=== PATIENT | female | born 1965 | race Two or more races ===

== ENCOUNTER 2020-02-03 08:16 | Outpatient (REF) | payer MEDICAID, SELFPAY ==
[2020-02-03 09:18] LABS: MANUAL DIFF FLAG NO
[2020-02-03 09:26] LABS: Basophils Percent Auto 0.6 % (0-2); Eosinophils Absolute Auto 0.1 X10*3/uL (0.0-0.4); Eosinophils Percent Auto 1.6 % (0-4); Hematocrit 37.8 % (37-47); Hemoglobin 12.2 g/dl (12.0-16.0); Imm Gran Abs Auto 0.01 X10*3/uL (0.00-0.03); Imm Gran Pct Auto 0.2 % (0.0-0.4); Lymphocytes Absolute Auto 1.8 X10*3/uL (1.2-4.9); Lymphocytes Percent Auto 35.2 % (20-40); Mean Corpuscular HGB Conc 32.3 g/dl (31.0-35.0); Mean Corpuscular Hemoglobin 28.3 pg (27.0-33.0); Mean Corpuscular Volume 87.7 fL (80-98); Mean Platelet Volume 10.8 fL (9.4-12.3); Monocytes Absolute Auto 0.5 X10*3/uL (0.1-1.2); Monocytes Percent Auto 8.9 % (2-11); Neutrophils Absolute Auto 2.8 X10*3/uL (2.0-8.3); Neutrophils Percent Auto 53.5 % (45-73); Platelet Count 273 X10*3/uL (160-400); Red Blood Count 4.31 X10*6/uL (4.20-5.50); Red Cell Distribution Width 13.2 % (11.0-16.0); White Blood Count 5.1 X10*3/uL (4.8-10.8)
[2020-02-03 09:49] LABS: Estimated Average Glucose 108 mg/dL; Hemoglobin A1c % 5.4 %
[2020-02-03 09:52] LABS: Alanine Aminotransferase 38 U/L (0-31); Alkaline Phosphatase 98 U/L (39-117); Anion Gap 9 (12-20); Aspartate Amino Transferase 28 U/L (5-31); Bilirubin Total 0.6 mg/dL (0.0-1.0); Blood Urea Nitrogen 14 mg/dL (9-16); C Reactive Protein 0.15 mg/dL (< or = 0.50); Calcium 9.4 mg/dL (8.4-10.2); Carbon Dioxide 32 mmol/L (22-29); Chloride 106 mmol/L (96-108); Cholesterol 180 mg/dL; Estimated Glomerular Filt Rate > 60; Glucose Random 101 mg/dL (60-115); HDL Cholesterol 45 mg/dL; Iron 94 mcg/dL (30-160); LDL Cholesterol Calculated 97 mg/dl; Percent Iron Saturation 26 % (15-50); Potassium 4.1 mmol/l (3.3-5.1); Sodium 143 mmol/L (135-145); Total Iron Binding Capacity 360 mcg/dL (228-428); Total Protein 7.1 g/dL (6.5-8.0); Triglycerides 192 mg/dL; Unsaturated Iron Binding 266 ug/dL
[2020-02-03 10:15] LABS: Ferritin 13 ng/mL (10-250); TSH reflex Free T4 1.08 mIU/mL (0.32-4.0); Vitamin D 25-OH Total 29.5 ng/mL (>30)
[2020-02-03 10:44] LABS: Folate > 20.0 ng/mL (> or = 4.0); Vitamin B12 405 pg/mL (200-900)
[2020-02-04 11:36] LABS: Insulin Level Total 8.2 uIU/mL
[2020-02-06 13:26] LABS: Calcium (PTHI) 9.7 mg/dL (8.6-10.4); PTHI 58 pg/mL (14-64)
[2020-02-06 22:36] LABS: Zinc 70 mcg/dL (60-130)
[2020-02-07 13:36] LABS: Vitamin A 66 mcg/dL (38-98)
[2020-02-08 05:41] LABS: Vitamin B1 19 nmol/L (8-30)
== END 2020-02-03 08:17 | disposition home or self-care (01) ==
LOC: HO.LAB 08:16
PROVIDERS: PCP Nurse Practitioner Family; Visit Provider Physician Assistant
DX: Z98.84 Bariatric surgery status (principal); E78.2 Mixed hyperlipidemia; I10 Essential (primary) hypertension; J30.9 Allergic rhinitis, unspecified; J45.40 Moderate persistent asthma, uncomplicated; Z79.899 Other long term (current) drug therapy
CPT/HCPCS: 36415; 80053; 80061; 82306; 82607; 82728; 82746; 83036; 83525; 83540; 83970; 84425; 84443; 84590; 84630; 85025; 86140

== ENCOUNTER → 2020-02-14 12:48 | Outpatient (BNVA) | payer MEDICAID, SELFPAY | PROVIDERS: Visit Provider Physician Assistant | DX: E66.9 Obesity, unspecified (principal); Z68.36 Body mass index [BMI] 36.0-36.9, adult; E55.9 Vitamin D deficiency, unspecified; Z98.84 Bariatric surgery status | CPT/HCPCS: 99214 ==

== ENCOUNTER 2020-02-19 15:03 | Outpatient (REF) | payer MEDICAID, SELFPAY ==
--- NOTE | 2020-02-19 15:13 | XR_ITS ---
EXAMINATION: XR CERVICAL SPINE CLINICAL INFORMATION: Cervicalgia COMPARISON: Cervical spine x-rays of 12/21/2016 TECHNIQUE: Cervical spine 5 views: AP, lateral, bilateral oblique and open-mouth views. FINDINGS: The vertebral body heights and alignment are maintained. Intervertebral disc spaces are preserved. Atlantoaxial distance is normal. No evidence of prevertebral soft tissue swelling. The airway is patent. Multilevel small anterior endplate osteophytes are noted. Open-mouth views are unremarkable. No evidence of cervical ribs. Visualized lung apices are clear. Mild narrowing of the right C3-C4 and C4-C5 neural foramina and left C5-C6 and C6-C7 neural foramina. Mild facet arthropathy at multiple levels. No evidence of cervical ribs. Visualized lung apices are clear. Open-mouth view is unremarkable. XR/XR cervical spine 4V IMPRESSION: Mild cervical spondylosis, likely mildly increased since the previous study.
== END 2020-02-19 15:04 | disposition home or self-care (01) ==
LOC: HO.XRAY 15:03
PROVIDERS: PCP Nurse Practitioner Family; Visit Provider Emergency Medicine
DX: M54.2 Cervicalgia (principal)
CPT/HCPCS: 72050

== ENCOUNTER → 2020-02-27 10:36 | Outpatient (BNVA) | payer MEDICAID, SELFPAY | PROVIDERS: PCP Nurse Practitioner Family; Referring Provider Nurse Practitioner Family; Visit Provider Internal Medicine | DX: E66.9 Obesity, unspecified (principal); G47.33 Obstructive sleep apnea (adult) (pediatric); J44.9 Chronic obstructive pulmonary disease, unspecified; I10 Essential (primary) hypertension; E78.5 Hyperlipidemia, unspecified; Z88.2 Allergy status to sulfonamides; Z99.89 Dependence on other enabling machines and devices; Z79.899 Other long term (current) drug therapy | CPT/HCPCS: 99212 ==

== ENCOUNTER 2020-03-31 13:00 | Outpatient (RCR) | payer MEDICAID, SELFPAY | END 2020-05-12 10:55 | disposition other institution (70) | LOC: HO.PT 13:00 | PROVIDERS: PCP Emergency Medicine; Visit Provider Emergency Medicine | DX: M54.2 Cervicalgia (principal) | CPT/HCPCS: 97110; 97112; 97140; 97162; 97535 ==

== ENCOUNTER 2020-04-14 11:08 | Outpatient (REF) | payer MEDICAID, SELFPAY ==
--- NOTE | 2020-04-14 | MM_ITS ---
EXAMINATION: MM SCREENING DIGITAL BREAST TOMOSYNTHESIS, BILATERAL CLINICAL INFORMATION: Screening. Asymptomatic. The lifetime risk of breast cancer based on the Tyrer-Cuzick Model is 9%. COMPARISON: Mammography: 04/11/2019, 04/05/2018, 03/13/2017 TECHNIQUE: Digital breast tomosynthesis is performed in both the craniocaudal and mediolateral oblique views along with computer-aided detection (CAD). Synthesized 2D images are generated from the tomosynthesis. FINDINGS: There are scattered areas of fibroglandular density (ACR BI-RADS breast composition Category b). Breast tissue composition borders on predominantly fatty. Background stromal and fibroglandular densities are stable. There is no interval mass or architectural abnormality or abnormal calcifications. No significant changes. MM/MM tomosynthesis screening BI IMPRESSION: No mammographic evidence of malignancy. ASSESSMENT: BI-RADS 1: Negative RECOMMENDATION: Routine annual mammography screening. This patient's information was entered into a reminder system with a target due date for their next mammogram.
== END 2020-04-14 11:09 | disposition home or self-care (01) ==
LOC: HO.MAMMO 11:08
PROVIDERS: PCP Nurse Practitioner Family; Visit Provider Nurse Practitioner Family
DX: Z12.31 Encounter for screening mammogram for malignant neoplasm of breast (principal)
CPT/HCPCS: 77063; 77067

== ENCOUNTER 2020-07-23 11:09 | Outpatient (REF) | payer MEDICAID, SELFPAY ==
--- NOTE | ~2020-07-23 | XR_ITS ---
EXAMINATION: XR HIP, LEFT CLINICAL INFORMATION: Left hip pain COMPARISON: None TECHNIQUE: Two views of the left hip. FINDINGS: There is no fracture, dislocation, destructive process. No definite focal hip joint narrowing, subchondral sclerosis, erosive change, or chondrocalcinosis. The left SI joint and pubis are unremarkable. There are incidental calcified phleboliths in the pelvis. XR/XR hip LT min 2V IMPRESSION: Unremarkable left hip.
--- NOTE | ~2020-07-23 | XR_ITS ---
EXAMINATION: XR KNEE, LEFT CLINICAL INFORMATION: Unilateral primary osteoarthritis left knee. COMPARISON: Standing AP knees and left knee 01/03/2020. TECHNIQUE: Four views of the left knee. FINDINGS: There is no fracture, dislocation, or effusion. Hoffa's fat pad appears normal. There is normal bony mineralization. There is mild tricompartment osteoarthritis, greatest medial knee joint compartment with joint narrowing and marginal osteophytes. There may be some trace faint meniscal chondrocalcinosis on both the medial lateral sides. There is no erosive change. There is spurring at the quadriceps insertion patella and origin patella tendon. XR/XR knee LT 4V IMPRESSION: 1. Mild lateral patellar spurring. 2. Mild tricompartment osteoarthritis, greatest medial compartment. 3. No erosive change or suprapatellar effusion. 4. Spurring extensor mechanism.
--- NOTE | ~2020-07-23 | XR_ITS ---
EXAMINATION: XR LUMBOSACRAL SPINE WITH OBLIQUES CLINICAL INFORMATION: Low back pain. COMPARISON: Radiographs lumbosacral spine 08/26/2019 TECHNIQUE: Lumbar spine is imaged in 5 views: AP, lateral, bilateral oblique, and lateral view coned to lumbosacral junction. FINDINGS: There is normal lumbar segmentation with 5 [id number] lumbar vertebrae. There is normal vertebral height with no compression and no spondylolisthesis or spondylolysis. There are mild degenerative disc changes again present with borderline disc narrowing and vertebral spurring at T12-L1 and L3-L4. There is also anterior vertebral spurring L2-L3. Facet degeneration is present L4-S1. The SI joints and visualized sacrum are unremarkable. XR/XR lumbar spine 4V min IMPRESSION: Degenerative disc and degenerative facet changes similar to prior study 08/26/2019. No interval vertebral compression, spondylolisthesis, or spondylolysis.
== END 2020-07-23 11:10 | disposition home or self-care (01) ==
LOC: HO.XRAY 11:09
PROVIDERS: PCP Internal Medicine; Visit Provider Internal Medicine
DX: M17.12 Unilateral primary osteoarthritis, left knee (principal); M25.552 Pain in left hip; M54.5 Low back pain
CPT/HCPCS: 72110; 73502; 73564

== ENCOUNTER → 2020-09-15 10:50 | Outpatient (BNVA) | payer MEDICAID, SELFPAY | PROVIDERS: PCP Internal Medicine; Visit Provider Internal Medicine | DX: J44.9 Chronic obstructive pulmonary disease, unspecified (principal); G47.33 Obstructive sleep apnea (adult) (pediatric); E66.9 Obesity, unspecified; J30.9 Allergic rhinitis, unspecified; Z99.89 Dependence on other enabling machines and devices | CPT/HCPCS: 99212 ==

== ENCOUNTER 2020-09-16 10:48 | Outpatient (REF) | payer MEDICAID, SELFPAY ==
--- NOTE | ~2020-09-16 | XR_ITS ---
EXAMINATION: XR HAND, RIGHT CLINICAL INFORMATION: Pain right hand. COMPARISON: Radiographs right hand 05/23/2019 TECHNIQUE: PA, lateral, and oblique views of the right hand. FINDINGS: Bony mineralization is normal. There is no fracture, dislocation or destructive process. Ulnar variance is within neutral. The carpus shows no erosive change or chondrocalcinosis. There is borderline narrowing triscaphe joint. The MCP joints are unremarkable. The PIP joints are unremarkable. There are borderline degenerative changes 5th finger DIP joint without erosive change. XR/XR hand RT min 3V IMPRESSION: 1. Borderline narrowing triscaphe joint lateral carpus. 2. Borderline degenerative change 5th finger DIP joint. 3. No erosive change or chondrocalcinosis.
== END 2020-09-16 10:49 | disposition home or self-care (01) ==
LOC: HO.XRAY 10:48
PROVIDERS: PCP Internal Medicine; Visit Provider Internal Medicine
DX: M79.644 Pain in right finger(s) (principal)
CPT/HCPCS: 73130

== ENCOUNTER → 2020-10-23 09:29 | Outpatient (BNVA) | payer MEDICAID, SELFPAY | PROVIDERS: Visit Provider Orthopaedic Surgery | DX: G56.03 Carpal tunnel syndrome, bilateral upper limbs (principal); M65.331 Trigger finger, right middle finger; M65.341 Trigger finger, right ring finger; M20.011 Mallet finger of right finger(s) | CPT/HCPCS: 99202 ==

== ENCOUNTER 2020-10-30 08:41 | Emergency (ER) | payer MEDICAID, SELFPAY ==
[2020-10-30] VITALS (7 sets, daily range): BP systolic 122–137; BP diastolic 65–83; PULSE 69–109; RESP 16–22; TEMP 36.3–37.4; O2SAT 95–98; BMI 41.5
--- NOTE | ~2020-10-30 | XR_ITS ---
EXAMINATION: XR CHEST CLINICAL INFORMATION: Asthma COMPARISON: Previous chest x-ray most recent January 2017 TECHNIQUE: Frontal view of the chest was obtained. FINDINGS: The cardiac and mediastinal contours are normal. The lungs are clear. There is no pleural effusion or pneumothorax. There are surgical clips under the left hemidiaphragm in the region of the stomach. There are mild degenerative changes of the thoracic spine. XR/XR chest 1V IMPRESSION: No evidence for acute disease in chest.
--- NOTE | 2020-10-30 10:00 | ED.ASTHMA ---
HPI - Asthma General Chief Complaint: Asthma Stated Complaint: asthma - difficulty breathing Time Seen by Provider: 10/30/20 09:46 Source: patient and freelance interpreter/translator Mode of arrival: ambulatory Limitations: language barrier History of Present Illness HPI Narrative: 55-year-old female coming in to the emergency department with complaints of sore throat and some shortness of breath with wheezing and cough for 5 days. Subjective fevers and chills and body aches at home. Using home nebulizer with continued symptoms. She was vaccinated for COVID and Brina. no chest pain, leg swelling or pain Related Data Home Medications Medication Instructions Recorded Confirmed albuterol sulfate 90 mcg/actuation 2 puff INHALATION Q6H PRN 02/27/20 aerosol inhaler atorvastatin 40 mg tablet 40 mg PO BEDTIME 02/27/20 citalopram 20 mg tablet 20 mg PO DAILY 02/27/20 cyanocobalamin (vitamin B-12) 500 500 mcg PO DAILY 02/27/20 mcg tablet docusate sodium 100 mg capsule 100 mg PO BID 02/27/20 epinephrine 0.3 mg/0.3 mL 0.3 mg IM Q10M PRN 02/27/20 injection, auto-injector fluticasone 250 mcg-salmeterol 50 1 inh INHALATION BID 02/27/20 mcg/dose blistr powdr for inhalation fluticasone propionate 50 1 spray INTRANASAL DAILY 02/27/20 mcg/actuation nasal spray,suspension furosemide 40 mg tablet 40 mg PO DAILY 02/27/20 ipratropium 0.5 mg-albuterol 3 mg 3 ml INHALATION Q6-8H PRN 02/27/20 (2.5 mg base)/3 mL nebulization soln iron,carbonyl 30 mg-folic acid 800 1 tab PO DAILY 02/27/20 zek-zhynmumb-syip chewable tablet loperamide-simethicone 2 mg-125 mg 1 tab PO Q3H PRN 02/27/20 tablet loratadine 10 mg capsule 10 mg PO DAILY 02/27/20 lorazepam 0.5 mg tablet 0.5 mg PO BID PRN 02/27/20 metformin 500 mg tablet 500 mg PO DAILY 02/27/20 montelukast 10 mg tablet 10 mg PO BEDTIME 02/27/20 olopatadine 0.1 % eye drops 1 drp OPHTHALMIC (EYE) BID 02/27/20 olopatadine 0.2 % eye drops 1 drp OPHTHALMIC (EYE) DAILY 02/27/20 pantoprazole 40 mg tablet,delayed 40 mg PO DAILY 02/27/20 release phentermine 30 mg capsule 30 mg PO DAILY 02/27/20 tramadol 50 mg tablet 50 mg PO DAILY 02/27/20 zolpidem 10 mg tablet 10 mg PO BEDTIME PRN 02/27/20 Previous Rx's Medication Instructions Recorded cholecalciferol (vitamin D3) 25 25 mcg PO DAILY #30 cap 02/14/20 mcg (1,000 unit) capsule diclofenac sodium 75 mg 75 mg PO BID #60 tab 05/08/20 tablet,delayed release albuterol sulfate 2.5 mg INHALATION Q4H PRN #75 ml 10/30/20 prednisone 40 mg PO DAILY #8 tab 10/30/20 Allergies Allergy/AdvReac Type Severity Reaction Status Date / Time sulfamethoxazole Allergy Intermediate RASH Verified 10/23/20 10:31 [From Bactrim] Review of Systems Review of Systems: Yes all other systems are reviewed and are negative Constitutional: Constitutional: Reports no additional constitutional complaints, Reports body ache(s), Reports chills, Reports fever(s), Denies headache(s) and Denies weakness Eyes: Eyes: Reports no additional eye complaints and Denies change in vision ENT: Reports system reviewed and no additional complaints, except as documented, Denies dizziness, Denies headache(s), Denies nasal congestion, Denies nasal discharge, Denies neck pain and Reports sore throat Cardiovascular: Cardiovascular: Reports no additional cardiovascular complaints, Denies chest pain, Denies leg edema and Reports dyspnea Respiratory: Respiratory: Reports no additional respiratory complaints, Reports cough and Reports dyspnea Gastrointestinal: Gastrointestinal: Reports no additional gastrointestinal complaints, Denies abdominal pain, Denies diarrhea, Denies nausea and Denies vomiting Genitourinary: Genitourinary: Reports no additional female genitourinary complaints and Denies urinary incontinence Musculoskeletal: Musculoskeletal: Reports no additional musculoskeletal complaints, Denies back pain, Denies arthralgias, Denies joint swelling, Denies neck pain, Denies numbness and Denies tingling Integumentary/Breasts: Skin/Breast: Reports system reviewed and no additional complaints, except as docu and Denies rash Neurologic: Reports system reviewed and no additional complaints, except as documented, Denies Abnormal speech present, Denies dizziness, Denies headache(s), Denies numbness, Denies tingling and Denies weakness PMFSH Past Medical History Attestation statement: The following information was validated with the patient. Source: old records reviewed and nursing notes reviewed Medical History Allergic rhinitis Arthritis Asthma Axillary hidradenitis suppurativa COPD (chronic obstructive pulmonary disease) GERD (gastroesophageal reflux disease) Hyperlipidemia Hypertension Obesity (BMI 30-39.9) Obstructive sleep apnea KAYLEE on CPAP Renal stones Surgical History H/O hemicolectomy H/O lithotripsy H/O tubal ligation Hx of cholecystectomy S/P laparoscopic sleeve gastrectomy Family History Family History Mother No problems noted. Father No problems noted. Son No problems noted. Daughter No problems noted. Son No problems noted. Sister No problems noted. Sister No problems noted. Brother No problems noted. Brother No problems noted. Brother No problems noted. Brother No problems noted. 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 Physical Exam Vital Signs: Vital Signs: Last Vital Signs Temp 98.8 F 10/30/20 16:37 Pulse 100 10/30/20 16:37 Resp 20 10/30/20 16:37 BP 132/73 10/30/20 16:37 Pulse Ox 98 10/30/20 16:37 Body Mass Index 41.5 Const: General: cooperative, healthy appearing, comfortable and no acute distress Orientation/consciousness: patient oriented x3 Limitations: no limitations HENMT: Head: Yes normal to inspection Ears: hearing grossly normal bilaterally General nose exam: Normal external nose present Face and sinus: Yes normal facial exam Mouth: Normal oral and palatal mucosa present Throat: Yes posterior oropharynx normal Eyes: General: appearance normal, both eyes and all related structures Pupils: Equal, round and reactive pupils present Neck: Neck: Yes normal visual inspection Chest: Chest palpation & inspection: normal inspection of the chest Resp: Other: expiratory wheezing throughout Effort & Inspection: normal respiratory effort Cardio: Rate: regular rate Rhythm: regular rhythm Peripheral pulses: Peripheral pulses 2+ throughout GI: Inspection: Yes normal to inspection Palpation (GI): Soft to palpation and nontender Auscultation: normal bowel sounds Back/Spine/Pelvis: Thoracic/Lumbar Spine: thoracic and lumbar spine normal to inspection Skin: General skin exam: no rashes or lesions noted Neuro: General: patient oriented x3, no focal motor deficits and normal sensation to monofilament Cranial nerves: Yes Equal, round and reactive pupils present Cognition (Neuro): normal cognition Speech: No Abnormal speech present Gait exam (Neuro): Normal gait present Motor exam (neuro): 5/5 motor strength present throughout Extrem: General: Yes normal to inspection, Yes no pedal edema and Yes no calf tenderness Course Course Course Narrative: 55-year-old female here with flu-like symptoms x5 days. H/o asthma triggered by infections. will check labs, chest x-ray, EKG, COVID screen. Will give DuoNeb, Solu-Medrol and magnesium - Labs unremarkable with the exception of hypo magnesemia. This was replaced the IV. Chest x-ray shows no acute finding. EKG shows no ischemic changes. COVID screen negative. Likely viral syndrome which is triggering her asthma. Patient is feeling improved. Will need ambulation trial with pulse oximeter prior dispo home. 1530-Ambulated with oxugen saturation >97%. Mild tachycardia but likely secondary to repeated albuterol treatments. Feeling much better. Likely asthma exacerbation triggered by viral syndrome. Reviewed worrisome signs and symptoms and when to return to the emergency department. Comfortable discharge home. MDM - Asthma MDM Narrative Medical decision making narrative: viral syndrome Differential Diagnosis Differential diagnosis: Likely Acute exacerbation and Pneumonia Medical Records Attestation: I reviewed the patient's medical records. Lab Data Attestation: I reviewed the patient's lab results. Result diagrams: 10/30/20 10:42 10/30/20 10:42 Labs: Lab Results 10/30/20 10/30/20 10/30/20 Range/Units 10:42 10:42 10:42 WBC 8.0 (4.8-10.8) X10*3/uL RBC 4.12 L (4.20-5.50) X10*6/uL Hgb 11.4 L (12.0-16.0) g/dl Hct 34.7 L (37-47) % MCV 84.2 (80-98) fL MCH 27.7 (27.0-33.0) pg MCHC 32.9 (31.0-35.0) g/dl RDW 13.7 (11.0-16.0) % Plt Count 249 (160-400) X10*3/uL MPV 10.8 (9.4-12.3) fL Immature Gran % (Auto) 0.5 H (0.0-0.4) % Neut % (Auto) 69.3 (45-73) % Lymph % (Auto) 21.3 (20-40) % [place] % (Auto) 8.0 (2-11) % Eos % (Auto) 0.6 (0-4) % Baso % (Auto) 0.3 (0-2) % Lymph # (Auto) 1.7 (1.2-4.9) X10*3/uL [place] # (Auto) 0.6 (0.1-1.2) X10*3/uL Eos # (Auto) 0.1 (0.0-0.4) X10*3/uL Baso # (Auto) 0.0 (0.0-0.2) X10*3/uL Abs Immat Gran (auto) 0.04 H (0.00-0.03) X10*3/uL Absolute Neuts (auto) 5.6 (2.0-8.3) X10*3/uL Absolute Nucleated RBC 0.000 (0.0-0.012) X10*3/uL Nucleated RBC % (auto) 0.0 (0.0-0.2) /100WBC Sodium 143 (135-145) mmol/L Potassium 3.4 (3.3-5.1) mmol/L Chloride 106 (96-108) mmol/L Carbon Dioxide 28 (22-29) mmol/L Anion Gap 12 (12-20) BUN 10 (9-16) mg/dL Creatinine 0.83 (0.5-1.4) mg/dL Estim Creat Clear Calc 80.9 Estimated GFR > 60 Random Glucose 98 (60-115) mg/dL Calcium 9.1 (8.4-10.2) mg/dL Magnesium 1.2 L* (1.6-2.6) mg/dL Troponin I High Sens < 3.5 (<3.5-17.0) ng/L Coronavirus (PCR) (Negative) Influenza Type A (PCR) (Negative) Influenza Type B (PCR) (Negative) RSV RNA Qual (PCR) (Negative) 10/30/20 Range/Units 10:42 WBC (4.8-10.8) X10*3/uL RBC (4.20-5.50) X10*6/uL Hgb (12.0-16.0) g/dl Hct (37-47) % MCV (80-98) fL MCH (27.0-33.0) pg MCHC (31.0-35.0) g/dl RDW (11.0-16.0) % Plt Count (160-400) X10*3/uL MPV (9.4-12.3) fL Immature Gran % (Auto) (0.0-0.4) % Neut % (Auto) (45-73) % Lymph % (Auto) (20-40) % [place] % (Auto) (2-11) % Eos % (Auto) (0-4) % Baso % (Auto) (0-2) % Lymph # (Auto) (1.2-4.9) X10*3/uL [place] # (Auto) (0.1-1.2) X10*3/uL Eos # (Auto) (0.0-0.4) X10*3/uL Baso # (Auto) (0.0-0.2) X10*3/uL Abs Immat Gran (auto) (0.00-0.03) X10*3/uL Absolute Neuts (auto) (2.0-8.3) X10*3/uL Absolute Nucleated RBC (0.0-0.012) X10*3/uL Nucleated RBC % (auto) (0.0-0.2) /100WBC Sodium (135-145) mmol/L Potassium (3.3-5.1) mmol/L Chloride (96-108) mmol/L Carbon Dioxide (22-29) mmol/L Anion Gap (12-20) BUN (9-16) mg/dL Creatinine (0.5-1.4) mg/dL Estim Creat Clear Calc Estimated GFR Random Glucose (60-115) mg/dL Calcium (8.4-10.2) mg/dL Magnesium (1.6-2.6) mg/dL Troponin I High Sens (<3.5-17.0) ng/L Coronavirus (PCR) NEGATIVE (Negative) Influenza Type A (PCR) NEGATIVE (Negative) Influenza Type B (PCR) NEGATIVE (Negative) RSV RNA Qual (PCR) NEGATIVE (Negative) Imaging Data Chest x-ray: Attestation: I personally reviewed and interpreted this imaging study as follows: Radiologist's impression: EXAMINATION: XR CHEST CLINICAL INFORMATION: Asthma COMPARISON: Previous chest x-ray most recent January 2017 TECHNIQUE: Frontal view of the chest was obtained. FINDINGS: The cardiac and mediastinal contours are normal. The lungs are clear. There is no pleural effusion or pneumothorax. There are surgical clips under the left hemidiaphragm in the region of the stomach. There are mild degenerative changes of the thoracic spine. XR/XR chest 1V IMPRESSION: No evidence for acute disease in chest. ECG Data Attestation: I personally reviewed and interpreted this ECG as follows: ECG interpretation date: 10/30/20 ECG interpretation time: 10:24 Interpretation: Normal sinus rhythm with a rate of 73, normal [place], normal QRS, normal QT Discharge Plan Discharge Clinical Impression: Acute viral syndrome Asthma Qualifiers: Asthma severity: moderate Asthma persistence: persistent Asthma complication type: with acute exacerbation Qualified Code(s): J45.41 - Moderate persistent asthma with (acute) exacerbation Patient Disposition: Home, Self-Care Instructions: Asthma (ED), Viral Syndrome (ED) Additional Instructions: Start prednisone tomorrow Continue nebulizers at home Increase fluids, rest Prescriptions: New prednisone 20 mg tablet 40 mg PO DAILY Qty: 8 RF: 0 albuterol sulfate 2.5 mg /3 mL (0.083 %) solution for nebulization 2.5 mg inhalation Q4H PRN (Reason: shortness of breath or wheezing) Qty: 75 RF: 0 No Action diclofenac sodium 75 mg tablet,delayed release (DR/EC) 75 mg PO BID Qty: 60 RF: 3 cholecalciferol (vitamin D3) 25 mcg (1,000 unit) capsule 25 mcg PO DAILY Qty: 30 RF: 11 citalopram 20 mg tablet 20 mg PO DAILY RF: 0 zolpidem 10 mg tablet 10 mg PO BEDTIME PRNRF: 0 lorazepam 0.5 mg tablet 0.5 mg PO BID PRNRF: 0 olopatadine 0.1 % drops 1 drp ophthalmic (eye) BID RF: 0 furosemide 40 mg tablet 40 mg PO DAILY RF: 0 epinephrine 0.3 mg/0.3 mL auto-injector 0.3 mg IM Q10M PRNRF: 0 ipratropium-albuterol 0.5 mg-3 mg(2.5 mg base)/3 mL solution for nebulization 3 ml inhalation Q6-8H PRNRF: 0 olopatadine [Pataday] 0.2 % drops 1 drp ophthalmic (eye) DAILY RF: 0 tramadol 50 mg tablet 50 mg PO DAILY RF: 0 cyanocobalamin (vitamin B-12) 500 mcg tablet 500 mcg PO DAILY RF: 0 loperamide-simethicone 2-125 mg tablet 1 tab PO Q3H PRNRF: 0 Opurity Multivitamin 30 mg iron- 800 mcg tablet,chewable 1 tab PO DAILY RF: 0 pantoprazole 40 mg tablet,delayed release (DR/EC) 40 mg PO DAILY RF: 0 docusate sodium [Colace] 100 mg capsule 100 mg PO BID RF: 0 phentermine 30 mg capsule 30 mg PO DAILY RF: 0 metformin 500 mg tablet 500 mg PO DAILY RF: 0 albuterol sulfate [ProAir HFA] 90 mcg/actuation HFA aerosol inhaler 2 puff inhalation Q6H PRNRF: 0 montelukast 10 mg tablet 10 mg PO BEDTIME RF: 0 loratadine 10 mg capsule 10 mg PO DAILY RF: 0 fluticasone propionate [Flonase Allergy Relief] 50 mcg/actuation spray,suspension 1 spray intranasal DAILY RF: 0 atorvastatin 40 mg tablet 40 mg PO BEDTIME RF: 0 fluticasone propion-salmeterol [Advair Diskus] 250-50 mcg/dose blister with device 1 inh inhalation BID RF: 0 Referrals: Leelee Yanes MD [Primary Care Provider] - 2 days Interventions: ED Discharge Assessment Last Done: 10/30/20 16:37 Discharge Date/Time: 10/30/20 16:38 Print Language: Indian
--- NOTE | 2020-10-30 10:19 | ECG_ITS ---
Test Reason : SOB Blood Pressure : / mmHG Vent. Rate : 073 BPM Atrial Rate : 073 BPM P-R Int : 162 ms QRS Dur : 096 ms QT Int : 394 ms P-R-T Axes : 061 065 032 degrees QTc Int : 434 ms Normal sinus rhythm Normal ECG When compared with ECG of 31-JUL-2016 22:46, No significant change was found Referred By: Marlene Meza Electronically Signed By:ANGELA ZIMMERMAN MD
[2020-10-30] MEDS: Magnesium Sulfate/H2O 2 GM/50 ML PIGGYBACK IV ×2 (10:50→11:44)
[2020-10-30] MEDS: methylPREDNISolone Sod Succ 125 MG/2 ML VIAL IVPUSH (10:50)
[2020-10-30 10:51] LABS: MANUAL DIFF FLAG NO
--- NOTE | 2020-10-30 10:56 | PC.NURSE ---
pt comes to the ER for shortness of breath with dry cough. She has scattered wheezing throughout and states this asthma attack started when it got very hot out this week.
[2020-10-30 11:00] LABS: Basophils Percent Auto 0.3 % (0-2); Eosinophils Absolute Auto 0.1 X10*3/uL (0.0-0.4); Eosinophils Percent Auto 0.6 % (0-4); Hematocrit 34.7 % (37-47); Hemoglobin 11.4 g/dl (12.0-16.0); Imm Gran Abs Auto 0.04 X10*3/uL (0.00-0.03); Imm Gran Pct Auto 0.5 % (0.0-0.4); Lymphocytes Absolute Auto 1.7 X10*3/uL (1.2-4.9); Lymphocytes Percent Auto 21.3 % (20-40); Mean Corpuscular HGB Conc 32.9 g/dl (31.0-35.0); Mean Corpuscular Hemoglobin 27.7 pg (27.0-33.0); Mean Corpuscular Volume 84.2 fL (80-98); Mean Platelet Volume 10.8 fL (9.4-12.3); Monocytes Absolute Auto 0.6 X10*3/uL (0.1-1.2); Neutrophils Absolute Auto 5.6 X10*3/uL (2.0-8.3); Neutrophils Percent Auto 69.3 % (45-73); Platelet Count 249 X10*3/uL (160-400); Red Blood Count 4.12 X10*6/uL (4.20-5.50); Red Cell Distribution Width 13.7 % (11.0-16.0)
[2020-10-30 11:24] LABS: Anion Gap 12 (12-20); Blood Urea Nitrogen 10 mg/dL (9-16); Calcium 9.1 mg/dL (8.4-10.2); Carbon Dioxide 28 mmol/L (22-29); Chloride 106 mmol/L (96-108); Creatinine Clr Calc Pharmacy 80.9; Estimated Glomerular Filt Rate > 60; Glucose Random 98 mg/dL (60-115); Magnesium 1.2 mg/dL (1.6-2.6); Potassium 3.4 mmol/L (3.3-5.1); Sodium 143 mmol/L (135-145)
[2020-10-30 11:25] LABS: Troponin-I High Sensitivity < 3.5 ng/L (<3.5-17.0)
[2020-10-30] MEDS: Albuterol/Iprat 2.5/0.5MG 3 ML AMPUL.NEB INHALE (11:35)
[2020-10-30 11:52] LABS: Influenza A PCR NEGATIVE (Negative); Influenza B PCR NEGATIVE (Negative); Resp Syncy Virus RNA Qual PCR NEGATIVE (Negative); SARS COV2 PCR INHOUSE NEGATIVE (Negative)
[2020-10-30] MEDS: Albuterol Sulfate (0.083%) 2.5 MG/3 ML VIAL.NEB 5 MG INHALE (14:32)
== END 2020-10-30 16:38 | disposition home or self-care (01) ==
PROVIDERS: Nurse Practitioner Family; Emergency Provider Emergency Medicine Emergency Medical Services; PCP Internal Medicine
DX: J45.41 Moderate persistent asthma with (acute) exacerbation (principal); B34.9 Viral infection, unspecified; E83.42 Hypomagnesemia; Z79.899 Other long term (current) drug therapy; Z20.822 Contact with and (suspected) exposure to COVID-19
CPT/HCPCS: 0241U; 36415; 71045; 80048; 83735; 84484; 85025; 93005; 94640; 96365; 96366; 96375; 99284; J2930; J3475

== ENCOUNTER 2020-11-05 12:18 | Emergency (ER) | payer MEDICAID, SELFPAY ==
--- NOTE | ~2020-11-05 | XR_ITS ---
EXAMINATION: XR CHEST CLINICAL INFORMATION: Asthma exacerbation COMPARISON: Previous chest x-ray 10/30/2020 TECHNIQUE: 2 views of the chest were obtained. FINDINGS: The cardiac and mediastinal contours are normal. The lungs are clear. There is no pleural effusion or pneumothorax. There are degenerative changes of the spine. There are surgical clips in the left hemidiaphragm in the region of the stomach. XR/XR chest 2V IMPRESSION: No evidence for acute disease in the chest..
[2020-11-05 12:25] VITALS: BP 136/79; PULSE 83; RESP 18; TEMP 36.8; O2SAT 97; BMI 41.3
--- NOTE | 2020-11-05 13:03 | ECG_ITS ---
Test Reason : DYSPNEA Blood Pressure : / mmHG Vent. Rate : 072 BPM Atrial Rate : 072 BPM P-R Int : 152 ms QRS Dur : 098 ms QT Int : 414 ms P-R-T Axes : 059 052 022 degrees QTc Int : 453 ms Normal sinus rhythm Normal ECG When compared with ECG of 30-OCT-2020 10:24, No significant change was found Referred By: Melani Moreno Electronically Signed By:KETAN RUBALCAVA
[2020-11-05 13:56] LABS: MANUAL DIFF FLAG NO
[2020-11-05 14:01] LABS: Basophils Percent Auto 0.3 % (0-2); Eosinophils Absolute Auto 0.1 X10*3/uL (0.0-0.4); Eosinophils Percent Auto 0.9 % (0-4); Hemoglobin 12.2 g/dl (12.0-16.0); Imm Gran Abs Auto 0.05 X10*3/uL (0.00-0.03); Imm Gran Pct Auto 0.4 % (0.0-0.4); Lymphocytes Percent Auto 26.5 % (20-40); Mean Corpuscular HGB Conc 32.1 g/dl (31.0-35.0); Mean Corpuscular Hemoglobin 27.4 pg (27.0-33.0); Mean Corpuscular Volume 85.2 fL (80-98); Mean Platelet Volume 10.8 fL (9.4-12.3); Monocytes Absolute Auto 0.8 X10*3/uL (0.1-1.2); Monocytes Percent Auto 6.8 % (2-11); Neutrophils Absolute Auto 7.3 X10*3/uL (2.0-8.3); Neutrophils Percent Auto 65.1 % (45-73); Platelet Count 315 X10*3/uL (160-400); Red Blood Count 4.46 X10*6/uL (4.20-5.50); White Blood Count 11.2 X10*3/uL (4.8-10.8)
[2020-11-05] MEDS: Magnesium Sulfate/H2O 2 GM/50 ML PIGGYBACK IV (14:03)
[2020-11-05] MEDS: methylPREDNISolone Sod Succ 125 MG/2 ML VIAL IVPUSH (14:03)
[2020-11-05] MEDS: Albuterol Sulfate (0.083%) 2.5 MG/3 ML VIAL.NEB 10 MG INHALE (14:06)
[2020-11-05 14:13] LABS: Prothrombin Time 10.9 SEC (9.9-13.0)
--- NOTE | 2020-11-05 14:13 | ED.SOB ---
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 Reports that she was seen here on 10/30/2020 and had treatment was sent home reports she felt a little bit better although her symptoms continue to worsen therefore she followed up with her primary care provider and they instructed her to come here and per patient for admission. Patient denies any fevers, dizziness, headaches, neck pain /stiffness, chest pain, dyspnea on exertion, orthopnea, palpitations, lower extremity edema, nausea /vomiting / diarrhea / constipation, abdominal pain, back pain, recent travel or sick contacts or any other symptoms complaints or concerns at this time. MD elicited complaint: shortness of breath, cough, asthma attack and anxiety Pertinent past history: COPD and asthma Onset (ago): day(s) ( Eight days worse today) Timing: constant and progressively worsening Severity: severe Exacerbating factors: coughing Relieving factors: nothing Known history of: COPD, asthma and diabetes Associated symptoms: wheezing and sputum production Treatment prior to arrival: other ( patient reports she has been using her albuterol inhaler, nebulizers and no symptomatic relief) Related Data Home Medications Medication Instructions Recorded Confirmed albuterol sulfate 90 mcg/actuation 2 puff INHALATION Q6H PRN 02/27/20 11/05/20 aerosol inhaler atorvastatin 40 mg tablet 40 mg PO BEDTIME 02/27/20 11/05/20 docusate sodium 100 mg capsule 100 mg PO BID 02/27/20 11/05/20 epinephrine 0.3 mg/0.3 mL 0.3 mg IM Q10M PRN 02/27/20 11/05/20 injection, auto-injector fluticasone 250 mcg-salmeterol 50 1 inh INHALATION BID 02/27/20 11/05/20 mcg/dose blistr powdr for inhalation fluticasone propionate 50 1 spray INTRANASAL DAILY 10/29/20 07/08/21 mcg/actuation nasal spray,suspension furosemide 40 mg tablet 40 mg PO DAILY 02/27/20 11/05/20 ipratropium 0.5 mg-albuterol 3 mg 3 ml INHALATION Q6-8H PRN 02/27/20 11/05/20 (2.5 mg base)/3 mL nebulization soln loperamide-simethicone 2 mg-125 mg 1 tab PO Q3H PRN 02/27/20 11/05/20 tablet loratadine 10 mg capsule 10 mg PO DAILY 02/27/20 11/05/20 lorazepam 0.5 mg tablet 0.5 mg PO BID PRN 02/27/20 11/05/20 montelukast 10 mg tablet 10 mg PO BEDTIME 02/27/20 11/05/20 olopatadine 0.1 % eye drops 1 drp OPHTHALMIC (EYE) BID 02/27/20 11/05/20 pantoprazole 40 mg tablet,delayed 40 mg PO DAILY 02/27/20 11/05/20 release tramadol 50 mg tablet 50 mg PO DAILY 02/27/20 11/05/20 zolpidem 10 mg tablet 10 mg PO BEDTIME PRN 02/27/20 11/05/20 acetaminophen 1 tab PO Q8H PRN 11/05/20 11/05/20 citalopram 1 tab PO QAM 11/05/20 11/05/20 cyclobenzaprine 1 tab PO BID PRN 11/05/20 11/05/20 diclofenac sodium 75 mg PO BID PRN 11/05/20 11/05/20 hydroxyzine HCl 1 tab PO BEDTIME PRN 11/05/20 11/05/20 ketotifen fumarate 1 drp OPHTHALMIC (EYE) BID 11/05/20 11/05/20 metformin 1 tab PO QPM 11/05/20 11/05/20 Previous Rx's Medication Instructions Recorded cholecalciferol (vitamin D3) 25 25 mcg PO DAILY #30 cap 02/14/20 mcg (1,000 unit) capsule albuterol sulfate 2.5 mg INHALATION Q4H PRN #75 ml 10/30/20 prednisone 40 mg PO DAILY #8 tab 10/30/20 albuterol sulfate 0.63 mg INHALATION QID PRN #75 ml 11/05/20 albuterol sulfate 1 inh INHALATION QID PRN #8.5 g 11/05/20 azithromycin See Rx Instructions .ROUTE 11/05/20 .COMPLEX #6 tab codeine-guaifenesin [Guaifenesin 5 ml PO Q6H PRN #120 ml 11/05/20 AC] prednisone 60 mg PO DAILY 5 Days #15 tab 11/05/20 Allergies Allergy/AdvReac Type Severity Reaction Status Date / Time sulfamethoxazole Allergy Intermediate RASH Verified 11/05/20 12:25 [From Bactrim] Review of Systems Review of Systems: Constitutional : denies med noncompliance, no history of PE or DVT, denies recent travel, No Fever, No Chills ENT/Mouth : No Hoarseness, No sore throat, No Rhinorrhea Eyes: No Redness, No Discharge, No Vision Changes Cardiovascular : No Chest Pain, No SOB, No Dyspnea on Exertion, No Edema, no pleurisy, Respiratory : Positive Cough, Positive Sputum, Positive wheezing, no stridor, no hemoptysis, Gastrointestinal : No Nausea, No Vomiting, No Diarrhea, No abdominal Pain Genitourinary : No Dysuria, No Hematuria Musculoskeletal : No joint pain, No Myalgias Extremities: no extremity swelling /pain Skin : No rash, no itching, no swelling Neuro : No Weakness, No Numbness, No Headache Psych : No anxiety, depression Heme/Lymph: No Bruising, No Bleeding Endocrine : No Polyuria, No Polydipsia Yes all other systems are reviewed and are negative [facility] Past Medical History Attestation statement: The following information was validated with the patient. Medical History Allergic rhinitis Arthritis Asthma Axillary hidradenitis suppurativa COPD (chronic obstructive pulmonary disease) COVID-19 vaccine administered Diabetes GERD (gastroesophageal reflux disease) Hyperlipidemia Hypertension Obesity (BMI 30-39.9) KAYLEE on CPAP Renal stones Surgical History H/O colonoscopy H/O hemicolectomy H/O lithotripsy H/O tubal ligation History of esophagogastroduodenoscopy (EGD) History of salpingoophorectomy Hx of cholecystectomy Hx of cystoscopy Hx of knee surgery Hx of total knee replacement S/P laparoscopic sleeve gastrectomy Family History Family History Mother No problems noted. Father No problems noted. Son No problems noted. Daughter No problems noted. Son No problems noted. Sister No problems noted. Sister No problems noted. Brother No problems noted. Brother No problems noted. Brother No problems noted. Brother No problems noted. 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 Blood pressure normal. Heart rate normal. Respiration rate normal. Temperature normal. Oxygen saturation normal. Appearance: Alert. Oriented X3. No acute distress. Head: Normal external exam. Normocephalic. Atraumatic. Eyes: PERRLA. EOMI. Conjunctiva and sclera normal. Eyelids normal. ENT: EAC normal. TM's Normal. Pharynx normal. Uvula midline. Moist mucous membranes. No trismus noted. No drooling noted. No muffled voice noted. Neck: Normal inspection. Neck supple. FROM. No adenopathy. Thyroid Normal. No meningeal signs. No neck mass noted. CVS: Normal heart rate and rhythm. Heart sound normal. Pulses normal throughout. No murmurs/rales/gallops. Respiratory: No respiratory distress. Painless inspiration. Breath sounds normal. No wheezes/rales/rhonchi noted. Chest nontender. No accessory muscle usage noted or decreased air movement noted. Abdomen: Soft and nontender. Bowel sounds normal in all 4 quadrants. No distention noted. No organomegaly noted. No visible injury noted. Back: Full range of motion noted. No rashes/lesion/induration/fluctuance or signs of infection noted. Skin: Skin warm and dry. Normal skin color. Normal skin turgor. No rashes/lesions/lacerations noted. Extremities: No lower extremity edema. no calf tenderness is noted. Extremities exhibit normal range of motion. Extremities nontender. Neuro: Oriented X 3. No motor deficit. No sensory deficit. Reflexes normal. Normal steady gait. No focal neuro deficits noted. Vascular: + radial pulses/+ 2 distal pedal pulses/+2 dorsalis pedis b/l. Normal cap refill. No cyanosis noted to upper extremity nails and lower extremity toes nails. 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 Plan: Labs, Chest x-ray, respiratory panel, EKG. Provide an hour long breathing treatment, 125 mg of IV Solu-Medrol and 2 g of magnesium then re-evaluate. Reevaluation(s) Reevaluation #1: - Labs returned patient an elevated white blood cell count [id number]. Carbon dioxide 31. BUN 19. magnesium 1.3 which is low. ALT/ alkaline phosphate 34/130 mildly elevated when compared to prior not significantly. Otherwise all other labs within normal limits. Patient positive for Entero/Rhino negative for all other viruses. Chest x-ray negative for pneumonia or any other acute processes. EKG normal sinus rhythm no acute ischemic changes were noted. - Patient's magnesium was replaced with 2 g of magnesium. She reports she is feeling completely better explain to her that she does not need admission at this time. Will DC home with symptomatic treatment instructions return if any new or worsening symptoms to follow up with primary care provider. Patient understands agrees with this plan. Time: 16:01 MDM - SOB/Dyspnea Medical Records Attestation: I reviewed the patient's medical records. Lab Data Attestation: I reviewed the patient's lab results. Result diagrams: 11/05/20 13:49 11/05/20 13:49 Labs: Lab Results 11/05/20 11/05/20 11/05/20 Range/Units 13:49 13:49 13:49 WBC 11.2 H (4.8-10.8) X10*3/uL RBC 4.46 (4.20-5.50) X10*6/uL Hgb 12.2 (12.0-16.0) g/dl Hct 38.0 (37-47) % MCV 85.2 (80-98) fL MCH 27.4 (27.0-33.0) pg MCHC 32.1 (31.0-35.0) g/dl RDW 14.0 (11.0-16.0) % Plt Count 315 D (160-400) X10*3/uL MPV 10.8 (9.4-12.3) fL Immature Gran % (Auto) 0.4 (0.0-0.4) % Neut % (Auto) 65.1 (45-73) % Lymph % (Auto) 26.5 (20-40) % [place] % (Auto) 6.8 (2-11) % Eos % (Auto) 0.9 (0-4) % Baso % (Auto) 0.3 (0-2) % Lymph # (Auto) 3.0 (1.2-4.9) X10*3/uL [place] # (Auto) 0.8 (0.1-1.2) X10*3/uL Eos # (Auto) 0.1 (0.0-0.4) X10*3/uL Baso # (Auto) 0.0 (0.0-0.2) X10*3/uL Abs Immat Gran (auto) 0.05 H (0.00-0.03) X10*3/uL Absolute Neuts (auto) 7.3 (2.0-8.3) X10*3/uL Absolute Nucleated RBC 0.000 (0.0-0.012) X10*3/uL Nucleated RBC % (auto) 0.0 (0.0-0.2) /100WBC PT 10.9 (9.9-13.0) SEC INR 1.0 (0.9-1.1) Sodium 143 (135-145) mmol/L Potassium 3.3 (3.3-5.1) mmol/L Chloride 102 (96-108) mmol/L Carbon Dioxide 31 H (22-29) mmol/L Anion Gap 13 (12-20) BUN 19 H D (9-16) mg/dL Creatinine 1.17 (0.5-1.4) mg/dL Estim Creat Clear Calc 57.3 Estimated GFR 48 Random Glucose 103 (60-115) mg/dL Lactic Acid (0.5-2.0) mmol/L Calcium 9.7 D (8.4-10.2) mg/dL Magnesium 1.3 L* (1.6-2.6) mg/dL Total Bilirubin 0.5 (0.0-1.0) mg/dL AST 18 (5-31) U/L ALT 34 H (0-31) U/L Alkaline Phosphatase 130 H D (39-117) U/L Troponin I High Sens (<3.5-17.0) ng/L B-Natriuretic Peptide (<100) pg/mL Total Protein 7.4 (6.5-8.0) g/dL Albumin 4.1 (3.5-5.0) g/dL Respiratory Panel [place] Adenovirus (Rapid PCR) (Not Detect.) B.pert (TEM-PCR) (Not Detect.) B.parapertussis DNA PCR (Not Detect.) C. pneumoniae DNA (PCR) (Not Detect.) Coronavirus OC43 (PCR) (Not Detect.) Coronavirus HKU1 (PCR) (Not Detect.) Coronavirus 229E (PCR) (Not Detect.) Coronavirus NL63 (PCR) (Not Detect.) Human Metapneumovir PCR (Not Detect.) Influenza A (RT-PCR) (Not Detect.) Influenza B (RT-PCR) (Not Detect.) M. pneumoniae (PCR) (Not Detect.) Parainfluenza 1 (PCR) (Not Detect.) Parainfluenza 2 (PCR) (Not Detect.) Parainfluenza 3 (PCR) (Not Detect.) Parainfluenza 4 (PCR) (Not Detect.) RSV (PCR) (Not Detect.) Entero/Rhino (PCR) (Not Detect.) SARS-CoV-2 RNA (RT-PCR) (Not Detect.) 11/05/20 11/05/20 11/05/20 Range/Units 13:49 13:49 14:10 WBC (4.8-10.8) X10*3/uL RBC (4.20-5.50) X10*6/uL Hgb (12.0-16.0) g/dl Hct (37-47) % MCV (80-98) fL MCH (27.0-33.0) pg MCHC (31.0-35.0) g/dl RDW (11.0-16.0) % Plt Count (160-400) X10*3/uL MPV (9.4-12.3) fL Immature Gran % (Auto) (0.0-0.4) % Neut % (Auto) (45-73) % Lymph % (Auto) (20-40) % [place] % (Auto) (2-11) % Eos % (Auto) (0-4) % Baso % (Auto) (0-2) % Lymph # (Auto) (1.2-4.9) X10*3/uL [place] # (Auto) (0.1-1.2) X10*3/uL Eos # (Auto) (0.0-0.4) X10*3/uL Baso # (Auto) (0.0-0.2) X10*3/uL Abs Immat Gran (auto) (0.00-0.03) X10*3/uL Absolute Neuts (auto) (2.0-8.3) X10*3/uL Absolute Nucleated RBC (0.0-0.012) X10*3/uL Nucleated RBC % (auto) (0.0-0.2) /100WBC PT (9.9-13.0) SEC INR (0.9-1.1) Sodium (135-145) mmol/L Potassium (3.3-5.1) mmol/L Chloride (96-108) mmol/L Carbon Dioxide (22-29) mmol/L Anion Gap (12-20) BUN (9-16) mg/dL Creatinine (0.5-1.4) mg/dL Estim Creat Clear Calc Estimated GFR Random Glucose (60-115) mg/dL Lactic Acid 1.0 (0.5-2.0) mmol/L Calcium (8.4-10.2) mg/dL Magnesium (1.6-2.6) mg/dL Total Bilirubin (0.0-1.0) mg/dL AST (5-31) U/L ALT (0-31) U/L Alkaline Phosphatase (39-117) U/L Troponin I High Sens < 3.5 (<3.5-17.0) ng/L B-Natriuretic Peptide 16 (<100) pg/mL Total Protein (6.5-8.0) g/dL Albumin (3.5-5.0) g/dL Respiratory Panel [place] See Note Adenovirus (Rapid PCR) Not Detected (Not Detect.) B.pert (TEM-PCR) Not Detected (Not Detect.) B.parapertussis DNA PCR Not Detected (Not Detect.) C. pneumoniae DNA (PCR) Not Detected (Not Detect.) Coronavirus OC43 (PCR) Not Detected (Not Detect.) Coronavirus HKU1 (PCR) Not Detected (Not Detect.) Coronavirus 229E (PCR) Not Detected (Not Detect.) Coronavirus NL63 (PCR) Not Detected (Not Detect.) Human Metapneumovir PCR Not Detected (Not Detect.) Influenza A (RT-PCR) Not Detected (Not Detect.) Influenza B (RT-PCR) Not Detected (Not Detect.) M. pneumoniae (PCR) Not Detected (Not Detect.) Parainfluenza 1 (PCR) Not Detected (Not Detect.) Parainfluenza 2 (PCR) Not Detected (Not Detect.) Parainfluenza 3 (PCR) Not Detected (Not Detect.) Parainfluenza 4 (PCR) Not Detected (Not Detect.) RSV (PCR) Not Detected (Not Detect.) Entero/Rhino (PCR) Detected A (Not Detect.) SARS-CoV-2 RNA (RT-PCR) Not Detected (Not Detect.) Imaging Data Chest x-ray: Attestation: I personally reviewed and interpreted this imaging study as follows: Radiologist's impression: FINDINGS: The cardiac and mediastinal contours are normal. The lungs are clear. There is no pleural effusion or pneumothorax. There are degenerative changes of the spine. There are surgical clips in the left hemidiaphragm in the region of the stomach. XR/XR chest 2V IMPRESSION: No evidence for acute disease in the chest.. ECG Data Attestation: I personally reviewed and interpreted this ECG as follows: ECG interpretation date: 11/05/20 ECG interpretation time: 13:42 Interpretation: Normal sinus rhythm With a ventricular rate of 78 with a normal [place] interval normal QRS duration with QT/QTC interval. No acute ischemic changes are noted. Critical Care Time Critical Care Time Critical Care Time: Yes Total Critical Care Time: 60 Attestation: I personally attest to this time spent taking care of the patient Discharge Plan Discharge Clinical Impression: Asthma exacerbation with COPD (chronic obstructive pulmonary disease), Acute viral syndrome, Low blood magnesium Patient Disposition: Home, Self-Care Instructions: COPD (Chronic Obstructive Pulmonary Disease) (ED), How to Use a Nebulizer (ED), Hypomagnesemia (ED), Bronchospasm (ED) Additional Instructions: I am placing you on steroids this can bring up your blood glucose levels since you have diabetes please adjust her insulin levels as needed. Prescriptions: New albuterol sulfate 0.63 mg/3 mL solution for nebulization 0.63 mg inhalation QID PRN (Reason: shortness of breath or wheezing) Qty: 75 RF: 0 azithromycin 250 mg tablet See Rx Instructions .ROUTE .COMPLEX Qty: 6 RF: 0 prednisone 20 mg tablet 60 mg PO DAILY 5 Days Qty: 15 RF: 0 codeine-guaifenesin [Guaifenesin AC] 10-100 mg/5 mL liquid 5 ml PO Q6H PRN (Reason: cold symptoms) Qty: 120 RF: 0 albuterol sulfate 90 mcg/actuation HFA aerosol inhaler 1 inh inhalation QID PRN (Reason: shortness of breath or wheezing) Qty: 8.5 RF: 0 No Action prednisone 20 mg tablet 40 mg PO DAILY Qty: 8 RF: 0 albuterol sulfate 2.5 mg /3 mL (0.083 %) solution for nebulization 2.5 mg inhalation Q4H PRN (Reason: shortness of breath or wheezing) Qty: 75 RF: 0 citalopram 40 mg tablet 1 tab PO QAM RF: 0 ketotifen fumarate 0.025 % (0.035 %) drops 1 drp ophthalmic (eye) BID RF: 0 acetaminophen 500 mg tablet 1 tab PO Q8H PRN (Reason: Headache) RF: 0 hydroxyzine HCl 25 mg tablet 1 tab PO BEDTIME PRN (Reason: itch) RF: 0 metformin 500 mg tablet extended release 24 hr 1 tab PO QPM RF: 0 cyclobenzaprine 5 mg tablet 1 tab PO BID PRN (Reason: Muscle Spasm) RF: 0 diclofenac sodium 75 mg tablet,delayed release (DR/EC) 75 mg PO BID PRN (Reason: Pain) RF: 0 cholecalciferol (vitamin D3) 25 mcg (1,000 unit) capsule 25 mcg PO DAILY Qty: 30 RF: 11 zolpidem 10 mg tablet 10 mg PO BEDTIME PRN (Reason: Insomnia) RF: 0 lorazepam 0.5 mg tablet 0.5 mg PO BID PRN (Reason: Anxiety) RF: 0 olopatadine 0.1 % drops 1 drp ophthalmic (eye) BID RF: 0 furosemide 40 mg tablet 40 mg PO DAILY RF: 0 epinephrine 0.3 mg/0.3 mL auto-injector 0.3 mg IM Q10M PRN (Reason: Anaphylaxis) RF: 0 ipratropium-albuterol 0.5 mg-3 mg(2.5 mg base)/3 mL solution for nebulization 3 ml inhalation Q6-8H PRN (Reason: Wheezing) RF: 0 tramadol 50 mg tablet 50 mg PO DAILY RF: 0 loperamide-simethicone 2-125 mg tablet 1 tab PO Q3H PRN (Reason: Diarrhea) RF: 0 pantoprazole 40 mg tablet,delayed release (DR/EC) 40 mg PO DAILY RF: 0 docusate sodium [Colace] 100 mg capsule 100 mg PO BID RF: 0 albuterol sulfate [ProAir HFA] 90 mcg/actuation HFA aerosol inhaler 2 puff inhalation Q6H PRN (Reason: Wheezing) RF: 0 montelukast 10 mg tablet 10 mg PO BEDTIME RF: 0 loratadine 10 mg capsule 10 mg PO DAILY RF: 0 fluticasone propionate [Flonase Allergy Relief] 50 mcg/actuation spray,suspension 1 spray intranasal DAILY RF: 0 atorvastatin 40 mg tablet 40 mg PO BEDTIME RF: 0 fluticasone propion-salmeterol [Advair Diskus] 250-50 mcg/dose blister with device 1 inh inhalation BID RF: 0 Referrals: Leelee Yanes MD [Primary Care Provider] - 2 days Print Language: Vietnamese
[2020-11-05 14:25] LABS: B Type Natriuretic Peptide 16 pg/mL (<100); Troponin-I High Sensitivity < 3.5 ng/L (<3.5-17.0)
[2020-11-05 14:27] LABS: Adenovirus PCR Not Detected (Not Detect.); Bordetella parapertussis PCR Not Detected (Not Detect.); Bordetella pertussis PCR Not Detected (Not Detect.); Chlamydia pneumoniae PCR Not Detected (Not Detect.); Coronavirus 229E PCR Not Detected (Not Detect.); Coronavirus HKU1 PCR Not Detected (Not Detect.); Coronavirus NL63 PCR Not Detected (Not Detect.); Coronavirus OC43 PCR Not Detected (Not Detect.); Human metapneumovirus PCR Not Detected (Not Detect.); Influenza A PCR Not Detected (Not Detect.); Influenza B PCR Not Detected (Not Detect.); Mycoplasma pneumoniae PCR Not Detected (Not Detect.); Parainfluenza 1 PCR Not Detected (Not Detect.); Parainfluenza 2 PCR Not Detected (Not Detect.); Parainfluenza 3 PCR Not Detected (Not Detect.); Parainfluenza 4 PCR Not Detected (Not Detect.); RSV PCR Not Detected (Not Detect.); SARS-CoV-2 PCR Not Detected (Not Detect.)
[2020-11-05 14:30] LABS: Alanine Aminotransferase 34 U/L (0-31); Albumin Level 4.1 g/dL (3.5-5.0); Alkaline Phosphatase 130 U/L (39-117); Anion Gap 13 (12-20); Aspartate Amino Transferase 18 U/L (5-31); Bilirubin Total 0.5 mg/dL (0.0-1.0); Blood Urea Nitrogen 19 mg/dL (9-16); Calcium 9.7 mg/dL (8.4-10.2); Carbon Dioxide 31 mmol/L (22-29); Chloride 102 mmol/L (96-108); Creatinine Clr Calc Pharmacy 57.3; Estimated Glomerular Filt Rate 48; Glucose Random 103 mg/dL (60-115); Magnesium 1.3 mg/dL (1.6-2.6); Potassium 3.3 mmol/L (3.3-5.1); Sodium 143 mmol/L (135-145); Total Protein 7.4 g/dL (6.5-8.0)
[2020-11-05 14:57] VITALS: PULSE 95; RESP 16
--- NOTE | 2020-11-05 15:00 | PHA.MEDREC ---
Pharmacy Consult ? Medication Reconciliation Pharmacy has completed the medication reconciliation.
[2020-11-05 15:21] LABS: Rhino/Enterovirus PCR Detected (Not Detect.)
[2020-11-05 15:28] VITALS: PULSE 67; O2SAT 95
== END 2020-11-05 16:21 | disposition home or self-care (01) ==
PROVIDERS: Physician Assistant Medical; Emergency Provider Emergency Medicine; PCP Internal Medicine
DX: J45.901 Unspecified asthma with (acute) exacerbation (principal); J44.9 Chronic obstructive pulmonary disease, unspecified; B34.9 Viral infection, unspecified; E83.42 Hypomagnesemia; E11.9 Type 2 diabetes mellitus without complications; I10 Essential (primary) hypertension; Z79.84 Long term (current) use of oral hypoglycemic drugs; Z79.899 Other long term (current) drug therapy; Z20.822 Contact with and (suspected) exposure to COVID-19
CPT/HCPCS: 36415; 71046; 80053; 83605; 83735; 83880; 84484; 85025; 85610; 87040; 87205; 87633; 93005; 94640; 96365; 96366; 96375; 99284; J2930; J3475

== ENCOUNTER 2020-11-10 06:10 | Day surgery (SDC) | payer MEDICAID, SELFPAY ==
[2020-11-04 14:35] VITALS: BMI 40.6
--- NOTE | 2020-11-09 10:32 | P.CONAN_ITS ---
Documented by User: Claudiaher Lucioney 11/09/20 10:38 HPI - Anesthesia Eval Consult details Narrative: 55yo F for Right Carpal Tunnel Release, middle and ring finger A1 pully release 11/05/20: Pt seen in ED with asthma exac. D/C home with Zpak and 5 days of prednisone Low Mg, will repeat DOS PMFSH Active Problems Active Problems: All Active Problems (Updated 11/06/20 @ 00:02 by Background Dagloon) GERD (gastroesophageal reflux disease) (Acute) Diabetes (Acute) Obesity (Acute) Vitamin D deficiency (Acute) Carpal tunnel syndrome of right wrist (Acute) Carpal tunnel syndrome of left wrist (Acute) Trigger finger, right middle finger (Acute) Trigger finger, right ring finger (Acute) Mallet deformity of right little finger (Acute) COPD (chronic obstructive pulmonary disease) (Acute) Allergic rhinitis (Acute) KAYLEE on CPAP (Acute) Obesity (BMI 30-39.9) (Acute) Hypertension (Acute) Hyperlipidemia (Acute) Arthritis (Acute) Asthma (Acute) Past Medical History Medical History Allergic rhinitis Arthritis Asthma Axillary hidradenitis suppurativa COPD (chronic obstructive pulmonary disease) COVID-19 vaccine administered Diabetes GERD (gastroesophageal reflux disease) Hyperlipidemia Hypertension Obesity (BMI 30-39.9) KAYLEE on CPAP Renal stones Family History Family History Mother No problems noted. Father No problems noted. Son No problems noted. Daughter No problems noted. Son No problems noted. Sister No problems noted. Sister No problems noted. Brother No problems noted. Brother No problems noted. Brother No problems noted. Brother No problems noted. Surgical History Surgical History H/O colonoscopy H/O hemicolectomy H/O lithotripsy H/O tubal ligation History of esophagogastroduodenoscopy (EGD) History of salpingoophorectomy Hx of cholecystectomy Hx of cystoscopy Hx of knee surgery Hx of total knee replacement S/P laparoscopic sleeve gastrectomy Social History Social History Alcohol intake: never Patient Tobacco Use Status: Never used Tobacco Use of substances other than those prescribed or required for medical reasons: No Have you been hit, kicked, punched, or otherwise hurt by someone within the past year? 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 Meds Allergies Allergy/AdvReac Type Severity Reaction Status Date / Time sulfamethoxazole Allergy Intermediate RASH Verified 11/10/20 06:57 [From Bactrim] Home Medications Medication Instructions Recorded Confirmed Last Taken Type albuterol sulfate 90 mcg/actuation 2 puff INHALATION Q6H PRN 02/27/20 11/05/20 Unknown History aerosol inhaler atorvastatin 40 mg tablet 40 mg PO BEDTIME 02/27/20 11/05/20 11/04/20 History docusate sodium 100 mg capsule 100 mg PO BID 02/27/20 11/05/20 11/05/20 History epinephrine 0.3 mg/0.3 mL 0.3 mg IM Q10M PRN 02/27/20 11/05/20 Unknown History injection, auto-injector fluticasone 250 mcg-salmeterol 50 1 inh INHALATION BID 02/27/20 11/05/20 11/05/20 History mcg/dose blistr powdr for inhalation fluticasone propionate 50 1 spray INTRANASAL DAILY 02/27/20 11/05/20 11/05/20 History mcg/actuation nasal spray,suspension furosemide 40 mg tablet 40 mg PO DAILY 02/27/20 11/05/20 11/05/20 History ipratropium 0.5 mg-albuterol 3 mg 3 ml INHALATION Q6-8H PRN 02/27/20 11/05/20 Unknown History (2.5 mg base)/3 mL nebulization soln loperamide-simethicone 2 mg-125 mg 1 tab PO Q3H PRN 02/27/20 11/05/20 Unknown History tablet loratadine 10 mg capsule 10 mg PO DAILY 02/27/20 11/05/20 11/05/20 History lorazepam 0.5 mg tablet 0.5 mg PO BID PRN 02/27/20 11/05/20 Unknown History montelukast 10 mg tablet 10 mg PO BEDTIME 02/27/20 11/05/20 11/04/20 History olopatadine 0.1 % eye drops 1 drp OPHTHALMIC (EYE) BID 02/27/20 11/05/20 11/05/20 History pantoprazole 40 mg tablet,delayed 40 mg PO DAILY 02/27/20 11/05/20 11/10/20 05:30 History release tramadol 50 mg tablet 50 mg PO DAILY 02/27/20 11/05/20 11/05/20 History zolpidem 10 mg tablet 10 mg PO BEDTIME PRN 02/27/20 11/05/20 11/04/20 History acetaminophen 1 tab PO Q8H PRN 11/05/20 11/05/20 Unknown History citalopram 1 tab PO QAM 11/05/20 11/05/20 11/05/20 History cyclobenzaprine 1 tab PO BID PRN 11/05/20 11/05/20 Unknown History diclofenac sodium 75 mg PO BID PRN 11/05/20 11/05/20 Unknown History hydroxyzine HCl 1 tab PO BEDTIME PRN 11/05/20 11/05/20 Unknown History ketotifen fumarate 1 drp OPHTHALMIC (EYE) BID 11/05/20 11/05/20 11/05/20 History metformin 1 tab PO QPM 11/05/20 11/05/20 11/04/20 History Exam Exam Date and Time: November 09, 2020 1032 Height,Weight and Vital Signs: Height 5 ft 2 in Weight 100.698 kg Pertinent Lab Results Pertinent Lab Results: Laboratory Tests 11/05/20 11/05/20 13:49 13:49 WBC 11.2 H Hgb 12.2 Hct 38.0 Plt Count 315 D Sodium 143 Potassium 3.3 Chloride 102 Carbon Dioxide 31 H BUN 19 H D Creatinine 1.17 Narrative Narrative: EKG 10/2020 Vent. Rate : 072 BPM Atrial Rate : 072 BPM P-R Int : 152 ms QRS Dur : 098 ms QT Int : 414 ms P-R-T Axes : 059 052 022 degrees QTc Int : 453 ms Normal sinus rhythm Normal ECG When compared with ECG of 30-OCT-2020 10:24, No significant change was found Assessment and Plan Assessment Anesthesia Assessment: Chart Reviewed Documented by User: Evaristo Diaz MD 11/10/20 08:07 [facility] Past Medical History Medical History Allergic rhinitis Arthritis Asthma Axillary hidradenitis suppurativa COPD (chronic obstructive pulmonary disease) COVID-19 vaccine administered Diabetes GERD (gastroesophageal reflux disease) Hyperlipidemia Hypertension Obesity (BMI 30-39.9) KAYLEE on CPAP Renal stones Family History Family History Mother No problems noted. Father No problems noted. Son No problems noted. Daughter No problems noted. Son No problems noted. Sister No problems noted. Sister No problems noted. Brother No problems noted. Brother No problems noted. Brother No problems noted. Brother No problems noted. Surgical History Surgical History H/O colonoscopy H/O hemicolectomy H/O lithotripsy H/O tubal ligation History of esophagogastroduodenoscopy (EGD) History of salpingoophorectomy Hx of cholecystectomy Hx of cystoscopy Hx of knee surgery Hx of total knee replacement S/P laparoscopic sleeve gastrectomy Social History Social History Alcohol intake: never Patient Tobacco Use Status: Never used Tobacco Use of substances other than those prescribed or required for medical reasons: No Have you been hit, kicked, punched, or otherwise hurt by someone within the past year? 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 Meds Allergies Allergy/AdvReac Type Severity Reaction Status Date / Time sulfamethoxazole Allergy Intermediate RASH Verified 11/10/20 06:57 [From Bactrim] Home Medications Medication Instructions Recorded Confirmed Last Taken Type albuterol sulfate 90 mcg/actuation 2 puff INHALATION Q6H PRN 02/27/20 11/05/20 Unknown History aerosol inhaler atorvastatin 40 mg tablet 40 mg PO BEDTIME 02/27/20 11/05/20 11/04/20 History docusate sodium 100 mg capsule 100 mg PO BID 02/27/20 11/05/20 11/05/20 History epinephrine 0.3 mg/0.3 mL 0.3 mg IM Q10M PRN 02/27/20 11/05/20 Unknown History injection, auto-injector fluticasone 250 mcg-salmeterol 50 1 inh INHALATION BID 02/27/20 11/05/20 11/05/20 History mcg/dose blistr powdr for inhalation fluticasone propionate 50 1 spray INTRANASAL DAILY 02/27/20 11/05/20 11/05/20 History mcg/actuation nasal spray,suspension furosemide 40 mg tablet 40 mg PO DAILY 02/27/20 11/05/20 11/05/20 History ipratropium 0.5 mg-albuterol 3 mg 3 ml INHALATION Q6-8H PRN 02/27/20 11/05/20 Unknown History (2.5 mg base)/3 mL nebulization soln loperamide-simethicone 2 mg-125 mg 1 tab PO Q3H PRN 02/27/20 11/05/20 Unknown History tablet loratadine 10 mg capsule 10 mg PO DAILY 02/27/20 11/05/20 11/05/20 History lorazepam 0.5 mg tablet 0.5 mg PO BID PRN 02/27/20 11/05/20 Unknown History montelukast 10 mg tablet 10 mg PO BEDTIME 02/27/20 11/05/20 11/04/20 History olopatadine 0.1 % eye drops 1 drp OPHTHALMIC (EYE) BID 02/27/20 11/05/20 11/05/20 History pantoprazole 40 mg tablet,delayed 40 mg PO DAILY 02/27/20 11/05/20 11/10/20 05:30 History release tramadol 50 mg tablet 50 mg PO DAILY 02/27/20 11/05/20 11/05/20 History zolpidem 10 mg tablet 10 mg PO BEDTIME PRN 02/27/20 11/05/20 11/04/20 History acetaminophen 1 tab PO Q8H PRN 11/05/20 11/05/20 Unknown History citalopram 1 tab PO QAM 11/05/20 11/05/20 11/05/20 History cyclobenzaprine 1 tab PO BID PRN 11/05/20 11/05/20 Unknown History diclofenac sodium 75 mg PO BID PRN 11/05/20 11/05/20 Unknown History hydroxyzine HCl 1 tab PO BEDTIME PRN 11/05/20 11/05/20 Unknown History ketotifen fumarate 1 drp OPHTHALMIC (EYE) BID 11/05/20 11/05/20 11/05/20 History metformin 1 tab PO QPM 11/05/20 11/05/20 11/04/20 History Exam Airway Mallampati Class: III TM Dist: >3cm Neck ROM: Full Lungs: wheeze Assessment and Plan Assessment Anesthesia Assessment: Anesthesia Plan Discussed and Chart Reviewed Final Anesthetic Review NPO: Yes ASA Class: III Final Preanesthetic Review: No Changes in Pt Med Stat, Meds/Allgs Chart Reviewed, Consent Obtained/Reviewed and Anes Risks/Benef Reviewed Patient Risk: High Procedure Risk: Low Anesthetic Plan Anesthetic Plan: GA Disposition: Standard PACU
[2020-11-10] VITALS (9 sets, daily range): BP systolic 111–144; BP diastolic 52–92; PULSE 61–78; RESP 16–20; TEMP 36.5–36.8; O2SAT 93–97
[2020-11-10 06:35] LABS: Glucose, Whole Blood 90 mg/dL (60-115)
[2020-11-10] MEDS: Lactated Ringers 1,000 ML 100 ML IVCONT (07:01)
[2020-11-10 07:21] LABS: Magnesium 1.4 mg/dL (1.6-2.6)
--- NOTE | 2020-11-10 07:51 | P.OP_ITS ---
Operative Note Operative Note Date of Service: 11/10/20 Narrative: Preop diagnosis: 1. Right Carpal tunnel syndrome 2. Right middle finger trigger finger 3. Right ring finger trigger finger Postop diagnosis: same Procedure: 1. right Carpal tunnel release 2. Right middle finger A1 soraya release 3. Right ring finger A1 soraya release Surgeon: Clari Galaviz MD Anesthesia: local block using 1% lidocaine with epinephrine Findings: Thickened transverse carpal ligament. EBL: Less than 5 mL Specimens: None Complications: None Disposition: Brought to recovery room in stable condition Plan: Follow-up for 7-10 days for wound check and suture removal Indications: The patient is 55 years old, with right carpal tunnel syndrome that has been unresponsive to nonoperative management. The risks and benefits of operative treatment including but not limited to risk of damage to blood vessels, nerves, tendons, infection, persistent pain, persistent symptoms, or possible need for additional surgery were discussed with the patient and the patient wishes to proceed with surgery. Procedure: Once consent was obtained the patient was brought back to the operating suite and placed on the operative table in supine position. perioperative antibiotics were administered and anesthesia performed by the anesthesia team. A tourniquet was applied to the proximal aspect of the right upper extremity and the limb was prepped and draped in a standard surgical fashion. Once assured that we had a good block, a 1.5 cm oblique incision was made centered over the A1 soraya of the Right middle finger . The incision was made through the skin to the subcutaneous tissues using a #15 blade. Careful dissection was made down to the level of the A1 soraya using tenotomy scissors, with care being taken to protect the nearby neurovascular structures. A longitudinal incision was made in the A1 soraya 1st using a #15 blade, then using tenotomy scissors under direct visualization. The A1 soraya was noted to be thickened. Following our A1 soraya release, we no longer saw any locking or catching of the digit with flexion and extension. Once assured that we had a good block, a 1.5 cm oblique incision was made centered over the A1 soraya of the right ring finger . The incision was made through the skin to the subcutaneous tissues using a #15 blade. Careful dissection was made down to the level of the A1 soraya using tenotomy scissors, with care being taken to protect the nearby neurovascular structures. A longitudinal incision was made in the A1 soraya 1st using a #15 blade, then using tenotomy scissors under direct visualization. The A1 soraya was noted to be thickened. Following our A1 soraya release, we no longer saw any locking or catching of the digit with flexion and extension. Once assured that we had a good block, a 1.5 cm longitudinal incision was made centered over the right carpal tunnel. The incision was made through the skin to the subcutaneous tissues using a #15 blade. Dissection was made down to the level of the transverse carpal ligament with care being taken to protect the palmar cutaneous nerve. Once the transverse carpal ligament was clearly visualized, a longitudinal incision was made in the transverse carpal ligament 1st using a #15 blade, then using tenotomy scissors under direct visualization. Care was taken to look for and protect the motor branch of the median nerve when seen in this area. Once satisfied with our carpal tunnel release and trigger finger releases the wounds were copiously irrigated with normal saline and hemostasis was obtained with a brief period of local pressure. The skin edges were reapproximated with some 5.0 nylon suture material and a sterile dressing was applied. The patient appears to have tolerated the procedure well and with no complicatio ns. All digits were well vascularized at the conclusion of the case.
--- NOTE | 2020-11-10 07:51 | MHC.SHP ---
Pre-Procedural Eval Section A Date of Service: 11/10/20 Section B Chief Complaint: carpal tunnel,trigger fingers Allergies: Allergies Allergy/AdvReac Type Severity Reaction Status Date / Time sulfamethoxazole Allergy Intermediate RASH Verified 11/10/20 06:57 [From Bactrim] Plan I have reviewed the history and physical and performed a pertinent physical examination on my patient. No changes have occurred unless specified.
[2020-11-10] MEDS: oxyCODONE HCl Immed Release 5 MG TABLET PO (09:29)
[2020-11-10] MEDS: Acetaminophen 325 MG TABLET 650 MG PO (09:29)
== END 2020-11-10 11:30 | disposition home or self-care (01) ==
PROVIDERS: Nurse Practitioner; PCP Internal Medicine; Visit Provider Orthopaedic Surgery
PROC: (CPT 64721; principal; 2020-11-10 07:30)
DX: G56.01 Carpal tunnel syndrome, right upper limb (principal); M65.331 Trigger finger, right middle finger; M65.341 Trigger finger, right ring finger; E11.9 Type 2 diabetes mellitus without complications; I10 Essential (primary) hypertension; E55.9 Vitamin D deficiency, unspecified; J44.9 Chronic obstructive pulmonary disease, unspecified; G47.33 Obstructive sleep apnea (adult) (pediatric); Z99.89 Dependence on other enabling machines and devices; Z79.84 Long term (current) use of oral hypoglycemic drugs; Z79.899 Other long term (current) drug therapy; Z79.51 Long term (current) use of inhaled steroids; Z88.2 Allergy status to sulfonamides
CPT/HCPCS: 64721; 26055 ×2; 36415; 82947; 83735; J0690; J1100; J1170; J2250; J2405; J2765; J3010

== ENCOUNTER 2020-11-18 12:35 | Outpatient (REF) | payer MEDICAID, SELFPAY ==
--- NOTE | ~2020-11-18 | US_ITS ---
EXAMINATION: US RETROPERITONEAL LIMITED (RENAL ONLY) CLINICAL INFORMATION: Calculus of kidney. COMPARISON: Renals only ultrasound dated 11/12/2019 and 11/05/2018. CT abdomen and pelvis with intravenous contrast dated 11/01/2019. KUB dated 01/03/2018 and 05/17/2017. TECHNIQUE: Real-time imaging of the kidneys. FINDINGS: RIGHT KIDNEY: 11.4 x 5.5 x 5.1 cm (SAG x AP x TRV). The kidney is normal in size, contour, and echogenicity. Renal cortical thickness is normal. No calculi or focal parenchymal lesions. No hydronephrosis. LEFT KIDNEY: 10.0 x 5.7 x 4.8 cm (SAG x AP x TRV). The kidney is normal in size, contour, and echogenicity. Renal cortical thickness is normal. No calculi or focal parenchymal lesions. No hydronephrosis. US/US renal BI IMPRESSION: Normal renal ultrasound. No stone seen.
== END 2020-11-18 12:36 | disposition home or self-care (01) ==
LOC: HO.HMGCX 12:35
PROVIDERS: Visit Provider Urology
DX: N20.0 Calculus of kidney (principal)
CPT/HCPCS: 76775

== ENCOUNTER → 2020-11-23 13:36 | Outpatient (BNVA) | payer MEDICAID, SELFPAY | PROVIDERS: Visit Provider Orthopaedic Surgery | DX: Z48.89 Encounter for other specified surgical aftercare (principal); Z87.39 Personal history of other diseases of the musculoskeletal system and connective tissue | CPT/HCPCS: 99212 ==

== ENCOUNTER → 2020-11-27 08:47 | Outpatient (BNVA) | payer MEDICAID, SELFPAY | PROVIDERS: Visit Provider Urology | DX: Z87.442 Personal history of urinary calculi (principal) | CPT/HCPCS: 99212 ==

== ENCOUNTER → 2020-12-31 08:48 | Outpatient (BNVA) | payer MEDICAID, SELFPAY | PROVIDERS: Visit Provider Orthopaedic Surgery | DX: M65.331 Trigger finger, right middle finger (principal); M65.341 Trigger finger, right ring finger; G56.03 Carpal tunnel syndrome, bilateral upper limbs | CPT/HCPCS: 99212 ==

== ENCOUNTER → 2021-01-22 13:03 | Outpatient (BNVA) | payer MEDICAID, SELFPAY | PROVIDERS: Visit Provider Physician Assistant Surgical ==

== ENCOUNTER 2021-01-23 08:12 | Outpatient (REF) | payer MEDICAID, SELFPAY ==
[2021-01-23 09:00] LABS: MANUAL DIFF FLAG NO
[2021-01-23 09:04] LABS: Basophils Percent Auto 0.3 % (0-2); Eosinophils Absolute Auto 0.1 X10*3/uL (0.0-0.4); Eosinophils Percent Auto 1.2 % (0-4); Hematocrit 37.2 % (37-47); Hemoglobin 11.9 g/dl (12.0-16.0); Imm Gran Abs Auto 0.01 X10*3/uL (0.00-0.03); Imm Gran Pct Auto 0.2 % (0.0-0.4); Lymphocytes Absolute Auto 2.1 X10*3/uL (1.2-4.9); Lymphocytes Percent Auto 36.2 % (20-40); Mean Corpuscular Hemoglobin 26.9 pg (27.0-33.0); Mean Corpuscular Volume 84.2 fL (80-98); Mean Platelet Volume 11.2 fL (9.4-12.3); Monocytes Absolute Auto 0.5 X10*3/uL (0.1-1.2); Monocytes Percent Auto 8.3 % (2-11); Neutrophils Absolute Auto 3.1 X10*3/uL (2.0-8.3); Neutrophils Percent Auto 53.8 % (45-73); Platelet Count 318 X10*3/uL (160-400); Red Blood Count 4.42 X10*6/uL (4.20-5.50); White Blood Count 5.8 X10*3/uL (4.8-10.8)
[2021-01-23 09:16] LABS: Estimated Average Glucose 120 mg/dL; Hemoglobin A1c % 5.8 %
[2021-01-23 09:22] LABS: Alanine Aminotransferase 22 U/L (0-31); Albumin Level 3.9 g/dL (3.5-5.0); Alkaline Phosphatase 113 U/L (39-117); Anion Gap 14 (12-20); Aspartate Amino Transferase 20 U/L (5-31); Bilirubin Total 0.4 mg/dL (0.0-1.0); Blood Urea Nitrogen 12 mg/dL (9-16); C Reactive Protein 0.46 mg/dL (< or = 0.50); Calcium 9.3 mg/dL (8.4-10.2); Carbon Dioxide 27 mmol/L (22-29); Chloride 105 mmol/L (96-108); Cholesterol 165 mg/dL; Estimated Glomerular Filt Rate > 60; Glucose Random 101 mg/dL (60-115); HDL Cholesterol 36 mg/dL; Iron 51 mcg/dL (30-160); LDL Cholesterol Calculated 86 mg/dl; Percent Iron Saturation 15 % (15-50); Potassium 3.8 mmol/L (3.3-5.1); Sodium 142 mmol/L (135-145); Total Iron Binding Capacity 330 mcg/dL (228-428); Triglycerides 216 mg/dL; Unsaturated Iron Binding 279 ug/dL
[2021-01-23 09:43] LABS: Ferritin 27 ng/mL (10-250); TSH reflex Free T4 2.36 uIU/mL (0.32-4.0); Vitamin D 25-OH Total 31.7 ng/mL (>30)
[2021-01-25 09:48] LABS: Folate 13.6 ng/mL (> or = 4.0); Vitamin B12 243 pg/mL (200-900)
[2021-01-26 01:12] LABS: Insulin Level Total 7.1 uIU/mL
[2021-01-26 08:47] LABS: Calcium (PTHI) 9.3 mg/dL (8.6-10.4); PTHI 82 pg/mL (14-64)
[2021-01-26 23:06] LABS: Zinc 78 mcg/dL (60-130)
[2021-01-29 00:01] LABS: Vitamin A 60 mcg/dL (38-98)
[2021-01-29 09:15] LABS: Vitamin B1 10 nmol/L (8-30)
== END 2021-01-23 08:13 | disposition home or self-care (01) ==
LOC: HO.LAB 08:12
PROVIDERS: PCP Internal Medicine; Visit Provider Physician Assistant Surgical
DX: E66.9 Obesity, unspecified (principal); K21.9 Gastro-esophageal reflux disease without esophagitis
CPT/HCPCS: 36415; 80053; 80061; 82306; 82607; 82728; 82746; 83036; 83525; 83540; 83970; 84425; 84443; 84590; 84630; 85025; 86140

== ENCOUNTER → 2021-02-19 08:09 | Outpatient (BNVA) | payer MEDICAID, SELFPAY | PROVIDERS: Visit Provider Physician Assistant Surgical | DX: K21.9 Gastro-esophageal reflux disease without esophagitis (principal); E66.9 Obesity, unspecified ==

== ENCOUNTER → 2021-03-10 12:49 | Outpatient (BNVA) | payer MEDICAID, SELFPAY | PROVIDERS: PCP Internal Medicine | DX: N20.0 Calculus of kidney (principal); E11.9 Type 2 diabetes mellitus without complications; E78.5 Hyperlipidemia, unspecified; I10 Essential (primary) hypertension; K21.9 Gastro-esophageal reflux disease without esophagitis; Z88.2 Allergy status to sulfonamides; Z79.84 Long term (current) use of oral hypoglycemic drugs | CPT/HCPCS: 99212 ==

== ENCOUNTER → 2021-03-17 10:47 | Outpatient (BNVA) | payer MEDICAID, SELFPAY | PROVIDERS: PCP Internal Medicine; Visit Provider Internal Medicine | DX: J30.9 Allergic rhinitis, unspecified (principal); J44.9 Chronic obstructive pulmonary disease, unspecified; G47.33 Obstructive sleep apnea (adult) (pediatric); E66.9 Obesity, unspecified; Z99.89 Dependence on other enabling machines and devices | CPT/HCPCS: 99212 ==

== ENCOUNTER 2021-04-15 11:13 | Outpatient (REF) | payer MEDICAID, SELFPAY ==
--- NOTE | ~2021-04-15 | MM_ITS ---
EXAMINATION: MM SCREENING DIGITAL BREAST TOMOSYNTHESIS, BILATERAL CLINICAL INFORMATION: Screening. Asymptomatic. The lifetime risk of breast cancer based on the Tyrer-Cuzick Model is 5.6%. COMPARISON: Mammography: April 14, 2020 and studies dating back to January 16, 2014 TECHNIQUE: Digital breast tomosynthesis is performed in both the craniocaudal and mediolateral oblique views along with computer-aided detection (CAD). Synthesized 2D images are generated from the tomosynthesis. FINDINGS: The breasts are almost entirely fatty (ACR BI-RADS breast composition Category a). There are no significant masses, abnormal calcifications, or other abnormalities. MM/MM tomosynthesis screening BI IMPRESSION: There are no significant changes from prior study. ASSESSMENT: BI-RADS 1: Negative RECOMMENDATION: Routine annual mammography screening. This patient's information was entered into a reminder system with a target due date for their next mammogram.
== END 2021-04-15 11:14 | disposition home or self-care (01) ==
LOC: HO.MAMMO 11:13
PROVIDERS: Visit Provider Internal Medicine
DX: Z12.31 Encounter for screening mammogram for malignant neoplasm of breast (principal)
CPT/HCPCS: 77063; 77067

== ENCOUNTER 2021-04-20 11:30 | Outpatient (RCR) | payer MEDICAID, SELFPAY ==
--- NOTE | 2021-04-20 12:19 | MHC.OT.DC ---
[address] [phone] F: [phone] Occupational Therapy Discharge Note Provider: Clari Galaviz Diagnosis: Right CTR , Right trigger finger release D3 and D4 Left CTS, LEFT trigger finger D3 and D4 Date of Surgery: 11/10/20 Date of Evaluation: 03/09/21 Date of Discharge: 04/20/21 Treatments to Date: 8 Cancellations to Date: 2 No Shows to Date: 1 Discharge Status: Achieved Goals Independent with HEP Discharge Summary: Co right hand and wrist painfree during the day, except for right small finger old Mallet injury with worsening OA jt pain. Report of right hand pain varies from none to frequent Reports occassional right hand spasm with hand use , none noted with ex or functional activities here in OT Con't c/o left hand CTS sx and right shoulder pain Functional limitations are primarily due to right shoulder pain. Pt is aware of jt protection techniques and AD for opening jars..etc. Goals considered met. May benefit from PT eval for shoulder pain Electronically Signed By: Larissa Jones OT, CHT , CLT Reviewed/agree with student documentation: N/A Therapist: Please Sign and return to therapist, thank you for your referral.
== END 2021-04-20 12:19 | disposition home or self-care (01) ==
LOC: HO.OT 11:30
PROVIDERS: PCP Internal Medicine; Visit Provider Orthopaedic Surgery
DX: G56.03 Carpal tunnel syndrome, bilateral upper limbs (principal); M65.331 Trigger finger, right middle finger; M65.341 Trigger finger, right ring finger
CPT/HCPCS: 29130; 97035; 97110; 97167; 97530; 97760

== ENCOUNTER 2021-06-28 14:40 | Outpatient (REF) | payer MEDICAID, SELFPAY ==
--- NOTE | ~2021-06-28 | US_ITS ---
EXAMINATION: US RETROPERITONEAL LIMITED (RENAL ONLY) CLINICAL INFORMATION: Calculus of kidney. COMPARISON: Renal ultrasound 11/18/2020 and 11/12/2019. CT abdomen and pelvis with contrast 11/01/2019. XR abdomen KUB 01/03/2018 and 05/17/2017. TECHNIQUE: Real-time imaging of the kidneys. FINDINGS: RIGHT KIDNEY: 11.4 x 4.9 x 4.0 cm (SAG x AP x TRV). The kidney is normal in size, contour, and echogenicity. Renal cortical thickness is normal. No calculi or focal parenchymal lesions. No hydronephrosis. LEFT KIDNEY: 10.0 x 5.7 x 5.3 cm (SAG x AP x TRV). The kidney is normal in size, contour, and echogenicity. Renal cortical thickness is normal. No calculi or focal parenchymal lesions. No hydronephrosis. US/US renal BI IMPRESSION: Normal renal ultrasound.
== END 2021-06-28 14:41 | disposition home or self-care (01) ==
LOC: HO.US 14:40
PROVIDERS: PCP Internal Medicine
DX: N20.0 Calculus of kidney (principal)
CPT/HCPCS: 76775

== ENCOUNTER 2021-07-05 11:26 | Outpatient (REF) | payer MEDICAID, SELFPAY ==
--- NOTE | ~2021-07-05 | XR_ITS ---
EXAMINATION: XR chest 2V CLINICAL INFORMATION: Reason for Exam COUGH COMPARISON: Chest radiograph 11/05/2020 TECHNIQUE: 2 views of the chest XR/XR chest 2V FINDINGS/IMPRESSION: Clear lungs. No pneumothorax. No pleural effusion. Normal cardiomediastinal silhouette. Upper abdominal surgical clips.
== END 2021-07-05 11:27 | disposition home or self-care (01) ==
LOC: HO.XRAY 11:26
PROVIDERS: Absent Provider Internal Medicine; PCP Internal Medicine; Visit Provider Emergency Medicine
DX: R05.9 Cough, unspecified (principal)
CPT/HCPCS: 71046

== ENCOUNTER 2021-08-04 11:23 | Outpatient (REF) | payer MEDICAID, SELFPAY ==
--- NOTE | ~2021-08-04 | XR_ITS ---
EXAMINATION: XR ANKLE, LEFT CLINICAL INFORMATION: Lateral left ankle pain status post fall. COMPARISON: None TECHNIQUE: AP, lateral, and mortise views of the left ankle. FINDINGS: The ankle joint and mortise are intact. The tibiotalar joint space is unremarkable. The tarsal bones are normally aligned. Very small plantar and retrocalcaneal spurs are seen. Mild linear calcifications are seen in the distal Achilles tendon. There is mild soft tissue swelling. XR/XR ankle LT min 3V IMPRESSION: 1. Mild soft tissue swelling without overt acute fracture. 2. Very small degenerative calcaneal spurs and mild Achilles enthesopathy.
--- NOTE | ~2021-08-04 | US_ITS ---
EXAMINATION: US VENOUS ULTRASOUND WITH DOPPLER LOWER EXTREMITY, LEFT CLINICAL INFORMATION: Left lower extremity swelling for 9 days, no injury. COMPARISON: None TECHNIQUE: Ultrasound of the deep veins is performed from the hip to the calf with compression sonography and color and pulse Doppler assessment. Spectral analysis with color-flow imaging is performed. FINDINGS: There is normal venous compression and respiratory variation and augmented flow. The visualized common femoral vein, superficial femoral vein, profunda femoral vein, popliteal vein, and the trifurcation region shows no evidence of deep venous thrombosis. There is no significant popliteal fossa cyst. If the patient's symptoms persist, followup ultrasound in 5 days 7 days might be of value to exclude proximal propagation from a non-visualized calf vein. US/US venous duplex LE LT IMPRESSION: No DVT demonstrated in the left lower extremity.
== END 2021-08-04 11:24 | disposition home or self-care (01) ==
LOC: HO.XRAY 11:23
PROVIDERS: Absent Provider Internal Medicine; PCP Internal Medicine; Visit Provider Emergency Medicine
DX: M25.472 Effusion, left ankle (principal); M25.572 Pain in left ankle and joints of left foot
CPT/HCPCS: 73610; 93971

== ENCOUNTER → 2021-09-14 12:44 | Outpatient (BNVA) | payer MEDICAID, SELFPAY | PROVIDERS: PCP Internal Medicine; Visit Provider Internal Medicine | DX: G47.33 Obstructive sleep apnea (adult) (pediatric) (principal); G47.10 Hypersomnia, unspecified; J44.9 Chronic obstructive pulmonary disease, unspecified; E66.01 Morbid (severe) obesity due to excess calories; Z68.41 Body mass index [BMI] 40.0-44.9, adult | CPT/HCPCS: 99212 ==

== ENCOUNTER 2021-10-25 07:14 | Outpatient (REF) | payer MEDICAID, SELFPAY ==
--- NOTE | ~2021-10-25 | XR_ITS ---
EXAMINATION: BILATERAL KNEE X-RAY CLINICAL INFORMATION: Pain COMPARISON: Previous x-rays from 2019 and 2020 TECHNIQUE: AP lateral and sunrise view of both knees FINDINGS: Right: There is a 3 component right knee replacement in satisfactory position. No fracture or dislocation. There is lucency adjacent to the patellar component questionable for evidence of loosening. There is no joint effusion. Left: Bone alignment is normal. No fracture or dislocation is seen. There is tricompartment arthritis. There is no significant joint effusion. XR/XR knee RT 2V IMPRESSION: Right knee replacement. Lucency adjacent to the patellar component questionable for evidence of loosening. Left knee: Tricompartment arthritis.
--- NOTE | ~2021-10-25 | XR_ITS ---
EXAMINATION: BILATERAL KNEE X-RAY CLINICAL INFORMATION: Pain COMPARISON: Previous x-rays from 2019 and 2020 TECHNIQUE: AP lateral and sunrise view of both knees FINDINGS: Right: There is a 3 component right knee replacement in satisfactory position. No fracture or dislocation. There is lucency adjacent to the patellar component questionable for evidence of loosening. There is no joint effusion. Left: Bone alignment is normal. No fracture or dislocation is seen. There is tricompartment arthritis. There is no significant joint effusion. XR/XR knee LT 2V IMPRESSION: Right knee replacement. Lucency adjacent to the patellar component questionable for evidence of loosening. Left knee: Tricompartment arthritis.
--- NOTE | ~2021-10-25 | XR_ITS ---
EXAMINATION: BILATERAL KNEE X-RAY CLINICAL INFORMATION: Pain COMPARISON: Previous x-rays from 2019 and 2020 TECHNIQUE: AP lateral and sunrise view of both knees FINDINGS: Right: There is a 3 component right knee replacement in satisfactory position. No fracture or dislocation. There is lucency adjacent to the patellar component questionable for evidence of loosening. There is no joint effusion. Left: Bone alignment is normal. No fracture or dislocation is seen. There is tricompartment arthritis. There is no significant joint effusion. XR/XR knee standing BI IMPRESSION: Right knee replacement. Lucency adjacent to the patellar component questionable for evidence of loosening. Left knee: Tricompartment arthritis.
== END 2021-10-25 07:15 | disposition home or self-care (01) ==
LOC: HO.HOSX 07:14
PROVIDERS: Visit Provider Physician Assistant
DX: M17.12 Unilateral primary osteoarthritis, left knee (principal)
CPT/HCPCS: 20610; 73560; 73565; 99202; J1040

== ENCOUNTER → 2021-10-28 09:42 | Outpatient (REF) | payer MEDICAID, SELFPAY | LOC: HO.SL 09:42 | PROVIDERS: PCP Internal Medicine; Visit Provider Internal Medicine | DX: Z13.89 Encounter for screening for other disorder (principal) ==

== ENCOUNTER → 2021-11-18 09:51 | Outpatient (REF) | payer MEDICAID, SELFPAY | LOC: HO.SL 09:51 | PROVIDERS: PCP Internal Medicine; Visit Provider Internal Medicine | DX: G47.33 Obstructive sleep apnea (adult) (pediatric) (principal); G47.10 Hypersomnia, unspecified; E66.01 Morbid (severe) obesity due to excess calories; Z68.41 Body mass index [BMI] 40.0-44.9, adult | CPT/HCPCS: 95806 ==

== ENCOUNTER → 2021-12-20 14:38 | Outpatient (BNVA) | payer MEDICAID, SELFPAY | PROVIDERS: PCP Internal Medicine; Visit Provider Internal Medicine | DX: J44.9 Chronic obstructive pulmonary disease, unspecified (principal); J30.9 Allergic rhinitis, unspecified; G47.33 Obstructive sleep apnea (adult) (pediatric); E66.01 Morbid (severe) obesity due to excess calories; Z68.41 Body mass index [BMI] 40.0-44.9, adult; Z99.89 Dependence on other enabling machines and devices; Z79.899 Other long term (current) drug therapy | CPT/HCPCS: 99212 ==

== ENCOUNTER 2022-02-15 12:13 | Outpatient (REF) | payer MEDICAID, SELFPAY ==
--- NOTE | ~2022-02-15 | US_ITS ---
EXAMINATION: US RETROPERITONEAL LIMITED (RENAL ONLY) CLINICAL INFORMATION: Calculus of kidney. COMPARISON: Renal ultrasound 06/28/2021 and 11/18/2020. CT abdomen and pelvis 11/01/2019. X-ray abdomen KUB 01/03/2018. TECHNIQUE: Real-time imaging of the kidneys FINDINGS: RIGHT KIDNEY: 10.3 x 4.6 x 4.0 cm (SAG x AP x TRV). The kidney is normal in size, contour, and echogenicity. Renal cortical thickness is normal. No calculi or focal parenchymal lesions. No hydronephrosis. LEFT KIDNEY: 10.0 x 6.4 x 4.8 cm (SAG x AP x TRV). The kidney is normal in size, contour, and echogenicity. Renal cortical thickness is normal. No calculi or focal parenchymal lesions. No hydronephrosis. US/US renal BI IMPRESSION: Unremarkable renal ultrasound.
== END 2022-02-15 12:14 | disposition home or self-care (01) ==
LOC: HO.US 12:13
DX: N20.0 Calculus of kidney (principal)
CPT/HCPCS: 76775

== ENCOUNTER → 2022-03-08 13:21 | Outpatient (BNVA) | payer MEDICAID, SELFPAY | PROVIDERS: PCP Internal Medicine; Referring Provider Internal Medicine; Visit Provider Physician Assistant Surgical | DX: E66.01 Morbid (severe) obesity due to excess calories (principal); Z90.3 Acquired absence of stomach [part of]; Z68.42 Body mass index [BMI] 45.0-49.9, adult | CPT/HCPCS: 99212 ==

== ENCOUNTER 2022-03-09 08:29 | Outpatient (REF) | payer MEDICAID, SELFPAY ==
[2022-03-09 08:46] LABS: MANUAL DIFF FLAG NO
[2022-03-09 09:12] LABS: Basophils Percent Auto 0.3 % (0-2); Eosinophils Absolute Auto 0.1 X10*3/uL (0.0-0.4); Eosinophils Percent Auto 1.4 % (0-4); Hematocrit 37.5 % (37.0-47.0); Hemoglobin 11.6 g/dl (12.0-16.0); Imm Gran Abs Auto 0.02 X10*3/uL (0.00-0.03); Imm Gran Pct Auto 0.3 % (0.0-0.4); Lymphocytes Absolute Auto 2.1 X10*3/uL (1.2-4.9); Lymphocytes Percent Auto 31.8 % (20-40); Mean Corpuscular HGB Conc 30.9 g/dl (31.0-35.0); Mean Corpuscular Hemoglobin 26.3 pg (27.0-33.0); Monocytes Absolute Auto 0.7 X10*3/uL (0.1-1.2); Monocytes Percent Auto 10.3 % (2-11); Neutrophils Absolute Auto 3.6 x10*3/uL (2.0-8.3); Neutrophils Percent Auto 55.9 % (45-73); Platelet Count 326 X10*3/uL (160-400); Red Blood Count 4.41 X10*6/uL (4.20-5.50); Red Cell Distribution Width 14.3 % (11.0-16.0); White Blood Count 6.5 X10*3/uL (4.8-10.8)
[2022-03-09 09:14] LABS: Estimated Average Glucose 120 mg/dL; Hemoglobin A1c % 5.8 %
[2022-03-09 09:41] LABS: Alanine Aminotransferase 24 U/L (0-31); Albumin Level 3.9 g/dL (3.5-5.0); Alkaline Phosphatase 111 U/L (39-117); Anion Gap 16 (12-20); Aspartate Amino Transferase 22 U/L (5-31); Bilirubin Total 0.5 mg/dL (0.0-1.0); Blood Urea Nitrogen 10 mg/dL (9-16); C Reactive Protein 0.95 mg/dL (< or = 0.50); Calcium 9.5 mg/dL (8.4-10.2); Carbon Dioxide 28 mmol/L (22-29); Chloride 105 mmol/L (96-108); Cholesterol 167 mg/dL; Estimated Glomerular Filt Rate > 60; Glucose Random 102 mg/dL (60-115); HDL Cholesterol 38 mg/dL; Iron 63 mcg/dL (30-160); LDL Cholesterol Calculated 93 mg/dl; Percent Iron Saturation 18 % (15-50); Potassium 4.1 mmol/L (3.3-5.1); Sodium 145 mmol/L (135-145); Total Iron Binding Capacity 353 mcg/dL (228-428); Total Protein 6.9 g/dL (6.5-8.0); Triglycerides 183 mg/dL; Unsaturated Iron Binding 290 ug/dL
[2022-03-09 09:52] LABS: Ferritin 16 ng/mL (10-250); Insulin 18 uU/mL (2-29); TSH reflex Free T4 1.38 uIU/mL (0.32-4.0); Vitamin D 25-OH Total 28.2 ng/mL (>30)
[2022-03-09 10:10] LABS: Vitamin B12 177 pg/mL (200-900)
[2022-03-10 11:12] LABS: Calcium (PTHI) 9.5 mg/dL (8.6-10.4); PTHI 92 pg/mL (16-77)
[2022-03-12 20:12] LABS: Zinc 57 mcg/dL (60-130)
[2022-03-14 06:16] LABS: Vitamin B1 7 nmol/L (8-30)
[2022-03-15 13:50] LABS: Vitamin A 74 mcg/dL (38-98)
== END 2022-03-09 08:30 | disposition home or self-care (01) ==
LOC: HO.LAB 08:29
PROVIDERS: PCP Internal Medicine; Visit Provider Physician Assistant Surgical
DX: Z90.3 Acquired absence of stomach [part of] (principal)
CPT/HCPCS: 36415; 80053; 80061; 82306; 82607; 82728; 82746; 83036; 83525; 83540; 83970; 84425; 84443; 84590; 84630; 85025; 86140

== ENCOUNTER 2022-04-08 10:01 | Emergency (ER) | payer MEDICAID, SELFPAY ==
--- NOTE | ~2022-04-08 | XR_ITS ---
EXAMINATION: XR LUMBOSACRAL SPINE CLINICAL INFORMATION: Atraumatic low back pain. COMPARISON: Lumbar spine radiographs dated 08/26/2019. TECHNIQUE: Three views of the lumbosacral spine. FINDINGS: There is generalized osteopenia. Normal lumbar lordosis and spinal alignment is seen. Mild multilevel degenerative changes. No acute abnormality. Multiple surgical clips overlie the upper abdomen. XR/XR lumbar spine 2-3V IMPRESSION: Generalized osteopenia and mild multilevel degenerative changes without acute abnormality.
--- NOTE | ~2022-04-08 | US_ITS ---
EXAMINATION: US VENOUS ULTRASOUND WITH DOPPLER LOWER EXTREMITY, BILATERAL CLINICAL INFORMATION: Bilateral lower extremity edema. COMPARISON: None TECHNIQUE: Ultrasound of the deep veins is performed from the hip to the calf with compression sonography and color and pulse Doppler assessment. Spectral analysis with color-flow imaging is performed. FINDINGS: RIGHT: There is normal venous compression and respiratory variation and augmented flow. The visualized common femoral vein, superficial femoral vein, profunda femoral vein, popliteal vein, and the trifurcation region shows no evidence of deep venous thrombosis. There is no significant popliteal fossa cyst. LEFT: There is normal venous compression and respiratory variation and augmented flow. The visualized common femoral vein, superficial femoral vein, profunda femoral vein, popliteal vein, and the trifurcation region shows no evidence of deep venous thrombosis. There is no significant popliteal fossa cyst. If the patient's symptoms persist, followup ultrasound in 5 days 7 days might be of value to exclude proximal propagation from a non-visualized calf vein. US/US venous duplex LE BI IMPRESSION: No DVT demonstrated in the bilateral lower extremities.
[2022-04-08 10:06] VITALS: BP 156/95; PULSE 92; RESP 20; TEMP 36.1; O2SAT 99; BMI 41.8
[2022-04-08 10:25] VITALS: BP 135/79; PULSE 88; RESP 18; TEMP 36; O2SAT 96
[2022-04-08] MEDS: NaPROXEN 500 MG TABLET PO (11:29)
[2022-04-08] MEDS: Cyclobenzaprine HCl 10 MG TABLET PO (11:29)
[2022-04-08 11:36] LABS: Glucose, Whole Blood 114 mg/dL (60-115)
--- NOTE | 2022-04-08 12:50 | ED_ITS ---
HPI - Back Pain/Injury General Chief Complaint: Extremity Problem Stated Complaint: Low Back Pain No Injury Time Seen by Provider: 04/08/22 10:23 Source: patient and family Mode of arrival: ambulatory Limitations: language barrier ( Armenian-speaking) History of Present Illness HPI Narrative: 56-year-old female with a past medical history of GERD, renal stones, diabetes, obesity, vitamin-D deficiency, COPD, obstructive sleep apnea on CPAP, hypertension, hyperlipidemia, asthma, arthritis with a past surgical procedure of sleeve gastrectomy who is presenting to the ER with complaints of lower back pain radiating down to her right leg that has been present for the past few weeks worse this week. She reports that she feels like both her legs are swollen and she is having calf pain to both legs. She is concern for possible blood clot due to she recently traveled to [place] March and the trip was 8 hours long due to they did not stay over there they came back same day. She denies any dizziness, headaches, neck pain /stiffness, trouble swallowing or breathing, chest pain or shortness of breath, dyspnea on exertion, orthopnea, palpitations, paresthesias, abdominal pain, flank pain, dysuria, hematuria, abnormal vaginal discharge, black or bloody stools, rashes, recent falls or trauma, IV drug use, urinary or bowel incontinence or retention, saddle anesthesias, history of DVT or PE, hypercoagulation disorder, recent surgery or any other symptoms complaints or concerns at this time. MD elicited complaint: back pain Pertinent past history: prior back pain Onset (ago): week(s) ( Past few weeks worse this week and worse today) Timing: constant and progressively worsening Severity: moderate Similar Symptoms Previously: Yes Quality: aching, spasming and throbbing Location: lumbar spine Radiation: right leg below the knee Exacerbating factors: movement, supine positioning, sitting upright, walking and lifting Relieving factors: none Context: other ( started shortly after she traveled from [place] in March) Associated symptoms: denies other symptoms Treatments prior to arrival: NSAIDS and acetaminophen Work related injury: No Related Data Home Medications Medication Instructions Recorded Confirmed atorvastatin 40 mg tablet 40 mg PO BEDTIME 02/27/20 03/08/22 docusate sodium 100 mg capsule 100 mg PO BID 02/27/20 03/08/22 (Colace) epinephrine 0.3 mg/0.3 mL 0.3 mg IM Q10M PRN Anaphylaxis 02/27/20 02/19/21 injection, auto-injector fluticasone propionate 50 1 spray intranasal DAILY 02/27/20 03/08/22 mcg/actuation nasal spray,suspension (Flonase Allergy Relief) furosemide 40 mg tablet 40 mg PO DAILY 02/27/20 03/08/22 ipratropium 0.5 mg-albuterol 3 mg 3 ml inhalation Q6-8H PRN Wheezing 02/27/20 03/08/22 (2.5 mg base)/3 mL nebulization soln loperamide-simethicone 2 mg-125 mg 1 tab PO Q3H PRN Diarrhea 02/27/20 03/08/22 tablet loratadine 10 mg capsule 10 mg PO DAILY 02/27/20 03/08/22 lorazepam 0.5 mg tablet 0.5 mg PO BID PRN Anxiety 02/27/20 03/08/22 montelukast 10 mg tablet 10 mg PO BEDTIME 02/27/20 03/08/22 olopatadine 0.1 % eye drops 1 drp ophthalmic (eye) BID 02/27/20 03/08/22 pantoprazole 40 mg tablet,delayed 40 mg PO DAILY 02/27/20 03/08/22 release tramadol 50 mg tablet 50 mg PO DAILY 02/27/20 03/08/22 zolpidem 10 mg tablet 10 mg PO BEDTIME PRN Insomnia 02/27/20 03/08/22 acetaminophen 500 mg tablet 1 tab PO Q8H PRN Headache 11/05/20 03/08/22 citalopram 40 mg tablet 1 tab PO QAM 11/05/20 03/08/22 cyclobenzaprine 5 mg tablet 1 tab PO BID PRN Muscle Spasm 11/05/20 03/08/22 hydroxyzine HCl 25 mg tablet 1 tab PO BEDTIME PRN itch 11/05/20 03/08/22 ketotifen fumarate 0.025 % (0.035 1 drp ophthalmic (eye) BID 11/05/20 03/08/22 %) eye drops metformin 500 mg tablet,extended 1 tab PO QPM 11/05/20 03/08/22 release 24 hr Previous Rx's Medication Instructions Recorded albuterol sulfate 2.5 mg/3 mL 2.5 mg (3 mL) inhalation Q4H PRN 10/30/20 (0.083 %) solution for nebulization shortness of breath or wheezing #75 mL albuterol sulfate 90 mcg/actuation 1 inh inhalation QID PRN shortness 11/05/20 aerosol inhaler of breath or wheezing #8.5 grams fluticasone 250 mcg-salmeterol 50 1 ea inhalation BID #60 ea 01/03/22 mcg/dose blistr powdr for inhalation (Advair Diskus) diclofenac sodium 75 mg 75 mg PO BID #60 tabs 02/23/22 tablet,delayed release cholecalciferol (vitamin D3) 50 50 mcg PO DAILY #90 caps 03/17/22 mcg (2,000 unit) capsule thiamine HCl (vitamin B1) 100 mg 100 mg PO DAILY #90 tabs 03/17/22 tablet zinc gluconate 10 mg lozenges 10 mg PO DAILY #100 ea 03/17/22 cyclobenzaprine 10 mg tablet 10 mg PO Q8H #14 tabs 04/08/22 naproxen 500 mg tablet 500 mg PO BID PRN pain #14 tabs 04/08/22 Allergies Allergy/AdvReac Type Severity Reaction Status Date / Time sulfamethoxazole Allergy Intermediate RASH Verified 04/08/22 10:10 [From Bactrim] Review of Systems Review of Systems: Constitutional : No trauma, No Weight loss, No Fever, No Chills, ENT/Mouth : No Hearing loss, No Ear Pain, No Nasal Congestion, No Sinus Pain, No Hoarseness, No sore throat, No Rhinorrhea, No Swallowing Difficulty Cardiovascular : No Chest Pain, No SOB Respiratory : No Cough, No Dyspnea Gastrointestinal : No Nausea, No Vomiting, No Diarrhea, No abdominal Pain, No Hematochezia, No Melena Genitourinary : No Dysuria, No Urinary Frequency, No Hematuria, No Urinary or Bowel Incontinence/retention Musculoskeletal : + Back pain, + bilateral leg pain/ swelling/calf tenderness, No neck pain, No joint stiffness, No joint swelling Skin : No Skin Lesions, No rash or signs of infection Neuro : No Weakness, + radiation, No Numbness, No Paresthesias, No headache, no loss of bowel or bladder incontinence, no saddle anesthesia, Focal weakness Denies history of IV drug usage. Yes all other systems are reviewed and are negative PMFSH Past Medical History Attestation statement: The following information was validated with the patient. Source: old records reviewed, obtained from family and nursing notes reviewed Medical History Allergic rhinitis Arthritis Asthma Axillary hidradenitis suppurativa COPD (chronic obstructive pulmonary disease) COVID-19 vaccine administered Diabetes GERD (gastroesophageal reflux disease) Hyperlipidemia Hypersomnolence Hypertension Obesity (BMI 30-39.9) KAYLEE (obstructive sleep apnea) KAYLEE on CPAP Renal calculi Renal stones Surgical History H/O colonoscopy H/O hemicolectomy H/O lithotripsy H/O tubal ligation History of carpal tunnel release History of esophagogastroduodenoscopy (EGD) History of salpingoophorectomy Hx of cholecystectomy Hx of cystoscopy Hx of knee surgery Hx of total knee replacement S/P laparoscopic sleeve gastrectomy Family History Family History Mother No problems noted. Father No problems noted. Son No problems noted. Daughter No problems noted. Son No problems noted. Sister No problems noted. Sister No problems noted. Brother No problems noted. Brother No problems noted. Brother No problems noted. Brother No problems noted. 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 Blood pressure 156/95 Heart rate normal. Respiration rate normal. Temperature normal. Oxygen saturation normal. Appearance: Alert. Oriented X3. No acute distress. Head: Normal external exam. Normocephalic. Atraumatic. No Pederson signs noted. No raccoon eyes noted Eyes: PERRLA. EOMI. Conjunctiva and sclera normal. Eyelids normal. ENT: EAC normal. TM's Normal. No septal hematoma noted. No hemotympanum noted. Pharynx normal. Uvula midline. Moist mucous membranes. No lesions/ulcerations or masses noted on the tongue. Normal voice. No trismus noted. No drooling noted. No muffled voice noted. Neck: Normal inspection. Neck supple. FROM. No adenopathy. Thyroid Normal. No tracheal deviation noted. No crepitus is noted. No meningeal signs. No neck mass noted. No signs of trauma noted. CVS: Normal heart rate and rhythm. Heart sound normal. Pulses normal throughout. No murmurs/rales/gallops. Respiratory: No respiratory distress. Painless inspiration. Breath sounds normal. No wheezes/rales/rhonchi noted. Chest nontender. No crepitus is noted. No accessory muscle usage noted or decreased air movement noted. No signs of trauma. Abdomen: Soft and nontender. Nondistended. No guarding. No rigidity. Bowel sounds normal in all 4 quadrants. No distention noted. No organomegaly noted. No visible injury noted. No rebound tenderness. Negative Rovsing sign. Negative obturator's sign. Negative psoas sign. Negative Fisher sign. Back: No CVA tenderness. Full range of motion noted. Nontender. No signs of trauma. Patient neuro intact bilaterally and distally on all 4 extremities. Patient's reflexes intact bilaterally and distally on all 4 extremities. No rashes/lesion/induration/fluctuance or signs of infection noted. Skin: Skin warm and dry. Normal skin color. Normal skin turgor. No rashes/lesions/lacerations noted. Extremities: No lower extremity edema. + bilateral calf tenderness is noted. Extremities exhibit normal range of motion and nontender. Neuro: Oriented X 3. No motor deficit. No sensory deficit. Reflexes normal. Normal steady gait. No focal neuro deficits noted. CN's II-XII intact bilaterally? Vascular: + radial pulses/+ 2 distal pedal pulses/+2 dorsalis pedis b/l. Normal cap refill. No cyanosis noted to upper extremity nails and lower extremity toes nails. Course Course Course Narrative: Pt c likely muscular pain, but could be herniated disc. Neuro exam shows no deficits. Not c/w AAA/epidural abscess/dissection.No high risk Hx (Incont, fever, immunosupp, recent surgery/LP, coag, signif trauma, wt loss, puls mass, hx/o Ca, TB, or IVDU) to warrant MRI/CT today. Not c/w Pyelo/UTI/kidney stone/spinal fx. Not cauda equina syndrome. I did obtain an x-ray of lumbar spine which revealed osteopenia and chronic changes no acute processes noted. Venous duplex ultrasound of bilateral lower extremity negative for DVT or any other acute processes. Patient most likely muscular skeletal pain lumbar strain or radiculopathy. Will DC home with symptomatic treatment instructions return if any new or worsening symptoms to follow up with primary care provider. Patient understands agrees with this plan. Medications Administered Discontinued Medications Generic Name Dose Route Start Last Admin Trade Name Freq PRN Reason Stop Dose Admin Cyclobenzaprine HCl 10 mg 04/08/22 11:22 04/08/22 11:29 Cyclobenzaprine Hcl 10 Mg Tablet PO 04/08/22 11:23 10 mg ONCE ONE Administration Naproxen 500 mg 04/08/22 11:22 04/08/22 11:29 Naproxen 500 Mg Tablet PO 04/08/22 11:23 500 mg ONCE ONE Administration Medical Decision Making Medical Decision Making Discussion of test interpretation with radiology: Discussion of test interpretation with radiology lumbar spine x-ray FINDINGS: There is generalized osteopenia. Normal lumbar lordosis and spinal alignment is seen. Mild multilevel degenerative changes. No acute abnormality. Multiple surgical clips overlie the upper abdomen. XR/XR lumbar spine 2-3V IMPRESSION: Generalized osteopenia and mild multilevel degenerative changes without acute abnormality. venous duplex ultrasound of bilateral lower extremity FINDINGS: RIGHT: There is normal venous compression and respiratory variation and augmented flow. The visualized common femoral vein, superficial femoral vein, profunda femoral vein, popliteal vein, and the trifurcation region shows no evidence of deep venous thrombosis. ? There is no significant popliteal fossa cyst. LEFT: There is normal venous compression and respiratory variation and augmented flow. The visualized common femoral vein, superficial femoral vein, profunda femoral vein, popliteal vein, and the trifurcation region shows no evidence of deep venous thrombosis. ? There is no significant popliteal fossa cyst. If the patient's symptoms persist, followup ultrasound in 5 days 7 days might be of value to exclude proximal propagation from a non-visualized calf vein. US/US venous duplex LE BI IMPRESSION: No DVT demonstrated in the bilateral lower extremities. Independent historian (e.g., spouse, EMS, friend): Independent historian (e.g., spouse, EMS, friend) Clinical information obtained from an independent historian. History obtained from or confirmed by: Other ( family) Discharge Plan Discharge Clinical Impression: Osteopenia, Lumbar back sprain, Muscle spasm of both lower legs Patient Disposition: Home, Self-Care Instructions: Leg Cramps (ED), Bone Density Test (DC) Prescriptions: New naproxen 500 mg tablet 500 mg PO BID PRN (Reason: pain) Qty: 14 0RF cyclobenzaprine 10 mg tablet 10 mg PO Q8H Qty: 14 0RF No Action fluticasone propion-salmeterol [Advair Diskus] 250-50 mcg/dose blister with device 1 ea inhalation BID Qty: 60 5RF diclofenac sodium 75 mg tablet,delayed release (DR/EC) 75 mg PO BID Qty: 60 3RF cholecalciferol (vitamin D3) 50 mcg (2,000 unit) capsule 50 mcg PO DAILY Qty: 90 3RF zinc gluconate 10 mg lozenge 10 mg PO DAILY Qty: 100 3RF thiamine HCl (vitamin B1) 100 mg tablet 100 mg PO DAILY Qty: 90 3RF albuterol sulfate 2.5 mg /3 mL (0.083 %) solution for nebulization 2.5 mg inhalation Q4H PRN (Reason: shortness of breath or wheezing) Qty: 75 0RF citalopram 40 mg tablet 1 tab PO QAM ketotifen fumarate 0.025 % (0.035 %) drops 1 drp ophthalmic (eye) BID acetaminophen 500 mg tablet 1 tab PO Q8H PRN (Reason: Headache) hydroxyzine HCl 25 mg tablet 1 tab PO BEDTIME PRN (Reason: itch) metformin 500 mg tablet extended release 24 hr 1 tab PO QPM cyclobenzaprine 5 mg tablet 1 tab PO BID PRN (Reason: Muscle Spasm) albuterol sulfate 90 mcg/actuation HFA aerosol inhaler 1 inh inhalation QID PRN (Reason: shortness of breath or wheezing) Qty: 8.5 0RF zolpidem 10 mg tablet 10 mg PO BEDTIME PRN (Reason: Insomnia) lorazepam 0.5 mg tablet 0.5 mg PO BID PRN (Reason: Anxiety) olopatadine 0.1 % drops 1 drp ophthalmic (eye) BID Rx Instructions: separate doses by at least 6-8 hours furosemide 40 mg tablet 40 mg PO DAILY epinephrine 0.3 mg/0.3 mL auto-injector 0.3 mg IM Q10M PRN (Reason: Anaphylaxis) Rx Instructions: for 2 doses ipratropium-albuterol 0.5 mg-3 mg(2.5 mg base)/3 mL solution for nebulization 3 ml inhalation Q6-8H PRN (Reason: Wheezing) tramadol 50 mg tablet 50 mg PO DAILY loperamide-simethicone 2-125 mg tablet 1 tab PO Q3H PRN (Reason: Diarrhea) Rx Instructions: do not exceed 4 tabs in 24 hrs pantoprazole 40 mg tablet,delayed release (DR/EC) 40 mg PO DAILY docusate sodium [Colace] 100 mg capsule 100 mg PO BID montelukast 10 mg tablet 10 mg PO BEDTIME loratadine 10 mg capsule 10 mg PO DAILY fluticasone propionate [Flonase Allergy Relief] 50 mcg/actuation spray,suspension 1 spray intranasal DAILY Rx Instructions: administer into each nostril atorvastatin 40 mg tablet 40 mg PO BEDTIME Referrals: Leelee Yanes MD [Primary Care Provider] - 3 days Print Language: Armenian
== END 2022-04-08 13:10 | disposition home or self-care (01) ==
PROVIDERS: Emergency Provider Emergency Medicine Emergency Medical Services; PCP Internal Medicine
DX: M54.50 Low back pain, unspecified (principal); R60.0 Localized edema; M85.80 Other specified disorders of bone density and structure, unspecified site; M62.838 Other muscle spasm; J44.9 Chronic obstructive pulmonary disease, unspecified; E11.9 Type 2 diabetes mellitus without complications; Z79.899 Other long term (current) drug therapy; Z79.84 Long term (current) use of oral hypoglycemic drugs
CPT/HCPCS: 72100; 82947; 93970; 99283

== ENCOUNTER 2022-04-21 11:19 | Outpatient (REF) | payer MEDICAID, SELFPAY | END 2022-04-21 11:20 | disposition home or self-care (01) | LOC: HO.MAMMO 11:19 | PROVIDERS: PCP Internal Medicine; Visit Provider Internal Medicine | DX: Z12.31 Encounter for screening mammogram for malignant neoplasm of breast (principal) | CPT/HCPCS: 77063; 77067 ==

== ENCOUNTER → 2022-06-07 13:56 | Outpatient (BNVA) | payer MEDICAID, SELFPAY | PROVIDERS: PCP Internal Medicine; Visit Provider Physician Assistant Surgical | DX: E66.01 Morbid (severe) obesity due to excess calories (principal); Z68.41 Body mass index [BMI] 40.0-44.9, adult; Z98.84 Bariatric surgery status; Z90.3 Acquired absence of stomach [part of] | CPT/HCPCS: 99212 ==

== ENCOUNTER → 2022-06-15 13:21 | Outpatient (BNVA) | payer MEDICAID, SELFPAY | PROVIDERS: PCP Internal Medicine; Visit Provider Internal Medicine | DX: G47.33 Obstructive sleep apnea (adult) (pediatric) (principal); E66.9 Obesity, unspecified; Z68.37 Body mass index [BMI] 37.0-37.9, adult; J44.9 Chronic obstructive pulmonary disease, unspecified; Z99.89 Dependence on other enabling machines and devices | CPT/HCPCS: 99212 ==

== ENCOUNTER → 2022-06-24 13:04 | Outpatient (BNVA) | payer MEDICAID, SELFPAY | PROVIDERS: PCP Internal Medicine; Visit Provider Physician Assistant | DX: M17.12 Unilateral primary osteoarthritis, left knee (principal) | CPT/HCPCS: 99212 ==

== ENCOUNTER → 2022-07-14 13:01 | Outpatient (BNVA) | payer MEDICAID, SELFPAY | PROVIDERS: PCP Internal Medicine; Visit Provider Orthopaedic Surgery | DX: M17.12 Unilateral primary osteoarthritis, left knee (principal) | CPT/HCPCS: 99212 ==

== ENCOUNTER → 2022-08-17 13:39 | Outpatient (BNVA) | payer MEDICAID, SELFPAY | PROVIDERS: PCP Internal Medicine; Visit Provider Internal Medicine | DX: E66.9 Obesity, unspecified (principal); J44.9 Chronic obstructive pulmonary disease, unspecified; G47.33 Obstructive sleep apnea (adult) (pediatric); Z99.89 Dependence on other enabling machines and devices; Z68.41 Body mass index [BMI] 40.0-44.9, adult | CPT/HCPCS: 99212 ==

== ENCOUNTER 2022-08-25 10:48 | Outpatient (REF) | payer MEDICAID, SELFPAY ==
--- NOTE | ~2022-08-25 | XR_ITS ---
EXAMINATION: XR KNEE, LEFT CLINICAL INFORMATION: Status post fall bilateral knee pain COMPARISON: 10/25/2021 TECHNIQUE: Three views of the left knee. FINDINGS: Moderate narrowing of the bilateral tibiofemoral compartments with chondrocalcinosis. Tricompartmental osteophytosis. No large effusion. XR/XR knee LT 3V IMPRESSION: Moderate osteoarthritis of the left knee joint with chondrocalcinosis.
--- NOTE | ~2022-08-25 | XR_ITS ---
EXAMINATION: XR KNEE, RIGHT CLINICAL INFORMATION: Pain COMPARISON: 10/25/2021 TECHNIQUE: Three views of the right knee. FINDINGS: No acute fracture or dislocation. Status post right total knee arthroplasty with persistent lucency adjacent to the patellar component, not significant changed from prior study. No large effusion. XR/XR knee RT 3V IMPRESSION: Status post right total knee arthroplasty with persistent lucency adjacent to the patellar component, not significant changed from prior study. No acute fracture or dislocation.
== END 2022-08-25 10:49 | disposition home or self-care (01) ==
LOC: HO.XRAY 10:48
PROVIDERS: PCP Internal Medicine; Visit Provider Internal Medicine
DX: M25.561 Pain in right knee (principal); M25.562 Pain in left knee; Z96.651 Presence of right artificial knee joint; Z91.81 History of falling
CPT/HCPCS: 73562

== ENCOUNTER → 2022-09-15 12:59 | Outpatient (BNVA) | payer MEDICAID, SELFPAY | PROVIDERS: PCP Internal Medicine; Visit Provider Physician Assistant | DX: M17.12 Unilateral primary osteoarthritis, left knee (principal); Z96.651 Presence of right artificial knee joint | CPT/HCPCS: 99212 ==

== ENCOUNTER 2022-09-20 06:07 | Inpatient (IN) | payer MEDICAID, SELFPAY ==
[2022-09-12 12:16] VITALS: BP 122/68; PULSE 83; RESP 20; O2SAT 96; BMI 42.3
--- NOTE | 2022-09-12 12:29 | P.CONAN_ITS ---
Documented by User: Claudia Mancuso NP 09/14/22 15:24 HPI - Anesthesia Eval Consult details Narrative: 56yo F for Left Knee Replacement Total, 09/20/22 Medically optimized per PCP [facility] Active Problems Active Problems: All Active Problems (Updated 09/12/22 @ 12:09 by Sakshi Ocampo RN) Renal stones (Acute) Obesity (Acute) Vitamin D deficiency (Acute) Carpal tunnel syndrome of right wrist (Acute) Carpal tunnel syndrome of left wrist (Acute) Trigger finger, right middle finger (Acute) Trigger finger, right ring finger (Acute) Mallet deformity of right little finger (Acute) Morbid obesity with BMI of 40.0-44.9, adult (Acute) KAYLEE (obstructive sleep apnea) (Acute) Osteoarthritis of left knee (Acute) Status post sleeve gastrectomy (Acute) Morbid obesity (Acute) Hypersomnolence (Acute) Renal calculi (Acute) GERD (gastroesophageal reflux disease) (Acute) Diabetes (Acute) COPD (chronic obstructive pulmonary disease) (Acute) Allergic rhinitis (Acute) KAYLEE on CPAP (Acute) Obesity (BMI 30-39.9) (Acute) Hypertension (Acute) Hyperlipidemia (Acute) Arthritis (Acute) Asthma (Acute) Past Medical History Medical History Allergic rhinitis Arthritis Asthma Axillary hidradenitis suppurativa COPD (chronic obstructive pulmonary disease) COVID-19 vaccine administered Diabetes GERD (gastroesophageal reflux disease) Hyperlipidemia Hypersomnolence Hypertension Obesity (BMI 30-39.9) KAYLEE on CPAP Renal calculi Family History Family History Mother No problems noted. Father No problems noted. Son No problems noted. Daughter No problems noted. Son No problems noted. Sister No problems noted. Sister No problems noted. Brother No problems noted. Brother No problems noted. Brother No problems noted. Brother No problems noted. Family history of problems with anesthesia: No Surgical History Surgical History H/O colonoscopy H/O hemicolectomy H/O lithotripsy H/O tubal ligation History of carpal tunnel release History of esophagogastroduodenoscopy (EGD) History of salpingoophorectomy Hx of cholecystectomy Hx of cystoscopy Hx of knee surgery Hx of total knee replacement S/P laparoscopic sleeve gastrectomy History of Problems with Anesthesia: No Social History Social History Are you a primary health care sanitary technician to a significant other at home: No Do you presently have visiting nurse or other home services: Yes (daughter Mercy is HEALTH AND PHYSICAL EDUCATION TEACHER) Alcohol intake: never Patient Tobacco Use Status: Never used Tobacco Use of substances other than those prescribed or required for medical reasons: No Have you been hit, kicked, punched, or otherwise hurt by someone within the past year? 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 3 x RUE skin excision by dermatology 09/09/22. Open, scant weeping, no s/s of infection No recent CP/SOB. COPD/asthma at baseline. Activity limited to knee pain/deconditioning. Meds Allergies Allergy/AdvReac Type Severity Reaction Status Date / Time sulfamethoxazole Allergy Intermediate RASH Verified 09/20/22 06:13 [From Bactrim] Home Medications Medication Instructions Recorded Confirmed Last Taken Type atorvastatin 40 mg tablet 40 mg PO BEDTIME 02/27/20 09/09/22 09/19/22 History docusate sodium 100 mg capsule 100 mg PO BID 02/27/20 09/12/22 11/05/20 History (Colace) epinephrine 0.3 mg/0.3 mL 0.3 mg IM Q10M PRN Anaphylaxis 02/27/20 09/09/22 Unk nown History injection, auto-injector fluticasone propionate 50 1 spray intranasal DAILY 02/27/20 09/09/22 09/19/22 History mcg/actuation nasal spray,suspension (Flonase Allergy Relief) furosemide 40 mg tablet 40 mg PO DAILY 02/27/20 09/09/22 09/19/22 History loratadine 10 mg capsule 10 mg PO DAILY 02/27/20 09/09/22 09/19/22 History lorazepam 0.5 mg tablet 0.5 mg PO BID PRN Anxiety 02/27/20 09/09/22 Unknown History montelukast 10 mg tablet 10 mg PO BEDTIME 02/27/20 09/09/22 09/19/22 History olopatadine 0.1 % eye drops 1 drp ophthalmic (eye) BID 02/27/20 09/12/22 09/19/22 History pantoprazole 40 mg tablet,delayed 40 mg PO DAILY 02/27/20 09/20/22 09/20/22 04:30 History release tramadol 50 mg tablet 50 mg PO DAILY 02/27/20 09/09/22 09/19/22 History zolpidem 10 mg tablet 10 mg PO BEDTIME PRN Insomnia 02/27/20 09/09/22 11/04/20 History acetaminophen 500 mg tablet 1 tab PO Q8H PRN Headache 11/05/20 09/12/22 Unknown History citalopram 40 mg tablet 1 tab PO QAM 11/05/20 09/09/22 09/19/22 History hydroxyzine HCl 25 mg tablet 1 tab PO BEDTIME PRN itch 11/05/20 09/12/22 Unknown History ketotifen fumarate 0.025 % (0.035 1 drp ophthalmic (eye) BID 11/05/20 09/12/22 09/19/22 History %) eye drops metformin 500 mg tablet,extended 1 tab PO QPM 11/05/20 09/09/22 09/19/22 History release 24 hr cholecalciferol (vitamin D3) 50 50 mcg PO DAILY 08/17/22 09/09/22 09/19/22 History mcg (2,000 unit) capsule cyanocobalamin (vitamin B-12) 1,000 mcg PO DAILY 08/17/22 09/12/22 09/19/22 History 1,000 mcg tablet (Vitamin B-12) magnesium oxide 250 mg PO DAILY 08/17/22 09/09/22 09/19/22 History multivitamin with folic acid 400 1 tab PO DAILY 08/17/22 09/12/22 09/19/22 History mcg tablet (Daily-Royal (with folic acid)) bupropion HCl 150 mg 24 hr tablet, 150 mg PO QAM 09/09/22 09/09/22 09/19/22 History extended release diclofenac sodium 75 mg 75 mg PO BID PRN Pain 09/12/22 09/12/22 Unknown History tablet,delayed release Exam Exam Date and Time: September 12, 2022 1229 Height,Weight and Vital Signs: Height 5 ft 1 in Weight 101.605 kg Last Vital Signs Pulse 83 09/12/22 12:16 Resp 20 09/12/22 12:16 BP 122/68 09/12/22 12:16 Pulse Ox 96 09/12/22 12:16 O2 Del Method Room Air 09/12/22 12:16 Pertinent Lab Results Pertinent Lab Results: BMP, CBC, A1C from outside facility WNL (Creat 1.1) Narrative Narrative: EKG 08/2022 NSR @ 83 Airway Mallampati Class: I TM Dist: >3cm Denture: Upper Loose/Missing/Broken Teeth: Yes (Many lower missing, no loose/broken) Heart: RRR Lungs: CTAB Assessment and Plan Assessment Anesthesia Assessment: Anesthesia Plan Discussed and PAT Visit Final Anesthetic Review Family History of Problems with Anesthesia: No History of Problems with Anesthesia: No Documented by User: Chuckie Richter MD 09/20/22 07:35 [facility] Past Medical History Medical History Allergic rhinitis Arthritis Asthma Axillary hidradenitis suppurativa COPD (chronic obstructive pulmonary disease) COVID-19 vaccine administered Diabetes GERD (gastroesophageal reflux disease) Hyperlipidemia Hypersomnolence Hypertension Obesity (BMI 30-39.9) KAYLEE on CPAP Renal calculi Family History Family History Mother No problems noted. Father No problems noted. Son No problems noted. Daughter No problems noted. Son No problems noted. Sister No problems noted. Sister No problems noted. Brother No problems noted. Brother No problems noted. Brother No problems noted. Brother No problems noted. Surgical History Surgical History H/O colonoscopy H/O hemicolectomy H/O lithotripsy H/O tubal ligation History of carpal tunnel release History of esophagogastroduodenoscopy (EGD) History of salpingoophorectomy Hx of cholecystectomy Hx of cystoscopy Hx of knee surgery Hx of total knee replacement S/P laparoscopic sleeve gastrectomy Social History Social History Are you a primary health care sanitary technician to a significant other at home: No Do you presently have visiting nurse or other home services: Yes (daughter Mercy is HEALTH AND PHYSICAL EDUCATION TEACHER) Alcohol intake: never Patient Tobacco Use Status: Never used Tobacco Use of substances other than those prescribed or required for medical reasons: No Have you been hit, kicked, punched, or otherwise hurt by someone within the past year? 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 Meds Allergies Allergy/AdvReac Type Severity Reaction Status Date / Time sulfamethoxazole Allergy Intermediate RASH Verified 09/20/22 06:13 [From Bactrim] Home Medications Medication Instructions Recorded Confirmed Last Taken Type atorvastatin 40 mg tablet 40 mg PO BEDTIME 02/27/20 09/09/22 09/19/22 History docusate sodium 100 mg capsule 100 mg PO BID 02/27/20 09/12/22 11/05/20 History (Colace) epinephrine 0.3 mg/0.3 mL 0.3 mg IM Q10M PRN Anaphylaxis 02/27/20 09/09/22 Unknown History injection, auto-injector fluticasone propionate 50 1 spray intranasal DAILY 02/27/20 09/09/22 09/19/22 History mcg/actuation nasal spray,suspension (Flonase Allergy Relief) furosemide 40 mg tablet 40 mg PO DAILY 02/27/20 09/09/22 09/19/22 History loratadine 10 mg capsule 10 mg PO DAILY 02/27/20 09/09/22 09/19/22 History lorazepam 0.5 mg tablet 0.5 mg PO BID PRN Anxiety 02/27/20 09/09/22 Unknown History montelukast 10 mg tablet 10 mg PO BEDTIME 02/27/20 09/09/22 09/19/22 History olopatadine 0.1 % eye drops 1 drp ophthalmic (eye) BID 02/27/20 09/12/22 09/19/22 History pantoprazole 40 mg tablet,delayed 40 mg PO DAILY 02/27/20 09/20/22 09/20/22 04:30 History release tramadol 50 mg tablet 50 mg PO DAILY 02/27/20 09/09/22 09/19/22 History zolpidem 10 mg tablet 10 mg PO BEDTIME PRN Insomnia 02/27/20 09/09/22 11/04/20 History acetaminophen 500 mg tablet 1 tab PO Q8H PRN Headache 11/05/20 09/12/22 Unknown History citalopram 40 mg tablet 1 tab PO QAM 11/05/20 09/09/22 09/19/22 History hydroxyzine HCl 25 mg tablet 1 tab PO BEDTIME PRN itch 11/05/20 09/12/22 Unknown History ketotifen fumarate 0.025 % (0.035 1 drp ophthalmic (eye) BID 11/05/20 09/12/22 09/19/22 History %) eye drops metformin 500 mg tablet,extended 1 tab PO QPM 11/05/20 09/09/22 09/19/22 History release 24 hr cholecalciferol (vitamin D3) 50 50 mcg PO DAILY 08/17/22 09/09/22 09/19/22 History mcg (2,000 unit) capsule cyanocobalamin (vitamin B-12) 1,000 mcg PO DAILY 08/17/22 09/12/22 09/19/22 History 1,000 mcg tablet (Vitamin B-12) magnesium oxide 250 mg PO DAILY 08/17/22 09/09/22 09/19/22 History multivitamin with folic acid 400 1 tab PO DAILY 08/17/22 09/12/22 09/19/22 History mcg tablet (Daily-Royal (with folic acid)) bupropion HCl 150 mg 24 hr tablet, 150 mg PO QAM 09/09/22 09/09/22 09/19/22 History extended release diclofenac sodium 75 mg 75 mg PO BID PRN Pain 09/12/22 09/12/22 Unknown History tablet,delayed release Exam Airway Mallampati Class: III Neck ROM: Full Assessment and Plan Final Anesthetic Review NPO: Yes ASA Class: III Final Preanesthetic Review: No Changes in Pt Med Stat, Meds/Allgs Chart Reviewed, Consent Obtained/Reviewed and Anes Risks/Benef Reviewed Patient Risk: Intermediate Procedure Risk: Intermediate Assessment/Block/Sedation in SS: Assess/Block/Sedation-SS Anesthetic Plan Anesthetic Plan: Spinal, Regional Block and Agree w/ Assess. and Plan Disposition: Standard PACU
[2022-09-12 14:30] LABS: MRSA Nasal PCR NEGATIVE (Negative); SA Nasal PCR NEGATIVE (Negative)
[2022-09-20] VITALS (21 sets, daily range): BP systolic 111–143; BP diastolic 67–94; PULSE 75–98; RESP 12–24; TEMP 36–36.8; O2SAT 93–98
--- NOTE | ~2022-09-20 | XR_ITS ---
EXAMINATION: XR KNEE, LEFT CLINICAL INFORMATION: Left EK COMPARISON: None available. TECHNIQUE: Four views of the left knee. FINDINGS: There is a total left knee arthroplasty with prosthetic components in satisfactory alignment. Immediate postoperative changes are noted. The soft tissues are normal. XR/XR knee LT 2V IMPRESSION: Total left knee arthroplasty with prosthetic components in satisfactory alignment. Immediate postoperative changes are noted.
--- OUTSIDE RECORDS SUMMARY | 2022-09-20 06:14 | XMS_ITS | Continuity of Care Document ---
Author Name Unknown Organization [facility] Address [address] [place] [phone]- Care Team Providers Care Reel Fed Printer Name Role Phone Eduardo FLORENTINO, Ivana Olivares Primary Care Physician [place] [facility] [place] - 04/01/21 [facility] [address] [place] [id number]- Allergies, Adverse Reactions, Alerts Substance Reaction Severity Status pravastatin Active simvastatin Active Keflex Active Rocephin Active Bactrim rash Active Cartia XT Active Medications acetaminophen 500 mg oral capsule 2 capsule = 1,000 mg, By Mouth, Every 6 hours, capsule, 0 Refills, Maintenance Start Date: 06/30/10 Status: Ordered Advair Diskus 500 mcg-50 mcg inhalation powder 1 puffs, Inhalation, 2 times a day, each, 0 Refills, Maintenance Start Date: 06/15/10 Status: Ordered Ambien 10 mg oral tablet 1 tablet = 10 mg, By Mouth, Daily at bedtime, tablet, 0 Refills, Maintenance Start Date: 07/27/10 Status: Ordered amlodipine 10 mg oral tablet 1 tablet = 10 mg, By Mouth, Daily, 0 Refills, Maintenance Start Date: 06/30/10 Status: Ordered cholecalciferol 50,000 intl units oral capsule 1 capsule = 50,000 International_Units, By Mouth, Every week, # 12 capsule, 0 Refills, Maintenance Start Date: 06/13/12 Stop Date: 09/05/12 Status: Ordered citalopram 40 mg oral tablet 1 tablet, By Mouth, Daily, # 30 tablet, 0 Refills, Maintenance, Tablet Start Date: 07/27/10 Status: Ordered DuoNeb 3 mg-0.5 mg/3 ml inhalation solution 3 mL, Inhalation, 4 times a day, # 30 each, 0 Refills, Maintenance, Solution Start Date: 06/29/11 Status: Ordered Epipen Auto Injector = 0.3 mg, Intramuscular, Once, 0 Refills, Maintenance Start Date: 04/06/12 Status: Ordered Flexeril 10 mg oral tablet 1 tablet, By Mouth, 3 times a day, PRN for spasm, # 30 tablet, 0 Refills, Maintenance, Tablet Start Date: 07/27/10 Status: Ordered Flonase 0.05 mg/inh nasal spray 1 sprays, Daily, 0 Refills, Maintenance Start Date: 06/15/10 Status: Ordered Furosemide Daily, 0 Refills, Maintenance Start Date: 04/06/12 Status: Ordered Lipitor 40 mg oral tablet 1 tablet = 40 mg, By Mouth, Daily at bedtime, 0 Refills, Maintenance Start Date: 04/06/12 Status: Ordered Loratadine 10 mg, By Mouth, Daily, Maintenance, 06/15/10 13:23:48 Start Date: 06/15/10 Status: Ordered lorazepam 0.5 mg oral tablet 1 tablet, By Mouth, 3 times a day, PRN for anxiety, tablet, 0 Refills, Maintenance, Tablet Start Date: 07/27/10 Status: Ordered meclizine 12.5 mg oral tablet 1 tablet = 12.5 mg, By Mouth, 3 times a day, PRN for dizziness, # 60 tablet, 0 Refills, Maintenance, 12/31/20 10:36:00 EDT, Tablet, Partial fill upon patient request if the prescription is for a schedule II opioid drug. Start Date: 12/31/20 Status: Ordered Metformin = 500 mg, By Mouth, Daily at supper, 0 Refills, Maintenance, 12/31/20 10:27:00 EDT, Partial fill upon patient request if the prescription is for a schedule II opioid drug. Start Date: 12/31/20 Status: Ordered Montelukast See Instructions, 10 mg By Mouth Daily daily in the evening, 0 Refills, Maintenance, 12/31/20 10:32:00 EDT, Partial fill upon patient request if the prescription is for a schedule II opioid drug. Start Date: 12/31/20 Status: Ordered Patanol 0.1% ophthalmic solution 1 drops, Eyes, Both, 2 times a day, # 5 mL, 0 Refills, Maintenance, Ophth Solution Start Date: 08/13/10 Stop Date: 08/23/10 Status: Ordered ProAir HFA 90 mcg/inh inhalation aerosol with adapter 2 puffs, Inhalation, 4 times a day, 0 Refills, Maintenance Start Date: 06/15/10 Status: Ordered Saline Mist 0.65% nasal solution 0 Refills, Maintenance Start Date: 08/13/10 Status: Ordered Slow-Mag = 64 mg, By Mouth, Daily, tablet, 0 Refills, Maintenance Start Date: 08/13/10 Status: Ordered tramadol 50 mg oral tablet 1 tablet = 50 mg, By Mouth, Every 4 hours, tablet, 0 Refills, Maintenance Start Date: 06/30/10 Status: Ordered Wellbutrin By Mouth, 0 Refills, Maintenance Start Date: 04/06/12 Status: Ordered Problem List Condition Effective Dates Status Health Status Inform ant Anxiety and depression(Confirmed) Active Arthritis, says on her back(Confirmed) Active Asthma(Confirmed) Active Esophageal Reflux(Confirmed) Active Hypertension(Confirmed) Active Morbid Obesity(Confirmed) Active KAYLEE (obstructive sleep apnea)(Confirmed) Active Pain in Limb(Confirmed) Active Peripheral edema(Confirmed) Active
--- OUTSIDE RECORDS SUMMARY | 2022-09-20 06:14 | XMS_ITS | Continuity of Care Document ---
Author Name Unknown Organization [facility] Address [address] [place] [id number]- Care Team Providers Care Marine Firefighter Name Role Phone Leelee Yanes MD Primary Care Physician [facility] [id number] Date(s): 01/17/22 - 02/16/[facility] [address] [place] [address]- Attending Physician: Orlando Mccain Admitting Physician: AdmOrlando landeros Referring Physician: Admtr, Ar8 Allergies, Adverse Reactions, Alerts Substance Reaction Severity [...] Date: 04/06/12 Status: Ordered Problem List Condition Confirmation Course Effective Dates Status Health St atus Informant Anxiety and depression Confirmed Active Arthritis, says on her back Confirmed Active Asthma Confirmed Active Esophageal Reflux Confirmed Active Hypertension Confirmed Active Morbid Obesity Confirmed Active KAYLEE (obstructive sleep apnea) Confirmed Active Pain in Limb Confirmed Active Peripheral edema Confirmed Active Patient Care team information Personnel Name: Farzana KELLY, Leelee Granados Address: Address: [address] [place] [id number]
--- OUTSIDE RECORDS SUMMARY | 2022-09-20 06:14 | XMS_ITS | Continuity of Care Document ---
Author Name Unknown Organization [facility] Address [address] [place] [address]- Care Team Providers Care Maori Liaison Adviser Name Role Phone Farzana KELLY, Leelee Granados Primary Care Physician [place] [facility] [place] - 05/08/22 [facility] [address] [place] [address]- Allergies, Adverse Reactions, Alerts Substance Reaction Severity [...] edema Confirmed Active Patient Care team information Care Team Personnel Name: Farzana KELLY, Leelee Granados Position: [facility] Outreach Member Role: PCP Address: Address: [address] [place] [phone]- Care Team Related Persons Name: LIBIA LUGO Address: home [address] [place] [address]
--- OUTSIDE RECORDS SUMMARY | 2022-09-20 06:14 | XMS_ITS | Continuity of Care Document ---
Author Name Unknown Organization [facility] Address [address] [place] [phone]- Care Team Providers Care Social Services Assistant Name Role Phone Ivana Clark NP, V Primary Care Physician [place] [facility] [place] Date(s): 10/30/20 - 11/29/20 [facility] [address] [place] [id number] Attending Physician: Orlando Mccain Admitting Physician: Orlando Mccain Referring Physician: [id number] Allergies, Adverse Reactions, Alerts Substance Reaction Severity Status pravastatin Active simvastatin Active Keflex Active Rocephin Active Bactrim rash Active Cartia XT Active Medications Accolate 20 mg oral tablet 1 tablet = 20 mg, By Mouth, 2 times a day, 0 Refills, Maintenance Start Date: 06/15/10 Status: Ordered acetaminophen 500 mg oral capsule 2 capsule [...] Refills, Maintenance Start Date: 04/06/12 Status: Ordered gabapentin 100 mg oral capsule 1 capsule = 100 mg, By Mouth, 4 times a day, Refer to Titration sheet provided, # 120 capsule, 0 Refills, Maintenance Start Date: 01/04/11 Status: Ordered Lipitor 40 mg oral tablet [...] Maintenance, Tablet Start Date: 07/27/10 Status: Ordered Micardis 80 mg oral tablet 1 tablet = 80 mg, By Mouth, Daily, 0 Refills, Maintenance Start Date: 06/15/10 Status: Ordered Patanol 0.1% ophthalmic solution 1 drops, Eyes, Both, 2 times a day, # 5 mL, 0 Refills, Maintenance, Ophth Solution Start Date: 08/13/10 Stop Date: 08/23/10 Status: Ordered Potassium Chloride 0 Refills, Maintenance Start Date: 06/29/11 Status: Ordered Prilosec 20 mg oral enteric coated capsule 1 capsule = 20 mg, By Mouth, 2 times a day, 0 Refills, Maintenance Start Date: 06/15/10 Status: Ordered ProAir HFA 90 mcg/inh inhalation [...]
--- OUTSIDE RECORDS SUMMARY | 2022-09-20 06:14 | XMS_ITS | Continuity of Care Document ---
Author Name Unknown Organization [facility] Address [address] [place] [phone]- Care Team Providers Care Packaging Specialist Name Role Phone Leelee Yanes MD Primary Care Physician [facility] [id number] Date(s): 11/24/21 - 02/16/22 [facility] [address] [place] [address]- Attending Physician: Jairo Carbajal MD Admitting Physician: Jairo Carbajal MD Allergies, Adverse Reactions, Alerts Substance Reaction Severity [...] Name: Farzana KELLY, Leelee Granados Address: Address: [address] [place] [id number]
--- OUTSIDE RECORDS SUMMARY | 2022-09-20 06:14 | XMS_ITS | Continuity of Care Document ---
Author Name Unknown Organization [facility] Address [address] [place] [address]- Care Team Providers Care Header Boss Name Role Phone Eduardo FLORENTINO, Ivana Olivares Primary Care Physician [place] [facility] [place] [facility] [id number] Date(s): 09/19/19 - 10/19/[address] [address]- [facility] Attending Physician: AdmOrlando landeros Admitting Physician: Admtr, Ar8 Referring Physician: Admtr, Ar8 Allergies, Adverse Reactions, [...]
--- OUTSIDE RECORDS SUMMARY | 2022-09-20 06:14 | XMS_ITS | Continuity of Care Document ---
Author Name Unknown Organization [facility] Address [address] [place] [phone]- Care Team Providers Care Dairy Tester Name Role Phone Eduardo FLORENTINO, Ivana Olivares [id number] 12[facility]/20 - 04/01/[facility] [address] [place] [address]- Attending Physician: Jairo Carbajal MD Admitting Physician: [...]
--- OUTSIDE RECORDS SUMMARY | 2022-09-20 06:14 | XMS_ITS | Continuity of Care Document ---
Author Name Unknown Organization [facility] Address [address] [place] [phone]- Care Team Providers Care American Indian Studies Professor Name Role Phone Farzana KELLY, Leelee Granados Primary Care Physician [place] [facility] [place] 01/17/22 - 03/31/22 [facility] [address] [place] [phone]- Attending Physician: Jairo Carbajal MD Admitting Physician: [...] Personnel Name: Farzana KELLY, Leelee Granados Position: [facility] Outreach Member Role: PCP Address: Address: [address] [place] [phone]- Care Team Related Persons Name: LIBIA LUGO Address: home [address] [place] [address]
--- OUTSIDE RECORDS SUMMARY | 2022-09-20 06:14 | XMS_ITS | Continuity of Care Document ---
Author Name Unknown Organization [facility] Address [address] [place] [address]- Care Team Providers Care Gut Cleaner Name Role Phone Eduardo FLORENTINO, Ivana Olivares Primary Care Physician En[place] [facility] [place]s): 10/29/20 - 11/29/20 [facility] [address] [place] [id number] Attending Physician: Jairo Carbajal MD Admitting Physician: Jairo Carbajal MD Referring Physician: Ivana Clark NP, V Allergies, Adverse Reactions, Alerts Substance Reaction Severity [...]
--- OUTSIDE RECORDS SUMMARY | 2022-09-20 06:14 | XMS_ITS | Continuity of Care Document ---
Author Name Unknown Organization [facility] Address [address] [place] [address]- Care Team Providers Care Process Designer Name Role Phone Ivana Clark NP, V Primary Care Physician [place] [facility] [place] [id number] Date(s): 09/03/19 - 10/15/[address] [phone]- [facility] Discharge Disposition: A-D/C Home Attending Physician: Ivana Clark NP, V Admitting Physician: Ivana Clark NP, V Referring Physician: Ivana Clark NP, V Allergies, [...]
[2022-09-20 06:30] LABS: Hematocrit 38.1 % (37.0-47.0)
[2022-09-20 06:33] LABS: Glucose, Whole Blood 106 mg/dL (60-115)
[2022-09-20] MEDS: Lactated Ringers 1,000 ML 100 ML IVCONT ×2 (06:54→13:39)
--- NOTE | 2022-09-20 07:07 | MHC.SHP ---
Pre-Procedural Eval Section A Date of Service: 09/20/22 The patient is an INPATIENT: No Changes since office visit: No Cold of Flu in the past 2 weeks, No New Medical Problems, No Changes in Medication and No Patient answered all questions The History & Physical has been completed within 30 days and I have reviewed it.: Yes Section B Chief Complaint: Unilateral primary osteoarthritis, left knee Allergies: Allergies Allergy/AdvReac Type Severity Reaction Status Date / Time sulfamethoxazole Allergy Intermediate RASH Verified 09/20/22 06:13 [From Bactrim] Plan I have reviewed the history and physical and performed a pertinent physical examination on my patient. No changes have occurred unless specified. Time Spent With Patient Time: Total time managing care of this patient today ____ minutes.
--- NOTE | 2022-09-20 08:34 | PHA.MEDREC ---
Pharmacy Consult ? Medication Reconciliation Pharmacy has reviewed the medication reconciliation completed by nursing.
--- NOTE | 2022-09-20 09:37 | PM.OP ---
Brief Operative Note Date of Service: 09/20/22 Pre-op diagnosis: Left knee OA Post-op diagnosis: same Procedure: Left TKA Implants: [place] Triathlon press fit posterior stabilized 06/03/11 Surgeon: Malik Benson MD Anesthesia: regional and spinal Was an Management Internship used for this Procedure?: Yes Management Internship: Jayla Eller Estimated blood loss (mL): 150 IV fluids (mL): 1,000 Pathology: other Condition: stable Disposition: PACU
--- NOTE | 2022-09-20 09:54 | W.PM.OPN ---
Operative Note Operative Note Date of Service: 09/20/22 Narrative: Date of Service: 09/20/22 Pre-op diagnosis: Left knee OA Post-op diagnosis: same Procedure: Left TKA Implants: [place] Triathlon press fit posterior stabilized 2/3/12ps/29a Surgeon: Malik Benson MD Anesthesia: regional and spinal Was an District Administrative Assistant used for this Procedure?: Yes District Administrative Assistant: Jayla Eller Estimated blood loss (mL): 150 IV fluids (mL): 1,000 Pathology: other Condition: stable Disposition: PACU Procedure in detail: The patient was brought to the operating room and prepped and draped in standard sterile fashion. A time-out was called to identify proper site proper procedure proper surgeon and IV antibiotics were administered. 1 g of IV tranexamic acid was administered. I began by making a midline incision to the retinaculum and performed a medial parapatellar arthrotomy. The patella was translated laterally and the knee was flexed up. The medial compartment and patella were partially eburnated. I performed a small medial peel and resected the infrapatellar fat pad. Ilsa's line was then used to drill my intramedullary femoral guide and my distal femur cut of 10 mm was made in 5 degrees of valgus while protecting the soft tissues. I then measured a # 2 femur and placed my cutting guide in 3deg or ER and made my anterior posterior and chamfer cuts protecting the soft tissues at all times. I then made my box but removing the PCL. Once I was satisfied with my cuts I turned my attention to the tibia. I removed the meniscus medially and laterally and , using an external cutting guide, in line with the tibial crest and the third ray, I made my distal tibial cut in 0 deg slope of while protecting the posterior soft tissues at all times. An extension block was used to confirm appropriate amount of bony resection. I then sized a #3 tibia and once I was satisfied that there was complete tibial coverage I placed my trial and with the trial femur in place took the knee through range of motion. I was satisfied with the extension and flexion as well as the stability at 0, 30 and 90 degrees. I then turned my attention to the patella where I removed 1 cm from the undersurface of the patella and then trialed a 29a patellar button. Again the knee was taken through range of motion I was satisfied with the tracking. I then returned to the femur and drilled my femoral lug holes and prepared the tibia. A femoral bone plug was placed and the knee was irrigated copiously. I then press fit the patella, tibia and femur in standard fashion. I trialed different inserts until I selected a #12 insert. The final insert was placed and a 3 minutes iodine soak with local TXA was performed. The knee was then closed with a running Quill suture, a 3 0 Vicryl and karen on the skin. Patient was then placed in sterile dressing and brought to recovery room in stable condition there were no known complications.
[2022-09-20] MEDS: oxyCODONE HCl Immed Release 5 MG TABLET PO (10:38)
[2022-09-20] MEDS: Acetaminophen 1,000 MG/100 ML PIGGYBACK 400 MG IV ×3 (10:53→19:40)
[2022-09-20] MEDS: HYDROmorphone HCl 0.5 MG/0.5 ML SYRINGE IVPUSH ×2 (10:58→11:23)
[2022-09-20] MEDS: fentaNYL citrate/PF 100 MCG/2 ML VIAL 50 MCG IVPUSH ×2 (11:48→11:53)
--- NOTE | 2022-09-20 13:13 | PC.NURSE ---
Pt states she is in pain, PACU, per pt RN, resident received multiple doses of narcotics. Asking for more on the unit. PA homeowner association manager paged for safe dose of pain medication to give, awaiting.
[2022-09-20 13:21] LABS: Creatinine Clr Calc Pharmacy 66.4; Estimated Glomerular Filt Rate 56
--- NOTE | 2022-09-20 13:31 | P.CONHOSP_ITS ---
History of Present Illness Data of Consult Service Date: 09/20/22 Primary Care Provider: Leelee Yanes MD HPI 56-year-old woman with history of COPD, diabetes mellitus, hypertension is status post left total knee arthroplasty. Surgery was unremarkable. Patient denied any nausea, vomiting. She has been able to drink without any difficulty she did report some feelings of dizziness. otherwise, her vital signs are stable and she is resting in bed. Review of Systems Review of Systems: Denies any recent fever chills or decrease in appetite respiratory denies any shortness of breath coverage production cardiovascular denies chest pain gastrointestinal denies any dysphagia abdominal pain nausea vomiting or diarrhea genitourinary denies any dysuria frequency or hematuria musculoskeletal left knee pain neuropsych dizziness all other systems reviewed are negative FOR[facility]LY [facility] Medical History (Updated 09/20/22 @ 16:04 by Alyx Ceron NP) Allergic rhinitis Arthritis Asthma Axillary hidradenitis suppurativa COPD (chronic obstructive pulmonary disease) COVID-19 vaccine administered Diabetes GERD (gastroesophageal reflux disease) Hyperlipidemia Hypersomnolence Hypertension Obesity (BMI 30-39.9) KAYLEE on CPAP Renal calculi Family History Mother No problems noted. Father No problems noted. Son No problems noted. Daughter No problems noted. Son No problems noted. Sister No problems noted. Sister No problems noted. Brother No problems noted. Brother No problems noted. Brother No problems noted. Brother No problems noted. Surgical History H/O colonoscopy H/O hemicolectomy H/O lithotripsy H/O tubal ligation History of carpal tunnel release History of esophagogastroduodenoscopy (EGD) History of salpingoophorectomy Hx of cholecystectomy Hx of cystoscopy Hx of knee surgery Hx of total knee replacement S/P laparoscopic sleeve gastrectomy Social History Household Members: Children Housing: Condominium Are you a primary nonfarm animal caretaker to a significant other at home: No Do you presently have visiting nurse or other home services: Yes ([employer]) Alcohol intake: never Patient Tobacco Use Status: Never used Tobacco Use of substances other than those prescribed or required for medical reasons: No Have you been hit, kicked, punched, or otherwise hurt by someone within the past year? If so, by whom?: No Do you feel safe in your current relationship?: Yes Is there a partner from a previous relationship who is making you feel unsafe now?: No Are you made to feel afraid or neglected: No Are you DNR?: No Advance Directives: Yes Advance Directives Information Provided: Yes Advance Directives on File: Yes Advance Directives Date on File: 03/08/15 Do you have thoughts of harming others: None Do you have a plan to hurt others: No Plan Recently lost weight without trying: No How much weight loss: Not applicable Eating poorly because of decreased appetite: No Nutrition screen score: 0 Nutrition Risks: No Nutritional Risk Patient : No : No Poor oral hygiene: No Current occupational status: disabled 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 Meds Allergies Allergy/AdvReac Type Severity Reaction Status Date / Time sulfamethoxazole Allergy Intermediate RASH Verified 09/20/22 06:13 [From Bactrim] Active Medications: Current Medications Albuterol Sulfate (Albuterol Sulfate (0.083%) 2.5 Mg/3 Ml Vial.Neb) 2.5 mg INHA LE Q4H PRN PRN Reason: shortness of breath or wheezin Celecoxib (Celecoxib 200 Mg Capsule) 200 mg PO BID SAUMYA Cyclobenzaprine HCl (Cyclobenzaprine Hcl 10 Mg Tablet) 10 mg PO Q8H PRN PRN Reason: Muscle Spasm Docusate Sodium (Docusate Sodium 100 Mg Capsule) 100 mg PO BID [facility] Enoxaparin Sodium (Enoxaparin Sodium 40 Mg/0.4 Ml Syringe) 40 mg SUBCUT Q24H [facility] Escitalopram Oxalate (Escitalopram Oxalate 20 Mg Tablet) 20 mg PO DAILY [facility] Fluticasone Propionate (Fluticasone Propionate Nasal 16 Gm Mckenzie) 1 spray NOSTRIL-B DAILY [facility] Fluticasone/Vilanterol (Fluticasone/Vilanterol 100/25 Blst.W.Dev) 1 puff INHALE DAILY [facility] Hydromorphone HCl (Hydromorphone Hcl 0.5 Mg/0.5 Ml Syringe) 0.25 mg IVPUSH Q4H PRN; Protocol PRN Reason: Pain, Severe (Pain Scale 7-10) Hydroxyzine HCl (Hydroxyzine Hcl 25 Mg Tablet) 25 mg PO BEDTIME PRN PRN Reason: itch Lactated Ringer's (Lr) 1,000 mls @ 100 mls/hr IVCONT .Q10H [facility] Stop: 09/21/22 10:00 Cefazolin Sodium/Dextrose (Ancef) 2 gm in 50 mls @ 100 mls/hr IV POSTOP@1400 [facility] Stop: 09/20/22 14:29 Acetaminophen (Ofirmev) 1,000 mg in 100 mls @ 400 mls/hr IV Q6H [facility] Stop: 09/21/22 07:44 Loratadine (Loratadine 10 Mg Tablet) 10 mg PO DAILY [facility] Lorazepam (Lorazepam 0.5 Mg Tablet) 0.5 mg PO BID PRN PRN Reason: Anxiety Montelukast Sodium (Montelukast Sodium 10 Mg Tablet) 10 mg PO BEDTIME [facility] Omeprazole (Omeprazole 20 Mg Capsule.Dr) 20 mg PO DAILY [facility] Ondansetron HCl (Ondansetron Hcl 4 Mg/2 Ml Vial) 4 mg IVPUSH Q8H PRN PRN Reason: Nausea and Vomiting Oxycodone HCl (Oxycodone Hcl Immed Release 5 Mg Tablet) 5 mg PO Q4H PRN PRN Reason: Pain, Moderate(Pain Scale 4-6) Oxycodone HCl (Oxycodone Hcl Er 10 Mg Tab.Er.12h) 10 mg PO BID [facility] Sodium Chloride (0.9 % Sodium Chloride Flush 3 Ml Syringe) 3 ml IVFLUSH QSHIFT [facility] Zolpidem Tartrate (Zolpidem Tartrate 5 Mg Tablet) 10 mg PO BEDTIME PRN PRN Reason: Insomnia Home Medications Medication Instructions Recorded Confirmed Last Taken Type atorvastatin 40 mg tablet 40 mg PO BEDTIME 02/27/20 09/09/22 09/19/22 History docusate sodium 100 mg capsule 100 mg PO BID 02/27/20 09/12/22 11/05/20 History (Colace) epinephrine 0.3 mg/0.3 mL 0.3 mg IM Q10M PRN Anaphylaxis 02/27/20 09/09/22 Unknown History injection, auto-injector fluticasone propionate 50 1 spray intranasal DAILY 02/27/20 09/09/22 09/19/22 History mcg/actuation nasal spray,suspension (Flonase Allergy Relief) furosemide 40 mg tablet 40 mg PO DAILY 02/27/20 09/09/22 09/19/22 History loratadine 10 mg capsule 10 mg PO DAILY 02/27/20 09/09/22 09/19/22 History lorazepam 0.5 mg tablet 0.5 mg PO BID PRN Anxiety 02/27/20 09/09/22 Unknown History montelukast 10 mg tablet 10 mg PO BEDTIME 02/27/20 09/09/22 09/19/22 History pantoprazole 40 mg tablet,delayed 40 mg PO DAILY 02/27/20 09/20/22 09/20/22 04:30 History release tramadol 50 mg tablet 50 mg PO DAILY 02/27/20 09/09/22 09/19/22 History zolpidem 10 mg tablet 10 mg PO BEDTIME PRN Insomnia 02/27/20 09/09/22 11/04/20 History acetaminophen 500 mg tablet 1 tab PO Q8H PRN Headache 11/05/20 09/12/22 Unknown History citalopram 40 mg tablet 1 tab PO QAM 11/05/20 09/09/22 09/19/22 History hydroxyzine HCl 25 mg tablet 1 tab PO BEDTIME PRN itch 11/05/20 09/12/22 Unknown History metformin 500 mg tablet,extended 1 tab PO QPM 11/05/20 09/09/22 09/19/22 History release 24 hr cholecalciferol (vitamin D3) 50 50 mcg PO DAILY 08/17/22 09/09/22 09/19/22 History mcg (2,000 unit) capsule cyanocobalamin (vitamin B-12) 1,000 mcg PO DAILY 08/17/22 09/12/22 09/19/22 History 1,000 mcg tablet (Vitamin B-12) magnesium oxide 250 mg PO DAILY 08/17/22 09/09/22 09/19/22 History multivitamin with folic acid 400 1 tab PO DAILY 08/17/22 09/12/22 09/19/22 History mcg tablet (Daily-Royal (with folic acid)) diclofenac sodium 75 mg 75 mg PO BID PRN Pain 09/12/22 09/12/22 Unknown History tablet,delayed release cyclobenzaprine 10 mg tablet 10 mg PO Q8H PRN Muscle Spasm 09/20/22 09/12/2223 History Physical Exam Vital Signs and Narrative: Vital Signs: Last Vital Signs Temp 96.8 F 09/20/22 13:00 Pulse 90 09/20/22 11:58 Resp 20 09/20/22 13:00 BP 140/83 H 09/20/22 13:00 Pulse Ox 97 09/20/22 13:00 O2 Del Method Nasal Cannula 09/20/22 13:00 O2 Flow Rate 2 09/20/22 13:00 BMI result Body Mass Index 42.3 Appearing in no acute distress head is normocephalic atraumatic eyes pupils are PERRLA sclera is anicteric mouth throat mucous membranes are intact and moist neck is supple no lymphadenopathy, no JVD noted lung sounds are clear to auscultation heart regular rate rhythm, clear S1, S2 positive bowel sounds, abdomen is soft, nontender neuro patient is alert x3, no focal deficits Left knee with surgical dressing intact, no staining, surgical incision not visualized Results Labs 09/20/22 06:16 09/20/22 13:01 Labs: Laboratory Results - last 24 hr 09/20/22 09/20/22 06:23 13:01 Estim Creat Clear Calc 66.4 Estimated GFR 56 POC Glucose 106 Imaging Radiologist's Impressions: Impressions Knee X-Ray 09/20/22 10:37 IMPRESSION: Total left knee arthroplasty with prosthetic components in satisfactory alignment. Immediate postoperative changes are noted. Assessment and Plan (1) Osteoarthritis of left knee: Status: Acute (2) Obesity: Status: Acute Plan 56-year-old woman status post left total knee arthroplasty Left total knee arthroplasty Management as per surgical team Pain management Dizziness Likely secondary to anesthesia, postop medications Meclizine as needed monitor blood pressure Asthma No exacerbation Continue home inhalers Mental health Continue home medications Diabetes mellitus Sliding scale, ADA diet GERD Continue PPI DVT prophylaxis Lovenox Attending Dr. Whitaker Medical consultation complete. Will sign off Time Spent With Patient Time: Total time managing care of this patient today ____ minutes.
[2022-09-20] MEDS: HYDROmorphone HCl 0.5 MG/0.5 ML SYRINGE 0.25 MG IVPUSH ×2 (13:33→21:02)
[2022-09-20] MEDS: ceFAZolin Sodium/Dextrose,Iso 2 GM/50 ML PIGGYBACK IV (13:39)
[2022-09-20] MEDS: Meclizine HCl 12.5 MG TABLET PO (16:00)
[2022-09-20 16:33] LABS: Glucose, Whole Blood 143 mg/dL (60-115)
[2022-09-20] MEDS: oxyCODONE HCl Immed Release 5 MG TABLET 10 MG PO (17:56)
[2022-09-20 20:13] LABS: Glucose, Whole Blood 138 mg/dL (60-115)
[2022-09-20] MEDS: Celecoxib 200 MG CAPSULE PO (21:19)
[2022-09-20] MEDS: Atorvastatin Calcium 40 MG TABLET PO (21:19)
[2022-09-20] MEDS: Docusate Sodium 100 MG CAPSULE PO (21:19)
[2022-09-20] MEDS: Montelukast Sodium 10 MG TABLET PO (21:19)
[2022-09-20] MEDS: oxyCODONE HCl ER 10 MG TAB.ER.12H PO (22:24)
[2022-09-20] MEDS: LORazepam 0.5 MG TABLET PO (23:24)
[2022-09-21] MEDS: Lactated Ringers 1,000 ML 100 ML IVCONT (01:06)
[2022-09-21] MEDS: Acetaminophen 1,000 MG/100 ML PIGGYBACK 400 MG IV ×2 (01:39→09:06)
[2022-09-21] MEDS: HYDROmorphone HCl 0.5 MG/0.5 ML SYRINGE 0.25 MG IVPUSH ×4 (02:07→19:51)
[2022-09-21 03:00] VITALS: BP 135/74; PULSE 110; RESP 18; TEMP 36.4; O2SAT 96
[2022-09-21] MEDS: oxyCODONE HCl Immed Release 5 MG TABLET 10 MG PO ×4 (04:51→21:17)
[2022-09-21 06:23] LABS: MANUAL DIFF FLAG NO
[2022-09-21 06:31] LABS: Basophils Percent Auto 0.1 % (0-2); Hematocrit 32.2 % (37.0-47.0); Hemoglobin 10.3 g/dl (12.0-16.0); Imm Gran Abs Auto 0.03 X10*3/uL (0.00-0.03); Imm Gran Pct Auto 0.3 % (0.0-0.4); Lymphocytes Absolute Auto 1.7 X10*3/uL (1.2-4.9); Lymphocytes Percent Auto 16.1 % (20-40); Mean Corpuscular Hemoglobin 26.9 pg (27.0-33.0); Mean Corpuscular Volume 84.1 fL (80.0-98.0); Mean Platelet Volume 11.1 fL (9.4-12.3); Monocytes Percent Auto 9.5 % (2-11); Platelet Count 276 X10*3/uL (160-400); Red Blood Count 3.83 X10*6/uL (4.20-5.50); Red Cell Distribution Width 14.5 % (11.0-16.0); White Blood Count 10.8 X10*3/uL (4.8-10.8)
[2022-09-21 06:56] LABS: Anion Gap 14 (12-20); Blood Urea Nitrogen 13 mg/dL (9-16); Calcium 9.3 mg/dL (8.4-10.2); Carbon Dioxide 26 mmol/L (22-29); Chloride 106 mmol/L (96-108); Creatinine Clr Calc Pharmacy 62.1; Estimated Glomerular Filt Rate 52; Glucose Fasting 118 mg/dL (60-99); Potassium 4.5 mmol/L (3.3-5.1); Sodium 141 mmol/L (135-145)
[2022-09-21 07:00] VITALS: BP 122/87; PULSE 110; RESP 20; TEMP 37.1; O2SAT 97
--- NOTE | 2022-09-21 07:43 | PM.PNORT ---
Subjective Subjective Date of Service: 09/21/22 Interval history: POD1 s/p LTKA. Patient is resting in bed comfortably. No overnight events. Pain is managed. Physical Exam Vital Signs: Vital Signs: Last Vital Signs Temp 97.6 F 09/21/22 03:00 Pulse 110 H 09/21/22 03:00 Resp 18 09/21/22 03:00 BP 135/74 09/21/22 03:00 Pulse Ox 96 09/21/22 03:00 O2 Del Method CPAP 09/21/22 03:00 O2 Flow Rate 2 09/20/22 13:00 BMI result Body Mass Index 42.3 Const: General: cooperative, healthy appearing and no acute distress Resp: Effort & Inspection: normal respiratory effort and able to speak in complete sentences Cardio: Rate: regular rate Peripheral pulses: Peripheral pulses 2+ throughout GI: Palpation (GI): Soft to palpation Skin: Lesions: no lesions Rashes: no rashes Extrem: Other: Left knee Aquacel is c/d/i. Able to dorsi/plantarflex. NVI. Procedures Date of Service Date of Service: 09/21/22 Progress Note: A&P Assessment and plan (1) Status post total knee replacement, left: Status: Acute Plan Continue pain mgmnt Begin Lovenox for dvt ppx begin PT for LTKA- WBAT Dispo planning-Pending PT eval, pain mgmnt Time Spent With Patient Time: Total time managing care of this patient today ____ minutes. Quality Stroke Does the patient have a stroke diagnosis?: No VTE Prior VTE?: No VTE Risk Level:: Medical - moderate - high VTE Device Contraindication: N/A - Device Ordered VTE Drug Contraindication: N/A - Med Ordered
[2022-09-21] MEDS: Fluticasone/Vilanterol 100/25 BLST.W.DEV 1 PUFF INHALE (07:49)
[2022-09-21 07:51] VITALS: PULSE 122; RESP 16; O2SAT 97
[2022-09-21 08:00] LABS: Glucose, Whole Blood 108 mg/dL (60-115)
[2022-09-21] MEDS: Omeprazole 20 MG CAPSULE.DR PO (08:16)
[2022-09-21] MEDS: Celecoxib 200 MG CAPSULE PO ×2 (08:16→20:07)
[2022-09-21] MEDS: Magnesium Oxide 400 MG TABLET 200 MG PO (08:16)
[2022-09-21] MEDS: Enoxaparin Sodium 40 MG/0.4 ML SYRINGE SUBCUT (08:16)
[2022-09-21] MEDS: Thiamine HCL 100 MG TABLET PO (08:16)
[2022-09-21] MEDS: Cyanocobalamin (Vitamin B-12) 1,000 MCG TABLET 1000 MCG PO (08:16)
[2022-09-21] MEDS: Furosemide 40 MG TABLET PO (08:17)
[2022-09-21] MEDS: 0.9 % Sodium Chloride Flush 3 ML SYRINGE IVFLUSH ×2 (08:17→17:15)
[2022-09-21] MEDS: Loratadine 10 MG TABLET PO (08:17)
[2022-09-21] MEDS: Multivitamin TABLET 1 TAB PO (08:17)
[2022-09-21] MEDS: Escitalopram Oxalate 20 MG TABLET PO (08:17)
--- NOTE | 2022-09-21 09:06 | MHC.CLN ---
NUTRITION CHANGED DIETARY KCALS TO DIABETIC 1800 KCALS TO BETTER MEET ESTIMATED ENERGY NEEDS.
[2022-09-21] MEDS: Docusate Sodium 100 MG CAPSULE PO ×2 (09:08→20:05)
[2022-09-21] MEDS: oxyCODONE HCl ER 10 MG TAB.ER.12H PO ×2 (09:08→20:06)
[2022-09-21] MEDS: Cholecalciferol (Vitamin D3) 25 MCG TABLET 50 MCG PO (09:08)
[2022-09-21] MEDS: Meclizine HCl 12.5 MG TABLET PO (10:13)
[2022-09-21] MEDS: Fluticasone Propionate Nasal 16 GM SPRAY 1 SPRAY NOSTRIL-B (10:13)
[2022-09-21 11:11] LABS: Glucose, Whole Blood 126 mg/dL (60-115)
--- NOTE | 2022-09-21 11:32 | MHC.CM.PN ---
Female 57 S/P LT TKA Lives with children. She receives assist from [facility]/HCP. HCP on file. A referral was sent to [facility]. DP Home w [facility]. Resume [employer] services. [employer] will provide transport home.
--- NOTE | 2022-09-21 11:56 | HO.POSTANES ---
Post Anesthesia Evaluation Post Anesthesia Evaluation Date of Service: 09/21/22 Vital Signs: Vital Signs Temp Pulse Resp BP Pulse Ox O2 Del Method 09/21/22 07:00 98.7 F 110 H 20 122/87 97 Room Air 09/21/22 07:51 122 H 16 09/21/22 03:00 97.6 F 110 H 18 135/74 96 CPAP Anesthesia: Nerve Block and General Mental Status: Awake Pain Control: Satisfactory Nausea/Vomiting: None Hydration: Adequate Anesthesia-Related Issues: No Anes. Related Issues
[2022-09-21 13:31] VITALS: BP 146/77; PULSE 113; RESP 18; O2SAT 95
[2022-09-21 15:42] VITALS: BP 118/65; PULSE 106; RESP 18; TEMP 36.7; O2SAT 95
[2022-09-21 16:24] LABS: Glucose, Whole Blood 121 mg/dL (60-115)
[2022-09-21 19:13] VITALS: BP 114/63; PULSE 100; RESP 16; TEMP 36.4; O2SAT 95
[2022-09-21 19:20] LABS: Glucose, Whole Blood 118 mg/dL (60-115)
[2022-09-21] MEDS: Atorvastatin Calcium 40 MG TABLET PO (20:07)
[2022-09-21] MEDS: Montelukast Sodium 10 MG TABLET PO (20:07)
[2022-09-22] VITALS (7 sets, daily range): BP systolic 109–130; BP diastolic 55–70; PULSE 103–114; RESP 16–18; TEMP 36.1–36.7; O2SAT 92–98
[2022-09-22] MEDS: HYDROmorphone HCl 0.5 MG/0.5 ML SYRINGE 0.25 MG IVPUSH ×4 (05:03→17:40)
[2022-09-22] MEDS: Omeprazole 20 MG CAPSULE.DR PO (06:52)
[2022-09-22 07:01] LABS: MANUAL DIFF FLAG NO
[2022-09-22 07:07] LABS: Basophils Percent Auto 0.2 % (0-2); Eosinophils Percent Auto 0.1 % (0-4); Hematocrit 30.1 % (37.0-47.0); Hemoglobin 9.6 g/dl (12.0-16.0); Imm Gran Abs Auto 0.03 X10*3/uL (0.00-0.03); Imm Gran Pct Auto 0.3 % (0.0-0.4); Lymphocytes Absolute Auto 1.9 X10*3/uL (1.2-4.9); Lymphocytes Percent Auto 21.6 % (20-40); Mean Corpuscular HGB Conc 31.9 g/dl (31.0-35.0); Mean Corpuscular Hemoglobin 27.3 pg (27.0-33.0); Mean Corpuscular Volume 85.5 fL (80.0-98.0); Mean Platelet Volume 11.1 fL (9.4-12.3); Monocytes Percent Auto 11.1 % (2-11); Neutrophils Absolute Auto 5.8 x10*3/uL (2.0-8.3); Neutrophils Percent Auto 66.7 % (45-73); Platelet Count 248 X10*3/uL (160-400); Red Blood Count 3.52 X10*6/uL (4.20-5.50); White Blood Count 8.7 X10*3/uL (4.8-10.8)
[2022-09-22 07:32] LABS: Anion Gap 11 (12-20); Blood Urea Nitrogen 10 mg/dL (9-16); Calcium 8.7 mg/dL (8.4-10.2); Carbon Dioxide 29 mmol/L (22-29); Chloride 107 mmol/L (96-108); Creatinine Clr Calc Pharmacy 77.1; Estimated Glomerular Filt Rate > 60; Glucose Fasting 104 mg/dL (60-99); Potassium 4.2 mmol/L (3.3-5.1); Sodium 143 mmol/L (135-145)
[2022-09-22 07:44] LABS: Glucose, Whole Blood 118 mg/dL (60-115)
[2022-09-22] MEDS: Fluticasone/Vilanterol 100/25 BLST.W.DEV 1 PUFF INHALE (08:09)
--- NOTE | 2022-09-22 08:51 | PM.PNORT ---
Subjective Subjective Date of Service: 09/22/22 Interval history: POD2 s/p LTKA. Patient is resting in bed comfortably. No overnight events. Pain is managed. Physical Exam Vital Signs: Vital Signs: Last Vital Signs Temp 97.2 F 09/22/22 07:14 Pulse 109 H 09/22/22 08:10 Resp 16 09/22/22 08:10 BP 112/59 L 09/22/22 07:14 Pulse Ox 95 09/22/22 07:14 O2 Del Method Room Air 09/22/22 07:14 O2 Flow Rate 2 09/20/22 13:00 BMI result Body Mass Index 42.3 Const: General: cooperative, healthy appearing and no acute distress Resp: Effort & Inspection: normal respiratory effort and able to speak in complete sentences Cardio: Rate: regular rate Peripheral pulses: Peripheral pulses 2+ throughout GI: Palpation (GI): Soft to palpation Skin: Lesions: no lesions Rashes: no rashes Extrem: Other: Left knee Aquacel is c/d/i. Able to dorsi/plantarflex. NVI. Procedures Date of Service Date of Service: 09/22/22 Progress Note: A&P Assessment and plan (1) Status post total knee replacement, left: Status: Acute Plan Continue pain mgmnt Continue Lovenox for dvt ppx Continue PT for LTKA- WBAT Dispo planning-PT, pain mgmnt, anticipate D/C home tomorrow Time Spent With Patient Time: Total time managing care of this patient today ____ minutes. Quality Stroke Does the patient have a stroke diagnosis?: No VTE Prior VTE?: No VTE Risk Level:: Medical - moderate - high VTE Device Contraindication: N/A - Device Ordered VTE Drug Contraindication: N/A - Med Ordered
[2022-09-22] MEDS: Magnesium Oxide 400 MG TABLET 200 MG PO (09:38)
[2022-09-22] MEDS: 0.9 % Sodium Chloride Flush 3 ML SYRINGE IVFLUSH ×3 (09:39→21:22)
[2022-09-22] MEDS: Cholecalciferol (Vitamin D3) 25 MCG TABLET 50 MCG PO (09:39)
[2022-09-22] MEDS: Loratadine 10 MG TABLET PO (09:39)
[2022-09-22] MEDS: Furosemide 40 MG TABLET PO (09:39)
[2022-09-22] MEDS: Thiamine HCL 100 MG TABLET PO (09:39)
[2022-09-22] MEDS: Cyanocobalamin (Vitamin B-12) 1,000 MCG TABLET 1000 MCG PO (09:39)
[2022-09-22] MEDS: Multivitamin TABLET 1 TAB PO (09:39)
[2022-09-22] MEDS: Celecoxib 200 MG CAPSULE PO ×2 (09:39→21:21)
[2022-09-22] MEDS: Escitalopram Oxalate 20 MG TABLET PO (09:39)
[2022-09-22] MEDS: oxyCODONE HCl ER 10 MG TAB.ER.12H PO ×2 (09:39→21:21)
[2022-09-22] MEDS: Docusate Sodium 100 MG CAPSULE PO ×2 (09:39→21:21)
[2022-09-22] MEDS: Fluticasone Propionate Nasal 16 GM SPRAY 1 SPRAY NOSTRIL-B (09:40)
[2022-09-22] MEDS: Enoxaparin Sodium 40 MG/0.4 ML SYRINGE SUBCUT (09:40)
[2022-09-22 11:23] LABS: Glucose, Whole Blood 130 mg/dL (60-115)
[2022-09-22] MEDS: oxyCODONE HCl Immed Release 5 MG TABLET 10 MG PO (16:05)
[2022-09-22 16:21] LABS: Glucose, Whole Blood 104 mg/dL (60-115)
[2022-09-22 19:50] LABS: Glucose, Whole Blood 104 mg/dL (60-115)
[2022-09-22] MEDS: Meclizine HCl 12.5 MG TABLET PO (21:21)
[2022-09-22] MEDS: Zolpidem Tartrate 5 MG TABLET 10 MG PO (21:21)
[2022-09-22] MEDS: Montelukast Sodium 10 MG TABLET PO (21:22)
[2022-09-22] MEDS: Atorvastatin Calcium 40 MG TABLET PO (21:22)
[2022-09-23 03:35] VITALS: BP 115/63; PULSE 107; RESP 14; TEMP 36.9; O2SAT 93
[2022-09-23] MEDS: Omeprazole 20 MG CAPSULE.DR PO (05:27)
[2022-09-23 06:40] LABS: MANUAL DIFF FLAG NO
[2022-09-23 06:44] LABS: Basophils Percent Auto 0.4 % (0-2); Eosinophils Absolute Auto 0.1 X10*3/uL (0.0-0.4); Eosinophils Percent Auto 0.8 % (0-4); Hematocrit 29.8 % (37.0-47.0); Hemoglobin 9.4 g/dl (12.0-16.0); Imm Gran Abs Auto 0.05 X10*3/uL (0.00-0.03); Imm Gran Pct Auto 0.6 % (0.0-0.4); Lymphocytes Absolute Auto 2.1 X10*3/uL (1.2-4.9); Lymphocytes Percent Auto 23.5 % (20-40); Mean Corpuscular HGB Conc 31.5 g/dl (31.0-35.0); Mean Corpuscular Hemoglobin 27.2 pg (27.0-33.0); Mean Corpuscular Volume 86.1 fL (80.0-98.0); Monocytes Absolute Auto 0.9 X10*3/uL (0.1-1.2); Monocytes Percent Auto 10.4 % (2-11); Neutrophils Absolute Auto 5.8 x10*3/uL (2.0-8.3); Neutrophils Percent Auto 64.3 % (45-73); Platelet Count 263 X10*3/uL (160-400); Red Blood Count 3.46 X10*6/uL (4.20-5.50); Red Cell Distribution Width 14.9 % (11.0-16.0)
[2022-09-23] MEDS: oxyCODONE HCl ER 10 MG TAB.ER.12H PO (07:02)
[2022-09-23] MEDS: oxyCODONE HCl Immed Release 5 MG TABLET 10 MG PO ×2 (07:02→12:23)
[2022-09-23] MEDS: Docusate Sodium 100 MG CAPSULE PO (07:03)
[2022-09-23] MEDS: Loratadine 10 MG TABLET PO (07:03)
[2022-09-23] MEDS: Cyanocobalamin (Vitamin B-12) 1,000 MCG TABLET 1000 MCG PO (07:03)
[2022-09-23] MEDS: LORazepam 0.5 MG TABLET PO (07:03)
[2022-09-23] MEDS: Multivitamin TABLET 1 TAB PO (07:03)
[2022-09-23] MEDS: Enoxaparin Sodium 40 MG/0.4 ML SYRINGE SUBCUT (07:03)
[2022-09-23] MEDS: Celecoxib 200 MG CAPSULE PO (07:03)
[2022-09-23] MEDS: Furosemide 40 MG TABLET PO (07:03)
[2022-09-23] MEDS: Thiamine HCL 100 MG TABLET PO (07:04)
[2022-09-23] MEDS: 0.9 % Sodium Chloride Flush 3 ML SYRINGE IVFLUSH (07:04)
[2022-09-23] MEDS: Cholecalciferol (Vitamin D3) 25 MCG TABLET 50 MCG PO (07:04)
[2022-09-23] MEDS: Magnesium Oxide 400 MG TABLET 200 MG PO (07:04)
[2022-09-23] MEDS: Escitalopram Oxalate 20 MG TABLET PO (07:04)
[2022-09-23 07:13] VITALS: BP 127/61; PULSE 100; RESP 18; TEMP 36.3; O2SAT 95
[2022-09-23 07:22] LABS: Anion Gap 13 (12-20); Blood Urea Nitrogen 9 mg/dL (9-16); Calcium 8.8 mg/dL (8.4-10.2); Carbon Dioxide 28 mmol/L (22-29); Chloride 106 mmol/L (96-108); Creatinine Clr Calc Pharmacy 82.8; Estimated Glomerular Filt Rate > 60; Glucose Fasting 99 mg/dL (60-99); Sodium 143 mmol/L (135-145)
[2022-09-23 07:25] LABS: Glucose, Whole Blood 100 mg/dL (60-115)
--- NOTE | 2022-09-23 07:55 | P.DS_ITS ---
DS: Providers Provider Date of Service: 09/23/22 Date of admission: 09/20/22 06:07 Primary care physician: Leelee Yanes MD Consults: 09/20/22 12:11 Consult to Hospitalist Routine Comment: Consulting Provider: Hospitalist Reason For Exam: diabetes DS: Diagnosis Discharge Diagnosis (1) Status post total knee replacement, left: Status: Acute DS: Summary Hospital Course Hospital Course: The patient underwent a successful Left total knee arthroplasty on 09/20/22, was transferred to PACU and then to the floor to recover. During their stay, their vitals were stable, afebrile at . Labs were unremarkable, H/H . POD 1 she was started on Lovenox for DVT ppx, they also received Physical Therapy services twice a day. Physical therapy should include gait training, ROM to tolerance and quad strength. He is WBAT. Prior to discharge, his dressing was changed, incision clean dry and intact, new Aquacel dressing applied. The Aquacel dressing shoulder remain intact and dry at all times. Any concerns with the dressing, please contact orthopedic office. No showering. The plan is to be discharged home with VNA Time Spent with Patient Time attestation: Total time managing care of this patient today ____ minutes. Discharge coordination time: Less than 30 minutes Quality: Safe Use of Opioids Does Pt have an Active Cancer Diagnosis on the Problem List?: No Quality: Stroke Does the patient have a stroke diagnosis?: No Physical Exam Vital Signs: Vital Signs: Last Vital Signs Temp 97.4 F 09/23/22 07:13 Pulse 100 09/23/22 07:13 Resp 18 09/23/22 07:13 BP 127/61 09/23/22 07:13 Pulse Ox 95 09/23/22 07:13 O2 Del Method Room Air 09/23/22 07:13 O2 Flow Rate 2 09/20/22 13:00 BMI result Body Mass Index 42.3 Const: General: cooperative, healthy appearing and no acute distress Resp: Effort & Inspection: normal respiratory effort and able to speak in complete sentences Cardio: Rate: regular rate Peripheral pulses: Peripheral pulses 2+ throughout GI: Palpation (GI): Soft to palpation Skin: Lesions: no lesions Rashes: no rashes Extrem: Other: Left knee incision is c/d/i. Able to dorsi/plantarflex. NVI. DS: Data Data Completed and Pending Pending studies at discharge: Pending at discharge 09/20/22 09:28 Surgical [PTH] Routine Labs on day of discharge: Laboratory Results - last 24 hr 09/22/22 09/22/22 09/22/22 11:18 16:16 19:41 WBC RBC Hgb Hct MCV MCH MCHC RDW Plt Count MPV Immature Gran % (Auto) Neut % (Auto) Lymph % (Auto) [place] % (Auto) Eos % (Auto) Baso % (Auto) Lymph # (Auto) [place] # (Auto) Eos # (Auto) Baso # (Auto) Abs Immat Gran (auto) Absolute Neuts (auto) Absolute Nucleated RBC Nucleated RBC % (auto) Sodium Potassium Chloride Carbon Dioxide Anion Gap BUN Creatinine Estim Creat Clear Calc Estimated GFR POC Glucose 130 H 104 104 Fasting Glucose Calcium 09/23/22 09/23/22 09/23/22 05:51 05:51 07:10 WBC 9.0 RBC 3.46 L Hgb 9.4 L Hct 29.8 L MCV 86.1 MCH 27.2 MCHC 31.5 RDW 14.9 Plt Count 263 MPV 11.0 Immature Gran % (Auto) 0.6 H Neut % (Auto) 64.3 Lymph % (Auto) 23.5 [place] % (Auto) 10.4 Eos % (Auto) 0.8 Baso % (Auto) 0.4 Lymph # (Auto) 2.1 [place] # (Auto) 0.9 Eos # (Auto) 0.1 Baso # (Auto) 0.0 Abs Immat Gran (auto) 0.05 H Absolute Neuts (auto) 5.8 Absolute Nucleated RBC 0.000 Nucleated RBC % (auto) 0.0 Sodium 143 Potassium 4.0 Chloride 106 Carbon Dioxide 28 Anion Gap 13 BUN 9 Creatinine 0.81 Estim Creat Clear Calc 82.8 Estimated GFR > 60 POC Glucose 100 Fasting Glucose 99 Calcium 8.8 Discharge Plan Discharge Anticipated Discharge Date/Time: 09/23/22 07:55 Patient Disposition: Home Health Service Discharge Diagnosis: LT TKA Referrals: Jayla Eller PA-C [Physician Automatic Pattern Edger] - 2 Weeks (10/06/22 12:30 [facility] Jayla Eller PA-C) Discharge Medications: New celecoxib 200 mg Capsule 200 mg PO BID 30 Days Qty: 60 0RF docusate sodium 100 mg Capsule 100 mg PO BID 14 Days Qty: 28 0RF oxycodone 5 mg Tablet 5 mg PO Q4H PRN (Reason: Pain, Moderate(Pain Scale 4-6)) 7 Days Qty: 42 0RF Rx Instructions: Partial Fill upon patient request. enoxaparin 40 mg/0.4 mL Syringe 40 mg subcut Q24H 42 Days Qty: 16.8 0RF Continued fluticasone propion-salmeterol [Advair Diskus] 250-50 mcg/dose blister with device 1 ea PO BID Qty: 60 5RF albuterol sulfate 90 mcg/actuation HFA aerosol inhaler 1 inh inhalation Q4-6H PRN (Reason: shortness of breath or wheezing) Qty: 1 0RF albuterol sulfate 2.5 mg /3 mL (0.083 %) solution for nebulization 2.5 mg inhalation Q4H PRN (Reason: shortness of breath or wheezing) Qty: 75 0RF citalopram 40 mg tablet 1 tab PO QAM hydroxyzine HCl 25 mg tablet 1 tab PO BEDTIME PRN (Reason: itch) metformin 500 mg tablet extended release 24 hr 1 tab PO QPM cyclobenzaprine 10 mg tablet 10 mg PO Q8H PRN (Reason: Muscle Spasm) zolpidem 10 mg tablet 10 mg PO BEDTIME PRN (Reason: Insomnia) lorazepam 0.5 mg tablet 0.5 mg PO BID PRN (Reason: Anxiety) furosemide 40 mg tablet 40 mg PO DAILY epinephrine 0.3 mg/0.3 mL auto-injector 0.3 mg IM Q10M PRN (Reason: Anaphylaxis) Rx Instructions: for 2 doses pantoprazole 40 mg tablet,delayed release (DR/EC) 40 mg PO DAILY docusate sodium [Colace] 100 mg capsule 100 mg PO BID montelukast 10 mg tablet 10 mg PO BEDTIME loratadine 10 mg capsule 10 mg PO DAILY fluticasone propionate [Flonase Allergy Relief] 50 mcg/actuation spray,suspension 1 spray intranasal DAILY Rx Instructions: administer into each nostril atorvastatin 40 mg tablet 40 mg PO BEDTIME thiamine HCl (vitamin B1) 100 mg tablet 100 mg PO DAILY Qty: 90 3RF multivitamin with folic acid [Daily-Royal (with folic acid)] 400 mcg tablet 1 tab PO DAILY magnesium oxide 250 mg magnesium tablet 250 mg PO DAILY cholecalciferol (vitamin D3) 50 mcg (2,000 unit) capsule 50 mcg PO DAILY cyanocobalamin (vitamin B-12) [Vitamin B-12] 1,000 mcg tablet 1,000 mcg PO DAILY Discontinued acetaminophen 500 mg tablet 1 tab PO Q8H PRN (Reason: Headache) diclofenac sodium 75 mg tablet,delayed release (DR/EC) 75 mg PO BID PRN (Reason: Pain) naproxen 500 mg tablet 500 mg PO BID PRN (Reason: pain) Qty: 14 0RF tramadol 50 mg tablet 50 mg PO DAILY Discharge Orders: Discharge Order (Routine); Ordered 09/23/22 Ordered By: Jayla Eller Diet: Regular diet Activity on Discharge: Use cane or walker Stand Alone Forms: Patient Portal Discharge page Care Plan Goals: Restore function of joint Health Concerns: none Plan of Treatment: Physical Therapy for Total knee arthroplasty: WBAT, gait training, ROM 0-12, quad strength * Limit stair climbing * No showering, no tub bath-keep dressing clean, dry and intact * No driving x6 weeks * ContinueLovenox once a day x 6 weeks * Follow up with [facility] in 2 weeks: * --you will also have your first out patient PT eval on the day of your post op appt-so please plan on being in the office that day for an extended period of time. Assessment: Physical Therapy Pain management DVT prophylaxis
--- NOTE | 2022-09-23 08:10 | W.MHC.F2F ---
Service Date Service Date: 09/23/22 Encounter Date of encounter: 09/23/22 Reasons for Services Signs and symptoms assessed: Left knee pain with ambulation, difficulty with weight bearing, poor balance. Reason for correction: other (lovenox monitoring) Reason for physical therapy: home safety and mobility, therapeutic exercises, restore joint function, gait/transfer training, ADL training and energy conservation Reason for occupational therapy: home safety and mobility, therapeutic exercises, restore joint function, gait/transfer training, ADL training and energy conservation Homebound: Leaving the home is medically contraindicated at this time without the asist of a device and/or another person due th the listed conditions above and below. Reason homebound: unsteady gait / fall risk, poor balance / fall risk, shortness of breath at rest and unable to drive Homebound supporting statement: Pt. is considered home bound due to recent surgery. Unable to drive, poor balance, poor gait mechanics. Certification: Based on the above findings, I certify that this patient is confined to the home and needs intermittent correction care, physical therapy and/or speech therapy, or continues to need occupational therapy. The patient is under my care, and I have initiated the establishment of the plan of care. The patient will be followed by a physician who will periodically review the plan of care. Time Spent With Patient Time: Total time managing care of this patient today ____ minutes.
[2022-09-23] MEDS: Fluticasone/Vilanterol 100/25 BLST.W.DEV 1 PUFF INHALE (08:23)
[2022-09-23 08:25] VITALS: PULSE 100; RESP 16
--- NOTE | 2022-09-23 08:29 | MHC.CM.PN ---
Addendum entered by Savita Wade 09/23/22 10:40: CM RECEIVED A MESSAGE FROM PTS PHYSICAL THERAPIST INDICATING PT STATED SHE DOES NOT HAVE A WALKER AT HOME CM CONTACTED ORTHO PA WHO WILL HAVE A RX SENT TO [facility] INFORMATION ADDED TO PTS DC PAPERWORK Original Note: PT WILL DC HOME TODAY WITH RESUMPTION OF HER CONFIGURATION MANAGER SERVICES AND NEW [facility]. FAMILY TO TRANSPORT
[2022-09-23] MEDS: Fluticasone Propionate Nasal 16 GM SPRAY 1 SPRAY NOSTRIL-B (08:41)
[2022-09-23] MEDS: HYDROmorphone HCl 0.5 MG/0.5 ML SYRINGE 0.25 MG IVPUSH (08:41)
[2022-09-23 09:36] VITALS: PULSE 100
[2022-09-23 11:33] LABS: Glucose, Whole Blood 143 mg/dL (60-115)
== END 2022-09-23 13:40 | disposition home health service (06) | DRG 326 ==
LOC: HO.SSSA 06:11 → HO.S3 11:34
PROVIDERS: Hospitalist; Physician Assistant; Admitting Provider Orthopaedic Surgery; PCP Internal Medicine; Visit Provider Orthopaedic Surgery
PROC: 0SRD0JA Replacement of Left Knee Joint with Synthetic Substitute, Uncemented, Open Approach (ICD-10-PCS; CPT 27447; principal; 2022-09-20 07:30)
DX: M17.12 Unilateral primary osteoarthritis, left knee (principal); E11.9 Type 2 diabetes mellitus without complications; J45.909 Unspecified asthma, uncomplicated; G89.18 Other acute postprocedural pain; E66.01 Morbid (severe) obesity due to excess calories; Z68.41 Body mass index [BMI] 40.0-44.9, adult; Z88.2 Allergy status to sulfonamides; Z79.51 Long term (current) use of inhaled steroids; Z79.84 Long term (current) use of oral hypoglycemic drugs; Z79.899 Other long term (current) drug therapy
CPT/HCPCS: 36415; 73560; 80048; 82565; 82947; 85014; 85018; 85025; 86850; 86900; 86901; 87640; 87641; 88305; 88311; 94640; 97110; 97116; 97161; 97530; C1776; J0131; J0690; J1100; J1170; J1650; J2250; J2405; J2795; J3010

== ENCOUNTER → 2022-10-06 12:08 | Outpatient (BNVA) | payer MEDICAID, SELFPAY | PROVIDERS: PCP Internal Medicine; Visit Provider Physician Assistant | DX: M17.12 Unilateral primary osteoarthritis, left knee (principal); M25.562 Pain in left knee; Z96.652 Presence of left artificial knee joint | CPT/HCPCS: 99212 ==

== ENCOUNTER → 2022-11-04 12:58 | Outpatient (BNVA) | payer MEDICAID, SELFPAY | PROVIDERS: PCP Internal Medicine; Visit Provider Physician Assistant ==

== ENCOUNTER 2022-11-14 14:00 | Outpatient (RCR) | payer MEDICAID, SELFPAY ==
--- NOTE | 2022-10-06 15:30 | MHC.PT.EP ---
[facility] Office [place] Office [place] Office [address] Jose Hyatt 140 [facility] [phone] F: [phone] F: [phone] F: [phone] F: [phone] Physical Therapy Plan of Care Date of Evaluation: Date of Surgery: 09/20/22 Diagnosis: L TKA Assessment: Ann-Marie is a 57 yo woman s/p L TKA on 09/20/22. Pt presents with impairments including decreased L knee gross ROM 0-5-96 with severe pain, impaired gross L knee strength due to pain, L knee swelling/warmth, impaired LLE balance, and impaired gait pattern. Functional limitations include impaired gait with FWW, impaired dynamic balance, difficulty with sit to stands, pain with L LE movement, and decreased activity tolerance, and decreased endurance for gait. Pt to benefit from skilled PT to address aforementioned impairments and functional limitations. Skilled PT to provide gait training, LE strengthening, LLE stretching to increase ROM, scar mobility/STM, hot/cold pack, static/dynamic standing balance, pt education, and HEP. Pt is motivated to participate in PT due to experience with prior R TKA with manipulation, pts desire to get better order to go on vacation, motivation to regain strength and ROM, and having a good support system at home. Frequency and Duration: The patient will be seen 3x week for 2 weeks, then 2x a week for 3 weeks Short Term Goals: In 2 weeks... 1. Pt will 100% return demonstrate HEP in order to improve RLE strength and ROM 2. Pt will increase L knee flexion ROM to 115 (IR 96) in order to improve functional transfers (sit to stand) [facility]ci Goals: In 5 weeks... 1. Pt will improve gross LLE strength by 1 MMT point with pain < 3/10 in order to improve activity tolerance/endurance 2. Pt will have adequate TKA scar mobility in order to allow for improved knee flexion ROM without increased pain 3. Pt will be able to ambulate with LRAD for 15 minutes with pain < 3/10 Treatment Plan: Modalities to reduce pain, spasms and effusion. Manual therapy to restore motion and function. Therapeutic exercise to improve strength and flexibility. Neuromuscular re-education for posture and balance. Therapeutic activities to return to functional activities of daily living. Electronically signed by: Sharona Carson PT Please sign and return to therapist. Thank you for your referral.
--- NOTE | 2022-11-14 15:33 | MHC.PT.DC ---
[facility] [place] Office [place] Office [place] Office [address] Jose Hyatt [address] [phone] F: [phone] F: [phone] F: [phone] F: [phone] Physical Therapy Discharge Report Diagnosis: L TKA Date of Surgery: 09/20/22 Date of Evaluation: 10/06/22 Date of Discharge: 11/14/22 Treatments to Date: 14 Cancellations to Date: 0 No Shows to Date: 0 Discharge Status: Achieved Goals Improved Function Independent with HEP Discharge Summary: Ann-Marie completed 14 PT visit. She has improved significantly and is independent with all HEP. She has achieved all goals set for her. She arrived stating her L ankle was aggravated today and requested a short and less intense therapy session. Pt tolerated bike well, and moved onto some gentle stretching and supine LE exercises to avoid continuing to irritate pts L LE. Ann-Marie is being d/c from PT today. She was in agreement with the plan. Electronically signed by: Sheila Johnson, PT DPT Please sign and return to therapist. Thank you for your referral.
== END 2022-11-14 15:34 | disposition home or self-care (01) ==
LOC: HO.PT 14:00
PROVIDERS: PCP Internal Medicine; Visit Provider Physician Assistant
DX: Z96.652 Presence of left artificial knee joint (principal)
CPT/HCPCS: 97110; 97116; 97140; 97162; 97530

== ENCOUNTER 2022-12-01 19:05 | Outpatient (REF) | payer MEDICAID, SELFPAY | END 2022-12-01 19:06 | disposition home or self-care (01) | LOC: HO.HHCLNP 19:05 | PROVIDERS: Visit Provider Student in an Organized Health Care Education/Training Program | DX: J02.9 Acute pharyngitis, unspecified (principal) | CPT/HCPCS: 87070 ==

== ENCOUNTER 2022-12-14 10:56 | Outpatient (AMB) | payer MEDICAID, SELFPAY ==
[2022-12-14 11:25] VITALS: BP 130/80; PULSE 94; O2SAT 97; BMI 38.7
--- NOTE | 2022-12-14 11:25 | MHC.OFFVIS ---
Intake Vital Signs 12/14/22 11:25 Height 5 ft 1 in Weight 205 lb BMI 38.7 BP 130/80 Blood Pressure Location Lt brachial Position Sitting Pulse 94 Pulse Source Pulse Oximeter Pulse Oximetry (%) 97 Oxygen Delivery Method Room Air Intake Visit Reasons: kaylee Intake Note: pt is here for follow up of kaylee and is using the c-pap well, only a few nights due to extreme pain in the knee post replacement just 2 months ago. Interior Design Professional Required: No Allergies sulfamethoxazole [From Bactrim] Allergy (Intermediate, Verified 12/14/22 11:51) RASH Medication List - Last Reconciled 12/14/22 by Shaylee Carrillo MD albuterol sulfate 2.5 mg (3 mL) inhalation Q4H PRN albuterol sulfate 90 mcg/actuation (Ventolin HFA) 1 puff PO Q4-6H PRN atorvastatin 40 mg PO BEDTIME celecoxib 200 mg PO BID cholecalciferol (vitamin D3) 50 mcg PO DAILY citalopram 1 tab PO QAM cyanocobalamin (vitamin B-12) (Vitamin B-12) 1,000 mcg PO DAILY cyclobenzaprine 10 mg PO Q8H PRN docusate sodium 100 mg PO BID 14 days docusate sodium (Colace) 100 mg PO BID dulaglutide (Trulicity) mg subcut QWEEK enoxaparin 40 mg (0.4 mL) subcut Q24H 42 days epinephrine 0.3 mg IM Q10M PRN fluticasone propion-salmeterol 250-50 mcg/dose (Advair Diskus) 1 ea PO BID fluticasone propionate 50 mcg/actuation (Flonase Allergy Relief) 1 spray intranasal DAILY furosemide 40 mg PO DAILY hydroxyzine HCl 1 tab PO BEDTIME PRN loratadine 10 mg PO DAILY lorazepam 0.5 mg PO BID PRN magnesium oxide 250 mg PO DAILY metformin ER 1 tab PO QPM montelukast 10 mg PO BEDTIME multivitamin with folic acid 400 mcg (Daily-Royal (with folic acid)) 1 tab PO DAILY pantoprazole 40 mg PO DAILY thiamine HCl (vitamin B1) 100 mg PO DAILY tramadol 50 mg PO walker Folding Front wheeled walker zolpidem 10 mg PO BEDTIME PRN Do you need a note to return to daycare/school/sports/work: No HPI kaylee HPI Details This 57 years old very pleasant female is here for follow-up of her sleep apnea. She has been using her CPAP very regularly ruben,ry mir t except for about 3-4 nights when it was very hot and humid. She has no issues with the CPAP mask or machine at this time and sleeps good for about 6 hours every night. She wakes up refreshed and denies any daytime sleepiness. She is still struggling to lose weight and has now been started on weekly injection of Trulicity, has already lost about 10 lb of weight. Her breathing remains well controlled except for when she has mild sore throat or common cold. She uses albuterol inhaler only p.r.n. [facility] Medical History Allergic rhinitis Arthritis Asthma Axillary hidradenitis suppurativa COPD (chronic obstructive pulmonary disease) COVID-19 vaccine administered Diabetes GERD (gastroesophageal reflux disease) Hyperlipidemia Hypersomnolence Hypertension Obesity Obesity (BMI 30-39.9) KAYLEE on CPAP Osteoarthritis of left knee Renal calculi Surgical History H/O colonoscopy H/O hemicolectomy H/O lithotripsy H/O tubal ligation History of carpal tunnel release History of esophagogastroduodenoscopy (EGD) History of salpingoophorectomy Hx of cholecystectomy Hx of cystoscopy Hx of knee surgery Hx of total knee replacement S/P laparoscopic sleeve gastrectomy Family History Mother No problems noted. Father No problems noted. Son No problems noted. Daughter No problems noted. Son No problems noted. Sister No problems noted. Sister No problems noted. Brother No problems noted. Brother No problems noted. Brother No problems noted. Brother No problems noted. 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 Review of Systems Const All systems reviewed & are unremarkable except as noted in HPI and below Eyes Reports no additional complaints ENT Reports change in voice (MILD TO MODERATE DEGREE OF HOARSENESS, HAS ENT CONSULT) Card Denies chest pain, Denies irregular heart rhythm and Denies leg edema Resp Reports as per HPI GI Reports heartburn (Controlled with med) Reports no additional complaints Musc Reports back pain and Reports myalgias Skin/Breast Reports system reviewed and no additional complaints, except as documented Neuro Reports no additional complaints Psych Reports anxiety and Reports depression Valentin/Lymph Reports no additional complaints Physical Exam Vital Signs: Last Vital Signs Pulse 94 12/14/22 11:25 BP 130/80 12/14/22 11:25 Pulse Ox 97 12/14/22 11:25 Oxygen Delivery Method Room Air 12/14/22 11:25 BMI result Body Mass Index 38.7 Const General: comfortable, no acute distress, alert and awake Orientation/consciousness: patient oriented x3 HEENT Head: Yes normal to inspection General nose exam: No nasal polyps present and No nasal discharge present Face and sinus: Yes sinuses nontender Mouth: oropharynx normal Throat: Yes posterior oropharynx normal Eyes General: appearance normal, both eyes and all related structures Neck Neck: Yes normal visual inspection, Yes no lymphadenopathy, Yes trachea midline, Yes no JVD and Yes other (Neck is short and obese, circumference 16 in.) Thyroid: Thyroid normal Chest Chest palpation & inspection: normal inspection of the chest, normal palpation of entire chest wall and no tenderness Resp Other: Breath sounds are slightly distant. Both lungs are clear with prolonged expiratory phase. No wheezes or rhonchi are heard. Cardio Palpation: normal PMI Rate: regular rate Rhythm: regular rhythm Heart sounds: no gallops and no murmurs GI Palpation (GI): Soft to palpation, nontender, No hepatosplenomegaly present, no masses and Other GI palpation findings present (Abdomen is obese and slightly protuberant) Auscultation: normal bowel sounds Back/Spine/Pelvis Thoracic/Lumbar Spine: thoracic and lumbar spine normal to inspection and thoraco-lumbar ROM limited Skin General skin exam: no rashes or lesions noted Neuro General: patient oriented x3 and no focal motor deficits Cranial nerves: Yes CN's II-XII intact bilaterally Extrem General: Yes normal to inspection, Yes no clubbing, cyanosis or edema and Yes no calf tenderness Psych Appearance: grossly normal Speech and movement: Normal speech and movement present Results Reviewed Results Reviewed: compliance report for the last 90 days is reviewed. she has used it 94% of the time. average use it per night 5 hours 17 minutes. with good results residual AHI 0.7. Assessment & Plan Assessment & Plan (1) COPD (chronic obstructive pulmonary disease): Comment: SHE HAS COMBINATION OF MILD ASTHMA, COPD AND RESTRIC.TIVE LUNG DISORDER TX: USE ALBUTEROL 2 PUFFS Q 4-6 HOURS ONLY P.R.N. Code(s): J44.9 - Chronic obstructive pulmonary disease, unspecified (2) Allergic rhinitis: Comment: CURRENTLY SHE HAS, MILD RH INITIS PROBABLY DUE T,O CHANGE IN THE WEATHER, ARE MAY BE MILD VIRAL ILLNESS. ADVISED TO CONTINUE SYMPTOMATIC TREATMENT. MAY USE ROBITUSSIN DM 2 TSP T.I.D. P.R.N. FOR COUGH, AND MAY USE OTC ANTIHISTAMINIC AGENT SUCH CLARITIN 10 MG ONCE A DAY P.R.N. Code(s): J30.9 - Allergic rhinitis, unspecified (3) KAYLEE on CPAP: Comment: SHE HAS BEEN VERY COMPLIANT WITH HER CPAP AND REPORTS NOTABLE IMPROVEMENTS IN SLEEP. ALSO ENCOURAGED TO USE HUMIDIFICATION REGULARLY. COMMENDED FOR HER GOOD COMPLIANCE AND IS ENCOURAGED TO KEEP ON USING CPAP .REGULARLY EVERY NIGHT Code(s): G47.33 - Obstructive sleep apnea (adult) (pediatric); Z99.89 - Dependence on other enabling machines and devices (4) Obesity (BMI 30-39.9): Comment: SHE REMAINS GROSSLY OBESE BUT HAS LOST ABOUT 10 .LB OF LORIE GHT SHE IS QUITE THE ENCOURAGED THAT SHE HAS BEEN STARTED ON TRULICITY INJECTIONS WHICH WOULD HELP TO LOSE MORE WEIGHT. Code(s): E66.9 - Obesity, unspecified Medications: Discontinued cyclobenzaprine 10 mg PO Q8H 14 tabs 0RF diclofenac sodium 75 mg PO BID 60 tabs 3RF Coding Level of Care Code Est Pt Level 4 (55615) Diagnoses COPD (chronic obstructive pulmonary disease) J44.9 Allergic rhinitis J30.9 KAYLEE on CPAP G47.33; Z99.89 Obesity (BMI 30-39.9) E66.9
== END 2022-12-14 11:51 | disposition home or self-care (01) ==
PROVIDERS: PCP Internal Medicine; Visit Provider Internal Medicine
DX: J44.9 Chronic obstructive pulmonary disease, unspecified (principal); J30.9 Allergic rhinitis, unspecified; G47.33 Obstructive sleep apnea (adult) (pediatric); Z99.89 Dependence on other enabling machines and devices; E66.9 Obesity, unspecified
CPT/HCPCS: 99214

== ENCOUNTER → 2022-12-14 10:56 | Outpatient (BNVA) | payer MEDICAID, SELFPAY | PROVIDERS: PCP Internal Medicine; Visit Provider Internal Medicine | DX: G47.33 Obstructive sleep apnea (adult) (pediatric) (principal); J44.9 Chronic obstructive pulmonary disease, unspecified; J30.9 Allergic rhinitis, unspecified; E66.9 Obesity, unspecified; Z99.89 Dependence on other enabling machines and devices; Z68.38 Body mass index [BMI] 38.0-38.9, adult | CPT/HCPCS: 99212 ==

== ENCOUNTER 2022-12-15 09:43 | Outpatient (REF) | payer MEDICAID, SELFPAY ==
--- NOTE | ~2022-12-15 | XR_ITS ---
EXAMINATION: XR knee standing BI, XR knee LT 2V CLINICAL INFORMATION: Reason for Exam M25.569 - Pain in unspecified knee COMPARISON: Knee radiographs 09/20/2022, 08/25/2022 TECHNIQUE: One views of the bilateral knees and 2 views of the left knee FINDINGS: RIGHT KNEE: No acute fracture or dislocation. Status post total knee arthroplasty in anatomic alignment. Previously described lucency along the patellar component suboptimally evaluated on this limited single view. Soft tissues are unremarkable. LEFT KNEE: No acute fracture or dislocation. Status post total knee arthroplasty. No evidence of hardware fracture or complication. Small suprapatellar joint effusion. Some ossification is noted lateral to the patellar component of the arthroplasty which may reflect a focus of heterotopic ossification which may be intra-articular. XR/XR knee standing BI IMPRESSION: RIGHT KNEE: Status post total knee arthroplasty in anatomic alignment. Previously described lucency along the patellar component suboptimally evaluated on this limited single view. LEFT KNEE: Status post total knee arthroplasty. No evidence of hardware fracture or complication. Small suprapatellar joint effusion. Some ossification is noted lateral to the patellar component of the arthroplasty which may reflect a focus of heterotopic ossification which may be intra-articular.
--- NOTE | ~2022-12-15 | XR_ITS ---
EXAMINATION: XR knee standing BI, XR knee LT 2V CLINICAL INFORMATION: Reason for Exam M25.569 - Pain in unspecified knee COMPARISON: Knee radiographs 09/20/2022, 08/25/2022 TECHNIQUE: One views of the bilateral knees and 2 views of the left knee FINDINGS: RIGHT KNEE: No acute fracture or dislocation. Status post total knee arthroplasty in anatomic alignment. Previously described lucency along the patellar component suboptimally evaluated on this limited single view. Soft tissues are unremarkable. LEFT KNEE: No acute fracture or dislocation. Status post total knee arthroplasty. No evidence of hardware fracture or complication. Small suprapatellar joint effusion. Some ossification is noted lateral to the patellar component of the arthroplasty which may reflect a focus of heterotopic ossification which may be intra-articular. XR/XR knee LT 2V IMPRESSION: RIGHT KNEE: Status post total knee arthroplasty in anatomic alignment. Previously described lucency along the patellar component suboptimally evaluated on this limited single view. LEFT KNEE: Status post total knee arthroplasty. No evidence of hardware fracture or complication. Small suprapatellar joint effusion. Some ossification is noted lateral to the patellar component of the arthroplasty which may reflect a focus of heterotopic ossification which may be intra-articular.
== END 2022-12-15 09:44 | disposition home or self-care (01) ==
LOC: HO.HOSX 09:43
PROVIDERS: Visit Provider Orthopaedic Surgery
DX: Z47.1 Aftercare following joint replacement surgery (principal); Z96.652 Presence of left artificial knee joint
CPT/HCPCS: 73560; 73565

== ENCOUNTER 2022-12-15 09:58 | Outpatient (AMB) | payer MEDICAID, SELFPAY ==
--- NOTE | 2022-12-15 10:28 | A.OFFVIS_ITS ---
Intake Intake Visit Reasons: PO - LT TKA 09/20/22 NE w/ XR Intake Note: Ann-Marie is a 57 year old female who presents today for a post operative left TKA, 09/20/22 NE Accompanied by: Self / Same As Patient Allergies sulfamethoxazole [From Bactrim] Allergy (Intermediate, Verified 12/15/22 10:28) RASH HPI PO - LT TKA 09/20/22 NE w/ XR HPI Details Ann-Marie Flores is a 57-year-old female who presents today to the office for a post-operative visit status post-left TKA on 09/20/22. She is doing well. She only has pain at night. She is walking comfortably. She denies fevers and chills. PFS Medical History Allergic rhinitis Arthritis Asthma Axillary hidradenitis suppurativa COPD (chronic obstructive pulmonary disease) COVID-19 vaccine administered Diabetes GERD (gastroesophageal reflux disease) Hyperlipidemia Hypersomnolence Hypertension Obesity Obesity (BMI 30-39.9) KAYLEE on CPAP Osteoarthritis of left knee Renal calculi Surgical History H/O colonoscopy H/O hemicolectomy H/O lithotripsy H/O tubal ligation History of carpal tunnel release History of esophagogastroduodenoscopy (EGD) History of salpingoophorectomy Hx of cholecystectomy Hx of cystoscopy Hx of knee surgery Hx of total knee replacement S/P laparoscopic sleeve gastrectomy S/P total knee arthroplasty (09/20/22) Family History Mother No problems noted. Father No problems noted. Son No problems noted. Daughter No problems noted. Son No problems noted. Sister No problems noted. Sister No problems noted. Brother No problems noted. Brother No problems noted. Brother No problems noted. Brother No problems noted. 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 Physical Exam Const General: no acute distress, alert and awake Orientation/consciousness: patient oriented x3 HEENT Head: Yes normocephalic and Yes atraumatic Eyes EOM: EOMs intact bilaterally Resp Effort & Inspection: normal respiratory effort and able to speak in complete sentences Cardio Jugular venous distension: no JVD Skin General skin exam: turgor normal Rashes: no rashes Neuro General: patient oriented x3 Extrem Other: Incision clean dry and intact 0-130 degrees of motion Stable to varus and valgus stress Mild gait antalgia Psych Appearance: grossly normal Affect: normal affect Attitude: cooperative Results Reviewed Results Reviewed: I personally reviewed relevant radiographs. IMPRESSION: Left total knee arthroplasty in expected post operative position with no hardware complications or evidence of loosening Assessment & Plan Assessment & Plan (1) Status post total knee replacement, left: Code(s): Z96.652 - Presence of left artificial knee joint Plan: Status post left TKA doing well. She can follow up in 3-6 months. Continue strengthening. Plan Scribed for Dr. Malik Benson by Maynor Varner, medical oncologist, on 12/15/2022. I, Dr. Malik Benson, have personally reviewed and agree with the information entered by the scribe. Orders: Orders XR knee LT 2V Today M25.569 - Pain in unspecified knee XR knee standing BI Today M25.569 - Pain in unspecified knee Medications: Discontinued cyclobenzaprine 10 mg PO Q8H 14 tabs 0RF diclofenac sodium 75 mg PO BID 60 tabs 3RF Coding Level of Care Code Global (19451) Diagnoses Status post total knee replacement, left Z96.652
== END 2022-12-15 10:58 | disposition home or self-care (01) ==
PROVIDERS: PCP Internal Medicine; Visit Provider Orthopaedic Surgery
DX: Z96.652 Presence of left artificial knee joint (principal)
CPT/HCPCS: 99024

== ENCOUNTER 2023-01-30 19:31 | Emergency (ER) | payer MEDICAID, SELFPAY ==
--- NOTE | ~2023-01-30 | CT_ITS ---
EXAMINATION: CT ABDOMEN AND PELVIS WITHOUT CONTRAST CLINICAL INFORMATION: Right flank pain. COMPARISON: Renal ultrasound dated 02/15/2022; CT abdomen and pelvis dated 11/01/2019. TECHNIQUE: Multidetector volumetric imaging was performed from the superior aspect of the liver through the pubic symphysis. Sagittal and coronal reformatted images were obtained on the technologist's workstation. This CT examination was performed using dose optimization techniques as appropriate, variously including the following: *Automated exposure control *Adjustment of mA and/or kV according to patient size (this includes techniques or standardized protocols for targeted exams where dose is matched to indication/reason for exam; i.e. extremities or head) *Use of iterative reconstruction technique DLP: 775 mGy-cm FINDINGS: LUNG BASES: The visualized lung bases are unremarkable. LIVER, GALLBLADDER, AND BILIARY TREE: The liver is normal in size, shape, and attenuation. No focal hepatic lesion or biliary ductal dilatation is present. The gallbladder is surgically absent. PANCREAS: There is mild fat stranding adjacent to the uncinate process (3:34). No focal pancreatic mass or ductal dilatation is noted. There is no acute peripancreatic fluid collection. SPLEEN: Unremarkable. ADRENAL GLANDS: Unremarkable. KIDNEYS AND URETERS: The kidneys are normal in size, shape, and attenuation. At the lower pole of the right kidney (3:35), a 5 mm nonobstructing calculus is seen. No further urinary calculus is seen, and there is no obstructive uropathy. Again, the right ureter crosses the midline, presumably inserted into the leftward urinary bladder. No perinephric stranding. BLADDER: Unremarkable. GASTROINTESTINAL TRACT: There are postoperative changes of the stomach, consistent with a prior sleeve gastrectomy. There is mild diverticulosis, without acute diverticulitis. No bowel obstruction, free intraperitoneal air or abscess is seen. There is no focal bowel wall thickening. There is a patent ileocolic anastomotic staple line. ABDOMINAL WALL: No significant hernia is appreciated. LYMPH NODES: Normal. VASCULAR: There is mild aortoiliac atherosclerotic calcification. No abdominal aortic aneurysm is seen. PELVIC VISCERA: Surgically absent. No pelvic mass, free fluid or lymphadenopathy is seen. OSSEOUS STRUCTURES: There is multi-level marked thoracic and mild lumbar spondylosis. There is no acute or aggressive osseous finding. CT/CT abdomen pelvis wo IV con IMPRESSION: 1. A 5 mm nonobstructing right renal calculus is seen. No further urinary calculus is seen, and is no obstructive uropathy noted bilaterally. 2. There is mild fat stranding adjacent to the uncinate process of the pancreas, raising the question of early pancreatitis. Recommend clinical correlation, possibly to include a serum lipase level. 3. The gallbladder and uterus are surgically absent. 4. No bowel obstruction, free intraperitoneal air or abscess is seen. There is mild diverticulosis, without acute diverticulitis. Postoperative changes are noted, as detailed. 5. There is multi-level marked thoracolumbar spondylosis. No acute or aggressive osseous finding is noted. Fleischner guidelines were followed.
--- NOTE | 2023-01-30 19:49 | ED.GENADULT ---
HPI - General Adult General Chief complaint: Abdominal Pain Stated complaint: abdominal pain Time Seen by Provider: 01/30/23 21:36 Source: patient Mode of arrival: ambulatory Limitations: no limitations History of Present Illness HPI narrative: 57-year-old female presents with right-sided abdominal pain radiating to the back. Symptoms started today. They are severe. It is not associated with nausea, vomiting, diarrhea. She denies any urinary frequency, urgency or dysuria. Symptoms are worse with movement and palpation. Patient describes her pain as sharp. She has never had this pain before. She has had multiple surgeries in the past including bowel resection, cholecystectomy, kidney surgery. Patient also describes some symptoms of dizziness earlier today. The dizziness was vertiginous. Worse with head movement. The symptoms have since abated. There has been no prior treatment earlier today. Related Data Home Medications Medication Instructions Recorded Confirmed atorvastatin 40 mg tablet 40 mg PO BEDTIME 02/27/20 12/14/22 docusate sodium 100 mg capsule 100 mg PO BID 02/27/20 12/14/22 (Colace) epinephrine 0.3 mg/0.3 mL 0.3 mg IM Q10M PRN Anaphylaxis 02/27/20 12/14/22 injection, auto-injector fluticasone propionate 50 1 spray intranasal DAILY 02/27/20 12/14/22 mcg/actuation nasal spray,suspension (Flonase Allergy Relief) furosemide 40 mg tablet 40 mg PO DAILY 02/27/20 12/14/22 loratadine 10 mg capsule 10 mg PO DAILY 02/27/20 12/14/22 lorazepam 0.5 mg tablet 0.5 mg PO BID PRN Anxiety 02/27/20 12/14/22 montelukast 10 mg tablet 10 mg PO BEDTIME 02/27/20 12/14/22 pantoprazole 40 mg tablet,delayed 40 mg PO DAILY 02/27/20 12/14/22 release zolpidem 10 mg tablet 10 mg PO BEDTIME PRN Insomnia 02/27/20 12/14/22 citalopram 40 mg tablet 1 tab PO QAM 11/05/20 12/14/22 hydroxyzine HCl 25 mg tablet 1 tab PO BEDTIME PRN itch 11/05/20 12/14/22 metformin 500 mg tablet,extended 1 tab PO QPM 07/08/21 08/16/23 release 24 hr cholecalciferol (vitamin D3) 50 50 mcg PO DAILY 08/17/22 12/14/22 mcg (2,000 unit) capsule cyanocobalamin (vitamin B-12) 1,000 mcg PO DAILY 08/17/22 12/14/22 1,000 mcg tablet (Vitamin B-12) magnesium oxide 250 mg PO DAILY 08/17/22 12/14/22 multivitamin with folic acid 400 1 tab PO DAILY 08/17/22 12/14/22 mcg tablet (Daily-Royal (with folic acid)) cyclobenzaprine 10 mg tablet 10 mg PO Q8H PRN Muscle Spasm 09/20/22 12/14/22 dulaglutide 0.75 mg/0.5 mL mg subcut QWEEK 12/14/22 12/14/22 subcutaneous pen injector ([facility]) tramadol 50 mg tablet 50 mg PO severe pain 12/14/22 12/14/22 Previous Rx's Medication Instructions Recorded albuterol sulfate 2.5 mg/3 mL 2.5 mg (3 mL) inhalation Q4H PRN 10/30/20 (0.083 %) solution for nebulization shortness of breath or wheezing #75 mL thiamine HCl (vitamin B1) 100 mg 100 mg PO DAILY #90 tabs 06/07/22 tablet fluticasone 250 mcg-salmeterol 50 1 ea PO BID #60 ea 06/21/22 mcg/dose blistr powdr for inhalation (Advair Diskus) docusate sodium 100 mg capsule 100 mg PO BID 14 days #28 caps 09/22/22 enoxaparin 40 mg/0.4 mL 40 mg (0.4 mL) subcut Q24H 42 days 09/22/22 subcutaneous syringe #16.8 mL walker #1 ea 09/23/22 albuterol sulfate 90 mcg/actuation 1 puff PO Q4-6H PRN for wheezing 11/07/22 aerosol inhaler (Ventolin HFA) #18 ea celecoxib 200 mg capsule 200 mg PO BID #60 caps 11/17/22 cyclobenzaprine 10 mg tablet 10 mg PO TID PRN muscle spasm #10 01/30/23 tabs oxycodone 5 mg tablet 5 mg PO Q8H PRN pain #10 tabs 01/30/23 Allergies Allergy/AdvReac Type Severity Reaction Status Date / Time sulfamethoxazole Allergy Intermediate RASH Verified 12/15/22 10:28 [From Bactrim] Review of Systems Review of Systems: CONSTITUTIONAL: Denies weight loss, fever and chills. HEENT: Denies changes in vision and hearing. RESPIRATORY: Denies SOB and cough. CV: Denies palpitations no CP. GI: + abdominal pain,- nausea, vomiting and diarrhea. : Denies dysuria and urinary frequency. MSK: Denies myalgia and joint pain. SKIN: Denies rash and pruritus. NEUROLOGICAL: Denies headache and syncope. PSYCHIATRIC: Denies recent changes in mood. Denies anxiety and depression. All other ROS are negative unless in HPI PMFSH Past Medical History Medical History Allergic rhinitis Arthritis Asthma Axillary hidradenitis suppurativa COPD (chronic obstructive pulmonary disease) COVID-19 vaccine administered Diabetes GERD (gastroesophageal reflux disease) Hyperlipidemia Hypersomnolence Hypertension Obesity Obesity (BMI 30-39.9) KAYLEE on CPAP Osteoarthritis of left knee Renal calculi Surgical History H/O colonoscopy H/O hemicolectomy H/O lithotripsy H/O tubal ligation History of carpal tunnel release History of esophagogastroduodenoscopy (EGD) History of salpingoophorectomy Hx of cholecystectomy Hx of cystoscopy Hx of knee surgery Hx of total knee replacement S/P laparoscopic sleeve gastrectomy S/P total knee arthroplasty (09/20/22) Family History Family History Mother No problems noted. Father No problems noted. Son No problems noted. Daughter No problems noted. Son No problems noted. Sister No problems noted. Sister No problems noted. Brother No problems noted. Brother No problems noted. Brother No problems noted. Brother No problems noted. 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 Physical Exam ED Vital Signs: Vital Signs - 24 hr 01/30/23 19:53 01/30/23 21:44 Temperature 98.0 F 98.5 F Pulse Rate 90 89 Respiratory Rate 16 18 Blood Pressure 137/72 118/78 Pulse Oximetry 98 98 Oxygen Delivery Method Room Air Room Air BMI result Body Mass Index 40.1 GEN: Well developed, + acute distress, alert, oriented HEENT: Normocephalic, atraumatic, normal external ears, nose appears normal, no oropharyngeal edema or exudates Eyes: Normal to appearance Neck: Supple, no lymphadenopathy Respiratory: Talks in complete sentences, no respiratory distress, clear to auscultation bilaterally Cardiovascular: Regular rate and rhythm, no murmurs rubs or gallops Abdomen: Soft, right-sided abdominal tenderness, nondistended, no guarding, no rebound Back: No CVA tenderness Extremities: No clubbing cyanosis or edema Neurologic: No focal neurologic deficits, cranial nerves 2-12 intact, strength is 5/5 bilaterally Skin: No rash no radicular rash. Course Course Course Narrative: This is an RME: Additional HPI, ROS, PE not included below will be deferred to primary provider. This is a [id number], with a hx of kidney stones, asthma, COPD, diabetes, GERD, HLD, HTN, presenting to the emergency department with a complaints of right flank pain x 4 days. Reports pain has been progressively worsening since its onset. Reports that she has had subjective fevers. Hx of kidney stones, sxs feel similar. No nausea, vomiting, diarrhea. No urinary symptoms. +CVA tenderness, + right flank TTP on examination Plan: CT abd, labs, UA ordered Reevaluation(s) Reevaluation #1: Patient received Toradol and oxycodone for pain at this time. Time: 21:45 Reevaluation #2: Patient's pain is mild to moderately improved. She is still uncomfortable. Her exam at this point almost seems more radicular versus musculoskeletal in nature. Abdomen is benign. Will provide patient with a muscle relaxer and have her follow-up with her primary care provider. Time: 23:37 Medications Administered Discontinued Medications Generic Name Dose Route Start Last Admin Trade Name Marcial PRN Reason Stop Dose Admin Ketorolac Tromethamine 30 mg 01/30/23 21:42 01/30/23 21:51 Ketorolac Tromethamine 30 Mg/Ml Vial IM 01/30/23 21:43 30 mg ONCE ONE Administration Oxycodone HCl 5 mg 01/30/23 21:42 01/30/23 21:51 Oxycodone Hcl Immed Release 5 Mg Tablet PO 01/30/23 21:43 5 mg ONCE ONE Administration Medical Decision Making Medical Decision Making [facility] Narrative: Patient presents with right-sided abdominal pain, right flank pain. Differential diagnosis includes kidney stone, UTI, pyelonephritis, musculoskeletal, radiculopathy, shingles, diverticulitis, colitis, mesenteric adenitis, appendicitis. Patient will have a CT scan the abdomen pelvis. Will order routine laboratory analysis including urinalysis. Will provide patient with analgesia. Disposition pending further workup. Patient may warrant further evaluation and hospitalization. Differential Diagnosis Differential Diagnoses: The differential diagnosis associated with the presentation includes (See above) Admission/Observation Consideration of admission/observation: Escalation of care including admission/observation considered Lab Data [facility] Lab Attestation statement: I reviewed the patient's lab results. 01/30/23 20:07 01/30/23 20:07 Labs: Lab Results 01/30/23 01/30/23 Range/Units 20:07 20:13 WBC 9.8 (4.8-10.8) X10*3/uL RBC 4.69 D (4.20-5.50) X10*6/uL Hgb 12.0 D (12.0-16.0) g/dl Hct 37.5 D (37.0-47.0) % MCV 80.0 (80.0-98.0) fL MCH 25.6 L (27.0-33.0) pg MCHC 32.0 (31.0-35.0) g/dl RDW 15.9 (11.0-16.0) % Plt Count 340 D (160-400) X10*3/uL MPV 10.5 (9.4-12.3) fL Immature Gran % (Auto) 0.2 (0.0-0.4) % Neut % (Auto) 65.8 (45-73) % Lymph % (Auto) 23.9 (20-40) % [place] % (Auto) 8.9 (2-11) % Eos % (Auto) 0.9 (0-4) % Baso % (Auto) 0.3 (0-2) % Lymph # (Auto) 2.3 (1.2-4.9) X10*3/uL [place] # (Auto) 0.9 (0.1-1.2) X10*3/uL Eos # (Auto) 0.1 (0.0-0.4) X10*3/uL Baso # (Auto) 0.0 (0.0-0.2) X10*3/uL Abs Immat Gran (auto) 0.02 (0.00-0.03) X10*3/uL Absolute Neuts (auto) 6.4 (2.0-8.3) x10*3/uL Absolute Nucleated RBC 0.000 (0.0-0.012) X10*3/uL Nucleated RBC % (auto) 0.0 (0.0-0.2) /100WBC Sodium 141 (135-145) mmol/L Potassium 3.1 L D (3.3-5.1) mmol/L Chloride 105 (96-108) mmol/L Carbon Dioxide 24 (22-29) mmol/L Anion Gap 15 (12-20) BUN 15 (9-16) mg/dL Creatinine 1.08 (0.5-1.4) mg/dL Estim Creat Clear Calc 59.5 Estimated GFR 52 POC Glucose 118 H (60-115) mg/dL Random Glucose 112 (60-115) mg/dL Calcium 9.0 (8.4-10.2) mg/dL Total Bilirubin 0.3 (0.0-1.0) mg/dL Direct Bilirubin 0.1 (0.0-0.5) mg/dL AST 24 (5-31) U/L ALT 21 (0-31) U/L Alkaline Phosphatase 125 H (39-117) U/L Total Protein 7.7 (6.5-8.0) g/dL Albumin 3.9 (3.5-5.0) g/dL Lipase 42 (8-78) U/L Urine Color Yellow Urine Appearance Hazy Urine pH 6.0 (5.0-9.0) Ur Specific [place] 1.015 (1.005-1.025) Urine Protein Negative (Neg-Trace) mg/dL Urine Glucose (UA) Negative (Negative) mg/dL Urine Ketones Trace (Negative) mg/dL Urine Blood Negative (Negative) Urine Nitrite Negative (Negative) Ur Leukocyte Esterase Small (1+) H (Negative) Urine RBC 0-2 (0-2) /HPF Urine WBC 0-5 (0-5) /HPF Ur Squamous Epith Cells 0-2 (0-2) /HPF Urine Bacteria None Seen (None Seen) Hyaline Casts 0-2 (0-2) /LPF Independent Interpretation I performed an independent interpretation of an: CT Scan (Abd/Pelvis: NAD) Radiology Impression Discussion of test interpretation with radiology: I have reviewed the radiologist's reading. Radiologist Impression: CT/CT abdomen pelvis wo IV con IMPRESSION: 1. A 5 mm nonobstructing right renal calculus is seen. No further urinary calculus is seen, and is no obstructive uropathy noted bilaterally. 2. There is mild fat stranding adjacent to the uncinate process of the pancreas, raising the question of early pancreatitis. Recommend clinical correlation, possibly to include a serum lipase level. 3. The gallbladder and uterus are surgically absent. 4. No bowel obstruction, free intraperitoneal air or abscess is seen. There is mild diverticulosis, without acute diverticulitis. Postoperative changes are noted, as detailed. 5. There is multi-level marked thoracolumbar spondylosis. No acute or aggressive osseous finding is noted. Fleischner guidelines were followed. Dictated By: Jean Carlos Pete MD Signed By: <Electronically signed by Jean Carlos Pete MD in OV> 01/30/23 9609 Prescription Management I considered prescription management with: Pain Medication and Antibiotic Chronic Conditions Patient?s care impacted by: Diabetes and Hypertension Discharge Plan Discharge Clinical Impression: Abdominal pain, Back pain Patient Disposition: Home, Self-Care Instructions: Abdominal Pain (ED), Back Pain (ED) Prescriptions: New oxycodone 5 mg tablet 5 mg PO Q8H PRN (Reason: pain) Qty: 10 0RF Rx Instructions: Partial Fill upon patient request. cyclobenzaprine 10 mg tablet 10 mg PO TID PRN (Reason: muscle spasm) Qty: 10 0RF No Action fluticasone propion-salmeterol [Advair Diskus] 250-50 mcg/dose blister with device 1 ea PO BID Qty: 60 5RF (DME) walker Misc See Rx Instructions .MEDSUPPLY Qty: 1 0RF Rx Instructions: Folding Front wheeled walker albuterol sulfate [Ventolin HFA] 90 mcg/actuation HFA aerosol inhaler 1 puff PO Q4-6H PRN (Reason: for wheezing) Qty: 18 0RF celecoxib 200 mg capsule 200 mg PO BID Qty: 60 3RF albuterol sulfate 2.5 mg /3 mL (0.083 %) solution for nebulization 2.5 mg inhalation Q4H PRN (Reason: shortness of breath or wheezing) Qty: 75 0RF citalopram 40 mg tablet 1 tab PO QAM hydroxyzine HCl 25 mg tablet 1 tab PO BEDTIME PRN (Reason: itch) metformin 500 mg tablet extended release 24 hr 1 tab PO QPM cyclobenzaprine 10 mg tablet 10 mg PO Q8H PRN (Reason: Muscle Spasm) docusate sodium 100 mg Capsule 100 mg PO BID 14 Days Qty: 28 0RF enoxaparin 40 mg/0.4 mL Syringe 40 mg subcut Q24H 42 Days Qty: 16.8 0RF zolpidem 10 mg tablet 10 mg PO BEDTIME PRN (Reason: Insomnia) lorazepam 0.5 mg tablet 0.5 mg PO BID PRN (Reason: Anxiety) furosemide 40 mg tablet 40 mg PO DAILY epinephrine 0.3 mg/0.3 mL auto-injector 0.3 mg IM Q10M PRN (Reason: Anaphylaxis) Rx Instructions: for 2 doses pantoprazole 40 mg tablet,delayed release (DR/EC) 40 mg PO DAILY docusate sodium [Colace] 100 mg capsule 100 mg PO BID montelukast 10 mg tablet 10 mg PO BEDTIME loratadine 10 mg capsule 10 mg PO DAILY fluticasone propionate [Flonase Allergy Relief] 50 mcg/actuation spray,suspension 1 spray intranasal DAILY Rx Instructions: administer into each nostril atorvastatin 40 mg tablet 40 mg PO BEDTIME thiamine HCl (vitamin B1) 100 mg tablet 100 mg PO DAILY Qty: 90 3RF multivitamin with folic acid [Daily-Royal (with folic acid)] 400 mcg tablet 1 tab PO DAILY magnesium oxide 250 mg magnesium tablet 250 mg PO DAILY cholecalciferol (vitamin D3) 50 mcg (2,000 unit) capsule 50 mcg PO DAILY cyanocobalamin (vitamin B-12) [Vitamin B-12] 1,000 mcg tablet 1,000 mcg PO DAILY tramadol 50 mg tablet 50 mg PO Trulicity 0.75 mg/0.5 mL pen injector subcut QWEEK Referrals: Leelee Yanes MD [Primary Care Provider] - 3 days
[2023-01-30 19:53] VITALS: BP 137/72; PULSE 90; RESP 16; TEMP 36.7; O2SAT 98; BMI 40.1
[2023-01-30 20:12] LABS: MANUAL DIFF FLAG NO
[2023-01-30 20:14] LABS: Basophils Percent Auto 0.3 % (0-2); Eosinophils Absolute Auto 0.1 X10*3/uL (0.0-0.4); Eosinophils Percent Auto 0.9 % (0-4); Hematocrit 37.5 % (37.0-47.0); Imm Gran Abs Auto 0.02 X10*3/uL (0.00-0.03); Imm Gran Pct Auto 0.2 % (0.0-0.4); Lymphocytes Absolute Auto 2.3 X10*3/uL (1.2-4.9); Lymphocytes Percent Auto 23.9 % (20-40); Mean Corpuscular Hemoglobin 25.6 pg (27.0-33.0); Mean Platelet Volume 10.5 fL (9.4-12.3); Monocytes Absolute Auto 0.9 X10*3/uL (0.1-1.2); Monocytes Percent Auto 8.9 % (2-11); Neutrophils Absolute Auto 6.4 x10*3/uL (2.0-8.3); Neutrophils Percent Auto 65.8 % (45-73); Platelet Count 340 X10*3/uL (160-400); Red Blood Count 4.69 X10*6/uL (4.20-5.50); Red Cell Distribution Width 15.9 % (11.0-16.0); White Blood Count 9.8 X10*3/uL (4.8-10.8)
[2023-01-30 20:16] LABS: Glucose, Whole Blood 118 mg/dL (60-115)
[2023-01-30 20:28] LABS: Appearance Urine Hazy; Color Urine Yellow; Glucose Urine UA Negative (Negative); Leukocyte Esterase Urine Small (1+) (Negative); Nitrite Urine Negative (Negative); Specific Gravity - Urine 1.015 (1.005-1.025); UMIC TRIGGER UACC YES; Urine Blood Negative (Negative); Urine Ketones Trace mg/dL (Negative); Urine Protein Negative (Neg-Trace)
[2023-01-30 20:32] LABS: Alanine Aminotransferase 21 U/L (0-31); Albumin Level 3.9 g/dL (3.5-5.0); Alkaline Phosphatase 125 U/L (39-117); Anion Gap 15 (12-20); Aspartate Amino Transferase 24 U/L (5-31); Bilirubin Direct 0.1 mg/dL (0.0-0.5); Bilirubin Total 0.3 mg/dL (0.0-1.0); Blood Urea Nitrogen 15 mg/dL (9-16); Carbon Dioxide 24 mmol/L (22-29); Chloride 105 mmol/L (96-108); Creatinine Clr Calc Pharmacy 59.5; Estimated Glomerular Filt Rate 52; Glucose Random 112 mg/dL (60-115); Lipase 42 U/L (8-78); Potassium 3.1 mmol/L (3.3-5.1); Sodium 141 mmol/L (135-145); Total Protein 7.7 g/dL (6.5-8.0)
[2023-01-30 20:34] LABS: Bacteria Urine None Seen (None Seen); Hyaline Casts Urine 0-2 /LPF (0-2); RBC Urine 0-2 /HPF (0-2); Squamous Epithelial Cell Urine 0-2 /HPF (0-2); UACC Culture Trigger YES; WBC Urine 0-5 /HPF (0-5)
[2023-01-30 21:44] VITALS: BP 118/78; PULSE 89; RESP 18; TEMP 36.9; O2SAT 98
--- NOTE | 2023-01-30 21:48 | MHC.EDTECH ---
Hourly rounds and vitals completed,and call garcía within reach
[2023-01-30] MEDS: Ketorolac Tromethamine 30 MG/ML VIAL IM (21:51)
[2023-01-30] MEDS: oxyCODONE HCl Immed Release 5 MG TABLET PO (21:51)
[2023-01-30 23:52] VITALS: BP 116/76; PULSE 84; RESP 18; TEMP 36.6; O2SAT 99
--- NOTE | 2023-01-30 23:52 | MHC.EDTECH ---
Hourly rounds and vitals completed, Patient is being discharged and is awaiting papers at this time.
[2023-01-31] MEDS: Cyclobenzaprine HCl 10 MG TABLET PO
== END 2023-01-31 00:05 | disposition home or self-care (01) ==
PROVIDERS: Physician Assistant Medical; Emergency Provider Emergency Medicine; PCP Internal Medicine
DX: R10.31 Right lower quadrant pain (principal); M54.50 Low back pain, unspecified; Z79.899 Other long term (current) drug therapy
CPT/HCPCS: 36415; 74176; 80048; 80076; 81001; 82947; 83690; 85025; 87086; 96372; 99284; J1885

== ENCOUNTER 2023-01-31 22:37 | Emergency (ER) | payer MEDICAID, SELFPAY ==
[2023-01-31 22:59] VITALS: BP 144/90; PULSE 113; RESP 16; TEMP 37.1; O2SAT 99; BMI 39.7
== END 2023-02-01 00:50 | disposition left against medical advice (07) ==
PROVIDERS: Emergency Provider Emergency Medicine; PCP Internal Medicine
DX: R33.9 Retention of urine, unspecified (principal); R11.2 Nausea with vomiting, unspecified
CPT/HCPCS: 99281

== ENCOUNTER 2023-02-07 09:38 | Outpatient (REF) | payer MEDICAID, SELFPAY | END 2023-02-07 09:39 | disposition home or self-care (01) | LOC: HO.HHCL 09:38 | PROVIDERS: Visit Provider Internal Medicine | DX: R10.13 Epigastric pain (principal) | CPT/HCPCS: 36415; 82150; 83690 ==

== ENCOUNTER 2023-02-09 09:54 | Outpatient (REF) | payer MEDICAID, SELFPAY | END 2023-02-09 09:55 | disposition home or self-care (01) | LOC: HO.HHCLNP 09:54 | PROVIDERS: Visit Provider Internal Medicine | DX: R10.13 Epigastric pain (principal) | CPT/HCPCS: 87338 ==

== ENCOUNTER 2023-03-07 10:02 | Outpatient (REF) | payer MEDICAID, SELFPAY ==
--- NOTE | ~2023-03-07 | US_ITS ---
EXAMINATION: US RETROPERITONEAL LIMITED (RENAL ONLY) CLINICAL INFORMATION: Calculus of kidney. COMPARISON: CT abdomen and pelvis 01/30/2023. Renal ultrasound 02/15/2022 and 06/28/2021. X-ray abdomen KUB 01/03/2018. TECHNIQUE: Real-time imaging of the kidneys. FINDINGS: RIGHT KIDNEY: 10.7 x 5.5 x 5.3 cm (SAG x AP x TRV). The kidney is normal in size, contour, and echogenicity. Renal cortical thickness is normal. No calculi or focal parenchymal lesions. No hydronephrosis. LEFT KIDNEY: 10.1 x 5.1 x 5.1 cm (SAG x AP x TRV). The kidney is normal in size, contour, and echogenicity. Renal cortical thickness is normal. No calculi or focal parenchymal lesions. No hydronephrosis. US/US renal BI IMPRESSION: Unremarkable kidneys
== END 2023-03-07 10:03 | disposition home or self-care (01) ==
LOC: HO.US 10:02
PROVIDERS: PCP Internal Medicine; Visit Provider Urology
DX: N20.0 Calculus of kidney (principal)
CPT/HCPCS: 76775

== ENCOUNTER 2023-03-17 08:24 | Outpatient (REF) | payer MEDICAID, SELFPAY ==
--- NOTE | ~2023-03-17 | XR_ITS ---
EXAMINATION: XR KNEE, LEFT XR KNEE AP STANDING CLINICAL INFORMATION: Pain. COMPARISON: Radiographs dated 12/15/2022. TECHNIQUE: Four views of the left knee. AP bilateral standing view of the knees was obtained. FINDINGS: Prosthetic components of the bilateral total knee arthroplasties are appropriately aligned without periprosthetic fracture or abnormal lucency. No component migration. No joint effusion. XR/XR knee standing BI IMPRESSION: Appropriate alignment of the bilateral total knee arthroplasties, without evidence of complications.
--- NOTE | ~2023-03-17 | XR_ITS ---
EXAMINATION: XR KNEE, LEFT XR KNEE AP STANDING CLINICAL INFORMATION: Pain. COMPARISON: Radiographs dated 12/15/2022. TECHNIQUE: Four views of the left knee. AP bilateral standing view of the knees was obtained. FINDINGS: Prosthetic components of the bilateral total knee arthroplasties are appropriately aligned without periprosthetic fracture or abnormal lucency. No component migration. No joint effusion. XR/XR knee LT 2V IMPRESSION: Appropriate alignment of the bilateral total knee arthroplasties, without evidence of complications.
== END 2023-03-17 08:25 | disposition home or self-care (01) ==
LOC: HO.HOSX 08:24
PROVIDERS: Visit Provider Orthopaedic Surgery
DX: T84.84XD Pain due to internal orthopedic prosthetic devices, implants and grafts, subsequent encounter (principal); Z96.652 Presence of left artificial knee joint; M25.561 Pain in right knee
CPT/HCPCS: 73560; 73565; 99212

== ENCOUNTER 2023-03-17 10:02 | Outpatient (AMB) | payer MEDICAID, SELFPAY ==
--- NOTE | 2023-03-17 10:38 | A.OFFVIS_ITS ---
Intake Intake Visit Reasons: PO - LT TKA 09/20/22 NE w/ XR Intake Note: Ann-Marie is a 57 year old female who presents today for a follow up of her left knee s/p LT TKA 09/20/22 . Pateint reports that she is doing a little beetter but she is still having pain.she has some remaining swelling. Allergies sulfamethoxazole [From Bactrim] Allergy (Intermediate, Verified 03/20/23 11:19) RASH HPI PO - LT TKA 09/20/22 NE w/ XR HPI Details Ann-Marie is a 57 year old woman ~6 months S/P left TKA. She says she continues to have pain with activity, that has only improved slightly since her last appointment. At her last appointment she reported only having pain at night. [facility] Medical History Osteoarthritis of left knee Hypersomnolence Renal calculi Diabetes COVID-19 vaccine administered COPD (chronic obstructive pulmonary disease) Allergic rhinitis KAYLEE on CPAP Obesity (BMI 30-39.9) Obesity Axillary hidradenitis suppurativa GERD (gastroesophageal reflux disease) Asthma Arthritis Hypertension Hyperlipidemia Surgical History S/P total knee arthroplasty (09/20/22) History of carpal tunnel release Hx of knee surgery Hx of cystoscopy History of esophagogastroduodenoscopy (EGD) H/O colonoscopy Hx of total knee replacement History of salpingoophorectomy H/O lithotripsy H/O hemicolectomy H/O tubal ligation Hx of cholecystectomy S/P laparoscopic sleeve gastrectomy Family History Mother No problems noted. Father No problems noted. Son No problems noted. Daughter No problems noted. Son No problems noted. Sister No problems noted. Sister No problems noted. Brother No problems noted. Brother No problems noted. Brother No problems noted. Brother No problems noted. 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 Review of Systems Const All systems reviewed & are unremarkable except as noted in HPI and below Physical Exam Const General: no acute distress, alert and awake Orientation/consciousness: patient oriented x3 HEENT Head: Yes normocephalic and Yes atraumatic Eyes EOM: EOMs intact bilaterally Resp Effort & Inspection: normal respiratory effort and able to speak in complete sentences Cardio Jugular venous distension: no JVD Skin General skin exam: turgor normal Rashes: no rashes Neuro General: patient oriented x3 Extrem Other: Incision clean dry and intact 0-130 degrees of motion Stable to varus and valgus stress Mild gait antalgia Psych Appearance: grossly normal Affect: normal affect Attitude: cooperative Results Reviewed Results Reviewed: I personally reviewed relevant radiographs. IMPRESSION: Left total knee arthroplasty in expected post operative position with no hardware complications or evidence of loosening Assessment & Plan Assessment & Plan (1) Status post total knee replacement, left: Code(s): Z96.652 - Presence of left artificial knee joint Plan: This is a 57 year old woman S/P left TKA, DOS: 09/20/22. She reports having pain with stairs and at night with continued improvement since her last appointment. I recommend she continue to work on strengthening and remaining active as tolerated. She requested a note to bring to the airport before she travels, which was provided. She will follow up in 6 months, prn. Discussed dental prophylaxis. Orders: Orders XR knee standing BI 03/17/23 M25.569 - Pain in unspecified knee XR knee LT 2V 03/17/23 M25.569 - Pain in unspecified knee Coding Level of Care Code Est Pt Level 3 (57922) Diagnoses Status post total knee replacement, left Z96.652
== END 2023-03-17 11:03 | disposition home or self-care (01) ==
PROVIDERS: PCP Internal Medicine; Visit Provider Orthopaedic Surgery
DX: M25.562 Pain in left knee (principal); Z96.652 Presence of left artificial knee joint
CPT/HCPCS: 99213

== ENCOUNTER 2023-03-20 11:00 | Outpatient (AMB) | payer MEDICAID, SELFPAY ==
--- NOTE | 2023-03-20 11:13 | A.OFFVIS_ITS ---
Intake Intake Visit Reasons: follow up hx stones with US (SET) Intake Note: Patient is Present for Follow Up Urology Medication: None Antibiotic Allergies: Sulfa Blood Thinners: None Allergies sulfamethoxazole [From Bactrim] Allergy (Intermediate, Verified 04/10/23 10:07) RASH HPI HPI Comments History of Present Illness Details 57 year old female with history of kidne y stones here for follow up. I have reviewed CT Abd/pelvis and renal US. On CT A 5 mm nonobstructing right renal calculus is seen. No further urinary calculus is seen. However renal US does not document renal calcifications. I have discussed at length diet modification to decrease risk of forming more kidney stones. I have discussed low oxalate diet and specific foods to avoid including certain green leafy vegetables, chocalate, nuts, tea, beets, rubarb; low sodium, decreased use of animal protein and the importance of hydration drinking up to 2-2.5 liters of fluids and use of adding lemon to water to increase citrate in the diet. A pamphlet is also provided today. Plan: Cont to monitor kidneys. Cont Diet management, Adequate water intake. [facility] Medical History Osteoarthritis of left knee Hypersomnolence Renal calculi Diabetes COVID-19 vaccine administered COPD (chronic obstructive pulmonary disease) Allergic rhinitis KAYLEE on CPAP Obesity (BMI 30-39.9) Obesity Axillary hidradenitis suppurativa GERD (gastroesophageal reflux disease) Asthma Arthritis Hypertension Hyperlipidemia Surgical History S/P total knee arthroplasty (09/20/22) History of carpal tunnel release Hx of knee surgery Hx of cystoscopy History of esophagogastroduodenoscopy (EGD) H/O colonoscopy Hx of total knee replacement History of salpingoophorectomy H/O lithotripsy H/O hemicolectomy H/O tubal ligation Hx of cholecystectomy S/P laparoscopic sleeve gastrectomy Family History Mother No problems noted. Father No problems noted. Son No problems noted. Daughter No problems noted. Son No problems noted. Sister No problems noted. Sister No problems noted. Brother No problems noted. Brother No problems noted. Brother No problems noted. Brother No problems noted. 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 Review of Systems Const All systems reviewed & are unremarkable except as noted in HPI and below Reports no additional complaints Eyes Reports no additional complaints ENT Reports no additional complaints Card Denies dyspnea Resp Denies cough and Denies dyspnea GI Reports no additional complaints Reports no additional complaints Musc Reports no additional complaints Skin/Breast Denies rash and Denies unusual bruising Neuro Reports no additional complaints Psych Reports no additional complaints Endo Reports no additional complaints Valentin/Lymph Reports no additional complaints Aller/Immun Reports no additional complaints Results AMB Urinalysis, Automated UA Leukoctes 15 Cliff/uL Last Edit by Marbella Petersen [facility] on 03/20/23 11:29 UA Nitrite Negative Last Edit by Marbella Petersen [facility] on 03/20/23 11:29 UA Urobilinogen 0.2 mg/dL Last Edit by Marbella Petersen [facility] on 03/20/23 11:2 9 UA Protein 30 mg/dL Last Edit by Marbella Petersen [facility] on 03/20/23 11:29 UA pH 6.0 Last Edit by Marbella Petersen [facility] on 03/20/23 11:29 UA Blood 0 Booker/uL Last Edit by Marbella Petersen [facility] on 03/20/23 11:29 UA Specific Lytle 1.015 Last Edit by Marbella Petersen [facility] on 03/20/23 11: 29 UA Ketone Positive Last Edit by Marbella Petersen [facility] on 03/20/23 11:29 UA Bilirubin 1 mg/dL Last Edit by Marbella Petersen [facility] on 03/20/23 11:29 UA Glucose 0 mg/dL Last Edit by Marbella Petersen [facility] on 03/20/23 11:29 Results Reviewed Results Reviewed: Laboratory Last Values Urine pH (Auto) 6.0 03/20/23 11:20 Specific Lytle (Auto) 1.015 03/20/23 11:20 Urine Protein (Auto) 30 mg/dL 03/20/23 11:20 Glucose (UA)(Auto) 0 mg/dL 03/20/23 11:20 Urine Ketones (Auto) Positive 03/20/23 11:20 Urine Blood (Auto) 0 Booker/uL 03/20/23 11:20 Urine Nitrite (Auto) Negative 03/20/23 11:20 Urine Bilirubin (Auto) 1 mg/dL 03/20/23 11:20 Urine Urobilinogen (Auto) 0.2 mg/dL 03/20/23 11:20 Leukocyte Esterase (Auto) 15 Cliff/uL 03/20/23 11:20 Date of Service: 03/07/23 EXAMINATION: US RETROPERITONEAL LIMITED (RENAL ONLY) CLINICAL INFORMATION: Calculus of kidney. COMPARISON: CT abdomen and pelvis 01/30/2023. Renal ultrasound 02/15/2022 and 06/28/2021. X-ray abdomen KUB 01/03/2018. TECHNIQUE: Real-time imaging of the kidneys. FINDINGS: RIGHT KIDNEY: 10.7 x 5.5 x 5.3 cm (SAG x AP x TRV). The kidney is normal in size, contour, and echogenicity. Renal cortical thickness is normal. No calculi or focal parenchymal lesions. No hydronephrosis. LEFT KIDNEY: 10.1 x 5.1 x 5.1 cm (SAG x AP x TRV). The kidney is normal in size, contour, and echogenicity. Renal cortical thickness is normal. No calculi or focal parenchymal lesions. No hydronephrosis. IMPRESSION: Unremarkable kidneys Date of Service: 01/30/23 Procedure(s): CT abdomen pelvis wo IV con Accession Number(s): [id number] cc: Leelee Yanes MD; Parris Dietrich~ EXAMINATION: CT ABDOMEN AND PELVIS WITHOUT CONTRAST CLINICAL INFORMATION: Right flank pain. COMPARISON: Renal ultrasound dated 02/15/2022; CT abdomen and pelvis dated 11/01/2019. TECHNIQUE: Multidetector volumetric imaging was performed from the superior aspect of the liver through the pubic symphysis. Sagittal and coronal reformatted images were obtained on the technologist's workstation. This CT examination was performed using dose optimization techniques as appropriate, variously including the following: *Automated exposure control *Adjustment of mA and/or kV according to patient size (this includes techniques or standardized protocols for targeted exams where dose is matched to indication/reason for exam; i.e. extremities or head) *Use of iterative reconstruction technique DLP: 775 mGy-cm FINDINGS: LUNG BASES: The visualized lung bases are unremarkable. LIVER, GALLBLADDER, AND BILIARY TREE: The liver is normal in size, shape, and attenuation. No focal hepatic lesion or biliary ductal dilatation is present. The gallbladder is surgically absent. PANCREAS: There is mild fat stranding adjacent to the uncinate process (3:34). No focal pancreatic mass or ductal dilatation is noted. There is no acute peripancreatic fluid collection. SPLEEN: Unremarkable. ADRENAL GLANDS: Unremarkable. KIDNEYS AND URETERS: The kidneys are normal in size, shape, and attenuation. At the lower pole of the right kidney (3:35), a 5 mm nonobstructing calculus is seen. No further urinary calculus is seen, and there is no obstructive uropathy. Again, the right ureter crosses the midline, presumably inserted into the leftward urinary bladder. No perinephric stranding. BLADDER: Unremarkable. GASTROINTESTINAL TRACT: There are postoperative changes of the stomach, consistent with a prior sleeve gastrectomy. There is mild diverticulosis, without acute diverticulitis. No bowel obstruction, free intraperitoneal air or abscess is seen. There is no focal bowel wall thickening. There is a patent ileocolic anastomotic staple line. ABDOMINAL WALL: No significant hernia is appreciated. LYMPH NODES: Normal. VASCULAR: There is mild aortoiliac atherosclerotic calcification. No abdominal aortic aneurysm is seen. PELVIC VISCERA: Surgically absent. No pelvic mass, free fluid or lymphadenopathy is seen. OSSEOUS STRUCTURES: There is multi-level marked thoracic and mild lumbar spondylosis. There is no acute or aggressive osseous finding. CT/CT abdomen pelvis wo IV con IMPRESSION: 1. A 5 mm nonobstructing right renal calculus is seen. No further urinary calculus is seen, and is no obstructive uropathy noted bilaterally. 2. There is mild fat stranding adjacent to the uncinate process of the pancreas, raising the question of early pancreatitis. Recommend clinical correlation, possibly to include a serum lipase level. 3. The gallbladder and uterus are surgically absent. 4. No bowel obstruction, free intraperitoneal air or abscess is seen. There is mild diverticulosis, without acute diverticulitis. Postoperative changes are noted, as detailed. 5. There is multi-level marked thoracolumbar spondylosis. No acute or aggressive osseous finding is noted. Assessment & Plan Assessment & Plan (1) Renal stones: Code(s): N20.0 - Calculus of kidney Plan Cont to monitor kidneys. Cont Diet management, Adequate water intake. Orders: Orders AMB Urinalysis Automated 03/20/23 Z13.9 - Encounter for screening, unspecified Patient Instructions: The patient had an opportunity to ask questions regarding treatment plan. All questions were answered. Imaging, Laboratory studies and physical exam results were discussed and reviewed in detail. No major barriers to understanding were identified. The patient expressed understanding and agreement with the above treatment plan. The patient is aware they should contact our office by phone for worsening of their current condition or the appearance of new symptoms. Compliance is encouraged with any medications and followup testing that is ordered. It is a privilege to be allowed the opportunity to participate in the urologic care of your patient. If you have any questions or concerns regarding treatment for the above conditions please do not hesitate to contact me. The office telephone contact is [phone]. This note is constructed in part using voice recognition software. While every effort has been made to ensure accuracy chemistry quality control technician errors may have been included. Yours sincerely, Adal Christiansen MD Coding Level of Care Code Est Pt Level 3 (36492) Diagnoses Renal stones N20.0
== END 2023-03-20 11:43 | disposition home or self-care (01) ==
PROVIDERS: PCP Internal Medicine; Referring Provider Internal Medicine; Visit Provider Urology
DX: N20.0 Calculus of kidney (principal)
CPT/HCPCS: 99213

== ENCOUNTER → 2023-03-20 11:00 | Outpatient (BNVA) | payer MEDICAID, SELFPAY | PROVIDERS: Visit Provider Urology | DX: N20.0 Calculus of kidney (principal) | CPT/HCPCS: 81003; 99212 ==

== ENCOUNTER 2023-04-10 06:29 | Outpatient (REF) | payer MEDICAID, SELFPAY ==
--- NOTE | ~2023-04-10 | XR_ITS ---
EXAMINATION: XR HAND, LEFT CLINICAL INFORMATION: Pain COMPARISON: None TECHNIQUE: 3 views of the hand FINDINGS: No fracture or dislocation. Mild osteoarthritis of the DIP joints with small osteophytes. No cortical erosion. Soft tissues are unremarkable. XR/XR hand LT min 3V IMPRESSION: Mild osteoarthritis of the DIP joints with small osteophytes.
== END 2023-04-10 06:30 | disposition home or self-care (01) ==
LOC: HO.HOSX 06:29
PROVIDERS: Visit Provider Physician Assistant
DX: G56.02 Carpal tunnel syndrome, left upper limb (principal)
CPT/HCPCS: 73130; 99212

== ENCOUNTER 2023-04-10 09:42 | Outpatient (AMB) | payer MEDICAID, SELFPAY ==
[2023-04-10 09:59] VITALS: BMI 39.5
--- NOTE | 2023-04-10 09:59 | A.OFFVIS_ITS ---
Intake Vital Signs 04/10/23 09:59 Height 5 ft 1 in Weight 209 lb BMI 39.5 Intake Visit Reasons: New Prob- Lt hand pain Intake Note: Ann-Marie 57 yr old female presents today for a new problem visit for her left hand pain. Patient reports she is having increase numbness, tingling and pain. States her CTS are worse at night time and would like to have CTR. Hx of Rt hand CTR 10/[address] Galaviz. 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 She has a history of bilateral CTS and states she has worsening pain, numbness and tingling in her left hand. Her pain is aggravated at night. She also experiences difficulty making a fist. She had a right CTR on 10/[address] Galaviz. She would like to discuss about having a left CTR. She has a history of diabetes. [facility] Medical History Osteoarthritis of left knee Hypersomnolence Renal calculi Diabetes COVID-19 vaccine administered COPD (chronic obstructive pulmonary disease) Allergic rhinitis KAYLEE on CPAP Obesity (BMI 30-39.9) Obesity Axillary hidradenitis suppurativa GERD (gastroesophageal reflux disease) Asthma Arthritis Hypertension Hyperlipidemia Surgical History S/P total knee arthroplasty (09/20/22) History of carpal tunnel release Hx of knee surgery Hx of cystoscopy History of esophagogastroduodenoscopy (EGD) H/O colonoscopy Hx of total knee replacement History of salpingoophorectomy H/O lithotripsy H/O hemicolectomy H/O tubal ligation Hx of cholecystectomy S/P laparoscopic sleeve gastrectomy Family History Mother No problems noted. Father No problems noted. Son No problems noted. Daughter No problems noted. Son No problems noted. Sister No problems noted. Sister No problems noted. Brother No problems noted. Brother No problems noted. Brother No problems noted. Brother No problems noted. 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 Tenderness over the carpal canal. Numbness and tingling over the median nerve distribution of the right hand. Able to make a full fist and fully extend all fingers. Positive Tinel's. Results Reviewed Results Reviewed: EMG nerve conduction study: The study was performed by Dr. Martell on 07/2019. He found evidence of moderate carpal tunnel syndrome bilaterally with no evidence of ulnar neuropathy. Please see his report for additional information is necessary. Assessment & Plan Assessment & Plan (1) Carpal tunnel syndrome of left wrist: Code(s): G56.02 - Carpal tunnel syndrome, left upper limb Plan We discussed options which include conservative vs operative treatment. Since the patient has been symptomatic for several months and it is impacting their daily life, the decision was made to undergo right carpal tunnel release. We discussed risk, benefits and alternatives. Risk including but not limited to infection, weakness, stiffness, ongoing numbness or tingling. The patient does understand all this and would like to proceed with left carpal tunnel release with Dr. Galaviz. They will be booked accordingly. Orders: Orders XR hand LT min 3V Today M79.642 - Pain in left hand Patient Instructions: Scribed for Jayla Eller PA-C, by Nixon Swanson front office medical assistant, on 04/10/2023 at 10:30 AM Jayla BARON PA-C, have personally reviewed and agree with the information entered by the scribe. Coding Level of Care Code Est Pt Level 3 (02703) Diagnoses Carpal tunnel syndrome of left wrist G56.02
== END 2023-04-10 11:01 | disposition home or self-care (01) ==
PROVIDERS: PCP Internal Medicine; Visit Provider Physician Assistant
DX: G56.02 Carpal tunnel syndrome, left upper limb (principal)
CPT/HCPCS: 99213

== ENCOUNTER 2023-05-02 08:47 | Outpatient (REF) | payer MEDICAID, SELFPAY ==
--- NOTE | ~2023-05-02 | MM_ITS ---
EXAMINATION: MM SCREENING DIGITAL BREAST TOMOSYNTHESIS, BILATERAL CLINICAL INFORMATION: Screening. Asymptomatic. COMPARISON: Mammography: 04/21/2022, 04/15/2021, 04/14/2020, 04/11/2019, 04/05/2018, 03/13/2017 . TECHNIQUE: Digital breast tomosynthesis is performed in both the craniocaudal and mediolateral oblique views along with computer-aided detection (CAD). Synthesized 2D images are generated from the tomosynthesis. FINDINGS: The breasts are almost entirely fatty (ACR BI-RADS breast composition Category a). There are calcifications in the left breast upper outer quadrant middle one depth which require further evaluation with magnification views. Otherwise, no additional suspicious calcifications identified. No suspicious masses or areas of architectural distortion in either breast. No skin or axillary abnormalities. MM/MM tomosynthesis screening BI IMPRESSION: Indeterminate calcifications upper outer left breast middle one third, for which diagnostic views recommended. No suspicious findings in the right breast. ASSESSMENT: BI-RADS BI-RADS 0 - Incomplete: Needs additional Imaging. RECOMMENDATION: 1. Additional views of the left breast 2. Radiology department staff will contact the patient for additional imaging. Additional Imaging required This examination should not preclude the clinical evaluation of a suspicious palpable abnormality.
== END 2023-05-02 08:48 | disposition home or self-care (01) ==
LOC: HO.MAMMO 08:47
PROVIDERS: PCP Internal Medicine; Visit Provider Internal Medicine
DX: Z12.31 Encounter for screening mammogram for malignant neoplasm of breast (principal)
CPT/HCPCS: 77063; 77067

== ENCOUNTER → 2023-05-02 09:00 | Outpatient (BNV) | payer MEDICAID, SELFPAY | PROVIDERS: PCP Internal Medicine; Visit Provider Radiology Diagnostic Radiology | DX: Z12.31 Encounter for screening mammogram for malignant neoplasm of breast (principal) | CPT/HCPCS: 77063; 77067 ==

== ENCOUNTER 2023-05-18 08:43 | Outpatient (REF) | payer MEDICAID, SELFPAY ==
[2023-05-18 13:00] LABS: Microalbum/Creatinine Ratio Ur 2.9 ug/mg cr (<30)
[2023-05-18 13:22] LABS: Alanine Aminotransferase 20 U/L (0-31); Alkaline Phosphatase 125 U/L (39-117); Anion Gap 16 (12-20); Aspartate Amino Transferase 20 U/L (5-31); Bilirubin Total 0.3 mg/dL (0.0-1.0); Blood Urea Nitrogen 15 mg/dL (9-16); Calcium 9.7 mg/dL (8.4-10.2); Carbon Dioxide 33 mmol/L (22-29); Chloride 100 mmol/L (96-108); Cholesterol 168 mg/dL (<200); Estimated Glomerular Filt Rate 52; Glucose Random 107 mg/dL (60-115); HDL Cholesterol 36 mg/dL (>40); LDL Cholesterol Calculated 77 mg/dL (<100); Potassium 3.5 mmol/L (3.3-5.1); Sodium 145 mmol/L (135-145); Total Protein 7.9 g/dL (6.5-8.0); Triglycerides 278 mg/dL (<150)
[2023-05-18 13:41] LABS: Vitamin D 25-OH Total 39.6 ng/mL (>30)
[2023-05-18 14:18] LABS: Reflex LDLD? No
[2023-05-21 07:34] LABS: TS Negative Control Passed; TS Panel A 1; TS Panel B 0; TS Positive Control Passed; TSpotTB Negative (Negative)
== END 2023-05-18 08:44 | disposition home or self-care (01) ==
LOC: HO.HHCL 08:43
PROVIDERS: Visit Provider Internal Medicine
DX: E11.9 Type 2 diabetes mellitus without complications (principal); I10 Essential (primary) hypertension
CPT/HCPCS: 36415; 80053; 80061; 82043; 82306; 82570; 84443; 86481

== ENCOUNTER 2023-05-29 14:18 | Outpatient (REF) | payer MEDICAID, SELFPAY ==
--- NOTE | ~2023-05-29 | MM_ITS ---
EXAMINATION: MM DIAGNOSTIC DIGITAL MAMMOGRAPHY, LEFT CLINICAL INFORMATION: Evaluate microcalcifications seen on screening mammogram upper outer left breast, new from prior mammogram. COMPARISON: Mammography: 04/21/2022, 04/15/2021, 04/14/2020, and dating back to 2018. TECHNIQUE: Digital mammography is performed in the following views: Full-field left 3-D 90 degree mediolateral view, and 2-D spot magnification views left CC x2, and ML x1. FINDINGS: The breasts are almost entirely fatty (ACR BI-RADS breast composition Category a). There is a 3 mm focus of somewhat pleomorphic calcifications which has developed in the upper outer left breast without underlying density. There are some branching and casting forms evident on the CC magnification view. These calcifications are indeterminant, and stereotactic biopsy is recommended to further characterize. No additional abnormalities noted left breast. MM/MM added views LT IMPRESSION: Indeterminate 3 mm focus of calcifications upper outer left breast, for which stereotactic biopsy recommended. Findings and recommendations were discussed with the patient in detail with the use of a interpreter for the deaf. ASSESSMENT: BI-RADS BI-RADS 4 - Suspicious finding RECOMMENDATION: Biopsy recommended
== END 2023-05-29 14:19 | disposition home or self-care (01) ==
LOC: HO.MAMMO 14:18
PROVIDERS: PCP Internal Medicine; Visit Provider Internal Medicine
DX: R92.1 Mammographic calcification found on diagnostic imaging of breast (principal)
CPT/HCPCS: 77065

== ENCOUNTER → 2023-05-29 14:30 | Outpatient (BNV) | payer MEDICAID, SELFPAY | PROVIDERS: PCP Internal Medicine; Visit Provider Radiology Diagnostic Radiology | DX: R92.1 Mammographic calcification found on diagnostic imaging of breast (principal) | CPT/HCPCS: 77065 ==

== ENCOUNTER 2023-06-02 08:24 | Outpatient (AMB) | payer MEDICAID, SELFPAY ==
--- NOTE | 2023-06-02 08:26 | MHC.OFFVIS ---
Intake Vital Signs 06/02/23 08:31 Height 5 ft 1 in Weight 207 lb BMI 39.1 BP 131/73 Blood Pressure Location Rt brachial Position Sitting Pulse 86 Intake Visit Reasons: Stereo Bx Lt breast UOQ calcs Intake Note: Patient is seen in office for stereo biopsy consult, left breast upper outer quadrant calcifications. Pt c/o:reports no breast pain, reports no discomfort, reports no change in shape or size. Machine Operator Slitter Technician Required: Yes Machine Operator Slitter Technician Language: It Sales Representative Name: Roula Information Interpreted: non-clinical & clinical Accompanied by: Self / Same As Patient Allergies sulfamethoxazole [From Bactrim] Allergy (Intermediate, Verified 06/02/23 08:33) RASH Medication List - Last Reconciled 06/02/23 by Jean Carlos Jones MD albuterol sulfate 2.5 mg (3 mL) inhalation Q4H PRN albuterol sulfate 90 mcg/actuation (Ventolin HFA) 1 puff PO Q4-6H PRN atorvastatin 40 mg PO BEDTIME blood sugar diagnostic (FreeStyle Lite Strips) As directed celecoxib 200 mg PO BID cholecalciferol (vitamin D3) 25 mcg PO DAILY citalopram 1 tab PO QAM cyanocobalamin (vitamin B-12) (Vitamin B-12) 1,000 mcg PO DAILY cyclobenzaprine 10 mg PO TID PRN docusate sodium 100 mg PO BID 14 days docusate sodium (Colace) 100 mg PO BID dulaglutide (Trulicity) mg subcut QWEEK epinephrine 0.3 mg IM Q10M PRN fluticasone propion-salmeterol 250-50 mcg/dose (Advair Diskus) 1 ea PO BID fluticasone propionate 50 mcg/actuation (Flonase Allergy Relief) 1 spray intranasal DAILY furosemide 40 mg PO DAILY hydroxyzine HCl 1 tab PO BEDTIME PRN ipratropium bromide 1 - 2 sprays intranasal PRN lancets (Easy Touch Twist Lancets) As directed loratadine 10 mg PO DAILY lorazepam 0.5 mg PO BID PRN magnesium oxide 250 mg PO DAILY montelukast 10 mg PO BEDTIME multivitamin with folic acid 400 mcg (Daily-Royal (with folic acid)) 1 tab PO DAILY pantoprazole 40 mg PO DAILY thiamine HCl (vitamin B1) 100 mg PO DAILY tramadol 50 mg PO walker Folding Front wheeled walker zolpidem 10 mg PO BEDTIME PRN HPI HPI Comments History of Present Illness Details 57-year-old female patient presenting for evaluation of an abnormal mammogram of the left breast. She was found on screening mammogram of 05/02/2023 with additional images obtained 05/29/2023 to have a small cluster of calcifications in the left breast in the upper outer quadrant new from her previous mammogram, felt to be suspicious for malignancy (BI-RADS 4). A stereotactic guided core biopsy is scheduled for later today at the [facility]. She denies a previous history of breast problems or breast surgery. She did have a lipoma removed from the sternal area several years ago which was benign. Her family history is negative for breast cancer. She is 3 para 3 and denies breast-feeding her children. She denies any palpable breast mass, skin change, nipple discharge or enlarged lymph nodes. [facility] Medical History Osteoarthritis of left knee Hypersomnolence Renal calculi Diabetes COVID-19 vaccine administered COPD (chronic obstructive pulmonary disease) Allergic rhinitis KAYLEE on CPAP Obesity (BMI 30-39.9) Obesity Axillary hidradenitis suppurativa GERD (gastroesophageal reflux disease) Asthma Arthritis Hypertension Hyperlipidemia Surgical History S/P total knee arthroplasty (09/20/22) History of carpal tunnel release Hx of knee surgery Hx of cystoscopy History of esophagogastroduodenoscopy (EGD) H/O colonoscopy Hx of total knee replacement History of salpingoophorectomy H/O lithotripsy H/O hemicolectomy H/O tubal ligation Hx of cholecystectomy S/P laparoscopic sleeve gastrectomy Family History Mother No problems noted. Father No problems noted. Son No problems noted. Daughter No problems noted. Son No problems noted. Sister No problems noted. Sister No problems noted. Brother No problems noted. Brother No problems noted. Brother No problems noted. Brother No problems noted. 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 Female Reproductive History Menstrual Age of Menarche: 7 Total pregnancies: 3 Review of Systems Const All systems reviewed & are unremarkable except as noted in HPI and below Denies chills, Denies fever(s), Denies headache(s), Denies poor appetite and Denies weakness ENT Denies headache(s) Card Denies chest pain, Denies irregular heart rhythm, Denies palpitations and Denies dyspnea Resp Denies cough, Denies excessive phlegm production and Denies dyspnea GI Denies abdominal pain, Denies bloating, Denies change in bowel habits, Denies constipation, Denies heartburn, Denies diarrhea, Denies nausea and Denies vomiting Denies urinary frequency Musc Denies back pain, Denies muscle weakness and Denies numbness Skin/Breast Denies changing lesions and Denies unusual bruising Neuro Denies headache(s), Denies numbness, Denies paresthesias and Denies weakness Psych Denies anxiety and Denies depression Endo Denies palpitations Valentin/Lymph Denies lymphadenopathy Physical Exam Vital Signs: Last Vital Signs Pulse 86 06/02/23 08:31 BP 131/73 06/02/23 08:31 BMI result Body Mass Index 39.1 Const General: cooperative and no acute distress Nutritional Appearance: well nourished Orientation/consciousness: patient oriented x3 Limitations: no limitations HEENT Head: Yes normocephalic and Yes atraumatic Ears: hearing grossly normal bilaterally Chest Other: Left breast: No skin change, no nipple retraction, no nipple discharge, no palpable mass, no enlarged lymph nodes. Right breast: No skin change, no nipple retraction, no nipple discharge, no palpable mass, no enlarged lymph nodes Resp Effort & Inspection: normal respiratory effort, no audible wheezes, no cough and no respiratory distress Cardio Jugular venous distension: no JVD GI Inspection: Yes normal to inspection Skin Other: Warm, dry, no rash Neuro General: patient oriented x3 Extrem General: Yes no clubbing, cyanosis or edema Results Reviewed Results Reviewed: Left breast: Assessment & Plan Assessment & Plan (1) Abnormal mammogram of left breast: Code(s): R92.8 - Other abnormal and inconclusive findings on diagnostic imaging of breast Plan 57-year-old female patient presenting with an abnormal mammogram of the left breast which revealed a cluster of microcalcifications in the upper outer quadrant felt to be suspicious for malignancy (BI-RADS 4). She is scheduled for a stereotactic guided core biopsy later today at the [facility]. Her past history is negative for any previous breast problems or breast surgery and her family history is negative for breast cancer. Examination today revealed no suspicious findings in either breast. I recommended the patient return approximately 5-7 days to review the pathology results and discuss treatment options if necessary. She is welcome to call sooner for any concerns after the biopsy. She expressed understanding and agrees with the plan. Orders: Orders MM stereotactic biopsy LT Today R92.8 - Other abnormal and inconclusive findings on diagnostic imaging of breast Coding Level of Care Code New Pt Level 4 (67161) Diagnoses Abnormal mammogram of left breast R92.8
[2023-06-02 08:31] VITALS: BP 131/73; PULSE 86; BMI 39.1
== END 2023-06-02 08:58 | disposition home or self-care (01) ==
PROVIDERS: PCP Internal Medicine; Visit Provider Surgery
DX: R92.8 Other abnormal and inconclusive findings on diagnostic imaging of breast (principal)
CPT/HCPCS: 99204

== ENCOUNTER 2023-06-02 09:23 | Outpatient (REF) | payer MEDICAID, SELFPAY | END 2023-06-02 09:24 | disposition home or self-care (01) | LOC: HO.MAMMO 09:23 | PROVIDERS: PCP Internal Medicine; Visit Provider Surgery | DX: R92.8 Other abnormal and inconclusive findings on diagnostic imaging of breast (principal) | CPT/HCPCS: 99202 ==

== ENCOUNTER 2023-06-14 10:21 | Outpatient (AMB) | payer MEDICAID, SELFPAY ==
[2023-06-14 10:27] VITALS: BP 110/80; PULSE 87; O2SAT 98; BMI 38.4
--- NOTE | 2023-06-14 10:27 | A.OFFVIS_ITS ---
Intake Vital Signs 06/14/23 10:27 Height 5 ft 1 in Weight 203 lb BMI 38.4 BP 110/80 Blood Pressure Location Lt brachial Position Sitting Pulse 87 Pulse Source Pulse Oximeter Pulse Oximetry (%) 98 Oxygen Delivery Method Room Air Intake Visit Reasons: kaylee Intake Note: pt is here for follow upf of KAYLEE and is loosing weight, cpap usage is good, and is waiting for supplies. She did have an abnormal mammo and will be having a biospy. Equipment Maintenance Superintendent Required: Yes Equipment Maintenance Superintendent Name: ubaldo Allergies sulfamethoxazole [From Bactrim] Allergy (Intermediate, Verified 06/14/23 10:53) RASH Medication List - Last Reconciled 06/14/23 by Shaylee Carrillo MD albuterol sulfate 2.5 mg (3 mL) inhalation Q4H PRN albuterol sulfate 90 mcg/actuation (Ventolin HFA) 1 puff PO Q4-6H PRN atorvastatin 40 mg PO BEDTIME blood sugar diagnostic (FreeStyle Lite Strips) As directed celecoxib 200 mg PO BID cholecalciferol (vitamin D3) 25 mcg PO DAILY citalopram 1 tab PO QAM cyanocobalamin (vitamin B-12) (Vitamin B-12) 1,000 mcg PO DAILY cyclobenzaprine 10 mg PO TID PRN docusate sodium 100 mg PO BID 14 days docusate sodium (Colace) 100 mg PO BID dulaglutide (Trulicity) mg subcut QWEEK epinephrine 0.3 mg IM Q10M PRN fluticasone propion-salmeterol 250-50 mcg/dose (Advair Diskus) 1 ea PO BID fluticasone propionate 50 mcg/actuation (Flonase Allergy Relief) 1 spray intranasal DAILY furosemide 40 mg PO DAILY hydroxyzine HCl 1 tab PO BEDTIME PRN ipratropium bromide 1 - 2 sprays intranasal PRN lancets (Easy Touch Twist Lancets) As directed loratadine 10 mg PO DAILY lorazepam 0.5 mg PO BID PRN magnesium oxide 250 mg PO DAILY montelukast 10 mg PO BEDTIME multivitamin with folic acid 400 mcg (Daily-Royal (with folic acid)) 1 tab PO DAILY pantoprazole 40 mg PO DAILY thiamine HCl (vitamin B1) 100 mg PO DAILY tramadol 50 mg PO walker Folding Front wheeled walker zolpidem 10 mg PO BEDTIME PRN Do you need a note to return to daycare/school/sports/work: No HPI kaylee HPI Details 57 YEARS OLD VERY PLEASANT [place]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 FOLLOW- UP AFTER 6 MONTHS SHE IS GROSSLY OBESE BUT LOSING WEIGHT SLOWLY. SHE IS BEING TREATED FOR OBSTRUCTIVE SLEEP APNEA AND SHE IS VERY REGULAR CPAP USER, WITH GOOD SLEEP . NO ISSUES WITH THE CPAP MASK OR DEVICE. HER COPD IS WELL CONTROLLED AND STABLE, WITH THE CURRENT REGIMEN SHE DENIES MUCH COUGH OR WHEEZING. SHE DOES GET SLIGHT SHORTNESS OF BREATH ON WALKING AROUND. NASAL SYMPTOMS ARE UNDER CONTROL. [facility] Medical History Osteoarthritis of left knee Hypersomnolence Renal calculi Diabetes COVID-19 vaccine administered COPD (chronic obstructive pulmonary disease) Allergic rhinitis KAYLEE on CPAP Obesity (BMI 30-39.9) Obesity Axillary hidradenitis suppurativa GERD (gastroesophageal reflux disease) Asthma Arthritis Hypertension Hyperlipidemia Surgical History S/P total knee arthroplasty (09/20/22) History of carpal tunnel release Hx of knee surgery Hx of cystoscopy History of esophagogastroduodenoscopy (EGD) H/O colonoscopy Hx of total knee replacement History of salpingoophorectomy H/O lithotripsy H/O hemicolectomy H/O tubal ligation Hx of cholecystectomy S/P laparoscopic sleeve gastrectomy Family History Mother No problems noted. Father No problems noted. Son No problems noted. Daughter No problems noted. Son No problems noted. Sister No problems noted. Sister No problems noted. Brother No problems noted. Brother No problems noted. Brother No problems noted. Brother No problems noted. 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 Female Reproductive History Menstrual Age of Menarche: 7 Review of Systems Const All systems reviewed & are unremarkable except as noted in HPI and below Eyes Reports no additional complaints ENT Reports change in voice (MILD TO MODERATE DEGREE OF HOARSENESS, HAS ENT CONSULT) Card Denies chest pain, Denies irregular heart rhythm and Denies leg edema Resp Reports as per HPI GI Reports heartburn (Controlled with med) Reports no additional complaints Musc Reports back pain and Reports myalgias Skin/Breast Reports system reviewed and no additional complaints, except as documented Neuro Reports no additional complaints Psych Reports anxiety and Reports depression Valentin/Lymph Reports no additional complaints Physical Exam Vital Signs: Last Vital Signs Pulse 87 06/14/23 10:27 BP 110/80 06/14/23 10:27 Pulse Ox 98 06/14/23 10:27 Oxygen Delivery Method Room Air 06/14/23 10:27 BMI result Body Mass Index 38.4 Const General: comfortable, no acute distress, alert and awake Orientation/consciousness: patient oriented x3 HEENT Head: Yes normal to inspection General nose exam: No nasal polyps present and No nasal discharge present Face and sinus: Yes sinuses nontender Mouth: oropharynx normal Throat: Yes posterior oropharynx normal Eyes General: appearance normal, both eyes and all related structures Neck Neck: Yes normal visual inspection, Yes no lymphadenopathy, Yes trachea midline, Yes no JVD and Yes other (Neck is short and obese, circumference 16 in.) Thyroid: Thyroid normal Chest Chest palpation & inspection: normal inspection of the chest, normal palpation of entire chest wall and no tenderness Resp Other: Breath sounds are slightly distant. Both lungs are clear with prolonged expiratory phase. No wheezes or rhonchi are heard. Cardio Palpation: normal PMI Rate: regular rate Rhythm: regular rhythm Heart sounds: no gallops and no murmurs GI Palpation (GI): Soft to palpation, nontender, No hepatosplenomegaly present, no masses and Other GI palpation findings present (Abdomen is obese and slightly protuberant) Auscultation: normal bowel sounds Back/Spine/Pelvis Thoracic/Lumbar Spine: thoracic and lumbar spine normal to inspection and thoraco-lumbar ROM limited Skin General skin exam: no rashes or lesions noted Neuro General: patient oriented x3 and no focal motor deficits Cranial nerves: Yes CN's II-XII intact bilaterally Extrem General: Yes normal to inspection, Yes no clubbing, cyanosis or edema and Yes no calf tenderness Psych Appearance: grossly normal Speech and movement: Normal speech and movement present Results Reviewed Results Reviewed: COMPLIANCE REPORT FOR THE LAST 30 NIGHTS IS REVIEWED. SHE HAS USED 30/30 NIGHTS, 100%. AND AVERAGE USE PER NIGHT 7 HOURS 7 MINUTE. AVERAGE PRESSURE USED IS 6.7 CM. NO RESIDUAL AHI Assessment & Plan Assessment & Plan (1) Obesity (BMI 30-39.9): Comment: SHE REMAINS GROSSLY OBESE BUT HAS LOST ABOUT 10 .LB OF WEIGHT Code(s): E66.9 - Obesity, unspecified Plan: SHE IS ENCOURAGED TO KEEP ON LOSING MORE WEIGHT. SHE IS ON TRULICITY INJECTIONS WHICH ARE HELPING HER TO LOSE MORE WEIGHT. (2) KAYLEE on CPAP: Comment: KAYLEE IS WELL TREATED SHE HAS BEEN VERY COMPLIANT AND BENEFITING. Code(s): G47.33 - Obstructive sleep apnea (adult) (pediatric); Z99.89 - Dependence on other enabling machines and devices Plan: COMMENDED FOR HER GOOD COMPLIANCE AND IS ENCOURAGED TO KEEP ON USING CPAP .REGULARLY EVERY NIGHT (3) Allergic rhinitis: Comment: CURRENTLY SHE HAS, MILD RHINITIS Code(s): J30.9 - Allergic rhinitis, unspecified Plan: ADVISED TO CONTINUE SYMPTOMATIC TREATMENT. MAY USE IPRATROPIUM BROMIDE NASAL SPRAY 1 SPRAY IN EACH NOSTRIL P.R.N. MAY USE ROBITUSSIN DM 2 TSP T.I.D. P.R.N. FOR COUGH, AND MAY USE OTC ANTIHISTAMINIC AGENT SUCH CLARITIN 10 MG ONCE A DAY P.R.N. (4) COPD (chronic obstructive pulmonary disease): Comment: SHE HAS COMBINATION OF MILD ASTHMA, COPD AND RESTRICTIVE LUNG DISORDER Code(s): J44.9 - Chronic obstructive pulmonary disease, unspecified Plan: TX: ADVAIR 250-50 ONE INH BID USE ALBUTEROL 2 PUFFS Q 4-6 HOURS ONLY P.R.N. Coding Level of Care Code Est Pt Level 4 (27877) Diagnoses Obesity (BMI 30-39.9) E66.9 KAYLEE on CPAP G47.33; Z99.89 Allergic rhinitis J30.9 COPD (chronic obstructive pulmonary disease) J44.9
== END 2023-06-14 10:54 | disposition home or self-care (01) ==
PROVIDERS: PCP Internal Medicine; Visit Provider Internal Medicine
DX: E66.9 Obesity, unspecified (principal); G47.33 Obstructive sleep apnea (adult) (pediatric); Z99.89 Dependence on other enabling machines and devices; J30.9 Allergic rhinitis, unspecified; J44.9 Chronic obstructive pulmonary disease, unspecified
CPT/HCPCS: 99214

== ENCOUNTER → 2023-06-14 10:21 | Outpatient (BNVA) | payer MEDICAID, SELFPAY | PROVIDERS: PCP Internal Medicine; Visit Provider Internal Medicine | DX: G47.33 Obstructive sleep apnea (adult) (pediatric) (principal); J30.9 Allergic rhinitis, unspecified; J44.9 Chronic obstructive pulmonary disease, unspecified; E66.9 Obesity, unspecified; Z99.89 Dependence on other enabling machines and devices; Z68.38 Body mass index [BMI] 38.0-38.9, adult | CPT/HCPCS: 99212 ==

== ENCOUNTER 2023-06-19 07:30 | Emergency (ER) | payer MEDICAID, SELFPAY ==
--- NOTE | ~2023-06-19 | XR_ITS ---
EXAMINATION: XR CHEST CLINICAL INFORMATION: SOB (shortness of breath COMPARISON: Chest 07/05/2021 TECHNIQUE: AP upright portable view of the chest was obtained. 8:34 AM FINDINGS: No significant abnormality is noted involving the heart, lungs, mediastinum, bony thorax or soft tissues. Left upper quadrant surgical clips are present. XR/XR chest 1V IMPRESSION: No acute cardiopulmonary disease.
[2023-06-19 07:37] VITALS: BP 175/85; PULSE 109; RESP 16; TEMP 37.8; O2SAT 97; BMI 36.8
--- NOTE | 2023-06-19 07:43 | ECG_ITS ---
Test Reason : CHEST PAIN Blood Pressure : / mmHG Vent. Rate : 105 BPM Atrial Rate : 105 BPM P-R Int : 154 ms QRS Dur : 090 ms QT Int : 334 ms P-R-T Axes : 064 057 036 degrees QTc Int : 441 ms Sinus tachycardia Otherwise normal ECG When compared with ECG of 05-NOV-2020 14:04, No significant change was found Referred By: Emanuel Pizano Electronically Signed By:ANGELA ZIMMERMAN MD
--- NOTE | 2023-06-19 07:45 | ED.GENADULT ---
HPI - General Adult General Chief complaint: General Medical Stated complaint: Cold symptoms/Extremity numbness Time Seen by Provider: 06/19/23 07:40 Source: patient Mode of arrival: ambulatory Limitations: no limitations History of Present Illness HPI narrative: This is 57 years old female with history of diabetes obesity presented to emergency department complaining of congestion cough generalized weakness tingling in the all extremities since Monday. Denies any chest pain. Onset (ago): day(s) (2) Radiation: non-radiation Severity: mild Quality: burning Relieving factors: none Exacerbating factors: none Related Data Home Medications Medication Instructions Recorded Confirmed atorvastatin 40 mg tablet 40 mg PO BEDTIME 02/27/20 06/14/23 docusate sodium 100 mg capsule 100 mg PO BID 02/27/20 06/14/23 (Colace) epinephrine 0.3 mg/0.3 mL 0.3 mg IM Q10M PRN Anaphylaxis 02/27/20 06/14/23 injection, auto-injector fluticasone propionate 50 1 spray intranasal DAILY 02/27/20 06/14/23 mcg/actuation nasal spray,suspension (Flonase Allergy Relief) furosemide 40 mg tablet 40 mg PO DAILY 02/27/20 06/14/23 loratadine 10 mg capsule 10 mg PO DAILY 02/27/20 06/14/23 lorazepam 0.5 mg tablet 0.5 mg PO BID PRN Anxiety 02/27/20 06/14/23 montelukast 10 mg tablet 10 mg PO BEDTIME 02/27/20 06/14/23 pantoprazole 40 mg tablet,delayed 40 mg PO DAILY 02/27/20 06/14/23 release zolpidem 10 mg tablet 10 mg PO BEDTIME PRN Insomnia 02/27/20 06/14/23 citalopram 40 mg tablet 1 tab PO QAM 11/05/20 06/14/23 hydroxyzine HCl 25 mg tablet 1 tab PO BEDTIME PRN itch 11/05/20 06/14/23 cyanocobalamin (vitamin B-12) 1,000 mcg PO DAILY 08/17/22 06/14/23 1,000 mcg tablet (Vitamin B-12) magnesium oxide 250 mg PO DAILY 08/17/22 06/14/23 multivitamin with folic acid 400 1 tab PO DAILY 04/19/23 02/14/24 mcg tablet (Daily-Royal (with folic acid)) dulaglutide 0.75 mg/0.5 mL mg subcut QWEEK 12/14/22 06/14/23 subcutaneous pen injector (Trulicity) tramadol 50 mg tablet 50 mg PO severe pain 12/14/22 06/14/23 blood sugar diagnostic (FreeStyle #10 ea 03/20/23 06/14/23 Lite Strips) lancets 33 gauge (Easy Touch Twist #100 ea 03/20/23 06/14/23 Lancets) ipratropium bromide 21 mcg (0.03 1 - 2 spray intranasal PRN 06/02/23 06/14/23 %) nasal spray Previous Rx's Medication Instructions Recorded albuterol sulfate 2.5 mg/3 mL 2.5 mg (3 mL) inhalation Q4H PRN 10/30/20 (0.083 %) solution for nebulization shortness of breath or wheezing #75 mL thiamine HCl (vitamin B1) 100 mg 100 mg PO DAILY #90 tabs 06/07/22 tablet fluticasone 250 mcg-salmeterol 50 1 ea PO BID #60 ea 06/21/22 mcg/dose blistr powdr for inhalation (Advair Diskus) docusate sodium 100 mg capsule 100 mg PO BID 14 days #28 caps 09/22/22 walker #1 ea 09/23/22 celecoxib 200 mg capsule 200 mg PO BID #60 caps 11/17/22 cyclobenzaprine 10 mg tablet 10 mg PO TID PRN muscle spasm #10 01/30/23 tabs cholecalciferol (vitamin D3) 25 25 mcg PO DAILY #90 tabs 05/17/23 mcg (1,000 unit) tablet albuterol sulfate 90 mcg/actuation 1 puff PO Q4-6H PRN for wheezing 06/07/23 aerosol inhaler (Ventolin HFA) #18 ea amoxicillin 500 mg capsule 500 mg PO TID #21 caps 06/19/23 magnesium oxide 400 mg PO DAILY low magnesium #30 06/19/23 caps Allergies Allergy/AdvReac Type Severity Reaction Status Date / Time sulfamethoxazole Allergy Intermediate RASH Verified 06/14/23 10:53 [From Bactrim] Review of Systems ENT: Reports system reviewed and no additional complaints, except as documented Respiratory: Respiratory: Reports cough Musculoskeletal: Musculoskeletal: Reports no additional musculoskeletal complaints PMFSH Past Medical History Medical History Osteoarthritis of left knee Hypersomnolence Renal calculi Diabetes COVID-19 vaccine administered COPD (chronic obstructive pulmonary disease) Allergic rhinitis KAYLEE on CPAP Obesity (BMI 30-39.9) Obesity Axillary hidradenitis suppurativa GERD (gastroesophageal reflux disease) Asthma Arthritis Hypertension Hyperlipidemia Surgical History S/P total knee arthroplasty (09/20/22) History of carpal tunnel release Hx of knee surgery Hx of cystoscopy History of esophagogastroduodenoscopy (EGD) H/O colonoscopy Hx of total knee replacement History of salpingoophorectomy H/O lithotripsy H/O hemicolectomy H/O tubal ligation Hx of cholecystectomy S/P laparoscopic sleeve gastrectomy Family History Family History Mother No problems noted. Father No problems noted. Son No problems noted. Daughter No problems noted. Son No problems noted. Sister No problems noted. Sister No problems noted. Brother No problems noted. Brother No problems noted. Brother No problems noted. Brother No problems noted. 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 Physical Exam ED Vital Signs: Vital Signs - 24 hr 06/19/23 07:37 06/19/23 09:19 06/19/23 15:04 Temperature 100.1 F 99.0 F 98.4 F Pulse Rate 109 H 98 98 Respiratory Rate 16 14 14 Blood Pressure 175/85 H 117/68 105/78 Pulse Oximetry 97 96 97 Oxygen Delivery Method Room Air Room Air Room Air BMI result Body Mass Index 36.8 She looks well she has not toxic-appearing sitting in the stretcher in not acute distress Const General: cooperative Nutritional Appearance: well nourished Orientation/consciousness: patient oriented x3 Limitations: no limitations HENMT Head: Yes normal to inspection General nose exam: Normal external nose present Mouth: Normal oral and palatal mucosa present Neck Neck: Yes normal visual inspection Resp Effort & Inspection: normal respiratory effort Auscultation: rhonchi Cardio Jugular venous distension: no JVD Rate: regular rate Rhythm: regular rhythm GI Inspection: Yes normal to inspection Palpation (GI): Soft to palpation Skin General skin exam: no rashes or lesions noted and elasticity normal Neuro General: patient oriented x3 Extrem General: Yes normal to inspection and Yes full ROM Course Reevaluation(s) Reevaluation #1: FEELS BETTER RECEIVED 2 GR mAGNESIUM WILL RECHECK LEVEL Time: 11:20 Reevaluation #2: REPEAT MAGNESIUM 1.4 REPEAT K 3.0 WILL GIVE THE PATIENT ANOTHER 2 G OF MAGNESIUM AND ANOTHER DOSE OF POTASSIUM THIS TIME 40 MEQ CLINICALLY SHE IS FEELING BETTER Reevaluation #3: Completed the 2nd dose of IV magnesium on re-examination patient is feeling much better. Plan discharge. I will send her home on p.o. magnesium I will also give empirically on antibiotic she is coffee productive she has a elevated white count. Time: 14:36 Medications Administered Discontinued Medications Generic Name Dose Route Start Last Admin Trade Name Marcial PRN Reason Stop Dose Admin Acetaminophen 975 mg 06/19/23 07:44 06/19/23 07:56 Acetaminophen 325 Mg Tablet PO 06/19/23 07:45 975 mg ONCE ONE Administration Magnesium Sulfate 2 gm in 50 mls @ 25 mls/hr 06/19/23 08:58 06/19/23 11:30 Magnesium Sulfate/H2o IV 06/19/23 10:57 Infused ONCE ONE Infusion Magnesium Sulfate/Dextrose 1 gm in 100 mls @ 300 mls/hr 06/19/23 12:23 06/19/23 13:20 Magnesium Sulfate/D5w IV 06/19/23 12:42 Infused ONCE ONE Infusion Potassium Chloride 20 meq 06/19/23 09:45 06/19/23 10:35 Potassium Chloride Er 20 Meq Tab.Er.Prt PO 06/19/23 09:46 20 meq ONCE ONE Administration Potassium Chloride 40 meq 06/19/23 12:24 06/19/23 12:57 Potassium Chloride Er 20 Meq Tab.Er.Prt PO 06/19/23 12:25 40 meq ONCE ONE Administration Medical Decision Making Medical Decision Making [facility] Narrative: 57 years old female presented with multiple complaints including called the symptoms extremity numbness will obtain labs chest x-ray and reassess Differential Diagnosis Differential Diagnoses: The differential diagnosis associated with the presentation includes Broad differential diagnosis which included a pneumonia/viral syndrome/influenza/COVID Admission/Observation Consideration of admission/observation: Escalation of care including admission/observation considered Lab Data [facility] Lab Attestation statement: I reviewed the patient's lab results. 06/19/23 08:05 06/19/23 11:39 Labs: Lab Results 06/19/23 06/19/23 06/19/23 Range/Units 08:00 08:05 11:39 WBC 15.2 H (4.8-10.8) X10*3/uL RBC 4.63 (4.20-5.50) X10*6/uL Hgb 12.2 (12.0-16.0) g/dl Hct 37.1 (37.0-47.0) % MCV 80.1 (80.0-98.0) fL MCH 26.3 L (27.0-33.0) pg MCHC 32.9 (31.0-35.0) g/dl RDW 14.6 (11.0-16.0) % Plt Count 304 (160-400) X10*3/uL MPV 10.5 (9.4-12.3) fL Immature Gran % (Auto) 0.4 (0.0-0.4) % Neut % (Auto) 81.9 H (45-73) % Lymph % (Auto) 11.1 L (20-40) % Nelson % (Auto) 6.3 (2-11) % Eos % (Auto) 0.1 (0-4) % Baso % (Auto) 0.2 (0-2) % Lymph # (Auto) 1.7 (1.2-4.9) X10*3/uL Nelson # (Auto) 1.0 (0.1-1.2) X10*3/uL Eos # (Auto) 0.0 (0.0-0.4) X10*3/uL Baso # (Auto) 0.0 (0.0-0.2) X10*3/uL Abs Immat Gran (auto) 0.06 H (0.00-0.03) X10*3/uL Absolute Neuts (auto) 12.4 H (2.0-8.3) x10*3/uL Absolute Nucleated RBC 0.000 (0.0-0.012) X10*3/uL Nucleated RBC % (auto) 0.0 (0.0-0.2) /100WBC Sodium 141 (135-145) mmol/L Potassium 3.2 L 3.0 L (3.3-5.1) mmol/L Chloride 101 (96-108) mmol/L Carbon Dioxide 29 (22-29) mmol/L Anion Gap 14 (12-20) BUN 9 (9-16) mg/dL Creatinine 1.02 (0.5-1.4) mg/dL Estim Creat Clear Calc 60.0 Estimated GFR 55 Random Glucose 115 (60-115) mg/dL Calcium 8.1 L D (8.4-10.2) mg/dL Magnesium < 0.6 L* 1.4 L* (1.6-2.6) mg/dL Total Bilirubin 0.7 (0.0-1.0) mg/dL AST 19 (5-31) U/L ALT 17 (0-31) U/L Alkaline Phosphatase 123 H (39-117) U/L Troponin I High Sens < 2.7 (<3.5-17.0) ng/L Total Protein 7.5 (6.5-8.0) g/dL Albumin 3.8 (3.5-5.0) g/dL Influenza Type A (PCR) NEGATIVE (Negative) Influenza Type B (PCR) NEGATIVE (Negative) RSV RNA Qual (PCR) NEGATIVE (Negative) SARS-CoV-2 RNA (RT-PCR) NEGATIVE (Negative) Independent Interpretation I performed an independent interpretation of an: Plain X-Ray Radiology Impression Discussion of test interpretation with radiology: I have reviewed the radiologist's reading. Independent Historian Clinical information obtained from an independent historian. History obtained from or confirmed by: Spouse and Other Chronic Conditions Patient?s care impacted by: Other (copd) Discharge Plan Discharge Clinical Impression: Hypomagnesemia, Bronchitis Patient Disposition: Home, Self-Care Instructions: Acute Bronchitis (ED), Hypomagnesemia (ED) Additional Instructions: Follow-up with your primary care physician return to the emergency room if you worse any concern Prescriptions: New magnesium oxide 400 mg magnesium capsule 400 mg PO DAILY Qty: 30 0RF amoxicillin 500 mg capsule 500 mg PO TID Qty: 21 0RF No Action fluticasone propion-salmeterol [Advair Diskus] 250-50 mcg/dose blister with device 1 ea PO BID Qty: 60 5RF (DME) walker Misc See Rx Instructions .MEDSUPPLY Qty: 1 0RF Rx Instructions: Folding Front wheeled walker celecoxib 200 mg capsule 200 mg PO BID Qty: 60 3RF cholecalciferol (vitamin D3) 25 mcg (1,000 unit) tablet 25 mcg PO DAILY Qty: 90 3RF albuterol sulfate [Ventolin HFA] 90 mcg/actuation HFA aerosol inhaler 1 puff PO Q4-6H PRN (Reason: for wheezing) Qty: 18 0RF albuterol sulfate 2.5 mg /3 mL (0.083 %) solution for nebulization 2.5 mg inhalation Q4H PRN (Reason: shortness of breath or wheezing) Qty: 75 0RF citalopram 40 mg tablet 1 tab PO QAM hydroxyzine HCl 25 mg tablet 1 tab PO BEDTIME PRN (Reason: itch) docusate sodium 100 mg Capsule 100 mg PO BID 14 Days Qty: 28 0RF cyclobenzaprine 10 mg tablet 10 mg PO TID PRN (Reason: muscle spasm) Qty: 10 0RF zolpidem 10 mg tablet 10 mg PO BEDTIME PRN (Reason: Insomnia) lorazepam 0.5 mg tablet 0.5 mg PO BID PRN (Reason: Anxiety) furosemide 40 mg tablet 40 mg PO DAILY epinephrine 0.3 mg/0.3 mL auto-injector 0.3 mg IM Q10M PRN (Reason: Anaphylaxis) Rx Instructions: for 2 doses pantoprazole 40 mg tablet,delayed release (DR/EC) 40 mg PO DAILY docusate sodium [Colace] 100 mg capsule 100 mg PO BID montelukast 10 mg tablet 10 mg PO BEDTIME loratadine 10 mg capsule 10 mg PO DAILY fluticasone propionate [Flonase Allergy Relief] 50 mcg/actuation spray,suspension 1 spray intranasal DAILY Rx Instructions: administer into each nostril atorvastatin 40 mg tablet 40 mg PO BEDTIME (DME) lancets [Easy Touch Twist Lancets] 33 gauge misc See Rx Instructions .ROUTE BID Qty: 100 Rx Instructions: As directed (DME) FreeStyle Lite Strips Strip See Rx Instructions .ROUTE BID Qty: 10 Rx Instructions: As directed thiamine HCl (vitamin B1) 100 mg tablet 100 mg PO DAILY Qty: 90 3RF multivitamin with folic acid [Daily-Royal (with folic acid)] 400 mcg tablet 1 tab PO DAILY magnesium oxide 250 mg magnesium tablet 250 mg PO DAILY cyanocobalamin (vitamin B-12) [Vitamin B-12] 1,000 mcg tablet 1,000 mcg PO DAILY tramadol 50 mg tablet 50 mg PO Trulicity 0.75 mg/0.5 mL pen injector subcut QWEEK ipratropium bromide 21 mcg (0.03 %) spray,non-aerosol 1 - 2 spray intranasal PRN Discharge Date/Time: 06/19/23 15:07
[2023-06-19] MEDS: Acetaminophen 325 MG TABLET 975 MG PO (07:56)
[2023-06-19 08:09] LABS: MANUAL DIFF FLAG NO
[2023-06-19 08:11] LABS: Basophils Percent Auto 0.2 % (0-2); Eosinophils Percent Auto 0.1 % (0-4); Hematocrit 37.1 % (37.0-47.0); Hemoglobin 12.2 g/dl (12.0-16.0); Imm Gran Abs Auto 0.06 X10*3/uL (0.00-0.03); Imm Gran Pct Auto 0.4 % (0.0-0.4); Lymphocytes Absolute Auto 1.7 X10*3/uL (1.2-4.9); Lymphocytes Percent Auto 11.1 % (20-40); Mean Corpuscular HGB Conc 32.9 g/dl (31.0-35.0); Mean Corpuscular Hemoglobin 26.3 pg (27.0-33.0); Mean Corpuscular Volume 80.1 fL (80.0-98.0); Mean Platelet Volume 10.5 fL (9.4-12.3); Monocytes Percent Auto 6.3 % (2-11); Neutrophils Absolute Auto 12.4 x10*3/uL (2.0-8.3); Neutrophils Percent Auto 81.9 % (45-73); Platelet Count 304 X10*3/uL (160-400); Red Blood Count 4.63 X10*6/uL (4.20-5.50); Red Cell Distribution Width 14.6 % (11.0-16.0); White Blood Count 15.2 X10*3/uL (4.8-10.8)
[2023-06-19 08:44] LABS: Alanine Aminotransferase 17 U/L (0-31); Albumin Level 3.8 g/dL (3.5-5.0); Alkaline Phosphatase 123 U/L (39-117); Anion Gap 14 (12-20); Aspartate Amino Transferase 19 U/L (5-31); Bilirubin Total 0.7 mg/dL (0.0-1.0); Blood Urea Nitrogen 9 mg/dL (9-16); Calcium 8.1 mg/dL (8.4-10.2); Carbon Dioxide 29 mmol/L (22-29); Chloride 101 mmol/L (96-108); Estimated Glomerular Filt Rate 55; Glucose Random 115 mg/dL (60-115); Potassium 3.2 mmol/L (3.3-5.1); Sodium 141 mmol/L (135-145); Total Protein 7.5 g/dL (6.5-8.0); Troponin-I High Sensitivity < 2.7 ng/L (<3.5-17.0)
[2023-06-19 08:57] LABS: Magnesium < 0.6 mg/dL (1.6-2.6)
[2023-06-19 09:02] LABS: Influenza A PCR NEGATIVE (Negative); Influenza B PCR NEGATIVE (Negative); Resp Syncy Virus RNA Qual PCR NEGATIVE (Negative); SARS COV2 PCR INHOUSE NEGATIVE (Negative)
[2023-06-19] MEDS: Magnesium Sulfate/H2O 2 GM/50 ML PIGGYBACK IV (09:18)
[2023-06-19 09:19] VITALS: BP 117/68; PULSE 98; RESP 14; TEMP 37.2; O2SAT 96
[2023-06-19] MEDS: Potassium Chloride ER 20 MEQ TAB.ER.PRT PO (10:35)
[2023-06-19 12:22] LABS: Magnesium 1.4 mg/dL (1.6-2.6)
[2023-06-19] MEDS: Potassium Chloride ER 20 MEQ TAB.ER.PRT 40 MEQ PO (12:57)
[2023-06-19] MEDS: Magnesium Sulfate/D5W 1 GM/100 ML PIGGYBACK IV (12:57)
[2023-06-19 15:04] VITALS: BP 105/78; PULSE 98; RESP 14; TEMP 36.9; O2SAT 97
== END 2023-06-19 15:07 | disposition home or self-care (01) ==
PROVIDERS: Emergency Provider Emergency Medicine; PCP Internal Medicine
DX: J40 Bronchitis, not specified as acute or chronic (principal); E83.42 Hypomagnesemia; R07.89 Other chest pain; R00.0 Tachycardia, unspecified; Z20.822 Contact with and (suspected) exposure to COVID-19; Z20.828 Contact with and (suspected) exposure to other viral communicable diseases; Z79.899 Other long term (current) drug therapy
CPT/HCPCS: 0241U; 36415; 71045; 80053; 83735; 84132; 84484; 85025; 93005; 96365; 96366; 99284; J3475

== ENCOUNTER → 2023-06-19 07:43 | Outpatient (BNV) | payer MEDICAID, SELFPAY | PROVIDERS: Emergency Provider Emergency Medicine; PCP Internal Medicine; Visit Provider Internal Medicine Cardiovascular Disease | DX: R07.9 Chest pain, unspecified (principal) | CPT/HCPCS: 93010 ==

== ENCOUNTER 2023-06-22 14:28 | Outpatient (REF) | payer MEDICAID, SELFPAY ==
[2023-06-22 16:13] LABS: Anion Gap 15 (12-20); Blood Urea Nitrogen 8 mg/dL (9-16); Calcium 9.9 mg/dL (8.4-10.2); Carbon Dioxide 29 mmol/L (22-29); Chloride 101 mmol/L (96-108); Estimated Glomerular Filt Rate > 60; Glucose Random 101 mg/dL (60-115); Magnesium 1.5 mg/dL (1.6-2.6); Potassium 3.1 mmol/L (3.3-5.1); Sodium 142 mmol/L (135-145)
== END 2023-06-22 14:29 | disposition home or self-care (01) ==
LOC: HO.HHCL 14:28
PROVIDERS: Visit Provider Emergency Medicine
DX: E87.6 Hypokalemia (principal); E83.42 Hypomagnesemia
CPT/HCPCS: 36415; 80048; 83735

== ENCOUNTER 2023-07-10 10:57 | Outpatient (REF) | payer MEDICAID, SELFPAY ==
[2023-07-10 13:27] LABS: Anion Gap 13 (12-20); Blood Urea Nitrogen 13 mg/dL (9-16); Calcium 10.1 mg/dL (8.4-10.2); Carbon Dioxide 30 mmol/L (22-29); Chloride 102 mmol/L (96-108); Estimated Glomerular Filt Rate 52; Glucose Random 102 mg/dL (60-115); Magnesium 1.8 mg/dL (1.6-2.6); Potassium 4.2 mmol/L (3.3-5.1); Sodium 141 mmol/L (135-145)
== END 2023-07-10 10:58 | disposition home or self-care (01) ==
LOC: HO.HHCL 10:57
PROVIDERS: Visit Provider Emergency Medicine
DX: E87.6 Hypokalemia (principal); E83.42 Hypomagnesemia
CPT/HCPCS: 36415; 80048; 83735

== ENCOUNTER 2023-07-17 10:56 | Emergency (ER) | payer MEDICAID, SELFPAY ==
--- NOTE | ~2023-07-17 | XR_ITS ---
EXAMINATION: XR FOOT, RIGHT CLINICAL INFORMATION: Pain, injury COMPARISON: None available. TECHNIQUE: AP, lateral, and oblique views of the right foot. FINDINGS: The bones and soft tissues are normal. No fracture. Alignment is anatomic. Joint spaces are maintained. XR/XR foot RT min 3V IMPRESSION: Normal right foot.
--- NOTE | ~2023-07-17 | US_ITS ---
EXAMINATION: US VENOUS ULTRASOUND WITH DOPPLER LOWER EXTREMITY, RIGHT CLINICAL INFORMATION: Right lower extremity pain. COMPARISON: Bilateral lower extremity ultrasound 04/08/2022. TECHNIQUE: Ultrasound of the deep veins is performed from the hip to the calf with compression sonography and color and pulse Doppler assessment. Spectral analysis with color-flow imaging is performed. FINDINGS: There is normal venous compression and respiratory variation and augmented flow. The visualized common femoral vein, superficial femoral vein, profunda femoral vein, popliteal vein, and the trifurcation region shows no evidence of deep venous thrombosis. There is no significant popliteal fossa cyst. If the patient's symptoms persist, followup ultrasound in 5 days 7 days might be of value to exclude proximal propagation from a non-visualized calf vein. US/US venous duplex LE RT IMPRESSION: No DVT demonstrated in the right lower extremity.
[2023-07-17 11:43] VITALS: BP 124/74; PULSE 93; RESP 18; TEMP 36.2; O2SAT 96; BMI 37.6
--- NOTE | 2023-07-17 11:43 | ED_ITS ---
HPI - General Adult General Chief complaint: Extremity Injury, Lower Stated complaint: r foot pain Time Seen by Provider: 07/17/23 16:11 Source: patient Mode of arrival: ambulatory Limitations: no limitations History of Present Illness HPI narrative: [age] year female history of obesity, KAYLEE, GERD, diabetes, COPD, hypertension, hyperlipidemia, right foot tendinitis, arthritis and asthma presents with right foot pain and swelling, ongoing since Monday, patient reports this is atraumatic in nature. Reports she went to go see Podiatry to get her nails trimmed today and she pointed out to her [employer] that her right foot appeared swollen. No history of DVT or PE. Not on blood thinners. Denies fevers, chills, numbness, tingling, blunt trauma, chest pain, shortness of breath, headache, vision changes, dizziness and weakness. Related Data Home Medications Medication Instructions Recorded Confirmed atorvastatin 40 mg tablet 40 mg PO BEDTIME 02/27/20 06/14/23 docusate sodium 100 mg capsule 100 mg PO BID 02/27/20 06/14/23 (Colace) epinephrine 0.3 mg/0.3 mL 0.3 mg IM Q10M PRN Anaphylaxis 02/27/20 06/14/23 injection, auto-injector fluticasone propionate 50 1 spray intranasal DAILY 02/27/20 06/14/23 mcg/actuation nasal spray,suspension (Flonase Allergy Relief) furosemide 40 mg tablet 40 mg PO DAILY 02/27/20 06/14/23 loratadine 10 mg capsule 10 mg PO DAILY 02/27/20 06/14/23 lorazepam 0.5 mg tablet 0.5 mg PO BID PRN Anxiety 02/27/20 06/14/23 montelukast 10 mg tablet 10 mg PO BEDTIME 02/27/20 06/14/23 pantoprazole 40 mg tablet,delayed 40 mg PO DAILY 02/27/20 06/14/23 release zolpidem 10 mg tablet 10 mg PO BEDTIME PRN Insomnia 02/27/20 06/14/23 citalopram 40 mg tablet 1 tab PO QAM 11/05/20 06/14/23 hydroxyzine HCl 25 mg tablet 1 tab PO BEDTIME PRN itch 11/05/20 06/14/23 cyanocobalamin (vitamin B-12) 1,000 mcg PO DAILY 08/17/22 06/14/23 1,000 mcg tablet (Vitamin B-12) magnesium oxide 250 mg PO DAILY 08/17/22 06/14/23 multivitamin with folic acid 400 1 tab PO DAILY 08/17/22 06/14/23 mcg tablet (Daily-Royal (with folic acid)) dulaglutide 0.75 mg/0.5 mL mg subcut QWEEK 12/14/22 06/14/23 subcutaneous pen injector (Trulicity) tramadol 50 mg tablet 50 mg PO severe pain 12/14/22 06/14/23 blood sugar diagnostic (FreeStyle #10 ea 03/20/23 06/14/23 Lite Strips) lancets 33 gauge (Easy Touch Twist #100 ea 03/20/23 06/14/23 Lancets) ipratropium bromide 21 mcg (0.03 1 - 2 spray intranasal PRN 06/02/23 06/14/23 %) nasal spray Previous Rx's Medication Instructions Recorded albuterol sulfate 2.5 mg/3 mL 2.5 mg (3 mL) inhalation Q4H PRN 10/30/20 (0.083 %) solution for nebulization shortness of breath or wheezing #75 mL fluticasone 250 mcg-salmeterol 50 1 ea PO BID #60 ea 06/21/22 mcg/dose blistr powdr for inhalation (Advair Diskus) docusate sodium 100 mg capsule 100 mg PO BID 14 days #28 caps 09/22/22 walker #1 ea 09/23/22 celecoxib 200 mg capsule 200 mg PO BID #60 caps 11/17/22 cyclobenzaprine 10 mg tablet 10 mg PO TID PRN muscle spasm #10 01/30/23 tabs cholecalciferol (vitamin D3) 25 25 mcg PO DAILY #90 tabs 05/17/23 mcg (1,000 unit) tablet amoxicillin 500 mg capsule 500 mg PO TID #21 caps 06/19/23 magnesium oxide 400 mg PO DAILY low magnesium #30 06/19/23 caps albuterol sulfate 90 mcg/actuation 1 puff PO Q4-6H PRN for wheezing 06/20/23 aerosol inhaler (Ventolin HFA) #18 ea thiamine HCl (vitamin B1) 100 mg 100 mg PO DAILY #90 tabs 02/22/24 tablet prednisone 20 mg tablet 40 mg (2 x 20 mg) PO DAILY 5 days 07/17/23 #10 tabs Allergies Allergy/AdvReac Type Severity Reaction Status Date / Time sulfamethoxazole Allergy Intermediate RASH Verified 07/17/23 11:43 [From Bactrim] Review of Systems Review of Systems: Yes all other systems are reviewed and are negative [facility] Past Medical History Attestation statement: The following information was validated with the patient. Source: old records reviewed and nursing notes reviewed Medical History Osteoarthritis of left knee Hypersomnolence Renal calculi Diabetes COVID-19 vaccine administered COPD (chronic obstructive pulmonary disease) Allergic rhinitis KAYLEE on CPAP Obesity (BMI 30-39.9) Obesity Axillary hidradenitis suppurativa GERD (gastroesophageal reflux disease) Asthma Arthritis Hypertension Hyperlipidemia Surgical History S/P total knee arthroplasty (09/20/22) History of carpal tunnel release Hx of knee surgery Hx of cystoscopy History of esophagogastroduodenoscopy (EGD) H/O colonoscopy Hx of total knee replacement History of salpingoophorectomy H/O lithotripsy H/O hemicolectomy H/O tubal ligation Hx of cholecystectomy S/P laparoscopic sleeve gastrectomy Family History Family History Mother No problems noted. Father No problems noted. Son No problems noted. Daughter No problems noted. Son No problems noted. Sister No problems noted. Sister No problems noted. Brother No problems noted. Brother No problems noted. Brother No problems noted. Brother No problems noted. 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 Oriented X3.? No acute distress.? Head: Normocephalic, atraumatic, no step-offs or deformities Eyes: Pupils equal, round and reactive to light.? ENT: Pharynx normal.? Neck: Normal inspection.? Neck supple.? CVS: Normal heart rate and rhythm.? Pulses normal.? Respiratory: No respiratory distress.? Breath sounds normal.? Abdomen: Soft and nontender.? Skin: Skin warm and dry.? Normal skin color.? Normal skin turgor.? Extremities: No lower extremity edema.? No calf ttp. 5/5 strength to bilateral upper and lower extremities 2+ dp, at,pt pulses equal and b/l. Normal sensation distally. Cap refil < 2 seconds b/l LE. Slight swelling to the R foot. w/ ttp throughout entire foot. No point tenderness. Neuro: Oriented X 3.? No motor deficit.? No sensory deficit. CN 2-12 intact Course Course Course Narrative: RME performed by Zeina Leiva PA-C. Patient is a 57 year old assigned female at presenting to the emergency department with right foot pain. Detailed physical exam and review of systems are deferred to the care manager cna. Imaging ordered. Patient placed back in the waiting room pending room availability and results. Reevaluation(s) Reevaluation #1: X-ray of foot with normal right foot. Venous duplex pending. Signed out to VERÓNICA lehman. Time: 18:27 Reevaluation #2: X-ray negative for fracture. Ultrasound negative for blood clot. Patient is safe for discharge Time: 19:17 Medications Administered Discontinued Medications Generic Name Dose Route Start Last Admin Trade Name Freq PRN Reason Stop Dose Admin Acetaminophen 975 mg 07/17/23 16:43 07/17/23 16:52 Acetaminophen 325 Mg Tablet PO 07/17/23 16:44 975 mg ONCE ONE Administration Medical Decision Making Medical Decision Making MDM Narrative: 57-year-old female presents with atraumatic right foot pain and swelling. Ongoing since Monday. No history of DVT or PE. Not on thinners. Physical exam significant for No lower extremity edema.? No calf ttp. 5/5 strength to bilateral upper and lower extremities 2+ dp, at,pt pulses equal and b/l. Normal sensation distally. Cap refil < 2 seconds b/l LE. Slight swelling to the R foot. w/ ttp throughout entire foot. No point tenderness. Concerns for inflammatory arthritis versus tendinitis versus gout versus pseudogout. Unlikely DVT, arterial occlusion, fracture dislocation. No signs of neurovascular compromise, acute threat to limb. Plan at this time imaging. Differential Diagnosis Differential Diagnoses: The differential diagnosis associated with the presentation includes Concerns for inflammatory arthritis versus tendinitis versus gout versus pseudogout. Unlikely DVT, arterial occlusion, fracture dislocation. No signs of neurovascular compromise, acute threat to limb. Admission/Observation Consideration of admission/observation: Escalation of care including admission/observation considered Unlikely Independent Interpretation I performed an independent interpretation of an: Plain X-Ray (XR/XR foot RT min 3V IMPRESSION: Normal right foot.) and Ultrasound Radiology Impression Discussion of test interpretation with radiology: I have reviewed the radiologist's reading. External Record Review External record reviewed: Inpatient record, Office record, Outpatient record, Prior outpatient labs, Prior outpatient radiology, Primary care record and Outside ED record Prescription Management I considered prescription management with: Pain Medication Chronic Conditions Patient?s care impacted by: Diabetes, Hypertension and Other (HLD, COPD, GERD ) Critical Care Time Critical Care Time Critical Care Time: No Discharge Plan Discharge Clinical Impression: Acute pain of right foot Patient Disposition: Home, Self-Care Instructions: Arthralgia (ED) Additional Instructions: Take your medications as prescribed. If you were prescribed antibiotics today, it is important that you take your medication to their entirety, do not skip any doses, do not finish them early. Follow-up with your primary care provider this week. Return to the emergency department with new or worsening symptoms. Such as fevers, chills, chest pain, shortness of breath, nausea, vomiting, dizziness, headache, vision changes, lethargy In case of emergency call 911 Prescriptions: New prednisone 20 mg tablet 40 mg PO DAILY 5 Days Qty: 10 0RF No Action fluticasone propion-salmeterol [Advair Diskus] 250-50 mcg/dose blister with device 1 ea PO BID Qty: 60 5RF (DME) walker Misc See Rx Instructions .MEDSUPPLY Qty: 1 0RF Rx Instructions: Folding Front wheeled walker celecoxib 200 mg capsule 200 mg PO BID Qty: 60 3RF cholecalciferol (vitamin D3) 25 mcg (1,000 unit) tablet 25 mcg PO DAILY Qty: 90 3RF albuterol sulfate [Ventolin HFA] 90 mcg/actuation HFA aerosol inhaler 1 puff PO Q4-6H PRN (Reason: for wheezing) Qty: 18 0RF thiamine HCl (vitamin B1) 100 mg tablet 100 mg PO DAILY Qty: 90 3RF albuterol sulfate 2.5 mg /3 mL (0.083 %) solution for nebulization 2.5 mg inhalation Q4H PRN (Reason: shortness of breath or wheezing) Qty: 75 0RF citalopram 40 mg tablet 1 tab PO QAM hydroxyzine HCl 25 mg tablet 1 tab PO BEDTIME PRN (Reason: itch) docusate sodium 100 mg Capsule 100 mg PO BID 14 Days Qty: 28 0RF cyclobenzaprine 10 mg tablet 10 mg PO TID PRN (Reason: muscle spasm) Qty: 10 0RF magnesium oxide 400 mg magnesium capsule 400 mg PO DAILY Qty: 30 0RF amoxicillin 500 mg capsule 500 mg PO TID Qty: 21 0RF zolpidem 10 mg tablet 10 mg PO BEDTIME PRN (Reason: Insomnia) lorazepam 0.5 mg tablet 0.5 mg PO BID PRN (Reason: Anxiety) furosemide 40 mg tablet 40 mg PO DAILY epinephrine 0.3 mg/0.3 mL auto-injector 0.3 mg IM Q10M PRN (Reason: Anaphylaxis) Rx Instructions: for 2 doses pantoprazole 40 mg tablet,delayed release (DR/EC) 40 mg PO DAILY docusate sodium [Colace] 100 mg capsule 100 mg PO BID montelukast 10 mg tablet 10 mg PO BEDTIME loratadine 10 mg capsule 10 mg PO DAILY fluticasone propionate [Flonase Allergy Relief] 50 mcg/actuation spray,suspension 1 spray intranasal DAILY Rx Instructions: administer into each nostril atorvastatin 40 mg tablet 40 mg PO BEDTIME (DME) lancets [Easy Touch Twist Lancets] 33 gauge misc See Rx Instructions .ROUTE BID Qty: 100 Rx Instructions: As directed (DME) FreeStyle Lite Strips Strip See Rx Instructions .ROUTE BID Qty: 10 Rx Instructions: As directed multivitamin with folic acid [Daily-Royal (with folic acid)] 400 mcg tablet 1 tab PO DAILY magnesium oxide 250 mg magnesium tablet 250 mg PO DAILY cyanocobalamin (vitamin B-12) [Vitamin B-12] 1,000 mcg tablet 1,000 mcg PO DAILY tramadol 50 mg tablet 50 mg PO Trulicity 0.75 mg/0.5 mL pen injector subcut QWEEK ipratropium bromide 21 mcg (0.03 %) spray,non-aerosol 1 - 2 spray intranasal PRN Discharge Date/Time: 07/17/23 20:04 Print Language: Citizen [place]
[2023-07-17] MEDS: Acetaminophen 325 MG TABLET 975 MG PO (16:52)
[2023-07-17 17:05] VITALS: BP 112/72; PULSE 72; RESP 16; TEMP 36.2; O2SAT 97
== END 2023-07-17 20:04 | disposition home or self-care (01) ==
PROVIDERS: Emergency Provider Emergency Medicine; PCP Internal Medicine
DX: M79.671 Pain in right foot (principal); I10 Essential (primary) hypertension; E11.9 Type 2 diabetes mellitus without complications; J44.9 Chronic obstructive pulmonary disease, unspecified
CPT/HCPCS: 73630; 93971; 99283; 99284

== ENCOUNTER 2023-08-30 07:25 | Outpatient (REF) | payer MEDICAID, SELFPAY ==
--- NOTE | ~2023-08-30 | MR_ITS ---
EXAMINATION: MR ANKLE WITHOUT CONTRAST, RIGHT CLINICAL INFORMATION: Right ankle pain despite injections. Edema. Evaluate for lesion, tendon tear. COMPARISON: Right foot radiographs dated 07/17/2023. TECHNIQUE: MRI of the ankle was performed using routine sequences on a high-field scanner. FINDINGS: BONE AND ARTICULAR CARTILAGE: Patchy marrow edema within the lateral malleolus without an associated fracture line. Findings could represent a stress reaction or osseous contusion. No acute fracture or dislocation. Articular cartilage thinning with subchondral cystic change at the lateral cuneonavicular joint and lateral aspect of the talonavicular joint. The ankle mortise is maintained. No talar osteochondral lesion. Tiny plantar and dorsal calcaneal enthesophytes. ACHILLES TENDON: Mild thickening of the distal Achilles tendon with slightly increased intrasubstance T2 signal, consistent with chronic tendinosis. No transverse tendon tear or tendon retraction. OTHER TENDONS: Intact. LIGAMENTS: No evidence of acute ligament injury. JOINT FLUID AND SOFT TISSUES: No joint effusion. Subcutaneous soft tissues are normal. PLANTAR FASCIA: Mildly increased T2 signal and atrophy of the flexor digitorum brevis and abductor digiti minimi muscles deep to the plantar fascia which could represent early denervation injury. No measurable tear. Intact plantar fascia. SINUS TARSI AND TARSAL TUNNEL: Patent. MR/MR ankle RT wo con IMPRESSION: 1. Marrow edema within the lateral malleolus without an associated fracture line. Findings could represent a stress reaction or osseous contusion. 2. Mild degenerative arthritis at the lateral cuneonavicular joint and lateral aspect of the talonavicular joint. 3. Mild chronic Achilles tendinosis without a measurable tendon tear or tendon retraction. 4. Findings within the flexor digitorum brevis and abductor digiti minimi muscles deep to the plantar fascia which could represent early denervation injury. No measurable tear.
== END 2023-08-30 07:26 | disposition home or self-care (01) ==
LOC: HO.MRI 07:25
PROVIDERS: PCP Internal Medicine; Visit Provider Internal Medicine
DX: M25.471 Effusion, right ankle (principal); G89.29 Other chronic pain; M25.571 Pain in right ankle and joints of right foot; G56.02 Carpal tunnel syndrome, left upper limb; E11.9 Type 2 diabetes mellitus without complications; J44.9 Chronic obstructive pulmonary disease, unspecified
CPT/HCPCS: 73721; 99212

== ENCOUNTER 2023-08-30 10:35 | Outpatient (AMB) | payer MEDICAID, SELFPAY ==
[2023-08-30 11:02] VITALS: BMI 37.6
--- NOTE | 2023-08-30 11:02 | A.OFFVIS_ITS ---
Vital Signs 08/30/23 11:02 Height 5 ft 1 in Weight 199 lb BMI 37.6 Intake Visit Reasons: O/V discuss left hand CTR Intake Note: Ann-Marie 57 yr old female presents today for a follow up visit to discuss left hand CTR. Last seen with Mary Garcia and per her notes, patient had an EMG done 07/03/[address] Martell where patient was positive for CTS (moderate carpal tunnel syndrome bilaterally with no evidence of ulnar neuropathy). Hx of right hand CTR, MF and RF trigger release in 10/[address] Galaviz. States she wants to have CTR patrick. Allergies sulfamethoxazole [From Bactrim] Allergy (Intermediate, Verified 08/30/23 11:04) RASH HPI HPI O/V discuss left hand CTR : Details: Ann-Marie is a 57 year old right hand dominant Diabetic Slovenian speaking woman who presents to discuss her left carpal tunnel syndrome. She complains of numbness in the thumb, index, and middle fingers. Symptoms intermittent, but daily, worse at night or first thing in the mornings. She denies any small finger numbness. She says she gets cramping in her fingers, mostly in the mornings. She denies any locking or catching She has a hx of right carpal tunnel release, right middle trigger finger release, and right ring trigger finger release, DOS: 713/21. She says sensation in her right hand is normal and she is happy with the results of her surgery. [facility] Medical History Osteoarthritis of left knee Hypersomnolence Renal calculi Diabetes COVID-19 vaccine administered COPD (chronic obstructive pulmonary disease) Allergic rhinitis KAYLEE on CPAP Obesity (BMI 30-39.9) Obesity Axillary hidradenitis suppurativa GERD (gastroesophageal reflux disease) Asthma Arthritis Hypertension Hyperlipidemia Surgical History S/P total knee arthroplasty (09/20/22) History of carpal tunnel release Hx of knee surgery Hx of cystoscopy History of esophagogastroduodenoscopy (EGD) H/O colonoscopy Hx of total knee replacement History of salpingoophorectomy H/O lithotripsy H/O hemicolectomy H/O tubal ligation Hx of cholecystectomy S/P laparoscopic sleeve gastrectomy Family History Mother No problems noted. Father No problems noted. Son No problems noted. Daughter No problems noted. Son No problems noted. Sister No problems noted. Sister No problems noted. Brother No problems noted. Brother No problems noted. Brother No problems noted. Brother No problems noted. 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 Female Reproductive History Menstrual Age of Menarche: 7 Review of Systems Const All systems reviewed & are unremarkable except as noted in HPI and below Physical Exam Vital Signs: BMI result Body Mass Index 37.6 Const General: cooperative, healthy appearing and no acute distress Orientation/consciousness: patient oriented x3 HEENT Head: Yes normocephalic and Yes atraumatic Eyes EOM: EOMs intact bilaterally Resp Effort & Inspection: normal respiratory effort and able to speak in complete sentences Cardio Jugular venous distension: no JVD Skin General skin exam: turgor normal Rashes: no rashes Neuro General: patient oriented x3 Extrem Other: Evaluation of Left Upper Extremity: The patient is alert, oriented, and in no acute distress Neuro: Median, Ulnar, Radial nerves motor and sensory intact and sensation is normal to the tips of all digits bilaterally No thenar or intrinsic wasting Good APB muscle belly firing and good finger cross Vascular: Cap refill brisk ROM: She can make a fist and extend all her digits No locking or catching Skin: No lacerations or abrasions. General: No Ecchymosis. No Erythema or evidence of infection. Nerve Conduction study: Impression Moderate carpal tunnel syndrome bilaterally Dr. Martell 07/03/19 Psych Appearance: grossly normal Affect: normal affect Attitude: cooperative Assessment & Plan Assessment & Plan (1) Carpal tunnel syndrome of left wrist: Code(s): G56.02 - Carpal tunnel syndrome, left upper limb Category: Medical (2) Diabetes: Code(s): E11.9 - Type 2 diabetes mellitus without complications Category: Medical (3) COPD (chronic obstructive pulmonary disease): Comment: SHE HAS COMBINATION OF MILD ASTHMA, COPD AND RESTRICTIVE LUNG DISORDER Code(s): J44.9 - Chronic obstructive pulmonary disease, unspecified Category: Medical Plan Assessment & Plan: 1. Left carpal tunnel syndrome, moderate Symptoms intermittent, but daily, worse at night I educated her about this condition I discussed operative and non-operative treatment options The patient would like to proceed with surgery The risks and benefits of operative treatment were discussed with the patient and the patient wishes to proceed with surgery. These risks include, but are not limited to risk of damage to blood vessels, nerves, tendons, infection, recurrence, incomplete relief of preoperative symptoms, persistent pain, possible need for further surgery and the risks associated with regional blocks and anesthesia. The plan is to take the patient to the operating room sometime in the next few weeks for the following procedures: 1. Left carpal tunnel release, under local All of the preoperative paperwork including the consent was reviewed today. All the patient's questions were answered. The patient understands that they will be contacted by our lumber material handler soon to schedule this procedure. She would like to have her surgery soon, and would like to be placed on the cancellation list if possible. She denies blood thinners, asthma, heart, kidney issues She has COPD. She is a Diabetic. She says this is well-controlled but we do not have a recent HgA1c They will need an updated HgA1c that is <8.1% in order to proceed with surgery, and they expressed understanding 2. Right carpal tunnel syndrome, S/P release 3. Right middle finger trigger finger, S/P release 4. Right ring finger trigger finger, S/P release DOS: 11/10/20 With normal sensation and good resolution of her symptoms Scribed for Clari Galaviz MD by Nicholas Castillo, medical receptionist medical assistant, on 08/30/23 at 11:25 AM, EST. Coding Level of Care Code Est Pt Level 4 (44468) Diagnoses Carpal tunnel syndrome of left wrist G56.02 Diabetes E11.9 COPD (chronic obstructive pulmonary disease) J44.9
== END 2023-08-30 11:37 | disposition home or self-care (01) ==
PROVIDERS: PCP Internal Medicine; Referring Provider Internal Medicine; Visit Provider Orthopaedic Surgery
DX: G56.02 Carpal tunnel syndrome, left upper limb (principal); E11.9 Type 2 diabetes mellitus without complications; J44.9 Chronic obstructive pulmonary disease, unspecified
CPT/HCPCS: 99214

== ENCOUNTER 2023-09-15 07:43 | Outpatient (REF) | payer MEDICAID, SELFPAY ==
--- NOTE | ~2023-09-15 | XR_ITS ---
EXAMINATION: Upright views of both knees. Additional lateral patella view of the left knee CLINICAL INFORMATION: Pain in the left knee COMPARISON: Standing views of both knee and patellofemoral and lateral view of the left knee TECHNIQUE: . Standing view of both knees and lateral and patella view of the left knee FINDINGS: Left knee: There is a total knee arthroplasty in place. The components are in the usual position and are unchanged. There is no periprosthetic fracture or surrounding abnormal lucency. There is no effusion. The surrounding soft tissues are normal. Right knee limited AP upright: There is a total knee arthroplasty in place. The visualized components are in the usual position and are unchanged. Patella femoral compartment not assessed on this AP projection There is no periprosthetic fracture or surrounding abnormal lucency. There is no effusion. The surrounding soft tissues are normal. XR/XR knee LT 3V IMPRESSION: LEFT KNEE: Left total knee arthroplasty without change or complication by x-ray. RIGHT KNEE limited: Right total knee arthroplasty without change or complication by x-ray.
== END 2023-09-15 07:44 | disposition home or self-care (01) ==
LOC: HO.HOSX 07:43
PROVIDERS: Visit Provider Orthopaedic Surgery
DX: M25.562 Pain in left knee (principal); M25.362 Other instability, left knee; Z96.652 Presence of left artificial knee joint; Z91.81 History of falling
CPT/HCPCS: 73562; 99212

== ENCOUNTER 2023-09-15 12:33 | Outpatient (AMB) | payer MEDICAID, SELFPAY ==
--- NOTE | 2023-09-15 12:41 | MHC.OFFVIS ---
Intake Visit Reasons: Ov- S/P LT TKA 09/20/22 NE w/ XR Intake Note: Ann-Marie is a 57 year old female who presents today for a one year follow up of her Left Total Knee Replacement 09/20/22. Patient reports that she is having increased pain, cracking and instability of the left knee. She has taken multiple falls since July Allergies sulfamethoxazole [From Bactrim] Allergy (Intermediate, Verified 09/15/23 12:46) RASH HPI HPI Ov- S/P LT TKA 09/20/22 NE w/ XR: Details: Ann-Marie is 1 year s/p left TKA and she is describing a crunching sound with ROM and activity. She states she occasionally feels giving way. She quang fever and chills. She describes lots of joint pain but mostly her right ankle which requires that she use a cane. She is being treated for this at an [facility] and has a pending visit with a foot and ankle ortho surgeon [facility] Medical History Osteoarthritis of left knee Hypersomnolence Renal calculi Diabetes COVID-19 vaccine administered COPD (chronic obstructive pulmonary disease) Allergic rhinitis KAYLEE on CPAP Obesity (BMI 30-39.9) Obesity Axillary hidradenitis suppurativa GERD (gastroesophageal reflux disease) Asthma Arthritis Hypertension Hyperlipidemia Surgical History S/P total knee arthroplasty (09/20/22) History of carpal tunnel release Hx of knee surgery Hx of cystoscopy History of esophagogastroduodenoscopy (EGD) H/O colonoscopy Hx of total knee replacement History of salpingoophorectomy H/O lithotripsy H/O hemicolectomy H/O tubal ligation Hx of cholecystectomy S/P laparoscopic sleeve gastrectomy Family History Mother No problems noted. Father No problems noted. Son No problems noted. Daughter No problems noted. Son No problems noted. Sister No problems noted. Sister No problems noted. Brother No problems noted. Brother No problems noted. Brother No problems noted. Brother No problems noted. 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 Left total knee arthroplasty in expected post operative position with no hardware complications or evidence of loosening Assessment & Plan Assessment & Plan (1) Status post total knee replacement, left: Code(s): Z96.652 - Presence of left artificial knee joint Category: Surgical Plan: Left knee nl of radiographic and clinical exam. Her quad strength is limited and she is limping because of her right ankle. There is no additional orthopedic intervention warranted. Orders: Orders XR knee LT 3V Today M25.562 - Pain in left knee Coding Level of Care Code Est Pt Level 3 (66720) Diagnoses Status post total knee replacement, left Z96.652
== END 2023-09-15 15:00 | disposition home or self-care (01) ==
PROVIDERS: PCP Internal Medicine; Visit Provider Orthopaedic Surgery
DX: M25.562 Pain in left knee (principal); Z96.652 Presence of left artificial knee joint
CPT/HCPCS: 99213

== ENCOUNTER 2023-10-30 06:46 | Day surgery (SDC) | payer MEDICAID, SELFPAY ==
[2023-10-30 07:34] VITALS: BMI 38.7
--- NOTE | 2023-10-30 08:07 | MHC.SHP ---
Pre-Procedural Eval Section A - 24 Hr Update-Section A only Date of Service: 10/30/23 The patient is an INPATIENT: No The patient has been examined within 24 hours of the surgical procedure. The History & Physical has been completed within 30 days and I have reviewed it.: Yes Section B - Complete if H&P > 30 days Chief Complaint: Carpal tunnel syndrome, left upper limb Allergies: Allergies Allergy/AdvReac Type Severity Reaction Status Date / Time sulfamethoxazole Allergy Intermediate RASH Verified 09/15/23 12:46 [From Bactrim] Plan Diagnosis/Plan: Unchanged I have reviewed the history and physical and performed a pertinent physical examination on my patient. No changes have occurred unless specified. Time Spent With Patient Time: Total time managing care of this patient today ____ minutes.
--- NOTE | 2023-10-30 08:10 | W.PM.OPN ---
Operative Note Operative Note Date of Service: 10/30/23 Narrative: Preop diagnosis: 1. Left Carpal tunnel syndrome Postop diagnosis: same Procedure: 1. Left Carpal tunnel release Surgeon: Clari Galaviz MD Anesthesia: local block using 1% lidocaine with epinephrine Findings: Thickened transverse carpal ligament. EBL: Less than 5 mL Specimens: None Complications: None Disposition: Brought to recovery room in stable condition Plan: Follow-up for 10-14 days for wound check and suture removal Indications: The patient is 58 years old, with left carpal tunnel syndrome that has been unresponsive to nonoperative management. The risks and benefits of operative treatment including but not limited to risk of damage to blood vessels, nerves, tendons, infection, persistent pain, persistent symptoms, or possible need for additional surgery were discussed with the patient and the patient wishes to proceed with surgery. Procedure: Once consent was obtained a local block was performed using a combination of 1% lidocaine with epinephrine. The patient was then brought back to the operating suite and placed on the operative table in supine position. The left upper extremity was prepped and draped in a standard surgical fashion. Once assured that we had a good block, a 2.0 cm longitudinal incision was made centered over the carpal tunnel. The incision was made through the skin to the subcutaneous tissues using a #15 blade. Dissection was made down to the level of the transverse carpal ligament with care being taken to protect the palmar cutaneous nerve. Once the transverse carpal ligament was clearly visualized, a longitudinal incision was made in the transverse carpal ligament 1st using a #15 blade, then using tenotomy scissors under direct visualization. Care was taken to look for and protect the motor branch of the median nerve when seen in this area. Once satisfied with our carpal tunnel release the wound was copiously irrigated with normal saline and hemostasis was obtained with a brief period of local pressure. The skin edges were reapproximated with some 5.0 nylon suture material and a sterile dressing was applied. The patient appears to have tolerated the procedure well and with no complications. All digits were well vascularized at the conclusion of the case.
[2023-10-30 09:40] VITALS: BP 138/76; PULSE 95; RESP 18; O2SAT 95
== END 2023-10-30 10:20 | disposition home or self-care (01) ==
PROVIDERS: PCP Internal Medicine; Visit Provider Orthopaedic Surgery
PROC: (CPT 64721; principal; 2023-10-30 08:10)
DX: G56.02 Carpal tunnel syndrome, left upper limb (principal); R20.0 Anesthesia of skin; E11.9 Type 2 diabetes mellitus without complications; I10 Essential (primary) hypertension; E78.5 Hyperlipidemia, unspecified; G47.33 Obstructive sleep apnea (adult) (pediatric); J44.9 Chronic obstructive pulmonary disease, unspecified; E66.9 Obesity, unspecified; Z68.37 Body mass index [BMI] 37.0-37.9, adult; Z99.89 Dependence on other enabling machines and devices; Z88.2 Allergy status to sulfonamides; Z98.84 Bariatric surgery status; Z98.890 Other specified postprocedural states
CPT/HCPCS: 64721; J0171

== ENCOUNTER → 2023-10-30 06:46 | Outpatient (BNV) | payer MEDICAID, SELFPAY | PROVIDERS: PCP Internal Medicine; Visit Provider Orthopaedic Surgery | DX: G56.02 Carpal tunnel syndrome, left upper limb (principal) | CPT/HCPCS: 64721 ==

== ENCOUNTER 2023-11-15 12:32 | Outpatient (AMB) | payer MEDICAID, SELFPAY ==
--- NOTE | 2023-11-15 13:20 | A.OFFVIS_ITS ---
Intake Visit Reasons: PO LT CTR 10/30/23 AR Intake Note: Ann-Marie is a 58 year old female who presents today for a post op appointment s/p LT CTR 10/30/23 AR. Patient reports her symptoms has improved. She states that she has pets in the house and wanted to know if she can cover the area. Allergies sulfamethoxazole [From Bactrim] Allergy (Intermediate, Verified 11/15/23 13:30) RASH HPI HPI PO LT CTR 10/30/23 AR: Details: 58-year-old female, who is Palestinian speaking, presents in the office today 16 days status post left carpal tunnel release, which was performed on 10/30/[address] Galaviz. ? ? While in the office today, the patient reports her symptoms have improved. She confirms having pets in the home and would like to know if she should cover the area. ? PFSH Medical History Osteoarthritis of left knee Hypersomnolence Renal calculi Diabetes COVID-19 vaccine administered COPD (chronic obstructive pulmonary disease) Allergic rhinitis KAYLEE on CPAP Obesity (BMI 30-39.9) Obesity Axillary hidradenitis suppurativa GERD (gastroesophageal reflux disease) Asthma Arthritis Hypertension Hyperlipidemia Surgical History S/P total knee arthroplasty (09/20/22) History of carpal tunnel release Hx of knee surgery Hx of cystoscopy History of esophagogastroduodenoscopy (EGD) H/O colonoscopy Hx of total knee replacement History of salpingoophorectomy H/O lithotripsy H/O hemicolectomy H/O tubal ligation Hx of cholecystectomy S/P laparoscopic sleeve gastrectomy Family History Mother No problems noted. Father No problems noted. Son No problems noted. Daughter No problems noted. Son No problems noted. Sister No problems noted. Sister No problems noted. Brother No problems noted. Brother No problems noted. Brother No problems noted. Brother No problems noted. 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 Sutures are intact. No surrounding erythema or drainage. No signs of infection. Mild to moderate stiffness with wrist extension and flexion. Able to make closed fist. Able to perform full finger extension, abduction, adduction, finger cross, okay sign and thumbs up without deficit. NVI.? Assessment & Plan Assessment & Plan (1) Carpal tunnel syndrome of left wrist: Comment: S/P Carpal tunnel release on 10/30/2023 AR Code(s): G56.02 - Carpal tunnel syndrome, left upper limb Category: Surgical Plan Ms. Flores is a 58-year-old female, who is Palestinian speaking, presents in the office today 16 days status post left carpal tunnel release, which was performed on 10/30/[address] Galaviz. ? ? While in the office today, the patient reports her symptoms have improved. She confirms having pets in the home and would like to know if she should cover the area.? ? Sutures were removed and steri-stripes were applied. A referral was made for the patient to attend occupational therapy. She does report her symptoms have improved since surgery; however, she has some stiffness with ROM of the wrist. Follow-up will be in four weeks for a ROM check, or sooner if needed. ? Orders: Orders OT Evaluation and Treatment Today G56.02 - Carpal tunnel syndrome, left upper limb Patient Instructions: Scribed by Breana Yeung medical affairs leader, for Tamela Patel PA-C on 11/15/2023 at 12:36 pm, EST.? Coding Level of Care Code Global (51079) Diagnoses Carpal tunnel syndrome of left wrist G56.02
== END 2023-11-15 13:39 | disposition home or self-care (01) ==
PROVIDERS: PCP Internal Medicine; Visit Provider Physician Assistant
DX: G56.02 Carpal tunnel syndrome, left upper limb (principal)
CPT/HCPCS: 99024

== ENCOUNTER → 2023-11-15 12:32 | Outpatient (BNVA) | payer MEDICAID, SELFPAY | PROVIDERS: PCP Internal Medicine; Visit Provider Physician Assistant | DX: Z48.811 Encounter for surgical aftercare following surgery on the nervous system (principal); Z86.69 Personal history of other diseases of the nervous system and sense organs | CPT/HCPCS: 99212 ==

== ENCOUNTER 2023-12-13 10:05 | Outpatient (AMB) | payer MEDICAID, SELFPAY ==
--- NOTE | 2023-12-13 10:07 | A.OFFVIS_ITS ---
Vital Signs 12/13/23 10:09 Height 5 ft 1 in Weight 212 lb 11.937 oz BMI 40.2 BP 118/72 Blood Pressure Location Rt brachial Position Sitting Pulse 86 Pulse Source Pulse Oximeter Pulse Oximetry (%) 97 Oxygen Delivery Method Room Air Intake Visit Reasons: kaylee Allergies sulfamethoxazole [From Bactrim] Allergy (Intermediate, Verified 12/13/23 10:20) RASH Medication List - Last Reconciled 12/13/23 by Deb Schafer albuterol sulfate 2.5 mg (3 mL) inhalation Q4H PRN albuterol sulfate 90 mcg/actuation (Ventolin HFA) 1 puff PO Q4-6H PRN atorvastatin 40 mg PO BEDTIME blood sugar diagnostic (FreeStyle Lite Strips) As directed celecoxib 200 mg PO BID cholecalciferol (vitamin D3) 25 mcg PO DAILY citalopram 1 tab PO QAM cyanocobalamin (vitamin B-12) (Vitamin B-12) 1,000 mcg PO DAILY cyclobenzaprine 10 mg PO TID PRN docusate sodium 100 mg PO BID 14 days docusate sodium (Colace) 100 mg PO BID dulaglutide (Trulicity) mg subcut QWEEK epinephrine 0.3 mg IM Q10M PRN fluticasone propion-salmeterol 250-50 mcg/dose (Advair Diskus) 1 ea PO BID fluticasone propionate 50 mcg/actuation (Flonase Allergy Relief) 1 spray intranasal DAILY furosemide 40 mg PO DAILY hydroxyzine HCl 1 tab PO BEDTIME PRN ipratropium bromide 1 - 2 sprays intranasal PRN lancets (Easy Touch Twist Lancets) As directed loratadine 10 mg PO DAILY lorazepam 0.5 mg PO BID PRN magnesium oxide 400 mg PO DAILY magnesium oxide 250 mg PO DAILY montelukast 10 mg PO BEDTIME multivitamin with folic acid 400 mcg (Daily-Royal (with folic acid)) 1 tab PO DAILY pantoprazole 40 mg PO DAILY prednisone 40 mg (2 x 20 mg) PO DAILY 5 days thiamine HCl (vitamin B1) 100 mg PO DAILY tramadol 50 mg PO walker Folding Front wheeled walker zolpidem 10 mg PO BEDTIME PRN Do you need a note to return to daycare/school/sports/work: No HPI HPI kaylee: Details: ERWIN IS 58 YEARS OLD VERY PLEASANT FEMALE MODERATELY OBESE, SHE IS HERE FOR 6 MONTHS FOLLOW-UP FOR HER ASTHMA /COPD AND ALLERGIC RHINITIS SHE HAS JUST RETURNED FROM 1 WEEK TRIP TO [place]. CLAIMS THAT SHE IS VERY STABLE AT THIS TIME . SHE IS USING HER ADVAIR DISKUS 250-50 TWICE A D AY AND NEEDS TO USE THE ALBUTEROL SOLUTION, IN THE NEBULIZER ONLY ONCE IN A WHILE. SYMPTOMS OF ALLERGIC. RHINITIS ARE MUCH LESS THAN BEFORE. CURRENTLY SHE IS GETTING IMMUNOTHERAPY INJECTIONS WHICH ARE HOPING. [facility] Medical History Osteoarthritis of left knee Hypersomnolence Renal calculi Diabetes COVID-19 vaccine administered COPD (chronic obstructive pulmonary disease) Allergic rhinitis KAYLEE on CPAP Obesity (BMI 30-39.9) Obesity Axillary hidradenitis suppurativa GERD (gastroesophageal reflux disease) Asthma Arthritis Hypertension Hyperlipidemia Surgical History S/P total knee arthroplasty (09/20/22) History of carpal tunnel release Hx of knee surgery Hx of cystoscopy History of esophagogastroduodenoscopy (EGD) H/O colonoscopy Hx of total knee replacement History of salpingoophorectomy H/O lithotripsy H/O hemicolectomy H/O tubal ligation Hx of cholecystectomy S/P laparoscopic sleeve gastrectomy Family History Mother No problems noted. Father No problems noted. Son No problems noted. Daughter No problems noted. Son No problems noted. Sister No problems noted. Sister No problems noted. Brother No problems noted. Brother No problems noted. Brother No problems noted. Brother No problems noted. 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 Female Reproductive History Menstrual Age of Menarche: 7 Review of Systems Const All systems reviewed & are unremarkable except as noted in HPI and below Eyes Reports no additional complaints ENT Reports change in voice (MILD TO MODERATE DEGREE OF HOARSENESS, HAS ENT CONSULT) Card Denies chest pain, Denies irregular heart rhythm and Denies leg edema Resp Reports as per HPI GI Reports heartburn (Controlled with med) Reports no additional complaints Musc Reports back pain and Reports myalgias Skin/Breast Reports system reviewed and no additional complaints, except as documented Neuro Reports no additional complaints Psych Reports anxiety and Reports depression Valentin/Lymph Reports no additional complaints Physical Exam Vital Signs: Last Vital Signs Pulse 86 12/13/23 10:09 BP 118/72 12/13/23 10:09 Pulse Ox 97 12/13/23 10:09 Oxygen Delivery Method Room Air 12/13/23 10:09 BMI result Body Mass Index 40.2 Const General: comfortable, no acute distress, alert and awake Orientation/consciousness: patient oriented x3 HEENT Head: Yes normal to inspection General nose exam: No nasal polyps present and No nasal discharge present Face and sinus: Yes sinuses nontender Mouth: oropharynx normal Throat: Yes posterior oropharynx normal Eyes General: appearance normal, both eyes and all related structures Neck Neck: Yes normal visual inspection, Yes no lymphadenopathy, Yes trachea midline, Yes no JVD and Yes other (Neck is short and obese, circumference 16 in.) Thyroid: Thyroid normal Chest Chest palpation & inspection: normal inspection of the chest, normal palpation of entire chest wall and no tenderness Resp Other: Breath sounds are slightly distant. Both lungs are clear with prolonged expiratory phase. No wheezes or rhonchi are heard. Cardio Palpation: normal PMI Rate: regular rate Rhythm: regular rhythm Heart sounds: no gallops and no murmurs GI Palpation (GI): Soft to palpation, nontender, No hepatosplenomegaly present, no masses and Other GI palpation findings present (Abdomen is obese and slightly protuberant) Auscultation: normal bowel sounds Back/Spine/Pelvis Thoracic/Lumbar Spine: thoracic and lumbar spine normal to inspection and thoraco-lumbar ROM limited Skin General skin exam: no rashes or lesions noted Neuro General: patient oriented x3 and no focal motor deficits Cranial nerves: Yes CN's II-XII intact bilaterally Extrem General: Yes normal to inspection, Yes no clubbing, cyanosis or edema and Yes no calf tenderness Psych Appearance: grossly normal Speech and movement: Normal speech and movement present Assessment & Plan Assessment & Plan (1) Morbid obesity with BMI of 40.0-44.9, adult: Comment: Remains grossly obese and has not been able to lose much weight. She is not able to walk or do much exercise due to arthritis in the joint. Code(s): E66.01 - Morbid (severe) obesity due to excess calories; Z68.41 - Body mass index [BMI] 40.0-44.9, adult Category: Medical Plan: AGAIN DISCUSSED WITH HER ABOUT THE DIET AND NEED TO DO MORE EXERCISE. SHE UNDERSTANDS WELL AND WILL TRY TO DO MUCH SHE CAN (2) KAYLEE (obstructive sleep apnea): Comment: PATIENT HAS LONG-STANDING HISTORY OF OBSTRUCTIVE SLEEP APNEA, SHE HAS BEEN USING CPAP REGULARLY EVERY NIGHT AND DENIES ANY SPECIFIC ISSUES WITH THE MASK OR CP.AP DEVICE CLAIMS THAT SHE SLEEPS WELL. Code(s): G47.33 - Obstructive sleep apnea (adult) (pediatric) Category: Medical Plan: ADVISED TO CONTINUE USING CPAP REGULARLY EVERY NIGHT AT LEAST FOR 6 HOURS PER NIGHT (3) COPD (chronic obstructive pulmonary disease): Comment: SHE HAS COMBINATION OF MILD ASTHMA, COPD AND RESTRICTIVE LUNG DISORDER STABLE AND WELL CONTROLLED AT THIS TIME. Code(s): J44.9 - Chronic obstructive pulmonary disease, unspecified Category: Medical Plan: ADVAIR 250-50 1 INHALATION B.I.D. VENTOLIN HFA 2 PUFFS Q 6 HOURS P.R.N.. ALTERNATIVELY MAY USE ALBUTEROL SOLUTION IN THE NEBULIZER TO USE Q.6 HOURS P.R.N. WHEN AT HOME. (4) Allergic rhinitis: Comment: SHE HAS HISTORY OF CHRONIC ALLERGIC RHINITIS. SHE IS SEEING ALLERGY SPECIALISTS AND IS CURRENTLY ON IMMUNOTHERAPY. CLAIMS THAT HER SYMPT.OMS ARE MUCH LESS Code(s): J30.9 - Allergic rhinitis, unspecified Category: Medical Plan: CONTINUE MONTELUKAST 10 MG DAILY USE FLONASE 2 SPRAY IN EACH NOSTRIL DAILY . Coding Level of Care Code Est Pt Level 4 (29700) Diagnoses Morbid obesity with BMI of 40.0-44.9, adult E66.01; Z68.41 KAYLEE (obstructive sleep apnea) G47.33 COPD (chronic obstructive pulmonary disease) J44.9 Allergic rhinitis J30.9
[2023-12-13 10:09] VITALS: BP 118/72; PULSE 86; O2SAT 97; BMI 40.2
== END 2023-12-13 10:26 | disposition home or self-care (01) ==
PROVIDERS: PCP Internal Medicine; Visit Provider Internal Medicine
DX: E66.01 Morbid (severe) obesity due to excess calories (principal); Z68.41 Body mass index [BMI] 40.0-44.9, adult; G47.33 Obstructive sleep apnea (adult) (pediatric); J44.9 Chronic obstructive pulmonary disease, unspecified; J30.9 Allergic rhinitis, unspecified
CPT/HCPCS: 99214

== ENCOUNTER → 2023-12-13 10:05 | Outpatient (BNVA) | payer MEDICAID, SELFPAY | PROVIDERS: PCP Internal Medicine; Visit Provider Internal Medicine | DX: J44.9 Chronic obstructive pulmonary disease, unspecified (principal); J30.9 Allergic rhinitis, unspecified; G47.33 Obstructive sleep apnea (adult) (pediatric); E66.01 Morbid (severe) obesity due to excess calories; Z68.41 Body mass index [BMI] 40.0-44.9, adult | CPT/HCPCS: 99212 ==

== ENCOUNTER 2023-12-14 10:42 | Outpatient (AMB) | payer MEDICAID, SELFPAY ==
--- NOTE | 2023-12-14 10:49 | MHC.OFFVIS ---
Intake Visit Reasons: PO - LT CTR 10/30/23 AR(ROM check) Intake Note: Ann-Marie is a 58 year old right hand dominant female who presents today for a post op/ROM check of her LT CTR 10/30/23 AR. Patient reports she is having a lot of pain at her wrist. She mentions that OT is helping her with her ROM, however she tends to feel a bit weak when she is trying to use both hands. Allergies sulfamethoxazole [From Bactrim] Allergy (Intermediate, Verified 12/14/23 10:52) RASH HPI HPI PO - LT CTR 10/30/23 AR(ROM check): Details: 58-year-old female, who is Brazilian speaking, presents in the office today for a ROM check; 6 weeks status post left carpal tunnel release, which was performed on 10/30/[address] Galaviz. I last saw the patient in the office on 11/15/23 when she was referred to occupational therapy. ? ? While in the office today, the patient reports she is having significant pain in the left wrist. She confirms participating in OT and states it is helping with her ROM but states she does feel a bit weak when she is trying to use both of her hands. ? FORMERLY [facility], [facility] Medical History Osteoarthritis of left knee Hypersomnolence Renal calculi Diabetes COVID-19 vaccine administered COPD (chronic obstructive pulmonary disease) Allergic rhinitis KAYLEE on CPAP Obesity (BMI 30-39.9) Obesity Axillary hidradenitis suppurativa GERD (gastroesophageal reflux disease) Asthma Arthritis Hypertension Hyperlipidemia Surgical History S/P total knee arthroplasty (09/20/22) History of carpal tunnel release Hx of knee surgery Hx of cystoscopy History of esophagogastroduodenoscopy (EGD) H/O colonoscopy Hx of total knee replacement History of salpingoophorectomy H/O lithotripsy H/O hemicolectomy H/O tubal ligation Hx of cholecystectomy S/P laparoscopic sleeve gastrectomy Family History Mother No problems noted. Father No problems noted. Son No problems noted. Daughter No problems noted. Son No problems noted. Sister No problems noted. Sister No problems noted. Brother No problems noted. Brother No problems noted. Brother No problems noted. Brother No problems noted. 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 No signs of infection. No surrounding erythema or drainage. Hypersensitivity over the incision site. Able to perform full finger flexion, extension, abduction, adduction, finger cross, okay sign, and thumbs up without deficit. Able to make a closed fist. Sensation intact. Capillary refill is brisk. Radial pulse intact.? Assessment & Plan Assessment & Plan (1) S/P carpal tunnel release: Onset Date: ~10/30/23 Comment: Dr. Galaviz Code(s): Z98.890 - Other specified postprocedural states Category: Surgical Plan Ms. Flores is a 58-year-old female, who is Brazilian speaking, presents in the office today for a ROM check; 6 weeks status post left carpal tunnel release, which was performed on 10/30/[address] Galaviz. I last saw the patient in the office on 11/15/23 when she was referred to occupational therapy. ? ? While in the office today, the patient reports she is having significant pain in the left wrist. She confirms participating in OT and states it is helping with her ROM but states she does feel a bit weak when she is trying to use both of her hands.? ? The patient will continue to work with occupational therapy on hypersensitivity and pain. She reports a decrease in casing grader strength. Follow-up will be in four weeks, or sooner if needed. ? Patient Instructions: Scribed by Breana Yeung medical social worker, for Tamela Patel PA-C on 12/14/2023 at 10:53 am, EST.? Coding Level of Care Code Est Pt Level 3 (11071) Diagnoses S/P carpal tunnel release Z98.890
== END 2023-12-14 11:51 | disposition home or self-care (01) ==
LOC: HO.HOS 10:42
PROVIDERS: PCP Internal Medicine; Visit Provider Physician Assistant
DX: G56.02 Carpal tunnel syndrome, left upper limb (principal)
CPT/HCPCS: 99024

== ENCOUNTER → 2023-12-14 10:42 | Outpatient (BNVA) | payer MEDICAID, SELFPAY | PROVIDERS: PCP Internal Medicine; Visit Provider Physician Assistant | DX: M25.532 Pain in left wrist (principal); Z98.890 Other specified postprocedural states; Z86.69 Personal history of other diseases of the nervous system and sense organs | CPT/HCPCS: 99212 ==

== ENCOUNTER 2024-01-09 13:59 | Outpatient (AMB) | payer MEDICAID, SELFPAY ==
--- NOTE | 2024-01-09 14:30 | MHC.OFFVIS ---
Vital Signs 01/09/24 14:33 Height 5 ft 1 in Weight 212 lb BMI 40.1 Intake Visit Reasons: PO - LT CTR 10/30/23 AR(ROM check) Intake Note: Ann-Marie is a 58 year old right hand dominant female who presents today for a post op/ROM check s/p left carpal tunnel release done 10/30/[address] Galaviz. Patient reports she continues to go to OT however she continues to experience pain during the night time. Patient also reports she continues to have numbness making it difficult to do some daily activities. Blueprinting Machine Operator Required: Yes Blueprinting Machine Operator Language: Turntable Worker Services: Blueprinting Machine Operator Present Blueprinting Machine Operator Name: Kaley,,RMA/LM Allergies sulfamethoxazole [From Bactrim] Allergy (Intermediate, Verified 01/09/24 14:34) RASH HPI HPI PO - LT CTR 10/30/23 AR(ROM check): Details: Ann-Marie is a 58 year old right hand dominant Diabetic Martiniquais speaking woman who presents for a left wrist ROM check. She is S/P left carpal tunnel release, DOS: 10/30/23. She has been attending OT hand therapy. She complains of pain & stiffness in her hand & wrist. She says she has completed her course of OT and has been performing exercises at home, with some improvement. She says her fingers still spasm, cramp, & lock up on her, which wakes her up at night. She denies any triggering of her fingers. She says her sensation is improved with less numbness and tingling. She has a hx of right carpal tunnel release, right middle trigger finger release, and right ring trigger finger release, DOS: 713/21. She says sensation in her right hand is normal and she is happy with the results of her surgery. [facility] Medical History Osteoarthritis of left knee Hypersomnolence Renal calculi Diabetes COVID-19 vaccine administered COPD (chronic obstructive pulmonary disease) Allergic rhinitis KAYLEE on CPAP Obesity (BMI 30-39.9) Obesity Axillary hidradenitis suppurativa GERD (gastroesophageal reflux disease) Asthma Arthritis Hypertension Hyperlipidemia Surgical History S/P total knee arthroplasty (09/20/22) History of carpal tunnel release Hx of knee surgery Hx of cystoscopy History of esophagogastroduodenoscopy (EGD) H/O colonoscopy Hx of total knee replacement History of salpingoophorectomy H/O lithotripsy H/O hemicolectomy H/O tubal ligation Hx of cholecystectomy S/P laparoscopic sleeve gastrectomy Family History Mother No problems noted. Father No problems noted. Son No problems noted. Daughter No problems noted. Son No problems noted. Sister No problems noted. Sister No problems noted. Brother No problems noted. Brother No problems noted. Brother No problems noted. Brother No problems noted. 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 Female Reproductive History Menstrual Age of Menarche: 7 Physical Exam Vital Signs: BMI result Body Mass Index 40.1 Const General: cooperative, healthy appearing and no acute distress Orientation/consciousness: patient oriented x3 HEENT Head: Yes normocephalic and Yes atraumatic Eyes EOM: EOMs intact bilaterally Resp Effort & Inspection: normal respiratory effort and able to speak in complete sentences Cardio Jugular venous distension: no JVD Skin General skin exam: turgor normal Rashes: no rashes Neuro General: patient oriented x3 Extrem Other: Evaluation of Left Upper Extremity: The patient is alert, oriented, and in no acute distress Neuro: Median, Ulnar, Radial nerves motor and sensory intact and sensation is normal to the tips of all digits No thenar or intrinsic wasting Good APB muscle belly firing and good finger cross Vascular: Cap refill brisk ROM: Initially when asked to make a fist she only brought her fingertips to about 6 mm from her palm. With encouragement she could easily make a fist and extend all her digits. No locking or catching No tenderness over the A1 pulleys. She demonstrated that when her hands ?lock up? that her fingers will be in a position of partial finger flexion, more consistent with some kind of hand spasm and not a trigger finger. Her incision is well healed with no evidence of infection. There is a small palpable bump just radial to the carpal tunnel incision, and extending just distal to the incision.. This measures ~1cm in length x 6mm in with. It is mildly tender. It is not mobile and there are no overlying skin changes. Nerve Conduction study: Impression Moderate carpal tunnel syndrome bilaterally Dr. Martell 07/03/19 Psych Appearance: grossly normal Affect: normal affect Attitude: cooperative Assessment & Plan Assessment & Plan (1) Diabetes: Code(s): E11.9 - Type 2 diabetes mellitus without complications Category: Medical (2) Stiffness of left hand joint: Code(s): M25.642 - Stiffness of left hand, not elsewhere classified Category: Medical (3) S/P carpal tunnel release: Onset Date: ~10/30/23 Comment: Dr. Galaviz Code(s): Z98.890 - Other specified postprocedural states Category: Medical (4) Mass of left hand: Code(s): R22.32 - Localized swelling, mass and lump, left upper limb Category: Medical Plan Assessment & Plan: 1. Left hand stiffness I educated her about this condition She has been attending OT hand therapy and working on ROM exercises at home I encouraged her to continue to work with OT until she could very easily and confidently make a fist and extend her digits and start using her hand in a more normal fashion. 2. Left palmar soft tissue mass This appeared to develop in the postoperative period following her carpal tunnel release She should gently massage the skin about the incision site to prevent hypersensitivity. However, If deep tissue massage of the bump near her carpal tunnel incision hurts then this should be avoided by OT, She can follow up in 6 weeks to see how she is doing. She may cancel this if she is doing well If she continues to have this mass in her palm at that point, we might consider an MRI. 3. Left carpal tunnel syndrome, S/P release DOS: 10/30/23 Pre-operative symptoms intermittent, but daily, worse at night Now with normal sensation 3. Right carpal tunnel syndrome, S/P release 4. Right middle finger trigger finger, S/P release 5. Right ring finger trigger finger, S/P release DOS: 11/10/20 With normal sensation and good resolution of her symptoms Scribed for Clari Galaviz MD by Nicholas Castillo, medical insurance biller, on 01/09/24 at 3:05 PM, EST. Coding Level of Care Code Est Pt Level 3 (21883) Diagnoses Diabetes E11.9 Stiffness of left hand joint M25.642 S/P carpal tunnel release Z98.890 Mass of left hand R22.32
[2024-01-09 14:33] VITALS: BMI 40.1
== END 2024-01-09 15:16 | disposition home or self-care (01) ==
PROVIDERS: PCP Internal Medicine; Visit Provider Orthopaedic Surgery
DX: R22.32 Localized swelling, mass and lump, left upper limb (principal); E11.9 Type 2 diabetes mellitus without complications; M25.642 Stiffness of left hand, not elsewhere classified; G56.02 Carpal tunnel syndrome, left upper limb
CPT/HCPCS: 99024

== ENCOUNTER → 2024-01-09 13:59 | Outpatient (BNVA) | payer MEDICAID, SELFPAY | PROVIDERS: PCP Internal Medicine; Visit Provider Orthopaedic Surgery | DX: M25.632 Stiffness of left wrist, not elsewhere classified (principal); M25.642 Stiffness of left hand, not elsewhere classified; M25.532 Pain in left wrist; M79.642 Pain in left hand; R22.32 Localized swelling, mass and lump, left upper limb; Z98.890 Other specified postprocedural states | CPT/HCPCS: 99212 ==

== ENCOUNTER 2024-02-02 15:30 | Outpatient (RCR) | payer MEDICAID, SELFPAY ==
--- NOTE | 2023-11-22 13:12 | MHC.OT.EP ---
[address] [phone] Occupational Therapy Plan of Care Patient Name: Ann-Marie Flores Date of Evaluation: 11/22/23 Diagnosis: Pain Location: hypersensitivity of scar volar side of hand Pain Score: 4 Pain Scale Used: Numeric (0 - 10) Aggravating Factors: rough materials (fabrics) or gripping too tightly Alleviating Factors: rest Assessment: Pt is a 58 yr. old R hand dominant female who had CTR surgery on 10/30/23 of her L hand/ wrist. She reports she has minimal pain/ discomfort and denies any numbness or tingling. She reports concern for decreased ROM and strength. Pt has been referred to skilled OT therapy to increase AROM, strength, and the functional use of her L hand. 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 Thank you once again for your referral.
--- NOTE | 2023-11-22 13:20 | MHC.OT.EP ---
[address] [phone] Occupational Therapy Plan of Care Patient Name: Ann-Marie Flores Date of Evaluation: 11/22/23 Diagnosis: Pain Location: hypersensitivity of scar volar side of hand Pain Score: 4 Pain Scale Used: Numeric (0 - 10) Aggravating Factors: rough materials (fabrics) or gripping too tightly Alleviating Factors: rest Assessment: Pt is a 58 yr. old R hand dominant female who had CTR surgery on 10/30/23 of her L hand/ wrist. She reports she has minimal pain/ discomfort and denies any numbness or tingling. She reports concern for decreased ROM and strength. Pt has been referred to skilled OT therapy to increase AROM, strength, and the functional use of her L hand. 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 Thank you once again for your referral.
--- NOTE | 2024-02-02 15:44 | MHC.OT.DC ---
[address] [phone] F: [phone] Occupational Therapy Discharge Note Patient Name: Ann-Marie Flores Provider: Tamela Patel Diagnosis: Date of Surgery: 10/30/23 Date of Evaluation: 11/22/23 Date of Discharge: Treatments to Date: 10 Cancellations to Date: No Shows to Date: Discharge Status: Discharge Summary: Pt had surgery in October 2023. 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 She reports the numbness/ tingling is better , but has pain still with activity. We did discuss that it would take time due to her comorbidities (diabetes, arthritis). She reported pain on the dorsal side of her hand w/ gripping today (2nd metacarpal). Her ROM looks good 40wrist ext, 65 wrist flex, and pt can make a composite fist. Her L hand merchandiser seasonal was 30 lbs today (R: 40 lbs) and her lateral pinch was L: 9lbs, R 12lbs. She will continue to do exercises and use the putty. Electronically Signed By: Mari Michael OTR/L Reviewed/agree with student documentation: N/A Therapist: Please Sign and return to therapist, thank you for your referral.
== END 2024-02-02 15:45 | disposition home or self-care (01) ==
LOC: HO.OT 15:30
PROVIDERS: PCP Internal Medicine; Visit Provider Physician Assistant
DX: G56.02 Carpal tunnel syndrome, left upper limb (principal)
CPT/HCPCS: 97035; 97110; 97140; 97166; 97535

== ENCOUNTER 2024-02-05 09:15 | Outpatient (REF) | payer MEDICAID, SELFPAY ==
--- NOTE | ~2024-02-05 | CT_ITS ---
EXAMINATION: CT ABDOMEN AND PELVIS WITHOUT CONTRAST CLINICAL INFORMATION: Calculus of kidney COMPARISON: CT dated January 30, 2023. TECHNIQUE: Multidetector volumetric imaging was performed from the superior aspect of the liver through the pubic symphysis. Sagittal and coronal reformatted images were obtained on the technologist's workstation. This CT examination was performed using dose optimization techniques as appropriate, variously including the following: *Automated exposure control *Adjustment of mA and/or kV according to patient size (this includes techniques or standardized protocols for targeted exams where dose is matched to indication/reason for exam; i.e. extremities or head) *Use of iterative reconstruction technique DLP: 636 mGy-cm FINDINGS: Submitted for interpretation on March 19, 2024. Limited examination of the intra-abdominal organs and vascular structures due to lack of IV contrast. LIVER, GALLBLADDER, AND BILIARY TREE: Liver measures 17 cm. No intrahepatic biliary ductal dilatation. Status post cholecystectomy. No extrahepatic biliary ductal dilatation. PANCREAS: No peripancreatic fluid collections. No main pancreatic ductal dilatation. SPLEEN: 8 cm. ADRENAL GLANDS: No nodular lesions. KIDNEYS AND URETERS: No hydronephrosis. No nephrolithiasis. BLADDER: Fluid-filled nearly collapsed. GASTROINTESTINAL TRACT: Postsurgical changes along the gastroesophageal junction lateral margin/greater curvature of stomach and distal small bowel loops/pericecal. Abundant stool. No intestinal obstruction pattern. No ascites. No pneumoperitoneum. No pneumatosis intestinalis. Numerous diverticula, sigmoid colon. ABDOMINAL WALL: Status post infraumbilical midline laparotomy incision. No gross hernia. LYMPH NODES: Prominent lymph nodes in the inguinal regions bilaterally. VASCULAR: Calcified plaques throughout the abdominal aorta wall without aneurysm. Calcified plaques in the iliac arteries. PELVIC VISCERA: Not evaluated. OSSEOUS STRUCTURES: Multilevel thoracolumbar spondylosis with at acute fracture or gross listhesis. No lytic or blastic lesions. CT/CT abdomen pelvis wo IV con IMPRESSION: No hydronephrosis or nephrolithiasis. Sigmoid colon diverticular disease. Fleischner guidelines were followed. Electronically signed by: Kenn Ordoñez MD 03/19/2024 08:35 AM EST
== END 2024-02-05 09:16 | disposition home or self-care (01) ==
LOC: HO.CT 09:15
PROVIDERS: PCP Internal Medicine; Visit Provider Urology
DX: N20.0 Calculus of kidney (principal)
CPT/HCPCS: 74176

== ENCOUNTER → 2024-02-05 09:16 | Outpatient (BNV) | payer MEDICAID, SELFPAY | PROVIDERS: PCP Internal Medicine; Visit Provider Radiology Diagnostic Radiology | DX: N20.0 Calculus of kidney (principal) | CPT/HCPCS: 74176 ==

== ENCOUNTER 2024-03-20 14:04 | Outpatient (AMB) | payer MEDICAID, SELFPAY ==
--- NOTE | 2024-03-20 13:30 | MHC.OFFVIS ---
Intake Visit Reasons: 1y/CT/KUB Intake Note: Patient is Present for 1Y Follow Up/CT/KUB Urology Medication: None Antibiotic Allergies: Sulfa Blood Thinners: None Packaging Clerk Required: Yes Packaging Clerk Name: Fabian [id number] Information Interpreted: non-clinical & clinical Allergies sulfamethoxazole [From Bactrim] Allergy (Intermediate, Verified 03/20/24 14:15) RASH Medication List - Last Reconciled 03/20/24 by Adal Christiansen MD albuterol sulfate 2.5 mg (3 mL) inhalation Q4H PRN albuterol sulfate 90 mcg/actuation (Ventolin HFA) 1 puff PO Q4-6H PRN atorvastatin 40 mg PO BEDTIME blood sugar diagnostic (FreeStyle Lite Strips) As directed celecoxib 200 mg PO BID cholecalciferol (vitamin D3) 25 mcg PO DAILY citalopram 1 tab PO QAM cyanocobalamin (vitamin B-12) (Vitamin B-12) 1,000 mcg PO DAILY cyclobenzaprine 10 mg PO TID PRN docusate sodium 100 mg PO BID 14 days docusate sodium (Colace) 100 mg PO BID dulaglutide (Trulicity) mg subcut QWEEK epinephrine 0.3 mg IM Q10M PRN fluticasone propion-salmeterol 250-50 mcg/dose (Advair Diskus) 1 ea PO BID fluticasone propionate 50 mcg/actuation (Flonase Allergy Relief) 1 spray intranasal DAILY furosemide 40 mg PO DAILY hydroxyzine HCl 1 tab PO BEDTIME PRN ipratropium bromide 1 - 2 sprays intranasal PRN lancets (Easy Touch Twist Lancets) As directed loratadine 10 mg PO DAILY lorazepam 0.5 mg PO BID PRN magnesium oxide 400 mg PO DAILY magnesium oxide 250 mg PO DAILY montelukast 10 mg PO BEDTIME multivitamin with folic acid 400 mcg (Daily-Royla (with folic acid)) 1 tab PO DAILY pantoprazole 40 mg PO DAILY prednisone 40 mg (2 x 20 mg) PO DAILY 5 days thiamine HCl (vitamin B1) 100 mg PO DAILY tramadol 50 mg PO walker Folding Front wheeled walker zolpidem 10 mg PO BEDTIME PRN HPI Comments Details: 03/20/24--58 year old female with history of kidney stones here for follow up. Repeat CTAP 02/05/2024--negative nephrolithiasis negative hydronephrosis. Ann-Marie states she has been doing well denies irritative voiding symptoms or symptoms of renal colic. Again encouraged to continue hydration and monitor diet to decrease stone formation. Monitor kidneys. Follow-up in 1 year with renal ultrasound. Review of chart: 03/20/23--I have reviewed CT Abd/pelvis and renal US. On 03/07/23-renal US does not document renal calcifications. Prior - 01/30/23--CTAP-A 5 mm nonobstructing right renal calculus is seen. I have discussed at length diet modification to decrease risk of forming more kidney stones. I have discussed low oxalate diet and specific foods to avoid including certain green leafy vegetables, chocalate, nuts, tea, beets, rubarb; low sodium, decreased use of animal protein and the importance of hydration drinking up to 2-2.5 liters of fluids and use of adding lemon to water to increase citrate in the diet. A pamphlet is also provided today. Plan: Cont to monitor kidneys. Cont Diet management, Adequate water intake. FOR[facility]LY [facility], [facility] Medical History Osteoarthritis of left knee Hypersomnolence Renal calculi Diabetes COVID-19 vaccine administered COPD (chronic obstructive pulmonary disease) Allergic rhinitis KAYLEE on CPAP Obesity (BMI 30-39.9) Obesity Axillary hidradenitis suppurativa GERD (gastroesophageal reflux disease) Asthma Arthritis Hypertension Hyperlipidemia Surgical History S/P total knee arthroplasty (09/20/22) History of carpal tunnel release Hx of knee surgery Hx of cystoscopy History of esophagogastroduodenoscopy (EGD) H/O colonoscopy Hx of total knee replacement History of salpingoophorectomy H/O lithotripsy H/O hemicolectomy H/O tubal ligation Hx of cholecystectomy S/P laparoscopic sleeve gastrectomy Family History Mother No problems noted. Father No problems noted. Son No problems noted. Daughter No problems noted. Son No problems noted. Sister No problems noted. Sister No problems noted. Brother No problems noted. Brother No problems noted. Brother No problems noted. Brother No problems noted. 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 Female Reproductive History Menstrual Age of Menarche: 7 Review of Systems Const All systems reviewed & are unremarkable except as noted in HPI and below Reports no additional complaints Eyes Reports no additional complaints ENT Reports no additional complaints Card Reports no additional complaints Resp Reports no additional complaints GI Reports no additional complaints Reports as per HPI Musc Reports no additional complaints Skin/Breast Reports system reviewed and no additional complaints, except as documented Neuro Reports no additional complaints Psych Reports no additional complaints Endo Reports no additional complaints Valentin/Lymph Reports no additional complaints Aller/Immun Reports no additional complaints Results AMB Urinalysis, Automated UA Leukoctes 0 Cliff/uL Last Edit by ROSEMARY Hodge on 03/20/24 14:38 UA Nitrite Negative Last Edit by ROSEMARY Hodge on 03/20/24 14:38 UA Urobilinogen 0.2 mg/dL Last Edit by ROSEMARY Hodge on 03/20/24 14:38 UA Protein 0 mg/dL Last Edit by ROSEMARY Hodge on 03/20/24 14:38 UA pH 5.5 Last Edit by ROSEMARY Hodge on 03/20/24 14:38 UA Blood 0 Booker/uL Last Edit by ROSEMARY Hodge on 03/20/24 14:38 UA Specific Oberlin 1.025 Last Edit by ROSEMARY Hodge on 03/20/24 14:38 UA Ketone Positive Last Edit by ROSEMARY Hodge on 03/20/24 14:38 UA Bilirubin 0 mg/dL Last Edit by ROSEMARY Hodge on 03/20/24 14:38 UA Glucose 0 mg/dL Last Edit by ROSEMARY Hodge on 03/20/24 14:38 Results Reviewed Results Reviewed: Laboratory Last Values Urine pH (Auto) 5.5 03/20/24 14:33 Specific Oberlin (Auto) 1.025 03/20/24 14:33 Urine Protein (Auto) 0 mg/dL 03/20/24 14:33 Glucose (UA)(Auto) 0 mg/dL 03/20/24 14:33 Urine Ketones (Auto) Positive 03/20/24 14:33 Urine Blood (Auto) 0 Booker/uL 03/20/24 14:33 Urine Nitrite (Auto) Negative 03/20/24 14:33 Urine Bilirubin (Auto) 0 mg/dL 03/20/24 14:33 Urine Urobilinogen (Auto) 0.2 mg/dL 03/20/24 14:33 Leukocyte Esterase (Auto) 0 Cliff/uL 03/20/24 14:33 Date of Service: 02/05/24 CT ABDOMEN AND PELVIS WITHOUT CONTRAST CLINICAL INFORMATION: Calculus of kidney COMPARISON: CT dated January 30, 2023. TECHNIQUE: Multidetector volumetric imaging was performed from the superior aspect of the liver through the pubic symphysis. Sagittal and coronal reformatted images were obtained on the technologist's workstation. This CT examination was performed using dose optimization techniques as appropriate, variously including the following: *Automated exposure control *Adjustment of mA and/or kV according to patient size (this includes techniques or standardized protocols for targeted exams where dose is matched to indication/reason for exam; i.e. extremities or head) *Use of iterative reconstruction technique DLP: 636 mGy-cm FINDINGS: Submitted for interpretation on March 19, 2024. Limited examination of the intra-abdominal organs and vascular structures due to lack of IV contrast. LIVER, GALLBLADDER, AND BILIARY TREE: Liver measures 17 cm. No intrahepatic biliary ductal dilatation. Status post cholecystectomy. No extrahepatic biliary ductal dilatation. PANCREAS: No peripancreatic fluid collections. No main pancreatic ductal dilatation. SPLEEN: 8 cm. ADRENAL GLANDS: No nodular lesions. KIDNEYS AND URETERS: No hydronephrosis. No nephrolithiasis. BLADDER: Fluid-filled nearly collapsed. GASTROINTESTINAL TRACT: Postsurgical changes along the gastroesophageal junction lateral margin/greater curvature of stomach and distal small bowel loops/pericecal. Abundant stool. No intestinal obstruction pattern. No ascites. No pneumoperitoneum. No pneumatosis intestinalis. Numerous diverticula, sigmoid colon. ABDOMINAL WALL: Status post infraumbilical midline laparotomy incision. No gross hernia. LYMPH NODES: Prominent lymph nodes in the inguinal regions bilaterally. VASCULAR: Calcified plaques throughout the abdominal aorta wall without aneurysm. Calcified plaques in the iliac arteries. PELVIC VISCERA: Not evaluated. OSSEOUS STRUCTURES: Multilevel thoracolumbar spondylosis with at acute fracture or gross listhesis. No lytic or blastic lesions. IMPRESSION: No hydronephrosis or nephrolithiasis. Sigmoid colon diverticular disease. Date of Service: 03/07/23 EXAMINATION: US RETROPERITONEAL LIMITED (RENAL ONLY) CLINICAL INFORMATION: Calculus of kidney. COMPARISON: CT abdomen and pelvis 01/30/2023. Renal ultrasound 02/15/2022 and 06/28/2021. X-ray abdomen KUB 01/03/2018. TECHNIQUE: Real-time imaging of the kidneys. FINDINGS: RIGHT KIDNEY: 10.7 x 5.5 x 5.3 cm (SAG x AP x TRV). The kidney is normal in size, contour, and echogenicity. Renal cortical thickness is normal. No calculi or focal parenchymal lesions. No hydronephrosis. LEFT KIDNEY: 10.1 x 5.1 x 5.1 cm (SAG x AP x TRV). The kidney is normal in size, contour, and echogenicity. Renal cortical thickness is normal. No calculi or focal parenchymal lesions. No hydronephrosis. IMPRESSION: Unremarkable kidneys Date of Service: 01/30/23 CT ABDOMEN AND PELVIS WITHOUT CONTRAST CLINICAL INFORMATION: Right flank pain. COMPARISON: Renal ultrasound dated 02/15/2022; CT abdomen and pelvis dated 11/01/2019. TECHNIQUE: Multidetector volumetric imaging was performed from the superior aspect of the liver through the pubic symphysis. Sagittal and coronal reformatted images were obtained on the technologist's workstation. This CT examination was performed using dose optimization techniques as appropriate, variously including the following: *Automated exposure control *Adjustment of mA and/or kV according to patient size (this includes techniques or standardized protocols for targeted exams where dose is matched to indication/reason for exam; i.e. extremities or head) *Use of iterative reconstruction technique DLP: 775 mGy-cm FINDINGS: LUNG BASES: The visualized lung bases are unremarkable. LIVER, GALLBLADDER, AND BILIARY TREE: The liver is normal in size, shape, and attenuation. No focal hepatic lesion or biliary ductal dilatation is present. The gallbladder is surgically absent. PANCREAS: There is mild fat stranding adjacent to the uncinate process (3:34). No focal pancreatic mass or ductal dilatation is noted. There is no acute peripancreatic fluid collection. SPLEEN: Unremarkable. ADRENAL GLANDS: Unremarkable. KIDNEYS AND URETERS: The kidneys are normal in size, shape, and attenuation. At the lower pole of the right kidney (3:35), a 5 mm nonobstructing calculus is seen. No further urinary calculus is seen, and there is no obstructive uropathy. Again, the right ureter crosses the midline, presumably inserted into the leftward urinary bladder. No perinephric stranding. BLADDER: Unremarkable. GASTROINTESTINAL TRACT: There are postoperative changes of the stomach, consistent with a prior sleeve gastrectomy. There is mild diverticulosis, without acute diverticulitis. No bowel obstruction, free intraperitoneal air or abscess is seen. There is no focal bowel wall thickening. There is a patent ileocolic anastomotic staple line. ABDOMINAL WALL: No significant hernia is appreciated. LYMPH NODES: Normal. VASCULAR: There is mild aortoiliac atherosclerotic calcification. No abdominal aortic aneurysm is seen. PELVIC VISCERA: Surgically absent. No pelvic mass, free fluid or lymphadenopathy is seen. OSSEOUS STRUCTURES: There is multi-level marked thoracic and mild lumbar spondylosis. There is no acute or aggressive osseous finding. IMPRESSION: 1. A 5 mm nonobstructing right renal calculus is seen. No further urinary calculus is seen, and is no obstructive uropathy noted bilaterally. 2. There is mild fat stranding adjacent to the uncinate process of the pancreas, raising the question of early pancreatitis. Recommend clinical correlation, possibly to include a serum lipase level. 3. The gallbladder and uterus are surgically absent. 4. No bowel obstruction, free intraperitoneal air or abscess is seen. There is mild diverticulosis, without acute diverticulitis. Postoperative changes are noted, as detailed. 5. There is multi-level marked thoracolumbar spondylosis. No acute or aggressive osseous finding is noted. Assessment & Plan Assessment & Plan (1) Renal stones: Code(s): N20.0 - Calculus of kidney Category: Medical Plan Cont Diet management, Adequate water intake. Monitor kidneys. Follow-up in 1 year with renal ultrasound. Orders: Orders AMB Urinalysis Automated Today Z13.9 - Encounter for screening, unspecified US renal BI 10 Months N20.0 - Calculus of kidney Patient Instructions: The patient had an opportunity to ask questions regarding treatment plan. The patient expressed understanding and agreement with the above treatment plan. The patient is aware they should contact our office by phone for worsening of their current condition or the appearance of new symptoms. Compliance is encouraged with any medications and followup testing that is ordered. It is a privilege to be allowed the opportunity to participate in the urologic care of your patient. If you have any questions or concerns regarding treatment for the above conditions please do not hesitate to contact me. The office telephone contact is [phone]. This note is constructed in part using voice recognition software. While every effort has been made to ensure accuracy clinical informatics strategist errors may have been included. Yours sincerely, Adal Christiansen MD Coding Level of Care Code Est Pt Level 3 (27887) Diagnoses Renal stones N20.0
== END 2024-03-20 15:10 | disposition home or self-care (01) ==
PROVIDERS: PCP Internal Medicine; Visit Provider Urology
DX: Z13.9 Encounter for screening, unspecified (principal); N20.0 Calculus of kidney
CPT/HCPCS: 99213

== ENCOUNTER → 2024-03-20 14:04 | Outpatient (BNVA) | payer MEDICAID, SELFPAY | PROVIDERS: PCP Internal Medicine; Visit Provider Urology | DX: N20.0 Calculus of kidney (principal) | CPT/HCPCS: 81003; 99212 ==

== ENCOUNTER 2024-05-03 09:55 | Outpatient (REF) | payer MEDICAID, SELFPAY ==
--- NOTE | ~2024-05-03 | MM_ITS ---
EXAMINATION: MM SCREENING DIGITAL BREAST TOMOSYNTHESIS, BILATERAL CLINICAL INFORMATION: Screening. Asymptomatic. COMPARISON: Mammography: Comparison is made with available priors TECHNIQUE: Digital breast mammography with tomosynthesis is performed in both the craniocaudal and mediolateral oblique views along with computer-aided detection (CAD). FINDINGS: There are scattered areas of fibroglandular density (ACR BI-RADS breast composition Category b). Left marker clip. There are no significant masses, abnormal calcifications, or other abnormalities. MM/MM tomosynthesis screening BI IMPRESSION: No mammographic evidence of malignancy. ASSESSMENT: BI-RADS BI-RADS 2 - Benign Findings RECOMMENDATION: Routine annual mammography screening. 1 year F/U This examination should not preclude the clinical evaluation of a suspicious palpable abnormality. This patient's information was entered into a reminder system with a target due date for their next mammogram. Electronically signed by: Tricia German DO 05/12/2024 08:47 AM YASSINE
--- OUTSIDE RECORDS SUMMARY | 2024-05-03 10:57 | XMS_ITS | Data Portability ---
Author Organization [place] - [facility], Allergy Address [address] [place] [id number] Assessment Encounter Date Assessment Date Assessment LastModified by Organization Details LastModified Time 11/28/2023 11/28/2023 Patient with longstanding history of globus sensation, reflux, gastritis, gastric bypass, sleep apnea and moderate persistent asthma presents with many years of hoarseness and a feeling of something sticking in her throat. She notes irritation with spicy food leading to cough. Examination shows a hoarse voice. There is no evidence of oropharyngeal thrush. Fiberoptic laryngoscopy is consistent with reflux and laryngeal edema due to reflux, vocal abuse and inhaler use. Suggest avoidance of throat clearing and making sure she rinses her mouth out well after using her inhalers. Given her complex GI history, I think an EGD and GI follow-up is necessary. She is due for colonoscopy and has been awaiting referral. I have suggested she coordinate with her primary care doctor having upper and lower endoscopy. [email or web address] Not available 11/28/2023 09:22:16 Plan of Treatment Reminders Order Date Submit Date Provider Last Modified By Organization Details Last Modified Time Details Appointments None record ed. Lab None record ed. Referral None record ed. Procedures None record ed. Surgeries None record ed. Imaging None record ed. Medication Orders None record ed. Patient TargetsNo targets recorded. Patient InstructionsNo instructions recorded. Reason for Referral None Reported. Problems Name Problem SNOMED Code Status Onset Date Resolution Date Notes Provider Name and Address Organization Details Recorded Time Chronic hoarseness 3900366355254 Active 2023 YIN DE SANTIAGO MD [address] [facility],[address], [address] - [facility] 09:20:04 Feeling of lump in throat 793046203 Active 2023 YIN DE SANTIAGO MD 100 [facility], [place], [phone], [facility] - [facility] 4 09:20:10 Obstructive sleep apnea syndrome 40582802 Active 2023 YIN DE SANTIAGO MD [address] [address], [place], [address], [facility] - [facility] 4 09:20:14 Moderate persistent asthma 144712598 Active 2023 YIN DE SANTIAGO MD [address] [address], [place], [address], [facility] - [facility] 4 09:20:21 Problem Notes None recorded. Procedures Surgical History Date Name Laterality Status Provider Name and Address Organization Details Recorded Time 4 [id number] MS completed YIN REEVES MD [address] [address], [place], [address], [facility] - [facility] 11/28/2023 09:22:24 Gastric bypass for obesity completed Dustin Francis [place] - [facility] 11/28/2023 09:27:15 Imaging Results None recorded. Procedure Notes None recorded. Medical Equipment None Reported. Medications Name Sig Start Date Stop Date Status Note LastModified by Organization Details LastModified Time celecoxib 200 mg capsule TOME TAYLOR C PSULA DOS VECES AL D A active Not Available Not Available No t Available cyclobenzapr ine 10 mg tablet TAKE 1 TABLET BY MOUTH THREE TIMES DAILY NEEDED FOR MUSCLE SPASMS active Not Available Not Available No t Available amoxicillin 500 mg capsule TOME 1 C PSULA POR V A ORAL AUTUMN VECES AL D A active Not Available Not Available No t Available furosemide 40 mg tablet TOME TAYLOR TABLETA TODOS LOS D active Not Available Not Available No t Available atorvastatin 40 mg tablet TOME 1 TABLETA POR V A ORAL TODOS LOS D active Not Available Not Available No t Available albuterol sulfate 2.5 mg/3 mL (0.083 %) solution for nebulization INHALE 1 AMPULE USING A NEBULIZER EVERY 6 HOURS NEEDED FOR WHEEZING OR SHORTNESS OF BREATH active Not Available Not Available No t Available citalopram 40 mg tablet TOME TAYLOR TABLETA TODOS LOS D EN JALEESA DIALLO active Not Available Not Available No t Available ketotifen 0.025 % (0.035 %) eye drops PONGA TAYLOR GOTA EN NICOLE AFECTADO DOS VECES AL JOSÉ LUIS active Not Available Not Available No t Available sucralfate 1 gram tablet TAKE 1 TABLET BY MOUTH FOUR TIMES DAILY BEFORE BREAKFAST, LUNCH, foundation relations director, AND AT BEDTIME active Not Available Not Available N ot Available prednisone 20 mg tablet TAKE 2 TABLETS DAILY FOR 5 DAYS active Not Available Not Available No t Available thiamine HCl (vitamin B1) 100 mg tablet TOME TAYLOR TABLETA TODOS LOS D active Not Available Not Available No t Available potassium chloride ER 10 mEq tablet,exten ded release TAKE 1 TABLET BY MOUTH EVERY MORNING FOR 30 DOSES, DO NOT BREAK, CRUSH, DISSOLVE OR CHEW active Not Available Not Available No t Available tramadol 50 mg tablet TAKE 1 TABLET BY MOUTH EVERY TWELVE HOURS NEEDED FOR SEVERE PAIN active Not Available Not Available Not Available acetaminophe n 500 mg tablet TAKE 1 TABLET BY MOUTH EVERY 8 HOURS IF NEEDED. active Not Available Not Available No t Available magnesium oxide 400 mg (241.3 mg magnesium) tablet TAKE 1 TABLET BY MOUTH EVERY DAY active Not Available Not Available No t Available lorazepam 0.5 mg tablet TOME 1 TABLETA POR V A ORAL TODOS LOS D CUANDO SEA NECESARIO active Not Available Not Available No t Available pantoprazole 40 mg tablet,delay ed release TOME TAYLOR TABLETA TODOS LOS D EN JALEESA DIALLO active Not Available Not Available No t Available docusate sodium 100 mg capsule TAKE 1 CAPSULE BY ORAL ROUTE 1 - 2 TIMES EVERY DAY NEEDED FOR CONSTIPATIO N active Not Available Not Available No t Available montelukast 10 mg tablet TOME TAYLOR TABLETA TODOS LOS D AL ACOSTARSE active Not Available Not Available No t Available azelastine 137 mcg (0.1 %) nasal spray INHALE 1 SPRAY IN EACH NOSTRIL TWICE DAILY active Not Available Not Available Not Available epinephrine 0.3 mg/0.3 mL injection, auto-injecto r CARRY ON IMMUNOTHERA PY DAYS. INJECT FOR ANAPHYLAXIS active Not Available Not Available Not Available zolpidem 10 mg tablet TAKE 0.5-1 TABLET BY MOUTH AT BEDTIME NEEDED active Not Available Not Available No t Available fluticasone propionate 50 mcg/actuatio n nasal spray,suspen cecily SPRAY 2 SPRAYS IN EACH NOSTRIL EVERY MORNING active Not Available Not Available No t Available ipratropium bromide 21 mcg (0.03 %) nasal spray INHALE 1-2 SPRAYS NASALLY NEEDED UP TO 3 TIMES A DAY. active Not Available Not Available No t Available loratadine 10 mg tablet TOME 1 TABLETA POR V A ORAL TODOS LOS D active Not Available Not Available No t Available Ventolin HFA 90 mcg/actuatio n aerosol inhaler TAKE 1 PUFF ORALLY EVERY 4 TO 6 HOURS NEEDED FOR FOR WHEEZING active Not Available Not Available No t Available oxycodone 5 mg tablet TAKE 1 TABLET BY MOUTH EVERY 8 HOURS NEEDED FOR PAIN active Not Available Not Available No t Available cholecalcife rol (vitamin D3) 25 mcg (1,000 unit) tablet TOME TAYLOR TABLETA TODOS LOS D active Not Available Not Available No t Available FreeStyle Lite Strips USE SEG N LO INDICADO DOS VECES AL D A active Not Available Not Available No t Available cholecalcife rol (vitamin D3) 50 mcg (2,000 unit) capsule TOME TAYLOR C PSULA TODOS LOS D active Not Available Not Available No t Available magnesium 400 mg (as magnesium oxide) capsule TOME 1 C PSULA POR V A ORAL TODOS LOS D (FOR LOW MAGNESIUM) active Not Available Not Available N ot Available Easy Touch Twist Lancets 33 gauge USE DIRECTED TO TEST BLOOD SUGAR TWICE DAILY active Not Available Not Available No t Available Trulicity 0.75 mg/0.5 mL subcutaneous pen injector INJECT ONE PEN (=0.75MG) SUBCUTANEOU SLY ONCE A WEEK DIRECTED active Not Available Not Available No t Available Daily-Royal (with folic acid) 400 mcg tablet TOME TAYLOR TABLETA TODOS LOS OSWALD CON ALIMENTO active Not Available Not Available No t Available Vitals Date Recorded Body height Body mass index (BMI) Body weight Provider Name and Address Organization Details Last Updated DateTime 11/28/2023 154.94 cm 39.9 kg/m2 26107.99 g Dustin Francis [place] - [facility] 11/28/2023 09:01:32 Social History None recorded. Functional Status None recorded. Mental Status None recorded. Family History Nothing Reported. Medical History No medical history recorded. Gynecological HistoryNo gynecological history recorded. Obstetrics History GPAL:G 0 P 0 0 0 0 Past Encounters Encounter ID Performer Location Encounter Start Date Encounter Closed Date Diagnosis/Indication Diagnosis SNOMED-CT Code Diagnosis ICD10 Code [id number] YIN ZAVALETA MD [facility] [address] [place] [address] 11/28/2023 08:57:25 11/28/2023 09:25:04 Chronic hoarseness 6939106444 105 R49.0 Feeling of lump in throat 127384584 R09.89 Obstructiv e sleep apnea syndrome 23248053 G47.33 Moderate p ersistent asthma 037257251 J45.40 Health Concerns Section Related Observation LastModified by Organization Detai ls LastModified Time None Recorded Concern Status LastModified by Organization Details LastModified Time None Recorded Advance Directives Directive None Recorded Payers Encounter Date Sequence Insurance Name Policy Number Policy Angel Covered Member ID Angel Member ID Guarantor Name 11/28/2023 1 [place] [facility] Ann-Marie Flores [id number] Ann-Marie Flores Notes Date Note Type Note Provider Name and Address Organization Details Recorded Time 11/28/2023 text/html Long standing GERD, gastritis, KAYLEE, asthma and hoarseness. Feels throat irritated with spicy food leading ot cough and tickle in throat. Feels trouble swallowing for a long time. Prior barium swallows and hx of gastric bypass for weight loss. Swallowing issue for many years.Waiting for colonoscopy YIN REEVES MD [address] [facility],[address] [address], [place], [address], [facility] - [facility] 11/28/2023 09:23:20 OBGyn Episode No OBEpisode recorded.
== END 2024-05-03 09:56 | disposition home or self-care (01) ==
LOC: HO.MAMMO 09:55
PROVIDERS: PCP Internal Medicine; Visit Provider Internal Medicine
DX: Z12.31 Encounter for screening mammogram for malignant neoplasm of breast (principal)
CPT/HCPCS: 77063; 77067

== ENCOUNTER → 2024-05-03 10:15 | Outpatient (BNV) | payer MEDICAID, SELFPAY | PROVIDERS: PCP Internal Medicine; Visit Provider Internal Medicine | DX: Z12.31 Encounter for screening mammogram for malignant neoplasm of breast (principal) | CPT/HCPCS: 77063; 77067 ==

== ENCOUNTER 2024-06-18 10:39 | Outpatient (AMB) | payer MEDICAID, SELFPAY ==
--- NOTE | 2024-06-18 10:55 | MHC.OFFVIS ---
Vital Signs 06/18/24 10:56 Height 5 ft 1 in Weight 217 lb 2.485 oz BMI 41.0 BP 120/70 Blood Pressure Location Lt brachial Position Sitting Pulse 95 Pulse Source Pulse Oximeter Pulse Oximetry (%) 97 Oxygen Delivery Method Room Air Intake Visit Reasons: Obstructive sleep apnea Intake Note: pt is here for follow up and states she coughs too much when she finishes her machine. Assistant Front End Manager Required: No Allergies sulfamethoxazole [From Bactrim] Allergy (Intermediate, Verified 06/18/24 11:15) RASH Medication List - Last Reconciled 06/18/24 by Shaylee Carrillo MD albuterol sulfate 2.5 mg (3 mL) inhalation Q4H PRN albuterol sulfate 90 mcg/actuation (Ventolin HFA) 1 puff PO Q4-6H PRN atorvastatin 40 mg PO BEDTIME blood sugar diagnostic (FreeStyle Lite Strips) As directed celecoxib 200 mg PO BID cholecalciferol (vitamin D3) 25 mcg PO DAILY citalopram 1 tab PO QAM cyanocobalamin (vitamin B-12) (Vitamin B-12) 1,000 mcg PO DAILY cyclobenzaprine 10 mg PO TID PRN docusate sodium 100 mg PO BID 14 days dulaglutide (Trulicity) mg subcut QWEEK epinephrine 0.3 mg IM Q10M PRN fluticasone propion-salmeterol 250-50 mcg/dose (Advair Diskus) 1 inh PO BID fluticasone propionate 50 mcg/actuation (Flonase Allergy Relief) 1 spray intranasal DAILY furosemide 40 mg PO DAILY hydroxyzine HCl 1 tab PO BEDTIME PRN ipratropium bromide 1 - 2 sprays intranasal PRN lancets (Easy Touch Twist Lancets) As directed loratadine 10 mg PO DAILY lorazepam 0.5 mg PO BID PRN magnesium oxide 400 mg PO DAILY magnesium oxide 250 mg PO DAILY montelukast 10 mg PO BEDTIME multivitamin with folic acid 400 mcg (Daily-Royal (with folic acid)) 1 tab PO DAILY pantoprazole 40 mg PO DAILY thiamine HCl (vitamin B1) 100 mg PO DAILY tramadol 50 mg PO walker Folding Front wheeled walker zolpidem 10 mg PO BEDTIME PRN Do you need a note to return to daycare/school/sports/work: No HPI HPI Obstructive sleep apnea: Details: 58 years old very pleasant female is here for follow-up after more than 6 months. She remains morbidly obese and has diagnosis of obstructive sleep apnea being treated with CPAP. Her usage of CPAP has definitely improved and now she uses almost 6 hours every night. She sleeps good but claims that in the morning when she takes off her mask she has some cough. She has had no respiratory infection She is being treated, for allergic rhinitis and bronchial asthma, and uses Advair 250-50 in 1 inhalation b.i.d. along with albuterol HFA p.r.n.. She is also diabetic, trying to lose weight. She is on Trulicity injection, but has not lost much weight yet. [facility] Medical History Osteoarthritis of left knee Hypersomnolence Renal calculi Diabetes COVID-19 vaccine administered COPD (chronic obstructive pulmonary disease) Allergic rhinitis KAYLEE on CPAP Obesity (BMI 30-39.9) Obesity Axillary hidradenitis suppurativa GERD (gastroesophageal reflux disease) Asthma Arthritis Hypertension Hyperlipidemia Surgical History S/P total knee arthroplasty (09/20/22) History of carpal tunnel release Hx of knee surgery Hx of cystoscopy History of esophagogastroduodenoscopy (EGD) H/O colonoscopy Hx of total knee replacement History of salpingoophorectomy H/O lithotripsy H/O hemicolectomy H/O tubal ligation Hx of cholecystectomy S/P laparoscopic sleeve gastrectomy Family History Mother No problems noted. Father No problems noted. Son No problems noted. Daughter No problems noted. Son No problems noted. Sister No problems noted. Sister No problems noted. Brother No problems noted. Brother No problems noted. Brother No problems noted. Brother No problems noted. 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 Female Reproductive History Menstrual Age of Menarche: 7 Review of Systems Const All systems reviewed & are unremarkable except as noted in HPI and below Eyes Reports no additional complaints ENT Reports change in voice (MILD TO MODERATE DEGREE OF HOARSENESS, HAS ENT CONSULT) Card Denies chest pain, Denies irregular heart rhythm and Denies leg edema Resp Reports as per HPI GI Reports heartburn (Controlled with med) Reports no additional complaints Musc Reports back pain and Reports myalgias Skin/Breast Reports system reviewed and no additional complaints, except as documented Neuro Reports no additional complaints Psych Reports anxiety and Reports depression Valentin/Lymph Reports no additional complaints Physical Exam Vital Signs: Last Vital Signs Pulse 95 06/18/24 10:56 BP 120/70 06/18/24 10:56 Pulse Ox 97 06/18/24 10:56 Oxygen Delivery Method Room Air 06/18/24 10:56 BMI result Body Mass Index 41.0 Const General: comfortable, no acute distress, alert and awake Orientation/consciousness: patient oriented x3 HEENT Head: Yes normal to inspection General nose exam: No nasal polyps present and No nasal discharge present Face and sinus: Yes sinuses nontender Mouth: oropharynx normal Throat: Yes posterior oropharynx normal Eyes General: appearance normal, both eyes and all related structures Neck Neck: Yes normal visual inspection, Yes no lymphadenopathy, Yes trachea midline, Yes no JVD and Yes other (Neck is short and obese, circumference 16 in.) Thyroid: Thyroid normal Chest Chest palpation & inspection: normal inspection of the chest, normal palpation of entire chest wall and no tenderness Resp Other: Breath sounds are slightly distant. Both lungs are clear with prolonged expiratory phase. No wheezes or rhonchi are heard. Cardio Palpation: normal PMI Rate: regular rate Rhythm: regular rhythm Heart sounds: no gallops and no murmurs GI Palpation (GI): Soft to palpation, nontender, No hepatosplenomegaly present, no masses and Other GI palpation findings present (Abdomen is obese and slightly protuberant) Auscultation: normal bowel sounds Back/Spine/Pelvis Thoracic/Lumbar Spine: thoracic and lumbar spine normal to inspection and thoraco-lumbar ROM limited Skin General skin exam: no rashes or lesions noted Neuro General: patient oriented x3 and no focal motor deficits Cranial nerves: Yes CN's II-XII intact bilaterally Extrem General: Yes normal to inspection, Yes no clubbing, cyanosis or edema and Yes no calf tenderness Psych Appearance: grossly normal Speech and movement: Normal speech and movement present Results Reviewed Results Reviewed: Compliance report for the last 30 nights is reviewed. She has used 30/30 nights, 100%. Average usage per night 5 hours 57 minutes which is excellent. Pressure setting is 6-16 cm and average usage has been 6-7 cm. Residual AHI only 0.3, Assessment & Plan Assessment & Plan (1) Morbid obesity with BMI of 40.0-44.9, adult: Comment: Remains grossly obese and has not been able to lose much weight. She is not able to walk or do much exercise due to arthritis in the joint. Code(s): E66.01 - Morbid (severe) obesity due to excess calories; Z68.41 - Body mass index [BMI] 40.0-44.9, adult Category: Medical Plan: Currently she is on Trulicity injections for her diabetes and hopefully with this medication she will lose some weight. (2) KAYLEE (obstructive sleep apnea): Comment: PATIENT HAS LONG-STANDING HISTORY OF OBSTRUCTIVE SLEEP APNEA, SHE HAS BEEN USING CPAP REGULARLY EVERY NIGHT AND DENIES ANY SPECIFIC ISSUES WITH THE MASK OR CP.AP DEVICE CLAIMS THAT SHE SLEEPS WELL. Code(s): G47.33 - Obstructive sleep apnea (adult) (pediatric) Category: Medical Plan: She is commended for good compliance. And advised to keep on using the CPAP every night almost 6 hours or more. (3) Allergic rhinitis: Comment: SHE HAS HISTORY OF CHRONIC ALLERGIC RHINITIS. SHE IS SEEING ALLERGY SPECIALISTS AND IS CURRENTLY ON IMMUNOTHERAPY. CLAIMS THAT HER SYMPT.OMS ARE MUCH LESS Code(s): J30.9 - Allergic rhinitis, unspecified Category: Medical Plan: Continue with immunotherapy and also, Montelukast 10 mg once a day Flonase 1 spray in each nostril daily Loratadine 10 mg once a day p.r.n. (4) COPD (chronic obstructive pulmonary disease): Comment: SHE HAS COMBINATION OF MILD ASTHMA, COPD AND RESTRICTIVE LUNG DISORDER STABLE AND WELL CONTROLLED AT THIS TIME. Code(s): J44.9 - Chronic obstructive pulmonary disease, unspecified Category: Medical Plan: Continue Advair 250-51 inhalation b.i.d.. Albuterol HFA 2 puffs Q 4-6 hours p.r.n. or alternatively may use albuterol solution in the nebulizer Q 4-6 hours p.r.n. . Coding Level of Care Code Est Pt Level 4 (50398) Diagnoses Morbid obesity with BMI of 40.0-44.9, adult E66.01; Z68.41 KAYLEE (obstructive sleep apnea) G47.33 Allergic rhinitis J30.9 COPD (chronic obstructive pulmonary disease) J44.9
[2024-06-18 10:56] VITALS: BP 120/70; PULSE 95; O2SAT 97; BMI 41.0
--- OUTSIDE RECORDS SUMMARY | 2024-06-18 11:41 | XMS_ITS | Encounter Summary ---
Author Organization [employer] Address [address] [place] [address] [address] [place] [address] Care Team Providers Care Health Unit Supervisor Name Role Phone Leelee Yanes MD Primary Care Provider + Reason for Visit * Reason Comments Med Refill Encounter Details Date Type Department Care Team (Late Contact Info) Description 07/12/2022 Refill [facility] [address] [place] [address] [phone] Name, MD Charles [address] [place] [address] [phone] Acute bilateral low back pain, unspecified whether sciatica present Social History Tobacco Use Types Packs/Day Years Used Date Smoking Tobacco: Never Smokeless Tobacco: Never Alcohol Use Standard Drinks/Week Comments Never 0 (1 standard drink = 0.6 oz pur e alcohol) Comments Unknown Sex and Gender Information Value Date Recorded Sex Assigned at Female 02/28/2022 10:14 AM EDT Legal Sex Female 10:14 AM EDT Gender Identity Female 02/28/2022 10:14 AM EDT Sexual Orientation Choose not to disclose 2021 10:14 AM EDT COVID-19 Exposure Response Date Recorded In the last 10 days, have yo u been in contact with someone who was confirmed or suspected to have Coronavirus/COVID-19? No / Unsure 06/24/2022 11:38 AM EST documented as of this encounter Plan of Treatment Upcoming Encounters Date Type Department Care Team (Late Contact Info) Description 10/03/2024 11:30 AM EDT Clinical Support [facility] [address] [place] [address] [phone] Yoana Perry RN documented as of this encounter Visit Diagnoses Diagnosis Acute bilateral low back pain, unspecified whether sciatica present documented in this encounter Care Teams Health Unit Supervisor Relationship Specialty Start Date End Date Leelee Yanes MD [address] [place] [id number] PCP - General Family Medicine 06/11/20 documented as of this encounter
--- OUTSIDE RECORDS SUMMARY | 2024-06-18 11:41 | XMS_ITS | Encounter Summary ---
Author Organization [employer] Address [address] [place] [address] [address] [place] [address] Care Team Providers Care Mobile Developer Name Role Phone Leelee Yanes MD Primary Care Provider + Reason for Visit * Reason Comments Med Refill Encounter Details Date Type Department Care Team (Late st Contact Info) Description 06/05/2023 Refill [facility] [address] [place] [address] Leelee Yanes MD [address] [place] [address] Lumbar radiculopathy; Primary osteoarthritis of left knee; Acute bilateral low back pain, unspecified whether sciatica present Social History Tobacco Use Types Packs/Day Years Used Date Smoking Tobacco: Never Smokeless Tobacco: Never Alcohol Use Standard Drinks/Week Comments Never 0 (1 standard drink = 0.6 oz pur e alcohol) Depression Answer Date Recorded Patient Health Questionnaire-9 Score 16 05/31/2023 Patient Health Questionnaire-9 Score 16 05/31/2023 Last PHQ-9: Questionnaire Data Not on file 0 05/31/2023 Housing Stability Answer Date Recorded What is your housing situation today? I have katt nuno 02/14/[address] you li ve. Do you have problems with any of the following? None of the above 02/14/2023 Food Insecurity Answer Date Recorded Within the past 12 months, y ou worried that your food would run out before you got money to buy more: Never True 02/14/2023 Within the past 12 months,th e food you bought just didn't last and you didn't have enough money to get more: Never True Transportation Answer Date Recorded In the past 12 months, has l ack of transportation kept you from medical appts, meetings, work or from getting things needed for daily living? No 02/14/2023 Utilities Answer Date Recorded In the past 12 months, has t he electric, gas, oil or water company threatened to shut off services in your home? No 02/14/2023 Depression Answer Date Recorded Patient Health Questionnaire-2 Score 6 05/31/2023 Comments Unknown Sex and Gender Information Value Date Recorded Sex Assigned at Female 02/28/2022 10:14 AM EDT Legal Sex Female 10:14 AM EDT Gender Identity Female 02/28/2022 10:14 AM EDT Sexual Orientation Choose not to disclose 2021 10:14 AM EDT documented as of this encounter Plan of Treatment Upcoming Encounters Date Type Department Care Team (Late st Contact Info) Description 10/03/2024 11:30 AM EDT Clinical Support [facility] [address] [place] [address] Yoana Perry RN documented as of this encounter Visit Diagnoses Diagnosis Lumbar radiculopathy Thoracic or lumbosacral neuritis or radiculitis, unspecified Primary osteoarthritis of left knee Acute bilateral low back pain, unspecified whether sciatica present documented in this encounter Additional Health Concerns Assessment Noted Time PHQ-9 Depression Total Score: 16 024 9:59 AM EST documented as of this encounter Care Teams Mobile Developer Relationship Specialty Start Date End Date Leelee Yanes MD [address] [place] [address] PCP - General Family Medicine 06/11/20 documented as of this encounter
--- OUTSIDE RECORDS SUMMARY | 2024-06-18 11:41 | XMS_ITS | Encounter Summary ---
Author Organization [employer] Address [address] [place] [address] [address] [place] [address] Care Team Providers Care Car Changer Name Role Phone Leelee Yanes MD Primary Care Provider + Reason for Visit * Reason Comments Med Refill Encounter Details Date Type Department Care Team (Late Contact Info) Description 05/24/2022 Refill [facility] [address] [place], [place] [phone] Leelee Yanes MD [address] [place] [phone] Acute bilateral low back pain, unspecified whether sciatica present Social History Tobacco Use Types Packs/Day Years Used Date Smoking Tobacco: Never Assessed Comments Unknown Sex and Gender Information Value [...] Description 10/03/2024 11:30 AM EDT Clinical Support [facility] [address] [place] [address] [phone] Yoana Perry RN documented as of this encounter Visit Diagnoses Diagnosis Acute bilateral low back pain, unspecified whether sciatica present documented in this encounter Care Teams Car Changer Relationship Specialty Start Date End Date Leelee Yanes MD [address] [place] [address] [phone] PCP - General Family Medicine 06/11/20 documented as of this encounter
--- OUTSIDE RECORDS SUMMARY | 2024-06-18 11:42 | XMS_ITS | Encounter Summary ---
Author Organization [employer] Address [address] [facility] [address]t [place] [address] Care Team Providers Care Tuckpointer Cleaner Caulker Name Role Phone Leelee Yanes MD Primary Care Provider + Reason for Visit * Reason Comments Med Refill Encounter Details Date Type Department Care Team (Late st Contact Info) Description 06/10/2024 Refill [facility] [address] [place], [place] [phone] Leelee Yanes MD [address] [place] [address] Lumbar radiculopathy; Primary osteoarthritis of left knee; Acute bilateral low back pain, unspecified whether sciatica present Social History Tobacco Use Types Packs/Day Years Used Date Smoking Tobacco: Never Smokeless Tobacco: Never Alcohol Use Standard Drinks/Week Comments Never 0 (1 standard drink = 0.6 oz pur e alcohol) Alcohol Answer Date Recorded Frequency of Alcohol Consumption Not on file 09/21/2023 Average Number of Drinks Not on file 024 Frequency of Binge Drinking Not on file 08/30 Score 0 09/21/2023 Depression Answer Date Recorded Patient Health Questionnaire-9 Score 16 05/31/2023 Patient Health Questionnaire-9 Score 16 05/31/2023 Last PHQ-9: Questionnaire Data Not on file 0 05/31/2023 Housing Stability Answer Date Recorded What is your housing situation today? I have katt nuno 09/21/[address] you li ve. Do you have problems with any of the following? None of the above 09/21/2023 Food Insecurity Answer Date Recorded Within the past 12 months, y ou worried that your food would run out before you got money to buy more: Never True 09/21/2023 Within the past 12 months,th e food you bought just didn't last and you didn't have enough money to get more: Never True Transportation Answer Date Recorded In the past 12 months, has l ack of transportation kept you from medical appts, meetings, work or from getting things needed for daily living? No 09/21/2023 Utilities Answer Date Recorded In the past 12 months, has t he electric, gas, oil or water company threatened to shut off services in your home? No 09/21/2023 Depression Answer Date Recorded Patient Health Questionnaire-2 [...] Description 10/03/2024 11:30 AM EDT Clinical Support [facility] [address] [place] [address] Yoana Perry RN documented as of this encounter Visit Diagnoses Diagnosis Lumbar radiculopathy Thoracic or lumbosacral neuritis or radiculitis, unspecified Primary osteoarthritis of left knee Acute bilateral low back pain, unspecified whether sciatica present documented in this encounter Additional Health Concerns Assessment Noted Time PHQ-9 Depression Total Score: 16 024 9:59 AM EST documented as of this encounter Care Teams Tuckpointer Cleaner Caulker Relationship Specialty Start Date End Date Leelee Yanes MD [address] [place] [address] PCP - General Family Medicine 06/11/20 documented as of this encounter
--- OUTSIDE RECORDS SUMMARY | 2024-06-18 11:42 | XMS_ITS | Encounter Summary ---
Author Organization [employer] Address [address] [place] [address] [address] [place] [address] Care Team Providers Care Deployment Technician Name Role Phone Leelee Ibarra MD Primary Care Provider + Reason for Visit * Reason Onset Date Comments Med Refill 05/22/2024 Encounter Details Date Type Department Care Team ([facility] st Contact Info) Description 05/22/2024 Refill [facility] [address] [place] [address] Leelee Ibarra MD [address] [place] [address] Social History Tobacco Use Types Packs/Day Years [...] AM EDT documented as of this encounter Miscellaneous Notes * Addendum Note - Leelee Ibarra MD - 05/24/2024 3:47 PM ESTAddended by: LEELEE IBARRA on: 05/24/2024 03:47 PM Modules accepted: Orders * Addendum Note - Twila Rose RN - 05/24/2024 10:20 AM ESTAddended by: TWILA ROSE on: 05/24/2024 10:20 AM Modules accepted: Orders * Telephone Encounter - Twila Rose RN - 05/24/2024 10:09 AM EST Per chart review, Trulicity medication was to be discontinued and changed to ozempic one the PA wasapproved. Ozrmpic PA was denied d/t formulary change requesting wegovy. Howvever, wegovy PA was denied. TC placed to [facility] pharmacy to confirm Trulicity medication is still covered. RN was informed it is covered. TC placed to patient via [employer] ([employer] #[id number]) to inform refill for Trulicity will be sent to the provider. Patient verbalized understanding. Patient to f/u PRN. * Telephone Encounter - Ge Mayorga - 05/24/2024 9:37 AM EST Tc from pt in regards medication that has been discontinued, Pt is diabetic and hasn't had her insulin as pt states needs an answer on what will she be taking to replace Trulicity medication as she cn be with out medication. [phone] * Telephone Encounter - Ghada Isidro LPN - 05/22/2024 3:05 PM EST Medication was discontinued * Telephone Encounter - Moe Potter - 05/22/2024 2:47 PM EST TC from pt requesting medication refill. Medications needing refill : dulaglutide (Trulicity) 0.75 MG/0.5ML solution pen-injecto To be sent to: [facility] - [place], [place] - [address] [place] [address] documented in this encounter Plan of Treatment Upcoming Encounters Date Type Department Care Team (Late st Contact Info) Description 10/03/2024 11:30 AM EDT Clinical Support [facility] [address] [place] [address] Yoana Perry RN documented as of this encounter Visit Diagnoses Not on filedocumented in this encounter Additional Health Concerns Assessment Noted Time PHQ-9 Depression Total Score: 16 024 9:59 AM EST documented as of this encounter Care Teams Deployment Technician Relationship Specialty Start Date End Date Leelee Ibarra MD [address] [place] [address] PCP - General Family Medicine 06/11/20 documented as of this encounter
--- OUTSIDE RECORDS SUMMARY | 2024-06-18 11:42 | XMS_ITS | Encounter Summary ---
Author Organization [employer] Address [address] [place] [address] [address] [place] [address] Care Team Providers Care Hand Bunch Maker Name Role Phone Leelee Yanes MD Primary Care Provider + Reason for Visit * Reason Onset Date Comments Med Refill 06/05/2024 GENERAL OFFICE ASSOCIATE Renewal today 06/05/2024 Encounter Details Date Type Department Care Team (Late st Contact Info) Description 06/05/2024 Refill [facility] [address] [place] [address] Yoana Perry RN Chronic back pain, unspecified back location, unspecified back pain laterality (Primary Dx) Social History Tobacco Use Types Packs/Day Years [...] as of this encounter Miscellaneous Notes * Telephone Encounter - Yoana Perry RN - 06/05/2024 12:03 PM EST Pt had GENERAL OFFICE ASSOCIATE Renewal appt today BPI updated Pain severity score of 9, activity interference score of 5.4. Previous BPI completed 11/06/23 with pain severity score of 6, activity interference score of 8.7. documented in this encounter Plan of Treatment Upcoming Encounters Date Type Department Care Team (Late st Contact Info) Description 10/03/2024 11:30 AM EDT Clinical Support [facility] [address] [place] [address] Yoana Perry, RN documented as of this encounter Visit Diagnoses Diagnosis Chronic back pain, unspecified back location, unspecified back pain laterality- Primary documented in this encounter Additional Health Concerns Assessment Noted Time PHQ-9 Depression Total Score: 16 024 9:59 AM EST documented as of this encounter Care Teams Hand Bunch Maker Relationship Specialty Start Date End Date Leelee Yanes MD [address] [place] [address] PCP - General Family Medicine 06/11/20 documented as of this encounter
--- OUTSIDE RECORDS SUMMARY | 2024-06-18 11:42 | XMS_ITS | Encounter Summary ---
Author Organization [employer] Address [address] [place] [address] 7t [place] [address] Care Team Providers Care Inventory Planner Name Role Phone Leelee Yanes MD Primary Care Provider + Reason for Visit * Reason Onset Date Comments Med Refill 06/10/2024 Encounter Details Date Type Department Care Team (Late st Contact Info) Description 06/10/2024 Refill [facility] [address] [place] [address] Leelee Yanes MD [address] [place] [address] Lumbar radiculopathy; Primary osteoarthritis of left knee; [...] encounter Miscellaneous Notes * Telephone Encounter - Nader Hernandez - 06/10/2024 10:55 AM EST TC from pt requesting medication refill. Medications needing refill : traMADol (Ultram) 50 MG tablet To be sent to: traMADol (Ultram) 50 MG tablet documented in this encounter Plan of Treatment Upcoming Encounters Date Type Department Care Team (Late st Contact Info) Description 10/03/2024 11:30 AM EDT Clinical Support [facility] [address] [place] [address] Yoana Perry RN documented as of this encounter Visit Diagnoses Diagnosis Lumbar radiculopathy Thoracic or lumbosacral neuritis or radiculitis, unspecified Primary osteoarthritis of left knee Acute bilateral low back pain, unspecified whether sciatica present documented in this encounter Additional Health Concerns Assessment Noted Time PHQ-9 Depression Total Score: 16 024 9:59 AM EST documented as of this encounter Care Teams Inventory Planner Relationship Specialty Start Date End Date Leelee Yanes MD [address] [place] [address] PCP - General Family Medicine 06/11/20 documented as of this encounter
--- OUTSIDE RECORDS SUMMARY | 2024-06-18 11:42 | XMS_ITS | Encounter Summary ---
Author Organization [employer] Address [address] [place] [address] 7t [place] [address] Care Team Providers Care Floor Layer Name Role Phone Leelee Yanes MD Primary Care Provider + Encounter Details Date Type Department Care Team (Latest Contact Info) Description 06/05/2024 Travel Social History Tobacco Use Types Packs/Day Years [...] Description 10/03/2024 11:30 AM EDT Clinical Support [facility] MEDICINE [address] [place] [phone] Yoana Perry RN documented as of this encounter Visit Diagnoses Not on filedocumented in this encounter Additional Health Concerns Assessment Noted Time PHQ-9 Depression Total Score: 16 024 9:59 AM EST documented as of this encounter Care Teams Floor Layer Relationship Specialty Start Date End Date Leelee Yanes MD [address] [place] [phone] PCP - General Family Medicine 06/11/20 documented as of this encounter
--- OUTSIDE RECORDS SUMMARY | 2024-06-18 11:42 | XMS_ITS | Encounter Summary ---
Author Organization [employer] Address [address] [place] [address] 7t [place] [address] Care Team Providers Care Steward/Stewardess Third Class Name Role Phone Leelee Yanes MD Primary Care Provider + Encounter Details Date Type Department Care Team (Late st Contact Info) Description 05/03/2022 Orders Only [facility] [address] [place] [address] Marbella Munoz LPN Social History Tobacco Use Types Packs/Day Years [...] Description 10/03/2024 11:30 AM EDT Clinical Support [facility] [address] [place] [address] Yoana Perry, RN documented as of this encounter Visit Diagnoses Not on filedocumented in this encounter Care Teams Steward/Stewardess Third Class Relationship Specialty Start Date End Date Leelee Yanes MD [address] [place] [address] PCP - General Family Medicine 06/11/20 documented as of this encounter
--- OUTSIDE RECORDS SUMMARY | 2024-06-18 11:42 | XMS_ITS | Encounter Summary ---
Author Organization [employer] Address [address] [place] [address] 7t [place] [address] Care Team Providers Care Mass Communications Instructor Name Role Phone Leelee Yanes MD Primary Care Provider + Reason for Visit * Reason Comments Med Refill Encounter Details Date Type Department Care Team ([facility] st Contact Info) Description 05/22/2024 Refill [facility] [address] [place] [address] Leelee Yanes MD [address] [place] [address] Type 2 diabetes mellitus without complication, without long-term current use of insulin ([facility]) Social History Tobacco Use Types Packs/Day Years [...] Clinical Support [facility] [address] [place] [address] Yoana Perry RN documented as of this encounter Visit Diagnoses Diagnosis Type 2 diabetes mellitus without complication, without long-term current use of insulin ([facility]) documented in this encounter Additional Health Concerns Assessment Noted Time PHQ-9 Depression Total Score: 16 024 9:59 AM EST documented as of this encounter Care Teams Mass Communications Instructor Relationship Specialty Start Date End Date Leelee Yanes MD [address] [place] [phone] PCP - General Family Medicine 06/11/20 documented as of this encounter
--- OUTSIDE RECORDS SUMMARY | 2024-06-18 11:42 | XMS_ITS | Encounter Summary ---
Author Organization [employer] Address [address] [place] [address] 7t [place] [address] Care Team Providers Care Safety And Security Officer Name Role Phone Leelee Yanes MD Primary Care Provider + Reason for Visit * Reason Comments Med Refill Encounter Details Date Type Department Care Team (Late st Contact Info) Description 06/25/2022 Refill [facility] MEDICINE [address] [place] [phone] Marbella Carlin DO [address] [place] [address] Acute bilateral low back pain, unspecified whether [...] Description 10/03/2024 11:30 AM EDT Clinical Support [facility] MEDICINE [address] [place] [phone] Vicky, Yoana, RN documented as of this encounter Visit Diagnoses Diagnosis Acute bilateral low back pain, unspecified whether sciatica present documented in this encounter Care Teams Safety And Security Officer Relationship Specialty Start Date End Date Leelee Yanes MD [address] [place] [phone] PCP - General Family Medicine 06/11/20 documented as of this encounter
--- OUTSIDE RECORDS SUMMARY | 2024-06-18 11:42 | XMS_ITS | Encounter Summary ---
Author Organization [employer] Address [address] [place] [address] 7t [place] [address] Care Team Providers Care Nurse Staff Name Role Phone Leelee Yanes MD Primary Care Provider + Reason for Visit * Reason Onset Date Comments Med Refill 05/24/2024 Encounter Details Date Type Department Care Team ([facility] st Contact Info) Description 05/24/2024 Telephone [facility] MED[facility]INE [address] [place], [place] [phone] Leelee Yanes MD [address] [place], [place] [phone] Med Refill Social History Tobacco Use Types Packs/Day Years [...] encounter Miscellaneous Notes * Telephone Encounter - Marbella Munoz LPN - 05/24/2024 3:23 PM EST Medication pended to PCP for approval. * Telephone Encounter - Moe Potter - 05/24/2024 3:15 PM EST TC from pt requesting medication refill. Medications needing refill : dulaglutide (Trulicity) 0.75 MG/0.5ML solution pen-injector To be sent to: [facility] - [place], [place] - [address] [facility] PT DOES NOT HAVE ANY MEDICATION LEFT documented in this encounter Plan of Treatment Upcoming Encounters Date Type Department Care Team (Late st Contact Info) Description 10/03/2024 11:30 AM EDT Clinical Support [facility] MEDICINE [address] [place] [address] Yoana Perry RN documented as of this encounter Visit Diagnoses Not on filedocumented in this encounter Additional Health Concerns Assessment Noted Time PHQ-9 Depression Total Score: 16 024 9:59 AM EST documented as of this encounter Care Teams Nurse Staff Relationship Specialty Start Date End Date Leelee Yanes MD [address] [place] [phone] PCP - General Family Medicine 06/11/20 documented as of this encounter
--- OUTSIDE RECORDS SUMMARY | 2024-06-18 11:42 | XMS_ITS | Encounter Summary ---
Author Organization [employer] Address [address] [place] [address] 7t [place] [address] Care Team Providers Care Commercial Center Manager Name Role Phone Leelee Yanes MD Primary Care Provider + Reason for Visit * Reason Comments Med Refill Encounter Details Date Type Department Care Team ([facility] st Contact Info) Description 06/14/2024 Refill [facility] [address] [place] [address] Leelee Yanes MD [address] [place] [address] Type 2 diabetes mellitus without complication, without long-term current use of insulin ([facility]) Social History Tobacco Use Types Packs/Day Years [...] Description 10/03/2024 11:30 AM EDT Clinical Support [facility] MEDICINE [address] [place] [address] Yoana Perry RN documented as of this encounter Visit Diagnoses Diagnosis Type 2 diabetes mellitus without complication, without long-term current use of insulin ([facility]) documented in this encounter Additional Health Concerns Assessment Noted Time PHQ-9 Depression Total Score: 16 024 9:59 AM EST documented as of this encounter Care Teams Commercial Center Manager Relationship Specialty Start Date End Date Leelee Yanes MD [address] [place] [phone] PCP - General Family Medicine 06/11/20 documented as of this encounter
--- OUTSIDE RECORDS SUMMARY | 2024-06-18 11:42 | XMS_ITS | Encounter Summary ---
Author Organization [facility] Address [address] [place] [address] 7[address] [place] [address] Care Team Providers Care Biodiesel Technology Manager Name Role Phone Leelee Yanes MD Primary Care Provider + Encounter Details Date Type Department Care Team (Late st Contact Info) Description 05/18/2022 Orders Only [facility] MEDICINE [address] [place] [phone] Ghada Isidro LPN Social History Tobacco Use Types Packs/Day [...] Description 10/03/2024 11:30 AM EDT Clinical Support [facility] MEDICINE [address] [place] [phone] Yoana Perry, RN documented as of this encounter Visit Diagnoses Not on filedocumented in this encounter Care Teams Biodiesel Technology Manager Relationship Specialty Start Date End Date Leelee Yanes MD [address] [place] [phone] PCP - General Family Medicine 06/11/20 documented as of this encounter
--- OUTSIDE RECORDS SUMMARY | 2024-06-18 11:42 | XMS_ITS | Clinical Summary ---
Author Organization [employer] Address [address] [place] [address] [address] [place] [address] Care Team Providers Care Mirror Specialist Name Role Phone Leelee Yanes MD Primary Care Provider + Allergies Active Allergy Reactions Criticality Noted Date Comments Ceftriaxone 05/11/2010 Other reaction(s): Unknown, unspecified Cephalexin 05/11/2010 Other reaction(s): Unknown, unspecified Diltiazem 05/11/2010 Other reaction(s): Unknown, unspecified Pravastatin 06/21/2022 Simvastatin 05/11/2010 Other reaction(s): rash: & myalgias at 80 mg dos, Unknown Sulfamethoxazole 05/11/2010 Other reaction(s): unspecified Sulfamethoxazole-Trimethopr im Rash,Unknown Low 07/11/2019 Topiramate Unknown 07/11/2019 Trimethoprim 05/11/2010 Other reaction(s): unspecified Medications clotrimazole (Lotrimin) 1 % creamIndications: Candidiasis APLIQUE AL AREA AFECTADA DOS VECES AL JOSÉ LUIS EN LA MANANA Y EN LA NOCHE 30 g 1 023 Active Fluticasone-Salme terol (Advair Diskus) 250-50 MCG/ACT aerosol powder Inhale. 011 Active citalopram (CeleXA) 40 MG tablet Take 1 tablet by mouth at bed time. 013 Active buPROPion XL (Wellbutrin XL) 150 MG 24 hr tablet Take by mouth. 012 Active zolpidem (Ambien) 10 MG tablet Take by mouth at bed time. 013 Active cholecalciferol (Vitamin D-3) 50 MCG (2000 UT) capsule TOME TAYLOR C PSULA TODOS LOS D 023 Active albuterol (ProAir HFA) 108 (90 Base) MCG/ACT inhaler 4 times a day. 011 Active cyanocobalamin (Vitamin B-12) 1000 MCG tablet TOME TAYLOR TABLETA TODOS LOS D 022 Active diclofenac (Voltaren) 75 MG EC tablet TOME TAYLOR TABLETA DOS VECES AL D A 023 Active EPINEPHrine (Epipen) 0.3 MG/0.3ML injection syringe DIRECTED INJECTION CUANDO SEA NECESARIO ANAPHYLAXIS 30 DAYS 023 Active LORazepam (Ativan) 0.5 MG tablet TOME TAYLOR TABLETA TODOS LOS D CUANDO SEA NECESARIO 023 Active thiamine (,Vitamin B-1,) 100 MG tablet TOME TAYLOR TABLETA TODOS LOS D 023 Active magnesium (RA Natural Magnesium) 250 MG tabletIndications :correction current use of diuretic TAKE 1 TABLET BY MOUTH EVERY DAY 90 tablet 1 023 Active Blood Glucose Monitoring Suppl (CaktusStyle Lite) w/Device kit CHECK BS BY SUBCUTANEOUS ROUTE EVERY DAY 1 kit 023 Active Easy Touch Lancets 33G/Twist misc USE DIRECTED TO TEST BLOOD SUGAR TWICE DAILY 100 each 5 023 Active ipratropium (Atrovent) 0.03 % nasal spray INHALE 1-2 SPRAYS NASALLY NEEDED UP TO 3 TIMES A DAY. 024 Active Azelastine HCl 137 MCG/SPRAY solution INHALE 1 SPRAY IN EACH NOSTRIL TWICE DAILY 024 Active Ketotifen Fumarate 0.035 % solution PONGA TAYLOR GOTA EN NICOLE AFECTADO DOS VECES AL JOSÉ LUIS 5 mL 6 024 Active cyclobenzaprine (Flexeril) 10 MG tablet Take 1 tablet (10 mg) by mouth at bedtime for 14 days. 14 tablet 024 Active hydrocortisone (Anusol-HC) 2.5 % rectal cream Insert into the rectum 2 times daily. 28 g 024 Active pantoprazole (ProtoNix) 40 MG EC tablet TAKE 1 TABLET BY MOUTH EVERY MORNING 90 tablet 3 024 Active Multiple Vitamin (Daily-Royal Multivitamin) tablet TAKE 1 TABLET BY MOUTH WITH FOOD 90 tablet 3 024 Active furosemide (Lasix) 40 MG tablet TAKE 1 TABLET BY MOUTH EVERY DAY 90 tablet 3 024 Active docusate sodium (Colace) 100 MG capsule TAKE 1 CAPSULE BY ORAL ROUTE 1 - 2 TIMES EVERY DAY NEEDED FOR CONSTIPATION 180 capsule 3 024 Active atorvastatin (Lipitor) 40 MG tabletIndications :correction current use of diuretic TAKE 1 TABLET BY MOUTH EVERY DAY 90 tablet 1 024 Active Nystatin powder Use on affected areas bid 1 each 3 024 Active montelukast (Singulair) 10 MG tabletIndications :Moderate persistent asthma without complication TOME TAYLOR AMY TOIVAN LOS OSWALD AL ACOSTARSE 90 tablet 3 024 Active loratadine (Claritin) 10 MG tabletIndications :Seasonal allergies TAKE 1 TABLET BY MOUTH EVERY DAY 90 tablet 1 024 Active fluticasone (Flonase) 50 MCG/ACT nasal sprayIndications: Seasonal allergies SPRAY 2 SPRAYS IN EACH NOSTRIL EVERY MORNING 48 mL 1 024 Active Acetaminophen Extra Strength 500 MG tablet TAKE 1 TABLET BY MOUTH EVERY 8 HOURS IF NEEDED. 90 tablet 024 Active Dulaglutide (Trulicity) 1.5 MG/0.5ML solution auto-injector Inject 1.5 mg under the skin 1 (one) time per week. 2 mL 3 025 Active albuterol (2.5 MG/3ML) 0.083% nebulizer solution TAKE 3 ML BY NEBULIZER EVERY 6 HOURS NEEDED FOR COUGH, WHEEZING, OR SHORTNESS OF BREATH 90 mL 1 025 Active naloxone (Narcan) 4 mg/0.1 mL nasal sprayIndications: Chronic back pain, unspecified back location, unspecified back pain laterality Administer 1 spray (4 mg) into affected nostril(s) if needed for opioid reversal. May repeat every 2-3 minutes if needed, alternating nostrils, until medical assistance becomes available. 2 each 3 025 2025 Active traMADol (Ultram) 50 MG tabletIndications :Lumbar radiculopathy,Sun tomasa osteoarthritis of left knee,Acute bilateral low back pain, unspecified whether sciatica present Take 1 tablet (50 mg) by mouth every 12 (twelve) hours if needed for severe pain for up to 28 days. Do not start before June 13, 2024. 56 tablet 025 2024 Active glucose blood (FREESTYLE LITE) test stripIndications: Type 2 diabetes mellitus without complication, without long-term current use of insulin ([facility]) USE TO TEST BLOOD SUGAR TWICE A DAY 50 strip 11 025 Active glucose blood (FREESTYLE LITE) test stripIndications: Type 2 diabetes mellitus without complication, without long-term current use of insulin ([facility]) USE TO TEST BLOOD SUGAR TWICE A DAY 50 strip 11 023 2024 Discontinued Semaglutide-Weigh t Management (Wegovy) 0.25 MG/0.5ML solution auto-injector Inject 0.25 mg under the skin 1 (one) time per week. 2 mL 11 024 2024 Discontinued(O ther) albuterol (2.5 MG/3ML) 0.083% nebulizer solution Take 3 mL (2.5 mg) by nebulization every 6 (six) hours if needed for wheezing or shortness of breath. 75 mL 1 024 2024 Discontinued traMADol (Ultram) 50 MG tabletIndications :Lumbar radiculopathy,Sun randolph osteoarthritis of left knee,Acute bilateral low back pain, unspecified whether sciatica present Take 1 tablet (50 mg) by mouth every 12 (twelve) hours if needed for severe pain for up to 28 days. 56 tablet 025 2024 Discontinued(R eorder (will not trigger notification to Pharmacy)) Active Problems Problem Noted Date Diagnosed Date Body aches 04/25/2024 Assessment & Plan (04/25/2024 2:12 PM EST): Most likely related to electrolyte imbalance, due to history of viral GI + poor PO intake. Viral gastroenteritis 04/22/2024 Assessment & Plan (04/22/2024 4:25 PM EST): She has no evidence of dehydration. I will give her rx Zofran to take now and advance to liquid diet as tolerated,mainly Gatorade, Pedialyte, herbal teas, chicken broth x 1d. Continue Zofran prn nausea Advance to BRAT diet as tolerated. Take Tramadol as soon as she tolerates PO as she may be having some withdrawal form it. Advised to go to ED if she develops severe vomiting, abd pain,, fever or diarrhea doesn't stop after 24h rx Subacute maxillary sinusitis 04/01/2024 Assessment & Plan (04/01/2024 2:00 PM EST): Rx Doxy x 7d, she's allergic to cephalosporins Rest (sleep at least 8 hours a night). Hydrate with plenty of water (avoid caffeine and alcohol). Use saline nose drops to loosen mucus + Flonase bid x 7d Take Acetaminophen (Tylenol??)/Ibuprofen as needed to reduce fever, headache, body aches or discomfort Gargle with salt water and use throat sprays/lozenges for throat pain. Use heated, humidified air. If you do not have a humidifier, take hot showers. Cover coughs and sneezes using the crook of your elbow. If you have a fever, stay home and away from others (self isolation) until fever-free for 72 hours (temperature should be less than 100??F without medication Increase water intake Urge incontinence of urine 03/19/2024 Candidiasis 03/13/2024 Assessment & Plan (03/13/2024 2:46 PM EST): Not active, use Nystatin powder daily Use clotrimazole cream prn to affected areas. Vertigo 03/13/2024 Assessment & Plan (03/13/2024 2:48 PM EST): Most likely viral, exacerbated by dehydration Start Zofran prn nausea + Meclizine prn dizziness Advised re increase PO fluids, advance to soft diet as tolerated, continue Zofran prn. Call back if sxs persist after 1w Long toenail 02/20/2024 Assessment & Plan (02/20/2024 2:29 PM EDT): Refer to Podiatry. Long-term current use of opiate analgesic 2023 Overview (02/20/2024): Medication: Tramadol 50mg Q12H BID Indication: lumbar radiculopathy, OA bilat knees Last [facility] Agreement: 05/10/23 Assessment & Plan (02/20/2024 8:11 PM EDT): -Today was first group, she will decide if group setting or individual visit with RN is preferred. Scheduled for [facility] group 03/12/24 as requested. -Encouraged multifactorial approach to pain control including pharm and non- pharm modalities -UTOX and Pill count as expected Large breasts 12/18/2023 Assessment & Plan (01/03/2024 3:42 PM EDT): Patient blames cherelle breasts for his back pain Advised re eight reduction, wear appropriate bra support Re referral to plastic surgeon for evaluation of breast reduction, she's aware that she should loose weight prior to surgery. She will work on that and I will fu at next appt. Hemorrhoids 12/18/2023 Assessment & Plan (02/20/2024 4:26 PM EDT): Resolved. Continue Preparation H prn. Pt due for colonoscopy this year. I will send to GI. Assessment & Plan (01/03/2024 3:37 PM EDT): Improving Use Anusol rectal cream prn and avoid constipation Re consult prn. Electrolyte imbalance 07/19/2023 Assessment & Plan (07/19/2023 12:32 PM EDT): Magnesium and Potassium back to normal Advised to stop using supplementations Edema of right ankle 07/19/2023 Assessment & Plan (07/19/2023 12:54 PM EDT): - Most likely right ankle sprain - Advised to keep right lower extremely elevated, and apply ice to affected area and Tylenol PRN - Prescribed right ankle immobilizer, continue ambulation with walker Sprain of right ankle 07/19/2023 Assessment & Plan (09/21/2023 10:41 AM EDT): Seems to be related to sprain + achilles tendinitis vs denervation injury of foot muscles Pt awaiting Rx for diabetic shoes and inserts form podiatry MRI result from podiatry, may need steroid injection Ambulation w/ a cane to prevent falls Refer to PT Hypokalemia 06/22/2023 IFG (impaired fasting glucose) 05/31/2023 Calcification of left breast on mammography 05/03 Assessment & Plan (05/31/2023 3:01 PM EST): -Left breast biopsy scheduled for June 02, 2023. -Not on NSAIDS or Aspirins. - Not anticoagulated. -Follow up with Dr. Hackett? Acute exacerbation of chronic low back pain 05/03 Assessment & Plan (06/03/2023 1:02 PM EST): -Sp Epidural injections in the past. -Refer to Physical Therapy. -Continue to use Tramadol to maximize exercise. -Patient has 11 Tramadol pills left in her pill bottle, matching number of days left for next refill, next refill due after 06/05/23. She was unable to provide urine for Utox today, she will fu with [facility] nurse, she's aware that she should be compliant with these appt in order to continue with monthly CS meds/opiate contract Kidney stone 02/07/2023 Assessment & Plan (02/07/2023 9:49 AM EDT): Has 5 mm, unchanged from CT scan last month. Unlikely to be cause of abd pain. Epigastric pain 02/07/2023 Assessment & Plan (02/07/2023 10:26 AM EDT): Most likely gastritis versus side effects of opioid Rx Had lengthy discussion with pt about taking that many controlled substances together. R/u H pylori Use sucralfate 1 g TID AC meals + qHS x 1 month FU at next visit Pt will hold pantoprazole and take sucralfate Controlled substance agreement broken 02/07/2023 Assessment & Plan (02/07/2023 3:18 PM EDT): Pt has been on this agreement for a few years and takes tramadol, however she took prescription for oxycodone recently from the emergency room We have discussed in detail about importance of narcotic contract and avoid additional controlled substances prescription from now on. We have done [employer] education re opiate side effects including dizziness, somnolence, constipation, urinary retention, dependence, etc. Patient is aware of the importance of avoiding any activity that requires vigilance while taking these meds including driving. We have discussed re avoiding diversion of medication, including giving pills to relatives. Patient is to keep medications in a safe place and is aware that Rx will not be replaced if lost or stolen. I gave her prescription for 2 wks and will cont monitoring closely to see if current tramadol Rx can continue Pt unable to void urine today. Will call for random urine test in the next few weeks. Acute bilateral low back pain 11/25/2022 Assessment & Plan (01/03/2024 3:39 PM EDT): It may be exacerbated by recent episode of constipation Advised to continue Tylenol and add flexeril x 10d Continue tramadol same dose Advised to come to acupuncture FU with me if sxs do not improve within 6w, or earlier prn. Assessment & Plan (11/25/2022 2:11 PM EDT): See above. Exercise counseling 11/25/2022 Preoperative examination 08/25/2022 Assessment & Plan (08/25/2022 10:24 AM EDT): XXXX Bilateral calcaneal spurs 08/23/2022 Assessment & Plan (06/03/2023 12:58 PM EST): -Follow up with Dr. Tejada -Renew referral to podiatry. Hip pain 08/23/2022 Pain in finger 08/23/2022 Carpal tunnel syndrome 08/23/2022 Assessment & Plan (01/03/2024 3:35 PM EDT): Sp CT release, doing better FU with OT Wear hand brace as needed for pain Tenosynovitis of fingers 08/23/2022 Trigger finger, left little finger 08/23/2022 Primary osteoarthritis of right knee 08/23/2022 Thiamine deficiency 08/23/2022 Class 2 obesity 06/24/2022 Generalized anxiety disorder 06/24/2022 Assessment & Plan (02/20/2024 2:24 PM EDT): Pt discussed with psychotherapist and with me. We discussed breathing exercise and visualization. I told her she can decline to do something if she feels uncomfortable or she can take a break. She will follow up with with psychotherapist later in the day. No change in medications today. Avoid group therapist. Assessment & Plan (08/25/2022 12:03 PM EDT): Continue close fu with MH provider take lorazepam the night before surgery and continue Wellbutrin 150mg and fu with psychiatry KAYLEE (obstructive sleep apnea) 06/24/2022 Assessment & Plan (08/25/2022 12:01 PM EDT): Doing well on CPAP, counseled pt to use CPAP qhs while she is in the hospital as well, she will bring her own CPAP Lumbar radiculopathy 06/24/2022 Assessment & Plan (02/20/2024 4:41 PM EDT): Will rx a new walker with wheels so that she can take break during ambulation (Knee OA) Assessment & Plan (11/25/2022 3:02 PM EDT): Has recurrent pain, likely sp TKR/rehab, mobilization of L-spine during surgery, weight gain and patient missing recent epidural inj due to surgery. Pt has appointment with pain clinic next month Recommended to use heat pads on affected area, I will increase tramadol to BID, she can take Tylenol prn breakthrough pain, max 2g/d. Refill sent today, she is due on Monday as dose has changed from most recent one (see [facility] nurse note). Next refill will be due on 12/26, patient made Aware and agreed with POC. We have done [employer] education re opiate side effects including dizziness, somnolence, constipation, urinary retention, dependance, etc. Patient is aware of the importance of avoiding any activity that requires vigilance while taking these meds including driving. We have discussed re avoiding diversion of medication, including giving pills to relatives. Patient is to keep medications in a safe place and is aware that rx will not be replaced if lost or stolen. FU with [facility] nurse as scheduled Assessment & Plan (06/24/2022 1:08 PM EST): Continue weight reduction, tylenol 1000mg BID and 500mg tramadol qhs FU with orthopedics recommended use of cane for ambulation counseled regarding compliance with [facility] appointments, utox ordered today was negative pharmaco education regarding opiate use including proper storage, prohibited sharing medications with others, avoid alcohol or other recreational substances counseled to FU closely with [facility] provider. Type 2 diabetes mellitus without complication Assessment & Plan (04/25/2024 2:11 PM EST): Controlled. A1c is at goal. No medications. Counseled re more frequent low calorie/carb meals. Check fgstk x 1 daily Encouraged physical activity as tolerated. FU in 6 months. Assessment & Plan (02/22/2024 3:30 PM EDT): Controlled. A1c is at goal. Current medication is Trulicity but I will change to Semaglutide 0.25mg/w, has better profile for weight reduction. Counseled re more frequent low calorie/carb meals. Check fgstk 2x daily Encouraged physical activity as tolerated. Discussed re weight reduction options including exercise, decrease soda and sugary beverage consumption, increase protein intake with meals (at least 1 portion of protein with each meal) to assist with satiety, increase dietary fiber Recommended at least 150 min/week of moderate intensity exercise. FU in 2 months. Assessment & Plan (01/03/2024 3:38 PM EDT): Controlled. A1c is at goal. Continue on Trulicity only Counseled re more frequent low calorie/carb meals. Check fgstk 1x daily Encouraged physical activity as tolerated. FU in 4 months. Assessment & Plan (09/21/2023 11:25 AM EDT): Controlled, See previous note Assessment & Plan (07/19/2023 12:18 PM EDT): Controlled. A1c is at goal. Continue on Trulicity Counseled re more frequent low calorie/carb meals. Check fgstk once daily Encouraged physical activity as tolerated. FU in x months. Assessment & Plan (05/31/2023 2:37 PM EST): Controlled. A1c is at goal. Continue on Trulicity Counseled re more frequent low calorie/carb meals. Check fgstk 2x daily Encouraged physical activity as tolerated. FU in 2-3 months. Assessment & Plan (01/26/2023 2:27 PM EDT): A1c at goal Continue Trulicity 0.75 mg /wk FU in 3-4 months Assessment & Plan (11/25/2022 2:55 PM EDT): A1C was at goal three months ago and her bs continue to be controlled. However, she does not seem to be tolerating Metformin now, will DC metformin and start trulicity that will help with weight loss as well. FU with me in 2 months Assessment & Plan (08/25/2022 12:03 PM EDT): Controlled, a1c is at goal continue metfomrin daily and she will hold it on the day of the surgery. Assessment & Plan (06/24/2022 1:07 PM EST): A1C is at goal Continue Metformin 500mg once per day. Counseled re more frequent low calorie/carb meals. Check fgstk once daily Encouraged physical activity as tolerated. FU at next visit. Dysphonia 06/24/2022 Assessment & Plan (12/01/2022 7:13 PM EDT): Reports dysphonia for the past 5 months -referred again today to ENT Cobalamin deficiency 06/24/2022 Mild recurrent major depression 06/24/2022 Primary osteoarthritis of left knee 06/24/2022 Assessment & Plan (01/26/2023 2:32 PM EDT): S/p L TKR, completed PT and is recovering well Needs to cont ambulation with a cane PRN, prevention of falls discussed with pt cont tylenol and tramadol PRN Needs home car for ADLs that require lifting and bending over. She wears diapers at night and for occasional incontinence. I don't think she needs overnight assistance, PC can leave medications and dinner ready. Assessment & Plan (11/25/2022 2:58 PM EDT): Sp left TKR, fu by orthopedics. FU with orthopedics Continue home PT exercises, ambulation with cane and weight reduction recommended. Assessment & Plan (08/25/2022 12:02 PM EDT): Failed steroid injections, needs assisted ambulatory device Pt ready for left knee arthroscopy can take tylenol and tramdol PRN. Will hold diclofenac 4 days prior to surgery. Order x-rays of surgerys of both knees s/p fall and will FU PRN Assessment & Plan (06/24/2022 1:08 PM EST): See above radiculopathy. Pt will FU with orthopedics and consider knee arthroplasty. History of total hysterectomy 08/22/2018 History of total knee arthroplasty 08/17/2016 Moderate persistent asthma with exacerbation Assessment & Plan (04/01/2024 1:59 PM EST): Exacerbated by viral URI Use albuterol nebs or inh tid x 7d or up to 6x/d prn SOB/cough Assessment & Plan (07/19/2023 12:37 PM EDT): - significantly improving on PRD taper - complete PRD taper + advair 250 BID - f/u as recommended Morbid obesity 04/30/2015 Essential hypertension 04/30/2015 Assessment & Plan (03/13/2024 2:45 PM EST): Slightly high today, probably due to acute condition. No change in meds. FU BP at next appt unless BP continues to be high after resolution of today's vertigo, she will call back prn. Assessment & Plan (07/19/2023 12:34 PM EDT): - Repeated BP is normal - BP at end of visit 120/85 - No change in medications - F/u as recommended Assessment & Plan (05/31/2023 2:39 PM EST): Controlled. Compliant w/meds Continue Lasix same dose Counseled re low salt diet/increase moderate physical activity. Check home BP BIW and prn CP/NEWELL/MORENO Non smoking patient. Assessment & Plan (01/26/2023 2:30 PM EDT): Controlled. Compliant w/meds BP at goal Continue lasix 40 mg Counseled re low salt diet/increase moderate physical activity. Check home BP BIW and prn CP/NEWELL/MORENO Non smoking patient. FU in 6 months Assessment & Plan (11/25/2022 2:10 PM EDT): Fu with orthopedics Tramadol BID for the next 1-2 months and then will go back to once per day continue home PT exercises recommended weight reduction Assessment & Plan (08/25/2022 12:04 PM EDT): BP is at goal. Continue lasix only. She will hold it on the day of the surgery. FU with me as scheduled Assessment & Plan (06/24/2022 1:09 PM EST): BP is controlled. Continue off medications. Counseled re low salt diet/increase moderate physical activity. Check home BP BIW and prn CP/NEWELL/MORENO Non smoking patient. Allergic rhinitis 04/30/2015 Chronic back pain 04/30/2015 Depressive disorder 04/30/2015 Gastroesophageal reflux disease without esophagi tis 04/30/2015 Assessment & Plan (02/20/2024 2:30 PM EDT): Pt continue on Pantoprazole and refer to GI. Hypomagnesemia 04/30/2015 Mixed hyperlipidemia 04/30/2015 Primary osteoarthritis involving multiple joints 04/30/2015 Shoulder pain 04/30/2015 Resolved Problems Problem Noted Date Diagnosed Date Resolved Date Upper respiratory infection 12/01/2022 03/12/2024 Assessment & Plan (12/01/2022 7:16 PM EDT): Pt with reported sore throat with no other symptoms Erythema in oropharynx otherwise normal exam VS normal Here flu,covid,strep rapid test are neg Likely viral syndrome -hydration -supportive tx w cepacol, (tylenol , NSAIDs prn )-has at home -alarm signs and symptoms discussed Encounters Date Type Department Care Team Description 06/14/2024 Refill [facility] [address] [place] [address] Leelee Yanes MD Type 2 diabetes mellitus without complication, without long-term current use of insulin ([facility]) 06/10/2024 Refill [facility] [address] [place] [address] Leelee Yanes MD Lumbar radiculopathy; Primary osteoarthritis of left knee; Acute bilateral low back pain, unspecified whether sciatica present 06/10/2024 Refill [facility] [address] [place] [address] Leelee Yanes MD Lumbar radiculopathy; Primary osteoarthritis of left knee; Acute bilateral low back pain, unspecified whether sciatica present 06/06/2024 Refill [facility] [address] [place] [address] Leelee Yanes MD Lumbar radiculopathy; Primary osteoarthritis of left knee; Acute bilateral low back pain, unspecified whether sciatica present 06/05/2024 11:30 AM EST Clinical Support [facility] [address] [place] [address] Yoana Perry RN Chronic back pain, unspecified back location, unspecified back pain laterality (Primary Dx) 06/05/2024 Refill [facility] [address] [place] [address] Yoana Perry RN Chronic back pain, unspecified back location, unspecified back pain laterality (Primary Dx) 06/05/2024 Travel 05/25/2024 Refill [facility] [address] [place] [address] [phone] Leelee Yanes MD 05/24/2024 Telephone [facility] [address] [place] [phone] Leelee Yanes MD Med Refill 05/22/2024 Refill [facility] [address] [place] [phone] Leelee Yanes MD 05/22/2024 Refill [facility] [address] [place] [phone] Leelee Yanes MD Type 2 diabetes mellitus without complication, without long-term current use of insulin ([facility]) 05/16/2024 Refill [facility] [address] [place] [address] Leelee Yanes MD Lumbar radiculopathy; Primary osteoarthritis of left knee; Acute bilateral low back pain, unspecified whether sciatica present 05/03/2024 Orders Only [facility] [address] [place] [phone] Leelee Yanes MD 04/29/2024 11:15 AM EST Office Visit [facility] [address] [place] [phone] Eleni Garcia, ART Subconjunctival hemorrhage of left eye (Primary Dx) 04/29/2024 10:20 AM EST Office Visit [facility] [address] [place] [phone] Charles Groves MD Subconjunctival hemorrhage of left eye (Primary Dx); Abrasion of left cornea, initial encounter 04/29/2024 Travel 04/29/2024 Telephone [facility] [address] [place] [phone] Leelee Yanes MD Nurse Triage 04/25/2024 12:00 PM EST Office Visit [address] [address] Leelee Yanes MD Type 2 diabetes mellitus without complication, without long-term current use of insulin ([facility]); Body aches 04/25/2024 Travel 04/22/2024 1:00 PM EST Office Visit [facility] [address] [address] Leelee Yanes MD Viral gastroenteritis (Primary Dx) 04/22/[address] [address] Yoana Perry RN Pt cancelled [employer] Renewal appt today 04/22/[address] [address] Yoana Perry RN Recommend [employer] Tier 3 04/17/2024 Refill [facility] [address] [place] [address] Leelee Yanes MD Lumbar radiculopathy; Primary osteoarthritis of left knee; Acute bilateral low back pain, unspecified whether sciatica present 04/15/2024 Patient Outreach [address] [address] Leelee Yanes MD Pre-visit Planning (SDOH screening completed on 09/21/2023) 04/09/[address] Durable Medical Equipment 04/01/2024 3:00 PM EST Office Visit [facility] [address] [address] Leelee Yanes MD Subacute cough (Primary Dx); Subacute maxillary sinusitis; Moderate persistent asthma with exacerbation; Seasonal allergies 04/01/[address] [address] Leelee Yanes MD Nurse Triage 03/27/[address] [address] Darcy Rose RN NTTS F/U 03/26/[address] [phone] Leelee Yanes MD Nurse Triage 03/24/2024 Refill [facility] [address] [place] [address] Leelee Yanes MD Seasonal allergies 03/23/2024 Refill [facility] [address] [place] [address] Leelee Yanes MD Moderate persistent asthma without complication 03/22/2024 Telephone [facility] [address] [place] [address] Leelee Yanes MD Durable Medical Equipment 03/21/2024 Telephone [facility] [address] [place], [place] [phone] Leelee Yanes MD Medication Question from Last 3 Months Immunizations Name Administration Dates Next Due Hep B, Adolescent or Pediatric 04/02/2001,2000,03/07/2000 Influenza injectable quadriv alent IIV4 with preservative 02/15/2018,06/16/2017,01/21/2015 Influenza injectable quadriv alent preservative free 01/26/2023,05/10/2021,01/27/2020,02/20,05/10/2016 Influenza, IIV3, injectable 02/25/2014, 9 Influenza, Split (incl. destin fied surface antigen) 03/01/2012 Pneumococcal Conjugate PCV 20 01/26/2023 Pneumococcal Polysaccharide PPSV23 05/15/2006 TD (adult), 2 Lf tetanus tox oid, preservative free, adsorbed 11/11/2005 Tdap 07/06/2012 Zoster, Recombinant 06/22/2021 Family History Medical History Relation Name Comments Diabetes Maternal Grandmother Hypertension Maternal Grandmother Uterine cancer Maternal Grandmother Cirrhosis Mother Diabetes Mother Hypertension Mother Kidney disease Mother Relation Name Status Comments Maternal Grandmother Mother Social History Tobacco Use Types Packs/Day Years Used Date Smoking Tobacco: Never Smokeless Tobacco: Never Tobacco Cessation:Counseling Given: Not Answered Alcohol Use Standard Drinks/Week Comments Never 0 [...] not to disclose 2021 10:14 AM EDT Last Filed Vital Signs Vital Sign Reading Time Taken Comments Blood Pressure 147/87 04/29/2024 9:50 AM EST Pulse 93 04/29/2024 9:50 AM EST Temperature 36.4 ??C (97.6 ??F) 04/29/2024 9:50 AM ES T Respiratory Rate 20 04/29/2024 9:50 AM EST Oxygen Saturation 98% 04/29/2024 9:50 AM EST Inhaled Oxygen Concentration - - Weight 96.4 kg (212 lb 9.6 oz) 04/29/2024 9:50 A M EST Height 154.9 cm (5' 1 ) 04/29/2024 9:50 AM EST Body Mass Index 40.17 04/29/2024 9:50 AM EST Plan of Treatment Upcoming Encounters Date Type Department Care Team (Late st Contact Info) Description 10/03/2024 11:30 AM EDT Clinical Support [address] [address] Yoana Perry, RN Health Maintenance Due Date Last Done Comments CT Colonography 1965 Colonoscopy 1965 Colorectal Cancer Screening 1965 FIT DNA/Cologuard 1965 FIT 1965 FOBT 1965 HIV Screening 1965 Sigmoidoscopy 1965 Hepatitis C Screening 09/26/1981 Pap Smear 09/26/1984 Cervical Cancer Screening 09/26/1993 HPV/Cotest 09/26/1993 Zoster Vaccines (2 of 2) 08/17/2021 06/22/2021 DTaP/Tdap/Td Vaccines (2 - Td or Tdap) 07/06/2022 07/06/2012, 11/11/2005 RSV Patients and Patients Aged 60 years or older (1 - Risk 60-74 years 1-dose series) 2023 Depression Monitoring (PHQ-9) 11/29/2023 05/31/2023, 05/31/2023 COVID-19 Vaccine ( season) 2023 02/16/2021, 08/03/2020, 07/13/2020 Influenza Vaccine (#1) 2023 3, 05/10/2021, 01/27/2020, Additional history exists Diabetes: Urine Protein Screening 05/18/2024 05/18/2023 Lipid Panel 05/18/2024 05/18/2023, 0908/2020, 06/25/2020, Additional history exists Depression Screening 05/31/2024 05/31/2023, 05/31/19 24 Diabetes: Hemoglobin A1C 08/20/2024 024, 07/19/2023, 01/26/2023, Additional history exists Alcohol/Substance Use Screening 09/20/2024 09/21/2023 SDOH Screening 09/20/2024 09/21/2023 Diabetes: Foot Exam 02/19/2025 02/20/2024, 02/20/2024, 02/20/2024, Additional history exists Tobacco Screening 04/25/2025 04/25/2024 Mammogram 05/03/2025 05/03/2024, 06/30, 05/29/2023, Additional history exists Eye Exam 04/29/2026 04/29/2024, 04/02, 04/29/2024, Additional history exists Hepatitis B Vaccines Aged Out 04/02/2001, 11/02/2000, 03/07/2000 No longer eligible based on patient's age to complete this topic Pneumococcal Vaccine: 50+ Years Completed 01/26/2023, 05/15/2006 HIB Vaccines Aged Out No longer eligi ble based on patient's age to complete this topic HPV Vaccines Aged Out No longer eligi ble based on patient's age to complete this topic Hepatitis A Vaccines Aged Out No long er eligible based on patient's age to complete this topic IPV Vaccines Aged Out No longer eligi ble based on patient's age to complete this topic Meningococcal Vaccine Aged Out No pb beverley eligible based on patient's age to complete this topic RSV under 20 months Aged Out No longe r eligible based on patient's age to complete this topic Rotavirus Vaccines Aged Out No longer eligible based on patient's age to complete this topic Procedures Procedure Name Priority Date/Time Associated Diagnosis Comments POCT ZACHARY-14 URINE DRUG SCREEN Routine 06/05/2024 11:40 AM EST Chronic back pain, unspecified back location, unspecified back pain laterality BI MAMMOGRAM SCREENING TOMOSYNTHESIS BILATERAL Routine 05/03/2024 10:15 AM EST POCT INFLUENZA B Routine 04/25/2024 12:5 9 PM EST Body aches POCT INFLUENZA A Routine 04/25/2024 12:5 9 PM EST Body aches POCT RAPID COVID ANTIGEN Routine 04/25/2024 12:59 PM EST Body aches POCT GLUCOSE Routine 04/25/2024 12:12 PM EST Type 2 diabetes mellitus without complication, without long-term current use of insulin ([facility]) POCT COVID-19 AG MALLOY ID NOW Routine 04/22/2024 1:58 PM EST Viral gastroenteritis POCT INFLUENZA B (ID NOW RAPID MOLECULAR) Routine 04/22/2024 1:58 PM EST Viral gastroenteritis POCT INFLUENZA A (ID NOW RAPID MOLECULAR) Routine 04/22/2024 1:58 PM EST Viral gastroenteritis POCT INFLUENZA B (ID NOW RAPID MOLECULAR) Routine 04/01/2024 1:44 PM EST Subacute cough POCT INFLUENZA A (ID NOW RAPID MOLECULAR) Routine 04/01/2024 1:44 PM EST Subacute cough POC MALLOY ID NOW STREP A Routine 04/01/2024 1:44 PM EST Subacute cough POCT RAPID COVID ANTIGEN Routine 04/01/2024 1:44 PM EST Subacute cough POCT GLYCATED HEMOGLOBIN, TOTAL Routine 02/20/2024 1:22 PM EDT Type 2 diabetes mellitus without complication, without long-term current use of insulin ([facility]) ALBUMIN, RANDOM URINE W/CREATININE Routine 05/18/2023 8:57 AM EST LIPID PANEL WITH REFLEX TO DIRECT LDL Routine 05/18/2023 8:51 AM EST Essential hypertension from Last 3 Months or Most Recently Relevant to Health Maintenance Results * POCT ZACHARY-14 Urine Drug Screen (06/05/2024 11:40 AM EST) Urine Urine specimen obtained by clean catch procedure / Unknown 06/05/2024 11:40 AM EST Yoana Hogan RN - 06/05/2024 11:40 AM EST UTOX cup Lot#[id number] Exp. 01/23/26 Internal Pass Control Negative for all substances us Leelee Yanes MD POINT OF CARE TEST ENTER /EDIT ORDERABLES Final Result * BI Mammogram Screening Tomosynthesis Bilateral (05/03/2024 10:15 AM EST) Anatomical Region Laterality Modality Breast Bilateral Mammography 05/03/2024 10:1 5 AM EST Narrative 05/12/2024 8:49 AM EST ? [facility] ? [address] ?[place] [address] ? Mammography Report ? Signed with Addenda ? Patient: Ann-Marie Flores ?MR#: [id number] ?? 6 ? : 1965 ?Acct:[id number] ? Age/Sex: 58 / F ?ADM Date: 05/03/24 ? Loc: HO.MAMMO ? Attending Dr: Leelee Yanes MD ? Ordering Physician: Leelee Yanes MD ?Results: 2Be ?? nign Findings ? Date of Service: 05/03/24 ?Follow Up: 1 Year From Orig ?? inal Mammogram ? Procedure(s): MM tomosynthesis screening BI ?? Accession Number(s): [id number] ? cc: Leelee Yanes MD ?ADDENDUM ? ADDENDUM #1 ? ADDENDUM: ?? The current mammogram has been reviewed and remains BI-RADS as follows ? OVERALL ASSESSMENT: ?? BI-RADS 2 - Benign Findings ? RECOMMENDATION: ?? 1 year F/U ? Electronically signed by: ??Tricia German DO ??05/27/2024 03:27 PM EST ?? RP ? Addendum Dictated By: ?Tricia German, DO ? Addendum Signed By: ? <Electronically signed by Tricia German, DO in OV> ? 05/27/ 1527 ?? Addendum Cosigned By: ? DD/ /23/1014 ? TD/TT: 05/03/2407/23/1024 ? EXAMINATION: ?? MM SCREENING DIGITAL BREAST TOMOSYNTHESIS, BILATERAL ? CLINICAL INFORMATION: ? Screening. Asymptomatic. ? COMPARISON: ?? Mammography: Comparison is made with available priors ? TECHNIQUE: ?? Digital breast mammography with tomosynthesis is performed in both the ?? craniocaudal and mediolateral oblique views along with computer-aided ?? detection (CAD). ? FINDINGS: ?? There are scattered areas of fibroglandular density (ACR BI-RADS breast ?? composition Category b). ?? Left marker clip. ?? There are no significant masses, abnormal calcifications, or other ?? abnormalities. ? MM/MM tomosynthesis screening BI ?? IMPRESSION: ?? No mammographic evidence of malignancy. ? ASSESSMENT: ? BI-RADS BI-RADS 2 - Benign Findings ? RECOMMENDATION: ?? Routine annual mammography screening. ? 1 year F/U ? This examination should not preclude the clinical evaluation of a ?? suspicious palpable abnormality. ? This patient's information was entered into a reminder system with a ?? target due date for their next mammogram. ? Electronically signed by: ??Tricia German DO ??05/12/2024 08:47 AM EST ? Dictated By: ?Tricia German DO ? Signed By: ?<Electronically signed by Tricia German, DO in OV> ? 05/12/24 0847 ? DD/ 1015 ? TD/TT: 05/03/24 1025 ? Direct Marketing Coordinator: ? Procedure Note Deepika Cyr - 05/27/2024 [facility] [address] [place], [place] [address] Mammography Report Signed with Addenda Patient: Ann-Marie Flores NMR#: [id number] 6 : 1965Acct:[id number] Age/Sex: 58 / FADM Date: 05/03/24 Loc: HO.MAMMO Attending Dr: Leelee Yanes MD Ordering Physician: Leelee Yanes MDResults: 2Be nign Findings Date of Service: 05/03/24Follow Up: 1 Year From Orig inal Mammogram Procedure(s): MM tomosynthesis screening BI Accession Number(s): [id number] cc: Leelee Yanes MD ADDENDUM ADDENDUM #1 ADDENDUM: The current mammogram has been reviewed and remains BI-RADS as follows OVERALL ASSESSMENT: BI-RADS 2 - Benign Findings RECOMMENDATION: 1 year F/U Electronically signed by: Tricia German DO 05/27/2024 03:27 PM EST Addendum Dictated By: Tricia German DO Addendum Signed By: <Electronically signed by DO Mohan in OV> 05/27/24 1527 Addendum Cosigned By: DD/ /23/1014 TD/TT: 05/03/2407/23/1024 EXAMINATION: MM SCREENING DIGITAL BREAST TOMOSYNTHESIS, BILATERAL CLINICAL INFORMATION: Screening. Asymptomatic. COMPARISON: Mammography: Comparison is made with available priors TECHNIQUE: Digital breast mammography with tomosynthesis is performed in both the craniocaudal and mediolateral oblique views along with computer-aided detection (CAD). FINDINGS: There are scattered areas of fibroglandular density (ACR BI-RADS breast composition Category b). Left marker clip. There are no significant masses, abnormal calcifications, or other abnormalities. MM/MM tomosynthesis screening BI IMPRESSION: No mammographic evidence of malignancy. ASSESSMENT: BI-RADS BI-RADS 2 - Benign Findings RECOMMENDATION: Routine annual mammography screening. 1 year F/U This examination should not preclude the clinical evaluation of a suspicious palpable abnormality. This patient's information was entered into a reminder system with a target due date for their next mammogram. Electronically signed by: Tricia German DO 05/12/2024 08:47 AM EST RP Dictated By: Tricia German DO Signed By: <Electronically signed by Tricia German DO in OV> 05/12/24 0847 DD/ 1015 TD/TT: 05/03/24 1025 Direct Marketing Coordinator: Result [facility] Leelee Yanes MD IMG BI PROCEDURES Edited Result - Final * POCT Rapid Covid-19 BinaxNOW (04/25/2024 12:59 PM EST) Only the most recent of2 resultswithin the time period is included. Pathologist [facility] Rapid COVID Ag Negative QC Media Lot # [id number] Lot# Expiration Date Swab 04/25/2024 12:5 9 PM EST Result [facility] Leelee Yanes MD POINT OF CARE TEST ENTER /EDIT ORDERABLES Final Result * POCT Rapid Influenza B OSOM (04/25/2024 12:59 PM EST) Pathologist [facility] Rapid Influenza B Ag Negative Negative, Indeterminate QC Media Lot # [id number] Lot# Expiration Date , Swab 04/25/2024 12:5 9 PM EST Result [facility] Leelee Yanes MD POINT OF CARE TEST ENTER /EDIT ORDERABLES Final Result * POCT Rapid Influenza A OSOM (04/25/2024 12:59 PM EST) [facility] Rapid Influenza A Ag Negative Negative, Indeterminate QC Media Lot # [id number] Lot# Expiration Date , Swab Nasopharyngeal structure / Unknown 04/25/2024 12:59 PM EST Result [facility] Leelee Yanes MD POINT OF CARE TEST ENTER /EDIT ORDERABLES Final Result * POCT Glucose (04/25/2024 12:12 PM EST) Pathologist [facility] Glucose Blood, POC 151 60 - 200 mg/dL QC Media Lot # [id number] Lot# Expiration Date [id number] Blood Capillary blood specimen / Unknown 04/25/2024 12:12 PM EST Result [facility] Leelee Yanes MD POINT OF CARE TEST ENTER /EDIT ORDERABLES Final Result * Influenza B (ID NOW Rapid Molecular) (04/22/2024 1:58 PM EST) Only the most recent of2 resultswithin the time period is included. Pathologist [facility] Influenza B Negative Negative, Indeterminate [facility] Swab 04/22/2024 1:58 PM EST Result [facility] Leelee Yanes MD POINT OF CARE TEST ENTER /EDIT ORDERABLES Final Result Performing Organization Address [facility] Co de Phone Number [facility] [address] [place] [phone] * Influenza A (ID NOW Rapid Molecular) (04/22/2024 1:58 PM EST) Only the most recent of2 resultswithin the time period is included. Pathologist [facility] Influenza A Negative Negative, Indeterminate [facility] Swab 04/22/2024 1:58 PM EST Result [facility] Leelee Yanes MD POINT OF CARE TEST ENTER /EDIT ORDERABLES Final Result Performing Organization Address City/[facility]/ZIP Co de Phone Number [facility] [address] [place] [phone] * POCT COVID-19 Ag Malloy ID NOW (04/22/2024 1:58 PM EST) Pathologist [facility] Coronavirus Antigen PCR Negative Negative, Indeterminate, None Detected, Invalid, Specimen unsatisfactory for evaluation, Weakly Positive Swab 04/22/2024 1:58 PM EST Result [facility] Leelee Yanes MD POINT OF CARE TEST ENTER /EDIT ORDERABLES Final Result * POCT rapid strep A manually resulted (04/01/2024 1:44 PM EST) Pathologist [facility] Rapid Strep A Screen Negative Negative, None Detected [facility] Swab 04/01/2024 1:44 PM EST Leelee Yanes MD POINT OF CARE TEST ENTER /EDIT ORDERABLES Final Result Performing Organization Address [facility] Co de Phone Number [facility] [address] [place] [phone] * POCT HGB A1C (02/20/2024 1:22 PM EDT) Pathologist [facility] Hemoglobin A1C 5.7 4.0 - 6.0 % QC Media Lot # [id number] Lot# Expiration Date Blood 02/20/2024 1:22 PM EDT Leelee Yanes MD POINT OF CARE TEST ENTER /EDIT ORDERABLES Final Result * Albumin, Random Urine W/Creatinine (05/18/2023 8:57 AM EST) Pathologist [facility] Creatinine, Urine 309.29 mg/dL [facility] Microalbumin Urine 9.0 mg/L [facility] Microalbum Creatinine Ratio Ur 2.9 <30 ug/mg cr [facility] Comment:Albumin/Creatinine R atio Reference Ranges: Normal: < 30 ug/mg creatinine Microalbuminuria: 30 - 300 ug/mg creatinineClinical Albuminuria: > 300 ug/mg creatinine 05/18/2023 8:57 AM EST 05/18/2023 11:33 AM EST Leelee Yanes MD LAB URINE ORDERABLES Fin al Result Performing Organization Address [facility] Co de Phone Number [facility] [address] [place] [phone] * (ABNORMAL) Lipid Panel with Reflex to Direct LDL (05/18/2023 8:51 AM EST) Triglycerides 278(H) <150 mg/dL [facility] Comment:Desirable Triglyceri de: less than 150 mg/dLBorderline High Triglyceride 150-199 mg/dLHigh Triglyceride: 200-499 mg/dLVery High Triglyceride: greater than or equal to 5OO mg/dL Cholesterol 168 <200 mg/dL [facility] Comment:Desirable Cholestero l: less than 200 mg/dLBorderline High Cholesterol: 200-239 mg/dLHigh Cholesterol: greater than 239 mg/dL LDL Cholesterol Calculated 77 <100 mg/dL [facility] Comment:Desirable LDL: less than 100 mg/dLNear Optimal/Above Optimal LDL: 110- 129 mg/dLBorderline High LDL: 130-159 mg/dLHigh LDL: 160-189 mg/dLVery High LDL: greater than or equal to 190 mg/dL HDL Cholesterol 36(L) >40 mg/dL [facility] Comment:Desirable HDL: great er than 40 mg/dL Note: This HDL assay may give artificially low results in patients with liver disease. Blood 05/18/2023 8:51 AM EST 05/18/2023 11:48 AM EST us Leelee Yanes MD LAB BLOOD ORDERABLES Fin al Result [facility] [address] [place] [address] [phone] from Last 3 Months or Most Recently Relevant to Health Maintenance Insurance [facility] C3 Care Teams Mirror Specialist Relationship Specialty Start Date End Date Leelee Yanes MD [address] [place] [phone] PCP - General Family Medicine 06/11/20
--- OUTSIDE RECORDS SUMMARY | 2024-06-18 11:42 | XMS_ITS | Encounter Summary ---
Author Organization [employer] Address [address] [facility] [address] [place] [address] Care Team Providers Care Systems Admin Name Role Phone Leelee Yanes MD Primary Care Provider + Reason for Visit * Reason Comments Med Refill Encounter Details Date Type Department Care Team (Late st Contact Info) Description 06/06/2024 Refill [facility] [address] [place], [place] [phone] Leelee Yanes MD [address] [place] [address] Lumbar radiculopathy; Primary osteoarthritis of left knee; [...] Description 10/03/2024 11:30 AM EDT Clinical Support [facility] [address] [place] [address] Yoana Perry RN documented as of this encounter Visit Diagnoses Diagnosis Lumbar radiculopathy Thoracic or lumbosacral neuritis or radiculitis, unspecified Primary osteoarthritis of left knee Acute bilateral low back pain, unspecified whether sciatica present documented in this encounter Additional Health Concerns Assessment Noted Time PHQ-9 Depression Total Score: 16 024 9:59 AM EST documented as of this encounter Care Teams Systems Admin Relationship Specialty Start Date End Date Leelee Yanes MD [address] [place] [address] PCP - General Family Medicine 06/11/20 documented as of this encounter
--- OUTSIDE RECORDS SUMMARY | 2024-06-18 11:42 | XMS_ITS | Encounter Summary ---
Author Organization [employer] Address [address] [facility] [address] [place] [address] Care Team Providers Care Bolt Header Name Role Phone Leelee Yanes MD Primary Care Provider + Reason for Visit * Reason Comments Med Refill Encounter Details Date Type Department Care Team ([facility] st Contact Info) Description 05/25/2024 Refill [facility] [address] [place] [phone] Leelee Yanes MD [address] [place] [phone] Social History Tobacco Use Types Packs/Day Years [...] Description 10/03/2024 11:30 AM EDT Clinical Support [facility] [address] [place] [address] Yoana Perry, RN documented as of this encounter Visit Diagnoses Not on filedocumented in this encounter Additional Health Concerns Assessment Noted Time PHQ-9 Depression Total Score: 16 024 9:59 AM EST documented as of this encounter Care Teams Bolt Header Relationship Specialty Start Date End Date Leelee Yanes MD [address] [place] [address] PCP - General Family Medicine 06/11/20 documented as of this encounter
--- OUTSIDE RECORDS SUMMARY | 2024-06-18 11:42 | XMS_ITS | Encounter Summary ---
Author Organization [employer] Address [address] [place] [address] 7t [place] [address] Care Team Providers Care Annual Giving Officer Name Role Phone Leelee Yanes MD Primary Care Provider + Reason for Visit * Reason Comments Med Refill Encounter Details Date Type Department Care Team (Late st Contact Info) Description 06/05/2023 Refill [facility] [address] [place] [address] Leelee Yanes MD [address] [place] [address] Lumbar radiculopathy; Primary osteoarthritis of left knee; [...] Description 10/03/2024 11:30 AM EDT Clinical Support [facility] [address] [place] [address] Yoana Perry RN documented as of this encounter Visit Diagnoses Diagnosis Lumbar radiculopathy Thoracic or lumbosacral neuritis or radiculitis, unspecified Primary osteoarthritis of left knee Acute bilateral low back pain, unspecified whether sciatica present documented in this encounter Additional Health Concerns Assessment Noted Time PHQ-9 Depression Total Score: 16 024 9:59 AM EST documented as of this encounter Care Teams Annual Giving Officer Relationship Specialty Start Date End Date Leelee Yanes MD [address] [place] [address] PCP - General Family Medicine 06/11/20 documented as of this encounter
--- OUTSIDE RECORDS SUMMARY | 2024-06-18 11:43 | XMS_ITS | Encounter Summary ---
Author Organization [employer] Address [address] [place] [address] 7t [place] [address] Care Team Providers Care Board Catcher Name Role Phone Leelee Yanes MD Primary Care Provider + Reason for Visit * Reason Onset Date Comments Nurse Triage 03/26/2024 Encounter Details Date Type Department Care Team ([facility] st Contact Info) Description 03/26/2024 Telephone [facility] [address] [place], [place] [phone] Leelee Yanes MD [address] [place] [address] Nurse Triage Social History Tobacco Use Types Packs/Day Years [...] encounter Miscellaneous Notes * Telephone Encounter - Jackie Dasilva RN - 03/26/2024 4:55 PM EST Triage call [place] [facility] [place] [id number] , Prateek, Pt didn't answer. Left voice message to call [facility] [phone] * Telephone Encounter - Nader Hernandez - 03/26/2024 4:46 PM EST Symptom: Dizziness Outcome: Talk to a nurse or provider within 15 minutes Reason: Trouble walking The caller accepted this outcome. Micronesian Speaking documented in this encounter Plan of Treatment Upcoming Encounters Date Type Department Care Team (Late st Contact Info) Description 10/03/2024 11:30 AM EDT Clinical Support [facility] [address] [place] [phone] Yoana Perry RN documented as of this encounter Visit Diagnoses Not on filedocumented in this encounter Additional Health Concerns Assessment Noted Time PHQ-9 Depression Total Score: 16 024 9:59 AM EST documented as of this encounter Care Teams Board Catcher Relationship Specialty Start Date End Date Leelee Yanes MD [address] [place] [address] PCP - General Family Medicine 06/11/20 documented as of this encounter
--- OUTSIDE RECORDS SUMMARY | 2024-06-18 11:43 | XMS_ITS | Encounter Summary ---
Author Organization [employer] Address [address] [place] [address] 7t [place] [address] Care Team Providers Care Photo Studio Assistant Name Role Phone Leelee Yanes MD Primary Care Provider + Reason for Visit * Reason Comments Med Refill Encounter Details Date Type Department Care Team (Late st Contact Info) Description 03/07/2023 Refill [facility] [address] [place] [address] Yulia Perez MD 230 [place], [place] [phone] Lumbar radiculopathy; Primary osteoarthritis of left knee; Acute bilateral low back pain, unspecified whether sciatica present Social History Tobacco Use Types Packs/Day Years Used Date Smoking Tobacco: Never Smokeless Tobacco: Never Alcohol Use Standard Drinks/Week Comments Never 0 (1 standard drink = 0.6 oz pur e alcohol) Depression Answer Date Recorded Patient Health Questionnaire-9 Score 14 08/25/2022 Housing Stability Answer Date Recorded What is [...] Answer Date Recorded Patient Health Questionnaire-2 Score 2 08/25/2022 Comments Unknown Sex and Gender Information Value [...] Description 10/03/2024 11:30 AM EDT Clinical Support [facility] [address] [place] [address] Yoana Perry RN documented as of this encounter Visit Diagnoses Diagnosis Lumbar radiculopathy Thoracic or lumbosacral neuritis or radiculitis, unspecified Primary osteoarthritis of left knee Acute bilateral low back pain, unspecified whether sciatica present documented in this encounter Additional Health Concerns Assessment Noted Time PHQ-9 Depression Total Score: 14 023 9:55 AM EDT documented as of this encounter Care Teams Photo Studio Assistant Relationship Specialty Start Date End Date Leelee Yanes MD [address] [place] [phone] PCP - General Family Medicine 06/11/20 documented as of this encounter
--- OUTSIDE RECORDS SUMMARY | 2024-06-18 11:43 | XMS_ITS | Encounter Summary ---
Author Organization [employer] Address [address] [place] [address] 7t [place] [address] Care Team Providers Care Black Top Roller Name Role Phone Leelee Yanes MD Primary Care Provider + Reason for Visit * Reason Onset Date Comments Durable Medical Equipment 09/28/2022 Encounter Details Date Type Department Care Team ([facility] st Contact Info) Description 09/28/2022 Telephone [facility] [address] [place], [place] [phone] Leelee Yanes MD [address] [place], [place] [phone] Durable Medical Equipment Social History Tobacco Use Types Packs/Day Years Used Date Smoking Tobacco: Never Smokeless Tobacco: Never Alcohol Use Standard Drinks/Week Comments Never 0 (1 standard drink = 0.6 oz pur e alcohol) Depression Answer Date Recorded Patient Health Questionnaire-9 Score 14 08/25/2022 Depression Answer Date Recorded Patient Health Questionnaire-2 [...] suspected to have Coronavirus/COVID-19? No / Unsure 09/14/2022 10:00 AM EDT documented as of this encounter Miscellaneous Notes * Telephone Encounter - Yoselin Mayorga - 09/29/2022 9:54 AM EDT Patient required a referral number faxed to [facility] to obtain walker sent by surgeon. Referral # obtained and faxed. * Telephone Encounter - Cristobal Beny - 09/28/2022 2:45 PM EDT Tc from pt requesting to have PCP send script for walker to [facility] on [facility]. Please contact pt at [phone] documented in this encounter Plan of Treatment Upcoming Encounters Date Type Department Care Team (Late st Contact Info) Description 10/03/2024 11:30 AM EDT Clinical Support [facility] [address] [place] [phone] Yoana Perry RN documented as of this encounter Visit Diagnoses Not on filedocumented in this encounter Additional Health Concerns Assessment Noted Time PHQ-9 Depression Total Score: 14 023 9:55 AM EDT documented as of this encounter Care Teams Black Top Roller Relationship Specialty Start Date End Date Leelee Yanes MD 230 [place] [address] PCP - General Family Medicine 06/11/20 documented as of this encounter
--- OUTSIDE RECORDS SUMMARY | 2024-06-18 11:43 | XMS_ITS | Encounter Summary ---
Author Organization [employer] Address [address] [facility] 7t [place] [address] Care Team Providers Care Receiving Barn Custodian Name Role Phone Leelee Yanes MD Primary Care Provider + Encounter Details Date Type Department Care Team ([facility] st Contact Info) Description 02/17/2023 Telephone [facility] [address] [place] [address] Leelee Yanes MD [address] [place], [place] [phone] Social History Tobacco Use Types Packs/Day Years Used Date Smoking Tobacco: Never Smokeless Tobacco: Never Alcohol Use Standard Drinks/Week Comments Never 0 (1 standard drink = 0.6 oz pur e alcohol) Depression Answer Date Recorded Patient Health Questionnaire-9 Score 14 08/25/2022 Housing Stability Answer Date Recorded What is your housing situation today? I have kattjose alejandro nuno 02/14/[address] you [...] encounter Miscellaneous Notes * Telephone Encounter - Georgie Smith - 02/17/2023 1:44 PM EDT Tc from parvez with [employer] requesting a call in regards to B[employer] S[employer]ER form. Please contact parvez at [phone] documented in this encounter Plan of Treatment Upcoming Encounters Date Type Department Care Team (Late st Contact Info) Description 10/03/2024 11:30 AM EDT Clinical Support [facility] [address] [place] [address] Yoana Perry, ESTEFANÍA documented as of this encounter Visit Diagnoses Not on filedocumented in this encounter Additional Health Concerns Assessment Noted Time PHQ-9 Depression Total Score: 14 023 9:55 AM EDT documented as of this encounter Care Teams Receiving Barn Custodian Relationship Specialty Start Date End Date Leelee Yanes MD [address] [place] [address] PCP - General Family Medicine 06/11/20 documented as of this encounter
--- OUTSIDE RECORDS SUMMARY | 2024-06-18 11:43 | XMS_ITS | Encounter Summary ---
Author Organization [employer] Address [address] [place] [address] 7t [place] [address] Care Team Providers Care Pickers Material Handlers Name Role Phone Leelee Yanes MD Primary Care Provider + Reason for Visit * Reason Comments Med Refill Encounter Details Date Type Department Care Team (Late st Contact Info) Description 01/18/2023 Refill [facility] [address] [place] [phone] Leelee Yanes MD [address] [place] [phone] Social History Tobacco Use Types Packs/Day Years [...] Description 10/03/2024 11:30 AM EDT Clinical Support [facility] [address] [place] [phone] Yoana Perry RN documented as of this encounter Visit Diagnoses Not on filedocumented in this encounter Additional Health Concerns Assessment Noted Time PHQ-9 Depression Total Score: 14 023 9:55 AM EDT documented as of this encounter Care Teams Pickers Material Handlers Relationship Specialty Start Date End Date Leelee Yanes MD [address] [place] [phone] PCP - General Family Medicine 06/11/20 documented as of this encounter
--- OUTSIDE RECORDS SUMMARY | 2024-06-18 11:43 | XMS_ITS | Encounter Summary ---
Author Organization [employer] Address [address] [place] [address] 7t [place] [address] Care Team Providers Care Vector Control Specialist Name Role Phone Leelee Yanes MD Primary Care Provider + Reason for Visit * Reason Onset Date Comments Schedule [facility] [employer] [facility] Renewal Appt 03/13/2024 Med Refill 03/13/2024 Encounter Details Date Type Department Care Team (Late st Contact Info) Description 03/13/2024 Refill [facility] [address] [place] [address] Leelee Yanes MD [address] [place] [address] Lumbar radiculopathy; Primary osteoarthritis of left knee; [...] encounter Miscellaneous Notes * Telephone Encounter - Leelee Yanes MD - 03/15/2024 2:55 PM EST Already sent, picked up on 03/14 per PDMP * Telephone Encounter - Yoana Perry RN - 03/13/2024 11:49 AM EST TC to patient, translation provided by [place] district medical examiner, pt c/o dizziness, headache andvomiting since yesterday. Scheduled to come to [facility] today for evaluation. [facility] [employer] [facility] Renewal scheduled for 04/22/24 @ 10:30am. * Telephone Encounter - Nettie Smith - 03/13/2024 11:42 AM EST Tc from pt requesting to speak to [facility] [employer] [facility] nurse regarding medication. Contact pt at [phone] (urdu) documented in this encounter Plan of Treatment Upcoming Encounters Date Type Department Care Team (Late st Contact Info) Description 10/03/2024 11:30 AM EDT Clinical Support [facility] [address] [place] [address] Yoana Perry RN documented as of this encounter Visit Diagnoses Diagnosis Lumbar radiculopathy Thoracic or lumbosacral neuritis or radiculitis, unspecified Primary osteoarthritis of left knee Acute bilateral low back pain, unspecified whether sciatica present documented in this encounter Additional Health Concerns Assessment Noted Time PHQ-9 Depression Total Score: 16 024 9:59 AM EST documented as of this encounter Care Teams Vector Control Specialist Relationship Specialty Start Date End Date Leelee Yanes MD [address] [place] [address] PCP - General Family Medicine 06/11/20 documented as of this encounter
--- OUTSIDE RECORDS SUMMARY | 2024-06-18 11:43 | XMS_ITS | Clinical Summary ---
Author Organization [facility] Address [address] [place] [address] Phone Care Team Providers Care State Farm Agent Name Role Phone Leelee Yanes MD Primary Care Provider + [phone] Allergies No known active allergies Medications acetaminophen (TYLENOL) 500 mg tablet Take 1 tablet (500 mg total) by mouth every 8 (eight) hours if needed. 4 Active albuterol 2.5 mg /3 mL (0.083 %) nebulizer solution TAKE 3 ML BY NEBULIZER EVERY 6 HOURS NEEDED FOR COUGH, WHEEZING, OR SHORTNESS OF BREATH 4 Active atorvastatin (LIPITOR) 40 mg tablet TOME 1 TABLETA POR V A ORAL TODOS LOS D 4 Active azelastine (ASTELIN) 137 mcg (0.1 %) nasal spray INHALE 1 SPRAY IN EACH NOSTRIL TWICE DAILY 4 Active blood sugar diagnostic (FreeStyle Lite Strips) test strip USE SEG N LO INDICADO DOS VECES AL D A 4 Active cholecalcifero l (VITAMIN D-3) 25 mcg (1,000 unit) tablet TOME TAYLOR TABLETA TODOS LOS D 4 Active citalopram (CeleXA) 40 mg tablet TOME TAYLOR TABLETA TODOS LOS D EN LA MA LEELEE 4 Active cyclobenzaprin e (FLEXERIL) 10 mg tablet TAKE 1 TABLET BY MOUTH AT BEDTIME FOR 14 DAYS 4 Active docusate sodium (COLACE) 100 mg capsule TAKE 1 CAPSULE BY ORAL ROUTE 1 - 2 TIMES EVERY DAY NEEDED FOR CONSTIPATION 4 Active doxycycline hyclate (VIBRA-TABS) 100 mg tablet TAKE 1 TABLET BY MOUTH TWICE DAILY FOR 7 DAYS. TAKE WITH A FULL GLASS OF WATER AND Do not lie down for 30 minutes after taking 4 Active Trulicity 0.75 mg/0.5 mL pen injector injection INJECT ONE PEN (=0.75MG) SUBCUTANEOUSLY ONCE A WEEK DIRECTED 4 Active EPINEPHrine (EPIPEN) 0.3 mg/0.3 mL injection CARRY ON IMMUNOTHERAPY DAYS. INJECT FOR ANAPHYLAXIS 4 Active Advair Diskus 250-50 mcg/dose diskus inhaler TOME TAYLOR INHALACI N POR V A ORAL DOS VECES AL D A 4 Active fluticasone propionate (FLONASE) 50 mcg/actuation nasal spray SPRAY 2 SPRAYS IN EACH NOSTRIL EVERY MORNING 4 Active furosemide (LASIX) 40 mg tablet TOME 1 TABLETA POR V A ORAL TODOS LOS D 4 Active hydrocortisone (ANUSOL-HC) 2.5 % rectal cream INSERT RECTALLY TWICE DAILY 4 Active ipratropium (ATROVENT) 21 mcg (0.03 %) nasal spray INHALE 1-2 SPRAYS NASALLY NEEDED UP TO 3 TIMES A DAY. 4 Active ketotifen fumarate (ZADITOR) 0.035 % ophthalmic solution PONGA TAYLOR GOTA EN NICOLE AFECTADO DOS VECES AL JOSÉ LUIS 4 Active TRUEplus Lancets 33 gauge misc USE DIRECTED TO TEST BLOOD SUGAR TWICE DAILY 4 Active LORazepam (ATIVAN) 0.5 mg tablet TOME 1 TABLETA POR V A ORAL TODOS LOS D CUANDO SEA NECESARIO 4 Active loratadine (CLARITIN) 10 mg tablet TOME 1 TABLETA POR V A ORAL TODOS LOS D 4 Active magnesium oxide 400 mg magnesium capsule TOME 1 C PSULA POR V A ORAL TODOS LOS D (FOR LOW MAGNESIUM) 4 Active meclizine (ANTIVERT) 25 mg tablet TAKE 1 TABLET BY MOUTH THREE TIMES DAILY IN THE MORNING, AT NOON, AND AT BEDTIME NEEDED FOR DIZZINESS 4 Active methylPREDNISo lone (MEDROL DOSPAK) 4 mg tablet PLEASE SEE ATTACHED FOR DETAILED DIRECTIONS 4 Active montelukast (SINGULAIR) 10 mg tablet TOME TAYLOR TABLETA TODOS LOS D AL ACOSTARSE 4 Active Daily-Royal, with folic acid, 400 mcg tablet TAKE 1 TABLET BY MOUTH WITH FOOD 4 Active nystatin (MYCOSTATIN) 100,000 unit/gram powder USE ON AFFECTED AREA(S) TWICE DAILY DIRECTED 4 Active ondansetron (ZOFRAN) 4 mg tablet TAKE 1 OR 2 TABLETS BY MOUTH THREE TIMES DAILY BEFORE MEALS NEEDED FOR NAUSEA AND VOMITING 4 Active pantoprazole (PROTONIX) 40 mg EC tablet TOME 1 TABLETA POR V A ORAL TODOS LOS D EN LA VALARIE LEELEE 4 Active potassium chloride (KLOR-CON) 10 mEq CR tablet TAKE 1 TABLET BY MOUTH EVERY MORNING FOR 30 DOSES, DO NOT BREAK, CRUSH, DISSOLVE OR CHEW 4 Active predniSONE (DELTASONE) 20 mg tablet TAKE 2 TABLETS DAILY FOR 5 DAYS 4 Active thiamine 100 mg tablet TOME TAYLOR TABLETA TODOS LOS D 4 Active traMADoL (ULTRAM) 50 mg tablet Take 1 tablet (50 mg total) by mouth every 12 (twelve) hours if needed for severe pain. 4 Active zolpidem (AMBIEN) 10 mg tablet TOME 1/2-1 TABLETA POR V A ORAL TODOS LOS D AL ACOSTARSE CUANDO SEA NECESARIO 4 Active Active Problems Problem Noted Date Diagnosed Date Class 2 obesity 05/07/2024 Anxiety 05/07/2024 History of total hysterectomy 05/07/2024 Moderate asthma with acute exacerbation 05/07/19 25 KAYLEE (obstructive sleep apnea) 05/07/2024 Lumbar radiculopathy 05/07/2024 Type 2 diabetes mellitus wit hout complication, without long-term current use of insulin 05/07/2024 Dysphonia 05/07/2024 Primary hypertension 05/07/2024 History of total knee arthroplasty 05/07/2024 Major depressive disorder 05/07/2024 Osteoarthritis of left knee 05/07/2024 Acute rhinitis 05/07/2024 CTS (carpal tunnel syndrome) 05/07/2024 Chronic bilateral low back pain with bilateral s ciatica 05/07/2024 Controlled substance agreement broken 05/07/2024 Epigastric pain 05/07/2024 IFG (impaired fasting glucose) 05/07/2024 Encounters Date Type Department Care Team Description 05/07/2024 11:00 AM EST Consult Orthopedic Surgery [facility] [address] [phone] Sudeep De La Vega DPM Controlled type 2 diabetes with neuropathy (CMS/HCC) (Primary Dx); Arthritis of both feet; Hammertoes of both feet; Dermatophytosis, nail from Last 3 Months Social History Tobacco Use Types Packs/Day Years Used Date Smoking Tobacco: Never Assessed Comments Unknown Sex and Gender Information Value Date Recorded Sex Assigned at Not on file Legal Sex Female 2:16 AM EST Gender Identity Not on file Sexual Orientation Not on file Plan of Treatment Upcoming Encounters Date Type Department Care Team (Late st Contact Info) Description 07/09/2024 1:00 PM EDT Office Visit Orthopedic Surgery [facility] [address] [phone] Sudeep De La Vega DPM [address] [address] Health Maintenance Due Date Last Done Comments Breast Cancer Screening 1965 Diabetes: Annual GFR (Glomerular Filtration Rate) 1965 Diabetes: Annual Foot Exam 09/26/1973 Diabetes: Annual Retina Eye Exam 09/26/1973 Cervical Cancer Screening: Pap Smear 09/26/1984 Zoster Vaccines (2 of 2) 08/17/2021 06/22/2021 DTaP,Tdap,and Td Vaccines (3 - Td or Tdap) 07/06/2022 07/06/2012, 11/11/2005 RSV Immunization Patients 60+ Years Old (1 - Risk 60-74 years 1-dose series) 2023 COVID-19 Vaccine (4 - season) 2023 02/16/2021, 08/03/2020, 07/13/2020 Influenza Vaccine (#1) 2023 3, 05/10/2021, 01/27/2020, Additional history exists Cholesterol Screening (Lipid Panel) 03/04/2024 Colorectal Cancer Screening: Colonoscopy 03/04/2024 HIV Screening 03/04/2024 Hepatitis C Screening 03/04/2024 Social Influencers of Health Screening 03/04/2024 Diabetes: Annual Urine Albumin-Creatinine Ratio (uACR) 05/07/2024 Hypertension/CHF/CAD Annual BMP Blood Test 05/07/2024 Depression Screening 05/31/2024 05/31/2023 Diabetes: Blood Sugar Control Test (HGBA1C) 08/20/2024 02/20/2024 Hepatitis B Vaccines Aged Out 04/02/2001, 11/02/2000, 03/07/2000 No longer eligible based on patient's age to complete this topic Pneumococcal Vaccine: 50+ Years Completed 01/26/2023, 05/15/2006 Pneumococcal Vaccine: Pediatrics (0 to 5 Years) and At-Risk Patients (6 to 64 Years) Completed 01/26/2023, 05/15/2006 HIB Vaccines Aged Out [...] on patient's age to complete this topic MMR Vaccines Aged Out No longer eligi ble based on patient's age to complete this topic Meningococcal ACWY Vaccine Aged Out N o longer eligible based on patient's age to complete this topic Meningococcal B Vacine Aged Out No lo nger eligible based on patient's age to complete this topic RSV Immunization Patients Under 20 months Aged Out No longer eligible based on patient's age to complete this topic Varicella Vaccines Aged Out No longer eligible based on patient's age to complete this topic Insurance MEDICAID - [place] Care Teams State Farm Agent Relationship Specialty Start Date End Date Leelee Yanes MD [address] [place] [phone] PCP - General 06/02/23
--- OUTSIDE RECORDS SUMMARY | 2024-06-18 11:43 | XMS_ITS | Encounter Summary ---
Author Organization [employer] Address [address] [place] [address] 7t [place] [address] Care Team Providers Care Rabbit Dresser Name Role Phone Leelee Yanes MD Primary Care Provider + Reason for Visit * Reason Comments Med Refill Encounter Details Date Type Department Care Team (Late st Contact Info) Description 08/02/2022 Refill [facility]INE [address] [place] [phone] Leelee Yanes MD [address] [place] [phone] Acute bilateral low back pain, unspecified whether [...] suspected to have Coronavirus/COVID-19? No / Unsure 07/29/2022 1:33 PM EDT documented as of this encounter Plan of Treatment Upcoming Encounters Date Type Department Care Team (Late st Contact Info) Description 10/03/2024 11:30 AM EDT Clinical Support [facility]INE [address] [place] [phone] Vicky, Yoana, RN documented as of this encounter Visit Diagnoses Diagnosis Acute bilateral low back pain, unspecified whether sciatica present documented in this encounter Care Teams Rabbit Dresser Relationship Specialty Start Date End Date Leelee Yanes MD [address] [place] [phone] PCP - General Family Medicine 06/11/20 documented as of this encounter
--- OUTSIDE RECORDS SUMMARY | 2024-06-18 11:43 | XMS_ITS | Encounter Summary ---
Author Organization [employer] Address [address] [facility] 7t [place] [address] Care Team Providers Care Ore Puncher Name Role Phone Leelee Yanes MD Primary Care Provider + Reason for Visit * Reason Comments Med Refill Encounter Details Date Type Department Care Team (Late st Contact Info) Description 09/04/2022 Refill [facility] [address] [place] [address] Leelee Yanes MD [address] [place] [address] terminal block assembler current use of diuretic Social History Tobacco Use Types Packs/Day Years [...] suspected to have Coronavirus/COVID-19? No / Unsure 09/07/2022 1:54 PM EDT documented as of this encounter Plan of Treatment Upcoming Encounters Date Type Department Care Team (Late st Contact Info) Description 10/03/2024 11:30 AM EDT Clinical Support [facility] [address] [place] [address] Yoana Perry, ESTEFANÍA documented as of this encounter Visit Diagnoses Diagnosis terminal block assembler current use of diuretic documented in this encounter Additional Health Concerns Assessment Noted Time PHQ-9 Depression Total Score: 14 023 9:55 AM EDT documented as of this encounter Care Teams Ore Puncher Relationship Specialty Start Date End Date Leelee Yanes MD [address] [place] [address] PCP - General Family Medicine 06/11/20 documented as of this encounter
--- OUTSIDE RECORDS SUMMARY | 2024-06-18 11:43 | XMS_ITS | Encounter Summary ---
Author Organization [employer] Address [address] [place] [address] 7t [place] [address] Care Team Providers Care Dust Mill Operator Name Role Phone Leelee Yanes MD Primary Care Provider + Reason for Visit * Reason Comments Med Refill Encounter Details Date Type Department Care Team ([facility] st Contact Info) Description 03/15/2024 Refill [facility] MEDICINE [address] [place] [address] Leelee Yanes MD [address] [place] [address] Type 2 diabetes mellitus without complication, without long-term current use of insulin ([facility]) Social History Tobacco Use Types Packs/Day Years [...] Description 10/03/2024 11:30 AM EDT Clinical Support [facility] MEDICINE [address] [place] [address] Yoana Perry RN documented as of this encounter Visit Diagnoses Diagnosis Type 2 diabetes mellitus without complication, without long-term current use of insulin ([facility]) documented in this encounter Additional Health Concerns Assessment Noted Time PHQ-9 Depression Total Score: 16 024 9:59 AM EST documented as of this encounter Care Teams Dust Mill Operator Relationship Specialty Start Date End Date Leelee Yanes MD [address] [place] [address] PCP - General Family Medicine 06/11/20 documented as of this encounter
--- OUTSIDE RECORDS SUMMARY | 2024-06-18 11:43 | XMS_ITS | Data Portability ---
Author Organization [place] [facility], Allergy Address [address] [place] [phone] Assessment Encounter Date Assessment Date Assessment LastModified [...] Address Organization Details Recorded Time Chronic hoarseness 0982498552307 Active 2023 YIN DE SANTIAGO MD [address] [facility],[address], [address] [facility] 09:20:04 Feeling of lump in throat 509928909 Active 2023 YIN DE SANTIAGO MD 100 [facility] [address], [place], [address], [facility] - [facility] 4 09:20:10 Obstructive sleep apnea syndrome 32258040 Active 2023 YIN DE SANTIAGO MD [address] [address], [place], [address], [facility] - [facility] 4 09:20:14 Moderate persistent asthma 588161549 Active 2023 YIN DE SANTIAGO MD [address] [address], [place], [address], [facility] - [facility] 4 09:20:21 Problem Notes None recorded. Procedures Surgical History Date Name Laterality Status Provider Name and Address Organization Details Recorded Time 4 FOL_Reflux_J MS completed YIN REEVES MD [address] [address], [place], [address], [facility] - [facility] 11/28/2023 09:22:24 Gastric bypass for obesity completed Dustin Francis [place] - [facility] 11/28/2023 09:27:15 Imaging Results None recorded. Procedure [...] MOUTH FOUR TIMES DAILY BEFORE BREAKFAST, LUNCH, cheri, AND AT BEDTIME active Not Available Not [...] Updated DateTime 11/28/2023 154.94 cm 39.9 kg/m2 45151.99 g Dustin Francis [place] - [facility] 11/28/2023 09:01:32 Social History None recorded. Functional Status None recorded. Mental Status None recorded. Family History Nothing Reported. Medical History No medical history recorded. Gynecological HistoryNo gynecological history recorded. Obstetrics History GPAL:G 0 P 0 0 0 0 Past Encounters Encounter ID Performer Location Encounter Start Date Encounter Closed Date Diagnosis/Indication Diagnosis SNOMED-CT Code Diagnosis ICD10 Code Diagnosis Note [id number] YIN ZAVALETA MD [facility] [address] [place] [address] 11/28/2023 08:57:25 11/28/2023 09:25:04 Chronic hoarseness 6879145392 105 R49.0 Feeling of lump in throat 182739527 R09.89 Obstructiv e sleep apnea syndrome 16680545 G47.33 Moderate p ersistent asthma 481099825 J45.40 Health Concerns Section Related Observation LastModified by Organization Detai ls LastModified Time None Recorded Concern Status LastModified by Organization Details LastModified Time None Recorded Advance Directives Directive None Recorded Payers Encounter Date Sequence Insurance Name Policy Number Policy Angel Covered Member ID Angel Member ID Guarantor Name 11/28/2023 1 [place] [facility] Ann-Marie Flores [id number] Ann-Marie Flores Notes Date Note Type Note [...] years.Waiting for colonoscopy YIN REEVES MD [address] [facility],[address] [address], [place], [address], [place] [facility] 11/28/2023 09:23:20 OBGyn Episode No OBEpisode recorded.
--- OUTSIDE RECORDS SUMMARY | 2024-06-18 11:43 | XMS_ITS | Encounter Summary ---
Author Organization [employer] Address [address] [facility] 7t [place] [address] Care Team Providers Care Poultry Slaughterer Name Role Phone Leelee Yanes MD Primary Care Provider + Encounter Details Date Type Department Care Team ([facility] Contact Info) Description 01/23/2023 Orders Only [facility] MED & PEDS [address] [place], [place] [phone] Ghada Isidro LPN Social History Tobacco Use [...] Description 10/03/2024 11:30 AM EDT Clinical Support [facility] MEDICINE [address] [place] [address] Yoana Perry RN documented as of this encounter Visit Diagnoses Not on filedocumented in this encounter Additional Health Concerns Assessment Noted Time PHQ-9 Depression Total Score: 14 023 9:55 AM EDT documented as of this encounter Care Teams Poultry Slaughterer Relationship Specialty Start Date End Date Leelee Yanes MD [address] [place] [address] PCP - General Family Medicine 06/11/20 documented as of this encounter
--- OUTSIDE RECORDS SUMMARY | 2024-06-18 11:43 | XMS_ITS | Encounter Summary ---
Author Organization [employer] Address [address] [facility] 7t [place] [address] Care Team Providers Care Felt Machine Mechanic Name Role Phone Leelee Yanes MD Primary Care Provider + Encounter Details Date Type Department Care Team ([facility] Contact Info) Description 07/19/2022 Orders Only [facility] CH[facility] MED & PEDS [address] [place], [place] [phone] Marbella Munoz LPN Social History Tobacco Use [...] suspected to have Coronavirus/COVID-19? No / Unsure 07/21/2022 1:15 PM EDT documented as of this encounter Plan of Treatment Upcoming Encounters Date Type Department Care Team (Late st Contact Info) Description 10/03/2024 11:30 AM EDT Clinical Support [facility] MEDICINE [address] [place] [address] Yoana Perry RN documented as of this encounter Visit Diagnoses Not on filedocumented in this encounter Care Teams Felt Machine Mechanic Relationship Specialty Start Date End Date Leelee Yanes MD [address] [place] [address] PCP - General Family Medicine 06/11/20 documented as of this encounter
--- OUTSIDE RECORDS SUMMARY | 2024-06-18 11:43 | XMS_ITS | Encounter Summary ---
Author Organization [employer] Address [address] [place] [address] 7t [place] [address] Care Team Providers Care Makeup Sales Consultant Name Role Phone Leelee Yanes MD Primary Care Provider + Reason for Visit * Reason Comments FIGURE CLERK Renewal FIGURE CLERK Renewal Encounter Details Date Type Department Care Team (Latest Contact Info) Description 06/05/2024 11:30 AM EST Clinical Support [facility] MEDICINE [address] [place] [phone] Yoana Perry RN Chronic back pain, unspecified [...] AM EDT documented as of this encounter Progress Notes * Yoana Perry RN - 06/05/2024 11:30 AM EST S: Pt here for FIGURE CLERK Renewal Visit. Prescribed Tramadol 50mg Q12hr PRN. States she has been taking asprescribed, last Tramadol was taken this morning. Patient is also prescribed Lorazepam 0.5mg BID PRN from an outside source. Continues to deny smoking cigarettes, ETOH use and Illicit drug use. She started using a CBD cream that her family purchased for her from a dispensary. Denies having a medical marijuana card. Currently rates her pain an 8 and states medication is 50% effective at alleviating pain. Current pain site is her lower back, neck, left hip/leg/knee, right leg sciatica, elbows and hands. She uses acetaminophen PRN, CBD cream and Bengay cream, all help a little with her pain. Ptattended chronic pain group 02/20/24 and would prefer to do FIGURE CLERK visits at this time. O: FIGURE CLERK Tier 3. Pt currently prescribed Tramadol 50mg Q12hr PRN. DRUM STENCILER verified today. Rx last filled on 05/16/24. Pill count performed. Pt has 15 pills at this time, 15 at least expected. Medication is not overused by patient. UTOX completed. Negative for all substances: AMP, BAR, BUP, BZO, TAMAR, FTY, MDMA, MET, MOP, MTD, OXY, PCP, TCA, THC. UTOX as expected. BPI updated, see scanned documents from this date. Pain severity score of 9, activity interference score of 5.4. Previous BPI completed 11/06/23 with pain severity score of 6, activity interference score of 8.7. Narcan medication reviewed, howit's administered and when it's used. Pt stated she understood and thinks her narcan has . Will update PCP with BPI scoring and request RX for Narcan. Last PCP visit was 04/25/24. A: FIGURE CLERK Contract Renewal Visit: Chronic Opioid use related to pain. P: FIGURE CLERK contract reviewed and signed, Pt provided copy. Pt to continue taking medication only as prescribed; Next FIGURE CLERK RV appointment scheduled for 10/03/24 @ 11:30a, F/U sooner PRN. Appointment remindergiven. Pt verbalized understanding and agreed to plan. documented in this encounter Plan of Treatment Upcoming Encounters Date Type Department Care Team (Late st Contact Info) Description 10/03/2024 11:30 AM EDT Clinical Support [facility] MEDICINE [address] [place] [phone] Yoana Perry, RN documented as of this encounter Procedures Procedure Name Priority Date/Time Associated Diagnosis Comments POCT ZACHARY-14 URINE DRUG SCREEN Routine 06/05/2024 11:40 AM EST Chronic back pain, unspecified back location, unspecified back pain laterality documented in this encounter Results * POCT ZACHARY-14 Urine Drug Screen (06/05/2024 11:40 AM EST) Urine Urine specimen obtained by clean catch procedure / Unknown 06/05/2024 11:40 AM EST Narrative Yoana Perry, ESTEFANÍA - 06/05/2024 11:40 AM EST UTOX cup Lot#[id number] Exp. 01/23/26 Internal Pass Control Negative for all substances us Leelee Yanes MD POINT OF CARE TEST ENTER /EDIT ORDERABLES Final Result documented in this encounter Visit Diagnoses Diagnosis Chronic back pain, unspecified back location, unspecified back pain laterality- Primary documented in this encounter Additional Health Concerns Assessment Noted Time PHQ-9 Depression Total Score: 16 024 9:59 AM EST documented as of this encounter Care Teams Makeup Sales Consultant Relationship Specialty Start Date End Date Leelee Yanes MD [address] [place] [address] PCP - General Family Medicine 06/11/20 documented as of this encounter
--- OUTSIDE RECORDS SUMMARY | 2024-06-18 11:43 | XMS_ITS | Encounter Summary ---
Author Organization [employer] Address [address] [place] [address] 7[address] [place] [address] Care Team Providers Care Instructional Services Specialist Name Role Phone Leelee Yanes MD Primary Care Provider + Reason for Visit * Reason Comments Med Refill Encounter Details Date Type Department Care Team ([facility] Contact Info) Description 08/04/2022 Refill [facility] MEDICINE [address] [place] [phone] Marbella Carlin DO [address] [place], [place] [phone] Social History Tobacco Use Types Packs/Day Years [...] 10/03/2024 11:30 AM EDT Clinical Support [facility] MEDICINE [address] [place] [phone] Yoana Perry RN documented as of this encounter Visit Diagnoses Not on filedocumented in this encounter Care Teams Instructional Services Specialist Relationship Specialty Start Date End Date Leelee Yanes MD [address] [place] [address] PCP - General Family Medicine 06/11/20 documented as of this encounter
--- OUTSIDE RECORDS SUMMARY | 2024-06-18 11:43 | XMS_ITS | Encounter Summary ---
Author Organization [employer] Address [address] [place] [address] 7t [place] [address] Care Team Providers Care Barrel Bander Name Role Phone Leelee Yanes MD Primary Care Provider + Reason for Visit * Reason Comments Med Refill Encounter Details Date Type Department Care Team (Late Contact Info) Description 01/06/2023 Refill [facility] MEDICINE [address] [place] [phone] Leelee Yanes MD [address] [place] [phone] Lumbar radiculopathy; Primary osteoarthritis of left knee; [...] Description 10/03/2024 11:30 AM EDT Clinical Support [facility] MEDICINE [address] [place] [phone] Vicky, Yoana, RN documented as of this encounter Visit Diagnoses Diagnosis Lumbar radiculopathy Thoracic or lumbosacral neuritis or radiculitis, unspecified Primary osteoarthritis of left knee Acute bilateral low back pain, unspecified whether sciatica present documented in this encounter Additional Health Concerns Assessment Noted Time PHQ-9 Depression Total Score: 14 023 9:55 AM EDT documented as of this encounter Care Teams Barrel Bander Relationship Specialty Start Date End Date Leelee Yanes MD [address] [place] [phone] PCP - General Family Medicine 06/11/20 documented as of this encounter
--- OUTSIDE RECORDS SUMMARY | 2024-06-18 11:43 | XMS_ITS | Encounter Summary ---
Author Organization [employer] Address [address] [place] [address] [address]t [place] [address] Care Team Providers Care Laborer Starch Factory Name Role Phone Leelee Yanes MD Primary Care Provider + Reason for Visit * Reason Comments Med Refill Encounter Details Date Type Department Care Team (Late Contact Info) Description 08/31/2022 Refill [facility] MEDICINE [address] [place] [address] Leelee Yanes MD [address] [place] [address] Acute bilateral low back pain, unspecified whether [...] suspected to have Coronavirus/COVID-19? No / Unsure 08/25/2022 9:40 AM EDT documented as of this encounter Plan of Treatment Upcoming Encounters Date Type Department Care Team (Late st Contact Info) Description 10/03/2024 11:30 AM EDT Clinical Support [facility] MEDICINE [address] [place] [address] Yoana Perry RN documented as of this encounter Visit Diagnoses Diagnosis Acute bilateral low back pain, unspecified whether sciatica present documented in this encounter Additional Health Concerns Assessment Noted Time PHQ-9 Depression Total Score: 14 023 9:55 AM EDT documented as of this encounter Care Teams Laborer Starch Factory Relationship Specialty Start Date End Date Leelee Yanes MD [address] [place] [address] PCP - General Family Medicine 06/11/20 documented as of this encounter
== END 2024-06-18 11:16 | disposition home or self-care (01) ==
PROVIDERS: PCP Internal Medicine; Visit Provider Internal Medicine
DX: E66.01 Morbid (severe) obesity due to excess calories (principal); Z68.41 Body mass index [BMI] 40.0-44.9, adult; G47.33 Obstructive sleep apnea (adult) (pediatric); J30.9 Allergic rhinitis, unspecified; J44.9 Chronic obstructive pulmonary disease, unspecified
CPT/HCPCS: 99214

== ENCOUNTER → 2024-06-18 10:39 | Outpatient (BNVA) | payer MEDICAID, SELFPAY | PROVIDERS: PCP Internal Medicine; Visit Provider Internal Medicine | DX: J44.9 Chronic obstructive pulmonary disease, unspecified (principal); J30.9 Allergic rhinitis, unspecified; G47.33 Obstructive sleep apnea (adult) (pediatric); E66.01 Morbid (severe) obesity due to excess calories; Z68.41 Body mass index [BMI] 40.0-44.9, adult; Z99.89 Dependence on other enabling machines and devices | CPT/HCPCS: 99212 ==

== ENCOUNTER 2024-09-02 15:45 | Emergency (ER) | payer MEDICAID, SELFPAY ==
--- NOTE | ~2024-09-02 | CT_ITS ---
EXAMINATION: CT HEAD WITHOUT CONTRAST CLINICAL INFORMATION: Numbness and tingling. COMPARISON: None available. TECHNIQUE: Contiguous axial imaging was performed from the skull base to vertex without intravenous administration of contrast. This CT examination was performed using dose optimization techniques as appropriate, variously including the following: *Automated exposure control *Adjustment of mA and/or kV according to patient size (this includes techniques or standardized protocols for targeted exams where dose is matched to indication/reason for exam; i.e. extremities or head) *Use of iterative reconstruction technique FINDINGS: There is no evidence of intracranial hemorrhage or extra-axial fluid collection. There is no mass effect, or edema. No CT evidence of acute territorial infarct. Ventricles, sulci, and cisterns are normal in size and configuration for patient age. No hydrocephalus. No midline shift. Negative hyperdense MCA sign. Negative insular ribbon sign. 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 This is developmental. No significant white matter abnormalities. Partial empty sella. Globes and orbital contents image normally. No extracranial soft tissue abnormalities. The paranasal sinuses, mastoid air cells, and tympanic cavities are normally aerated. No suspicious bony abnormalities. There are no acute fractures evident. There are moderate to severe degenerative changes in both TM joints. CT/CT head/brain wo IV con IMPRESSION: 1. No acute intracranial abnormality. 2. Retrocerebellar arachnoid cyst. 3. Moderate to severe degenerative changes in both TM joints. Electronically signed by: Sean Hernandez MD 09/02/2024 04:27 PM EDT
--- NOTE | ~2024-09-02 | XR_ITS ---
EXAMINATION: XR CHEST CLINICAL INFORMATION: chest tightness. Pneumonia? COMPARISON: 06/19/2023. TECHNIQUE: Frontal view of the chest was obtained. FINDINGS: The cardiac, hilar, and mediastinal contours are normal. The lungs are clear bilaterally. No pneumothorax or effusion. No focal osseous or soft tissue abnormality. XR/XR chest 1V IMPRESSION: No active pulmonary disease. Electronically signed by: Sean Hernandez MD 09/02/2024 04:18 PM EDT
[2024-09-02 16:02] VITALS: BP 152/96; PULSE 82; RESP 19; TEMP 36.6; O2SAT 98; BMI 38.9
--- NOTE | 2024-09-02 16:04 | ECG_ITS ---
Test Reason : NUBNESS /TINGLING Blood Pressure : */* mmHG Vent. Rate : 79 BPM Atrial Rate : 79 BPM P-R Int : 150 ms QRS Dur : 88 ms QT Int : 374 ms P-R-T Axes : 46 37 23 degrees QTcB Int : 428 ms Normal sinus rhythm Normal ECG When compared with ECG of 19-Jun-2023 07:50, No significant change was found Referred By: Edgard Gray Electronically Signed By: KETAN RUBALCAVA
--- NOTE | 2024-09-02 16:06 | ED_ITS ---
HPI - General Adult General Chief complaint: General Medical Stated complaint: body tingling ? abnormal labs Time Seen by Provider: 09/02/24 17:11 History of Present Illness HPI narrative: Patient is 58 years old with a history of electrolyte disturbance in the past. The electrolyte disturbance caused her to have tingling. Patient complaining of tingling sensation to the tip of her fingers bilaterally. To her mouth to her neck to her toes bilaterally. Patient denies any fever chills. There is no chest pain is no diaphoresis. She has larger in size she denies any focal weakness denies any shortness of breath denies any changes in voice. From home. Gradual in onset. Has a history of diabetes, COPD, obstructive sleep apnea has a BMI of 39. Positive history of anxiety Related Data Home Medications ?Medication ?Instructions ?Recorded ?Confirmed atorvastatin 40 mg tablet 40 mg PO BEDTIME 02/27/20 03/20/24 epinephrine 0.3 mg/0.3 mL 0.3 mg IM Q10M PRN Anaphylaxis 02/27/20 03/20/24 injection, auto-injector fluticasone propionate 50 1 spray intranasal DAILY 02/27/20 03/20/24 mcg/actuation nasal spray,suspension (Flonase Allergy Relief) furosemide 40 mg tablet 40 mg PO DAILY 02/27/20 03/20/24 loratadine 10 mg capsule 10 mg PO DAILY 02/27/20 03/20/24 lorazepam 0.5 mg tablet 0.5 mg PO BID PRN Anxiety 02/27/20 03/20/24 montelukast 10 mg tablet 10 mg PO BEDTIME 02/27/20 03/20/24 pantoprazole 40 mg tablet,delayed 40 mg PO DAILY 02/27/20 03/20/24 release zolpidem 10 mg tablet 10 mg PO BEDTIME PRN Insomnia 02/27/20 03/20/24 citalopram 40 mg tablet 1 tab PO QAM 11/05/20 03/20/24 hydroxyzine HCl 25 mg tablet 1 tab PO BEDTIME PRN itch 11/05/20 03/20/24 cyanocobalamin (vitamin B-12) 1,000 mcg PO DAILY 08/17/22 03/20/24 1,000 mcg tablet (Vitamin B-12) magnesium oxide 250 mg PO DAILY 08/17/22 03/20/24 multivitamin with folic acid 400 1 tab PO DAILY 08/17/22 03/20/24 mcg tablet (Daily-Royal (with folic acid)) dulaglutide 0.75 mg/0.5 mL mg subcut QWEEK 12/14/22 03/20/24 subcutaneous pen injector (Trulicity) tramadol 50 mg tablet 50 mg PO severe pain 12/14/22 03/20/24 blood sugar diagnostic (FreeStyle #10 ea 03/20/23 03/20/24 Lite Strips) lancets 33 gauge (Easy Touch Twist #100 ea 03/20/23 03/20/24 Lancets) ipratropium bromide 21 mcg (0.03 1 - 2 spray intranasal PRN 06/02/23 03/20/24 %) nasal spray Previous Rx's ?Medication ?Instructions ?Recorded albuterol sulfate 2.5 mg/3 mL 2.5 mg (3 mL) inhalation Q4H PRN 10/30/20 (0.083 %) solution for nebulization shortness of breath or wheezing #75 mL docusate sodium 100 mg capsule 100 mg PO BID 14 days #28 caps 09/22/22 walker #1 ea 09/23/22 celecoxib 200 mg capsule 200 mg PO BID #60 caps 11/17/22 cyclobenzaprine 10 mg tablet 10 mg PO TID PRN muscle spasm #10 01/30/23 tabs cholecalciferol (vitamin D3) 25 25 mcg PO DAILY #90 tabs 05/17/23 mcg (1,000 unit) tablet magnesium oxide 400 mg PO DAILY low magnesium #30 06/19/23 caps thiamine HCl (vitamin B1) 100 mg 100 mg PO DAILY #90 tabs 06/22/23 tablet albuterol sulfate 90 mcg/actuation 1 puff PO Q4-6H PRN for wheezing 08/04/23 aerosol inhaler (Ventolin HFA) #18 ea fluticasone 250 mcg-salmeterol 50 1 inh PO BID #60 ea 05/27/24 mcg/dose blistr powdr for inhalation (Advair Diskus) Allergies Allergy/AdvReac Type Severity Reaction Status Date / Time sulfamethoxazole Allergy Intermediate RASH Verified 09/02/24 16:05 [From Bactrim] Review of Systems 2 Review of Systems: Positive tingling sensation No chest pain or diaphoresis Yes all other systems are reviewed and are negative [facility] Past Medical History Attestation statement: The following information was validated with the patient. Medical History Osteoarthritis of left knee Hypersomnolence Renal calculi Diabetes COVID-19 vaccine administered COPD (chronic obstructive pulmonary disease) Allergic rhinitis KAYLEE on CPAP Obesity (BMI 30-39.9) Obesity Axillary hidradenitis suppurativa GERD (gastroesophageal reflux disease) Asthma Arthritis Hypertension Hyperlipidemia Surgical History S/P total knee arthroplasty (09/20/22) History of carpal tunnel release Hx of knee surgery Hx of cystoscopy History of esophagogastroduodenoscopy (EGD) H/O colonoscopy Hx of total knee replacement History of salpingoophorectomy H/O lithotripsy H/O hemicolectomy H/O tubal ligation Hx of cholecystectomy S/P laparoscopic sleeve gastrectomy Family History Family History Mother No problems noted. Father No problems noted. Son No problems noted. Daughter No problems noted. Son No problems noted. Sister No problems noted. Sister No problems noted. Brother No problems noted. Brother No problems noted. Brother No problems noted. Brother No problems noted. 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 Oriented X3. No acute distress. Eyes: Pupils equal, round and reactive to light. ENT: Pharynx normal. Neck: Normal inspection. Neck supple. No lymph nodes noted. No crepitus CVS: Normal heart rate and rhythm. Pulses normal. Normal S1 and S2 Respiratory: No respiratory distress. Breath sounds normal. No Wheezing. No rales Abdomen: Soft and nontender. No rigidity. No distention. good BS x4 Skin: Skin warm and dry. Normal skin color. Normal skin turgor. Extremities: No lower extremity edema. Neurovascular intact to all extremities. No Lacerations. No Rash Neuro: Oriented X 3. No motor deficit. No sensory deficit. Moving all extermities. No slurred speech NIH Stroke Scale Time: 18:10 Level of Consciousness: Alert Level of Consciousness Questions: Answers both questions correctly Level of Consciousness Commands: Performs both tasks correctly Best Gaze: Normal Visual: No visual loss Facial Palsy: Normal Motor Arm (Right): No drift Motor Arm (Left): No drift Motor Leg (Right): No drift Motor Leg (Left): No drift Limb Ataxia: Absent Sensory: Normal Best Language: No aphasia Dysarthia: Normal Extinction and Inattention: No abnormality Score: 0 Course Course Course Narrative: RME: 58-year-old female presents to ED for numbness of upper extremities head and chest for the past 5 days. Patient states history of low potassium and low magnesium which usually caused her to have numbness/tingling. NIH score is 0. 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 EKG labs head CT scan ordered Medications Administered Discontinued Medications Generic Name Dose Route Start Last Admin Trade Name Freq PRN Reason Stop Dose Admin Diazepam 5 mg 09/02/24 17:59 09/02/24 18:20 Diazepam 10 Mg/2 Ml Cartridge IVPUSH 09/02/24 18:00 5 mg STAT STA Administration Magnesium Sulfate 2 gm in 50 mls @ 150 mls/hr 09/02/24 17:58 09/02/24 18:19 Magnesium Sulfate/H2o IV 09/02/24 18:17 150 mls/hr ONCE ONE Administration Potassium Chloride 40 meq 09/02/24 17:58 09/02/24 18:19 Potassium Chloride Packet 20 Meq Packet PO 09/02/24 17:59 40 meq ONCE ONE Administration Medical Decision Making Medical Decision Making [facility] Narrative: Patient's magnesium is low. Potassium is low. Given 2 g of magnesium. Potassium was also repleted. Symptomatically feels improved. Additional magnesium to be given as patient's magnesium flat 1.6. Will discharge patient home with patient's symptoms feels much improved. Currently in stable condition neurologically intact had a history of the same patient's CT scan of the head was grossly negative for any acute evidence of bleeding. My interpretation patient's chest x-ray is grossly negative. Patient's symptoms not consistent with CVA. Patient's hemoglobin is 12 no evidence of bad anemia. Will discharge patient home close follow-up on an outpatient basis. Differential Diagnosis Differential Diagnoses: The differential diagnosis associated with the presentation includes Electrolyte disturbance, anxiety, stroke Admission/Observation Consideration of admission/observation: Escalation of care including admission/observation considered Lab Data [facility] Lab Attestation statement: I reviewed the patient's lab results. 09/02/24 16:26 09/02/24 19:39 Labs: Lab Results 09/02/24 09/02/24 Range/Units 16:26 19:39 WBC 10.6 (4.8-10.8) X10*3/uL RBC 4.30 (4.20-5.50) X10*6/uL Hgb 12.0 (12.0-16.0) g/dl Hct 35.7 L (37.0-47.0) % MCV 83.0 (80.0-98.0) fL MCH 27.9 (27.0-33.0) pg MCHC 33.6 (31.0-35.0) g/dl RDW 14.7 (11.0-16.0) % Plt Count 309 (160-400) X10*3/uL MPV 10.1 (9.4-12.3) fL Immature Gran % (Auto) 0.4 (0.0-0.4) % Neut % (Auto) 58.3 (45-73) % Lymph % (Auto) 31.2 (20-40) % [place] % (Auto) 8.6 (2-11) % Eos % (Auto) 1.2 (0-4) % Baso % (Auto) 0.3 (0-2) % Lymph # (Auto) 3.3 (1.2-4.9) X10*3/uL [place] # (Auto) 0.9 (0.1-1.2) X10*3/uL Eos # (Auto) 0.1 (0.0-0.4) X10*3/uL Baso # (Auto) 0.0 (0.0-0.2) X10*3/uL Abs Immat Gran (auto) 0.04 H (0.00-0.03) X10*3/uL Absolute Neuts (auto) 6.2 (2.0-8.3) x10*3/uL Absolute Nucleated RBC 0.000 (0.0-0.012) X10*3/uL Nucleated RBC % (auto) 0.0 (0.0-0.2) /100WBC PT 10.8 L (10.9-12.4) SEC INR 0.9 (0.9-1.1) APTT 25.0 L (26.0-36.8) SEC Sodium 144 145 (135-145) mmol/L Potassium 3.0 L D 3.5 (3.3-5.1) mmol/L Chloride 101 101 (96-108) mmol/L Carbon Dioxide 33 H 33 H (22-29) mmol/L Anion Gap 13 15 (12-20) BUN 14 13 (9-16) mg/dL Creatinine 0.85 0.83 (0.5-1.4) mg/dL Estim Creat Clear Calc 73.4 75.1 Estimated GFR > 60 > 60 Random Glucose 96 92 (60-115) mg/dL Calcium 7.6 L D 7.4 L (8.4-10.2) mg/dL Magnesium 0.9 L* 1.6 (1.6-2.6) mg/dL Total Bilirubin 0.3 (0.0-1.0) mg/dL AST 24 (5-31) U/L ALT 33 H (0-31) U/L Alkaline Phosphatase 100 (39-117) U/L Troponin I High Sens 3.3 (<3.5-17.0) ng/L Total Protein 6.8 (6.5-8.0) g/dL Albumin 3.7 (3.5-5.0) g/dL Influenza Type A (PCR) NEGATIVE (Negative) Influenza Type B (PCR) NEGATIVE (Negative) RSV RNA Qual (PCR) NEGATIVE (Negative) SARS-CoV-2 RNA (RT-PCR) NEGATIVE (Negative) Independent Interpretation I performed an independent interpretation of an: EKG (Sinus heart rate is 80 NE QRS QTC normal no acute ST segment elevation), Plain X-Ray (Chest x-ray negative for pneumonia) and CT Scan (CT head negative) Radiology Impression Discussion of test interpretation with radiology: I have reviewed the radiologist's reading. External Record Review External record reviewed: Inpatient record Chronic Conditions Patient?s care impacted by: Diabetes and Hypertension Social Determinants Patient?s care significantly limited by Social Determinants of Health including: Problems related to primary support group Discharge Plan Discharge Clinical Impression: Hypomagnesemia, Acute hypokalemia Patient Disposition: Home, Self-Care Instructions: Hypokalemia (ED), Potassium Content of Foods List (ED), Hypomagnesemia (ED) Prescriptions: No Action (DME) walker Misc See Rx Instructions .MEDSUPPLY Qty: 1 0RF Rx Instructions: Folding Front wheeled walker celecoxib 200 mg capsule 200 mg PO BID Qty: 60 3RF cholecalciferol (vitamin D3) 25 mcg (1,000 unit) tablet 25 mcg PO DAILY Qty: 90 3RF thiamine HCl (vitamin B1) 100 mg tablet 100 mg PO DAILY Qty: 90 3RF albuterol sulfate [Ventolin HFA] 90 mcg/actuation HFA aerosol inhaler 1 puff PO Q4-6H PRN (Reason: for wheezing) Qty: 18 0RF fluticasone propion-salmeterol [Advair Diskus] 250-50 mcg/dose blister with device 1 inh PO BID Qty: 60 5RF albuterol sulfate 2.5 mg /3 mL (0.083 %) solution for nebulization 2.5 mg inhalation Q4H PRN (Reason: shortness of breath or wheezing) Qty: 75 0RF citalopram 40 mg tablet 1 tab PO QAM hydroxyzine HCl 25 mg tablet 1 tab PO BEDTIME PRN (Reason: itch) docusate sodium 100 mg Capsule 100 mg PO BID 14 Days Qty: 28 0RF cyclobenzaprine 10 mg tablet 10 mg PO TID PRN (Reason: muscle spasm) Qty: 10 0RF magnesium oxide 400 mg magnesium capsule 400 mg PO DAILY Qty: 30 0RF zolpidem 10 mg tablet 10 mg PO BEDTIME PRN (Reason: Insomnia) lorazepam 0.5 mg tablet 0.5 mg PO BID PRN (Reason: Anxiety) furosemide 40 mg tablet 40 mg PO DAILY epinephrine 0.3 mg/0.3 mL auto-injector 0.3 mg IM Q10M PRN (Reason: Anaphylaxis) Rx Instructions: for 2 doses pantoprazole 40 mg tablet,delayed release (DR/EC) 40 mg PO DAILY montelukast 10 mg tablet 10 mg PO BEDTIME loratadine 10 mg capsule 10 mg PO DAILY fluticasone propionate [Flonase Allergy Relief] 50 mcg/actuation spray,suspension 1 spray intranasal DAILY Rx Instructions: administer into each nostril atorvastatin 40 mg tablet 40 mg PO BEDTIME (DME) lancets [Easy Touch Twist Lancets] 33 gauge misc See Rx Instructions .ROUTE BID Qty: 100 Rx Instructions: As directed (DME) FreeStyle Lite Strips Strip See Rx Instructions .ROUTE BID Qty: 10 Rx Instructions: As directed multivitamin with folic acid [Daily-Royal (with folic acid)] 400 mcg tablet 1 tab PO DAILY magnesium oxide 250 mg magnesium tablet 250 mg PO DAILY cyanocobalamin (vitamin B-12) [Vitamin B-12] 1,000 mcg tablet 1,000 mcg PO DAILY tramadol 50 mg tablet 50 mg PO Trulicity 0.75 mg/0.5 mL pen injector subcut QWEEK ipratropium bromide 21 mcg (0.03 %) spray,non-aerosol 1 - 2 spray intranasal PRN Referrals: Leelee Yanes MD [Primary Care Provider] - 09/04/24 Print Language: Guyanese
[2024-09-02 16:31] LABS: MANUAL DIFF FLAG NO
[2024-09-02 16:32] LABS: Basophils Percent Auto 0.3 % (0-2); Eosinophils Absolute Auto 0.1 X10*3/uL (0.0-0.4); Eosinophils Percent Auto 1.2 % (0-4); Hematocrit 35.7 % (37.0-47.0); Imm Gran Abs Auto 0.04 X10*3/uL (0.00-0.03); Imm Gran Pct Auto 0.4 % (0.0-0.4); Lymphocytes Absolute Auto 3.3 X10*3/uL (1.2-4.9); Lymphocytes Percent Auto 31.2 % (20-40); Mean Corpuscular HGB Conc 33.6 g/dl (31.0-35.0); Mean Corpuscular Hemoglobin 27.9 pg (27.0-33.0); Mean Platelet Volume 10.1 fL (9.4-12.3); Monocytes Absolute Auto 0.9 X10*3/uL (0.1-1.2); Monocytes Percent Auto 8.6 % (2-11); Neutrophils Absolute Auto 6.2 x10*3/uL (2.0-8.3); Neutrophils Percent Auto 58.3 % (45-73); Platelet Count 309 X10*3/uL (160-400); Red Cell Distribution Width 14.7 % (11.0-16.0); White Blood Count 10.6 X10*3/uL (4.8-10.8)
[2024-09-02 16:37] LABS: INTERNATIONAL NORM RATIO 0.9 (0.9-1.1); Prothrombin Time 10.8 SEC (10.9-12.4)
[2024-09-02 16:53] LABS: Troponin-I High Sensitivity 3.3 ng/L (<3.5-17.0)
[2024-09-02 17:02] LABS: Alanine Aminotransferase 33 U/L (0-31); Albumin Level 3.7 g/dL (3.5-5.0); Alkaline Phosphatase 100 U/L (39-117); Anion Gap 13 (12-20); Aspartate Amino Transferase 24 U/L (5-31); Bilirubin Total 0.3 mg/dL (0.0-1.0); Blood Urea Nitrogen 14 mg/dL (9-16); Calcium 7.6 mg/dL (8.4-10.2); Carbon Dioxide 33 mmol/L (22-29); Chloride 101 mmol/L (96-108); Creatinine Clr Calc Pharmacy 73.4; Estimated Glomerular Filt Rate > 60; Glucose Random 96 mg/dL (60-115); Magnesium 0.9 mg/dL (1.6-2.6); Sodium 144 mmol/L (135-145); Total Protein 6.8 g/dL (6.5-8.0)
[2024-09-02 17:10] LABS: Influenza A PCR NEGATIVE (Negative); Influenza B PCR NEGATIVE (Negative); Resp Syncy Virus RNA Qual PCR NEGATIVE (Negative); SARS COV2 PCR INHOUSE NEGATIVE (Negative)
[2024-09-02 17:25] VITALS: BP 114/71; PULSE 82; RESP 18; TEMP 36.2; O2SAT 95
--- NOTE | 2024-09-02 17:30 | PC.NURSE ---
Patient is a 58-year-old female presents to ED for numbness/tingling of upper extremities, head,face, chest and fingertips for the past 5 days. Patient states history of low potassium and low magnesium which usually caused her to have numbness/tingling. NIH score is 0. 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 Patient recently treated for bronchitis. No Neuro deficits noted. Lungs clear bilat. Respirations even and non-labored. Abdomen large, soft, non-tender with positive bowel sounds. Positive pedal pulses with no edema noted.
--- OUTSIDE RECORDS SUMMARY | 2024-09-02 17:53 | XMS_ITS | Clinical Summary ---
Author Organization 175 [facility] Address [address] [place] [address] Phone Care Team Providers Care Core Inserter Name Role Phone eLelee Yanes MD Primary Care Provider + [phone] Allergies No known active allergies Medications acetaminophen (TYLENOL) 500 mg tablet Take 1 tablet (500 mg total) by mouth every 8 (eight) hours if needed. 03/25/20 24 Active albuterol 2.5 mg /3 mL (0.083 %) nebulizer solution TAKE 3 ML BY NEBULIZER EVERY 6 HOURS NEEDED FOR COUGH, WHEEZING, OR SHORTNESS OF BREATH 04/01/20 24 Active atorvastatin (LIPITOR) 40 mg tablet TOME 1 TABLETA POR V A ORAL TODOS LOS D 03/14/20 24 Active azelastine (ASTELIN) 137 mcg (0.1 %) nasal spray INHALE 1 SPRAY IN EACH NOSTRIL TWICE DAILY 02/24/20 24 Active blood sugar diagnostic (FreeStyle Lite Strips) test strip USE SEG N LO INDICADO DOS VECES AL D A 02/12/20 24 Active cholecalciferol (VITAMIN D-3) 25 mcg (1,000 unit) tablet TOME TAYLOR TABLETA TODOS LOS D 02/09/20 24 Active citalopram (CeleXA) 40 mg tablet TOME TAYLOR TABLETA TODOS LOS D EN LA VALARIE LEELEE 04/09/20 24 Active cyclobenzaprine (FLEXERIL) 10 mg tablet TAKE 1 TABLET BY MOUTH AT BEDTIME FOR 14 DAYS 12/18/19 24 Active docusate sodium (COLACE) 100 mg capsule TAKE 1 CAPSULE BY ORAL ROUTE 1 - 2 TIMES EVERY DAY NEEDED FOR CONSTIPATION 01/22/20 24 Active doxycycline hyclate (VIBRA-TABS) 100 mg tablet TAKE 1 TABLET BY MOUTH TWICE DAILY FOR 7 DAYS. TAKE WITH A FULL GLASS OF WATER AND Do not lie down for 30 minutes after taking 04/01/20 24 Active Trulicity 0.75 mg/0.5 mL pen injector injection INJECT ONE PEN (=0.75MG) SUBCUTANEOUSLY ONCE A WEEK DIRECTED 04/17/20 24 Active EPINEPHrine (EPIPEN) 0.3 mg/0.3 mL injection CARRY ON IMMUNOTHERAPY DAYS. INJECT FOR ANAPHYLAXIS 10/16/19 24 Active Advair Diskus 250-50 mcg/dose diskus inhaler TOME TAYLOR INHALACI N POR V A ORAL DOS VECES AL D A 04/28/20 24 Active fluticasone propionate (FLONASE) 50 mcg/actuation nasal spray SPRAY 2 SPRAYS IN EACH NOSTRIL EVERY MORNING 01/09/20 24 Active furosemide (LASIX) 40 mg tablet TOME 1 TABLETA POR V A ORAL TODOS LOS D 04/15/20 24 Active hydrocortisone (ANUSOL-HC) 2.5 % rectal cream INSERT RECTALLY TWICE DAILY 12/18/19 24 Active ipratropium (ATROVENT) 21 mcg (0.03 %) nasal spray INHALE 1-2 SPRAYS NASALLY NEEDED UP TO 3 TIMES A DAY. 12/11/19 24 Active ketotifen fumarate (ZADITOR) 0.035 % ophthalmic solution PONGA TAYLOR GOTA EN NICOLE AFECTADO DOS VECES AL JOSÉ LUIS 04/03/20 24 Active TRUEplus Lancets 33 gauge misc USE DIRECTED TO TEST BLOOD SUGAR TWICE DAILY 12/18/19 24 Active LORazepam (ATIVAN) 0.5 mg tablet TOME 1 TABLETA POR V A ORAL TODOS LOS D CUANDO SEA NECESARIO 03/25/20 24 Active loratadine (CLARITIN) 10 mg tablet TOME 1 TABLETA POR V A ORAL TODOS LOS D 03/25/20 24 Active magnesium oxide 400 mg magnesium capsule TOME 1 C PSULA POR V A ORAL TODOS LOS D (FOR LOW MAGNESIUM) 06/19/19 24 Active meclizine (ANTIVERT) 25 mg tablet TAKE 1 TABLET BY MOUTH THREE TIMES DAILY IN THE MORNING, AT NOON, AND AT BEDTIME NEEDED FOR DIZZINESS 03/13/20 24 Active methylPREDNISolo ne (MEDROL DOSPAK) 4 mg tablet PLEASE SEE ATTACHED FOR DETAILED DIRECTIONS 04/04/20 24 Active montelukast (SINGULAIR) 10 mg tablet TOME TAYLOR TABLETA TODOS LOS D AL ACOSTARSE 03/25/20 24 Active Daily-Royal, with folic acid, 400 mcg tablet TAKE 1 TABLET BY MOUTH WITH FOOD 04/15/20 24 Active nystatin (MYCOSTATIN) 100,000 unit/gram powder USE ON AFFECTED AREA(S) TWICE DAILY DIRECTED 03/13/20 24 Active ondansetron (ZOFRAN) 4 mg tablet TAKE 1 OR 2 TABLETS BY MOUTH THREE TIMES DAILY BEFORE MEALS NEEDED FOR NAUSEA AND VOMITING 03/13/20 24 Active pantoprazole (PROTONIX) 40 mg EC tablet TOME 1 TABLETA POR V A ORAL TODOS LOS D EN LA MA LEELEE 03/29/20 24 Active potassium chloride (KLOR-CON) 10 mEq CR tablet TAKE 1 TABLET BY MOUTH EVERY MORNING FOR 30 DOSES, DO NOT BREAK, CRUSH, DISSOLVE OR CHEW 06/23/19 24 Active predniSONE (DELTASONE) 20 mg tablet TAKE 2 TABLETS DAILY FOR 5 DAYS 07/18/19 24 Active thiamine 100 mg tablet TOME TAYLOR TABLETA TODOS LOS D 03/11/20 24 Active traMADoL (ULTRAM) 50 mg tablet Take 1 tablet (50 mg total) by mouth every 12 (twelve) hours if needed for severe pain. 04/18/20 24 Active zolpidem (AMBIEN) 10 mg tablet TOME 1/2-1 TABLETA POR V A ORAL TOS LOS D AL ACOSTARSE CUANDO SEA NECESARIO 04/15/20 24 Active silver sulfADIAZINE (SSD) 1 % cream Apply topically 1 (one) time each day. 50 g 06/20/19 25 026 Active Active Problems Problem Noted Date Diagnosed Date Class 2 obesity 05/07/2024 Anxiety 05/07/2024 History of total hysterectomy 05/07/2024 Moderate asthma with acute exacerbation 05/07/19 25 KAYLEE (obstructive sleep apnea) 05/07/2024 Lumbar radiculopathy 05/07/2024 Type 2 diabetes mellitus wit hout complication, without long-term current use of insulin ([facility] V24, [facility] V28) 05/07/2024 Dysphonia 05/07/2024 Primary hypertension 05/07/2024 History of total knee arthroplasty 05/07/2024 Major depressive disorder 05/07/2024 Osteoarthritis of left knee 05/07/2024 Acute rhinitis 05/07/2024 CTS (carpal tunnel syndrome) 05/07/2024 Chronic bilateral low back pain with bilateral s ciatica 05/07/2024 Controlled substance agreement broken 05/07/2024 Epigastric pain 05/07/2024 IFG (impaired fasting glucose) 05/07/2024 Encounters Date Type Department Care Team Description 08/15/2024 2:00 PM EDT Office Visit Orthopedic Surgery [facility] [address] [phone] Sudeep De La Vega, DPM Controlled type 2 diabetes with neuropathy (CMS/[facility] V24, CMS/HCC V28) (Primary Dx); Arthritis of both feet; PAD (peripheral artery disease) ([facility] V24); Dermatophytosis, nail 07/12/2024 2:15 PM EDT Office Visit Orthopedic [facility] [address] [phone] Sudeep De La Vega, DPM Pain in left foot (Primary Dx); Open wound of left great toe, subsequent encounter 07/04/2024 1:30 PM EST Office Visit [facility] [address] [phone] Sudeep De La Vega, DPM Open wound of left great toe, initial encounter (Primary Dx); Cellulitis of left foot 07/01/2024 2:15 PM EST Office Visit Orthopedic [facility] [address] [phone] Sudeep De La Vega, DPM Pain in left foot (Primary Dx); Cellulitis of left foot 06/20/2024 10:30 AM EST Office Visit [facility] [address] [phone] Sudeep De La Vega, DPM Cellulitis of left foot (Primary Dx); Ingrown left big toenail; Ingrown right big toenail 06/20/2024 Telephone Orthopedic [facility] [address] [phone] Sudeep De La Vega DPM from Last 3 Months Social History Tobacco Use Types Packs/Day Years Used Date Smoking Tobacco: Never Assessed Comments Unknown Sex and Gender Information Value Date Recorded Sex Assigned at Not on file Legal Sex Female 2:16 AM EST Gender Identity Not on file Sexual Orientation Not on file Last Filed Vital Signs Vital Sign Reading Time Taken Comments Blood Pressure - - Pulse - - Temperature - - Respiratory Rate - - Oxygen Saturation - - Inhaled Oxygen Concentration - - Weight 97.5 kg (215 lb) 08/15/2024 1:33 PM EDT Height 154.9 cm (5' 0.98 ) 08/15/2024 1:33 PM ED T Body Mass Index 40.65 08/15/2024 1:33 PM EDT Plan of Treatment Upcoming Encounters Date Type Department Care Team ([facility] st Contact Info) Description 10/24/2024 3:00 PM EDT Office Visit Orthopedic Surgery - [place] [address] [phone] Sudeep De La Vega DPM [address] [address] Health Maintenance Due Date Last Done Comments Breast Cancer Screening 1965 Diabetes: Annual GFR (Glomerular Filtration Rate) 1965 Diabetes: Annual Foot Exam 09/26/1973 Diabetes: Annual Retina Eye Exam 09/26/1973 Cervical Cancer Screening: Pap Smear 09/26/1984 Zoster Vaccines (2 of 2) 08/17/2021 06/22/2021 DTaP,Tdap,and Td Vaccines (3 - Td or Tdap) 07/06/2022 07/06/2012, 11/11/2005 RSV Immunization Adult Patients (1 - Risk 60-74 years 1-dose series) 2023 COVID-19 Vaccine ( - season) 2023 02/16/2021, 08/03/2020, 07/13/2020 Cholesterol Screening (Lipid Panel) 03/04/2024 Colorectal Cancer Screening: Colonoscopy 03/04/2024 HIV Screening 03/04/2024 Hepatitis C Screening 03/04/2024 Social Influencers of Health Screening 03/04/2024 Diabetes: Annual Urine Albumin-Creatinine Ratio (uACR) 05/07/2024 Hypertension/CHF/CAD Annual BMP Blood Test 05/07/2024 Depression Screening 05/31/2024 05/31/2023 Diabetes: Blood Sugar Control Test (HGBA1C) 08/20/2024 02/20/2024 Influenza Vaccine (Season Ended) 2024 01/26/2023, 05/10/2021, 01/27/2020, Additional history exists Hepatitis B Vaccines Aged [...] age to complete this topic Meningococcal B Vaccine Aged Out No l onger eligible based on patient's age to complete this topic RSV Immunization Patients Under 20 months Aged Out No longer eligible based on patient's age to complete this topic Varicella Vaccines Aged Out No longer eligible based on patient's age to complete this topic Insurance [place]ICA[place] - [place] Care Teams Core Inserter Relationship Specialty Start Date End Date Leelee Yanes MD [address] [place] [phone] PCP - General 06/02/23
--- OUTSIDE RECORDS SUMMARY | 2024-09-02 17:53 | XMS_ITS | Encounter Summary ---
Author Organization [employer] Address [address] [facility] 7t [place] [address] Care Team Providers Care Tester Sound Name Role Phone Leelee Yanes MD Primary Care Provider + Reason for Visit * Reason Comments Med Refill Encounter Details Date Type Department Care Team (Late st Contact Info) Description 06/10/2024 Refill [facility] PEDS [address] [place], [place] [phone] Leelee Yanes MD 230 [place] [address] Lumbar radiculopathy; Primary osteoarthritis of left knee; [...] AM EDT Clinical Support [facility] MEDICINE 230 [place] [address] Yoana Perry RN 12/06/2024 3:00 PM EDT Office Visit [facility] OPTOMET[facility] [address] [place] [address] Sanchez, Karly, OD 230 [place] [address] documented as of this encounter Visit Diagnoses Diagnosis Lumbar radiculopathy Thoracic or lumbosacral neuritis or radiculitis, unspecified Primary osteoarthritis of left knee Acute bilateral low back pain, unspecified whether sciatica present documented in this encounter Additional Health Concerns Assessment Noted Time PHQ-9 Depression Total Score: 16 024 9:59 AM EST documented as of this encounter Care Teams Tester Sound Relationship Specialty Start Date End Date Leelee Yanes MD [address] [place] [address] PCP - General Family Medicine 06/11/20 documented as of this encounter
--- OUTSIDE RECORDS SUMMARY | 2024-09-02 17:53 | XMS_ITS | Encounter Summary ---
Author Organization [employer] Address [address] [place] [address] 7t [place] [address] Care Team Providers Care Medicaid Billing Specialist Name Role Phone Leelee Yanes MD Primary Care Provider + Reason for Visit * Reason Comments Med Refill Encounter Details Date Type Department Care Team (Late Contact Info) Description 01/18/2023 Refill [facility] MEDICINE [address] [place], [place] [phone] Leelee Yanes MD [address] [place] [address] [phone] Social History Tobacco Use Types Packs/Day Years [...] 10/03/2024 11:30 AM EDT Clinical Support [facility] MEDICINE [address] [place] [address] Yoana Perry RN 12/06/2024 3:00 PM EDT Office Visit [facility] OPTOMETRY [address] [place], [place] [phone] Karly Bradford, OD 230 [place] [address] documented as of this encounter Visit Diagnoses Not on filedocumented in this encounter Additional Health Concerns Assessment Noted Time PHQ-9 Depression Total Score: 14 023 9:55 AM EDT documented as of this encounter Care Teams Medicaid Billing Specialist Relationship Specialty Start Date End Date Leelee Yanes MD 230 [place] [address] PCP - General Family Medicine 06/11/20 documented as of this encounter
--- OUTSIDE RECORDS SUMMARY | 2024-09-02 17:53 | XMS_ITS | Encounter Summary ---
Author Organization [employer] Address [address] [place] [address] 7t [place] [address] Care Team Providers Care Automotive Electrician Name Role Phone Leelee Yanes MD Primary Care Provider + Reason for Visit * Reason Comments Med Refill Encounter Details Date Type Department Care Team (Late st Contact Info) Description 03/07/2023 Refill [facility] MEDICINE [address] [place] [address] Yulia Perez MD [address] [place] [address] Lumbar radiculopathy; Primary osteoarthritis of left knee; [...] Description 10/03/2024 11:30 AM EDT Clinical Support [facility] MEDICINE [address] [place] [address] Yoana Perry RN 12/06/2024 3:00 PM EDT Office Visit [facility] OPTOMETRY [address] [place] [address] Karly Bradford, OD [address] [place] [address] documented as of this encounter Visit Diagnoses Diagnosis Lumbar radiculopathy Thoracic or lumbosacral neuritis or radiculitis, unspecified Primary osteoarthritis of left knee Acute bilateral low back pain, unspecified whether sciatica present documented in this encounter Additional Health Concerns Assessment Noted Time PHQ-9 Depression Total Score: 14 023 9:55 AM EDT documented as of this encounter Care Teams Automotive Electrician Relationship Specialty Start Date End Date Leelee Yanes MD [address] [place] [address] PCP - General Family Medicine 06/11/20 documented as of this encounter
--- OUTSIDE RECORDS SUMMARY | 2024-09-02 17:53 | XMS_ITS | Encounter Summary ---
Author Organization [employer] Address [address] [place] [address] 7t [place] [address] Care Team Providers Care Shale Planer Operator Helper Name Role Phone Leelee Yanes MD Primary Care Provider + Reason for Visit * Reason Onset Date Comments Nurse Triage 03/26/2024 Encounter Details Date Type Department Care Team ([facility] st Contact Info) Description 03/26/2024 Telephone [facility] MEDICINE [address] [place], [place] [phone] Leelee Yanes MD [address] [place] [address] Nurse Triage Social History Tobacco Use Types [...] Miscellaneous Notes * Telephone Encounter - Jackie Dasilav RN - 03/26/2024 4:55 PM EST Triage call with [facility] [place] [id number] , Prateek, Pt didn't answer. Left voice message to call [facility] [phone] * Telephone Encounter - Nader Hernandez - 03/26/2024 4:46 PM EST Symptom: Dizziness Outcome: Talk to a nurse or provider within 15 minutes Reason: Trouble walking The caller accepted this outcome. Faroese Speaking documented in this encounter Plan of Treatment Upcoming Encounters Date Type Department Care Team (Late st Contact Info) Description 10/03/2024 11:30 AM EDT Clinical Support [facility] MEDICINE [address] [place] [address] Yoana Perry, ESTEFANÍA 12/06/2024 3:00 PM EDT Office Visit [facility] OPTOMETRY [address] [place] [address] Karly Bradford, OD [address] [place] [address] documented as of this encounter Visit Diagnoses Not on filedocumented in this encounter Additional Health Concerns Assessment Noted Time PHQ-9 Depression Total Score: 16 024 9:59 AM EST documented as of this encounter Care Teams Shale Planer Operator Helper Relationship Specialty Start Date End Date Leelee Yanes MD [address] [place] [address] PCP - General Family Medicine 06/11/20 documented as of this encounter
--- OUTSIDE RECORDS SUMMARY | 2024-09-02 17:53 | XMS_ITS | Encounter Summary ---
Author Organization [employer] Address [address] [place] [address] 7t [place] [address] Care Team Providers Care Digital Business Analyst Name Role Phone Leelee Yanes MD Primary Care Provider + Reason for Visit * Reason Onset Date Comments Schedule DISEASE CASE MANAGER Renewal Appt 03/13/2024 Med Refill 03/13/2024 Encounter Details Date Type Department Care Team (Late st Contact Info) Description 03/13/2024 Refill [facility] MEDICINE [address] [place] [address] Leelee Yanes MD [address] [place] [address] Lumbar radiculopathy; Primary osteoarthritis of left knee; [...] TC to patient, translation provided by [facility] medical dermatologist, pt c/o dizziness, headache andvomiting since yesterday. Scheduled to come to [facility] today for evaluation. DISEASE CASE MANAGER Renewal scheduled for 04/22/24 @ 10:30am. * Telephone Encounter - Nettie Smith - 03/13/2024 11:42 AM EST Tc from pt requesting to speak to DISEASE CASE MANAGER nurse regarding medication. Contact pt at [phone] (irish) documented in this encounter Plan of Treatment Upcoming Encounters Date Type Department Care Team (Late st Contact Info) Description 10/03/2024 11:30 AM EDT Clinical Support [facility] MEDICINE [address] [place] [address] Yoana Perry RN 12/06/2024 3:00 PM EDT Office Visit [facility] OPTOMETRY [address] [place], [place] [phone] Karly Bradford, OD [address] [place] [address] documented as of this encounter Visit Diagnoses Diagnosis Lumbar radiculopathy Thoracic or lumbosacral neuritis or radiculitis, unspecified Primary osteoarthritis of left knee Acute bilateral low back pain, unspecified whether sciatica present documented in this encounter Additional Health Concerns Assessment Noted Time PHQ-9 Depression Total Score: 16 024 9:59 AM EST documented as of this encounter Care Teams Digital Business Analyst Relationship Specialty Start Date End Date Leelee Yanes MD [address] [place] [address] PCP - General Family Medicine 06/11/20 documented as of this encounter
--- OUTSIDE RECORDS SUMMARY | 2024-09-02 17:53 | XMS_ITS | Encounter Summary ---
Author Organization [employer] Address [address] [place] [address] 7t [place] [address] Care Team Providers Care Senior Executive Compensation Analyst Name Role Phone Leelee Yanes MD Primary Care Provider + Encounter Details Date Type Department Care Team (Late Contact Info) Description 01/23/2023 Orders Only [facility] MED & PEDS [address] [place], [place] [phone] Ghada Isidro LPN Social History Tobacco Use [...] 11:30 AM EDT Clinical Support [facility] MEDICINE [address] [place], [place] [phone] Yoana Perry RN 12/06/2024 3:00 PM EDT Office Visit [facility] OPTOMETRY [address] [place], [place] [phone] Karly Bradford, OD 230 [place] [address] documented as of this encounter Visit Diagnoses Not on filedocumented in this encounter Additional Health Concerns Assessment Noted Time PHQ-9 Depression Total Score: 14 023 9:55 AM EDT documented as of this encounter Care Teams Senior Executive Compensation Analyst Relationship Specialty Start Date End Date Leelee Yanes MD [address] [place] [address] PCP - General Family Medicine 06/11/20 documented as of this encounter
--- OUTSIDE RECORDS SUMMARY | 2024-09-02 17:53 | XMS_ITS | Encounter Summary ---
Author Organization [employer] Address [address] [place] [address] [address] [place] [address] Care Team Providers Care Vpk Teacher Name Role Phone Leelee Yanes MD Primary Care Provider + Reason for Visit * Reason Comments Med Refill Encounter Details Date Type Department Care Team (Late st Contact Info) Description 06/05/2023 Refill [facility] MEDICINE [address] [place] [address] Leelee Yanes MD [address] [place] [address] Lumbar radiculopathy; Primary osteoarthritis of left knee; [...] Description 10/03/2024 11:30 AM EDT Clinical Support [facility] MEDICINE [address] [place] [address] Yoana Perry RN 12/06/2024 3:00 PM EDT Office Visit [facility] OPTOMETRY [address] [place] [address] Sanhcez, Karly, OD [address] [place] [address] documented as of this encounter Visit Diagnoses Diagnosis Lumbar radiculopathy Thoracic or lumbosacral neuritis or radiculitis, unspecified Primary osteoarthritis of left knee Acute bilateral low back pain, unspecified whether sciatica present documented in this encounter Additional Health Concerns Assessment Noted Time PHQ-9 Depression Total Score: 16 024 9:59 AM EST documented as of this encounter Care Teams Vpk Teacher Relationship Specialty Start Date End Date Leelee Yanes MD [address] [place] [address] PCP - General Family Medicine 06/11/20 documented as of this encounter
--- OUTSIDE RECORDS SUMMARY | 2024-09-02 17:53 | XMS_ITS | Encounter Summary ---
Author Organization [employer] Address [address] [place] [address] 7t [place] [address] Care Team Providers Care Rotary Veneer Machine Operator Name Role Phone Leelee Yanes MD Primary Care Provider + Reason for Visit * Reason Comments Med Refill Encounter Details Date Type Department Care Team (Late st Contact Info) Description 06/05/2023 Refill [facility] MEDICINE [address] [place] [address] Leelee Yanes MD [address] [place] [address] Lumbar radiculopathy; Primary osteoarthritis of left knee; [...] Description 10/03/2024 11:30 AM EDT Clinical Support [facility] MEDICINE [address] [place] [address] Yoana Perry RN 12/06/2024 3:00 PM EDT Office Visit [facility] OPTOMETRY [address] [place] [address] Sanchez, Karly, OD [address] [place] [address] documented as of this encounter Visit Diagnoses Diagnosis Lumbar radiculopathy Thoracic or lumbosacral neuritis or radiculitis, unspecified Primary osteoarthritis of left knee Acute bilateral low back pain, unspecified whether sciatica present documented in this encounter Additional Health Concerns Assessment Noted Time PHQ-9 Depression Total Score: 16 024 9:59 AM EST documented as of this encounter Care Teams Rotary Veneer Machine Operator Relationship Specialty Start Date End Date Leelee Yanes MD [address] [place] [address] PCP - General Family Medicine 06/11/20 documented as of this encounter
--- OUTSIDE RECORDS SUMMARY | 2024-09-02 17:53 | XMS_ITS ---
Author Organization [facility] Address [address] [place] [phone] Care Team Providers Care Mosquito Sprayer Name Role Phone Farzana KELLY, Leelee Primary Care Provider Unavail Shay Ashraf [phone] Encounters Encounter Location Date Provider Diagnosis [facility] [address] [place] [phone] 08/07/2024 Shay Araya Plan Of Treatment Next Appt Details Provider Name:Shay Araya , 11/15/2024 11:00:00 AM, [address] [place] [address] , [place], [place], [phone], Progress Notes * ERWIN HARRIS NDOB:1965 (58 yo F)Acc No.[id number]:08/07/2024 Patient:?ERWIN HARRIS :1965???Age:58 Y???Sex:Female Address:[address] [place] [address] * true * Date:? Generated for Printi chloe/Drake/eTransmitting on:?09/02/2024 05:52 PM EDT
--- OUTSIDE RECORDS SUMMARY | 2024-09-02 17:53 | XMS_ITS | Encounter Summary ---
Author Organization [employer] Address [address] [facility] 7t [place] [address] Care Team Providers Care Vat House Supervisor Name Role Phone Leelee Yanes MD Primary Care Provider + Encounter Details Date Type Department Care Team ([facility] st Contact Info) Description 02/17/2023 Telephone [facility] MEDICINE [address] [place] [address] Leelee Yanes MD [address] [place], [place] [phone] Social History Tobacco Use Types Packs/Day Years [...] C3 requesting a call in regards to SAP FUNCTIONAL ANALYST form. Please contact parvez at [phone] documented in this encounter Plan of Treatment Upcoming Encounters Date Type Department Care Team (Late st Contact Info) Description 10/03/2024 11:30 AM EDT Clinical Support [facility] MEDICINE [address] [place] [address] Yoana Perry RN 12/06/2024 3:00 PM EDT Office Visit [facility] OPTOMETRY [address] [place], [place] [phone] Karly Bradford, ART [address] [place] [address] documented as of this encounter Visit Diagnoses Not on filedocumented in this encounter Additional Health Concerns Assessment Noted Time PHQ-9 Depression Total Score: 14 023 9:55 AM EDT documented as of this encounter Care Teams Vat House Supervisor Relationship Specialty Start Date End Date Leelee Yanes MD [address] [place] [address] PCP - General Family Medicine 06/11/20 documented as of this encounter
--- OUTSIDE RECORDS SUMMARY | 2024-09-02 17:53 | XMS_ITS | Clinical Summary ---
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 2 each 3 025 2025 Active glucose blood (FREESTYLE LITE) test stripIndications: Type 2 diabetes mellitus without complication, without long-term current use of insulin ([facility]) USE TO TEST BLOOD SUGAR TWICE A DAY 50 strip 11 Active traMADol (Ultram) 50 MG tabletIndications :Lumbar radiculopathy,Sun tomasa osteoarthritis of left knee,Acute bilateral low back pain, unspecified whether sciatica present Take 1 tablet (50 mg) by mouth every 12 (twelve) hours if needed for severe pain for up to 28 days. 56 tablet 025 2024 Active azithromycin (Zithromax Z-Clayton) 250 MG tabletIndications :Moderate persistent asthma with exacerbation Take 2 tabs po x 1 day then 1 tab po daily x 4 days 6 tablet Active guaiFENesin (Robitussin) 100 MG/5ML liquidIndications :Moderate persistent asthma with exacerbation Take 10 mL (200 mg) by mouth if needed in the morning, at noon, and at bedtime for cough for up to 10 days. 120 mL 2024 Active predniSONE (Deltasone) 20 MG tabletIndications :Asthma Take 3 tablets (60 mg) by mouth Once per day for 3 days, THEN 2 tablets (40 mg) Once per day for 3 days, THEN 1 tablet (20 mg) Once per day for 2 days, THEN 0.5 tablets (10 mg) Once per day for 2 days. 18 tablet 025 2024 Active traMADol (Ultram) 50 MG tabletIndications :Lumbar radiculopathy,Sun tomasa osteoarthritis of left knee,Acute bilateral low back pain, unspecified whether sciatica present Take 1 tablet (50 mg) by mouth every 12 (twelve) hours if needed for severe pain for up to 28 days. Do not start before July 11, 2024. 56 tablet 025 2024 Discontinued(R eorder (will not trigger notification to Pharmacy)) Active Problems Problem Noted Date Diagnosed Date Urge incontinence of urine 03/19/2024 Long-term current use of opiate analgesic 2023 Overview (02/20/2024): Medication: Tramadol 50mg Q12H BID Indication: lumbar radiculopathy, OA bilat knees Last [employer] Agreement: 05/10/23 Assessment & Plan (02/20/2024 8:11 PM EDT): -Today was first group, she will decide if group setting or individual visit with RN is preferred. Scheduled for [employer] group 03/12/24 as requested. -Encouraged multifactorial approach [...] prn and avoid constipation Re consult prn. Edema of right ankle 07/19/2023 Assessment & Plan (07/19/2023 12:54 PM EDT): - Most likely right ankle sprain - Advised to keep right lower extremely elevated, and apply ice to affected area and Tylenol PRN - Prescribed right ankle immobilizer, continue ambulation with walker Calcification of left breast on mammography 05/03 [...] for Utox today, she will fu with [employer] nurse, she's aware that she should be [...] Plan (11/25/2022 2:11 PM EDT): See above. Bilateral calcaneal spurs 08/23/2022 Assessment & Plan (06/03/2023 12:58 PM EST): -Follow up with Dr. Tejada -Renew referral to podiatry. Hip pain 08/23/2022 Carpal tunnel syndrome 08/23/2022 Assessment & [...] has changed from most recent one (see [employer] nurse note). Next refill will be due [...] replaced if lost or stolen. FU with [employer] nurse as scheduled Assessment & Plan (06/24/2022 1:08 PM EST): Continue weight reduction, tylenol 1000mg BID and 500mg tramadol qhs FU with orthopedics recommended use of cane for ambulation counseled regarding compliance with [employer] appointments, utox ordered today was negative pharmaco education regarding opiate use including proper storage, prohibited sharing medications with others, avoid alcohol or other recreational substances counseled to FU closely with [employer] provider. Type 2 diabetes mellitus without complication [...] persistent asthma with exacerbation Assessment & Plan (08/24/2024 10:11 AM EDT): Pt here with c/o cough productive of yellow phlegm On exam evidence of wheezing Neg Flu, Neg Covid, Neg Strep Symptoms indicative of asthma exacerbation due to acute Bronchitis, Plan: Prednisone taper, Z-Pack, Continue Nebulizations F/u if no improvement, if worsening pt to present to ER Assessment & Plan (04/01/2024 1:59 PM EST): [...] continue on Pantoprazole and refer to GI. Mixed hyperlipidemia 04/30/2015 Primary osteoarthritis involving multiple joints 04/30/2015 Shoulder pain 04/30/2015 Resolved Problems Problem Noted Date Diagnosed Date Resolved Date Body aches 04/25/2024 08/24/2024 Assessment & Plan (04/25/2024 2:12 PM EST): Most likely related to electrolyte imbalance, due to history of viral GI + poor PO intake. Viral gastroenteritis 04/22/20242024 Assessment & Plan (04/22/2024 4:25 PM EST): [...] after 24h rx Subacute maxillary sinusitis 04/01/2024 08/24/2024 Assessment & Plan (04/01/2024 2:00 PM EST): [...] than 100??F without medication Increase water intake Candidiasis 03/13/2024 08/24/2024 Assessment & Plan (03/13/2024 2:46 PM EST): Not active, use Nystatin powder daily Use clotrimazole cream prn to affected areas. Vertigo 03/13/2024 08/24/2024 Assessment & Plan (03/13/2024 2:48 PM EST): Most likely viral, exacerbated by dehydration Start Zofran prn nausea + Meclizine prn dizziness Advised re increase PO fluids, advance to soft diet as tolerated, continue Zofran prn. Call back if sxs persist after 1w Long toenail 02/20/2024 08/24/2024 Assessment & Plan (02/20/2024 2:29 PM EDT): Refer to Podiatry. Electrolyte imbalance 07/19/20232024 Assessment & Plan (07/19/2023 12:32 PM EDT): Magnesium and Potassium back to normal Advised to stop using supplementations Sprain of right ankle 07/19/20232024 Assessment & Plan (09/21/2023 10:41 AM EDT): Seems to be related to sprain + achilles tendinitis vs denervation injury of foot muscles Pt awaiting Rx for diabetic shoes and inserts form podiatry MRI result from podiatry, may need steroid injection Ambulation w/ a cane to prevent falls Refer to PT Hypokalemia 06/22/2023 08/24/2024 IFG (impaired fasting glucose) 05/31/2023 08/24/2024 Upper respiratory infection 12/01/2022 03/12/2024 Assessment & Plan (12/01/2022 7:16 PM EDT): Pt with reported sore throat with no other symptoms Erythema in oropharynx otherwise normal exam VS normal Here flu,covid,strep rapid test are neg Likely viral syndrome -hydration -supportive tx w cepacol, (tylenol , NSAIDs prn )-has at home -alarm signs and symptoms discussed Exercise counseling 11/25/2022 08/25/19 Preoperative examination 08/25/2022 Assessment & Plan (08/25/2022 10:24 AM EDT): XXXX Pain in finger 08/23/2022 08/24/2024 Hypomagnesemia 04/30/2015 08/24/2024 Encounters Date Type Department Care Team Description 09/02/2024 Orders Only GENERIC EXTERNAL DATA DEPARTMENT Provider, Generic External Data 09/02/[address] [facility] MEDICINE [address] [place] [address] Leelee Yanes MD 08/26/2024 Orders Only [facility] MEDICINE [address] [place] [address] Russ Davis MD 08/26/[address] [facility] MEDICINE [address] [place] [address] Russ Davis MD Medication Question 08/24/2024 9:40 AM EDT Office Visit [facility] WALK-IN CENTER [address] [place] [address] Russ Davis MD Moderate persistent asthma with exacerbation (Primary Dx); Sore throat 08/13/[address] [facility] MEDICINE [address] [place] [address] Leelee Yanes MD Lumbar radiculopathy; Primary osteoarthritis of left knee; Acute bilateral low back pain, unspecified whether sciatica present 07/12/2024 Population Health Risk Score [facility] ([facility]) Department [address] [place] [phone] Provider, Population Health Generic 07/11/[address] [facility] MEDICINE [address] [place] [address] Leelee Yanes MD Appointment Request 07/08/[address] [facility] MEDICINE [address] [place] [address] Leelee Yanes MD Lumbar radiculopathy; Primary osteoarthritis of left knee; Acute bilateral low back pain, unspecified whether sciatica present 07/01/[address] [facility] MEDICINE [address] [place] [address] Leelee Yanes MD Raul and [facility] (Underwear, 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 ) 06/14/[address] [facility] MEDICINE [address] [place] [address] Leelee Yanes MD Type 2 diabetes mellitus without complication, without long-term current use of insulin ([facility]) 06/10/2024 Refill [facility] [address] [place], [place] [phone] Leelee Yanes MD Lumbar radiculopathy; Primary osteoarthritis of left knee; Acute bilateral low back pain, unspecified whether sciatica present 06/10/[address] [facility] MEDICINE [address] [place] [address] Leelee Yanes MD Lumbar radiculopathy; Primary osteoarthritis of left knee; Acute bilateral low back pain, unspecified whether sciatica present 06/06/2024 Refill [facility] [address] [place] [address] Leelee Yanes MD Lumbar radiculopathy; Primary osteoarthritis of left knee; Acute bilateral low back pain, unspecified whether sciatica present 06/05/2024 11:30 AM EST Clinical Support [facility] MEDICINE [address] [place] [phone] Yoana Perry RN Chronic back pain, unspecified back location, unspecified back pain laterality (Primary Dx) 06/05/[address] [facility] MEDICINE [address] [place] [address] Yoana Perry RN Chronic back pain, unspecified back location, unspecified back pain laterality (Primary Dx) 06/05/2024 Travel from Last 3 Months Immunizations Name Administration [...] Sign Reading Time Taken Comments Blood Pressure 123/84 08/24/2024 9:26 AM EDT Pulse 85 08/24/2024 9:26 AM EDT Temperature 36.7 ??C (98 ??F) 08/24/2024 9:26 AM EDT Respiratory Rate 24 08/24/2024 9:26 AM EDT Oxygen Saturation 98% 08/24/2024 9:26 AM EDT Inhaled Oxygen Concentration - - Weight 98 kg (216 lb) 08/24/2024 9:26 AM EDT Height 154.9 cm (5' 1 ) 08/24/2024 9:26 AM EDT Body Mass Index 40.81 08/24/2024 9:26 AM EDT Plan of Treatment Upcoming Encounters Date Type Department Care Team (Late st Contact Info) Description 10/03/2024 11:30 AM EDT Clinical Support [facility] MEDICINE [address] [place] [address] Yoana Perry RN 12/06/2024 3:00 PM EDT Office Visit [facility] OPTOMETRY [address] [place] [address] Karly Bradford, OD [address] [place] [address] Health Maintenance Due Date Last Done Comments [...] years 1-dose series) 2023 COVID-19 Vaccine ( season) 2023 02/16/2021, 08/03/2020, 07/13/2020 Influenza Vaccine (#1) 2023 3, 05/10/2021, 01/27/2020, Additional history exists Diabetes: Urine Protein Screening 05/18/2024 05/18/2023 Lipid Panel 05/18/2024 05/18/2023, 12/31, 06/25/2020, Additional history exists Depression Screening 05/31/2024 [...] Procedure Name Priority Date/Time Associated Diagnosis Comments MAGNESIUM Routine 09/02/2024 4:26 PM EDT COMPREHENSIVE METABOLIC PANEL Routine 09/02/2024 4:26 PM EDT HIGH SENSITIVITY TROPONIN I Routine 09/02/2024 4:26 PM EDT APTT Routine 09/02/2024 4:26 PM EDT PROTHROMBIN TIME-INR Routine 09/02/2024 4:26 PM EDT CBC WITH AUTO DIFFERENTIAL Routine 09/02/2024 4:26 PM EDT SARS COV2/INFLUENZA A/B AND RSV RNA QL NAAT Routine 09/02/2024 4:[address] HEAD WO CONTRAST Routine 09/02/2024 4 :11 PM EDT XR CHEST 1 VIEW Routine 09/02/2024 4:04 PM EDT POCT INFLUENZA B (ID NOW RAPID MOLECULAR) Routine 08/24/2024 9:51 AM EDT Sore throat POCT INFLUENZA A (ID NOW RAPID MOLECULAR) Routine 08/24/2024 9:51 AM EDT Sore throat POC MALLOY ID NOW STREP A Routine 08/24/2024 9:42 AM EDT Sore throat POCT RAPID COVID ANTIGEN Routine 08/24/2024 9:42 AM EDT Sore throat AMB REFERRAL TO ORTHOPAEDIC SURGERY Routine 07/09/2024 Sprain of right ankle, unspecified ligament, sequela Achilles tendinosis POCT ZACHARY-14 URINE DRUG SCREEN Routine 06/05/2024 11:40 AM EST Chronic back pain, unspecified back location, unspecified back pain laterality BI MAMMOGRAM SCREENING TOMOSYNTHESIS BILATERAL Routine 05/03/2024 10:15 AM EST POCT GLYCATED HEMOGLOBIN, TOTAL Routine 02/20/2024 1:22 PM EDT Type 2 diabetes mellitus without complication, without long-term current use of insulin ([facility]) ALBUMIN, RANDOM URINE W/CREATININE Routine 05/18/2023 8:57 AM EST LIPID PANEL WITH REFLEX TO DIRECT LDL Routine 05/18/2023 8:51 AM EST Essential hypertension from Last 3 Months or Most Recently Relevant to Health Maintenance Results * High Sensitivity Troponin I (09/02/2024 4:26 PM EDT) TROPONIN I HIGH SENSITIVITY 3.3 <3.5 - 17.0 ng/L [facility] Comment:The Malloy high sens itivity Troponin-I results should beused in conjunction with other diagnostic information suchas ECG, clinical observations and information, and patientsymptoms to aid in the diagnosis of MT. 09/02/2024 4:26 PM EDT 09/02/2024 4:30 PM EDT Generic External Data Provider LAB BLOOD ORDERAB LES Final Result [facility] [address] [place] [phone] * SARS-CoV-2 RNA, Influenza A/B, and RSV RNA, Ql NAAT (09/02/2024 4:26 PM EDT) Pathologist [facility] Influenza A PCR NEGATIVE Negative [facility] Influenza B PCR NEGATIVE Negative [facility] Resp Syncy Virus RNA Qual PCR NEGATIVE Negative [facility] SARS COV2 PCR NEGATIVE Negative [facility] Comment:All test results mus t be correlated with clinical findings.Negative results do not preclude SARS-CoV2, influenza Avirus, influenza B virus and/or RSV infectionand should not be used as the sole basis for treatment orother patient management decisions. Negative results must becombined with clinical observations, patient history, andepidemiological information.This test has not been evaluated for monitoring treatment ofinfection.This test has been authorized by the FDA under an EmergencyUse Authorization (EUA) for use by authorized laboratories.Testing performed on the Retrotope GeneXpert utilizingreal-time RT-PCR.All SARS CoV2 and positive influenza A/B results arereported to [facility]. 09/02/2024 4:26 PM EDT 09/02/2024 4:30 PM EDT us Generic External Data Provider LAB MICROBIOLOGY - GENERAL ORDERABLES Final Result [facility] [address] [place], [place] [phone] * (ABNORMAL) CBC auto differential (09/02/2024 4:26 PM EDT) White Blood Count 10.6 4.8 - 10.8 X10*3/uL [facility] Red Blood Count 4.30 4.20 - 5.50 X10*6/uL [facility] Hemoglobin 12.0 12.0 - 16.0 g/dl [facility] Hematocrit 35.7(L) 37.0 - 47.0 % [facility] Mean Corpuscular Volume 83.0 80.0 - 98.0 fL [facility] Mean Corpuscular Hemoglobin 27.9 27.0 - 33.0 pg [facility] Mean Corpuscular HGB Conc 33.6 31.0 - 35.0 g/dl [facility] Red Cell Distribution Width 14.7 11.0 - 16.0 % [facility] Platelet Count 309 160 - 400 X10*3/uL [facility] Mean Platelet Volume 10.1 9.4 - 12.3 fL [facility] Neutrophils Percent Auto 58.3 45 - 73 % [facility] Imm Gran Pct Auto 0.4 0.0 - 0.4 % [facility] Lymphocytes Percent Auto 31.2 20 - 40 % [facility] Monocytes Percent Auto 8.6 2 - 11 % [facility] Eosinophils Percent Auto 1.2 0 - 4 % [facility] Basophils Percent Auto 0.3 0 - 2 % [facility] NRBC Pct Auto 0.0 0.0 - 0.2 /100WBC [facility] Neutrophils Absolute Auto 6.2 2.0 - 8.3 x10*3/uL [facility] Imm Gran Abs Auto 0.04(H) 0.00 - 0.03 X10*3/uL [facility] Lymphocytes Absolute Auto 3.3 1.2 - 4.9 X10*3/uL [facility] Monocytes Absolute Auto 0.9 0.1 - 1.2 X10*3/uL [facility] Eosinophils Absolute Auto 0.1 0.0 - 0.4 X10*3/uL [facility] Basophils Absolute Auto 0.0 0.0 - 0.2 X10*3/uL [facility] NRBC Abs Auto 0.000 0.0 - 0.012 X10*3/uL [facility] 09/02/2024 4:26 PM EDT 09/02/2024 4:30 PM EDT Generic External Data Provider LAB BLOOD ORDERAB LES Final Result Performing Organization Address [facility]/ZIP Co de Phone Number [facility] [address] [place] [phone] * (ABNORMAL) Partial Thromboplastin Time, Activated (APTT) (09/02/2024 4:26 PM EDT) Partial Thromboplastin Time 25.0(L) 26.0 - 36.8 SEC [facility] Comment:For information rega rding the monitoring of direct thrombininhibitors, please refer to Pharmacy. 09/02/2024 4:26 PM EDT 09/02/2024 4:30 PM EDT Generic External Data Provider LAB BLOOD ORDERAB LES Final Result Performing Organization Address [facility]/ZIP Co de Phone Number [facility] [address] [place] [phone] * (ABNORMAL) Prothrombin Time-INR (09/02/2024 4:26 PM EDT) Prothrombin Time 10.8(L) 10.9 - 12.4 SEC [facility] INTERNATIONAL NORM RATIO 0.9 0.9 - 1.1 [facility] Comment:INTERNATIONAL NORMAL IZED RATIO (INR) REFERENCE RANGES Reference RangeFor patients not on anticoagulant therapy: 0.9 - 1.1INR ranges for oral anticoagulanttherapy:For prevention and treatment of venous thrombosis and pulmonary embolism: 2.0 - 3.0For acute myocardial infarction with aspirin therapy: 2.0 - 3.0For acute myocardial infarction without aspirin therapy: 3.0 - 4.0For patients with mechanical prosthetic heart valves: 2.5 - 3.5 09/02/2024 4:26 PM EDT 09/02/2024 4:30 PM EDT Generic External Data Provider LAB BLOOD ORDERAB LES Final Result Performing Organization Address [facility] de Phone Number [facility] [address] [place] [phone] * (ABNORMAL) Magnesium (09/02/2024 4:26 PM EDT) Pathologist [facility] Magnesium 0.9(LL) 1.6 - 2.6 mg/dL [facility] Comment:Critical value for t est(s): MAGS Results called to and readback by: NEELAM Person calling: JO ANN Date: 09.02.24 Time:1700 09/02/2024 4:26 PM EDT 09/02/2024 4:30 PM EDT ESTmob External Data Provider LAB BLOOD ORDERAB LES Final Result Performing Organization Address [facility] de Phone Number [facility] [address] [place] [phone] * (ABNORMAL) Comprehensive Metabolic Panel (09/02/2024 4:26 PM EDT) Sodium 144 135 - 145 mmol/L [facility] Potassium 3.0(L) 3.3 - 5.1 mmol/L [facility] Chloride 101 96 - 108 mmol/L [facility] Carbon Dioxide 33(H) 22 - 29 mmol/L [facility] Anion Gap 13 12 - 20 [facility] Urea Nitrogen (BUN) 14 9 - 16 mg/dL [facility] Creatinine, Serum 0.85 0.5 - 1.4 mg/dL [facility] Creatinine Clr Calc Pharmacy 73.4 [facility] Comment:Provided height and weight: 154.94 cm,93.44 kg.eGFR (calculated from the MDRD study equation) and eCrCl(calculated from the Cockcroft-Gault equation) are based ondifferent parameters and may not yield comparable results.If eCrCl result is absurd, please check patient'sheight/weight. Estimated Glomerular Filt Rate >60 [facility] Comment:Chronic Kidney Disea se: Estimated GFR < 60 mL/min/1.07b0Klybxb Kidney Disease: Estimated GFR < 15 mL/min/1.73m2 Glucose 96 60 - 115 mg/dL [facility] Calcium 7.6(L) 8.4 - 10.2 mg/dL [facility] Bilirubin, Total 0.3 0.0 - 1.0 mg/dL [facility] Aspartate Amino Transferase 24 5 - 31 U/L [facility] Alanine Aminotransferase 33(H) 0 - 31 U/L [facility] Total Protein 6.8 6.5 - 8.0 g/dL [facility] Albumin Level 3.7 3.5 - 5.0 g/dL [facility] Alkaline Phosphatase 100 39 - 117 U/L [facility] 09/02/2024 4:26 PM EDT 09/02/2024 4:30 PM EDT us Generic External Data Provider LAB BLOOD ORDERAB LES Final Result [facility] [address] [place] [phone] * CT Head w/o Contrast (09/02/2024 4:11 PM EDT) Anatomical Region Laterality Modality Head, Neck Computed Tomogra phy 09/02/2024 4:11 PM EDT Narrative 09/02/2024 4:30 PM EDT ? [facility] ?[address] ?[place] [address] ? CT Scan Report ? Signed ? Patient: Flores,Ann-Marie N ?MR#: [id number] ?? 6 ? : 1965 ?Acct:[id number] ? Age/Sex: 58 / F ?ADM Date: 09/02/24 ? Loc: HO.ED ? Attending Dr: ? Ordering Physician: Edgard Gray ?? Date of Service: 09/02/24 ?? Procedure(s): CT head/brain wo IV con ?? Accession Number(s): [id number] ? cc: Edgard Gray; Leelee Yanes MD ? Report Number: ?? [id number]: Total DLP = ??657.00 mGy-cm ?? EXAMINATION: ?? CT HEAD WITHOUT CONTRAST ? CLINICAL INFORMATION: ?? Numbness and tingling. ? COMPARISON: ?? None available. ? TECHNIQUE: ?? Contiguous axial imaging was performed from the skull base to vertex ?? without intravenous administration of contrast. ? This CT examination was performed using dose optimization techniques as ?? appropriate, variously including the following: ?? *Automated exposure control ?? *Adjustment of mA and/or kV according to patient size (this includes ?? techniques or standardized protocols for targeted exams where dose is ?? matched to indication/reason for exam; i.e. extremities or head) ?? *Use of iterative reconstruction technique ? FINDINGS: ?? There is no evidence of intracranial hemorrhage or extra-axial fluid ?? collection. ?? There is no mass effect, or edema. No CT evidence of acute territorial ?? infarct. ?? Ventricles, sulci, and cisterns are normal in size and configuration ?? for patient age. No hydrocephalus. No midline shift. ?? Negative hyperdense MCA sign. Negative insular ribbon sign. ? There is a retrocerebellar arachnoid cyst present measuring 2.1 x 2.4 x ?? 3.4 cm (series 2, image 10). This is developmental. ? No significant white matter abnormalities. ?? Partial empty sella. ? Globes and orbital contents image normally. ?? No extracranial soft tissue abnormalities. ? The paranasal sinuses, mastoid air cells, and tympanic cavities are ?? normally aerated. ?? No suspicious bony abnormalities. There are no acute fractures evident. ?? There are moderate to severe degenerative changes in both TM joints. ? CT/CT head/brain wo IV con ?? IMPRESSION: ?? 1. No acute intracranial abnormality. ?? 2. Retrocerebellar arachnoid cyst. ?? 3. Moderate to severe degenerative changes in both TM joints. ? Electronically signed by: ??Sean Hernandez MD ??09/02/2024 04:27 PM EDT RP ? Dictated By: ?Sean Hernandez MD ? Signed By: ?<Electronically signed by Sean Hernandez MD in OV> ?09/02/247 ? DD/ 1611 ? TD/TT: 09/02/24 1621 ? [facility]: ? Procedure Note Klarissa, Image - 09/02/[address] [place] [id number] [address] Scan Report Signed Patient: Ann-Marie Flores [facility]#: [id number] 6 : 1965Acct:[id number] Age/Sex: 58 / FADM Date: 09/02/24 Loc: HO.ED Attending Dr: Ordering Physician: Edgard Gray Date of Service: 09/02/24 Procedure(s): CT head/brain wo IV con Accession Number(s): [id number] cc: Edgard Gray; Leelee Yanes MD Report Number: [id number]: Total DLP = 657.00 mGy-cm EXAMINATION: CT HEAD WITHOUT CONTRAST CLINICAL INFORMATION: Numbness and tingling. COMPARISON: None available. TECHNIQUE: Contiguous axial imaging was performed from the skull base to vertex without intravenous administration of contrast. This CT examination was performed using dose optimization techniques as appropriate, variously including the following: *Automated exposure control *Adjustment of mA and/or kV according to patient size (this includes techniques or standardized protocols for targeted exams where dose is matched to indication/reason for exam; i.e. extremities or head) *Use of iterative reconstruction technique FINDINGS: There is no evidence of intracranial hemorrhage or extra-axial fluid collection. There is no mass effect, or edema. No CT evidence of acute territorial infarct. Ventricles, sulci, and cisterns are normal in size and configuration for patient age. No hydrocephalus. No midline shift. Negative hyperdense MCA sign. Negative insular ribbon sign. 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 This is developmental. No significant white matter abnormalities. Partial empty sella. Globes and orbital contents image normally. No extracranial soft tissue abnormalities. The paranasal sinuses, mastoid air cells, and tympanic cavities are normally aerated. No suspicious bony abnormalities. There are no acute fractures evident. There are moderate to severe degenerative changes in both TM joints. CT/CT head/brain wo IV con IMPRESSION: 1. No acute intracranial abnormality. 2. Retrocerebellar arachnoid cyst. 3. Moderate to severe degenerative changes in both TM joints. Electronically signed by: Sean Hernandez MD 09/02/2024 04:27 PM EDT Dictated By: Sean Hernandez MD Signed By: <Electronically signed by Sean Hernandez MD in OV> 09/02/24 1627 DD/ 1611 TD/TT: 09/02/24 1621 [facility]: [facility] External Provider IMG CT PROCEDURES Final Result * XR Chest 1 View (09/02/2024 4:04 PM EDT) Anatomical Region Laterality Modality Chest Radiographic Kim ging 09/02/2024 4:04 PM EDT Narrative 09/02/2024 4:21 PM EDT ? [facility] ?[address] ?[place] [address] ?XRay Report ? Signed ? Patient: Flores,Ann-Marie N ?MR#: [id number] ?? 6 ? : 1965 ?Acct:[id number] ? Age/Sex: 58 / F ?ADM Date: 05/05/25 ? Loc: HO.ED ? Attending Dr: ? Ordering Physician: Edgard Gray ?? Date of Service: 09/02/24 ?? Procedure(s): XR chest 1V ?? Accession Number(s): [id number] ? cc: Edgard Gray; Leelee Yanes MD ? EXAMINATION: ?? XR CHEST ? CLINICAL INFORMATION: ?? chest tightness. Pneumonia? COMPARISON: ?? 06/19/2023. ? TECHNIQUE: ?? Frontal view of the chest was obtained. ? FINDINGS: ?? The cardiac, hilar, and mediastinal contours are normal. ? The lungs are clear bilaterally. No pneumothorax or effusion. ? No focal osseous or soft tissue abnormality. ? XR/XR chest 1V ?? IMPRESSION: ?? No active pulmonary disease. ? Electronically signed by: ??Sean Hernandez MD ??09/02/2024 04:18 PM EDT RP ? Dictated By: ?Sean Hernandez MD ? Signed By: ?<Electronically signed by Sean Hernandez MD in OV> ?09/02/24 1618 ? DD/ 1604 ? TD/TT: 09/02/24 1611 ? [facility]: ? Procedure Note Deepika Cyr - 09/02/[address] [address] XRay Report Signed Patient: Ann-Marie Flores NMR#: [id number] 6 : 1965Acct:[id number] Age/Sex: 58 / FADM Date: 09/02/24 Loc: .ED Attending Dr: Ordering Physician: Edgard Gray Date of Service: 09/02/24 Procedure(s): XR chest 1V Accession Number(s): [id number] cc: Edgard Gray; Leelee Yanes MD EXAMINATION: XR CHEST CLINICAL INFORMATION: chest tightness. Pneumonia? COMPARISON: 06/19/2023. TECHNIQUE: Frontal view of the chest was obtained. FINDINGS: The cardiac, hilar, and mediastinal contours are normal. The lungs are clear bilaterally. No pneumothorax or effusion. No focal osseous or soft tissue abnormality. XR/XR chest 1V IMPRESSION: No active pulmonary disease. Electronically signed by: Sean Hernandez MD 09/02/2024 04:18 PM EDT Dictated By: Sean Hernandez MD Signed By: <Electronically signed by Sean Hernandez MD in OV> 09/02/24 1618 DD/ 1604 TD/TT: 09/02/24 1611 [facility] External Provider IMG XR PROCEDURES Final Result * POCT Rapid Influenza B MALLOY ID NOW (08/24/2024 9:51 AM EDT) Influenza B Negative Negative, Indeterminate [facility] QC Media Lot # [id number] [facility] Lot# Expiration Date [facility] Swab 08/24/2024 9:51 AM EDT Result [facility] Russ Diez MD POINT OF CARE TEST EN TER/EDIT ORDERABLES Final Result Performing Organization Address City/[facility]/ZIP Co de Phone Number [facility] [address] [place] [phone] * POCT Rapid Influenza A MALLOY ID NOW (08/24/2024 9:51 AM EDT) Influenza A Negative Negative, Indeterminate [facility] QC Media Lot # [id number] [facility] Lot# Expiration Date [facility] Swab 08/24/2024 9:51 AM EDT Russ Diez MD POINT OF CARE TEST EN TER/EDIT ORDERABLES Final Result Performing Organization Address City/[facility]/ZIP Co de Phone Number [facility] [address] [place] [phone] * POCT Rapid Strep A MALLOY ID NOW (08/24/2024 9:42 AM EDT) Pathologist [facility] Rapid Strep A Screen Negative Negative, None Detected QC Media Lot # [id number] Lot# Expiration Date Swab 08/24/2024 9:42 AM EDT Russ Diez MD POINT OF CARE TEST EN TER/EDIT ORDERABLES Final Result * POCT Rapid Covid-19 BinaxNOW (08/24/2024 9:42 AM EDT) [facility] Rapid COVID Ag Negative QC Media Lot # [id number] Lot# Expiration Date [id number] Swab 08/24/2024 9:42 AM EDT Russ Diez MD POINT OF CARE TEST EN TER/EDIT ORDERABLES Final Result * Referral to Orthopaedic Surgery (07/09/2024) Leelee Yanes MD OUTPATIENT REFERRAL ALINA MCCORMICK Edited Result - Final * POCT ZACHARY-14 Urine Drug Screen (06/05/2024 11:40 AM EST) Urine Urine specimen obtained by clean catch procedure / Unknown 06/05/2024 11:40 AM EST Narrative Yoana Perry RN - 06/05/2024 11:40 AM EST UTOX cup Lot#[id number] Exp. 01/23/26 Internal Pass Control Negative for all substances Leelee Yanes MD POINT OF CARE TEST ENTER /EDIT ORDERABLES Final Result * BI Mammogram Screening Tomosynthesis Bilateral (05/03/2024 10:15 AM EST) Anatomical Region Laterality Modality Breast Bilateral Mammography 05/03/2024 10:1 5 AM EST Narrative 05/12/2024 8:49 AM EST ? [facility] ? [address] ?[place] [address] ? Mammography Report ? Signed with Addenda ? Patient: Flores,Ann-Marie N ?MR#: [id number] ?? 6 ? : 1965 ?Acct:[id number] ? Age/Sex: 58 / F ?ADM Date: //25 ? Loc: HO.MAMMO ? Attending Dr: Leelee Yanes MD ? Ordering Physician: Leelee Yanes MD ?Results: 2Be ?? nign Findings ? Date of Service: 05/03/24 ?Follow Up: 1 Year From Orig ?? inal Mammogram ? Procedure(s): MM tomosynthesis screening BI ?? Accession Number(s): [id number] ? cc: Leelee Yanes MD ?ADDENDUM ? [...] by Tricia German, DO in OV> ? 05/27/24 1527 ?? Addendum Cosigned By: ? DD/DT: 05/0307/23/1014 ? TD/TT: 05/03/2407/23/1024 ? EXAMINATION: ?? MM [...] DD/ 1015 ? TD/TT: 05/03/24 1025 ? [facility]: ? Procedure Note Klarissa, Image - 05/27/2024 [facility] [address] [place] [address] Mammography Report Signed with Vannesa Patient: Ann-Marie Flores NMR#: [id number] 6 : 1965Acct:[id number] Age/Sex: 58 / FADM Date: 05/03/24 Loc: KYLE Attending Dr: Leelee Yanes MD Ordering Physician: Leelee Yanes MDResults: 2Be nign Findings Date of Service: 05/03/24Follow Up: 1 Year From Orig inal Mammogram Procedure(s): MM tomosynthesis screening BI Accession Number(s): [id number] cc: Leelee Yanes MD ADDENDUM ADDENDUM #1 ADDENDUM: The current mammogram has been reviewed and remains BI-RADS as follows OVERALL ASSESSMENT: BI-RADS 2 - Benign Findings RECOMMENDATION: 1 year F/U Electronically signed by: Tricia German DO 05/27/2024 03:27 PM EST RP Addendum Dictated By: Tricia German DO Addendum [...] German DO in OV> 05/12/24 0847 DD/ 14 TD/TT: 05/03/241024 [facility]: Leelee Yanes MD [facility] BI PROCEDURES Edited Result - Final * POCT HGB A1C (02/20/2024 1:22 PM EDT) Hemoglobin A1C 5.7 4.0 - 6.0 % QC Media Lot # [id number] Lot# Expiration Date Blood 02/20/2024 1:22 PM EDT us Leelee Yanes MD POINT OF CARE TEST ENTER /EDIT ORDERABLES Final Result * Albumin, Random Urine W/Creatinine (05/18/2023 8:57 AM EST) Creatinine, Urine 309.29 mg/dL [facility] Microalbumin Urine 9.0 mg/L [facility] Microalbum Creatinine Ratio Ur 2.9 <30 ug/mg cr [facility] Comment:Albumin/Creatinine R atio Reference Ranges: Normal: < 30 ug/mg creatinine Microalbuminuria: 30 - 300 ug/mg creatinineClinical Albuminuria: > 300 ug/mg creatinine 05/18/2023 8:57 AM EST 05/18/2023 11:33 AM EST us Leelee Yanes MD LAB URINE ORDERABLES Fin al Result Performing Organization Address City/State/[facility] Co de Phone Number [facility] [address] [place] [phone] * (ABNORMAL) Lipid Panel with Reflex to Direct LDL (05/18/2023 8:51 AM EST) Triglycerides 278(H) <150 mg/dL [facility] Comment:Desirable Triglyceri de: less than 150 mg/dLBorderline High Triglyceride 150-199 mg/dLHigh Triglyceride: 200-499 mg/dLVery High Triglyceride: greater than or equal to 5OO mg/dL Cholesterol 168 <200 mg/dL [facility] Comment:Desirable Cholestero l: less than 200 mg/dLBorderline High Cholesterol: 200-239 mg/dLHigh Cholesterol: greater than 239 mg/dL LDL Cholesterol Calculated 77 <100 mg/dL [facility] Comment:Desirable LDL: less than 100 mg/dLNear Optimal/Above Optimal LDL: 110- 129 mg/dLBorderline High LDL: 130-159 mg/dLHigh LDL: 160-189 mg/dLVery High LDL: greater than or equal to 190 mg/dL HDL Cholesterol 36(L) >40 mg/dL [facility] Comment:Desirable HDL: great er than 40 mg/dL Note: This HDL assay may give artificially low results in patients with liver disease. Blood 05/18/2023 8:51 AM EST 05/18/2023 11:48 AM EST Leelee Yanes MD LAB BLOOD ORDERABLES Fin al Result [facility] [address] [place] [phone] from Last 3 Months or Most Recently Relevant to Health Maintenance Insurance [employer] Care Teams Marine Railway Operator Relationship Specialty Start Date End Date Leelee Yanes MD [address] [place] [address] PCP - General Family Medicine 06/11/20
--- OUTSIDE RECORDS SUMMARY | 2024-09-02 17:53 | XMS_ITS | Encounter Summary ---
Author Organization [employer] Address [address] [place] [address] [address] [place] [address] Care Team Providers Care Linux Developer Name Role Phone Leelee Yanes MD Primary Care Provider + Reason for Visit * Reason Comments Med Refill Encounter Details Date Type Department Care Team (Late Contact Info) Description 05/24/2022 Refill [facility] MEDICINE [address] [place] [address] Leelee Yanes MD [address] [place] [address] Acute bilateral low back pain, unspecified whether [...] Description 10/03/2024 11:30 AM EDT Clinical Support [facility] MEDICINE [address] [place] [address] Yoana Perry RN 12/06/2024 3:00 PM EDT Office Visit [facility] OPTOM[facility] [address] [place] [address] Sanchez, Karly, OD [address] [place] [address] documented as of this encounter Visit Diagnoses Diagnosis Acute bilateral low back pain, unspecified whether sciatica present documented in this encounter Care Teams Linux Developer Relationship Specialty Start Date End Date Leelee Yanes MD [address] [place] [phone] PCP - General Family Medicine 06/11/20 documented as of this encounter
--- OUTSIDE RECORDS SUMMARY | 2024-09-02 17:53 | XMS_ITS | Encounter Summary ---
Author Organization [employer] Address [address] [place] [address] [address] [place] [address] Care Team Providers Care Immigration Law Specialist Name Role Phone Leelee Yanes MD Primary Care Provider + Encounter Details Date Type Department Care Team (Late st Contact Info) Description 05/18/2022 Orders Only [facility] MEDICINE [address] [place] [address] Ghada Isidro LPN Social History Tobacco Use [...] 11:30 AM EDT Clinical Support [facility] MEDICINE [address] [place] [address] Yoana Perry RN 12/06/2024 3:00 PM EDT Office Visit [facility] OPTOMETRY [address] [place] [address] Karly Bradford, OD [address] [place] [address] documented as of this encounter Visit Diagnoses Not on filedocumented in this encounter Care Teams Immigration Law Specialist Relationship Specialty Start Date End Date Leelee Yanes MD [address] [place] [address] PCP - General Family Medicine 06/11/20 documented as of this encounter
--- OUTSIDE RECORDS SUMMARY | 2024-09-02 17:53 | XMS_ITS | Encounter Summary ---
Author Organization [employer] Address [address] [place] [address] 7t [place] [address] Care Team Providers Care Heel Sander Name Role Phone Leelee Yanes MD Primary Care Provider + Reason for Visit * Reason Comments Med Refill Encounter Details Date Type Department Care Team (Late Contact Info) Description 07/12/2022 Refill [facility] MEDICINE [address] [place] [address] [phone] Name, MD Charles [address] [place] [address] [phone] Acute bilateral low back pain, unspecified whether [...] Description 10/03/2024 11:30 AM EDT Clinical Support [facility] MEDICINE [address] [place] [address] [phone] Yoana Perry RN 12/06/2024 3:00 PM EDT Office Visit [facility] OPTOMETRY [address] [place] [address] Karly Bradford, ART [address] [place] [address] documented as of this encounter Visit Diagnoses Diagnosis Acute bilateral low back pain, unspecified whether sciatica present documented in this encounter Care Teams Heel Sander Relationship Specialty Start Date End Date Leelee Yanes MD [address] [place] [address] PCP - General Family Medicine 06/11/20 documented as of this encounter
--- OUTSIDE RECORDS SUMMARY | 2024-09-02 17:53 | XMS_ITS | Encounter Summary ---
Author Organization [employer] Address [address] [place] [address] 7t [place] [address] Care Team Providers Care Lift Supervisor Name Role Phone Leelee Yanes MD Primary Care Provider + Reason for Visit * Reason Comments Med Refill Encounter Details Date Type Department Care Team ([facility] st Contact Info) Description 05/22/2024 Refill [facility] MEDICINE [address] [place] [address] Leelee Yanes MD [address] [place] [address] Type 2 diabetes mellitus without complication, without long-term current use of insulin ([facility]) Social History Tobacco Use [...] Description 10/03/2024 11:30 AM EDT Clinical Support [facility] MEDICINE [address] [place] [address] Yoana Perry RN 12/06/2024 3:00 PM EDT Office Visit [facility] OPTOMETRY [address] [place] [address] Sanchez, Karly, OD [address] [place] [address] documented as of this encounter Visit Diagnoses Diagnosis Type 2 diabetes mellitus without complication, without long-term current use of insulin ([facility]) documented in this encounter Additional Health Concerns Assessment Noted Time PHQ-9 Depression Total Score: 16 024 9:59 AM EST documented as of this encounter Care Teams Lift Supervisor Relationship Specialty Start Date End Date Leelee Yanes MD [address] [place] [address] PCP - General Family Medicine 06/11/20 documented as of this encounter
--- OUTSIDE RECORDS SUMMARY | 2024-09-02 17:53 | XMS_ITS | Encounter Summary ---
Author Organization [employer] Address [address] [place] [address] 7[address] [place] [address] Care Team Providers Care Fire Safety Manager Name Role Phone Leelee Yanes MD Primary Care Provider + Reason for Visit * Reason Comments Med Refill Encounter Details Date Type Department Care Team (Late st Contact Info) Description 06/25/2022 Refill [facility] MEDICINE [address] [place] [phone] Marbella Carlin DO [address] [place] [address] Acute bilateral low back pain, unspecified whether [...] Clinical Support [facility] MEDICINE [address] [place] [phone] Yoana Perry RN 12/06/2024 3:00 PM EDT Office Visit [facility] OPTOMETRY [address] [place] [address] Karly Bradford, ART [address] [place] [address] documented as of this encounter Visit Diagnoses Diagnosis Acute bilateral low back pain, unspecified whether sciatica present documented in this encounter Care Teams Fire Safety Manager Relationship Specialty Start Date End Date Leelee Yanes MD [address] [place] [address] PCP - General Family Medicine 06/11/20 documented as of this encounter
--- OUTSIDE RECORDS SUMMARY | 2024-09-02 17:53 | XMS_ITS | Encounter Summary ---
Author Organization [employer] Address [address] [place] [address] 7t [place] [address] Care Team Providers Care Automated Equipment Engineer Technician Name Role Phone Leelee Yanes MD Primary Care Provider + Reason for Visit * Reason Onset Date Comments Med Refill 05/24/2024 Encounter Details Date Type Department Care Team ([facility] st Contact Info) Description 05/24/2024 Telephone [facility] MEDICINE [address] [place], [place] [phone] Leelee Yanes MD [address] [place], [place] [phone] Med Refill Social History Tobacco Use Types [...] MG/0.5ML solution pen-injector To be sent to: [facility] [place], [place] - [address] [facility] PT DOES NOT HAVE ANY MEDICATION LEFT documented in this encounter Plan of Treatment Upcoming Encounters Date Type Department Care Team (Late st Contact Info) Description 10/03/2024 11:30 AM EDT Clinical Support [facility] MEDICINE [address] [place] [address] Yoana Perry RN 12/06/2024 3:00 PM EDT Office Visit [facility] OPTOMETRY [address] [place] [address] Karly Bradford, OD [address] [place] [address] documented as of this encounter Visit Diagnoses Not on filedocumented in this encounter Additional Health Concerns Assessment Noted Time PHQ-9 Depression Total Score: 16 024 9:59 AM EST documented as of this encounter Care Teams Automated Equipment Engineer Technician Relationship Specialty Start Date End Date Leelee Yanes MD [address] [place] [address] PCP - General Family Medicine 06/11/20 documented as of this encounter
--- OUTSIDE RECORDS SUMMARY | 2024-09-02 17:53 | XMS_ITS | Encounter Summary ---
Author Organization [employer] Address [address] 7t [place] [address] Care Team Providers Care Human Resources Assistant Name Role Phone Leelee Yanes MD Primary Care Provider + Reason for Visit * Reason Comments Med Refill Encounter Details Date Type Department Care Team (Late st Contact Info) Description 06/06/2024 Refill [facility] MED & PEDS [address] [place], [place] [phone] Leelee Yanes MD [address] [place] [address] Lumbar radiculopathy; Primary osteoarthritis of left knee; [...] Clinical Support [facility] MEDICINE [address] [place] [address] Yoana Perry RN 12/06/2024 3:00 PM EDT Office Visit [facility] OPTOMETRY [address] [place] [address] Sanchez, Karly, OD [address] [place] [address] documented as of this encounter Visit Diagnoses Diagnosis Lumbar radiculopathy Thoracic or lumbosacral neuritis or radiculitis, unspecified Primary osteoarthritis of left knee Acute bilateral low back pain, unspecified whether sciatica present documented in this encounter Additional Health Concerns Assessment Noted Time PHQ-9 Depression Total Score: 16 024 9:59 AM EST documented as of this encounter Care Teams Human Resources Assistant Relationship Specialty Start Date End Date Leelee Yanes MD [address] [place] [address] PCP - General Family Medicine 06/11/20 documented as of this encounter
--- OUTSIDE RECORDS SUMMARY | 2024-09-02 17:53 | XMS_ITS | Encounter Summary ---
Author Organization [employer] Address [address] [place] [address] [address] [place] [address] Care Team Providers Care Electrical Repairer Name Role Phone Leelee Yanes MD Primary Care Provider + Reason for Visit * Reason Comments Med Refill Encounter Details Date Type Department Care Team ([facility] st Contact Info) Description 03/15/2024 Refill [facility] MEDICINE [address] [place] [address] Leelee Yanes MD [address] [place] [address] Type 2 diabetes mellitus without complication, without long-term current use of insulin ([facility]) Social History Tobacco Use Types [...] 11:30 AM EDT Clinical Support [facility] MEDICINE [address] [place] [address] Yoana Perry RN 12/06/2024 3:00 PM EDT Office Visit [facility] OPTOMETRY [address] [place] [address] Sanchez, Karly, OD [address] [place] [address] documented as of this encounter Visit Diagnoses Diagnosis Type 2 diabetes mellitus without complication, without long-term current use of insulin ([facility]) documented in this encounter Additional Health Concerns Assessment Noted Time PHQ-9 Depression Total Score: 16 024 9:59 AM EST documented as of this encounter Care Teams Electrical Repairer Relationship Specialty Start Date End Date Leelee Yanes MD [address] [place] [address] PCP - General Family Medicine 06/11/20 documented as of this encounter
--- OUTSIDE RECORDS SUMMARY | 2024-09-02 17:53 | XMS_ITS | Encounter Summary ---
Author Organization [employer] Address [address] [place] [address] 7t [place] [address] Care Team Providers Care Collator Hand Name Role Phone Leelee Yanes MD Primary Care Provider + Encounter Details Date Type Department Care Team (Late st Contact Info) Description 05/03/2022 Orders Only [facility] MED & PEDS [address] [place], [place] [phone] Marbella Munoz LPN Social History Tobacco Use [...] 11:30 AM EDT Clinical Support [facility] MEDICINE [address] [place] [address] Yoana Perry RN 12/06/2024 3:00 PM EDT Office Visit [facility] OPTOMETRY [address] [place] [address] Karly Bradford OD [address] [place] [address] documented as of this encounter Visit Diagnoses Not on filedocumented in this encounter Care Teams Collator Hand Relationship Specialty Start Date End Date Leelee Yanes MD [address] [place] [address] PCP - General Family Medicine 06/11/20 documented as of this encounter
--- OUTSIDE RECORDS SUMMARY | 2024-09-02 17:53 | XMS_ITS ---
Author Organization [facility] Address [address] [place] [address] Care Team Providers Care Roll Forming Supervisor Name Role Phone Farzana KELLY, Yoel Primary Care Provider Unavail able Shay Araya Unavailable [phone] Allergies Allergen (clinical drug ingredient) Drug/Non Drug Allergy documented on EMR Reaction Allergy Type Onset Date Status Rocephin Unknown Drug Allergy Active Keflex Unknown Drug Allergy Active sulfamethoxazole / trimethoprim Bactrim Unknown Drug Allergy Active REASON FOR VISIT Patient presents today for a colon screening Medications Medication SIG (Take, Route, Frequency, Duration) Notes Start Date End Date Status DuoNeb Active Saline 0.65 % 2 drops in each nost ril as needed Nasally every 2 hrs Active Patanol 0.1 % 1 drop into affected eye Ophthalmic Twice a day Active Citalopram Hydrobromide 40 MG 0.5 tablet Orally Once a day Active buPROPion HCl ER (XL) 300 MG 1 tablet in the morning Orally Once a day Active Atorvastatin Calcium 40 MG TOME 1 TABLETA POR V A ORAL TODOS LOS D Oral for 90 Days Active Gabapentin 100 MG Orally Ac tive Pain & Fever Extra Strength 500 MG 1 tablet as needed Orally every 6 hrs Active EpiPen 2-Clayton 0.3 MG/0.3ML Injection Active Advair Diskus 250-50 MCG/DOSE 1 puff Inhalation Twice a day Active Montelukast Sodium 10 MG TOME TAYLOR TABLETA TODOS LOS D AL ACOSTARSE Oral for 90 Days Active Pantoprazole Sodium 40 MG TOME 1 TABLETA POR V A ORAL TODOS LOS D EN LA MA YOEL Oral for 90 Days Active Loratadine 10 MG TOME 1 TABLETA POR V A ORAL TODOS LOS D Oral for 90 Days Active Citalopram Hydrobromide 40 MG TOME TAYLOR TABLETA TODOS LOS D EN LA MA YOEL Oral for 30 Days Active Mupirocin 2 % APLIQUE AL KATHY AFECT ADA TODOS LOS D POR 10 D External for 10 Days Active traMADol HCl 50 MG TAKE 1 TABLET EVERY TWELVE HOURS NEEDED FOR SEVERE PAIN Oral for 28 Days Active Trulicity 1.5 MG/0.5ML INJECT ONE PEN (= 1.5MG) SUBCUTANEOUSLY ONCE A WEEK DIRECTED Subcutaneous for 28 Days Active Ketotifen Fumarate 0.035 % PONGA TAYLOR GOTA EN NICOLE AFECTADO DOS VECES AL JOSÉ LUIS Ophthalmic for 19 Days Active Ipratropium [place] 0.03 % INHALE 1-2 SPRAYS NASALLY NEEDED UP TO 3 TIMES A DAY. Nasal for 30 Days Active Daily-Royal Multivitamin - TAKE 1 TABLET BY MOUTH WITH FOOD Oral for 90 Days Active Colyte w Flavor Packs 240 GM as directed Orally as directed for 1 day(s) 04/05/2014 Active Atorvastatin Calcium 80 MG 1 tablet Orally Once a day Active amLODIPine Besylate 10 MG 1 tablet Orally Once a day Active Vitamin D 1000 UNIT 1 tablet Orally Once a day Active LORazepam 0.5 MG 1 tablet as needed O rally Twice a day Active Loratadine 10 MG 1 tablet Orally Once a day Active Mupirocin 2 % 1 application to aff ected area Externally Three times a day Active Mag64 535 (64 Mg) MG 1 tablet Orally Twi ce a day Active Micardis 80 MG 1 tablet Orally Once a day Active traMADol HCl 50 MG 1 tablet as needed O rally every 6 hrs Active Multivitamin Orally Active Ibuprofen 600 MG 1 tablet Orally Thre e times a day Active Doxycycline Hyclate 50 MG 2 capsules Orally Once a day Active Hibiclens 4 % Externally Activ e Zafirlukast 20 MG 1 tablet Orally Twic e a day Active Fluticasone Propionate 50 MCG/ACT 1 spray in each nostril Nasally Once a day Active Zolpidem Tartrate 10 MG 1 tablet at bedt myrna as needed Orally Once a day Active ProAir HFA 108 (90 Base) MCG/ACT 2 puffs as needed Inhalation every 4 hrs Active PriLOSEC OTC 20 MG 1 tablet Orally Once a day Not-Taking Furosemide 20 MG 1 tablet Orally Once a day Active Immunizations Vaccine Route Administration Date Status Comme nts Influenza Unknown 08/07/2024 Refused Problems Problem Type SNOMED Code ICD Code Onset Dates Problem Status W/U Status Risk Notes Problem Colon cancer screening (Z12.11) Active confirmed Problem Gastroesophageal reflux disease (039814620) GERD (gastroesopha geal reflux disease) (K21.9) Active confirmed Problem Dysphagia (81589876) Dysphagia (R13.10) Active confirmed Vital Signs Temperature 97.7 degrees Fahrenheit 08/08/19 25 Blood pressure systolic 001 mm Hg 08/08/19 25 Blood pressure diastolic 01 mm Hg 025 Height 62 in 08/07/2024 Weight 209.6 lbs 08/07/2024 BMI 38.33 kg/m2 08/07/2024 Procedures Procedure Date Ordered Date Performed Result Body Sit e UPPER GI ENDOSCOPY BALLOOON DILATION OF ESOPH 08/07/2024 N/A COLONOSCOPY 08/07/2024 N/A Encounters Encounter Location Date Provider Diagnosis [facility] [address] [place] [address] 08/07/2024 Shay Araya Colon cancer screening Z12.11 ; Dysphagia R13.10 and GERD (gastroesophageal reflux disease) K21.9 Assessments Encounter Date Diagnosis (ICD Code) Assessment Notes Treatment Notes Treatment Clinical Notes Section Notes 08/07/2024 Colon cancer screening (ICD-10 - Z12.11) Overall, Ann-Marie appears well and is not having any new or worrisome GI complaints other than some occasional dysphagia. This does not sound particularly worrisome given her good clinical appearance. However, I did advise her that it would be reasonable for her to undergo an upper endoscopy for evaluation of these occasional symptoms so as to rule out any type of stricture or esophageal ring that might require balloon dilation. We did review that she might also be having episodes of esophageal spasm and I did advise her to certainly continue her pantoprazole in regard to preventing any acid reflux. I did recommend a follow-up colonoscopy for screening given her last exam being just over 10 years ago. We did review the rationale for that in regard to colon cancer prevention. Full consent has been obtained from her for both procedures, including risks of bleeding and perforation. The procedures will be done with monitored anesthesia care. She was given the below instructions regarding adjustment of her medications for the procedure. Of note, there will be a manager medical device present on the day of the procedure to review things with Ann-Marie again. Ann-Marie was comfortable with this plan. Thank you again for allowing me to participate in Ann-Marie's care. I shall continue to keep you advised of her progress. 08/07/2024 Dysphagia (ICD-10 - R13.10) Overall, Ann-Marie appears well and is not having any new or worrisome GI complaints other than some occasional dysphagia. This does not sound particularly worrisome given her good clinical appearance. However, I did advise her that it would be reasonable for her to undergo an upper endoscopy for evaluation of these occasional symptoms so as to rule out any type of stricture or esophageal ring that might require balloon dilation. We did review that she might also be having episodes of esophageal spasm and I did advise her to certainly continue her pantoprazole in regard to preventing any acid reflux. I did recommend a follow-up colonoscopy for screening given her last exam being just over 10 years ago. We did review the rationale for that in regard to colon cancer prevention. Full consent has been obtained from her for both procedures, including risks of bleeding and perforation. The procedures will be done with monitored anesthesia care. She was given the below instructions regarding adjustment of her medications for the procedure. Of note, there will be a manager medical device present on the day of the procedure to review things with Ann-Marie again. Ann-Marie was comfortable with this plan. Thank you again for allowing me to participate in Ann-Marie's care. I shall continue to keep you advised of her progress. 08/07/2024 GERD (gastroesophag eal reflux disease) (ICD-10 - K21.9) Overall, Ann-Marie appears well and is not having any new or worrisome GI complaints other than some occasional dysphagia. This does not sound particularly worrisome given her good clinical appearance. However, I did advise her that it would be reasonable for her to undergo an upper endoscopy for evaluation of these occasional symptoms so as to rule out any type of stricture or esophageal ring that might require balloon dilation. We did review that she might also be having episodes of esophageal spasm and I did advise her to certainly continue her pantoprazole in regard to preventing any acid reflux. I did recommend a follow-up colonoscopy for screening given her last exam being just over 10 years ago. We did review the rationale for that in regard to colon cancer prevention. Full consent has been obtained from her for both procedures, including risks of bleeding and perforation. The procedures will be done with monitored anesthesia care. She was given the below instructions regarding adjustment of her medications for the procedure. Of note, there will be a manager medical device present on the day of the procedure to review things with Ann-Marie again. Ann-Marie was comfortable with this plan. Thank you again for allowing me to participate in Ann-Marie's care. I shall continue to keep you advised of her progress. Plan Of Treatment Pending Test Test Name Order Date UPPER GI ENDOSCOPY BALLOOON DILATION OF ESOPH 08/07/2024 COLONOSCOPY 08/07/2024 Next Appt Details Follow Up: prn, Reason: Provider Name:Shay Araya , 11/15/2024 11:00:00 AM, [address] [place] [address], [id number], Progress Notes * HEAVENLY HARRISA NDOB:1965 (58 yo F)Acc No.[id number]:08/07/2024 Progress Notes Patient:?ANN-MARIE HARRIS N Provider:?Shay Araya MD :1965???Age:58 Y???Sex:Female D ate:08/07/2024 [id number] Pcp:Yoel Yanes MD Subjective: * Chief Complaints: * ???Patient presents today fo r a colon screening * HPI: ???incontinence:? I saw Ann-Marie in the office today for evaluation of colorectal cancer screening. We were able to communicate effectively with her limited Luxembourger and my limited Nigerien, as well as my office staff member who is bilingual. I last saw Ann-Marie in June 2014, at which time she underwent a negative screening colonoscopy. She describes that she presently feels well from a GI standpoint. She enjoys a good appetite and denies any significant heartburn on her daily pantoprazole. She denies any early satiety, nausea, nor vomiting. However, she does describe occasional dysphagia to solid food but does not have to regurgitate as it will eventually pass within a few minutes. She denies any abdominal pain, jaundice, nor any unintentional weight loss. She describes that her bowel movements have been regular and without any sign of hematochezia nor melena. She denies any known family history of colorectal cancer. Since I last saw her she did undergo a gastric sleeve bariatric operation with Dr. Blanco in 2015 or 2016. She did lose a lot of weight initially but then gained a lot of it back during the pandemic. However she has now lost about 50 pounds again by trying to diet and using Trulicity. * ROS:?General/Constitutional:?Change in appetite?denies.?Chills?denies.?Fatigue?denies.?Ophthalmologic:?Comments?all negative.?ENT:?Comments?all negative.?Respiratory:?hemoptysis?denies.?Cough?denies.?Cardiovascular:?Chest pain?denies.?Orthopnea?denies.?Gastrointestinal:?Comments?See HPI for details.?Genitourinary:?Hematuria?denies.?Dysuria?denies.?Musculoskeletal:?Painful joints?Back and feet pain.?Weakness?denies.?Skin:?Itching?denies.?Rash?denies.?Neurologic:?Headache?denies.?Seizures?denies.?Psychiatric:?Comments?Per PMH.? * Medical History:? * Surgical History:? Open cholecystectomy with Dr. 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 Blanco 2015 * Hospitalization/Major Diagno stic Procedure:?No Hospitalization History. * Family History:?Father: dece ased, diagnosed with HTN (hypertension).?Mother: , diagnosed with HTN (hypertension).? No colon cancer.? No family history of liver cancer.? Mother had pancreatic cancer. * Social History:?Tobacco Use:?Tobacco Use/Smoking?Are you a: nonsmoker.?Drugs/Alcohol:?Alcohol Screen?Points: 0, Interpretation: Negative.?Miscellaneous:?Marital status: single. Occupation: disabled. ???Nonsmoker; no sig alcohol. * Medications:?TakingAdvair Di skus 250-50 MCG/DOSE Aerosol Powder Breath Activated 1 puff Inhalation Twice a day EpiPen 2-Clayton 0.3 MG/0.3ML Solution Auto-injector Injection Pain & Fever Extra Strength 500 MG Tablet 1 tablet as needed Orally every 6 hrs Gabapentin 100 MG Capsule Orally Patanol 0.1 % Solution 1 drop into affected eye Ophthalmic Twice a day Saline 0.65 % Solution 2 drops in each nostril as needed Nasally every 2 hrs DuoNeb buPROPion HCl ER (XL) 300 MG Tablet Extended Release 24 Hour 1 tablet in the morning Orally Once a day Citalopram Hydrobromide 40 MG Tablet 0.5 tablet Orally Once a day Zolpidem Tartrate 10 MG Tablet 1 tablet at bedtime as needed Orally Once a day Fluticasone Propionate 50 MCG/ACT Suspension 1 spray in each nostril Nasally Once a day Furosemide 20 MG Tablet 1 tablet Orally Once a day ProAir HFA 108 (90 Base) MCG/ACT Aerosol Solution 2 puffs as needed Inhalation every 4 hrs Hibiclens 4 % Liquid Externally Doxycycline Hyclate 50 MG Capsule 2 capsules Orally Once a day Ibuprofen 600 MG Tablet 1 tablet Orally Three times a day Multivitamin Liquid Orally Zafirlukast 20 MG Tablet 1 tablet Orally Twice a day Mag64 535 (64 Mg) MG Tablet Extended Release 1 tablet Orally Twice a day Mupirocin 2 % Ointment 1 application to affected area Externally Three times a day Loratadine 10 MG Tablet 1 tablet Orally Once a day traMADol HCl 50 MG Tablet 1 tablet as needed Orally every 6 hrs Micardis 80 MG Tablet 1 tablet Orally Once a day LORazepam 0.5 MG Tablet 1 tablet as needed Orally Twice a day Vitamin D 1000 UNIT Tablet 1 tablet Orally Once a day amLODIPine Besylate 10 MG Tablet 1 tablet Orally Once a day Atorvastatin Calcium 80 MG Tablet 1 tablet Orally Once a day Colyte w Flavor Packs 240 GM Solution Reconstituted as directed Orally as directed Ipratropium [place] 0.03 % Solution INHALE 1-2 SPRAYS NASALLY NEEDED UP TO 3 TIMES A DAY. Nasal Ketotifen Fumarate 0.035 % Solution PONGA TAYLOR GOTA EN NICOLE AFECTADO DOS VECES AL JOSÉ LUIS Ophthalmic Trulicity 1.5 MG/0.5ML Solution Auto-injector INJECT ONE PEN (=1.5MG) SUBCUTANEOUSLY ONCE A WEEK DIRECTED Subcutaneous traMADol HCl 50 MG Tablet TAKE 1 TABLET EVERY TWELVE HOURS NEEDED FOR SEVERE PAIN Oral Daily-Royal Multivitamin - Tablet TAKE 1 TABLET BY MOUTH WITH FOOD Oral Mupirocin 2 % Ointment APLIQUE AL KATHY AFECTADA TODOS LOS D POR 10 D External Citalopram Hydrobromide 40 MG Tablet TOME TAYLOR TABLETA TODOS LOS D EN LA MA YOEL Oral Loratadine 10 MG Tablet TOME 1 TABLETA POR V A ORAL TODOS LOS D Oral Pantoprazole Sodium 40 MG Tablet Delayed Release TOME 1 TABLETA POR V A ORAL TODOS LOS D EN LA MA YOEL Oral Montelukast Sodium 10 MG Tablet TOME TAYLOR TABLETA TODOS LOS D AL ACOSTARSE Oral Atorvastatin Calcium 40 MG Tablet TOME 1 TABLETA POR V A ORAL TODOS LOS D Oral Taking Advair Diskus 250-50 MCG/DOSE Aerosol Powder Breath Activated 1 puff Inhalation Twice a day Taking EpiPen 2-Clayton 0.3 MG/0.3ML Solution Auto-injector Injection Taking Pain & Fever Extra Strength 500 MG Tablet 1 tablet as needed Orally every 6 hrs Taking Gabapentin 100 MG Capsule Orally Taking Patanol 0.1 % Solution 1 drop into affected eye Ophthalmic Twice a day Taking Saline 0.65 % Solution 2 drops in each nostril as needed Nasally every 2 hrs Taking DuoNeb Taking buPROPion HCl ER (XL) 300 MG Tablet Extended Release 24 Hour 1 tablet in the morning Orally Once a day Taking Citalopram Hydrobromide 40 MG Tablet 0.5 tablet Orally Once a day Taking Zolpidem Tartrate 10 MG Tablet 1 tablet at bedtime as needed Orally Once a day Taking Fluticasone Propionate 50 MCG/ACT Suspension 1 spray in each nostril Nasally Once a day Taking Furosemide 20 MG Tablet 1 tablet Orally Once a day Taking ProAir HFA 108 (90 Base) MCG/ACT Aerosol Solution 2 puffs as needed Inhalation every 4 hrs Taking Hibiclens 4 % Liquid Externally Taking Doxycycline Hyclate 50 MG Capsule 2 capsules Orally Once a day Taking Ibuprofen 600 MG Tablet 1 tablet Orally Three times a day Taking Multivitamin Liquid Orally Taking Zafirlukast 20 MG Tablet 1 tablet Orally Twice a day Taking Mag64 535 (64 Mg) MG Tablet Extended Release 1 tablet Orally Twice a day Taking Mupirocin 2 % Ointment 1 application to affected area Externally Three times a day Taking Loratadine 10 MG Tablet 1 tablet Orally Once a day Taking traMADol HCl 50 MG Tablet 1 tablet as needed Orally every 6 hrs Taking Micardis 80 MG Tablet 1 tablet Orally Once a day Taking LORazepam 0.5 MG Tablet 1 tablet as needed Orally Twice a day Taking Vitamin D 1000 UNIT Tablet 1 tablet Orally Once a day Taking amLODIPine Besylate 10 MG Tablet 1 tablet Orally Once a day Taking Atorvastatin Calcium 80 MG Tablet 1 tablet Orally Once a day Taking Colyte w Flavor Packs 240 GM Solution Reconstituted as directed Orally as directed Taking Ipratropium [place] 0.03 % Solution INHALE 1-2 SPRAYS NASALLY NEEDED UP TO 3 TIMES A DAY. Nasal Taking Ketotifen Fumarate 0.035 % Solution PONGA TAYLOR GOTA EN NICOLE AFECTADO DOS VECES AL JOSÉ LUIS Ophthalmic Taking Trulicity 1.5 MG/0.5ML Solution Auto-injector INJECT ONE PEN (=1.5MG) SUBCUTANEOUSLY ONCE A WEEK DIRECTED Subcutaneous Taking traMADol HCl 50 MG Tablet TAKE 1 TABLET EVERY TWELVE HOURS NEEDED FOR SEVERE PAIN Oral Taking Daily-Royal Multivitamin - Tablet TAKE 1 TABLET BY MOUTH WITH FOOD Oral Taking Mupirocin 2 % Ointment APLIQUE AL KATHY AFECTADA TODOS LOS D POR 10 D External Taking Citalopram Hydrobromide 40 MG Tablet TOME TAYLOR TABLETA TODOS LOS D EN LA MA YOEL Oral Taking Loratadine 10 MG Tablet TOME 1 TABLETA POR V A ORAL TODOS LOS D Oral Taking Pantoprazole Sodium 40 MG Tablet Delayed Release TOME 1 TABLETA POR V A ORAL TODOS LOS D EN LA MA YOEL Oral Taking Montelukast Sodium 10 MG Tablet TOME TAYLOR TABLETA TODOS LOS D AL ACOSTARSE Oral Taking Atorvastatin Calcium 40 MG Tablet TOME 1 TABLETA POR V A ORAL TODOS LOS D Oral Not-Taking/PRNPriLOSEC OTC 20 MG Tablet Delayed Release 1 tablet Orally Once a day Medication List reviewed and reconciled with the patientNot-Taking/PRN PriLOSEC OTC 20 MG Tablet Delayed Release 1 tablet Orally Once a day Medication List reviewed and reconciled with the patient * Allergies:?KeflexBactrimRoce phinyes[Allergies Verified] Objective: * Vitals:?Wt: 209.6 lbs, Ht: 6 2 in, BMI:38.33Index, BP: 001/01 mm Hg, Temp: 97.7, Wt-k.07. * Examination: ???General Examination: ?GENERAL APPEARANCE:?pleasant, well nourished, well developed, in no acute distress.?EYES:?sclera non-icteric.?ORAL CAVITY:?mucosa moist.?NECK/THYROID:?no cervical lymphadenopathy, neck supple.?SKIN:?nonjaundiced, no spider angiomata.?HEART:?S1, S2 normal.?LUNGS:?clear to auscultation bilaterally.?ABDOMEN:?normal bowel sounds, no guarding or rigidity, no guarding or rigidity, no masses palpable, soft, nontender, nondistended.?EXTREMITIES:?no edema.?NEUROLOGIC:?alert and oriented.? Assessment: * Assessment: 1.?Dysphagia - R13.10 (Prima ry)???2.?Colon cancer screening - Z12.11???3.?GERD (gastroesophageal reflux disease) - K21.9??? Overall, Ann-Marie appears well and is not having any new or worrisome GI complaints other than some occasional dysphagia. This does not sound particularly worrisome given her good clinical appearance. However, I did advise her that it would be reasonable for her to undergo an upper endoscopy for evaluation of these occasional symptoms so as to rule out any type of stricture or esophageal ring that might require balloon dilation. We did review that she might also be having episodes of esophageal spasm and I did advise her to certainly continue her pantoprazole in regard to preventing any acid reflux. I did recommend a follow-up colonoscopy for screening given her last exam being just over 10 years ago. We did review the rationale for that in regard to colon cancer prevention. Full consent has been obtained from her for both procedures, including risks of bleeding and perforation. The procedures will be done with monitored anesthesia care. She was given the below instructions regarding adjustment of her medications for the procedure. Of note, there will be a manager medical device present on the day of the procedure to review things with Ann-Marie again. Ann-Marie was comfortable with this plan. Thank you again for allowing me to participate in Ann-Marie's care. I shall continue to keep you advised of her progress. Plan: * Treatment: 2.?Colon cancer screening?Procedure: COLONOSCOPY* Do not take the Trulicity fo r at least 7 days before the procedures.Do not take the Furosemide the day before or on the day of the procedures.Scheduled at [facility] [place] [place] on Monday11-15-24 at 10:00 stop Trulicity 7 days prior and No Furosemide the day before or day of the procedure Allyson will call the patient to go over the instuction and mail her the prep in Nigerien. 3.?GERD (gastroesophageal reflux disease)?Procedure: UPPER GI ENDOSCOPY BALLOOON DILATION OF ESOPH* with MAC Scheduled at [facility] [place] on Monday11-15-24 at 11:00 stop Trulicity 7 days prior and No Furosemide the day before or day of the procedure Allyson will call the patient to go over the instuction and mail her the prep in Nigerien. * Immunizations:? Influenza (Not administered - Refused: Patient decision) * Procedure Codes:?78405 DIAGN OSTIC [id number] ESOPHAGUS [id number] COLORECTAL CA SCREEN DOC [id number] TOBACCO [id number] BP SCR NOT PRFRM REC REASON [id number] RCMND FLW-UP 10 YRS DOCD * Preventive Medicine:? ??Counseling:?Care goal follow-up plan:?Above Normal BMI Follow-up?Dietary management education, guidance, and counseling,?BMI management provided?Yes.? * Follow Up:?prn * * Sign off status: Completed true * Provider:?Shay Araya MD Date:? 025 Generated for Gerard corona/[place] on:?09/02/2024 05:53 PM EDT History and Physical Notes * Examination Category Sub-Category Detail Notes Category Not es General Examination GENERAL APPEARANCE: pleasant , well nourished, well developed, in no acute distress HEAD: EYES: sclera non-icteric EARS: NOSE: THROAT: NECK/THYROID: no cervical lymphade nopathy, neck supple HEART: S1, S2 normal CHEST: LUNGS: clear to auscultatio n bilaterally ABDOMEN: normal bowel sounds, no guarding or rigidity, no guarding or rigidity, no masses palpable, soft, nontender, nondistended NEUROLOGIC: alert and oriented SKIN: nonjaundiced, no spi martínez angiomata EXTREMITIES: no edema PERIPHERAL PULSES: BACK: BREASTS: MUSCULOSKELETAL: MALE GENITOURINARY: LYMPH NODES: RECTAL EXAM: FEMALE GENITOURINARY: ORAL CAVITY: mucosa moist
--- OUTSIDE RECORDS SUMMARY | 2024-09-02 17:53 | XMS_ITS | Data Portability ---
Author Organization [place] [facility], Allergy Address [address] [place] [phone] Assessment Encounter Date Assessment Date Assessment LastModified [...] Address Organization Details Recorded Time Chronic hoarseness 4913944700278 Active 2023 YIN DE SANTIAGO MD 100 [facility],[address], [address] 09:20:04 Feeling of lump in throat 336746101 Active 2023 YIN DE SANTIAGO MD 100 [facility] 100, [place], [address], [facility] 4 09:20:10 Obstructive sleep apnea syndrome 30893569 Active 2023 YIN DE SANTIAGO MD [address] [address], [place], [phone], [facility] [place] 4 09:20:14 Moderate persistent asthma 277088567 Active 2023 YIN DE SANTIAGO MD [address] [address], [place], [address], [facility] [place] 4 09:20:21 Problem Notes None recorded. Procedures Surgical History Date Name Laterality Status Provider Name and Address Organization Details Recorded Time 4 FOL_Reflux_J MS completed YIN REEVES MD [address] [address], [place], [address], [facility] [place] 11/28/2023 09:22:24 Gastric bypass for obesity completed Dustin Francis [place] [facility] [place] 11/28/2023 09:27:15 Imaging Results None recorded. Procedure [...] Updated DateTime 11/28/2023 154.94 cm 39.9 kg/m2 01680.99 g Dustin Francis [place] - [facility] 11/28/2023 09:01:32 Social History None recorded. Functional Status None recorded. Mental Status None recorded. Family History Nothing Reported. Medical History No medical history recorded. Gynecological HistoryNo gynecological history recorded. Obstetrics History GPAL:G 0 P 0 0 0 0 Past Encounters Encounter ID Performer Location Encounter Start Date Encounter Closed Date Diagnosis/Indication Diagnosis SNOMED-CT Code Diagnosis ICD10 Code Diagnosis Note [id number] YIN ZAVALETA MD [facility] 100 [place] [address] 11/28/2023 08:57:25 11/28/2023 09:25:04 Chronic hoarseness 1287580851 105 R49.0 Feeling of lump in throat 424029453 R09.89 Obstructiv e sleep apnea syndrome 09474494 G47.33 Moderate p ersistent asthma 939433308 J45.40 Health Concerns Section Related Observation LastModified by Organization Detai ls LastModified Time None Recorded Concern Status LastModified by Organization Details LastModified Time None Recorded Advance Directives Directive None Recorded Payers Encounter Date Sequence Insurance Name Policy Number Policy Angel Covered Member ID Angel Member ID Guarantor Name 11/28/2023 1 [place] [facility] Ann-Marie Flores [id number] Ann-Marie Flores Notes Date Note Type Note [...] years.Waiting for colonoscopy YIN REEVES MD 100 [facility],[address] [address], [place], [address], [place] [facility] 11/28/2023 09:23:20 OBGyn Episode No OBEpisode recorded.
--- OUTSIDE RECORDS SUMMARY | 2024-09-02 17:54 | XMS_ITS | Encounter Summary ---
Author Organization [employer] Address [address] [place] [address] 7[address] [place] [address] Care Team Providers Care Healthcare Market Consultant Name Role Phone Leelee Yanes MD Primary Care Provider + Reason for Visit * Reason Comments Med Refill Encounter Details Date Type Department Care Team (Late st Contact Info) Description 08/02/2022 Refill [facility] [address] [place] [address] [phone] Leelee Yanes MD [address] [place] [address] [phone] Acute bilateral low back pain, unspecified whether [...] Clinical Support [facility] [address] [place] [phone] Yoana Perry RN 12/06/2024 3:00 PM EDT Office Visit [facility] [address] [place] [address] Karly Bradford, ART [address] [place] [phone] documented as of this encounter Visit Diagnoses Diagnosis Acute bilateral low back pain, unspecified whether sciatica present documented in this encounter Care Teams Healthcare Market Consultant Relationship Specialty Start Date End Date Leelee Yanes MD [address] [place] [address] PCP - General Family Medicine 06/11/20 documented as of this encounter
--- OUTSIDE RECORDS SUMMARY | 2024-09-02 17:54 | XMS_ITS | Encounter Summary ---
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 Social History Tobacco [...] Description 10/03/2024 11:30 AM EDT Clinical Support [facility] [address] [place] [address] Yoana Perry, ESTEFANÍA 12/06/2024 3:00 PM EDT Office Visit [facility] [address] [place] [address] Karly Bradford, OD [address] [place] [address] documented as of this encounter Visit Diagnoses Diagnosis care home current use of diuretic documented in this encounter Additional Health Concerns Assessment Noted Time PHQ-9 Depression Total Score: 14 023 9:55 AM EDT documented as of this encounter Care Teams Bone Grinder Relationship Specialty Start Date End Date Leelee Yanes MD [address] [place] [address] PCP - General Family Medicine 06/11/20 documented as of this encounter
--- OUTSIDE RECORDS SUMMARY | 2024-09-02 17:54 | XMS_ITS | Encounter Summary ---
Author Organization [employer] Address [address] [place] [address] 7t [place] [address] Care Team Providers Care Administrative Director Name Role Phone Leelee Yanes MD Primary Care Provider + Reason for Visit * Reason Comments Med Refill Encounter Details Date Type Department Care Team ([facility] Contact Info) Description 08/04/2022 Refill [facility] [address] [place] [address] [phone] Marbella Carlin DO [address] [place], [place] [phone] Social History Tobacco Use Types Packs/Day Years [...] Upcoming Encounters Date Type Department Care Team ([facility] Contact Info) Description 10/03/2024 11:30 AM EDT Clinical Support [facility] [address] [place] [phone] Yoana Perry RN 12/06/2024 3:00 PM EDT Office Visit [facility] OPTOMET[facility] [address] [place] [address] Karly Bradford, OD [address] [place] [address] documented as of this encounter Visit Diagnoses Not on filedocumented in this encounter Care Teams Administrative Director Relationship Specialty Start Date End Date Leelee Yanes MD [address] [place] [address] PCP - General Family Medicine 06/11/20 documented as of this encounter
--- OUTSIDE RECORDS SUMMARY | 2024-09-02 17:54 | XMS_ITS | Patient Health Record ---
Author Organization [facility] Address [address] [place] [address] Care Team Providers Care Beauty Culturist Name Role Phone Yoel Yanes MD Primary Care Provider Unavail able Shay Araya Unavailable [phone] Allergies Allergen (clinical drug ingredient) Drug/Non Drug Allergy documented on EMR Reaction Allergy Type Onset Date Status Rocephin Unknown Drug Allergy Active Keflex Unknown Drug Allergy Active sulfamethoxazole / trimethoprim Bactrim Unknown Drug Allergy Active Reason For Referral Referring Provider First Name Ivana Referring Provider Last Name Eduardo Referred Organization [facility] Referred Provider Shay Araya Referred Address [address],[place], [place],[address], Referred Provider Specialty Gastroentero logy General Notes Carri Vidal 2024 01:54:30 PM requested a [facility] from [facility] for visit with Dr. Araya on 08-07-2024 Referral Priority Routine Medications Medication SIG (Take, Route, Frequency, Duration) Notes Start Date End Date Status Citalopram Hydrobromide 40 MG TOME TAYLOR TABLETA TODOS LOS D EN LA MA YOEL Oral for 30 Days Active Mupirocin 2 % APLIQUE AL KATHY AFECT ADA TODOS LOS D POR 10 D External for 10 Days Active DuoNeb Active Colyte w Flavor Packs 240 GM as directed Orally as directed for 1 day(s) 04/05/2014 Active Saline 0.65 % 2 drops in each nost ril as needed Nasally every 2 hrs Active Atorvastatin Calcium 80 MG 1 tablet Orally Once a day Active Patanol 0.1 % 1 drop into affected eye Ophthalmic Twice a day Active amLODIPine Besylate 10 MG 1 tablet Orally Once a day Active Vitamin D 1000 UNIT 1 tablet Orally Once a day Active Fluticasone Propionate 50 MCG/ACT 1 spray in each nostril Nasally Once a day Active traMADol HCl 50 MG TAKE 1 TABLET EVERY TWELVE HOURS NEEDED FOR SEVERE PAIN Oral for 28 Days Active Zolpidem Tartrate 10 MG 1 tablet at bedt myrna as needed Orally Once a day Active Trulicity 1.5 MG/0.5ML INJECT ONE PEN (= 1.5MG) SUBCUTANEOUSLY ONCE A WEEK DIRECTED Subcutaneous for 28 Days Active Citalopram Hydrobromide 40 MG 0.5 tablet Orally Once a day Active Ketotifen Fumarate 0.035 % PONGA TAYLOR GOTA EN NICOLE AFECTADO DOS VECES AL JOSÉ LUIS Ophthalmic for 19 Days Active buPROPion HCl ER (XL) 300 MG 1 tablet in the morning Orally Once a day Active Ipratropium [place] 0.03 % INHALE 1-2 SPRAYS NASALLY NEEDED UP TO 3 TIMES A DAY. Nasal for 30 Days Active ProAir HFA 108 (90 Base) MCG/ACT 2 puffs as needed Inhalation every 4 hrs Active PriLOSEC OTC 20 MG 1 tablet Orally Once a day Not-Taking Furosemide 20 MG 1 tablet Orally Once a day Active Daily-Royal Multivitamin - TAKE 1 TABLET BY MOUTH WITH FOOD Oral for 90 Days Active LORazepam 0.5 MG 1 tablet as needed O rally Twice a day Active Multivitamin Orally Active Atorvastatin Calcium 40 MG TOME 1 TABLETA POR V A ORAL TODOS LOS D Oral for 90 Days Active Ibuprofen 600 MG 1 tablet Orally Thre e times a day Active Montelukast Sodium 10 MG TOME TAYLOR TABLETA TODOS LOS D AL ACOSTARSE Oral for 90 Days Active Doxycycline Hyclate 50 MG 2 capsules Orally Once a day Active Pantoprazole Sodium 40 MG TOME 1 TABLETA POR V A ORAL TODOS LOS D EN LA MA YOEL Oral for 90 Days Active Hibiclens 4 % Externally Activ e Loratadine 10 MG TOME 1 TABLETA POR V A ORAL TODOS LOS D Oral for 90 Days Active Loratadine 10 MG 1 tablet Orally Once a day Active Mupirocin 2 % 1 application to aff ected area Externally Three times a day Active Mag64 535 (64 Mg) MG 1 tablet Orally Twi ce a day Active Zafirlukast 20 MG 1 tablet Orally Twic e a day Active Gabapentin 100 MG Orally Ac tive Pain & Fever Extra Strength 500 MG 1 tablet as needed Orally every 6 hrs Active EpiPen 2-Clayton 0.3 MG/0.3ML Injection Active Micardis 80 MG 1 tablet Orally Once a day Active Advair Diskus 250-50 MCG/DOSE 1 puff Inhalation Twice a day Active traMADol HCl 50 MG 1 tablet as needed O rally every 6 hrs Active Immunizations Vaccine Route Administration Date Status Comme nts Influenza Unknown 08/07/2024 Refused Problems Problem Type SNOMED Code ICD Code Onset Dates Problem Status W/U Status Risk Notes Problem Diarrhea (61649919) Diarrhea (787.91) Active confirmed Problem Colon cancer screening (169486151) Colon cancer screening (V76.51) Active confirmed Problem Gastroesophageal reflux disease (472053608) GERD (gastroesopha geal reflux disease) (530.81) Active confirmed Problem Colon cancer screening (042366910) Colon cancer screening (Z12.11) Active confirmed Problem Dysphagia (32863110) Dysphagia (R13.10) Active confirmed Problem Gastroesophageal reflux disease (915105886) GERD (gastroesopha geal reflux disease) (K21.9) Active confirmed Vital Signs Temperature 97.7 degrees Fahrenheit 08/07/2024 Blood pressure diastolic 01 mm Hg 08/07/2024 Height 62 in 08/07/2024 Blood pressure systolic 001 mm Hg 08/07/2024 Weight 209.6 lbs 08/07/2024 BMI 38.33 kg/m2 08/07/2024 Procedures Procedure Date Ordered Date Performed Result Body Sit e UPPER GI ENDOSCOPY BALLOOON DILATION OF ESOPH 08/07/2024 N/A COLONOSCOPY 08/07/2024 N/A Encounters Encounter Location Date Provider Diagnosis [facility] [address] [place] [phone] 08/07/2024 Shay Araya Colon cancer screening Z12.11 ; Dysphagia R13.10 and GERD (gastroesophageal reflux disease) K21.9 [facility] [address] [place] [phone] 08/07/2024 Shay Araya Assessments Encounter Date Diagnosis (ICD Code) Assessment [...] procedure. Of note, there will be a medical technician assistant present on the day of the procedure [...] procedure. Of note, there will be a medical technician assistant present on the day of the procedure [...] procedure. Of note, there will be a medical technician assistant present on the day of the procedure to review things with Ann-Marie again. Ann-Marie was comfortable with this plan. Thank you again for allowing me to participate in Ann-Marie's care. I shall continue to keep you advised of her progress. Plan Of Treatment Pending Test Test Name Order Date UPPER GI ENDOSCOPY BALLOOON DILATION OF ESOPH 08/07/2024 COLONOSCOPY 08/07/2024 Future Test Test Name Order Date COLONOSCOPY 04/04/2014 Next Appt Details Provider Name:Shay Arndt Quiana , 11/15/2024 11:00:00 AM, [address] [place] [address] , [place], [place], [phone], Insurance Providers Payer Name Payer Address Payer Phone Subscriber Number Group Number Insured Name Patient Relationship to Insured Coverage Start Date Coverage End Date MEDICAID OF [facility] [address] [place] [id number] HARRISANN-MARIE RIOS Self - patient is the insured Medical (General) History Medical History History ICD Code Neg. colonoscopy in 2001 GERD-EGD in 2001 with no esophagitis, HH , nor Leonardo's Allergic rhinitis Back pain Asthma Hypertension Hyperlipidemia Obesity Sleep apnea-uses CPAP Denies NE,CVA,renal disease Depression/Anxiety Arthritis NIDDM Negative screening colonoscopy in 06/2014 Kidney stones Surgical History Surgery Date(Month/Year) Gastric sleeve with Dr. 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 Rubi
--- OUTSIDE RECORDS SUMMARY | 2024-09-02 17:54 | XMS_ITS | Encounter Summary ---
Author Organization [employer] Address [address] [place] [address] 7t [place] [address] Care Team Providers Care Dextrine Mixer Name Role Phone Leelee Yanes MD Primary Care Provider + Encounter Details Date Type Department Care Team (Late st Contact Info) Description 09/02/2024 Orders Only GENERIC EXTERNAL DATA DEPARTMENT Provider, Generic External Data Social History Tobacco Use Types Packs/Day Years [...] AM EDT Clinical Support [facility] [address] [place] [address] Yoana Perry RN 12/06/2024 3:00 PM EDT Office Visit [facility] OPTOMETRY [address] [place], [place] [phone] Karly Bradford, OD [address] [place] [address] documented as of this encounter Procedures Procedure Name Priority Date/Time Associated Diagnosis Comments HIGH SENSITIVITY TROPONIN I Routine 09/02/2024 4:26 PM EDT SARS COV2/INFLUENZA A/B AND RSV RNA QL NAAT Routine 09/02/2024 4:26 PM EDT CBC WITH AUTO DIFFERENTIAL Routine 09/02/2024 4:26 PM EDT APTT Routine 09/02/2024 4:26 PM EDT PROTHROMBIN TIME-INR Routine 09/02/2024 4:26 PM EDT MAGNESIUM Routine 09/02/2024 4:26 PM EDT COMPREHENSIVE METABOLIC PANEL Routine 09/02/2024 4:26 PM EDT documented in this encounter Results * SARS-CoV-2 RNA, Influenza A/B, and RSV RNA, Ql NAAT (09/02/2024 4:26 PM EDT) Influenza A PCR NEGATIVE Negative [facility] Influenza B PCR NEGATIVE Negative [facility] Resp Syncy Virus RNA Qual PCR NEGATIVE Negative [facility] SARS COV2 PCR NEGATIVE Negative [facility] Comment:All test results mus t be [...] use by authorized laboratories.Testing performed on the [employer] [facility] GeneXpert utilizingreal-time RT-PCR.All SARS CoV2 and positive influenza A/B results arereported to [facility]. 09/02/2024 4:26 PM EDT 09/02/2024 4:30 PM EDT Generic External Data Provider LAB MICROBIOLOGY - GENERAL ORDERABLES Final Result Performing Organization Address City/[facility] Co de Phone Number [facility] [address] [place] [phone] * (ABNORMAL) Magnesium (09/02/2024 4:26 PM EDT) Pathologist [facility] Magnesium 0.9(LL) 1.6 - 2.6 mg/dL [facility] Comment:Critical value for t est(s): MAGS Results called to and readback by: NEELAM Person calling: JO ANN Date: 09.02.24 Time:1700 09/02/2024 4:26 PM EDT 09/02/2024 4:30 PM EDT Generic External Data Provider LAB BLOOD ORDERAB LES Final Result [facility] [address] [place] [address] [phone] * (ABNORMAL) Comprehensive Metabolic Panel (09/02/2024 4:26 PM EDT) Sodium 144 135 - 145 mmol/L [facility] Potassium 3.0(L) 3.3 - 5.1 mmol/L [facility] Chloride 101 96 - 108 mmol/L [facility] Carbon Dioxide 33(H) 22 - 29 mmol/L [facility] Anion Gap 13 12 - 20 [facility] Urea Nitrogen (BUN) 14 9 - 16 mg/dL [facility] Creatinine, Serum 0.85 0.5 - 1.4 mg/dL [facility] Creatinine Clr Calc Pharmacy 73.4 [facility] Comment:Provided height and weight: 154.94 cm,93.44 kg.eGFR (calculated from the MDRD study equation) and eCrCl(calculated from the Cockcroft-Gault equation) are based ondifferent parameters and may not yield comparable results.If eCrCl result is absurd, please check patient'sheight/weight. Estimated Glomerular Filt Rate >60 [facility] Comment:Chronic Kidney Disea se: Estimated GFR < 60 mL/min/1.47u3Jqecwb Kidney Disease: Estimated GFR < 15 mL/min/1.73m2 Glucose 96 60 - 115 mg/dL [facility] Calcium 7.6(L) 8.4 - 10.2 mg/dL [facility] Bilirubin, Total 0.3 0.0 - 1.0 mg/dL [facility] Aspartate Amino Transferase 24 5 - 31 U/L [facility] Alanine Aminotransferase 33(H) 0 - 31 U/L [facility] Total Protein 6.8 6.5 - 8.0 g/dL [facility] Albumin Level 3.7 3.5 - 5.0 g/dL [facility] Alkaline Phosphatase 100 39 - 117 U/L [facility] 09/02/2024 4:26 PM EDT 09/02/2024 4:30 PM EDT Generic External Data Provider LAB BLOOD ORDERAB LES Final Result Performing Organization Address [facility] de Phone Number [facility] [address] [place] [phone] * High Sensitivity Troponin I (09/02/2024 4:26 PM EDT) TROPONIN I HIGH SENSITIVITY 3.3 <3.5 - 17.0 ng/L [facility] Comment:The [place] high sens itivity Troponin-I results should beused in conjunction with other diagnostic information suchas ECG, clinical observations and information, and patientsymptoms to aid in the diagnosis of [place]. 09/02/2024 4:26 PM EDT 09/02/2024 4:30 PM EDT Generic External Data Provider LAB BLOOD ORDERAB LES Final Result Performing Organization Address [facility] Phone Number [facility] [address] [place] [phone] * (ABNORMAL) Partial Thromboplastin Time, Activated (APTT) (09/02/2024 4:26 PM EDT) [facility] Partial Thromboplastin Time 25.0(L) 26.0 - 36.8 SEC [facility] Comment:For information rega rding the monitoring of direct thrombininhibitors, please refer to Pharmacy. 09/02/2024 4:26 PM EDT 09/02/2024 4:30 PM EDT Generic External Data Provider LAB BLOOD ORDERAB LES Final Result Performing Organization Address [facility] de Phone Number [facility] [address] [place] [phone] * (ABNORMAL) Prothrombin Time-INR (09/02/2024 4:26 PM EDT) Pathologist [facility] Prothrombin Time 10.8(L) 10.9 - 12.4 SEC [facility] INTERNATIONAL NORM RATIO 0.9 0.9 - 1.1 [facility] Comment:INTERNATIONAL NORMAL IZED RATIO [...] Provider LAB BLOOD ORDERAB LES Final Result [facility] [address] [place] [phone] * (ABNORMAL) CBC auto differential (09/02/2024 4:26 PM EDT) White Blood Count 10.6 4.8 - 10.8 X10*3/uL [facility] Red Blood Count 4.30 4.20 - 5.50 X10*6/uL [facility] Hemoglobin 12.0 12.0 - 16.0 g/dl [facility] Hematocrit 35.7(L) 37.0 - 47.0 % [facility] Mean Corpuscular Volume 83.0 80.0 - 98.0 fL [facility] Mean Corpuscular Hemoglobin 27.9 27.0 - 33.0 pg [facility] Mean Corpuscular HGB Conc 33.6 31.0 - 35.0 g/dl [facility] Red Cell Distribution Width 14.7 11.0 - 16.0 % [facility] Platelet Count 309 160 - 400 X10*3/uL [facility] Mean Platelet Volume 10.1 9.4 - 12.3 fL [facility] Neutrophils Percent Auto 58.3 45 - 73 % [facility] Imm Gran Pct Auto 0.4 0.0 - 0.4 % [facility] Lymphocytes Percent Auto 31.2 20 - 40 % [facility] Monocytes Percent Auto 8.6 2 - 11 % [facility] Eosinophils Percent Auto 1.2 0 - 4 % [facility] Basophils Percent Auto 0.3 0 - 2 % [facility] NRBC Pct Auto 0.0 0.0 - 0.2 /100WBC [facility] Neutrophils Absolute Auto 6.2 2.0 - 8.3 x10*3/uL [facility] Imm Gran Abs Auto 0.04(H) 0.00 - 0.03 X10*3/uL [facility] Lymphocytes Absolute Auto 3.3 1.2 - 4.9 X10*3/uL [facility] Monocytes Absolute Auto 0.9 0.1 - 1.2 X10*3/uL [facility] Eosinophils Absolute Auto 0.1 0.0 - 0.4 X10*3/uL [facility] Basophils Absolute Auto 0.0 0.0 - 0.2 X10*3/uL [facility] NRBC Abs Auto 0.000 0.0 - 0.012 X10*3/uL [facility] 09/02/2024 4:26 PM EDT 09/02/2024 4:30 PM EDT us Generic External Data Provider LAB BLOOD ORDERAB LES Final Result Performing Organization Address City/State/[facility] Co de Phone Number [facility] [address] [place] [phone] documented in this encounter Visit Diagnoses Not on filedocumented in this encounter Additional Health Concerns Assessment Noted Time PHQ-9 Depression Total Score: 16 024 9:59 AM EST documented as of this encounter Care Teams Dextrine Mixer Relationship Specialty Start Date End Date Leelee Yanes MD [address] [place] [phone] PCP - General Family Medicine 06/11/20 documented as of this encounter
--- OUTSIDE RECORDS SUMMARY | 2024-09-02 17:54 | XMS_ITS | Encounter Summary ---
Author Organization [employer] Address [address] [place] [address] 7t [place] [address] Care Team Providers Care Development Editor Name Role Phone Leelee Yanes MD Primary Care Provider + Reason for Visit * Reason Comments Med Refill Encounter Details Date Type Department Care Team ([facility] st Contact Info) Description 09/02/2024 Refill [facility] MEDICINE [address] [place] [address] Leelee Yanes MD 230 [place] [address] Social History Tobacco Use Types Packs/Day Years [...] Clinical Support [facility] MEDICINE [address] [place] [address] Yoana Perry RN 12/06/2024 3:00 PM EDT Office Visit [facility] OPTOM[facility] [address] [place] [address] Karly Bradford, OD 230 [place] [address] documented as of this encounter Visit Diagnoses Not on filedocumented in this encounter Additional Health Concerns Assessment Noted Time PHQ-9 Depression Total Score: 16 024 9:59 AM EST documented as of this encounter Care Teams Development Editor Relationship Specialty Start Date End Date Leelee Yanes MD 230 [place] [address] PCP - General Family Medicine 06/11/20 documented as of this encounter
--- OUTSIDE RECORDS SUMMARY | 2024-09-02 17:54 | XMS_ITS | Encounter Summary ---
Author Organization [employer] Address [address] [facility] 7t [place] [address] Care Team Providers Care Window Cutter Name Role Phone Leelee Yanes MD Primary Care Provider + Encounter Details Date Type Department Care Team (Late Contact Info) Description 07/19/2022 Orders Only [facility] CH[facility] MED & PEDS [address] [place], [place] [phone] Marbella Munoz LPN Social History Tobacco Use [...] Description 10/03/2024 11:30 AM EDT Clinical Support [facility] MEDICINE 230 [place], [place] [phone] Yoana Perry RN 12/06/2024 3:00 PM EDT Office Visit [facility] OPTOMETRY [address] [place], [place] [phone] Karly Bradford, ART 230 [place] [address] documented as of this encounter Visit Diagnoses Not on filedocumented in this encounter Care Teams Window Cutter Relationship Specialty Start Date End Date Leelee Yanes MD 230 [place] [address] PCP - General Family Medicine 06/11/20 documented as of this encounter
--- OUTSIDE RECORDS SUMMARY | 2024-09-02 17:54 | XMS_ITS | Encounter Summary ---
Author Organization [employer] Address [address] [place] [address] 7t [place] [address] Care Team Providers Care Die Tester Name Role Phone Leelee Yanes MD Primary Care Provider + Reason for Visit * Reason Comments Med Refill Encounter Details Date Type Department Care Team (Late Contact Info) Description 08/31/[address] [facility] MEDICINE [address] [place] [address] Leelee Yanes MD 230 [place] [address] Acute bilateral low back pain, unspecified whether [...] Description 10/03/2024 11:30 AM EDT Clinical [facility] MEDICINE [address] [place] [address] Yoana Perry, ESTEFANÍA 12/06/2024 3:00 PM EDT Office Visit [facility] OPTOMETRY [address] [place] [address] Karly Bradford, OD 230 [place] [address] documented as of this encounter Visit Diagnoses Diagnosis Acute bilateral low back pain, unspecified whether sciatica present documented in this encounter Additional Health Concerns Assessment Noted Time PHQ-9 Depression Total Score: 14 023 9:55 AM EDT documented as of this encounter Care Teams Die Tester Relationship Specialty Start Date End Date Leelee Yanes MD 230 [place] [address] PCP - General Family Medicine 06/11/20 documented as of this encounter
--- OUTSIDE RECORDS SUMMARY | 2024-09-02 17:54 | XMS_ITS | Encounter Summary ---
Author Organization [employer] Address [address] [place] [address] 7t [place] [address] Care Team Providers Care Sociology Research Assistant Name Role Phone Leelee Yanes MD Primary Care Provider + Reason for Visit * Reason Onset Date Comments Durable Medical Equipment 09/28/2022 Encounter Details Date Type Department Care Team ([facility] st Contact Info) Description 09/28/2022 Telephone [facility] MEDICINE 230 [place], [place] [phone] Leelee Yanes MD 230 [place], [place] [phone] Durable Medical Equipment Social History Tobacco Use [...] have PCP send script for walker to [facility]. Please contact pt at [phone] documented in this encounter Plan of Treatment Upcoming Encounters Date Type Department Care Team (Late st Contact Info) Description 10/03/2024 11:30 AM EDT Clinical Support [facility] MEDICINE 230 [place] [address] Yoana Perry RN 12/06/2024 3:00 PM EDT Office Visit [facility] OPTOMETRY [address] [place] [address] Sanchez, Karly, OD 230 [place] [address] documented as of this encounter Visit Diagnoses Not on filedocumented in this encounter Additional Health Concerns Assessment Noted Time PHQ-9 Depression Total Score: 14 023 9:55 AM EDT documented as of this encounter Care Teams Sociology Research Assistant Relationship Specialty Start Date End Date Leelee Yanes MD 230 [place] [address] PCP - General Family Medicine 06/11/20 documented as of this encounter
--- OUTSIDE RECORDS SUMMARY | 2024-09-02 17:54 | XMS_ITS | Encounter Summary ---
Author Organization [employer] Address [address] [place] [address] 7t [place] [address] Care Team Providers Care Marine Pipe Welder Name Role Phone Leelee Yanes MD Primary Care Provider + Reason for Visit * Reason Comments Med Refill Encounter Details Date Type Department Care Team (Late Contact Info) Description 01/06/2023 Refill [facility] MEDICINE [address] [place] [address] Leelee Yanes MD 230 [place] [address] Lumbar radiculopathy; Primary osteoarthritis of left knee; [...] Description 10/03/2024 11:30 AM EDT Clinical Support [facility] MEDICINE [address] [place] [address] Yoana Perry RN 12/06/2024 3:00 PM EDT Office Visit [facility] OPTOMETRY [address] [place] [address] Karly Bradford, OD 230 [place] [address] documented as of this encounter Visit Diagnoses Diagnosis Lumbar radiculopathy Thoracic or lumbosacral neuritis or radiculitis, unspecified Primary osteoarthritis of left knee Acute bilateral low back pain, unspecified whether sciatica present documented in this encounter Additional Health Concerns Assessment Noted Time PHQ-9 Depression Total Score: 14 023 9:55 AM EDT documented as of this encounter Care Teams Marine Pipe Welder Relationship Specialty Start Date End Date Leelee Yanes MD 230 [place] [address] PCP - General Family Medicine 06/11/20 documented as of this encounter
[2024-09-02] MEDS: Magnesium Sulfate/H2O 2 GM/50 ML PIGGYBACK IV ×2 (18:19→20:18)
[2024-09-02] MEDS: Potassium Chloride Packet 20 MEQ PACKET 40 MEQ PO (18:19)
[2024-09-02] MEDS: diazePAM 10 MG/2 ML CARTRIDGE 5 MG IVPUSH (18:20)
[2024-09-02 20:00] VITALS: BP 108/72; PULSE 81; RESP 18; TEMP 36.1; O2SAT 97
[2024-09-02 20:02] LABS: Anion Gap 15 (12-20); Blood Urea Nitrogen 13 mg/dL (9-16); Calcium 7.4 mg/dL (8.4-10.2); Carbon Dioxide 33 mmol/L (22-29); Chloride 101 mmol/L (96-108); Creatinine Clr Calc Pharmacy 75.1; Estimated Glomerular Filt Rate > 60; Glucose Random 92 mg/dL (60-115); Magnesium 1.6 mg/dL (1.6-2.6); Potassium 3.5 mmol/L (3.3-5.1); Sodium 145 mmol/L (135-145)
[2024-09-02 22:23] VITALS: BP 108/70; PULSE 83; RESP 16; TEMP 36.6; O2SAT 98
== END 2024-09-02 22:24 | disposition home or self-care (01) ==
PROVIDERS: Physician Assistant; Emergency Provider Emergency Medicine Emergency Medical Services; PCP Internal Medicine
DX: E83.42 Hypomagnesemia (principal); E87.6 Hypokalemia; R07.89 Other chest pain; R79.89 Other specified abnormal findings of blood chemistry; R20.2 Paresthesia of skin; J44.9 Chronic obstructive pulmonary disease, unspecified; F41.9 Anxiety disorder, unspecified; Z79.899 Other long term (current) drug therapy; Z98.84 Bariatric surgery status; Z03.818 Encounter for observation for suspected exposure to other biological agents ruled out
CPT/HCPCS: 0241U; 36415; 70450; 71045; 80048; 80053; 83735; 84484; 85025; 85610; 85730; 93005; 96365; 96366; 96375; 99284; 99285; J3360; J3475

== ENCOUNTER → 2024-09-02 16:04 | Outpatient (BNV) | payer MEDICAID, SELFPAY | PROVIDERS: PCP Internal Medicine; Visit Provider Radiology Diagnostic Radiology | DX: G93.0 Cerebral cysts (principal); M26.643 Arthritis of bilateral temporomandibular joint; R07.89 Other chest pain | CPT/HCPCS: 70450; 71045 ==

== ENCOUNTER → 2024-09-02 16:04 | Outpatient (BNV) | payer MEDICAID, SELFPAY | PROVIDERS: Emergency Provider Emergency Medicine Emergency Medical Services; PCP Internal Medicine; Visit Provider Internal Medicine | DX: R20.2 Paresthesia of skin (principal) | CPT/HCPCS: 93010 ==

== ENCOUNTER 2024-09-04 11:13 | Outpatient (REF) | payer MEDICAID, SELFPAY ==
--- OUTSIDE RECORDS SUMMARY | 2024-09-04 12:40 | XMS_ITS | Encounter Summary ---
Author Organization [employer] Address [address] [place] [address] 7t [place] [address] Care Team Providers Care Licensed Acupuncturist Name Role Phone Leelee Yanes MD Primary Care Provider + Encounter Details Date Type Department Care Team ([facility] Contact Info) Description 01/23/2023 Orders Only [facility] CHC MED & PEDS [address] [place], [place] [phone] Gahda Isidro LPN Social History Tobacco Use Types [...] Department Care Team (Late Contact Info) Description 09/06/2024 12:15 PM EDT Telemedicine [address] [phone] Leelee Yanes MD [address] [place] [phone] 10/03/2024 11:30 AM EDT Clinical Support [address] [phone] Yoana Perry, RN 12/06/2024 3:00 PM EDT Office Visit [facility] OPTOMETRY [address] [place] [address] Karly Bradford, ART 230 [place] [address] documented as of this encounter Visit Diagnoses Not on filedocumented in this encounter Additional Health Concerns Assessment Noted Time PHQ-9 Depression Total Score: 14 023 9:55 AM EDT documented as of this encounter Care Teams Licensed Acupuncturist Relationship Specialty Start Date End Date Leelee Yanes MD 230 [place] [address] PCP - General Family Medicine 06/11/20 documented as of this encounter
--- OUTSIDE RECORDS SUMMARY | 2024-09-04 12:40 | XMS_ITS | Encounter Summary ---
Author Organization [employer] Address [address] [facility] 7t [place] [address] Care Team Providers Care Cottage Master Name Role Phone Leelee Yanes MD Primary Care Provider + Encounter Details Date Type Department Care Team ([facility] st Contact Info) Description 02/17/2023 Telephone [facility] MEDICINE 230 [place], [place] [phone] Leelee Yanes MD 230 [place] [address] Social History Tobacco Use Types Packs/Day Years [...] C3 requesting a call in regards to ORDER PICKER/ASSEMBLER form. Please contact parvez at [phone] documented in this encounter Plan of Treatment Upcoming Encounters Date Type Department Care Team (Late st Contact Info) Description 09/06/2024 12:15 PM EDT Telemedicine [facility] MEDICINE 230 [place] [address] Leelee Yanes MD 230 [place] [address] 10/03/2024 11:30 AM EDT Clinical Support [facility] MEDICINE 230 [place] [address] Yoana Perry RN 12/06/2024 3:00 PM EDT Office Visit [facility] OPTOMETRY [address] [place] [address] Karly Bradford, OD 230 [place] [address] documented as of this encounter Visit Diagnoses Not on filedocumented in this encounter Additional Health Concerns Assessment Noted Time PHQ-9 Depression Total Score: 14 023 9:55 AM EDT documented as of this encounter Care Teams Cottage Master Relationship Specialty Start Date End Date Leelee Yanes MD 230 [place] [address] PCP - General Family Medicine 06/11/20 documented as of this encounter
--- OUTSIDE RECORDS SUMMARY | 2024-09-04 12:40 | XMS_ITS | Encounter Summary ---
Author Organization [employer] Address [address] [place] [address] 7 [place] [address] Care Team Providers Care Director Of Publications Name Role Phone Leelee Yanes MD Primary Care Provider + Reason for Visit * Reason Comments Med Refill Encounter Details Date Type Department Care Team (Late Contact Info) Description 05/24/2022 Refill [facility] MEDICINE [address] [place] [phone] Leelee Yanes MD [address] [place] [address] [phone] Acute bilateral low back pain, unspecified whether [...] Info) Description 09/06/2024 12:15 PM EDT Telemedicine [facility] MEDICINE [address] [place] [address] [phone] Leelee Yanes MD [address] [place] [address] [phone] 10/03/2024 11:30 AM EDT Clinical Support [facility] MEDICINE [address] [place] [address] [phone] Yoana Perry RN 12/06/2024 3:00 PM EDT Office Visit [facility] OPTOMETRY [address] [place] [address] Karly Bradford, OD 230 [place] [address] documented as of this encounter Visit Diagnoses Diagnosis Acute bilateral low back pain, unspecified whether sciatica present documented in this encounter Care Teams Director Of Publications Relationship Specialty Start Date End Date Leelee Yanes MD 230 [place] [address] PCP - General Family Medicine 06/11/20 documented as of this encounter
--- OUTSIDE RECORDS SUMMARY | 2024-09-04 12:40 | XMS_ITS | Encounter Summary ---
Author Organization [employer] Address [address] [facility] 7t [place] [address] Care Team Providers Care Greenskeeper Name Role Phone Leelee Yanes MD Primary Care Provider + Reason for Visit * Reason Comments Med Refill Encounter Details Date Type Department Care Team (Late st Contact Info) Description 06/06/2024 Refill [facility] CHC MED & PEDS [address] [place] [address] Leelee Yanes MD 230 [place] [address] Lumbar radiculopathy; Primary osteoarthritis of left knee; [...] Info) Description 09/06/2024 12:15 PM EDT Telemedicine [facility] MEDICINE 230 [place] [address] Leelee Yanes MD 230 [place] [address] 10/03/2024 11:30 AM EDT Clinical Support [facility] MEDICINE [address] [place] [address] Yoana Perry RN 12/06/2024 3:00 PM EDT Office Visit [facility] OPTOMETRY [address] [place] [address] Karly Bradford, OD 230 [place] [address] documented as of this encounter Visit Diagnoses Diagnosis Lumbar radiculopathy Thoracic or lumbosacral neuritis or radiculitis, unspecified Primary osteoarthritis of left knee Acute bilateral low back pain, unspecified whether sciatica present documented in this encounter Additional Health Concerns Assessment Noted Time PHQ-9 Depression Total Score: 16 024 9:59 AM EST documented as of this encounter Care Teams Greenskeeper Relationship Specialty Start Date End Date Leelee Yanes MD [address] [place] [address] PCP - General Family Medicine 06/11/20 documented as of this encounter
--- OUTSIDE RECORDS SUMMARY | 2024-09-04 12:40 | XMS_ITS ---
Author Organization [facility] Address [address] [place] [address] Care Team Providers Care Top Case Assembler Name Role Phone Farzana KELLY, Yoel Primary Care Provider Unavail able Shay Araya Unavailable [phone] Allergies Allergen (clinical drug ingredient) Drug/Non Drug [...] LUIS Ophthalmic for 19 Days Active Ipratropium [place] 0.03 % INHALE 1-2 SPRAYS NASALLY NEEDED [...] Status Risk Notes Problem Colon cancer screening (757216843) Colon cancer screening (Z12.11) Active confirmed Problem Gastroesophageal reflux disease (246884938) GERD (gastroesopha geal reflux disease) (K21.9) Active confirmed Problem Dysphagia (71497478) Dysphagia (R13.10) Active confirmed Vital Signs Temperature [...] N/A Encounters Encounter Location Date Provider Diagnosis [facility] [address] [place] [address] 08/07/2024 Shay Araya Colon cancer screening Z12.11 [...] Of note, there will be a medical pathology teacher present on the day of the procedure [...] Of note, there will be a medical pathology teacher present on the day of the procedure [...] Of note, there will be a medical pathology teacher present on the day of the procedure [...] Provider Name:Shay Araya , 11/15/2024 11:00:00 AM, [address] [place] [address], [phone], Progress Notes * HEAVENLY HARRISA NDOB:1965 (58 yo F)Acc No.[id number]:08/07/2024 Progress Notes Patient:?ANN-MARIE HARRIS N Provider:?Shay Araya MD :1965???Age:58 Y???Sex:Female D ate:08/07/2024 [place] Pcp:Yoel Yanes MD Subjective: * Chief Complaints: * ???Patient presents today fo r a colon screening * HPI: ???incontinence:? I saw Ann-Marie in the office today for evaluation of colorectal cancer screening. 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 [place] Monday[place]-15-24 at 10:00 stop Trulicity 7 days prior and No Furosemide the day before or day of the procedure Allyson will call the patient to go over the instuction and mail her the prep in Bahamian. 3.?GERD (gastroesophageal reflux disease)?Procedure: UPPER GI ENDOSCOPY BALLOOON DILATION OF ESOPH* with MAC Sched[place] [facility] [place] Monday11-15-24 at 11:00 stop Trulicity 7 days prior and No Furosemide the day before or day of the procedure Allyson will call the patient to go over the instuction and mail her the prep in Bahamian. * Immunizations:? Influenza (Not administered - Refused: Patient decision) * Procedure Codes:?66518 DIAGN OSTIC [id number] ESOPHAGUS [id number] COLORECTAL CA SCREEN DOC [id number] TOBACCO [id number] BP SCR NOT PRFRM REC REASON [id number] RCMND FLW-UP 10 YRS DOCD * Preventive Medicine:? ??Counseling:?Care goal follow-up plan:?Above Normal BMI Follow-up?Dietary management education, guidance, and counseling,?BMI management provided?Yes.? * Follow Up:?prn * * Sign off status: Completed true * Provider:?Shay Araya MD Date:? 025 Generated for Gerard corona/[place] on:?09/04/2024 12:40 PM EDT History and Physical Notes * [...]
--- OUTSIDE RECORDS SUMMARY | 2024-09-04 12:40 | XMS_ITS | Encounter Summary ---
Author Organization [employer] Address [address] [place] [address] 7t [place] [address] Care Team Providers Care Consulting Engineer Name Role Phone Leelee Yanes MD Primary Care Provider + Reason for Visit * Reason Comments Med Refill Encounter Details Date Type Department Care Team (Late Contact Info) Description 01/18/2023 Refill [facility] MEDICINE [address] [place] [address] [phone] Leelee Yanes MD [address] [place] [address] [phone] Social History Tobacco Use Types Packs/Day Years [...] Info) Description 09/06/2024 12:15 PM EDT Telemedicine [facility] MEDICINE [address] [place] [address] [phone] Leelee Yanes MD [address] [place] [address] [phone] 10/03/2024 11:30 AM EDT Clinical Support [facility] MEDICINE [address] [place] [address] Yoana Perry RN 12/06/2024 3:00 PM EDT Office Visit [facility] OPTOMETRY [address] [place] [address] Karly Bradford, OD 230 [place] [address] documented as of this encounter Visit Diagnoses Not on filedocumented in this encounter Additional Health Concerns Assessment Noted Time PHQ-9 Depression Total Score: 14 023 9:55 AM EDT documented as of this encounter Care Teams Consulting Engineer Relationship Specialty Start Date End Date Leelee Yanes MD 230 [place] [address] PCP - General Family Medicine 06/11/20 documented as of this encounter
--- OUTSIDE RECORDS SUMMARY | 2024-09-04 12:40 | XMS_ITS | Encounter Summary ---
Author Organization [employer] Address [address] [facility] 7t [place] [address] Care Team Providers Care Marriage Counselor Name Role Phone Leelee Yanes MD Primary Care Provider + Reason for Visit * Reason Comments Med Refill Encounter Details Date Type Department Care Team (Late st Contact Info) Description 06/10/2024 Refill [facility] MED & PEDS [address] [place] [address] Leelee Yanes MD [address] [place] [address] Lumbar radiculopathy; Primary osteoarthritis of left knee; [...] Info) Description 09/06/2024 12:15 PM EDT Telemedicine [facility] MEDICINE [address] [place] [address] Leelee Yanes MD [address] [place] [address] 10/03/2024 11:30 AM EDT Clinical Support [facility] MEDICINE [address] [place] [address] Yoana Perry RN 12/06/2024 3:00 PM EDT Office Visit [facility] OPTOMETRY [address] [place] [address] Karly Bradford, OD [address] [place] [address] documented as of this encounter Visit Diagnoses Diagnosis Lumbar radiculopathy Thoracic or lumbosacral neuritis or radiculitis, unspecified Primary osteoarthritis of left knee Acute bilateral low back pain, unspecified whether sciatica present documented in this encounter Additional Health Concerns Assessment Noted Time PHQ-9 Depression Total Score: 16 024 9:59 AM EST documented as of this encounter Care Teams Marriage Counselor Relationship Specialty Start Date End Date Leelee Yanes MD [address] [place] [address] PCP - General Family Medicine 06/11/20 documented as of this encounter
--- OUTSIDE RECORDS SUMMARY | 2024-09-04 12:40 | XMS_ITS | Encounter Summary ---
Author Organization [employer] Address [address] [place] [address] 7t [place] [address] Care Team Providers Care Drupal Developer Name Role Phone Leelee Yanes MD Primary Care Provider + Reason for Visit * Reason Comments Med Refill Encounter Details Date Type Department Care Team ([facility] st Contact Info) Description 03/15/2024 Refill [facility] MED[facility] [address] [place] [address] Leelee Yanes MD [address] [place], [place] [phone] Type 2 diabetes mellitus without complication, without long-term current use of insulin ([facility]) Social History Tobacco Use Types [...] EDT Telemedicine [facility] MEDICINE [address] [place] [address] Leelee Yanes MD [address] [place] [address] 10/03/2024 11:30 AM EDT Clinical Support [facility] MED[facility] [address] [place] [address] Yoana Perry RN 12/06/2024 3:00 PM EDT Office Visit [facility] OPTOMETRY [address] [place] [address] Karly Bradford, OD [address] [place] [address] documented as of this encounter Visit Diagnoses Diagnosis Type 2 diabetes mellitus without complication, without long-term current use of insulin ([facility]) documented in this encounter Additional Health Concerns Assessment Noted Time PHQ-9 Depression Total Score: 16 024 9:59 AM EST documented as of this encounter Care Teams Drupal Developer Relationship Specialty Start Date End Date Leelee Yanes MD [address] [place] [phone] PCP - General Family Medicine 06/11/20 documented as of this encounter
--- OUTSIDE RECORDS SUMMARY | 2024-09-04 12:40 | XMS_ITS | Encounter Summary ---
Author Organization [employer] Address [address] [place] [address] 7t [place] [address] Care Team Providers Care Public Bath Attendant Name Role Phone Leelee Yanes MD Primary Care Provider + Reason for Visit * Reason Comments Med Refill Encounter Details Date Type Department Care Team ([facility] st Contact Info) Description 06/05/2023 Refill [facility] MEDICINE [address] [place] [address] Leelee Yanes MD [address] [place] [address] Lumbar radiculopathy; Primary osteoarthritis of left knee; [...] Info) Description 09/06/2024 12:15 PM EDT Telemedicine [facility] MEDICINE [address] [place] [phone] Leelee Yanes MD [address] [place] [address] 10/03/2024 11:30 AM EDT Clinical Support [facility] MEDICINE [address] [place] [phone] Yoana Perry RN 12/06/2024 3:00 PM EDT Office Visit [facility] OPTOMETRY [address] [place] [address] Karly Bradford, OD [address] [place] [address] documented as of this encounter Visit Diagnoses Diagnosis Lumbar radiculopathy Thoracic or lumbosacral neuritis or radiculitis, unspecified Primary osteoarthritis of left knee Acute bilateral low back pain, unspecified whether sciatica present documented in this encounter Additional Health Concerns Assessment Noted Time PHQ-9 Depression Total Score: 16 024 9:59 AM EST documented as of this encounter Care Teams Public Bath Attendant Relationship Specialty Start Date End Date Leelee Yanes MD [address] [place] [phone] PCP - General Family Medicine 06/11/20 documented as of this encounter
--- OUTSIDE RECORDS SUMMARY | 2024-09-04 12:40 | XMS_ITS | Encounter Summary ---
Author Organization [employer] Address [address] [place] [address] 7t [place] [address] Care Team Providers Care Data Warehouse Architect Name Role Phone Leelee Ynaes MD Primary Care Provider + Reason for Visit * Reason Comments Med Refill Encounter Details Date Type Department Care Team (Late Contact Info) Description 06/25/2022 Refill [facility] MEDICINE [address] [place] [phone] Marbella Carlin DO [address] [place], [place] [phone] Acute bilateral low back pain, unspecified whether [...] Upcoming Encounters Date Type Department Care Team ([facility] Contact Info) Description 09/06/2024 12:15 PM EDT Telemedicine [facility] MEDICINE [address] [place] [address] Leelee Yanes MD [address] [place], [place] [phone] 10/03/2024 11:30 AM EDT Clinical Support [facility] MEDICINE [address] [place], [place] [phone] Yoana Perry, ESTEFANÍA 12/06/2024 3:00 PM EDT Office Visit [facility] OPTOMETRY [address] [place], [place] [phone] Karly Bradfodr, OD [address] [place] [address] documented as of this encounter Visit Diagnoses Diagnosis Acute bilateral low back pain, unspecified whether sciatica present documented in this encounter Care Teams Data Warehouse Architect Relationship Specialty Start Date End Date Leelee Yanes MD [address] [place], [place] [phone] PCP - General Family Medicine 06/11/20 documented as of this encounter
--- OUTSIDE RECORDS SUMMARY | 2024-09-04 12:40 | XMS_ITS | Encounter Summary ---
Author Organization [employer] Address [address] [place] [address] 7t [place] [address] Care Team Providers Care Physical Medicine Physician Name Role Phone Leelee Yanes MD Primary Care Provider + Reason for Visit * Reason Comments Med Refill Encounter Details Date Type Department Care Team (Late Contact Info) Description 07/12/2022 Refill [facility] MEDICINE [address] [place] [phone] Name, MD Charles [address] [place] [address] Acute bilateral low back pain, unspecified whether [...] [facility] MED[facility]INE [address] [place] [address] Leelee Yanes MD [address] [place] [address] 10/03/2024 11:30 AM EDT Clinical Support [facility] MED[facility]INE [address] [place], [place] [phone] Yoana Perry, ESTEFANÍA 12/06/2024 3:00 PM EDT Office Visit [facility] OPTOMETRY [address] [place], [place] [phone] Karly Bradford, OD [address] [place], [place] [phone] documented as of this encounter Visit Diagnoses Diagnosis Acute bilateral low back pain, unspecified whether sciatica present documented in this encounter Care Teams Physical Medicine Physician Relationship Specialty Start Date End Date Leelee Yanes MD [address] [place], [place] [phone] PCP - General Family Medicine 06/11/20 documented as of this encounter
--- OUTSIDE RECORDS SUMMARY | 2024-09-04 12:40 | XMS_ITS ---
Author Organization [facility] Address [address] [place] [phone] Care Team Providers Care Manufacturing Development Engineer Name Role Phone Farzana KELLY, Leelee Primary Care Provider Unavail Shay Ashraf [phone] Encounters Encounter Location Date Provider Diagnosis [facility] [address] [place] [phone] 08/07/2024 Shay Araya Plan Of Treatment Next Appt Details Provider Name:Shay Araya , 11/15/2024 11:00:00 AM, [address] [place] [address] , [place], [place], [phone], Progress Notes * ERWIN HARRIS NDOB:1965 (58 yo F)Acc No.[id number]:08/07/2024 Patient:?ERWIN HARRIS :1965???Age:58 Y???Sex:Female Address:[address] [place] [address] * true * Date:? Generated for Printi ng/Claritag/eTransmitting on:?09/04/2024 12:39 PM EDT
--- OUTSIDE RECORDS SUMMARY | 2024-09-04 12:40 | XMS_ITS | Encounter Summary ---
Author Organization [employer] Address [address] [place] [address] 7t [place] [address] Care Team Providers Care Corporate Associate Name Role Phone Leelee Yanes MD Primary Care Provider + Reason for Visit * Reason Onset Date Comments ER Follow-up 09/03/2024 Encounter Details Date Type Department Care Team ([facility] st Contact Info) Description 09/03/2024 Telephone [facility] MEDICINE [address] [place], [place] [phone] Leelee Yanes MD [address] [place], [place] [phone] ER Follow-up Social History Tobacco Use Types Packs/Day Years [...] encounter Miscellaneous Notes * Telephone Encounter - Mariam Berkowitz RN - 09/04/2024 10:04 AM EDT See previous note * Telephone Encounter - Ge Mayorga - 09/03/2024 2:22 PM EDT Patient calling to report ED visit on : Date: Hospital: [facility] Seen for: Body tingling Symptomatic No *if yes message should go to Triage Patient advised will forward to team nurse for follow up documented in this encounter Plan of Treatment Upcoming Encounters Date Type Department Care Team (Late st Contact Info) Description 09/06/2024 12:15 PM EDT Telemedicine [facility] MEDICINE [address] [place] [phone] Leelee Yanes MD [address] [place] [address] 10/03/2024 11:30 AM EDT Clinical Support [facility] MED[facility]INE [address] [place] [phone] Yoana Perry RN 12/06/2024 3:00 PM EDT Office Visit [facility] OPTOMETRY [address] [place] [address] Karly Bradford, OD [address] [place] [address] documented as of this encounter Visit Diagnoses Not on filedocumented in this encounter Additional Health Concerns Assessment Noted Time PHQ-9 Depression Total Score: 16 024 9:59 AM EST documented as of this encounter Care Teams Corporate Associate Relationship Specialty Start Date End Date Leelee Yanes MD [address] [place] [address] PCP - General Family Medicine 06/11/20 documented as of this encounter
--- OUTSIDE RECORDS SUMMARY | 2024-09-04 12:40 | XMS_ITS | Data Portability ---
Author Organization [place] [facility] Address [address] [place] [phone] Assessment Encounter Date Assessment Date Assessment LastModified [...] Address Organization Details Recorded Time Chronic hoarseness 6190356881792 Active 2023 YIN DE SANTIAGO MD [address] [facility],[address], [address] 09:20:04 Feeling of lump in throat 004656673 Active 2023 YIN DE SANTIAGO MD 100 [facility], [place], [phone], [facility] - [facility] 4 09:20:10 Obstructive sleep apnea syndrome 77622333 Active 2023 YIN DE SANTIAGO MD [address] [address], [place], [phone], [facility] - [facility] 4 09:20:14 Moderate persistent asthma 597003360 Active 2023 YIN DE SANTIAGO MD [address] [address], [place], [phone], [facility] - [facility] 4 09:20:21 Problem Notes None recorded. Procedures Surgical History Date Name Laterality Status Provider Name and Address Organization Details Recorded Time 4 FOL_Reflux_J MS completed YIN REEVES MD [address] [address], [place], [phone], [facility] - [facility] 11/28/2023 09:22:24 Gastric bypass for obesity completed Dustin Francis [place] [facility] 11/28/2023 09:27:15 Imaging Results None recorded. Procedure [...] Updated DateTime 11/28/2023 154.94 cm 39.9 kg/m2 44791.99 g Dustin Francis [place] - [facility] 11/28/2023 09:01:32 Social History None recorded. Functional Status None recorded. Mental Status None recorded. Family History Nothing Reported. Medical History No medical history recorded. Gynecological HistoryNo gynecological history recorded. Obstetrics History GPAL:G 0 P 0 0 0 0 Past Encounters Encounter ID Performer Location Encounter Start Date Encounter Closed Date Diagnosis/Indication Diagnosis SNOMED-CT Code Diagnosis ICD10 Code Diagnosis Note [id number] YIN ZAVALETA MD [facility] [address] [place] [address] 11/28/2023 08:57:25 11/28/2023 09:25:04 Chronic hoarseness 6436695269 105 R49.0 Feeling of lump in throat 731236981 R09.89 Obstructiv e sleep apnea syndrome 41432541 G47.33 Moderate p ersistent asthma 106117267 J45.40 Health Concerns Section Related Observation LastModified by Organization Detai ls LastModified Time None Recorded Concern Status LastModified by Organization Details LastModified Time None Recorded Advance Directives Directive None Recorded Payers Insurance Date Sequence Insurance Name Policy Number Policy Angel Covered Member ID Angel Member ID Guarantor Name 11/28/2023 1 [place] [facility] Ann-Marie Flores [id number] Ann-Marie Flores Notes Date Note Type Note [...] years.Waiting for colonoscopy YIN REEVES MD [address] [facility],[address] [address], [place], [phone], [place] - [facility] 11/28/2023 09:23:20 OBGyn Episode No OBEpisode recorded.
--- OUTSIDE RECORDS SUMMARY | 2024-09-04 12:40 | XMS_ITS | Clinical Summary ---
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 TAKE 1 TABLET BY MOUTH EVERY DAY 90 tablet 1 024 Active Nystatin powder Use on affected areas bid 1 each 3 024 Active montelukast (Singulair) 10 MG tabletIndication s:Moderate persistent asthma without complication TOME TAYLOR RAMACHANDRAN [place] [facility] ACOSTARSE 90 tablet 3 024 Active loratadine (Claritin) 10 MG tabletIndication s:Seasonal allergies TAKE 1 TABLET BY MOUTH EVERY DAY 90 tablet 1 024 Active fluticasone (Flonase) 50 MCG/ACT nasal sprayIndications :Seasonal allergies SPRAY 2 SPRAYS IN EACH NOSTRIL EVERY MORNING 48 mL 1 024 Active Acetaminophen Extra Strength 500 MG tablet TAKE 1 TABLET BY MOUTH EVERY 8 HOURS IF NEEDED. 90 tablet 024 Active albuterol (2.5 MG/3ML) 0.083% nebulizer solution TAKE 3 ML BY NEBULIZER EVERY 6 HOURS NEEDED FOR COUGH, WHEEZING, OR SHORTNESS OF BREATH 90 mL 1 025 Active naloxone (Narcan) 4 mg/0.1 mL nasal sprayIndications :Chronic back pain, unspecified back location, unspecified back pain laterality Administer 1 spray (4 mg) into affected nostril(s) if needed for opioid reversal. May repeat every 2-3 minutes if needed, alternating nostrils, until medical assistance becomes available. 2 each 3 025 2025 Active glucose blood (FREESTYLE LITE) test stripIndications :Type 2 diabetes mellitus without complication, without long-term current use of insulin ([facility]) USE TO TEST BLOOD SUGAR TWICE A DAY 50 strip 11 025 Active traMADol (Ultram) 50 MG tabletIndication s:Lumbar radiculopathy,Pr imary osteoarthritis of left knee,Acute bilateral low back pain, unspecified whether sciatica present Take 1 tablet (50 mg) by mouth every 12 (twelve) hours if needed for severe pain for up to 28 days. 56 tablet 025 2024 Active azithromycin (Zithromax Z-Clayton) 250 MG tabletIndication s:Moderate persistent asthma with exacerbation Take 2 tabs po x 1 day then 1 tab po daily x 4 days 6 tablet Active Trulicity 1.5 MG/0.5ML solution auto-injector INJECT ONE PEN (=1.5MG) SUBCUTANEOUSLY ONCE A WEEK DIRECTED 2 mL 3 Active Dulaglutide (Trulicity) 1.5 MG/0.5ML solution auto-injector Inject 1.5 mg under the skin 1 (one) time per week. 2 mL 3 025 2024 Discontinued traMADol (Ultram) 50 MG tabletIndication s:Lumbar radiculopathy,Pr imary osteoarthritis of left knee,Acute bilateral low back pain, unspecified whether sciatica present Take 1 tablet (50 mg) by mouth every 12 (twelve) hours if needed for severe pain for up to 28 days. Do not start before July 11, 2024. 56 tablet 025 2024 Discontinued(R eorder (will not trigger notification to Pharmacy)) guaiFENesin (Robitussin) 100 MG/5ML liquidIndication s:Moderate persistent asthma with exacerbation Take 10 mL (200 mg) by mouth if needed in the morning, at noon, and at bedtime for cough for up to 10 days. 120 mL 025 2024 predniSONE (Deltasone) 20 MG tabletIndication s:Asthma Take 3 tablets (60 mg) by mouth Once per day for 3 days, THEN 2 tablets (40 mg) Once per day for 3 days, THEN 1 tablet (20 mg) Once per day for 2 days, THEN 0.5 tablets (10 mg) Once per day for 2 days. 18 tablet 025 2024 Active Problems Problem Noted Date Diagnosed Date Urge incontinence of urine 03/19/2024 Long-term current use of opiate analgesic 2023 Overview (02/20/2024): Medication: Tramadol 50mg Q12H BID Indication: lumbar radiculopathy, OA bilat knees Last CLIENT RELATION SPECIALIST Agreement: 05/10/23 Assessment & Plan (02/20/2024 8:11 PM EDT): -Today was first group, she will decide if group setting or individual visit with RN is preferred. Scheduled for CLIENT RELATION SPECIALIST group 03/12/24 as requested. -Encouraged multifactorial approach [...] for Utox today, she will fu with CLIENT RELATION SPECIALIST nurse, she's aware that she should be [...] 12:03 PM EDT): Continue close fu with provider take lorazepam the night before surgery [...] has changed from most recent one (see CLIENT RELATION SPECIALIST nurse note). Next refill will be due [...] replaced if lost or stolen. FU with CLIENT RELATION SPECIALIST nurse as scheduled Assessment & Plan (06/24/2022 1:08 PM EST): Continue weight reduction, tylenol 1000mg BID and 500mg tramadol qhs FU with orthopedics recommended use of cane for ambulation counseled regarding compliance with CLIENT RELATION SPECIALIST appointments, utox ordered today was negative pharmaco education regarding opiate use including proper storage, prohibited sharing medications with others, avoid alcohol or other recreational substances counseled to FU closely with CLIENT RELATION SPECIALIST provider. Type 2 diabetes mellitus without complication [...] Encounters Date Type Department Care Team Description 09/04/2024 Telephone [facility] MEDICINE [address] [place] [address] Leelee Yanes MD Error (VOID this visit) 09/04/2024 Telephone [facility] MEDICINE [address] [place] [address] Leelee Yanes MD Results 09/03/2024 Orders Only [facility] WALK-IN CENTER [address] [place] [address] Leelee Yanes MD Hypomagnesemia (Primary Dx); Hypokalemia 09/03/2024 Telephone [facility] [address] [facility] [place] [address] Leelee Yanes MD ER Follow-up 09/02/2024 Orders Only GENERIC EXTERNAL DATA DEPARTMENT Provider, Generic External Data 09/02/2024 Refill [facility] MEDICINE [address] [place] [address] Leelee Yanes MD 08/26/2024 Orders Only [facility] MEDICINE [address] [place] [address] Russ Davis MD 08/26/2024 Telephone [facility] MEDICINE [address] [place] [address] Russ Davis MD Medication Question 08/24/2024 9:40 AM EDT Office Visit [facility] [address] [facility] [place] [address] Russ Davis MD Moderate persistent asthma with exacerbation (Primary Dx); Sore throat 08/13/2024 Refill [facility] MEDICINE [address] [place] [address] Leelee Yanes MD Lumbar radiculopathy; Primary osteoarthritis of left knee; Acute bilateral low back pain, unspecified whether sciatica present 07/12/2024 Population Health Risk Score [facility] ([facility]) Department [address] [place] [address] [phone] Provider, Population Health Generic 07/11/2024 Telephone [facility] MEDICINE [address] [place] [address] Leelee Yanes MD Appointment Request 07/08/2024 Refill [facility] MEDICINE [address] [place] [address] Leelee Yanes MD Lumbar radiculopathy; Primary osteoarthritis of left knee; Acute bilateral low back pain, unspecified whether sciatica present 07/01/2024 Telephone [facility] MEDICINE [address] [place] [address] Leelee Yanes MD [employer] (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, 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 LG) 06/14/2024 Refill [facility] MEDICINE [address] [place] [address] Leelee Yanes MD Type 2 diabetes mellitus without complication, without long-term current use of insulin ([facility]) 06/10/2024 Refill [facility] PEDS [address] [place] [address] Leelee Yanes MD Lumbar radiculopathy; Primary osteoarthritis of left knee; Acute bilateral low back pain, unspecified whether sciatica present 06/10/2024 Refill [facility] MEDICINE [address] [place] [address] Leelee Yanes MD Lumbar radiculopathy; Primary osteoarthritis of left knee; Acute bilateral low back pain, unspecified whether sciatica present from Last 3 Months Immunizations Name Administration [...] Info) Description 09/06/2024 12:15 PM EDT Telemedicine [facility] MEDICINE [address] [place] [address] Leelee Yanes MD [address] [place] [address] 10/03/2024 11:30 AM EDT Clinical Support [facility] MEDICINE [address] [place] [address] Yoana Perry RN 12/06/2024 3:00 PM EDT Office Visit [facility] OPTOMETRY [address] [place] [address] Karly Bradford, OD [address] [place] [address] Health Maintenance Due Date Last Done Comments [...] 02/16/2021, 08/03/2020, 07/13/2020 Influenza Vaccine (#1) 2023 , 05/10/2021, 01/27/2020, Additional history exists Diabetes: Urine [...] Date/Time Associated Diagnosis Comments MAGNESIUM Routine 09/02/2024 7:39 PM EDT BASIC METABOLIC PANEL Routine 09/02/2024 7:39 PM EDT MAGNESIUM Routine 09/02/2024 4:26 PM [...] right ankle, unspecified ligament, sequela Achilles tendinosis BI MAMMOGRAM SCREENING TOMOSYNTHESIS BILATERAL Routine 05/03/2024 10:15 AM EST POCT GLYCATED HEMOGLOBIN, TOTAL Routine 02/20/2024 1:22 PM EDT Type 2 diabetes mellitus without complication, without long-term current use of insulin ([facility]) ALBUMIN, RANDOM URINE W/CREATININE Routine 05/18/2023 8:57 AM EST LIPID PANEL WITH REFLEX TO DIRECT LDL Routine 05/18/2023 8:51 AM EST Essential hypertension from Last 3 Months or Most Recently Relevant to Health Maintenance Results * Magnesium (09/02/2024 7:39 PM EDT) Only the most recent of2 resultswithin the time period is included. Magnesium 1.6 1.6 - 2.6 mg/dL [facility] 09/02/2024 7:39 PM EDT 09/02/2024 7:42 PM EDT us Generic External Data Provider LAB BLOOD ORDERAB LES Final Result [facility] [address] [place] [phone] * (ABNORMAL) Basic Metabolic Panel (09/02/2024 7:39 PM EDT) Sodium 145 135 - 145 mmol/L [facility] Potassium 3.5 3.3 - 5.1 mmol/L [facility] Chloride 101 96 - 108 mmol/L [facility] Carbon Dioxide 33(H) 22 - 29 mmol/L [facility] Anion Gap 15 12 - 20 [facility] Urea Nitrogen (BUN) 13 9 - 16 mg/dL [facility] Creatinine, Serum 0.83 0.5 - 1.4 mg/dL [facility] Creatinine Clr Calc Pharmacy 75.1 [facility] Comment:Provided height and weight: 154.94 cm,93.44 kg.eGFR (calculated from the MDRD study equation) and eCrCl(calculated from the Cockcroft-Gault equation) are based ondifferent parameters and may not yield comparable results.If eCrCl result is absurd, please check patient'sheight/weight. Estimated Glomerular Filt Rate >60 [facility] Comment:Chronic Kidney Disea se: Estimated GFR < 60 mL/min/1.47t0Rjvqox Kidney Disease: Estimated GFR < 15 mL/min/1.73m2 Glucose 92 60 - 115 mg/dL [facility] Calcium 7.4(L) 8.4 - 10.2 mg/dL [facility] 09/02/2024 7:39 PM EDT 09/02/2024 7:42 PM EDT Generic External Data Provider LAB BLOOD ORDERAB LES Final Result Performing Organization Address [facility] Co de Phone Number [facility] [address] [place] [phone] * High Sensitivity Troponin I (09/02/2024 4:26 PM EDT) [facility] TROPONIN I HIGH SENSITIVITY 3.3 <3.5 - 17.0 ng/L [facility] Comment:The Malloy high sens itivity Troponin-I results should beused in conjunction with other diagnostic information suchas ECG, clinical observations and information, and patientsymptoms to aid in the diagnosis of [place]. 09/02/2024 4:26 PM EDT 09/02/2024 4:30 PM EDT Generic External Data Provider LAB BLOOD ORDERAB LES Final Result Performing Organization Address [facility] Co de Phone Number [facility] [address] [place] [phone] * SARS-CoV-2 RNA, Influenza A/B, and RSV RNA, Ql NAAT (09/02/2024 4:26 PM EDT) [facility] Influenza A PCR NEGATIVE Negative [facility] Influenza B PCR NEGATIVE Negative [facility] Resp Syncy Virus RNA Qual PCR NEGATIVE Negative [facility] SARS COV2 PCR NEGATIVE Negative [facility] Comment:All test results mus t be [...] use by authorized laboratories.Testing performed on the [employer] GeneXpert utilizingreal-time RT-PCR.All SARS CoV2 and positive influenza A/B results arereported to [facility]. 09/02/2024 4:26 PM EDT 09/02/2024 4:30 PM EDT Generic External Data Provider LAB MICROBIOLOGY - GENERAL ORDERABLES Final Result [facility] [address] [place] [phone] * (ABNORMAL) CBC auto differential (09/02/2024 4:26 PM EDT) White Blood Count 10.6 4.8 - 10.8 X10*3/uL [facility] Red Blood Count 4.30 4.20 - 5.50 X10*6/uL [facility] Hemoglobin 12.0 12.0 - 16.0 g/dl [facility] Hematocrit 35.7(L) 37.0 - 47.0 % [facility] Mean Corpuscular Volume 83.0 80.0 - 98.0 fL [facility] Mean Corpuscular Hemoglobin 27.9 27.0 - 33.0 pg [facility] Mean Corpuscular HGB Conc 33.6 31.0 - 35.0 g/dl [facility] Red Cell Distribution Width 14.7 11.0 - 16.0 % [facility] Platelet Count 309 160 - 400 X10*3/uL [facility] Mean Platelet Volume 10.1 9.4 - 12.3 fL [facility] Neutrophils Percent Auto 58.3 45 - 73 % [facility] Imm Gran Pct Auto 0.4 0.0 - 0.4 % [facility] Lymphocytes Percent Auto 31.2 20 - 40 % [facility] Monocytes Percent Auto 8.6 2 - 11 % [facility] Eosinophils Percent Auto 1.2 0 - 4 % [facility] Basophils Percent Auto 0.3 0 - 2 % [facility] NRBC Pct Auto 0.0 0.0 - 0.2 /100WBC [facility] Neutrophils Absolute Auto 6.2 2.0 - 8.3 x10*3/uL [facility] Imm Gran Abs Auto 0.04(H) 0.00 - 0.03 X10*3/uL [facility] Lymphocytes Absolute Auto 3.3 1.2 - 4.9 X10*3/uL [facility] Monocytes Absolute Auto 0.9 0.1 - 1.2 X10*3/uL [facility] Eosinophils Absolute Auto 0.1 0.0 - 0.4 X10*3/uL [facility] Basophils Absolute Auto 0.0 0.0 - 0.2 X10*3/uL [facility] NRBC Abs Auto 0.000 0.0 - 0.012 X10*3/uL [facility] 09/02/2024 4:26 PM EDT 09/02/2024 4:30 PM EDT us Generic External Data Provider LAB BLOOD ORDERAB LES Final Result [facility] [address] [place] [phone] * (ABNORMAL) Partial Thromboplastin Time, Activated (APTT) (09/02/2024 4:26 PM EDT) Partial Thromboplastin Time 25.0(L) 26.0 - 36.8 SEC [facility] Comment:For information rega rding the monitoring of direct thrombininhibitors, please refer to Pharmacy. 09/02/2024 4:26 PM EDT 09/02/2024 4:30 PM EDT us Generic External Data Provider LAB BLOOD ORDERAB LES Final Result Performing Organization Address [facility] Co de Phone Number [facility] [address] [place] [phone] * (ABNORMAL) Prothrombin Time-INR (09/02/2024 4:26 PM EDT) Prothrombin Time 10.8(L) 10.9 - 12.4 SEC [facility] INTERNATIONAL NORM RATIO 0.9 0.9 - 1.1 [facility] Comment:INTERNATIONAL NORMAL IZED RATIO (INR) REFERENCE [...] ORDERAB LES Final Result Performing Organization Address City/[facility]/ZIP Co de Phone Number [facility] [address] [place] [phone] * (ABNORMAL) Comprehensive Metabolic Panel (09/02/2024 4:26 PM EDT) Sodium 144 135 - 145 mmol/L [facility] Potassium 3.0(L) 3.3 - 5.1 mmol/L [facility] Chloride 101 96 - 108 mmol/L [facility] Carbon Dioxide 33(H) 22 - 29 mmol/L [facility] Anion Gap 13 12 - 20 [facility] Urea Nitrogen (BUN) 14 9 - 16 mg/dL [facility] Creatinine, Serum 0.85 0.5 - 1.4 mg/dL [facility] Creatinine Clr Calc Pharmacy 73.4 [facility] Comment:Provided height and weight: 154.94 cm,93.44 kg.eGFR (calculated from the MDRD study equation) and eCrCl(calculated from the Cockcroft-Gault equation) are based ondifferent parameters and may not yield comparable results.If eCrCl result is absurd, please check patient'sheight/weight. Estimated Glomerular Filt Rate >60 [facility] Comment:Chronic Kidney Disea se: Estimated GFR < 60 mL/min/1.65f0Oefyee Kidney Disease: Estimated GFR < 15 mL/min/1.73m2 Glucose 96 60 - 115 mg/dL [facility] Calcium 7.6(L) 8.4 - 10.2 mg/dL [facility] Bilirubin, Total 0.3 0.0 - 1.0 mg/dL [facility] Aspartate Amino Transferase 24 5 - 31 U/L [facility] Alanine Aminotransferase 33(H) 0 - 31 U/L [facility] Total Protein 6.8 6.5 - 8.0 g/dL [facility] Albumin Level 3.7 3.5 - 5.0 g/dL [facility] Alkaline Phosphatase 100 39 - 117 U/L [facility] 09/02/2024 4:26 PM EDT 09/02/2024 4:30 PM EDT us Generic External Data Provider LAB BLOOD ORDERAB LES Final Result [facility] [address] [place] [phone] * CT Head w/o Contrast (09/02/2024 4:11 PM EDT) Anatomical Region Laterality Modality Head, Neck Computed Tomogra phy 09/02/2024 4:11 PM EDT Narrative 09/02/2024 4:30 PM EDT ? [facility] ?[address] ?[place] [address] ? CT Scan Report ? Signed ? Patient: Flores,Ann-Marie N ?MR#: [id number] ?? 6 ? : 1965 ?Acct:[id number] ? Age/Sex: 58 / F ?ADM Date: 09/02/24 ? Loc: HO.ED ? Attending Dr: ? Ordering Physician: Edgard Gray ?? Date of Service: 09/02/24 ?? Procedure(s): CT head/brain wo IV con ?? Accession Number(s): [id number] ? cc: Edgard Gray; Leelee Yanes MD ? Report Number: ?? [id number]: Total DLP = ??657.00 mGy-cm ?? EXAMINATION: [...] by Sean Hernandez MD in OV> ?09/02/24 1627 ? DD/ 1611 ? TD/TT: 09/02/24 1621 ? Reel Tender: ? Procedure Note Donmanuelater, Image - 09/02/[address] [place] [address] [address] Scan Report Signed Patient: Ann-Marie Flores NMR#: [id number] 6 : 1965Acct:[id number] Age/Sex: 58 / FADM Date: 09/02/24 Loc: HO.ED Attending Dr: Ordering Physician: Edgard Gray Date of Service: 09/02/24 Procedure(s): CT head/brain wo IV con Accession Number(s): [id number] cc: Edgard Gray; Leelee Yanes MD Report Number: [id number]: Total DLP = 657.00 mGy-cm EXAMINATION: CT [...] 09/02/24 1627 DD/ 1611 TD/TT: 09/02/24 1621 Reel Tender: [facility] External Provider IMG CT PROCEDURES Final Result * XR Chest 1 View (09/02/2024 4:04 PM EDT) Anatomical Region Laterality Modality Chest Radiographic Kim ging 09/02/2024 4:04 PM EDT Narrative 09/02/2024 4:21 PM EDT ? [facility] ?[address] ?[place] [address] ?XRay Report ? Signed ? Patient: Flores,Ann-Marie N ?MR#: [id number] ?? 6 ? : 1965 ?Acct:[id number] ? Age/Sex: 58 / F ?ADM Date: 05/05/25 ? Loc: HO.ED ? Attending Dr: ? Ordering Physician: Edgard Gray ?? Date of Service: 09/02/24 ?? Procedure(s): XR chest 1V ?? Accession Number(s): [id number] ? cc: Edgard Gray; Leelee Yanes MD [...] DD/ 1604 ? TD/TT: 09/02/24 1611 ? Reel Tender: ? Procedure Note Farheenlivan, Image - 09/02/2024 [place] [address] XRay Report Signed Patient: Ann-aMrie Flores NMR#: [id number] 6 : 1965Acct:[id number] Age/Sex: 58 / FADM Date: 09/02/24 Loc: HO.ED Attending Dr: Ordering Physician: Edgard Gray Date of Service: 09/02/24 Procedure(s): XR chest 1V Accession Number(s): [id number] cc: Edgard Gray; Leelee Yanes MD EXAMINATION: [...] Sean Hernandez MD 09/02/2024 04:18 PM EDT RP Dictated By: Sean Hrenandez MD Signed By: <Electronically signed by Sean Hernandez MD in OV> 09/02/24 1618 DD/ 1604 TD/TT: 09/02/24 1611 Reel Tender: [facility] External Provider IMG XR PROCEDURES Final Result * POCT Rapid Influenza B MALLOY ID NOW (08/24/2024 9:51 AM EDT) [facility] Influenza B Negative Negative, Indeterminate [facility] QC Media Lot # [id number] [facility] Lot# Expiration Date [facility] Swab 08/24/2024 9:51 AM EDT Russ Diez MD POINT OF CARE TEST EN TER/EDIT ORDERABLES Final Result Performing Organization Address City/[facility] Co de Phone Number [facility] [address] [place] [phone] * POCT Rapid Influenza A MALLOY ID NOW (08/24/2024 9:51 AM EDT) [facility] Influenza A Negative Negative, Indeterminate [facility] QC Media Lot # [id number] [facility] Lot# Expiration Date [facility] Swab 08/24/2024 9:51 AM EDT Russ Diez MD POINT OF CARE TEST EN TER/EDIT ORDERABLES Final Result Performing Organization Address City/[facility] Co de Phone Number [facility] [address] [place] [phone] * POCT Rapid Strep A MALLOY ID NOW (08/24/2024 9:42 AM EDT) [facility] Rapid Strep A Screen Negative Negative, None Detected QC Media Lot # [id number] Lot# Expiration Date ,026 Swab 08/24/2024 9:42 AM EDT Russ Diez MD POINT OF CARE TEST EN TER/EDIT ORDERABLES Final Result * POCT Rapid Covid-19 BinaxNOW (08/24/2024 9:42 AM EDT) [facility] Rapid COVID Ag Negative QC Media Lot # [id number] Lot# Expiration Date ,026 Swab 08/24/2024 9:42 AM EDT Russ Diez MD POINT OF CARE TEST EN TER/EDIT ORDERABLES Final Result * Referral to Orthopaedic Surgery (07/09/2024) Leelee Yanes MD OUTPATIENT REFERRAL ALINA MCCORMICK Edited Result - Final * BI Mammogram Screening Tomosynthesis Bilateral (05/03/2024 10:15 AM EST) Anatomical Region Laterality Modality Breast Bilateral Mammography 05/03/2024 10:1 5 AM EST Narrative 05/12/2024 8:49 AM EST ? [facility] ? [address] ?[place] [id number] ? Mammography Report ? Signed with Addenda ? Patient: Ann-Marie Flores N ?MR#: [id number] ?? 6 ? : 1965 ?Acct:[id number] ? Age/Sex: 58 / F ?ADM Date: /03/25 ? Loc: HO.MAMMO ? Attending Dr: Leelee Yanes MD ? Ordering Physician: Leelee Yanes MD ?Results: 2Be ?? nign Findings ? Date of Service: 05/03/24 ?Follow Up: 1 Year From Orig ?? inal Mammogram ? Procedure(s): MM tomosynthesis screening BI ?? Accession Number(s): [id number] ? cc: Leelee Yanes MD ?ADDENDUM ? [...] 05/27/24 1527 ?? Addendum Cosigned By: ? DD/ [...] ??Tricia German DO ??05/12/2024 08:47 AM EST ?? RP ? Dictated By: ?Tricia German DO ? Signed By: ?<Electronically signed by Tricia German, DO in OV> ? 05/12/24 08 ? DD/ 14 ? TD/TT: 05/03/24 102 ? Reel Tender: ? Procedure Note Donotlaureanointerpreter, Image - 05/27/2024 [facility] [address] [place] [address] Mammography Report Signed with Vannesa Patient: Ann-Marie Flores NMR#: [id number] 6 : 1965Acct:[id number] Age/Sex: 58 / FADM Date: 05/03/24 Loc: HO.MAMMO Attending Dr: Leelee Yanes MD Ordering Physician: Leelee Yanes MDResults: 2Be nign Findings Date of Service: 05/03/24Follow Up: 1 Year From Orig inal Mammogram Procedure(s): MM tomosynthesis screening BI Accession Number(s): [id number] cc: Leelee Yanes MD ADDENDUM ADDENDUM #1 [...] 1527 Addendum Cosigned By: DD/ /23/1014 TD/TT: 01/07/23/1024 EXAMINATION: MM SCREENING DIGITAL BREAST TOMOSYNTHESIS, BILATERAL [...] Tricia German DO 05/12/2024 08:47 AM EST Dictated By: Tricia German DO Signed By: <Electronically signed by Tricia German DO in OV> 05/12/24 0847 DD/ 1015 TD/TT: 05/03/24 1025 Reel Tender: Leelee Yanes MD IMG BI PROCEDURES Edited Result - Final * POCT HGB A1C (02/20/2024 1:22 PM EDT) Hemoglobin A1C 5.7 4.0 - 6.0 % QC Media Lot # [id number] Lot# Expiration Date [id number] Blood 02/20/2024 1:22 PM EDT Leelee Yanes MD POINT OF CARE TEST ENTER /EDIT ORDERABLES Final Result * Albumin, Random Urine W/Creatinine (05/18/2023 8:57 AM EST) Creatinine, Urine 309.29 mg/dL [facility] Microalbumin Urine 9.0 mg/L [facility] Microalbum Creatinine Ratio Ur 2.9 <30 ug/mg cr [facility] Comment:Albumin/Creatinine R atio Reference Ranges: Normal: < 30 ug/mg creatinine Microalbuminuria: 30 - 300 ug/mg creatinineClinical Albuminuria: > 300 ug/mg creatinine 05/18/2023 8:57 AM EST 05/18/2023 11:33 AM EST us Leelee Yanes MD LAB URINE ORDERABLES Fin al Result Performing Organization Address [facility] de Phone Number [facility] [address] [place] [phone] * (ABNORMAL) Lipid Panel with Reflex to Direct LDL (05/18/2023 8:51 AM EST) Triglycerides 278(H) <150 mg/dL [facility] Comment:Desirable Triglyceri de: less than 150 mg/dLBorderline High Triglyceride 150-199 mg/dLHigh Triglyceride: 200-499 mg/dLVery High Triglyceride: greater than or equal to 5OO mg/dL Cholesterol 168 <200 mg/dL [facility] Comment:Desirable Cholestero l: less than 200 mg/dLBorderline High Cholesterol: 200-239 mg/dLHigh Cholesterol: greater than 239 mg/dL LDL Cholesterol Calculated 77 <100 mg/dL [facility] Comment:Desirable LDL: less than 100 mg/dLNear Optimal/Above Optimal LDL: 110- 129 mg/dLBorderline High LDL: 130-159 mg/dLHigh LDL: 160-189 mg/dLVery High LDL: greater than or equal to 190 mg/dL HDL Cholesterol 36(L) >40 mg/dL [facility] Comment:Desirable HDL: great er than 40 mg/dL Note: This HDL assay may give artificially low results in patients with liver disease. 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
--- OUTSIDE RECORDS SUMMARY | 2024-09-04 12:40 | XMS_ITS | Encounter Summary ---
Author Organization [employer] Address [address] [place] [address] 7t [place] [address] Care Team Providers Care Police Crime Scene Technician Name Role Phone Leelee Yanes MD Primary Care Provider + Encounter Details Date Type Department Care Team (Late st Contact Info) Description 05/18/2022 Orders Only [facility] [address] [place] [phone] Ghada Isidro LPN Social History Tobacco Use [...] Info) Description 09/06/2024 12:15 PM EDT Telemedicine [facility] [address] [place] [address] Leelee Yanes MD [address] [place] [address] 10/03/2024 11:30 AM EDT Clinical Support [facility] [address] [place] [address] Yoana Perry, ESTEFANÍA 12/06/2024 3:00 PM EDT Office Visit [facility] OPT[facility] [address] [place] [address] Karly Bradford OD [address] [place] [address] documented as of this encounter Visit Diagnoses Not on filedocumented in this encounter Care Teams Police Crime Scene Technician Relationship Specialty Start Date End Date Leelee Yanes MD [address] [place] [address] PCP - General Family Medicine 06/11/20 documented as of this encounter
--- OUTSIDE RECORDS SUMMARY | 2024-09-04 12:40 | XMS_ITS | Encounter Summary ---
Author Organization [employer] Address [address] [place] [address] 7t [place] [address] Care Team Providers Care Computer Engineer Name Role Phone Leelee Yanes MD Primary Care Provider + Reason for Visit * Reason Comments Med Refill Encounter Details Date Type Department Care Team ([facility] st Contact Info) Description 06/05/2023 Refill [facility] [address] [place] [address] Leelee Yanes MD [address] [place] [address] Lumbar radiculopathy; Primary osteoarthritis of left knee; [...] Info) Description 09/06/2024 12:15 PM EDT Telemedicine [facility] [address] [place] [address] Leelee Yanes MD [address] [place] [address] 10/03/2024 11:30 AM EDT Clinical Support [facility] [address] [place] [address] Yoana Perry RN 12/06/2024 3:00 PM EDT Office Visit [facility] OPTOMETRY [address] [place] [address] Karly Bradford, OD [address] [place] [address] documented as of this encounter Visit Diagnoses Diagnosis Lumbar radiculopathy Thoracic or lumbosacral neuritis or radiculitis, unspecified Primary osteoarthritis of left knee Acute bilateral low back pain, unspecified whether sciatica present documented in this encounter Additional Health Concerns Assessment Noted Time PHQ-9 Depression Total Score: 16 024 9:59 AM EST documented as of this encounter Care Teams Computer Engineer Relationship Specialty Start Date End Date Leelee Yanes MD [address] [place] [address] PCP - General Family Medicine 06/11/20 documented as of this encounter
--- OUTSIDE RECORDS SUMMARY | 2024-09-04 12:40 | XMS_ITS | Encounter Summary ---
Author Organization [employer] Address [address] [place] [address] 7t [place] [address] Care Team Providers Care Gutter Mouth Cutter Name Role Phone Leelee Yanes MD Primary Care Provider + Reason for Visit * Reason Onset Date Comments Nurse Triage 03/26/2024 Encounter Details Date Type Department Care Team ([facility] st Contact Info) Description 03/26/2024 Telephone [facility]INE [address] [place] [address] Leelee Yanes MD [address] [place] [address] Nurse Triage Social History Tobacco Use Types [...] PM EST Triage call with [facility] [place] [id number] , Prateek, Pt didn't answer. Left voice message to call [facility] [phone] * Telephone Encounter - Nader Hernandez - 03/26/2024 4:46 PM EST Symptom: Dizziness Outcome: Talk to a nurse or provider within 15 minutes Reason: Trouble walking The caller accepted this outcome. Amharic Speaking documented in this encounter Plan of Treatment Upcoming Encounters Date Type Department Care Team (Late st Contact Info) Description 09/06/2024 12:15 PM EDT Telemedicine [address] [phone] Leelee Yanes MD [address] [place] [address] 10/03/2024 11:30 AM EDT Clinical Support [address] [address] Yoana Perry RN 12/06/2024 3:00 PM EDT Office Visit [facility] OPTOMETRY [address] [place] [address] Karly Bradford, ART [address] [place] [address] documented as of this encounter Visit Diagnoses Not on filedocumented in this encounter Additional Health Concerns Assessment Noted Time PHQ-9 Depression Total Score: 16 024 9:59 AM EST documented as of this encounter Care Teams Gutter Mouth Cutter Relationship Specialty Start Date End Date Leelee Yanes MD [address] [place] [address] PCP - General Family Medicine 06/11/20 documented as of this encounter
--- OUTSIDE RECORDS SUMMARY | 2024-09-04 12:40 | XMS_ITS | Encounter Summary ---
Author Organization [employer] Address [address] [place] [address] 7t [place] [address] Care Team Providers Care Microfilm Machine Operator Name Role Phone Leelee Yanes MD Primary Care Provider + Reason for Visit * Reason Onset Date Comments Results 09/04/2024 Encounter Details Date Type Department Care Team ([facility] st Contact Info) Description 09/04/2024 Telephone [facility] MEDICINE [address] [place] [address] Leelee Yanes MD [address] [place] [address] Results Social History Tobacco Use Types Packs/Day Years [...] Encounter - Mariam Berkowitz RN - 09/04/2024 9:51 AM EDT TC placed to patient [phone] regarding below message. RN status checked patient . Patient was seen the ED on 09/02/24 for numbness and paresthesia. Patient informed RN numbness and paraesthesia has subsided, denies any complaints at this time. RN informed patient her PCP ordered f/u labs and to be obtained. RN advised patient if her symptoms return to go to the ED for further evaluation. Patient requested an appt to see her PCP. RN scheduled a Tele visit appt for 09/06/2024 at 1215. Pt verbalized understanding. Pt to F/U PRN. * Telephone Encounter - Mariam Berkowitz RN - 09/04/2024 9:38 AM EDT ----- Message from Leelee Yanes MD sent at 09/03/2024 7:44 PM EDT ----- Labs on 09/02/2024 at [facility] as significant malignancies magnesium, K, calcium, thyroid parenteral. at the ED which were apparently repleted. Please call patient for follow-up health status check, see if symptoms of numbness and paresthesia have improved and ask her to repeat BMP, schedule a follow-up ED visit if needed. documented in this encounter Plan of Treatment Upcoming Encounters Date Type Department Care Team (Late st Contact Info) Description 09/06/2024 12:15 PM EDT Telemedicine [facility] MEDICINE [address] [place] [address] Leelee Yanes MD [address] [place] [address] 10/03/2024 11:30 AM EDT Clinical Support [facility]ICINE [address] [place] [address] Yoana Perry RN 12/06/2024 3:00 PM EDT Office Visit [facility] OPTOMETRY [address] [place], [place] [phone] Sanchez, Karly, OD [address] [place] [address] documented as of this encounter Visit Diagnoses Not on filedocumented in this encounter Additional Health Concerns Assessment Noted Time PHQ-9 Depression Total Score: 16 024 9:59 AM EST documented as of this encounter Care Teams Microfilm Machine Operator Relationship Specialty Start Date End Date Leelee Yanes MD [address] [place] [address] PCP - General Family Medicine 06/11/20 documented as of this encounter
--- OUTSIDE RECORDS SUMMARY | 2024-09-04 12:40 | XMS_ITS | Encounter Summary ---
Author Organization [employer] Address [address] [place] [address] 7t [place] [address] Care Team Providers Care It Operations Manager Name Role Phone Leelee Yanes MD Primary Care Provider + Reason for Visit * Reason Onset Date Comments Schedule SALES MANAGER Renewal Appt 03/13/2024 Med Refill 03/13/2024 Encounter Details Date Type Department Care Team (Late st Contact Info) Description 03/13/2024 Refill [facility] [address] [place] [address] Leelee Yanes MD [address] [place] [address] Lumbar radiculopathy; Primary osteoarthritis of left knee; [...] TC to patient, translation provided by Pierre spanish medical interpreter, pt c/o dizziness, headache andvomiting since yesterday. Scheduled to come to [facility] today for evaluation. SALES MANAGER Renewal scheduled for 04/22/24 @ 10:30am. * Telephone Encounter - Nettie Smith - 03/13/2024 11:42 AM EST Tc from pt requesting to speak to SALES MANAGER nurse regarding medication. Contact pt at [phone] (kazakh) documented in this encounter Plan of Treatment Upcoming Encounters Date Type Department Care Team (Late st Contact Info) Description 09/06/2024 12:15 PM EDT Telemedicine [facility] [address] [place] [address] Leelee Yanes MD [address] [place] [address] 10/03/2024 11:30 AM EDT Clinical Support [facility] [address] [place] [address] Yoana Perry, ESTEFANÍA 12/06/2024 3:00 PM EDT Office Visit [facility] OPTOMETRY [address] [place], [place] [phone] Karly Bradford, OD [address] [place] [address] documented as of this encounter Visit Diagnoses Diagnosis Lumbar radiculopathy Thoracic or lumbosacral neuritis or radiculitis, unspecified Primary osteoarthritis of left knee Acute bilateral low back pain, unspecified whether sciatica present documented in this encounter Additional Health Concerns Assessment Noted Time PHQ-9 Depression Total Score: 16 024 9:59 AM EST documented as of this encounter Care Teams It Operations Manager Relationship Specialty Start Date End Date Leelee Yanes MD [address] [place] [address] PCP - General Family Medicine 06/11/20 documented as of this encounter
--- OUTSIDE RECORDS SUMMARY | 2024-09-04 12:40 | XMS_ITS | Encounter Summary ---
Author Organization [employer] Address [address] [place] [address] 7t [place] [address] Care Team Providers Care Copyholder Name Role Phone Leelee Yanes MD Primary Care Provider + Reason for Visit * Reason Comments Med Refill Encounter Details Date Type Department Care Team ([facility] st Contact Info) Description 05/22/2024 Refill [facility] [address] [place] [address] Leelee Yanes MD 230 [place], [place] [phone] Type 2 diabetes mellitus without complication, without long-term current use of insulin ([facility]) Social History Tobacco Use Types Packs/Day Years [...] Info) Description 09/06/2024 12:15 PM EDT Telemedicine [facility] [address] [place] [address] Leelee Yanes MD [address] [place] [address] 10/03/2024 11:30 AM EDT Clinical Support [facility] [address] [place] [address] Yoana Perry RN 12/06/2024 3:00 PM EDT Office Visit [facility] OPTOMETRY [address] [place] [address] Karly Bradford, OD [address] [place] [address] documented as of this encounter Visit Diagnoses Diagnosis Type 2 diabetes mellitus without complication, without long-term current use of insulin ([facility]) documented in this encounter Additional Health Concerns Assessment Noted Time PHQ-9 Depression Total Score: 16 024 9:59 AM EST documented as of this encounter Care Teams Copyholder Relationship Specialty Start Date End Date Leelee Yanes MD [address] [place] [address] PCP - General Family Medicine 06/11/20 documented as of this encounter
--- OUTSIDE RECORDS SUMMARY | 2024-09-04 12:40 | XMS_ITS | Encounter Summary ---
Author Organization [employer] Address [address] [facility] 7t [place] [address] Care Team Providers Care Manufacturing Engineer Supervisor Name Role Phone Leelee Yanes MD Primary Care Provider + Encounter Details Date Type Department Care Team ([facility] st Contact Info) Description 09/03/2024 Orders Only [facility] [address] [place] [address] Leelee Yanes MD [address] [place] [address] Hypomagnesemia (Primary Dx); Hypokalemia Social History Tobacco Use Types Packs/Day Years [...] Info) Description 09/06/2024 12:15 PM EDT Telemedicine [facility] [address] [place] [address] Leelee Yanes MD 230 [place] [address] 10/03/2024 11:30 AM EDT Clinical Support [facility] [address] [place], [place] [phone] Yoana Perry RN 12/06/2024 3:00 PM EDT Office Visit [facility] OPTOMETRY [address], [place] [phone] Karly Bradford, OD [address] [place] [address] Scheduled Orders Name Type Priority Associated Diagnoses Orde r Schedule Basic Metabolic Panel Lab Routine Hypokalemia Expected: 09/03/2024 (Approximate), Expires: 09/03/2025 Magnesium Lab Routine Hypomagnesemia Expected: 09/03/2024, Expires: 09/03/2025 documented as of this encounter Visit Diagnoses Diagnosis Hypomagnesemia- Primary Disorders of magnesium metabolism Hypokalemia Hypopotassemia documented in this encounter Additional Health Concerns Assessment Noted Time PHQ-9 Depression Total Score: 16 024 9:59 AM EST documented as of this encounter Care Teams Manufacturing Engineer Supervisor Relationship Specialty Start Date End Date Leelee Yanes MD [address] [place] [address] PCP - General Family Medicine 06/11/20 documented as of this encounter
--- OUTSIDE RECORDS SUMMARY | 2024-09-04 12:40 | XMS_ITS | Encounter Summary ---
Author Organization [employer] Address [address] [place] [address] 7t [place] [address] Care Team Providers Care Stem Threshing Machine Operator Name Role Phone Leelee Yanes MD Primary Care Provider + Encounter Details Date Type Department Care Team (Late st Contact Info) Description 05/03/2022 Orders Only [facility] [address] [place], [place] [phone] Marbella Munoz LPN Social History Tobacco Use [...] 09/06/2024 12:15 PM EDT Telemedicine [facility] MEDICINE [address] [place] [phone] Leelee Yanes MD [address] [place] [address] 10/03/2024 11:30 AM EDT Clinical Support [facility] MEDICINE [address] [place] [address] [phone] Yoana Perry, ESTEFANÍA 12/06/2024 3:00 PM EDT Office Visit [facility] OPTOMETRY [address] [place] [address] Karly Bradford, ART [address] [place] [address] documented as of this encounter Visit Diagnoses Not on filedocumented in this encounter Care Teams Stem Threshing Machine Operator Relationship Specialty Start Date End Date Leelee Yanes MD [address] [place] [address] PCP - General Family Medicine 06/11/20 documented as of this encounter
--- OUTSIDE RECORDS SUMMARY | 2024-09-04 12:40 | XMS_ITS | Encounter Summary ---
Author Organization [employer] Address [address] [place] [address] 7t [place] [address] Care Team Providers Care Ecommerce Project Manager Name Role Phone Leelee Yanes MD Primary Care Provider + Reason for Visit * Reason Onset Date Comments Med Refill 05/24/2024 Encounter Details Date Type Department Care Team ([facility] st Contact Info) Description 05/24/2024 Telephone [facility] [address] [place], [place] [phone] Leelee Yanes MD [address] [place] [address] Med Refill Social History Tobacco Use Types [...] MG/0.5ML solution pen-injector To be sent to: [facility] - [place], [place] - [address] [facility] PT DOES NOT HAVE ANY MEDICATION LEFT documented in this encounter Plan of Treatment Upcoming Encounters Date Type Department Care Team ([facility] st Contact Info) Description 09/06/2024 12:15 PM EDT Telemedicine [facility] MEDICINE [address] [place] [address] Leelee Yanes MD [address] [place] [address] 10/03/2024 11:30 AM EDT Clinical Support [facility] MED[facility]INE [address] [place] [address] Yoana Perry, ESTEFANÍA 12/06/2024 3:00 PM EDT Office Visit [facility] OPTOMETRY [address] [place] [address] Karly Bradford, OD [address] [place] [address] documented as of this encounter Visit Diagnoses Not on filedocumented in this encounter Additional Health Concerns Assessment Noted Time PHQ-9 Depression Total Score: 16 024 9:59 AM EST documented as of this encounter Care Teams Ecommerce Project Manager Relationship Specialty Start Date End Date Leelee Yanes MD [address] [place] [address] PCP - General Family Medicine 06/11/20 documented as of this encounter
--- OUTSIDE RECORDS SUMMARY | 2024-09-04 12:40 | XMS_ITS | Encounter Summary ---
Author Organization [employer] Address [address] [facility] 7t [place] [address] Care Team Providers Care Fish Seiner Name Role Phone Leelee Yanes MD Primary Care Provider + Reason for Visit * Reason Comments Med Refill Encounter Details Date Type Department Care Team (Late st Contact Info) Description 03/07/2023 Refill [facility] [address] [place] [address] Yulia Perez MD [address] [place] [address] Lumbar radiculopathy; Primary osteoarthritis of left knee; [...] Info) Description 09/06/2024 12:15 PM EDT Telemedicine [facility] [address] [place] [address] Leelee Yanes MD [address] [place] [address] 10/03/2024 11:30 AM EDT Clinical Support [facility] [address] [place] [address] Yoana Perry, ESTEFANÍA 12/06/2024 3:00 PM EDT Office Visit [facility] OPTOMETRY [address] [place], [place] [phone] Karly Bradford, OD [address] [place] [address] documented as of this encounter Visit Diagnoses Diagnosis Lumbar radiculopathy Thoracic or lumbosacral neuritis or radiculitis, unspecified Primary osteoarthritis of left knee Acute bilateral low back pain, unspecified whether sciatica present documented in this encounter Additional Health Concerns Assessment Noted Time PHQ-9 Depression Total Score: 14 023 9:55 AM EDT documented as of this encounter Care Teams Fish Seiner Relationship Specialty Start Date End Date Leelee Yanes MD [address] [place] [address] PCP - General Family Medicine 06/11/20 documented as of this encounter
--- OUTSIDE RECORDS SUMMARY | 2024-09-04 12:40 | XMS_ITS | Clinical Summary ---
Author Organization [facility] Address 175 [place] [address] Phone Care Team Providers Care Parts Order And Stock Clerk Name Role Phone Leelee Yanes MD Primary Care Provider + [phone] Allergies No known active allergies Medications acetaminophen [...] complication, without long-term current use of insulin ([facility] V24, [facility] V28) 05/07/2024 Dysphonia 05/07/2024 Primary [...] 2:00 PM EDT Office Visit [facility] [address] [phone] Sudeep De La Vega, DPM Controlled type 2 diabetes with neuropathy (CMS/[facility] V24, CMS/HCC V28) (Primary Dx); Arthritis of both feet; PAD (peripheral artery disease) ([facility] V24); Dermatophytosis, nail 07/12/2024 2:15 PM EDT Office Visit [facility] [address] [phone] Sudeep De La Vega, DPM Pain in left foot (Primary Dx); Open wound of left great toe, subsequent encounter 07/04/2024 1:30 PM EST Office Visit [facility] [address] [phone] Sudeep De La Vega, DPM Open wound of left great toe, initial encounter (Primary Dx); Cellulitis of left foot 07/01/2024 2:15 PM EST Office Visit [facility] [address] [phone] Sudeep De La Vega, DPM Pain in left foot (Primary Dx); Cellulitis of left foot 06/20/2024 10:30 AM EST Office Visit [facility] [address] [phone] Sudeep De La Vega, DPM Cellulitis of left foot (Primary Dx); Ingrown left big toenail; Ingrown right big toenail 06/20/2024 Telephone [facility] [address] [phone] Sudeep De La Vega DPM from Last [...] Upcoming Encounters Date Type Department Care Team ([facility] st Contact Info) Description 10/24/2024 3:00 PM EDT Office Visit Orthopedic Surgery - [place] [address] [phone] Sudeep De La Vega DPM [address] [address] Health Maintenance Due Date Last Done Comments [...] topic Insurance MEDICAID - [place] Care Teams Parts Order And Stock Clerk Relationship Specialty Start Date End Date Leelee Yanes MD [address] [place] [phone] PCP - General 06/02/23
--- OUTSIDE RECORDS SUMMARY | 2024-09-04 12:41 | XMS_ITS | Encounter Summary ---
Author Organization [employer] Address [address] [place] [address] 7t [place] [address] Care Team Providers Care Semiconductor Packages Sealer Name Role Phone Leelee Yanes MD Primary Care Provider + Reason for Visit * Reason Comments Med Refill Encounter Details Date Type Department Care Team (Late Contact Info) Description 01/06/2023 Refill [facility] [address] [place] [phone] Leelee Yanes MD [address] [place], [place] [phone] Lumbar radiculopathy; Primary osteoarthritis of left knee; [...] 09/06/2024 12:15 PM EDT Telemedicine [facility]ICINE [address] [place] [phone] Leelee Yanes MD [address] [place] [address] 10/03/2024 11:30 AM EDT Clinical Support [facility] 230 [place] [address] Yoana Perry, ESTEFANÍA 12/06/2024 3:00 PM EDT Office Visit [facility] OPTOMETRY [address] [place] [address] Karly Bradford, OD 230 [place] [address] documented as of this encounter Visit Diagnoses Diagnosis Lumbar radiculopathy Thoracic or lumbosacral neuritis or radiculitis, unspecified Primary osteoarthritis of left knee Acute bilateral low back pain, unspecified whether sciatica present documented in this encounter Additional Health Concerns Assessment Noted Time PHQ-9 Depression Total Score: 14 023 9:55 AM EDT documented as of this encounter Care Teams Semiconductor Packages Sealer Relationship Specialty Start Date End Date Leelee Yanes MD 230 [place] [address] PCP - General Family Medicine 06/11/20 documented as of this encounter
--- OUTSIDE RECORDS SUMMARY | 2024-09-04 12:41 | XMS_ITS | Encounter Summary ---
Author Organization [employer] Address 75 [facility] 7t [place] [address] Care Team Providers Care Construction Supervisor/Carpenter Name Role Phone Leelee Yanes MD Primary Care Provider + Reason for Visit * Reason Comments Med Refill Encounter Details Date Type Department Care Team (Late Contact Info) Description 09/04/2022 Refill [facility] [address] [place] [address] Leelee Yanes MD 230 [place] [address] [facility] current use of diuretic Social History Tobacco [...] Info) Description 09/06/2024 12:15 PM EDT Telemedicine [facility] 230 [place] [address] Leelee Yanes MD [address] [place] [address] 10/03/2024 11:30 AM EDT Clinical Support [facility] [address] [place] [address] Yoana Perry, ESTEFANÍA 12/06/2024 3:00 PM EDT Office Visit [facility] [address] [place] [address] Sanchez, Karly, OD 230 [place] [address] documented as of this encounter Visit Diagnoses Diagnosis terminal operations supervisor current use of diuretic documented in this encounter Additional Health Concerns Assessment Noted Time PHQ-9 Depression Total Score: 14 023 9:55 AM EDT documented as of this encounter Care Teams Construction Supervisor/Carpenter Relationship Specialty Start Date End Date Leelee Yanes MD [address] [place] [phone] PCP - General Family Medicine 06/11/20 documented as of this encounter
--- OUTSIDE RECORDS SUMMARY | 2024-09-04 12:41 | XMS_ITS | Encounter Summary ---
Author Organization [employer] Address 75 [facility] 7t [place] [address] Care Team Providers Care Credit Risk Officer Name Role Phone Leelee Yanes MD [...] as of this encounter Miscellaneous Notes * Result Encounter Note - Leelee Yanes MD - 09/02/2024 4:32 PM EDT Labs on 09/02/2024 at [facility] as significant malignancies magnesium, K, calcium, [...] Info) Description 09/06/2024 12:15 PM EDT Telemedicine [facility] [address] [place] [address] Leelee Yanes MD 230 [place] [address] 10/03/2024 11:30 AM EDT Clinical Support [facility] [address] [place] [address] Yoana Perry RN 12/06/2024 3:00 PM EDT Office Visit [facility] OPTOMETRY [address] [place] [address] Karly Bradford, OD 230 [place] [address] documented as of this encounter Procedures Procedure Name Priority Date/Time Associated Diagnosis Comments MAGNESIUM Routine 09/02/2024 7:39 PM EDT BASIC METABOLIC PANEL Routine 09/02/2024 7:39 PM EDT HIGH SENSITIVITY TROPONIN I Routine [...] EDT documented in this encounter Results * Magnesium (09/02/2024 7:39 PM EDT) Magnesium 1.6 1.6 - 2.6 mg/dL [facility] 09/02/2024 7:39 PM EDT 09/02/2024 7:42 PM EDT us Generic External Data Provider LAB BLOOD ORDERAB LES Final Result [facility] [address] [place], [place] [phone] * (ABNORMAL) Basic Metabolic Panel (09/02/2024 7:39 PM EDT) Sodium 145 135 - 145 mmol/L [facility] Potassium 3.5 3.3 - 5.1 mmol/L [facility] Chloride 101 96 - 108 mmol/L [facility] Carbon Dioxide 33(H) 22 - 29 mmol/L [facility] Anion Gap 15 12 - 20 [facility] Urea Nitrogen (BUN) 13 9 - 16 mg/dL [facility] Creatinine, Serum 0.83 0.5 - 1.4 mg/dL [facility] Creatinine Clr Calc Pharmacy 75.1 [facility] Comment:Provided height and weight: 154.94 cm,93.44 kg.eGFR (calculated from the MDRD study equation) and eCrCl(calculated from the Cockcroft-Gault equation) are based ondifferent parameters and may not yield comparable results.If eCrCl result is absurd, please check patient'sheight/weight. Estimated Glomerular Filt Rate >60 [facility] Comment:Chronic Kidney Disea se: Estimated GFR < 60 mL/min/1.71x9Ovyrye Kidney Disease: Estimated GFR < 15 mL/min/1.73m2 Glucose 92 60 - 115 mg/dL [facility] Calcium 7.4(L) 8.4 - 10.2 mg/dL [facility] 09/02/2024 7:39 PM EDT 09/02/2024 7:42 PM EDT us Generic External Data Provider LAB BLOOD ORDERAB LES Final Result [facility] [address] [place] [phone] * SARS-CoV-2 RNA, Influenza A/B, and RSV RNA, Ql NAAT (09/02/2024 4:26 PM EDT) Influenza A PCR NEGATIVE Negative [facility] Influenza B PCR NEGATIVE Negative [facility] Resp Syncy Virus RNA Qual PCR NEGATIVE Negative [facility] SARS COV2 PCR NEGATIVE Negative [facility] Comment:All test results mus [...] use by authorized laboratories.Testing performed on the [employer] GeneXpert utilizingreal-time RT-PCR.All SARS CoV2 and positive influenza A/B results arereported to [facility]. 09/02/2024 4:26 PM EDT 09/02/2024 4:30 PM EDT Generic External Data Provider LAB MICROBIOLOGY - GENERAL ORDERABLES Final Result Performing Organization Address [facility] Co de Phone Number [facility] [address] [place] [phone] * (ABNORMAL) Magnesium (09/02/2024 4:26 PM EDT) Magnesium 0.9(LL) 1.6 - 2.6 mg/dL [facility] Comment:Critical value for t est(s): MAGS Results called to and readback by: NEELAM Person calling: Smeet Date: 09.02.24 Time:1700 09/02/2024 4:26 PM EDT 09/02/2024 4:30 PM EDT Generic External Data Provider LAB BLOOD ORDERAB LES Final Result Performing Organization Address [facility] Co de Phone Number [facility] [address] [place] [phone] * (ABNORMAL) Comprehensive Metabolic Panel (09/02/2024 4:26 PM EDT) Sodium 144 135 - 145 mmol/L [facility] Potassium 3.0(L) 3.3 - 5.1 mmol/L [facility] Chloride 101 96 - 108 mmol/L [facility] Carbon Dioxide 33(H) 22 - 29 mmol/L [facility] Anion Gap 13 12 - 20 [facility] Urea Nitrogen (BUN) 14 9 - 16 mg/dL [facility] Creatinine, Serum 0.85 0.5 - 1.4 mg/dL [facility] Creatinine Clr Calc Pharmacy 73.4 [facility] Comment:Provided height and weight: 154.94 cm,93.44 kg.eGFR (calculated from the MDRD study equation) and eCrCl(calculated from the Cockcroft-Gault equation) are based ondifferent parameters and may not yield comparable results.If eCrCl result is absurd, please check patient'sheight/weight. Estimated Glomerular Filt Rate >60 [facility] Comment:Chronic Kidney Disea se: Estimated GFR < 60 mL/min/1.58x6Gnyycw Kidney Disease: Estimated GFR < 15 mL/min/1.73m2 Glucose 96 60 - 115 mg/dL [facility] Calcium 7.6(L) 8.4 - 10.2 mg/dL [facility] Bilirubin, Total 0.3 0.0 - 1.0 mg/dL [facility] Aspartate Amino Transferase 24 5 - 31 U/L [facility] Alanine Aminotransferase 33(H) 0 - 31 U/L [facility] Total Protein 6.8 6.5 - 8.0 g/dL [facility] Albumin Level 3.7 3.5 - 5.0 g/dL [facility] Alkaline Phosphatase 100 39 - 117 U/L [facility] 09/02/2024 4:26 PM EDT 09/02/2024 4:30 PM EDT us Generic External Data Provider LAB BLOOD ORDERAB LES Final Result [facility] [address] [place], [place] [phone] * High Sensitivity Troponin I (09/02/2024 4:26 PM EDT) TROPONIN I HIGH SENSITIVITY 3.3 <3.5 - 17.0 ng/L [facility] Comment:The [place]ff[place] high sens itivity Troponin-I results should beused in conjunction with other diagnostic information suchas ECG, clinical observations and information, and patientsymptoms to aid in the diagnosis of OR. 09/02/2024 4:26 PM EDT 09/02/2024 4:30 PM EDT Generic External Data Provider LAB BLOOD ORDERAB LES Final Result Performing Organization Address [facility] Co de Phone Number [facility] [address] [place] [phone] * (ABNORMAL) Partial Thromboplastin Time, Activated (APTT) (09/02/2024 4:26 PM EDT) Partial Thromboplastin Time 25.0(L) 26.0 - 36.8 SEC [facility] Comment:For information rega rding the monitoring of direct thrombininhibitors, please refer to Pharmacy. 09/02/2024 4:26 PM EDT 09/02/2024 4:30 PM EDT Generic External Data Provider LAB BLOOD ORDERAB LES Final Result Performing Organization Address [facility] de Phone Number [facility] [address] [place] [phone] * (ABNORMAL) Prothrombin Time-INR (09/02/2024 4:26 PM EDT) Prothrombin Time 10.8(L) 10.9 - 12.4 SEC [facility] INTERNATIONAL NORM RATIO 0.9 0.9 - 1.1 [facility] Comment:INTERNATIONAL NORMAL IZED RATIO (INR) [...] Provider LAB BLOOD ORDERAB LES Final Result [facility] [address] [place] [phone] * (ABNORMAL) CBC auto differential (09/02/2024 4:26 PM EDT) White Blood Count 10.6 4.8 - 10.8 X10*3/uL [facility] Red Blood Count 4.30 4.20 - 5.50 X10*6/uL [facility] Hemoglobin 12.0 12.0 - 16.0 g/dl [facility] Hematocrit 35.7(L) 37.0 - 47.0 % [facility] Mean Corpuscular Volume 83.0 80.0 - 98.0 fL [facility] Mean Corpuscular Hemoglobin 27.9 27.0 - 33.0 pg [facility] Mean Corpuscular HGB Conc 33.6 31.0 - 35.0 g/dl [facility] Red Cell Distribution Width 14.7 11.0 - 16.0 % [facility] Platelet Count 309 160 - 400 X10*3/uL [facility] Mean Platelet Volume 10.1 9.4 - 12.3 fL [facility] Neutrophils Percent Auto 58.3 45 - 73 % [facility] Imm Gran Pct Auto 0.4 0.0 - 0.4 % [facility] Lymphocytes Percent Auto 31.2 20 - 40 % [facility] Monocytes Percent Auto 8.6 2 - 11 % [facility] Eosinophils Percent Auto 1.2 0 - 4 % [facility] Basophils Percent Auto 0.3 0 - 2 % [facility] NRBC Pct Auto 0.0 0.0 - 0.2 /100WBC [facility] Neutrophils Absolute Auto 6.2 2.0 - 8.3 x10*3/uL [facility] Imm Gran Abs Auto 0.04(H) 0.00 - 0.03 X10*3/uL [facility] Lymphocytes Absolute Auto 3.3 1.2 - 4.9 X10*3/uL [facility] Monocytes Absolute Auto 0.9 0.1 - 1.2 X10*3/uL [facility] Eosinophils Absolute Auto 0.1 0.0 - 0.4 X10*3/uL [facility] Basophils Absolute Auto 0.0 0.0 - 0.2 X10*3/uL [facility] NRBC Abs Auto 0.000 0.0 - 0.012 X10*3/uL [facility] 09/02/2024 4:26 PM EDT 09/02/2024 4:30 PM EDT us Generic External Data Provider LAB BLOOD ORDERAB LES Final Result Performing Organization Address City/State/[facility] Co de Phone Number [facility] [address] [place] [address] [phone] documented in this encounter Visit Diagnoses Not on filedocumented in this encounter Additional Health Concerns Assessment Noted Time PHQ-9 Depression Total Score: 16 024 9:59 AM EST documented as of this encounter Care Teams Credit Risk Officer Relationship Specialty Start Date End Date Leelee Yanes MD [address] [place] [phone] PCP - General Family Medicine 06/11/20 documented as of this encounter
--- OUTSIDE RECORDS SUMMARY | 2024-09-04 12:41 | XMS_ITS | Encounter Summary ---
Author Organization [employer] Address [address] [place] [address] 7t [place] [address] Care Team Providers Care Vc++ Developer Name Role Phone Leelee Yanes MD Primary Care Provider + Reason for Visit * Reason Comments Med Refill Encounter Details Date Type Department Care Team ([facility] st Contact Info) Description 09/02/2024 Refill [facility] [address] [place] [address] Leelee Yanes MD [address] [place], [place] [phone] Social History Tobacco Use Types Packs/Day Years [...] Info) Description 09/06/2024 12:15 PM EDT Telemedicine [facility] [address] [place] [address] Leelee Yanes MD [address] [place] [address] 10/03/2024 11:30 AM EDT Clinical Support [facility] [address] [place] [address] Yoana Perry RN 12/06/2024 3:00 PM EDT Office Visit [facility] [address] [place] [address] Karly Bradford, OD [address] [place] [address] documented as of this encounter Visit Diagnoses Not on filedocumented in this encounter Additional Health Concerns Assessment Noted Time PHQ-9 Depression Total Score: 16 024 9:59 AM EST documented as of this encounter Care Teams Vc++ Developer Relationship Specialty Start Date End Date Leelee Yanes MD [address] [place] [address] PCP - General Family Medicine 06/11/20 documented as of this encounter
--- OUTSIDE RECORDS SUMMARY | 2024-09-04 12:41 | XMS_ITS | Encounter Summary ---
Author Organization [employer] Address [address] [place] [address] 7t [place] [address] Care Team Providers Care Caption Writer Name Role Phone Leelee Yanes MD Primary Care Provider + Reason for Visit * Reason Onset Date Comments Error (VOID this visit) 09/04/2024 Encounter Details Date Type Department Care Team ([facility] st Contact Info) Description 09/04/2024 Telephone [facility] 230 [place] [address] Leelee Yanes MD [address] [place] [address] Error (VOID this visit) Social History Tobacco Use Types Packs/Day Years [...] Info) Description 09/06/2024 12:15 PM EDT Telemedicine [facility] 230 [place] [address] Leelee Yanes MD [address] [place] [address] 10/03/2024 11:30 AM EDT Clinical Support [facility] [address] [place] [address] Yoana Perry RN 12/06/2024 3:00 PM EDT Office Visit [facility] OPT[facility] [address] [place] [address] Karly Bradford, OD 230 [place] [address] documented as of this encounter Visit Diagnoses Not on filedocumented in this encounter Additional Health Concerns Assessment Noted Time PHQ-9 Depression Total Score: 16 024 9:59 AM EST documented as of this encounter Care Teams Caption Writer Relationship Specialty Start Date End Date Leelee Yanes MD [address] [place] [phone] PCP - General Family Medicine 06/11/20 documented as of this encounter
--- OUTSIDE RECORDS SUMMARY | 2024-09-04 12:41 | XMS_ITS | Patient Health Record ---
Author Organization [facility] Address [address] [place] [address] Care Team Providers Care Baseball Inspector And Repairer Name Role Phone Yoel Yanes MD Primary Care Provider Unavail able Shay Araya Unavailable [phone] Allergies Allergen (clinical drug ingredient) Drug/Non Drug Allergy documented on EMR Reaction Allergy Type Onset Date Status Rocephin Unknown Drug Allergy Active Keflex Unknown Drug Allergy Active sulfamethoxazole / trimethoprim Bactrim Unknown Drug Allergy Active Reason For Referral Referring Provider First Name Ivana Referring Provider Last Name Eduardo Referred Organization [facility] Referred Provider Shay Araya Referred Address [address],[place], [place],[address], Referred Provider Specialty Gastroentero logy General Notes Carri Vidal 2024 01:54:30 PM requested a [facility] for visit with Dr. Aryaa on 08-07-2024 Referral Priority Routine Medications Medication [...] morning Orally Once a day Active Ipratropium [place] 0.03 % INHALE 1-2 SPRAYS NASALLY NEEDED [...] Status W/U Status Risk Notes Problem Diarrhea (00929728) Diarrhea (787.91) Active confirmed Problem Colon cancer screening (990617770) Colon cancer screening (V76.51) Active confirmed Problem Gastroesophageal reflux disease (800966868) GERD (gastroesopha geal reflux disease) (530.81) Active confirmed Problem Colon cancer screening (782694838) Colon cancer screening (Z12.11) Active confirmed Problem Dysphagia (37516584) Dysphagia (R13.10) Active confirmed Problem Gastroesophageal reflux disease (807255483) GERD (gastroesopha geal reflux disease) (K21.9) Active [...] N/A Encounters Encounter Location Date Provider Diagnosis [facility] [address] [place] [phone] 08/07/2024 Shay Araya Colon cancer screening Z12.11 ; Dysphagia R13.10 and GERD (gastroesophageal reflux disease) K21.9 [facility] [address] [place] [phone] 08/07/2024 Shay Araya Assessments Encounter Date Diagnosis [...] Of note, there will be a medical practice administrator present on the day of the procedure [...] Of note, there will be a medical practice administrator present on the day of the procedure [...] Of note, there will be a medical practice administrator present on the day of the procedure [...] Name:Shay Arndt Quiana , 11/15/2024 11:00:00 AM, [address] [place] [address] , [place], [place], [phone], Insurance Providers Payer Name Payer Address Payer Phone Subscriber Number Group Number Insured Name Patient Relationship to Insured Coverage Start Date Coverage End Date MEDICAID OF [facility] [address] [place] [phone] [id number] HARRISANN-MARIE RIOS Self - patient is the insured Medical (General) History Medical History History ICD Code Neg. colonoscopy in 2001 GERD-EGD in 2001 with no esophagitis, HH , nor Leonardo's Allergic rhinitis Back pain Asthma Hypertension Hyperlipidemia Obesity Sleep apnea-uses CPAP Denies ID,CVA,renal disease Depression/Anxiety Arthritis NIDDM Negative screening colonoscopy in 06/2014 Kidney stones Surgical History Surgery Date(Month/Year) Gastric sleeve with Dr. 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 Rubi
--- OUTSIDE RECORDS SUMMARY | 2024-09-04 12:41 | XMS_ITS | Encounter Summary ---
Author Organization [employer] Address [address] [place] [address] 7t [place] [address] Care Team Providers Care Felt Hat Flanging Operator Name Role Phone Leelee Yanes MD Primary Care Provider + Reason for Visit * Reason Comments Med Refill Encounter Details Date Type Department Care Team (Late Contact Info) Description 08/31/2022 Refill [facility] MEDICINE [address] [place] [address] Leelee Yanes MD [address] [place] [address] Acute bilateral low back pain, unspecified whether [...] Info) Description 09/06/2024 12:15 PM EDT Telemedicine [facility] MEDICINE [address] [place] [address] Leelee Yanes MD [address] [place] [address] 10/03/2024 11:30 AM EDT Clinical Support [facility] [address] [place] [address] Yoana Perry RN 12/06/2024 3:00 PM EDT Office Visit [facility] OPTOMETRY [address] [place] [address] Sanchez, Karly, OD [address] [place] [address] documented as of this encounter Visit Diagnoses Diagnosis Acute bilateral low back pain, unspecified whether sciatica present documented in this encounter Additional Health Concerns Assessment Noted Time PHQ-9 Depression Total Score: 14 023 9:55 AM EDT documented as of this encounter Care Teams Felt Hat Flanging Operator Relationship Specialty Start Date End Date Leelee Yanes MD [address] [place] [address] PCP - General Family Medicine 06/11/20 documented as of this encounter
--- OUTSIDE RECORDS SUMMARY | 2024-09-04 12:41 | XMS_ITS | Encounter Summary ---
Author Organization [employer] Address [address] [facility] 7t [place] [address] Care Team Providers Care Acid Strength Inspector Name Role Phone Leelee Yanes MD Primary Care Provider + Encounter Details Date Type Department Care Team ([facility] Contact Info) Description 07/19/2022 Orders Only [facility] MED & PEDS [address] [place], [place] [phone] Marbella Munoz LPN Social History Tobacco Use [...] Info) Description 09/06/2024 12:15 PM EDT Telemedicine [address] [phone] Leelee Yanes MD [address] [place] [address] 10/03/2024 11:30 AM EDT Clinical Support [facility] MEDICINE 230 [place] [address] Yoana Perry, ESTEFANÍA 12/06/2024 3:00 PM EDT Office Visit [facility] OPTOMETRY [address] [place], [place] [phone] Karly Bradford, ART [address] [place] [address] documented as of this encounter Visit Diagnoses Not on filedocumented in this encounter Care Teams Acid Strength Inspector Relationship Specialty Start Date End Date Leelee Yanes MD 230 [place] [address] PCP - General Family Medicine 06/11/20 documented as of this encounter
--- OUTSIDE RECORDS SUMMARY | 2024-09-04 12:41 | XMS_ITS | Encounter Summary ---
Author Organization [email or web address] Address [address] [place] [address] 7t [place] [address] Care Team Providers Care Outer Diameter Grinder Tool Name Role Phone Leelee Yanes MD Primary Care Provider + Reason for Visit * Reason Comments Med Refill Encounter Details Date Type Department Care Team (Late Contact Info) Description 08/02/2022 Refill [facility] MEDICINE [address] [place] [address] Leelee Yanes MD [address] [place] [address] [phone] Acute bilateral low back pain, unspecified whether [...] 09/06/2024 12:15 PM EDT Telemedicine [facility] MEDICINE [address] [place] [phone] Leelee Yanes MD [address] [place] [address] 10/03/2024 11:30 AM EDT Clinical Support [facility] MEDICINE [address] [place], [place] [phone] Yoana Perry RN 12/06/2024 3:00 PM EDT Office Visit [facility] OPTOMETRY [address] [place], [place] [phone] Karly Bradford, OD 230 [place] [address] documented as of this encounter Visit Diagnoses Diagnosis Acute bilateral low back pain, unspecified whether sciatica present documented in this encounter Care Teams Outer Diameter Grinder Tool Relationship Specialty Start Date End Date Leelee Yanes MD [address] [place], [place] [phone] PCP - General Family Medicine 06/11/20 documented as of this encounter
--- OUTSIDE RECORDS SUMMARY | 2024-09-04 12:41 | XMS_ITS | Encounter Summary ---
Author Organization [employer] Address [address] [place] [address] 7t [place] [address] Care Team Providers Care Computer Forwarding System Markup Clerk Name Role Phone Leelee Yanes MD Primary Care Provider + Reason for Visit * Reason Comments Med Refill Encounter Details Date Type Department Care Team ([facility] Contact Info) Description 08/04/2022 Refill [facility] MEDICINE [address] [place] [address] [phone] Marbella Carlin DO [address] [place], [place] [phone] Social History Tobacco Use Types Packs/Day Years [...] Upcoming Encounters Date Type Department Care Team ([facility] Contact Info) Description 09/06/2024 12:15 PM EDT Telemedicine [facility] MEDICINE [address] [place] [phone] Leelee Yanes MD [address] [place] [address] 10/03/2024 11:30 AM EDT Clinical Support [facility] MEDICINE [address] [place] [address] Yoana Perry, RN 12/06/2024 3:00 PM EDT Office Visit [facility] OPTOMETRY [address] [place] [address] Karly Bradford, OD 230 [place] [address] documented as of this encounter Visit Diagnoses Not on filedocumented in this encounter Care Teams Computer Forwarding System Markup Clerk Relationship Specialty Start Date End Date Leelee Yanes MD [address] [place] [address] PCP - General Family Medicine 06/11/20 documented as of this encounter
--- OUTSIDE RECORDS SUMMARY | 2024-09-04 12:41 | XMS_ITS | Encounter Summary ---
Author Organization [employer] Address [address] [place] [address] 7t [place] [address] Care Team Providers Care Api Architect Name Role Phone Leelee Yanes MD Primary Care Provider + Reason for Visit * Reason Onset Date Comments Durable Medical Equipment 09/28/2022 Encounter Details Date Type Department Care Team (Late st Contact Info) Description 09/28/2022 Telephone [facility] MEDICINE [address] [place] [address] Leelee Yanes MD 230 [place] [address] Durable Medical Equipment Social History Tobacco Use [...] have PCP send script for walker to [facility] surgical supply on [facility]. Please contact pt at [phone] documented in this encounter Plan of Treatment Upcoming Encounters Date Type Department Care Team (Late st Contact Info) Description 09/06/2024 12:15 PM EDT Telemedicine [facility] MEDICINE [address] [place] [address] Leelee Yanes MD [address] [place] [address] 10/03/2024 11:30 AM EDT Clinical Support [facility] MEDICINE [address] [place] [address] Yoana Perry, ESTEFANÍA 12/06/2024 3:00 PM EDT Office Visit [facility] OPTOMETRY [address] [place] [address] Sanchez, Karly, OD [address] [place] [address] documented as of this encounter Visit Diagnoses Not on filedocumented in this encounter Additional Health Concerns Assessment Noted Time PHQ-9 Depression Total Score: 14 023 9:55 AM EDT documented as of this encounter Care Teams Api Architect Relationship Specialty Start Date End Date Leelee Yanes MD [address] [place] [phone] PCP - General Family Medicine 06/11/20 documented as of this encounter
[2024-09-04 14:05] LABS: Anion Gap 12 (12-20); Blood Urea Nitrogen 10 mg/dL (9-16); Carbon Dioxide 32 mmol/L (22-29); Chloride 104 mmol/L (96-108); Estimated Glomerular Filt Rate > 60; Glucose Random 131 mg/dL (60-115); Magnesium 1.8 mg/dL (1.6-2.6); Potassium 3.7 mmol/L (3.3-5.1); Sodium 144 mmol/L (135-145)
== END 2024-09-04 11:14 | disposition home or self-care (01) ==
LOC: HO.HHCL 11:13
PROVIDERS: Visit Provider Internal Medicine
DX: E83.42 Hypomagnesemia (principal); E87.6 Hypokalemia
CPT/HCPCS: 36415; 80048; 83735

== ENCOUNTER 2024-11-15 09:42 | Day surgery (SDC) | payer MEDICAID, SELFPAY ==
--- OUTSIDE RECORDS SUMMARY | 2024-10-04 08:58 | XMS_ITS | Data Portability ---
Author Organization [place] [facility] Address [address] [place] [phone] Assessment Encounter Date Assessment Date Assessment LastModified [...] Address Organization Details Recorded Time Chronic hoarseness 1169001866641 Active 2023 YIN DE SANTIAGO MD [address] [facility],[address], [address] - [facility] 09:20:04 Feeling of lump in throat 764517737 Active 2023 YIN DE SANTIAGO MD 100 [facility] [address], [place], [address], [facility] - [facility] 4 09:20:10 Obstructive sleep apnea syndrome 33824914 Active 2023 YIN DE SANTIAGO MD [address] [address], [place], [phone], [facility] - [facility] 4 09:20:14 Moderate persistent asthma 775683817 Active 2023 YIN DE SANTIAGO MD [address] [address], [place], [address], [facility] - [facility] 4 09:20:21 Problem Notes None recorded. Procedures Surgical History Date Name Laterality Status Provider Name and Address Organization Details Recorded Time 4 FOL_Reflux_J MS completed YIN REEVES MD [address] [address], [place], [address], [facility] - [facility] 11/28/2023 09:22:24 Gastric bypass for obesity completed Dustin Francis [place] [facility] 11/28/2023 09:27:15 Imaging Results None recorded. Procedure [...] MOUTH FOUR TIMES DAILY BEFORE BREAKFAST, LUNCH, teletype clerk, AND AT BEDTIME active Not Available Not [...] Updated DateTime 11/28/2023 154.94 cm 39.9 kg/m2 80498.99 g Dustin Francis [place] - [facility] 11/28/2023 09:01:32 Social History None recorded. Functional Status None recorded. Mental Status None recorded. Family History Nothing Reported. Medical History No medical history recorded. Gynecological HistoryNo gynecological history recorded. Obstetrics History GPAL:G 0 P 0 0 0 0 Past Encounters Encounter ID Performer Location Encounter Start Date Encounter Closed Date Diagnosis/Indication Diagnosis SNOMED-CT Code Diagnosis ICD10 Code Diagnosis Note [id number] YIN ZAVALETA MD [facility] [address] [place] [address] 11/28/2023 08:57:25 11/28/2023 09:25:04 Chronic hoarseness 6584303267 105 R49.0 Feeling of lump in throat 518985682 R09.89 Obstructiv e sleep apnea syndrome 21726439 G47.33 Moderate p ersistent asthma 297737149 J45.40 Health Concerns Section Related Observation LastModified by Organization Detai ls LastModified Time None Recorded Concern Status LastModified by Organization Details LastModified Time None Recorded Advance Directives Directive None Recorded Payers Insurance Date Sequence Insurance Name Policy Number Policy Angel Covered Member ID Angel Member ID Guarantor Name 11/28/2023 1 [place] [facility] Ann-Marie Flores [id number] Ann-Marie Flores Notes Date Note Type Note [...] years.Waiting for colonoscopy YIN REEVES MD [address] [facility],[address] [address], [place], [address], [place] [facility] 11/28/2023 09:23:20 OBGyn Episode No OBEpisode recorded.
[2024-11-13 15:03] VITALS: BMI 38.3
--- NOTE | 2024-11-14 12:01 | HO.ANESPROP2 ---
Documented by User: Claudia Mancuso NP 11/14/24 12:02 HPI - Anesthesia Eval Consult details Narrative: 59yo F for Upper Endoscopy with Balloon Dilitation, Colonoscopy Anesthesia Pre-Procedure Meds Is the patient on any of the following meds?: GLP1/DPP4 PMFSH Active Problems Active Problems: All Active Problems Mass of left hand (Acute) Stiffness of left hand joint (Acute) S/P carpal tunnel release (Acute ~10/30/23) Abnormal mammogram of left breast (Acute) Status post total knee replacement, left (Acute) Renal stones (Acute) Vitamin D deficiency (Acute) Carpal tunnel syndrome of right wrist (Acute) Carpal tunnel syndrome of left wrist (Acute) Trigger finger, right middle finger (Acute) Trigger finger, right ring finger (Acute) Mallet deformity of right little finger (Acute) Morbid obesity with BMI of 40.0-44.9, adult (Acute) KAYLEE (obstructive sleep apnea) (Acute) Status post sleeve gastrectomy (Acute) Morbid obesity (Acute) Hypersomnolence (Acute) Renal calculi (Acute) GERD (gastroesophageal reflux disease) (Acute) Diabetes (Acute) COPD (chronic obstructive pulmonary disease) (Acute) Allergic rhinitis (Acute) KAYLEE on CPAP (Acute) Obesity (BMI 30-39.9) (Acute) Hypertension (Acute) Hyperlipidemia (Acute) Arthritis (Acute) Asthma (Acute) Past Medical History Medical History Osteoarthritis of left knee Hypersomnolence Renal calculi Diabetes COVID-19 vaccine administered COPD (chronic obstructive pulmonary disease) Allergic rhinitis KAYLEE on CPAP Obesity (BMI 30-39.9) Obesity Axillary hidradenitis suppurativa GERD (gastroesophageal reflux disease) Asthma Arthritis Hypertension Hyperlipidemia Family History Family History Mother No problems noted. Father No problems noted. Son No problems noted. Daughter No problems noted. Son No problems noted. Sister No problems noted. Sister No problems noted. Brother No problems noted. Brother No problems noted. Brother No problems noted. Brother No problems noted. Family history of problems with anesthesia: No Surgical History Surgical History S/P total knee arthroplasty (09/20/22) History of carpal tunnel release Hx of knee surgery Hx of cystoscopy History of esophagogastroduodenoscopy (EGD) H/O colonoscopy Hx of total knee replacement History of salpingoophorectomy H/O lithotripsy H/O hemicolectomy H/O tubal ligation Hx of cholecystectomy S/P laparoscopic sleeve gastrectomy History of Problems with Anesthesia: No Social History Social History Household Members: Children Housing: Condominium Are you a primary resident care spec to a significant other at home: No Do you presently have visiting nurse or other home services: Yes ([facility]) Alcohol intake: never Patient Tobacco Use Status: Never used Tobacco Have you been hit, kicked, punched, or otherwise hurt by someone within the past year? 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 Meds Allergies Allergy/AdvReac Type Severity Reaction Status Date / Time sulfamethoxazole (From Allergy Intermediate RASH Verified 09/02/24 16:05 Bactrim) Home Medications ?Medication ?Instructions ?Recorded ?Confirmed ?Last Taken ?Type atorvastatin 40 mg tablet 40 mg PO BEDTIME 02/27/20 11/13/24 09/19/22 History epinephrine 0.3 mg/0.3 mL 0.3 mg IM Q10M PRN Anaphylaxis 02/27/20 11/13/24 Unknown History injection, auto-injector fluticasone propionate 50 1 spray intranasal DAILY 02/27/20 11/13/24 09/19/22 History mcg/actuation nasal spray,suspension (Flonase Allergy Relief) furosemide 40 mg tablet 40 mg PO DAILY 02/27/20 11/13/24 09/19/22 History loratadine 10 mg capsule 10 mg PO DAILY 02/27/20 11/13/24 09/19/22 History lorazepam 0.5 mg tablet 0.5 mg PO BID PRN Anxiety 02/27/20 11/13/24 Unknown History montelukast 10 mg tablet 10 mg PO BEDTIME 02/27/20 11/13/2409/19/23 History pantoprazole 40 mg tablet,delayed 40 mg PO DAILY 02/27/20 11/13/24 09/20/22 04:30 History release zolpidem 10 mg tablet 10 mg PO BEDTIME PRN Insomnia 02/27/20 11/13/24 11/04/20 History citalopram 40 mg tablet 1 tab PO QAM 11/05/20 11/13/24 09/19/22 History hydroxyzine HCl 25 mg tablet 1 tab PO BEDTIME PRN itch 11/05/20 11/13/24 Unknown History cyanocobalamin (vitamin B-12) 1,000 mcg PO DAILY 08/17/22 11/13/24 09/19/22 History 1,000 mcg tablet (Vitamin B-12) multivitamin with folic acid 400 1 tab PO DAILY 08/17/22 11/13/24 09/19/22 History mcg tablet (Daily-Royal (with folic acid)) tramadol 50 mg tablet 50 mg PO BID PRN severe pain 12/14/22 11/13/24 Unknown History blood sugar diagnostic (FreeStyle #10 ea 03/20/23 03/20/24 Unknown History Lite Strips) lancets 33 gauge (Easy Touch Twist #100 ea 03/20/23 03/20/24 Unknown History Lancets) ipratropium bromide 21 mcg (0.03 1 - 2 spray intranasal DAILY PRN 06/02/23 11/13/24 Unknown History %) nasal spray Nasal Congestion dulaglutide 1.5 mg/0.5 mL 1.5 mg subcut QWEEK 11/13/24 11/13/24 11/02/24 History subcutaneous pen injector (Trulicity) fluticasone 250 mcg-salmeterol 50 1 inh inhalation BID 11/13/24 11/13/24 Unknown History mcg/dose blistr powdr for inhalation (Advair Diskus) Exam Height,Weight and Vital Signs: Height 5 ft 2 in Weight 95.073 kg Pertinent Lab Results Pertinent Lab Results: Laboratory Tests 09/02/24 09/04/24 16:26 11:15 WBC 10.6 Hgb 12.0 Hct 35.7 L Plt Count 309 Sodium 144 Potassium 3.7 Chloride 104 Carbon Dioxide 32 H BUN 10 Creatinine 0.81 Narrative Narrative: EKG 08/2024 Vent. Rate : 79 BPM Atrial Rate : 79 BPM P-R Int : 150 ms QRS Dur : 88 ms QT Int : 374 ms P-R-T Axes : 46 37 23 degrees QTcB Int : 428 ms Normal sinus rhythm Normal ECG When compared with ECG of 19-Jun-2023 07:50, No significant change was found Assessment and Plan Assessment Anesthesia Assessment: Chart Reviewed Final Anesthetic Review Family History of Problems with Anesthesia: No History of Problems with Anesthesia: No Documented by User: Adam Fallon MD 11/15/24 11:00 [facility] Past Medical History Medical History Osteoarthritis of left knee Hypersomnolence Renal calculi Diabetes COVID-19 vaccine administered COPD (chronic obstructive pulmonary disease) Allergic rhinitis KAYLEE on CPAP Obesity (BMI 30-39.9) Obesity Axillary hidradenitis suppurativa GERD (gastroesophageal reflux disease) Asthma Arthritis Hypertension Hyperlipidemia Family History Family History Mother No problems noted. Father No problems noted. Son No problems noted. Daughter No problems noted. Son No problems noted. Sister No problems noted. Sister No problems noted. Brother No problems noted. Brother No problems noted. Brother No problems noted. Brother No problems noted. Surgical History Surgical History S/P total knee arthroplasty (09/20/22) History of carpal tunnel release Hx of knee surgery Hx of cystoscopy History of esophagogastroduodenoscopy (EGD) H/O colonoscopy Hx of total knee replacement History of salpingoophorectomy H/O lithotripsy H/O hemicolectomy H/O tubal ligation Hx of cholecystectomy S/P laparoscopic sleeve gastrectomy Social History Social History Household Members: Children [facility] Are you a primary resident care spec to a significant other at home: No Do you presently have visiting nurse or other home services: Yes (GRI[facility]MAN) Alcohol intake: never Patient Tobacco Use Status: Never used Tobacco Have you been hit, kicked, punched, or otherwise hurt by someone within the past year? 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 Meds Allergies Allergy/AdvReac Type Severity Reaction Status Date / Time sulfamethoxazole (From Allergy Intermediate RASH Verified 09/02/24 16:05 Bactrim) Home Medications ?Medication ?Instructions ?Recorded ?Confirmed ?Last Taken ?Type atorvastatin 40 mg tablet 40 mg PO BEDTIME 02/27/20 11/13/24 09/19/22 History epinephrine 0.3 mg/0.3 mL 0.3 mg IM Q10M PRN Anaphylaxis 02/27/20 11/13/24 Unknown History injection, auto-injector fluticasone propionate 50 1 spray intranasal DAILY 02/27/20 11/13/24 09/19/22 History mcg/actuation nasal spray,suspension (Flonase Allergy Relief) furosemide 40 mg tablet 40 mg PO DAILY 02/27/20 11/13/24 09/19/22 History loratadine 10 mg capsule 10 mg PO DAILY 02/27/20 11/13/24 09/19/22 History lorazepam 0.5 mg tablet 0.5 mg PO BID PRN Anxiety 02/27/20 11/13/24 Unknown History montelukast 10 mg tablet 10 mg PO BEDTIME 02/27/20 11/13/24 09/19/22 History pantoprazole 40 mg tablet,delayed 40 mg PO DAILY 02/27/20 11/13/24 09/20/22 04:30 History release zolpidem 10 mg tablet 10 mg PO BEDTIME PRN Insomnia 02/27/20 11/13/24 11/04/20 History citalopram 40 mg tablet 1 tab PO QAM 11/05/20 11/13/24 09/19/22 History hydroxyzine HCl 25 mg tablet 1 tab PO BEDTIME PRN itch 11/05/20 11/13/24 Unknown History cyanocobalamin (vitamin B-12) 1,000 mcg PO DAILY 08/17/22 11/13/24 09/19/22 History 1,000 mcg tablet (Vitamin B-12) multivitamin with folic acid 400 1 tab PO DAILY 08/17/22 11/13/24 09/19/22 History mcg tablet (Daily-Royal (with folic acid)) tramadol 50 mg tablet 50 mg PO BID PRN severe pain 12/14/22 11/13/24 Unknown History blood sugar diagnostic (FreeStyle #10 ea 03/20/23 03/20/24 Unknown History Lite Strips) lancets 33 gauge (Easy Touch Twist #100 ea 03/20/23 03/20/24 Unknown History Lancets) ipratropium bromide 21 mcg (0.03 1 - 2 spray intranasal DAILY PRN 06/02/23 11/13/24 Unknown History %) nasal spray Nasal Congestion dulaglutide 1.5 mg/0.5 mL 1.5 mg subcut QWEEK 11/13/24 11/13/24 11/02/24 History subcutaneous pen injector (Trulicity) fluticasone 250 mcg-salmeterol 50 1 inh inhalation BID 11/13/24 11/13/24 Unknown History mcg/dose blistr powdr for inhalation (Advair Diskus) Exam Airway Mallampati Class: II TM Dist: <=3cm (No mandib ramus to elevate the mandible.) Neck ROM: Full Denture: Upper Heart: ok Lungs: ok Assessment and Plan Assessment Anesthesia Assessment: Anesthesia Plan Discussed Final Anesthetic Review NPO: Yes ASA Class: III Final Preanesthetic Review: No Changes in Pt Med Stat, Meds/Allgs Chart Reviewed, Consent Obtained/Reviewed and Anes Risks/Benef Reviewed Patient Risk: High Procedure Risk: Intermediate Anesthetic Plan Anesthetic Plan: Agree w/ Assess. and Plan and TIVA (Anticipate conversion to GETA. Likelihood of mandibular pain disc w patient.) Disposition: Standard PACU
[2024-11-15 09:46] VITALS: BP 150/88; PULSE 71; RESP 18; TEMP 36.9; O2SAT 96; BMI 37.8
[2024-11-15 09:57] LABS: Glucose, Whole Blood 94 mg/dL (60-115)
[2024-11-15] MEDS: Lactated Ringers 1,000 ML 100 ML IVCONT (10:09)
[2024-11-15 12:02] VITALS: BP 113/67; PULSE 77; RESP 19; TEMP 36.2; O2SAT 97
--- NOTE | 2024-11-15 12:05 | PM.OP ---
Brief Operative Note Date of Service: 11/15/24 Pre-op diagnosis: GERD, Screening Post-op diagnosis: other (Hiatal hernia, Diverticulosis) Procedure: EGD with biopsies, Colonoscopy to the anastomosis and small intestine Surgeon: Shay Araya MD Anesthesia: MAC Was an Car Electronics Installer used for this Procedure?: No Estimated blood loss (mL): 2.0 Pathology: other (A. EG Junction at 35cm) Condition: stable Disposition: PACU
[2024-11-15 12:20] VITALS: BP 106/76; PULSE 63; RESP 18; TEMP 36.4; O2SAT 97
--- NOTE | 2024-11-15 14:42 | OP_ITS ---
DATE OF SERVICE: 11/15/2024 SURGEON: Shay Araya MD INDICATIONS: The patient presents for evaluation of gastroesophageal reflux, occasional dysphagia, and colorectal cancer screening. Full consent has been obtained from her for both procedures, including risks of bleeding and perforation. PREOPERATIVE DIAGNOSIS: POSTOPERATIVE DIAGNOSIS: PROCEDURE PERFORMED: Esophagogastroduodenoscopy with biopsies, and colonoscopy to the anastomosis and small bowel. ESTIMATED BLOOD LOSS: COMPLICATIONS: ANESTHESIA: Medication used, monitored anesthesia care. ASSISTANTS: SPECIMENS: PREOPERATIVE DIAGNOSES: Gastroesophageal reflux, dysphagia, and colorectal cancer screening. POSTOPERATIVE DIAGNOSES: Gastroesophageal reflux, dysphagia, and colorectal cancer screening, small hiatal hernia, diverticulosis, internal hemorrhoids. DESCRIPTION OF PROCEDURE: The patient was placed in the left lateral decubitus position. The Olympus video gastroscope was passed in the posterior oropharynx and upper esophagus under direct vision. The scope was passed slowly into the distal esophagus. The gastroesophageal junction appeared at 35 cm. This area appeared slightly irregular, but without any evidence of esophagitis, definitive Leonardo esophagus, stricture, nor ring. The distal esophagus was somewhat tortuous. However, the gastroesophageal junction did open normally and allowed easy passage of the scope into the stomach. There was a small hiatal hernia noted. The proximal stomach was somewhat narrowed but with insufflation of air it did open normally. The anatomy was consistent with her previous gastric sleeve bariatric surgery. The scope was advanced to the pylorus, and the duodenum was cannulated to the descending portion. The duodenum including the bulb appeared normal without mass or ulceration. The scope was withdrawn back to the stomach. The gastric antrum and body appeared normal with good peristalsis. The scope was retroflexed visualizing the proximal stomach carefully, which appeared normal without any sign of mass or ulceration. The scope was straightened and withdrawn back to the esophagus. Dilation was not performed as I did not appreciate any sign of stricture nor narrowing of the gastroesophageal junction. I did obtain biopsies at the EG junction. The esophageal mucosa otherwise appeared normal as the scope was withdrawn. The scope was withdrawn from the patient. She was turned around for the colonoscopy. The digital rectal exam revealed no abnormalities. The Olympus video pediatric colonoscope was entered into the rectum and advanced easily to the level of the anastomosis. The anastomosis was well visualized and appeared normal. The small bowel appeared normal. The scope was slowly withdrawn assessing all mucosal surfaces carefully. Preparation was excellent, although did require a lot of suctioning due to residual liquid. I did not visualize any sign of polyps, colitis, or angiodysplasia. There was a moderate amount of sigmoid diverticulosis. In the rectum, scope was retroflexed visualizing some internal hemorrhoids, but no other pathology. The rectal mucosa appeared normal. The scope was straightened and withdrawn from the patient. She tolerated both procedures well and was returned to the recovery area in stable condition. IMPRESSION: 1. Small hiatal hernia, gastroesophageal reflux. 2. Diverticulosis. 3. Internal hemorrhoids. PLAN: The results of the biopsies will be checked. I would recommend a repeat colonoscopy in 10 years for further screening. She was advised to use her PPI once or twice a day for symptomatic relief of reflux. She will see me in the interim on a p.r.n. basis. MD ALYSON Denney/GERTRUDE / [phone] MTDD
== END 2024-11-15 12:41 | disposition home or self-care (01) ==
PROVIDERS: PCP Internal Medicine; Visit Provider Internal Medicine
PROC: (CPT 45378; principal; 2024-11-15 11:00)
PROC: 0DJD8ZZ Inspection of Lower Intestinal Tract, Via Natural or Artificial Opening Endoscopic (ICD-10-PCS; CPT 45378; 2024-11-15 11:00)
DX: Z12.11 Encounter for screening for malignant neoplasm of colon (principal); K57.30 Diverticulosis of large intestine without perforation or abscess without bleeding; K64.8 Other hemorrhoids; Z98.0 Intestinal bypass and anastomosis status; K21.9 Gastro-esophageal reflux disease without esophagitis; R13.10 Dysphagia, unspecified; K44.9 Diaphragmatic hernia without obstruction or gangrene; G47.33 Obstructive sleep apnea (adult) (pediatric); I10 Essential (primary) hypertension; E78.5 Hyperlipidemia, unspecified; E11.9 Type 2 diabetes mellitus without complications; J45.909 Unspecified asthma, uncomplicated; F41.9 Anxiety disorder, unspecified; Z87.442 Personal history of urinary calculi; Z79.51 Long term (current) use of inhaled steroids; Z79.85 Long-term (current) use of injectable non-insulin antidiabetic drugs; Z79.899 Other long term (current) drug therapy; Z99.89 Dependence on other enabling machines and devices; Z98.84 Bariatric surgery status
CPT/HCPCS: 45378; 43239; 82947; 88305; 88313; J2003; J2704

== ENCOUNTER 2024-12-10 11:44 | Outpatient (AMB) | payer MEDICAID, SELFPAY ==
--- NOTE | 2024-12-10 11:53 | MHC.OFFVIS ---
Vital Signs 12/10/24 11:54 Height 5 ft 2 in Weight 211 lb 10.3 oz BMI 38.7 BP 122/70 Blood Pressure Location Lt brachial Position Sitting Pulse 92 Pulse Source Pulse Oximeter Pulse Oximetry (%) 98 Oxygen Delivery Method Room Air Intake Visit Reasons: Obstructive sleep apnea Intake Note: pt is here for follow up of KAYLEE, and she states the cpap is well, she was on vacation and missed just a few days for usage. Ring Stamper Required: No Allergies sulfamethoxazole (From Bactrim) Allergy (Intermediate, Verified 12/10/24 11:57) R[facility] Medical History Osteoarthritis of left knee Hypersomnolence Renal calculi Diabetes COVID-19 vaccine administered COPD (chronic obstructive pulmonary disease) Allergic rhinitis KAYLEE on CPAP Obesity (BMI 30-39.9) Obesity Axillary hidradenitis suppurativa GERD (gastroesophageal reflux disease) Asthma Arthritis Hypertension Hyperlipidemia Surgical History S/P total knee arthroplasty (09/20/22) History of carpal tunnel release Hx of knee surgery Hx of cystoscopy History of esophagogastroduodenoscopy (EGD) H/O colonoscopy Hx of total knee replacement History of salpingoophorectomy H/O lithotripsy H/O hemicolectomy H/O tubal ligation Hx of cholecystectomy S/P laparoscopic sleeve gastrectomy Family History Mother No problems noted. Father No problems noted. Son No problems noted. Daughter No problems noted. Son No problems noted. Sister No problems noted. Sister No problems noted. Brother No problems noted. Brother No problems noted. Brother No problems noted. Brother No problems noted. 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
[2024-12-10 11:54] VITALS: BP 122/70; PULSE 92; O2SAT 98; BMI 38.7
--- NOTE | 2024-12-10 12:16 | MHC.OFFVIS ---
Vital Signs 12/10/24 11:54 Height 5 ft 2 in Weight 211 lb 10.3 oz BMI 38.7 BP 122/70 Blood Pressure Location Lt brachial Position Sitting Pulse 92 Pulse Source Pulse Oximeter Pulse Oximetry (%) 98 Oxygen Delivery Method Room Air Intake Visit Reasons: Obstructive sleep apnea Allergies sulfamethoxazole (From Bactrim) Allergy (Intermediate, Verified 12/10/24 12:11) RASH Medication List - Last Reconciled 12/10/24 by Shaylee Carrillo MD albuterol sulfate 2.5 mg (3 mL) inhalation Q4H PRN albuterol sulfate 90 mcg/actuation (Ventolin HFA) 1 puff PO Q4-6H PRN atorvastatin 40 mg PO BEDTIME blood sugar diagnostic (FreeStyle Lite Strips) As directed cholecalciferol (vitamin D3) 25 mcg PO DAILY citalopram 1 tab PO QAM cyanocobalamin (vitamin B-12) (Vitamin B-12) 1,000 mcg PO DAILY cyclobenzaprine 10 mg PO TID PRN docusate sodium 100 mg PO BID 14 days dulaglutide (Trulicity) 1.5 mg subcut QWEEK epinephrine 0.3 mg IM Q10M PRN fluticasone propion-salmeterol 250-50 mcg/dose (Advair Diskus) 1 inh inhalation BID fluticasone propionate 50 mcg/actuation (Flonase Allergy Relief) 1 spray intranasal DAILY furosemide 40 mg PO DAILY hydroxyzine HCl 1 tab PO BEDTIME PRN ipratropium bromide 1 - 2 sprays intranasal DAILY PRN lancets (Easy Touch Twist Lancets) As directed loratadine 10 mg PO DAILY lorazepam 0.5 mg PO BID PRN magnesium oxide 400 mg PO DAILY montelukast 10 mg PO BEDTIME multivitamin with folic acid 400 mcg (Daily-Royal (with folic acid)) 1 tab PO DAILY pantoprazole 40 mg PO DAILY thiamine HCl (vitamin B1) 100 mg PO DAILY tramadol 50 mg PO BID PRN walker Folding Front wheeled walker zolpidem 10 mg PO BEDTIME PRN Do you need a note to return to daycare/school/sports/work: No HPI HPI Obstructive sleep apnea: Details: ERWIN IS 59 YEARS OLD VERY PLEASANT FEMALE WHO IS HERE FOR 6 MONTHS FOLLOW-UP. SHE HE IS A CASE OF OBSTRUCTIVE SLEEP APNEA AND USES HER CPAP VERY REGULARLY. IN FACT IF SHE DOES NOT USE THE CPAP SHE HAS HARD TIME TO SLEEP. LAST MONTH SHE MISSED 5 NIGHTS WHEN SHE WAS [place]. BREATHING HAS BEEN STABLE, WHILE USING ADVAIR DISKUS 250-51 INHALATION B.I.D. AND ALBUTEROL JUST P.R.N.. SHE DOES HAVE CHRONIC ALLERGIC RHINITIS WHICH IS CONTROLLED WITH USE OF MONTELUKAST AND FLONASE SPRAY PRN. WEIGHT REMAINS UNCHANGED. [facility] Medical History Osteoarthritis of left knee Hypersomnolence Renal calculi Diabetes COVID-19 vaccine administered COPD (chronic obstructive pulmonary disease) Allergic rhinitis KAYLEE on CPAP Obesity (BMI 30-39.9) Obesity Axillary hidradenitis suppurativa GERD (gastroesophageal reflux disease) Asthma Arthritis Hypertension Hyperlipidemia Surgical History S/P total knee arthroplasty (09/20/22) History of carpal tunnel release Hx of knee surgery Hx of cystoscopy History of esophagogastroduodenoscopy (EGD) H/O colonoscopy Hx of total knee replacement History of salpingoophorectomy H/O lithotripsy H/O hemicolectomy H/O tubal ligation Hx of cholecystectomy S/P laparoscopic sleeve gastrectomy Family History Mother No problems noted. Father No problems noted. Son No problems noted. Daughter No problems noted. Son No problems noted. Sister No problems noted. Sister No problems noted. Brother No problems noted. Brother No problems noted. Brother No problems noted. Brother No problems noted. 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 Female Reproductive History Menstrual Age of Menarche: 7 Review of Systems Const All systems reviewed & are unremarkable except as noted in HPI and below Eyes Reports no additional complaints ENT Reports change in voice (MILD TO MODERATE DEGREE OF HOARSENESS, HAS ENT CONSULT) Card Denies chest pain, Denies irregular heart rhythm and Denies leg edema Resp Reports as per HPI GI Reports heartburn (Controlled with med) Reports no additional complaints Musc Reports back pain and Reports myalgias Skin/Breast Reports system reviewed and no additional complaints, except as documented Neuro Reports no additional complaints Psych Reports anxiety and Reports depression Valentin/Lymph Reports no additional complaints Physical Exam Vital Signs: Last Vital Signs Pulse 92 12/10/24 11:54 BP 122/70 12/10/24 11:54 Pulse Ox 98 12/10/24 11:54 Oxygen Delivery Method Room Air 12/10/24 11:54 BMI result Body Mass Index 38.7 Const General: comfortable, no acute distress, alert and awake Orientation/consciousness: patient oriented x3 HEENT Head: Yes normal to inspection General nose exam: No nasal polyps present and No nasal discharge present Face and sinus: Yes sinuses nontender Mouth: oropharynx normal Throat: Yes posterior oropharynx normal Eyes General: appearance normal, both eyes and all related structures Neck Neck: Yes normal visual inspection, Yes no lymphadenopathy, Yes trachea midline, Yes no JVD and Yes other (Neck is short and obese, circumference 16 in.) Thyroid: Thyroid normal Chest Chest palpation & inspection: normal inspection of the chest, normal palpation of entire chest wall and no tenderness Resp Other: Breath sounds are slightly distant. Both lungs are clear with prolonged expiratory phase. No wheezes or rhonchi are heard. Cardio Palpation: normal PMI Rate: regular rate Rhythm: regular rhythm Heart sounds: no gallops and no murmurs GI Palpation (GI): Soft to palpation, nontender, No hepatosplenomegaly present, no masses and Other GI palpation findings present (Abdomen is obese and slightly protuberant) Auscultation: normal bowel sounds Back/Spine/Pelvis Thoracic/Lumbar Spine: thoracic and lumbar spine normal to inspection and thoraco-lumbar ROM limited Skin General skin exam: no rashes or lesions noted Neuro General: patient oriented x3 and no focal motor deficits Cranial nerves: Yes CN's II-XII intact bilaterally Extrem General: Yes normal to inspection, Yes no clubbing, cyanosis or edema and Yes no calf tenderness Psych Appearance: grossly normal Speech and movement: Normal speech and movement present Results Reviewed Results Reviewed: COMPLIANCE REPORT FOR THE LAST 30 NIGHTS SHOWS THAT SHE HAS USED 25/30 NIGHTS. NOTED ABOVE SHE WAS ON [place] AND DID NOT USE FOR 5 NIGHTS. PRESSURE USED IS MOSTLY 6-7 CM RESIDUAL AHI ONLY 0.1 Assessment & Plan Assessment & Plan (1) Obesity (BMI 30-39.9): Comment: SHE REMAINS GROSSLY OBESE , HAS NOT BEEN ABLE TO LOSE MUCH WEIGHT. Code(s): E66.9 - Obesity, unspecified Category: Medical Plan: DISCUSSED ABOUT WALKING DAILY AND ALSO TO MANAGE HER DIET. (2) KAYLEE on CPAP: Comment: KAYLEE IS WELL TREATED SHE HAS BEEN VERY COMPLIANT AND BENEFITING. Code(s): G47.33 - Obstructive sleep apnea (adult) (pediatric); Z99.89 - Dependence on other enabling machines and devices Category: Medical Plan: ADVISED TO CONTINUE USING THE CPAP EVERY NIGHT AND TAKE THE CPAP DEVICE WITH HER IF SHE GOES FOR ANY LONG-TERM TRIPS. (3) COPD (chronic obstructive pulmonary disease): Comment: SHE HAS COMBINATION OF MILD ASTHMA, COPD AND RESTRICTIVE LUNG DISORDER STABLE AND WELL CONTROLLED AT THIS TIME. Code(s): J44.9 - Chronic obstructive pulmonary disease, unspecified Category: Medical Plan: CONTINUE ADVAIR 250-51 INHALATION B.I.D. AND ALBUTEROL HFA 2 PUFFS Q 4-6 HOURS P.R.N. (4) Allergic rhinitis: Comment: SHE HAS HISTORY OF CHRONIC ALLERGIC RHINITIS. SHE IS SEEING ALLERGY SPECIALISTS AND IS CURRENTLY ON IMMUNOTHERAPY. CLAIMS THAT HER SYMPT.OMS ARE MUCH LESS Code(s): J30.9 - Allergic rhinitis, unspecified Category: Medical Plan: CONTINUE MONTELUKAST 10 MG DAILY FLONASE 1 OR 2 SPRAY IN EACH NOSTRIL DAILY MAY ALSO USE IPRATROPIUM BROMIDE 1 OR 2 SPRAY IN EACH NOSTRIL BEFORE PUTTING ON THE CPAP Coding Level of Care Code Est Pt Level 4 (44506) Diagnoses Obesity (BMI 30-39.9) E66.9 KAYLEE on CPAP G47.33; Z99.89 COPD (chronic obstructive pulmonary disease) J44.9 Allergic rhinitis J30.9
--- OUTSIDE RECORDS SUMMARY | 2024-12-10 12:45 | XMS_ITS | Clinical Summary ---
Author Organization [facility] Address [address] [place] [address] Phone Care Team Providers Care Engineering Officer Name Role Phone Leelee Yanes MD Primary Care Provider + [phone] Allergies No known active allergies Medications acetaminophen [...] TABLETA TODOS LOS D EN LA VALARIE DIALLO 04/09/20 24 Active cyclobenzaprine (FLEXERIL) 10 mg [...] complication, without long-term current use of insulin ([facility] V24, [facility] V28) 05/07/2024 Dysphonia 05/07/2024 Primary hypertension 05/07/2024 History of total knee arthroplasty 05/07/2024 Major depressive disorder 05/07/2024 Osteoarthritis of left knee 05/07/2024 Acute rhinitis 05/07/2024 CTS (carpal tunnel syndrome) 05/07/2024 Chronic bilateral low back pain with bilateral s ciatica 05/07/2024 Controlled substance agreement broken 05/07/2024 Epigastric pain 05/07/2024 IFG (impaired fasting glucose) 05/07/2024 Encounters Date Type Department Care Team Description 10/24/2024 3:00 PM EDT Office Visit Orthopedic Surgery [facility] [address] [phone] Sudeep De La Vega DPM Controlled type 2 diabetes with neuropathy ([facility] V24, [facility] V28) (Primary Dx); Arthritis of both feet; PAD (peripheral artery disease) ([facility] V24); Dermatophytosis, nail; Plantar fasciitis from Last 3 Months Social History Tobacco [...] - - Weight 97.5 kg (215 lb) 10/24/2024 2:51 PM EDT Height 154.9 cm (5' 0.98 ) 10/24/2024 2:51 PM ED T Body Mass Index 40.65 10/24/2024 2:51 PM EDT Plan of Treatment Upcoming Encounters Date Type Department Care Team (Late st Contact Info) Description 12/31/2024 3:00 PM EDT Office Visit Orthopedic Surgery [facility] [address] [phone] Sudeep De La Vega DPM [address] [phone] Health Maintenance Due Date Last Done Comments Breast Cancer Screening 1965 Diabetes: Annual Foot Exam 09/26/1973 Diabetes: [...] 03/04/2024 Social Influencers of Health Screening 03/04/2024 Depression Screening 05/01/2024 Diabetes: Annual Urine Albumin-Creatinine Ratio (uACR) 05/07/2024 Diabetes: Blood Sugar Control Test (HGBA1C) 08/20/2024 02/20/2024 Influenza Vaccine (#1) 2024 3, 05/10/2021, 01/27/2020, Additional history exists Diabetes: Annual GFR (Glomerular Filtration Rate) 09/04/2025 09/04/2024, 09/02/2024, 09/02/2024 Hypertension/CHF/CAD Annual BMP Blood Test 09/04/2025 09/04/2024, 09/02/2024, 09/02/2024 Hepatitis B Vaccines Aged Out 04/02/2001, 11/02/2000, [...] Procedure Name Priority Date/Time Associated Diagnosis Comments INJECTION TENDON OR LIGAMENT Routine 10/24/2024 3:00 PM EDT Plantar fasciitis from Last 3 Months Results * Injection tendon or ligament (10/24/2024 3:00 PM EDT) Narrative Sudeep De La Vega DPM - 10/24/2024 3:00 PM EDT Sudeep De La Vega DPM 10/24/2024 6:43 PM Injection tendon or ligament Indications: pain Details: 25 G needle Medications: 0.5 mL lidocaine (PF) 1 %; 40 mg triamcinolone acetonide 40 mg/mL Informed Consent: Laterality: Right us Sudeep De La Vega DPM IN CLINIC/BEDSIDE ORDERABLE S Final Result from Last 3 Months Insurance MEDICAID - [place] Care Teams Engineering Officer Relationship Specialty Start Date End Date Leelee Yanes MD [address] [place] [phone] PCP - General 06/02/23
--- OUTSIDE RECORDS SUMMARY | 2024-12-10 12:45 | XMS_ITS | Patient Health Record ---
Author Organization [facility] Address [address] [place] [address] Care Team Providers Care Train Brakeman Name Role Phone Yoel Yanes MD Primary Care Provider Unavail able Shay Araya Unavailable [phone] Allergies Allergen (clinical drug ingredient) Drug/Non Drug Allergy documented on EMR Reaction Allergy Type Onset Date Status Rocephin Unknown Drug Allergy Active Keflex Unknown Drug Allergy Active sulfamethoxazole / trimethoprim Bactrim Unknown Drug Allergy Active Results Component Value Reference Range Notes Glucose, Whole Blood Reviewed date:11/16/2024 01:03:38 AM Interpretation: Performing Lab:[facility], [address] [place] [phone] Notes/Report: Glucose, Whole Blood 94 60-115 mg/dL METER # : [id number] Pathology (Not yet reviewed by provider) Interpretation: Performing Lab:[facility], [address] [place] [phone] Notes/Report: Reason For Referral Referring Provider First Name Ivana Referring Provider Last Name Eduardo Referred Organization [facility] Referred Provider Shay Araya Referred Address [address],[place], [place],[address], Referred Provider Specialty Gastroentero logy General Notes Carri Vidal 2024 01:54:30 PM requested a [facility] from [facility] for visit with Dr. Araya [...] morning Orally Once a day Active Ipratropium Gilbert 0.03 % INHALE 1-2 SPRAYS NASALLY NEEDED [...] Status W/U Status Risk Notes Problem Diarrhea (43121641) Diarrhea (787.91) Active confirmed Problem Colon cancer screening (849644018) Colon cancer screening (V76.51) Active confirmed Problem Gastroesophageal reflux disease (532064608) GERD (gastroesopha geal reflux disease) (530.81) Active confirmed Problem Colon cancer screening (715776403) Colon cancer screening (Z12.11) Active confirmed Problem Dysphagia (82637967) Dysphagia (R13.10) Active confirmed Problem Gastroesophageal reflux disease (706467635) GERD (gastroesopha geal reflux disease) (K21.9) Active [...] N/A Encounters Encounter Location Date Provider Diagnosis [facility] Outpatient [address] [place], [place] [phone] 11/15/2024 Shay Araya [facility] [address] [place] [address] 08/07/2024 Shay Quiana Colon cancer screening Z12.11 ; Dysphagia R13.10 and GERD (gastroesophageal reflux disease) K21.9 [facility] [address] [place] [address] 08/07/2024 Shay Araya Assessments Encounter Date Diagnosis [...] Of note, there will be a medical technologist chief present on the day of the procedure [...] Of note, there will be a medical technologist chief present on the day of the procedure [...] Of note, there will be a medical technologist chief present on the day of the procedure to review things with Ann-Marie again. Ann-Marie was comfortable with this plan. Thank you again for allowing me to participate in Ann-Marie's care. I shall continue to keep you advised of her progress. Plan Of Treatment Pending Test Test Name Order Date UPPER GI ENDOSCOPY BALLOOON DILATION OF ESOPH 08/07/2024 COLONOSCOPY 08/07/2024 Pathology 11/15/2024 Future Test Test Name Order Date COLONOSCOPY 04/04/2014 Insurance Providers Payer Name Payer Address Payer Phone Subscriber Number Group Number Insured Name Patient Relationship to Insured Coverage Start Date Coverage End Date [facility] [address] [place] [phone] [id number] ANN-MARIE HARRIS Self - patient is the insured Medical (General) History Medical History History ICD Code Neg. colonoscopy in 2001 GERD-EGD in 2001 with no esophagitis, HH , nor Leonardo's Allergic rhinitis Back pain Asthma Hypertension Hyperlipidemia Obesity Sleep apnea-uses CPAP Denies [place],CVA,renal disease Depression/Anxiety Arthritis NIDDM Negative screening colonoscopy in 06/2014 Kidney stones Surgical History Surgery Date(Month/Year) Gastric sleeve with Dr. Blanco 2015 Bilateral knee replacement-2022 she had a complication during SHANK SANDER surgery that required a subsequent exploratory laparotomy, lysis of adhesions, drainage of a pelvic abscess, a resection of the distal ileum and cecum, and a right to left ureterostomy Hysterectomy [address] Rubi
--- OUTSIDE RECORDS SUMMARY | 2024-12-10 12:45 | XMS_ITS | Encounter Summary ---
Author Organization [employer] Address [address] [place] [address] 7t [place] [address] Care Team Providers Care Director Sales And Marketing Name Role Phone Leelee Yanes MD Primary Care Provider + Reason for Visit * Reason Comments Med Refill Encounter Details Date Type Department Care Team ([facility] st Contact Info) Description 06/05/2023 Refill [facility] MEDICINE [address] [place] [address] Leelee Yanes MD [address] [place] [address] Lumbar radiculopathy; Primary osteoarthritis of left knee; [...] Care Team (Late st Contact Info) Description 01/17/2025 3:00 PM EDT Office Visit [facility] OPTOMETRY [address] [place] [address] Karly Bradford, OD [address] [place] [address] 01/23/2025 9:45 AM EDT Office Visit [facility] MEDICINE [address] [place] [address] Leelee Yanes MD [address] [place] [phone] 02/03/2025 2:00 PM EDT Clinical Support [facility] MEDICINE [address] [place] [address] Yoana Perry, ESTEFANÍA documented as of this encounter Visit Diagnoses Diagnosis Lumbar radiculopathy Thoracic or lumbosacral neuritis or radiculitis, unspecified Primary osteoarthritis of left knee Acute bilateral low back pain, unspecified whether sciatica present documented in this encounter Additional Health Concerns Assessment Noted Time PHQ-9 Depression Total Score: 16 024 9:59 AM EST documented as of this encounter Care Teams Director Sales And Marketing Relationship Specialty Start Date End Date Leelee Yanes MD [address] [place] [phone] PCP - General Family Medicine 06/11/20 documented as of this encounter
--- NOTE | 2024-12-10 13:28 | A.OFFVIS_ITS ---
Vital Signs 12/10/24 11:54 Height 5 ft 2 in Weight 211 lb 10.3 oz BMI 38.7 BP 122/70 Blood Pressure Location Lt brachial Position Sitting Pulse 92 Pulse Source Pulse Oximeter Pulse Oximetry (%) 98 Oxygen Delivery Method Room Air Intake Visit Reasons: Obstructive sleep apnea Allergies sulfamethoxazole (From Bactrim) Allergy (Intermediate, Verified 12/10/24 12:11) RASH Medication List - Last Reconciled 12/10/24 by Shaylee Carrillo MD albuterol sulfate 2.5 mg (3 mL) inhalation Q4H PRN albuterol sulfate 90 mcg/actuation (Ventolin HFA) 1 puff PO Q4-6H PRN atorvastatin 40 mg PO BEDTIME blood sugar diagnostic (FreeStyle Lite Strips) As directed cholecalciferol (vitamin D3) 25 mcg PO DAILY citalopram 1 tab PO QAM cyanocobalamin (vitamin B-12) (Vitamin B-12) 1,000 mcg PO DAILY cyclobenzaprine 10 mg PO TID PRN docusate sodium 100 mg PO BID 14 days dulaglutide (Trulicity) 1.5 mg subcut QWEEK epinephrine 0.3 mg IM Q10M PRN fluticasone propion-salmeterol 250-50 mcg/dose (Advair Diskus) 1 inh inhalation BID fluticasone propionate 50 mcg/actuation (Flonase Allergy Relief) 1 spray intranasal DAILY furosemide 40 mg PO DAILY hydroxyzine HCl 1 tab PO BEDTIME PRN ipratropium bromide 1 - 2 sprays intranasal DAILY PRN lancets (Easy Touch Twist Lancets) As directed loratadine 10 mg PO DAILY lorazepam 0.5 mg PO BID PRN magnesium oxide 400 mg PO DAILY montelukast 10 mg PO BEDTIME multivitamin with folic acid 400 mcg (Daily-Royal (with folic acid)) 1 tab PO DAILY pantoprazole 40 mg PO DAILY thiamine HCl (vitamin B1) 100 mg PO DAILY tramadol 50 mg PO BID PRN walker Folding Front wheeled walker zolpidem 10 mg PO BEDTIME PRN PFSH Medical History Osteoarthritis of left knee Hypersomnolence Renal calculi Diabetes COVID-19 vaccine administered COPD (chronic obstructive pulmonary disease) Allergic rhinitis KAYLEE on CPAP Obesity (BMI 30-39.9) Obesity Axillary hidradenitis suppurativa GERD (gastroesophageal reflux disease) Asthma Arthritis Hypertension Hyperlipidemia Surgical History S/P total knee arthroplasty (09/20/22) History of carpal tunnel release Hx of knee surgery Hx of cystoscopy History of esophagogastroduodenoscopy (EGD) H/O colonoscopy Hx of total knee replacement History of salpingoophorectomy H/O lithotripsy H/O hemicolectomy H/O tubal ligation Hx of cholecystectomy S/P laparoscopic sleeve gastrectomy Family History Mother No problems noted. Father No problems noted. Son No problems noted. Daughter No problems noted. Son No problems noted. Sister No problems noted. Sister No problems noted. Brother No problems noted. Brother No problems noted. Brother No problems noted. Brother No problems noted. 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 Code(s): E66.9 - Obesity, unspecified Category: Medical (2) KAYLEE on CPAP: Comment: KAYLEE IS WELL TREATED SHE HAS BEEN VERY COMPLIANT AND BENEFITING. Code(s): G47.33 - Obstructive sleep apnea (adult) (pediatric); Z99.89 - Dependence on other enabling machines and devices Category: Medical (3) COPD (chronic obstructive pulmonary disease): Comment: SHE HAS COMBINATION OF MILD ASTHMA, COPD AND RESTRICTIVE LUNG DISORDER STABLE AND WELL CONTROLLED AT THIS TIME. Code(s): J44.9 - Chronic obstructive pulmonary disease, unspecified Category: Medical (4) Allergic rhinitis: Comment: SHE HAS HISTORY OF CHRONIC ALLERGIC RHINITIS. SHE IS SEEING ALLERGY SPECIALISTS AND IS CURRENTLY ON IMMUNOTHERAPY. CLAIMS THAT HER SYMPT.OMS ARE MUCH LESS Code(s): J30.9 - Allergic rhinitis, unspecified Category: Medical Coding Level of Care Code Est Pt Level 3 (78384) Diagnoses Obesity (BMI 30-39.9) E66.9 KAYLEE on CPAP G47.33; Z99.89 COPD (chronic obstructive pulmonary disease) J44.9 Allergic rhinitis J30.9
== END 2024-12-10 12:17 | disposition home or self-care (01) ==
LOC: HO.HPS 11:45
PROVIDERS: PCP Internal Medicine; Visit Provider Internal Medicine
DX: E66.9 Obesity, unspecified (principal); G47.33 Obstructive sleep apnea (adult) (pediatric); Z99.89 Dependence on other enabling machines and devices; J44.9 Chronic obstructive pulmonary disease, unspecified; J30.9 Allergic rhinitis, unspecified
CPT/HCPCS: 99214

== ENCOUNTER → 2024-12-10 11:44 | Outpatient (BNVA) | payer MEDICAID, SELFPAY | PROVIDERS: PCP Internal Medicine; Visit Provider Internal Medicine | DX: G47.33 Obstructive sleep apnea (adult) (pediatric) (principal); E66.9 Obesity, unspecified; Z99.89 Dependence on other enabling machines and devices; J44.9 Chronic obstructive pulmonary disease, unspecified; J30.9 Allergic rhinitis, unspecified | CPT/HCPCS: 99212 ==

== ENCOUNTER 2025-01-20 14:31 | Outpatient (REF) | payer MEDICAID, SELFPAY ==
--- OUTSIDE RECORDS SUMMARY | 2025-01-20 17:03 | XMS_ITS | Encounter Summary ---
Author Organization [employer] Address [address] [place] [address] 7t [place] [address] Care Team Providers Care New Vehicle Sales Consultant Name Role Phone Leelee Yanes MD Primary Care Provider + Reason for Visit * Reason Comments Med Refill
--- OUTSIDE RECORDS SUMMARY | 2025-01-20 17:03 | XMS_ITS | Encounter Summary ---
Demographics Address [address] [place] [address] Work Phone Home Phone Mobile Phone Preferred Language es Marital Status Unknown Zoroastrian Affiliation Unknown Race Other Race Ethnic Group Unknown
--- OUTSIDE RECORDS SUMMARY | 2025-01-20 17:03 | XMS_ITS | Clinical Summary ---
Author Organization [address] [facility] [address] Katie george Address [address] [facility]
--- OUTSIDE RECORDS SUMMARY | 2025-01-20 17:04 | XMS_ITS | Encounter Summary ---
Demographics Address 1 [place] [address] Work Phone Home Phone Mobile Phone Preferred Language es
== END 2025-01-20 14:32 | disposition home or self-care (01) ==
LOC: HO.US 14:31
PROVIDERS: PCP Internal Medicine; Visit Provider Urology
DX: N20.0 Calculus of kidney (principal)
CPT/HCPCS: 76775

== ENCOUNTER → 2025-01-20 14:33 | Outpatient (BNV) | payer MEDICAID, SELFPAY | PROVIDERS: PCP Internal Medicine; Visit Provider Radiology Diagnostic Radiology | DX: N20.0 Calculus of kidney (principal) | CPT/HCPCS: 76775 ==

== ENCOUNTER 2025-01-23 10:37 | Outpatient (REF) | payer MEDICAID, SELFPAY ==
[2025-01-23 13:41] LABS: Anion Gap 13 (12-20); Blood Urea Nitrogen 14 mg/dL (9-16); Calcium 9.6 mg/dL (8.4-10.2); Carbon Dioxide 30 mmol/L (22-29); Chloride 104 mmol/L (96-108); Estimated Glomerular Filt Rate 60; Potassium 3.2 mmol/L (3.3-5.1); Sodium 144 mmol/L (135-145)
[2025-01-23 13:42] LABS: Magnesium 1.3 mg/dL (1.6-2.6)
[2025-01-23 14:06] LABS: Folate 14.1 ng/mL (> or = 4.0); Vitamin B12 207 pg/mL (200-900)
[2025-01-24 13:26] LABS: Bacterial Vaginosis PCR NEGATIVE (Negative); Candida Group PCR NOT DETECTED (Not Detect); Candida glab krusei PCR NOT DETECTED (Not Detect); Trichomonas vaginalis PCR NOT DETECTED (Not Detect)
[2025-01-24 13:55] LABS: CT PCR NOT DETECTED (Not Detect.); NG PCR NOT DETECTED (Not Detect.)
== END 2025-01-23 10:38 | disposition home or self-care (01) ==
LOC: HO.HHCL 10:37
PROVIDERS: PCP Internal Medicine; Visit Provider Internal Medicine
DX: Z11.3 Encounter for screening for infections with a predominantly sexual mode of transmission (principal); Z11.8 Encounter for screening for other infectious and parasitic diseases; Z11.2 Encounter for screening for other bacterial diseases; N76.1 Subacute and chronic vaginitis; E83.42 Hypomagnesemia; E87.6 Hypokalemia; E53.8 Deficiency of other specified B group vitamins
CPT/HCPCS: 36415; 80048; 81515; 82306; 82607; 82746; 83735; 84100; 84443; 87491; 87591

== ENCOUNTER 2025-02-10 10:36 | Outpatient (REF) | payer MEDICAID, SELFPAY ==
--- OUTSIDE RECORDS SUMMARY | 2025-02-10 10:40 | XMS_ITS | Encounter Summary ---
Author Organization [employer] Address [address] [facility] 7t [place] [address] Care Team Providers Care Coiled Tubing Supervisor Name Role Phone Leelee Yanes MD Primary Care Provider + Reason for Visit * Reason Comments Med Refill Encounter Details Date Type Department Care Team (Late st Contact Info) Description 10/10/2024 Refill [facility] CHC MED & PEDS [address] [place] [address] Leelee Yanes MD [address] [place] [address] Lumbar radiculopathy; Primary osteoarthritis of left knee; [...] Care Team (Late st Contact Info) Description 06/02/2025 1:00 PM EST Clinical Support [facility] MEDICINE [address] [place] [address] Yoana Perry RN documented as of this encounter Visit Diagnoses Diagnosis Lumbar radiculopathy Thoracic or lumbosacral neuritis or radiculitis, unspecified Primary osteoarthritis of left knee Acute bilateral low back pain, unspecified whether sciatica present documented in this encounter Additional Health Concerns Assessment Noted Time PHQ-9 Depression Total Score: 16 024 9:59 AM EST documented as of this encounter Care Teams Coiled Tubing Supervisor Relationship Specialty Start Date End Date Leelee Yanes MD [address] [place] [address] PCP - General Family Medicine 06/11/20 documented as of this encounter
--- OUTSIDE RECORDS SUMMARY | 2025-02-10 10:40 | XMS_ITS | Encounter Summary ---
Author Organization [employer] Address [address] [place] [address] 7t [place] [address] Care Team Providers Care Centrifugal Station Operator Name Role Phone Leelee Yanes MD Primary Care Provider + Reason for Visit * Reason Comments Med Refill Encounter Details Date Type Department Care Team (Late st Contact Info) Description 08/02/2022 Refill [facility] MEDICINE [address] [place] [address] [phone] Leelee Yanes MD [address] [place] [address] [phone] Acute bilateral low back pain, unspecified whether [...] Description 06/02/2025 1:00 PM EST Clinical Support [facility] MEDICINE [address] [place] [phone] Vicky, Yoana, RN documented as of this encounter Visit Diagnoses Diagnosis Acute bilateral low back pain, unspecified whether sciatica present documented in this encounter Care Teams Centrifugal Station Operator Relationship Specialty Start Date End Date Leelee Yanes MD [address] [place] [phone] PCP - General Family Medicine 06/11/20 documented as of this encounter
--- OUTSIDE RECORDS SUMMARY | 2025-02-10 10:40 | XMS_ITS | Encounter Summary ---
Author Organization [employer] Address [address] [place] [address] 7t [place] [address] Care Team Providers Care Behavioral Health Aide Name Role Phone Leelee Yanes MD Primary Care Provider + Reason for Visit * Reason Comments Med Refill Encounter Details Date Type Department Care Team (Late st Contact Info) Description 01/22/2025 Refill [facility] MEDICINE [address] [place] [address] Leelee Yanes MD [address] [place] [address] Lumbar radiculopathy; Primary osteoarthritis of left knee; [...] housing situation today? I have katt nuno 01/15/[address] you li ve. Do you have problems with any of the following? None of the above 01/15/2025 Food Insecurity Answer Date Recorded Within the past 12 months, y ou worried that your food would run out before you got money to buy more: Never True 01/15/2025 Within the past 12 months,th e food you bought just didn't last and you didn't have enough money to get more: Never True Transportation Answer Date Recorded In the past 12 months, has l ack of transportation kept you from medical appts, meetings, work or from getting things needed for daily living? No 01/15/2025 Utilities Answer Date Recorded In the past 12 months, has t he electric, gas, oil or water company threatened to shut off services in your home? No 01/15/2025 Depression Answer Date Recorded Patient Health Questionnaire-2 Score 6 05/31/2023 Internet Access Answer Date Recorded Internet Access Q1 Yes 01/15/2025 Internet Access Q2 Not on file 01/15/2025 Comments Unknown Sex and Gender Information Value [...] Description 06/02/2025 1:00 PM EST Clinical Support [facility] MEDICINE [address] [place] [address] Yoana Perry RN documented as of this encounter Visit Diagnoses Diagnosis Lumbar radiculopathy Thoracic or lumbosacral neuritis or radiculitis, unspecified Primary osteoarthritis of left knee Acute bilateral low back pain, unspecified whether sciatica present documented in this encounter Additional Health Concerns Assessment Noted Time PHQ-9 Depression Total Score: 16 024 9:59 AM EST documented as of this encounter Care Teams Behavioral Health Aide Relationship Specialty Start Date End Date Leelee Yanes MD [address] [place] [address] PCP - General Family Medicine 06/11/20 documented as of this encounter
--- OUTSIDE RECORDS SUMMARY | 2025-02-10 10:40 | XMS_ITS | Encounter Summary ---
Author Organization [employer] Address [address] [facility] 7t [place] [address] Care Team Providers Care Repair Servicer Name Role Phone Leelee Yanes MD Primary Care Provider + Reason for Visit * Reason Comments Med Refill Encounter Details Date Type Department Care Team (Late st Contact Info) Description 03/07/2023 Refill [facility] MEDICINE [address] [place] [address] Yulia Perez MD 230 [place] [address] Lumbar radiculopathy; Primary osteoarthritis of left knee; [...] Description 06/02/2025 1:00 PM EST Clinical Support [facility] MEDICINE [address] [place] [phone] Yoana Perry RN documented as of this encounter Visit Diagnoses Diagnosis Lumbar radiculopathy Thoracic or lumbosacral neuritis or radiculitis, unspecified Primary osteoarthritis of left knee Acute bilateral low back pain, unspecified whether sciatica present documented in this encounter Additional Health Concerns Assessment Noted Time PHQ-9 Depression Total Score: 14 023 9:55 AM EDT documented as of this encounter Care Teams Repair Servicer Relationship Specialty Start Date End Date Leelee Yanes MD [address] [place] [address] PCP - General Family Medicine 06/11/20 documented as of this encounter
--- OUTSIDE RECORDS SUMMARY | 2025-02-10 10:40 | XMS_ITS | Encounter Summary ---
Author Organization [employer] Address [address] [place] [address] 7t [place] [address] Care Team Providers Care Hand Sprayer Name Role Phone Leelee Yanes MD Primary Care Provider + Reason for Visit * Reason Comments Med Refill Encounter Details Date Type Department Care Team (Late st Contact Info) Description 06/25/2022 Refill [facility] MEDICINE [address] [place] [phone] Marbella Carlin DO 230 [place], [place] [phone] Acute bilateral low back pain, unspecified whether [...] Description 06/02/2025 1:00 PM EST Clinical Support [facility] MEDICINE [address] [place] [phone] Yoana Perry RN documented as of this encounter Visit Diagnoses Diagnosis Acute bilateral low back pain, unspecified whether sciatica present documented in this encounter Care Teams Hand Sprayer Relationship Specialty Start Date End Date Leelee Yanes MD [address] [place] [phone] PCP - General Family Medicine 06/11/20 documented as of this encounter
--- OUTSIDE RECORDS SUMMARY | 2025-02-10 10:40 | XMS_ITS | Encounter Summary ---
Author Organization [employer] Address [address] [place] [address] 7t [place] [address] Care Team Providers Care Counseling Specialist Name Role Phone Leelee Yanes MD Primary Care Provider + Reason for Visit * Reason Onset Date Comments Durable Medical Equipment 09/28/2022 Encounter Details Date Type Department Care Team (Late st Contact Info) Description 09/28/2022 Telephone [facility] MEDICINE [address] [place] [address] Leelee Yanes MD 230 [place] [address] Durable Medical Equipment Social History Tobacco Use [...] have PCP send script for walker to [facility]. Please contact pt at [phone] documented in this encounter Plan of Treatment Upcoming Encounters Date Type Department Care Team (Late st Contact Info) Description 06/02/2025 1:00 PM EST Clinical Support [facility] MEDICINE [address] [place] [phone] Yoana Perry RN documented as of this encounter Visit Diagnoses Not on filedocumented in this encounter Additional Health Concerns Assessment Noted Time PHQ-9 Depression Total Score: 14 023 9:55 AM EDT documented as of this encounter Care Teams Counseling Specialist Relationship Specialty Start Date End Date Leelee Yanes MD [address] [place] [phone] PCP - General Family Medicine 06/11/20 documented as of this encounter
--- OUTSIDE RECORDS SUMMARY | 2025-02-10 10:40 | XMS_ITS | Encounter Summary ---
Author Organization [employer] Address [address] [place] [address] 7t [place] [address] Care Team Providers Care Knurling Machine Operator Name Role Phone Leelee Yanes MD Primary Care Provider + Reason for Visit * Reason Comments Med Refill Encounter Details Date Type Department Care Team ([facility] Contact Info) Description 08/04/2022 Refill [facility] MEDICINE [address] [place] [phone] Marbella Carlin DO 230 [place], [place] [phone] Social History Tobacco Use Types Packs/Day Years [...] Department Care Team (Late Contact Info) Description 06/02/2025 1:00 PM EST Clinical Support [facility] MEDICINE [address] [place] [address] Yoana Perry RN documented as of this encounter Visit Diagnoses Not on filedocumented in this encounter Care Teams Knurling Machine Operator Relationship Specialty Start Date End Date Leelee Yanes MD [address] [place] [phone] PCP - General Family Medicine 06/11/20 documented as of this encounter
--- OUTSIDE RECORDS SUMMARY | 2025-02-10 10:40 | XMS_ITS | Encounter Summary ---
Author Organization [employer] Address [address] [facility] 7t [place] [address] Care Team Providers Care Wood Carving Machine Operator Name Role Phone Leelee Yanes MD Primary Care Provider + Encounter Details Date Type Department Care Team ([facility] Contact Info) Description 01/23/2023 Orders Only [facility] CHC MED & PEDS [address] [place], [place] [phone] Ghada Isidro LPN Social History Tobacco Use [...] Description 06/02/2025 1:00 PM EST Clinical Support [facility] MEDICINE [address] [place] [address] Yoana Perry RN documented as of this encounter Visit Diagnoses Not on filedocumented in this encounter Additional Health Concerns Assessment Noted Time PHQ-9 Depression Total Score: 14 023 9:55 AM EDT documented as of this encounter Care Teams Wood Carving Machine Operator Relationship Specialty Start Date End Date Leelee Yanes MD [address] [place] [phone] PCP - General Family Medicine 06/11/20 documented as of this encounter
--- OUTSIDE RECORDS SUMMARY | 2025-02-10 10:40 | XMS_ITS | Clinical Summary ---
Author Organization [address] [facility] Address [address] [place] [address] Phone Care Team Providers Care Receiving Weigher Name Role Phone Leelee Yanes MD Primary Care Provider + [phone] Allergies No known active allergies Medications acetaminophen [...] complication, without long-term current use of insulin ([facility] V24, [facility] V28) 05/07/2024 Dysphonia 05/07/2024 Primary hypertension 05/07/2024 History of total knee arthroplasty 05/07/2024 Major depressive disorder 05/07/2024 Osteoarthritis of left knee 05/07/2024 Acute rhinitis 05/07/2024 CTS (carpal tunnel syndrome) 05/07/2024 Chronic bilateral low back pain with bilateral s ciatica 05/07/2024 Controlled substance agreement broken 05/07/2024 Epigastric pain 05/07/2024 IFG (impaired fasting glucose) 05/07/2024 Encounters Date Type Department Care Team Description 01/07/2025 2:30 PM EDT Office Visit Orthopedic Surgery [facility] [address] [phone] Sudeep De La Vega DPM Controlled type 2 diabetes with neuropathy (CMS/[facility] V24, CMS/[facility] V28) (Primary Dx); PAD (peripheral artery disease) (CMS/HCC V24); Equinus contracture of right ankle; Plantar fasciitis 12/31/2024 3:00 PM EDT Office Visit Orthopedic Surgery [place] [address] [phone] Sudeep De La Vega DPM Controlled type 2 diabetes with neuropathy (CMS/HCC V24, CMS/HCC V28) (Primary Dx); PAD (peripheral artery disease) (CMS/HCC V24); Arthritis of both feet; Dermatophytosis, nail; Plantar fasciitis from Last 3 [...] Upcoming Encounters Date Type Department Care Team ([facility] st Contact Info) Description 03/04/2025 2:45 PM EST Office Visit Orthopedic Surgery [place] [address] [place] [phone] Sudeep De La Vega, DPM 175 [facility] [address] [place] [address] Health Maintenance Due Date Last Done Comments Breast Cancer Screening 1965 Colorectal Cancer Screening: Colonoscopy 1965 Diabetes: Annual Retina Eye Exam 09/26/1973 Cervical Cancer Screening: Pap Smear 09/26/1984 Zoster Vaccines (2 of 2) 08/17/2021 06/22/2021 DTaP,Tdap,and Td Vaccines (3 - Td or Tdap) 07/06/2022 07/06/2012, 11/11/2005 RSV Immunization Adult Patients (1 - Risk 60-74 years 1-dose series) 2023 Cholesterol Screening (Lipid Panel) 03/04/2024 HIV Screening 03/04/2024 Hepatitis C Screening 03/04/2024 Social Influencers of Health Screening 03/04/2024 Depression Screening 05/01/2024 Diabetes: Annual Urine Albumin-Creatinine Ratio (uACR) 05/07/2024 Diabetes: Blood Sugar Control Test (HGBA1C) 08/20/2024 02/20/2024 COVID-19 Vaccine ( season) 2024 02/16/2021, 08/03/2020, 07/13/2020 Influenza Vaccine (#1) 2024 , 05/10/2021, 01/27/2020, Additional history exists Diabetes: Annual GFR (Glomerular Filtration Rate) 09/04/2025 09/04/2024, 09/02/2024, 09/02/2024 Hypertension/CHF/CAD Annual BMP Blood Test 09/04/2025 09/04/2024, 09/02/2024, 09/02/2024 Diabetes: Annual Foot Exam 12/31/2025 12/31/2024 Hepatitis B Vaccines Aged Out 04/02/2001, 11/02/2000, [...] Diagnosis Comments INJECTION TENDON OR LIGAMENT Routine 01/07/2025 2:30 PM EDT Plantar fasciitis INJECTION TENDON OR LIGAMENT Routine 12/31/2024 3:00 PM EDT Plantar fasciitis from Last 3 Months Results * Injection tendon or ligament (01/07/2025 2:30 PM EDT) Narrative Sudeep De La Vega DPM - 01/07/2025 2:30 PM EDT Sudeep De La Vega DPM 01/07/2025 6:10 PM Injection tendon or ligament Indications: pain Details: 25 G needle Medications: 0.5 mL lidocaine (PF) 1 %; 40 mg triamcinolone acetonide 40 mg/mL Informed Consent: Laterality: Right us Sudeep De La Vega DPM IN CLINIC/BEDSIDE ORDERABLE S Final Result * Injection tendon or ligament (12/31/2024 3:00 PM EDT) Narrative Sudeep De La Vega DPM - 12/31/2024 3:00 PM EDT Sudeep De La Vega DPM 12/31/2024 3:56 PM Injection tendon or ligament Indications: pain Details: 25 G needle Medications: 0.5 mL lidocaine (PF) 1 %; 40 mg triamcinolone acetonide 40 mg/mL Informed Consent: Laterality: Right Sudeep A Ceferino DPM IN CLINIC/BEDSIDE ORDERABLE S Final Result from Last 3 Months Insurance MEDICAID - [place] Care Teams Receiving Weigher Relationship Specialty Start Date End Date Leelee Yanes MD [address] [phone] PCP - General 06/02/23
--- OUTSIDE RECORDS SUMMARY | 2025-02-10 10:40 | XMS_ITS | Encounter Summary ---
Author Organization [employer] Address [address] [place] [address] [address] [place] [address] Care Team Providers Care Broomcorn Grader Name Role Phone Leelee Yanes MD Primary Care Provider + Reason for Visit * Reason Comments Med Refill Encounter Details Date Type Department Care Team (Late Contact Info) Description 01/06/2023 Refill [facility] [address] [place] [phone] Leelee Yanes MD [address] [place] [address] [phone] Lumbar radiculopathy; Primary osteoarthritis of left knee; [...] Description 06/02/2025 1:00 PM EST Clinical Support [facility] [address] [place] [phone] Yoana Perry RN documented as of this encounter Visit Diagnoses Diagnosis Lumbar radiculopathy Thoracic or lumbosacral neuritis or radiculitis, unspecified Primary osteoarthritis of left knee Acute bilateral low back pain, unspecified whether sciatica present documented in this encounter Additional Health Concerns Assessment Noted Time PHQ-9 Depression Total Score: 14 023 9:55 AM EDT documented as of this encounter Care Teams Broomcorn Grader Relationship Specialty Start Date End Date Leelee Yanes MD [address] [place] [phone] PCP - General Family Medicine 06/11/20 documented as of this encounter
--- OUTSIDE RECORDS SUMMARY | 2025-02-10 10:40 | XMS_ITS | Encounter Summary ---
Author Organization [employer] Address [address] [place] [address] [address] [place] [address] Care Team Providers Care Network Operations Center Technician Name Role Phone Leelee Yanes MD Primary Care Provider + Reason for Visit * Reason Comments Med Refill Encounter Details Date Type Department Care Team (Late Contact Info) Description 07/12/2022 Refill [facility] [address] [place] [address] [phone] Name, MD Charles [address] [place] [phone] Acute bilateral low back pain, unspecified whether [...] Description 06/02/2025 1:00 PM EST Clinical Support [facility] [address] [place] [phone] Yoana Perry RN documented as of this encounter Visit Diagnoses Diagnosis Acute bilateral low back pain, unspecified whether sciatica present documented in this encounter Care Teams Network Operations Center Technician Relationship Specialty Start Date End Date Leelee Yanes MD [address] [place] [phone] PCP - General Family Medicine 06/11/20 documented as of this encounter
--- OUTSIDE RECORDS SUMMARY | 2025-02-10 10:40 | XMS_ITS | Encounter Summary ---
Author Organization [employer] Address [address] [place] [address] [address] [place] [address] Care Team Providers Care Certified Executive Chef Name Role Phone Leelee Yanes MD Primary Care Provider + Reason for Visit * Reason Comments Med Refill Encounter Details Date Type Department Care Team ([facility] st Contact Info) Description 06/05/2023 Refill [facility] [address] [place] [address] Leelee Yanes MD [address] [place] [address] Lumbar radiculopathy; Primary osteoarthritis of left knee; [...] Description 06/02/2025 1:00 PM EST Clinical Support [facility] [address] [place] [address] Yoana Perry RN documented as of this encounter Visit Diagnoses Diagnosis Lumbar radiculopathy Thoracic or lumbosacral neuritis or radiculitis, unspecified Primary osteoarthritis of left knee Acute bilateral low back pain, unspecified whether sciatica present documented in this encounter Additional Health Concerns Assessment Noted Time PHQ-9 Depression Total Score: 16 024 9:59 AM EST documented as of this encounter Care Teams Certified Executive Chef Relationship Specialty Start Date End Date Leelee Yanes MD [address] [place] [phone] PCP - General Family Medicine 06/11/20 documented as of this encounter
--- OUTSIDE RECORDS SUMMARY | 2025-02-10 10:40 | XMS_ITS | Encounter Summary ---
Author Organization [facility] Address [address] [place] [address] [address] [place] [address] Care Team Providers Care Doorperson Name Role Phone Leelee Yanes MD Primary Care Provider + Encounter Details Date Type Department Care Team (Late st Contact Info) Description 05/18/2022 Orders Only [facility] MED[facility]INE [address] [place] [phone] Ghada Isidro LPN Social History Tobacco Use [...] Description 06/02/2025 1:00 PM EST Clinical Support [facility]INE [address] [place] [phone] Yoana Perry, RN documented as of this encounter Visit Diagnoses Not on filedocumented in this encounter Care Teams Doorperson Relationship Specialty Start Date End Date Leelee Yanes MD [address] [place] [phone] PCP - General Family Medicine 06/11/20 documented as of this encounter
--- OUTSIDE RECORDS SUMMARY | 2025-02-10 10:40 | XMS_ITS | Clinical Summary ---
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 Role Phone Leelee Yanes MD Primary Care Provider + Allergies Active Allergy Reactions Criticality Noted Date Comments Banana Itching Medium 01/23/2025 Throat begins to itch Ceftriaxone 05/11/2010 Other reaction(s): Unknown, unspecified Other Reaction(s): Unknown Cephalexin 05/11/2010 Other reaction(s): Unknown, unspecified Diltiazem 05/11/2010 Other reaction(s): Unknown, unspecified Pravastatin 06/21/2022 Simvastatin 05/11/2010 Other reaction(s): rash: & myalgias at 80 mg dos, Unknown Sulfamethoxazole 05/11/2010 Other reaction(s): unspecified Sulfamethoxazole-Trimethopr im Rash,Unknown Low 07/11/2019 Topiramate Unknown 07/11/2019 Trimethoprim 05/11/2010 Other reaction(s): unspecified Medications Fluticasone-Salm eterol (Advair Diskus) 250-50 MCG/ACT aerosol powder Inhale. 011 Active citalopram (CeleXA) 40 MG tablet Take 1 tablet by mouth at bed time. 013 Active zolpidem (Ambien) 10 MG tablet Take by mouth at bed time. 013 Active EPINEPHrine (Epipen) 0.3 MG/0.3ML injection syringe DIRECTED INJECTION CUANDO SEA NECESARIO ANAPHYLAXIS 30 DAYS 023 Active LORazepam (Ativan) 0.5 MG tablet TOME TAYLOR TABLETA TODOS LOS D CUANDO SEA NECESARIO 023 Active ipratropium (Atrovent) 0.03 % nasal spray INHALE 1-2 SPRAYS NASALLY NEEDED UP TO 3 TIMES A DAY. 024 Active Azelastine HCl 137 MCG/SPRAY solution INHALE 1 SPRAY IN EACH NOSTRIL TWICE DAILY 024 Active montelukast (Singulair) 10 MG tabletIndication s:Moderate persistent asthma without complication TOME TAYLOR TABLETA TODOS LOS OSWALD AL ACOSTARSE 90 tablet 3 024 Active naloxone (Narcan) 4 mg/0.1 mL nasal [...] complication, without long-term current use of insulin (HCC) USE TO TEST BLOOD SUGAR TWICE A DAY 50 strip 11 025 Active azithromycin (Zithromax Z-Clayton) 250 MG tabletIndication s:Moderate persistent asthma with exacerbation Take 2 tabs po x 1 day then 1 tab po daily x 4 days 6 tablet 025 Active atorvastatin (Lipitor) 40 MG tabletIndication s:long term care pharmacist current use of diuretic TAKE 1 TABLET BY MOUTH EVERY DAY 90 tablet 1 025 Active fluticasone (Flonase) 50 MCG/ACT nasal sprayIndications :Seasonal allergies SPRAY 2 SPRAYS IN EACH NOSTRIL EVERY MORNING 48 mL 025 Active albuterol (2.5 MG/3ML) 0.083% nebulizer solution INHALE 1 AMPULE USING A NEBULIZER EVERY 6 HOURS NEEDED FOR COUGH, WHEEZING, OR SHORTNESS OF BREATH 90 mL 1 025 Active furosemide (Lasix) 40 MG tablet TOME 1 TABLETA POR VIA ORAL TODOS LOS OSWALD 90 tablet 3 025 Active pantoprazole (ProtoNix) 40 MG EC tablet TOME 1 TABLETA POR VIA ORAL TODOS LOS OSWALD EN LA RUPERTANA 90 tablet 3 025 Active loratadine (Claritin) 10 MG tabletIndication s:Seasonal allergies TAKE 1 TABLET BY MOUTH EVERY DAY 90 tablet 025 Active Trulicity 1.5 MG/0.5ML solution auto-injector INJECT ONE PEN (=1.5MG) SUBCUTANEOUSLY ONCE A WEEK DIRECTED 2 mL 3 025 Active Ketotifen Fumarate 0.035 % solution PONGA TAYLOR GOTA EN NICOLE AFECTADO DOS VECES AL JOSÉ LUIS 5 mL 1 025 Active Acetaminophen Extra Strength 500 MG tablet TAKE 1 TABLET BY MOUTH EVERY 8 HOURS IF NEEDED. 90 tablet 025 Active nystatin (Mycostatin) 114151 UNIT/GM powder USE ON AFFECTED AREA(S) TWICE DAILY DIRECTED Active clotrimazole (Lotrimin) 1 % cream Apply topically 2 times daily for 28 days. 30 g 5 025 2024 Active cyanocobalamin (Vitamin B-12) 1000 MCG tablet Take 1 tablet (1,000 mcg) by mouth Once per day. 90 tablet 3 025 Active Multiple Vitamin (Daily-Royal Multivitamin) tablet TAKE 1 TABLET BY MOUTH WITH FOOD 90 tablet 3 025 Active traMADol (Ultram) 50 MG tabletIndication s:Lumbar radiculopathy,Pr imary osteoarthritis of left knee,Acute bilateral low back pain, unspecified whether sciatica present Take 1 tablet (50 mg) by mouth every 12 (twelve) hours if needed for severe pain for up to 28 days. Do not start before January 30, 2025. 56 tablet 025 2024 Active clotrimazole (Lotrimin) 1 % creamIndications :Candidiasis APLIQUE AL AREA AFECTADA DOS VECES AL JOSÉ LUIS EN LA MANANA Y EN LA NOCHE 30 g 1 023 2024 Discontinued(T herapy completed) buPROPion XL (Wellbutrin XL) 150 MG 24 hr tablet Take by mouth. 012 2024 Discontinued(T herapy completed) cholecalciferol (Vitamin D-3) 50 MCG (1999 UT) capsule TOME TAYLOR C PSULA TODOS LOS D 023 2024 Discontinued(T herapy completed) albuterol (ProAir HFA) 108 (90 Base) MCG/ACT inhaler 4 times a day. 011 2024 Discontinued(T herapy completed) cyanocobalamin (Vitamin B-12) 1000 MCG tablet TOME TAYLOR TABLETA TODOS LOS D 022 2024 Discontinued(T herapy completed) diclofenac (Voltaren) 75 MG EC tablet TOME TAYLOR TABLETA DOS VECES AL D A 023 2024 Discontinued(T herapy completed) thiamine (,Vitamin B-1,) 100 MG tablet TOME TAYLOR TABLETA TODOS LOS D 023 2024 Discontinued(T herapy completed) magnesium (RA Natural Magnesium) 250 MG tabletIndication s:long term care pharmacist current use of diuretic TAKE 1 TABLET BY MOUTH EVERY DAY 90 tablet 1 023 2024 Discontinued(T herapy completed) Blood Glucose Monitoring Suppl (Tiltape) w/Device kit CHECK BS BY SUBCUTANEOUS ROUTE EVERY DAY 1 kit 023 2024 Discontinued(T herapy completed) Easy Touch Lancets 33G/Twist misc USE DIRECTED TO TEST BLOOD SUGAR TWICE DAILY 100 each 5 023 2024 Discontinued(T herapy completed) cyclobenzaprine (Flexeril) 10 MG tablet Take 1 tablet (10 mg) by mouth at bedtime for 14 days. 14 tablet 024 2024 Discontinued(T herapy completed) hydrocortisone (Anusol-HC) 2.5 % rectal cream Insert into the rectum 2 times daily. 28 g 024 2024 Discontinued(T herapy completed) docusate sodium (Colace) 100 MG capsule TAKE 1 CAPSULE BY ORAL ROUTE 1 - 2 TIMES EVERY DAY NEEDED FOR CONSTIPATION 180 capsule 3 024 2024 Discontinued(T herapy completed) Nystatin powder Use on affected areas bid 1 each 3 024 2024 Discontinued(T herapy completed) traMADol (Ultram) 50 MG tabletIndication s:Lumbar radiculopathy,Pr imary osteoarthritis of left knee,Acute bilateral low back pain, unspecified whether sciatica present TAKE 1 TABLET BY MOUTH EVERY TWELVE HOURS NEEDED FOR SEVERE PAIN FOR UP TO 28 DAYS 56 tablet 025 2024 Discontinued(R eorder (will not trigger notification to Pharmacy)) Multiple Vitamin (Daily-Royal Multivitamin) tablet TAKE 1 TABLET BY MOUTH WITH FOOD 90 tablet 3 025 2024 Discontinued(R eorder (will not trigger notification to Pharmacy)) magnesium oxide (Mag-Ox) 400 (240 Mg) MG tablet Take 1 tablet (400 mg) by mouth 2 times daily for 5 days. 10 tablet 025 2024 potassium chloride CR (Klor-Con) 8 MEQ ER tablet Take 2 tablets (16 mEq) by mouth Once per day for 3 days. Do not crush, chew, or split. 6 tablet 025 2024 Active Problems Problem Noted Date Diagnosed Date Hiatal hernia 01/23/2025 Chronic vaginitis 01/23/2025 Urge incontinence of urine 03/19/2024 Long-term current use of opiate analgesic 2023 Overview (02/20/2024): Medication: Tramadol 50mg Q12H BID Indication: lumbar radiculopathy, OA bilat knees Last [facility] Agreement: 05/10/23 Assessment & Plan (02/20/2024 8:11 PM EDT): -Today was first group, she will decide if group setting or individual visit with RN is preferred. Scheduled for [facility] group 03/12/24 as requested. -Encouraged multifactorial approach [...] for Utox today, she will fu with [facility] nurse, she's aware that she should be [...] of right knee 08/23/2022 Thiamine deficiency 08/23/2022 Generalized anxiety disorder 06/24/2022 Assessment & Plan [...] has changed from most recent one (see [facility] nurse note). Next refill will be due [...] replaced if lost or stolen. FU with [facility] nurse as scheduled Assessment & Plan (06/24/2022 1:08 PM EST): Continue weight reduction, tylenol 1000mg BID and 500mg tramadol qhs FU with orthopedics recommended use of cane for ambulation counseled regarding compliance with [facility] appointments, utox ordered today was negative pharmaco education regarding opiate use including proper storage, prohibited sharing medications with others, avoid alcohol or other recreational substances counseled to FU closely with [facility] provider. Type 2 diabetes mellitus without complication Assessment & Plan (01/23/2025 3:37 PM EDT): Controlled. A1c is at goal. Continue off medications. Counseled re more frequent low calorie/carb meals. Check fgstk x 1 daily Encouraged physical activity as tolerated. FU in 6 months. Assessment & Plan (04/25/2024 2:11 PM EST): [...] again today to ENT Cobalamin deficiency 06/24/2022 Assessment & Plan (09/06/2024 12:28 PM EDT): Recheck B12 levels, she will continue p.o. supplementation Mild recurrent major depression 06/24/2022 Primary osteoarthritis [...] FU with orthopedics and consider knee arthroplasty. Class 2 severe obesity due t o excess calories with serious comorbidity and body mass index (BMI) of 39.0 to 39.9 in adult 06/24/2022 History of total hysterectomy 08/22/2018 History of total knee arthroplasty 08/17/2016 Moderate persistent asthma with exacerbation Assessment & Plan (09/06/2024 12:30 PM EDT): Improved status post Z-Clayton plus PRD Continue albuterol as needed cough, reconsult as needed recurrence of fever, chills or worsening SOB Assessment & Plan (08/24/2024 10:11 AM EDT): [...] BID - f/u as recommended Morbid obesity (CMS/HCC) 04/30/2015 Essential hypertension 04/30/2015 Assessment & Plan [...] + Flonase bid x 7d Take Acetaminophen (Tylenol )/Ibuprofen as needed to reduce fever, headache, body [...] 72 hours (temperature should be less than 100 F without medication Increase water intake Candidiasis 03/13/2024 [...] falls Refer to PT Hypokalemia 06/22/2023 08/24/2024 Assessment & Plan (09/06/2024 12:29 PM EDT): Sec to previous episode of asthma exacerbation, now resolved Advised to increase PO hydration with Pedialyte, gatorade, chicken broth etc. Recheck labs prior to next visit IFG (impaired fasting glucose) 05/31/2023 08/24/2024 Upper [...] in finger 08/23/2022 08/24/2024 Hypomagnesemia 04/30/2015 08/24/2024 Assessment & Plan (09/06/2024 12:29 PM EDT): Sec to previous episode of asthma exacerbation, now resolved Advised to increase PO hydration with Pedialyte, gatorade, chicken broth etc. Recheck labs prior to next visit Encounters Date Type Department Care Team Description 02/08/[address] [address] Jerri Weaver FNP 02/03/2025 2:00 PM EDT Clinical Support [address] [address] Yoana Perry RN Long-term current use of opiate analgesic (Primary Dx) 02/03/2025 Travel 01/24/[address] [address] Leelee Yanes MD Lumbar radiculopathy; Primary osteoarthritis of left knee; Acute bilateral low back pain, unspecified whether sciatica present 01/23/2025 2:45 PM EDT Office Visit [address] [address] Leelee Yanes MD Type 2 diabetes mellitus without complication, unspecified whether halfway insulin use (CMS/HCC) (Primary Dx); Class 2 severe obesity due to excess calories with serious comorbidity and body mass index (BMI) of 39.0 to 39.9 in adult (CMS/HCC); Dysphonia; Hiatal hernia; Chronic vaginitis; Morbid obesity (CMS/HCC); Dietary counseling; Exercise counseling 01/23/2025 Orders Only [address] [address] Leelee Yanes MD 01/23/2025 Travel 01/23/2025 Results Follow-Up [address] [address] Leelee Yanes MD Basic Metabolic Panel, Magnesium, Phosphate (As Phosphorus), Additional followed-up results: 3 01/23/2025 Telephone [facility] [address] [place] [phone] Leelee Yanes MD CRITICAL LAB 01/22/[address] [phone] Leelee Yanes MD chart prep 01/22/[address] [phone] Leelee Yanes MD 01/22/2025 Refill [facility] [address] [place] [address] Leelee Yanes MD Lumbar radiculopathy; Primary osteoarthritis of left knee; Acute bilateral low back pain, unspecified whether sciatica present 01/20/2025 Orders Only [facility] External Provider, [facility] 01/17/2025 3:00 PM EDT Office Visit [facility] [address] [place] [address] Sanchez, Karly, OD Diabetes type 2, no ocular involvement (CMS/HCC) (Primary Dx); Dry eye syndrome of both eyes; Age-related nuclear cataract of both eyes; Presbyopia of both eyes 01/17/2025 Travel 01/15/2025 Patient Outreach [facility] [address] [place] [address] Leelee Yanes MD Pre-visit Planning (SDOH screening negative and tobacco screening negative) 01/08/2025 Refill [facility] [address] [place] [address] Yulia Perez MD 01/01/2025 Refill [facility] [address] [place] [address] Leelee Yanes MD 12/31/2024 Refill [facility] [address] [place] [address] Leelee Yanes MD Lumbar radiculopathy; Primary osteoarthritis of left knee; Acute bilateral low back pain, unspecified whether sciatica present 12/18/2024 Refill [facility] [address] [place] [address] Marbella Carlin DO 12/16/2024 Refill [facility] [address] [place] [address] Leelee Yanes MD 12/10/2024 Refill [facility] [address] [place] [address] Marbella Carlin DO Seasonal allergies 12/10/2024 Refill [facility] [address] [place] [address] Leelee Yanes MD Seasonal allergies 12/04/2024 Refill [facility] [address] [place], [place] [phone] Leelee Yanes MD 12/03/2024 Refill [facility] [address] [place] [address] Leelee Yanes MD Lumbar radiculopathy; Primary osteoarthritis of left knee; Acute bilateral low back pain, unspecified whether sciatica present 12/03/2024 Refill [facility] [address] [place], [place] [phone] Marbella Carlin DO Lumbar radiculopathy; Primary osteoarthritis of left knee; Acute bilateral low back pain, unspecified whether sciatica present 11/15/2024 Orders Only GENERIC EXTERNAL DATA DEPARTMENT Provider, Generic External Data from Last 3 Months Immunizations Immunization Administration Dates Next Due Hep B, Adolescent [...] Answer Date Recorded Patient Health Questionnaire-9 Score 15 01/28/2025 Patient Health Questionnaire-9 Score 15 01/28/2025 Last PHQ-9: Questionnaire Data Not on file 0 01/28/2025 Housing Stability Answer Date Recorded What is your housing situation today? I have katt nurys 01/15/[address] you li [...] Answer Date Recorded Patient Health Questionnaire-2 Score 4 01/28/2025 Internet Access Answer Date Recorded Internet Access [...] Sign Reading Time Taken Comments Blood Pressure 130/78 01/23/2025 3:02 PM EDT Pulse 100 01/23/2025 3:02 PM EDT Temperature 36.3 C (97.3 F) 01/23/2025 3:02 PM EDT Respiratory Rate 24 01/23/2025 3:02 PM EDT Oxygen Saturation 98% 08/24/2024 9:26 AM EDT Inhaled Oxygen Concentration - - Weight 95.5 kg (210 lb 8 oz) 01/23/2025 3:02 PM EDT Height 156.2 cm (5' 1.5 ) 01/23/2025 3:02 PM EDT Body Mass Index 39.13 01/23/2025 3:02 PM EDT Plan of Treatment Upcoming Encounters Date Type Department Care Team (Late st Contact Info) Description 06/02/2025 1:00 PM EST Clinical Support [facility] [address] [place] [phone] Yoana Perry, RN Health Maintenance Due Date Last Done Comments CT Colonography 1963 FIT DNA/Cologuard 1963 FIT 1963 FOBT 1963 HIV Screening 1963 Sigmoidoscopy 1963 Disability Screening 1963 Alcohol/Substance Use Screening 1975 Hepatitis C Screening 09/26/1981 Pap Smear 09/26/1984 Cervical Cancer Screening 09/26/1993 HPV/Cotest 09/26/1993 Zoster Vaccines (2 of 2) 08/17/2021 06/22/2021 DTaP/Tdap/Td Vaccines (2 - Td or Tdap) 07/06/2022 07/06/2012, 11/11/2005 RSV Patients and Patients Aged 60 years or older (1 - Risk 60-74 years 1-dose series) 2023 Diabetes: Urine Protein Screening 05/18/2024 05/18/2023 Lipid Panel 05/18/2024 05/18/2023, 12/31, 06/25/2020, Additional history exists COVID-19 Vaccine ( season) 2024 02/16/2021, 08/03/2020, 07/13/2020 Influenza Vaccine (#1) 2024 3, 05/10/2021, 01/27/2020, Additional history exists Mammogram 05/03/2025 05/03/2024, 06/30, 05/29/2023, Additional history exists Diabetes: Hemoglobin A1C 07/23/2025 025, 02/20/2024, 07/19/2023, Additional history exists Depression Monitoring 07/28/2025 01/28/2025, 025 Diabetes: Foot Exam 12/31/2025 12/31/2024, 02/20/2024, 02/20/2024, Additional history exists SDOH Screening 01/15/2026 01/15/2025 Tobacco Screening 01/23/2026 01/23/2025 Eye Exam 01/17/2027 01/17/2025, 12/30, 01/17/2025, Additional history exists Colonoscopy 11/15/2034 11/15/2024 Colorectal Cancer Screening 11/15/2034 Hepatitis B Vaccines Aged Out 04/02/2001, 11/02/2000, [...] Comments POCT ZACHARY-14 URINE DRUG SCREEN Routine 02/03/2025 2:06 PM EDT Long-term current use of opiate analgesic BACTERIAL VAGINOSIS PANEL Routine 01/23/2025 4:18 PM EDT CHLAMYDIA/N. GONORRHOEAE RNA, TMA, UROGENITAL Routine 01/23/2025 4:18 PM EDT Chronic vaginitis POCT GLYCATED HEMOGLOBIN, TOTAL Routine 01/23/2025 3:25 PM EDT Type 2 diabetes mellitus without complication, unspecified whether terminal makeup operator insulin use ([facility]) POCT GLUCOSE Routine 01/23/2025 3:07 PM EDT Type 2 diabetes mellitus without complication, unspecified whether halfway insulin use ([facility]) VITAMIN B12/FOLATE, SERUM PANEL Routine 01/23/2025 10:46 AM EDT Cobalamin deficiency VITAMIN D,25-OH,TOTAL,IA Routine 01/23/2025 10:46 AM EDT Hypomagnesemia Cobalamin deficiency TSH W/REFLEX TO FT4 Routine 01/23/2025 1 0:46 AM EDT Hypokalemia PHOSPHATE ( PHOSPHORUS) Routine 01/23/2025 10:46 AM EDT Hypomagnesemia MAGNESIUM Routine 01/23/2025 10:46 AM EDT Hypokalemia BASIC METABOLIC PANEL Routine 01/23/2025 10:46 AM EDT Hypomagnesemia Hypokalemia US RENAL COMPLETE Routine 01/20/2025 2:4 1 PM EDT AMB REFERRAL TO PODIATRY Routine 12/31/2024 Type 2 diabetes mellitus without complication, without long-term current use of insulin ([facility]) Long toenail HEMATOXYLIN AND EOSIN STAIN Routine 11/15/2024 11:12 AM EDT GLUCOSE, WHOLE BLOOD Routine 11/15/2024 9:52 AM EDT HM COLONOSCOPY Routine 11/15/2024 BI MAMMOGRAM SCREENING TOMOSYNTHESIS BILATERAL Routine 05/03/2024 10:15 AM EST ALBUMIN, RANDOM URINE W/CREATININE Routine 05/18/2023 8:57 AM EST LIPID PANEL WITH REFLEX TO DIRECT LDL Routine 05/18/2023 8:51 AM EST Essential hypertension from Last 3 Months or Most Recently Relevant to Health Maintenance Results * (ABNORMAL) POCT ZACHARY-14 Urine Drug Screen (02/03/2025 2:06 PM EDT) THC Negative Negative Cocaine Screen, Urine Negative Negative Opiate Screen, Urine Negative Negative Methamphetamine Screen Urine Negative Negative Amphetamine Screen, Urine Negative Negative Benzodiazepines Screen, Urine Negative Negative Barbiturate Screen, Urine Negative Negative Methadone Screen, Urine Negative Negative Buprenophine Screen, Urine Negative Negative TCA, Urine Positive(A) Negative MDMA Urine Negative Negative ng/mL Oxycodone Screen, Urine Negative Negative Phencyclidine (PCP), Urine Negative Negative Propoxyphene, Urine Negative Negative Fentanyl, Urine Negative Negative Urine Urine specimen obtained by clean catch procedure / Unknown 02/03/2025 2:06 PM EDT Yoana Hogan RN - 02/03/2025 2:06 PM EDT UTOX cup Lot#[id number] Exp. 02/04/26 Internal Pass Control Leelee Yanes MD POINT OF CARE TEST ENTER /EDIT ORDERABLES Final Result * Bacterial Vaginosis (01/23/2025 4:18 PM EDT) TRICHOMONAS VAGINALIS DETECTION BY PCR NOT DETECTED Not Detect [facility] BACTERIAL VAGINOSIS DETECTION BY PCR NEGATIVE Negative [facility] Comment:The BV organism targ ets of the Xpert Xpress MVP test can becommensal in women; Xpert Xpress MVP positive results forbacterial vaginosis should be considered in conjunction withother clinical and patient information to determine thedisease status. Organisms that are not detected by the XpertXpress MVP test have also been reported to be associatedwith BV and aerobic vaginitis.The Xpert Xpress MVP test performance has not been evaluatedin patients under the age of 14. CHULA GROUP DETECTION BY PCR NOT DETECTED Not Detect [facility] Chula glab krusei PCR NOT DETECTED Not Detect [facility] 01/23/2025 4:18 PM EDT 01/24/2025 12:19 PM EDT Leelee Yanes MD LAB MICROBIOLOGY - GENER AL ORDERABLES Final Result [facility] [address] [place] [address] [phone] * Chlamydia/N. Gonorrhoeae RNA, TMA, Urogenitial (01/23/2025 4:18 PM EDT) CT PCR NOT DETECTED Not Detect. [facility] Comment:A not detected test result does not exclude the possibilityof infection because test results can be affected byimproper specimen collection, concurrent antibiotic therapy,or the number of organisms in the specimen which may bebelow the sensitivity of the test. As with many diagnostictests, results from the Xpert CT/NG assay should beinterpreted in conjunction with other laboratory andclinical data available to the clinician.Xpert CT/NG performance has not been evaluated in patientsless than 14 years of age. The assay should not be used forthe evaluationof suspected sexual abuse or for other medico-legalindications. Additional testing is recommended in anycircumstance when false positive or false negative resultscould lead to adverse medical, social or psychologicalconsequences. NG PCR NOT DETECTED Not Detect. [facility] Comment:A not detected test result does not exclude the possibilityof infection because test results can be affected byimproper specimen collection, concurrent antibiotic therapy,or the number of organisms in the specimen which may bebelow the sensitivity of the test. As with many diagnostictests, results from the Xpert CT/NG assay should beinterpreted in conjunction with other laboratory andclinical data available to the clinician.Xpert CT/NG performance has not been evaluated in patientsless than 14 years of age. The assay should not be used forthe evaluationof suspected sexual abuse or for other medico-legalindications. Additional testing is recommended in anycircumstance when false positive or false negative resultscould lead to adverse medical, social or psychologicalconsequences. Urine (Urine, Random) 01/23/2025 4:18 PM EDT 01/24/2025 12:17 PM EDT Leelee Yanes MD LAB MICROBIOLOGY - GENER AL ORDERABLES Final Result [facility] [address] [place] [address] [phone] * POCT Hgb A1c (01/23/2025 3:25 PM EDT) Hemoglobin A1C 5.5 4.0 - 5.7 % QC Media Lot # [id number] Lot# Expiration Date [id number] Blood 01/23/2025 3:25 PM EDT Result [facility] Leelee Yanes MD POINT OF CARE TEST ENTER /EDIT ORDERABLES Final Result * POCT Glucose (01/23/2025 3:07 PM EDT) Glucose Blood, POC 109 60 - 200 mg/dL Comment:random QC Media Lot # [id number] Lot# Expiration Date 3 Blood Capillary blood specimen / Unknown 01/23/2025 3:07 PM EDT Result [facility] Leelee Yanes MD POINT OF CARE TEST ENTER /EDIT ORDERABLES Final Result * Vitamin D, 25-Hydroxy, Total, Immunoassay (01/23/2025 10:46 AM EDT) Vitamin D 25-OH Total 40.7 >30 ng/mL [facility] Comment: Health Based Reference Values*< 20 ng/mL [id number] ng/mL Insufficient> 30 ng/mL Sufficient*Librado GERARDO. N Engl J Med. 2007;357:266-280There is no well-established upper level of normal vitamin Dlevels. Some laboratories use 50 ng/mL as an upper limit ofnormal. However, toxicity is patient-dependent and may occurat any level. Careful correlation with the patient'spresentation is necessary and, if there is concern forvitamin D toxicity, treatment should be consideredirrespective of the serum level.Care must be taken in interpreting Vitamin D results fromdifferent laboratories and methodologies. Published datademonstrated that results from patients undergoinghemodialysis may show a negative bias when tested withvarious automated 25-OH vitamin D assays when compared toLC-MS/MS.When testing samples from patients whose predominant form ofVitamin D is Vitamin D2, such as patients receiving VitaminD2 supplementation, results that are subtherapeutic shouldbe confirmed with another method such as LC-MS/MS. Blood 01/23/2025 10:4 6 AM EDT 01/23/2025 1:06 PM EDT Leelee Yanes MD LAB BLOOD ORDERABLES Fin al Result Performing Organization Address [facility]/ZIP Co de Phone Number [facility] [address] [place] [phone] * Vitamin B12/Folate, Serum Panel (01/23/2025 10:46 AM EDT) Vitamin B12 207 200 - 900 pg/mL [facility] Comment:NORMAL 200-900 PG/ML INDETERMINATE 160-199 PG/ML DEFICIENT < 160 PG/ML Folate 14.1 > or = 4.0 ng/mL [facility] Comment:Reference Values:> o r = 4.0 ng/mL< 4.0 ng/mL suggests folate deficiency Methotrexate, aminopterin and folinic acid(leucovorin) are chemotherapeutic agents whose molecularstructures are similar to folate; therefore, the Architectfolate assay cannot be used for patients using these drugs. Blood Venous blood specimen / Unknown 01/23/2025 10:46 AM EDT 01/23/2025 1:06 PM EDT Leelee Yanes MD LAB BLOOD ORDERABLES Fin al Result Performing Organization Address [facility]/ZIP Co de Phone Number [facility] [address] [place] [phone] * TSH with Reflex to Free T4 (01/23/2025 10:46 AM EDT) TSH reflex Free T4 1.42 0.32 - 4.0 uIU/mL [facility] Blood 01/23/2025 10:4 6 AM EDT 01/23/2025 1:06 PM EDT us Leelee Yanes MD LAB BLOOD ORDERABLES Fin al Result [facility] [address] [place] [address] [phone] * Phosphate (As Phosphorus) (01/23/2025 10:46 AM EDT) Pathologist [facility] Phosphorus 3.6 2.7 - 4.5 mg/dL [facility] Blood Venous blood specimen / Unknown 01/23/2025 10:46 AM EDT 01/23/2025 1:06 PM EDT us Leelee Yanes MD LAB BLOOD ORDERABLES Fin al Result Performing Organization Address [facility] Co de Phone Number [facility] [address] [place] [phone] * (ABNORMAL) Magnesium (01/23/2025 10:46 AM EDT) Pathologist [facility] Magnesium 1.3(LL) 1.6 - 2.6 mg/dL [facility] Comment:Critical value for M AG: Results called to and read back by:Omaira Hawkins Person calling: KATHIE Date: 01/23/25 Time: 1342 Blood Venous blood specimen / Unknown 01/23/2025 10:46 AM EDT 01/23/2025 1:06 PM EDT us Leelee Yanes MD LAB BLOOD ORDERABLES Fin al Result [facility] [address] [place] [phone] * (ABNORMAL) Basic Metabolic Panel (01/23/2025 10:46 AM EDT) Sodium 144 135 - 145 mmol/L [facility] Potassium 3.2(L) 3.3 - 5.1 mmol/L [facility] Chloride 104 96 - 108 mmol/L [facility] Carbon Dioxide 30(H) 22 - 29 mmol/L [facility] Anion Gap 13 12 - 20 [facility] Urea Nitrogen (BUN) 14 9 - 16 mg/dL [facility] Creatinine, Serum 0.95 0.5 - 1.4 mg/dL [facility] Estimated Glomerular Filt Rate 60 [facility] Comment:Chronic Kidney Disea se: Estimated GFR < 60 mL/min/1.91t9Llxpas Kidney Disease: Estimated GFR < 15 mL/min/1.73m2 Glucose 95 60 - 115 mg/dL [facility] Calcium 9.6 8.4 - 10.2 mg/dL [facility] Blood Venous blood specimen / Unknown 01/23/2025 10:46 AM EDT 01/23/2025 1:06 PM EDT us Leelee Yanes MD LAB BLOOD ORDERABLES Fin al Result [facility] [address] [place] [phone] * US Renal Complete (01/20/2025 2:41 PM EDT) Anatomical Region Laterality Modality Kidney Ultrasound 01/20/2025 2:41 PM EDT Narrative 01/20/2025 3:08 PM EDT [address] [address] Ultrasound Report Signed Patient: Ann-Marie Flores MR#: [id number] 6 : 1965 Acct:[id number] Age/Sex: 59 / F ADM Date: 01/20/25 Loc: HO.US Attending Dr: Adal Christiansen MD Ordering Physician: Adal Christiansen MD Date of Service: 01/20/25 Procedure(s): US renal BI Accession Number(s): [id number] cc: Adal Christiansen MD; Leelee Yanes MD Reason for Exam: N20.0 - Calculus of kidney EXAMINATION: US KIDNEY BILATERAL HISTORY: N20.0 - Calculus of kidney TECHNIQUE: Real-time grayscale ultrasound imaging of the kidneys was performed and images were reviewed. COMPARISON: Comparison is made with the prior examination dated 03/07/2023. FINDINGS: Right kidney: The right kidney measures 10.8 x 5.4 x 5.6 cm. Renal parenchymal echotexture and thickness are normal. There are no masses. There is no hydronephrosis or renal calculi. Left Kidney: The left kidney measures 8.9 x 4.8 x 4.9 cm. Renal parenchymal echotexture and thickness are normal. There are no masses. There is no hydronephrosis or renal calculi. US/US renal BI IMPRESSION: Unremarkable renal ultrasound. Electronically signed by: Shay Tim MD 01/20/2025 03:05 PM EDT Dictated By: Shay Tim MD Signed By: <Electronically signed by Shay Tim MD in OV> 01/20/25 1505 DD/ 1441 TD/TT: 01/20/25 1450 Milanese Knitting Machine Operator: Procedure Note Donotuseinterpreter, Image - 01/20/[address] [address] Ultrasound Report Signed Patient: Ann-Marie Flores [facility]#: [id number] 6 : 1965Acct:[id number] Age/Sex: 59 / FADM Date: 01/20/25 Loc: HO.US Attending Dr: Adal Christiansen MD Ordering Physician: Adal Christiansen MD Date of Service: 01/20/25 Procedure(s): US renal BI Accession Number(s): [id number] cc: Adal Christiansen MD; Leelee Yanes MD Reason for Exam: N20.0 - Calculus of kidney EXAMINATION: US KIDNEY BILATERAL HISTORY: N20.0 - Calculus of kidney TECHNIQUE: Real-time grayscale ultrasound imaging of the kidneys was performed and images were reviewed. COMPARISON: Comparison is made with the prior examination dated 03/07/2023. FINDINGS: Right kidney: The right kidney measures 10.8 x 5.4 x 5.6 cm. Renal parenchymal echotexture and thickness are normal. There are no masses. There is no hydronephrosis or renal calculi. Left Kidney: The left kidney measures 8.9 x 4.8 x 4.9 cm. Renal parenchymal echotexture and thickness are normal. There are no masses. There is no hydronephrosis or renal calculi. US/US renal BI IMPRESSION: Unremarkable renal ultrasound. Electronically signed by: Shay Tim MD 01/20/2025 03:05 PM EDT Dictated By: Shay Tim MD Signed By: <Electronically signed by Shay Tim MD in OV> 01/20/25 1505 DD/ 1441 TD/TT: 01/20/25 1450 Milanese Knitting Machine Operator: [facility] External Provider IMG US PROCEDURES Final Result * Referral to Podiatry (12/31/2024) Leelee Yanes MD OUTPATIENT REFERRAL ALINA MCCORMICK Final Result * Hematoxylin and Eosin Stain (11/15/2024 11:12 AM EDT) 11/15/2024 11:1 2 AM EDT 11/15/2024 12:15 PM EDT Narrative [facility] - 11/20/2024 10:57 AM EDT ----- ------- Name: Ann-Marie Flores Age/Sex: 59/F : 1965 Unit#: [id number] Attend Dr: Shay Araya MD Re11/15/24 Status: [facility] Location: [facility] Disch: ----- ------- SPEC : [id number] RECD: 11/15/24-1215 STATUS: CHARAN PLASCENCIA NUM: [id number] BRANDON: 11/15/24-1112 [facility] DR: Shay Araya MD ENTERED: 11/15/24-1229 SP TYPE: Surgical OTHR DR: Leelee Yanes MD ORDERED: HE Stain/3, Gross Micro L4, Special st. 2, AB/PAS Addendum Addendum 1 Entered: 11/20/24-105 Additional level with AB/PAS is negative for intestinal metaplasia. Control stains appropriately. Addendum Signed (signature on file) Denise Neumann 11/20/24 1057 ----- ------- Diagnosis Esophagogastric junction, at 35 cm, biopsy: Squamocolumnar mucosa with minimal chronic inflammation; no intestinal metaplasia seen on initial levels; negative for dysplasia. Comment: Additional level with AB/PAS stain pending; addendum to follow. Clinical History Pre-Op Dx: Reflux, dysphagia Post-Op Dx: Reflux, hiatal hernia, diverticulosis, hemorrhoids Microscopic Description Microscopic sections reviewed. Material Received EG junction at 35 cm. Gross Description Received in formalin labeled EG junction at 35 cm are three dong-pink rectangular tissue fragments ranging from 0.3-0.5 cm, submitted in toto in a cassette labeled A. CEDS Special studies ordered and performed: AB/PAS stains on A1. CONTINUED ON NEXT PAGE ----- ------- Name: Ann-Marie Flores Tao Age/Sex: 59/F : 1965 Unit#: [id number] Attend Dr: Shay Araya MD Re11/15/24 Status: [facility] Location: [facility] Disch: ----- ------- SPEC : [id number] RECD: 11/15/24 STATUS: CHARAN THAIS NUM: [id number] BRANDON: 11/15/24-1112 [facility] DR: Shay Araya MD ENTERED: 11/15/24-1229 SP TYPE: Surgical OTHR DR: Leelee Yanes MD ORDERED: HE Stain/3, Gross Micro L4, Special st. 2, AB/PAS IHC S/NG Disclaimer NOTE: Unless otherwise stated, all tissue is formalin-fixed and paraffin-embedded. Some or all of the immunohistochemical tests reported herein may have been developed and their performance characteristics determined by [facility]. They have not been cleared or approved by the U.S. Food and Drug Administration (FDA). However, the FDA has determined that such clearance or approval is not necessary. This laboratory is certified under the Clinical Laboratory Improvement Amendments of 1988 (CLIA) as qualified to perform high complexity clinical laboratory testing. Copies To: Leelee Yanes MD [facility] [address] [place] [address] Shay Araya MD [address] [place] [address] ----- ------- Signed (signature on file) Denise Stockton 11/18/24 1459 ----- ------- END OF REPORT us Generic External Data Provider LAB BLOOD ORDERAB LES Final Result [facility] [address] [place] [address] [phone] * Glucose, Whole Blood (11/15/2024 9:52 AM EDT) Glucose, Whole Blood 94 60 - 115 mg/dL [facility] Comment:METER #: [id number] 11/15/2024 9:52 AM EDT 11/15/2024 9:57 AM EDT us Generic External Data Provider LAB BLOOD ORDERAB LES Final Result [facility] [address] [place] [address] [phone] * Hm Colonoscopy (11/15/2024) Colonoscopy Normal Normal Narrative Latanya Carrizales - 11/15/2024 Recommended 10 years. See See external hospital admission note on 11/15/2024 us Historical Provider HEALTH MAINTENANCE Final Result * BI Mammogram Screening Tomosynthesis Bilateral (05/03/2024 10:15 AM EST) Anatomical Region Laterality Modality Breast Bilateral Mammography 05/03/2024 10:1 5 AM EST Narrative 05/12/2024 8:49 AM EST [address] [place] [address] Mammography Report Signed with Addenda Patient: Ann-Marie Flores MR#: [id number] 6 : 1965 Acct:[id number] Age/Sex: 58 / F ADM Date: 05/03/24 Loc: HO.MAMMO Attending Dr: Leelee Yanes MD Ordering Physician: Leelee Yanes MD Results: 2Be nign Findings Date of Service: 05/03/24 Follow Up: 1 Year From Orig inal Mammogram Procedure(s): MM tomosynthesis screening BI Accession Number(s): [id number] cc: Leelee Yanes MD ADDENDUM ADDENDUM #1 ADDENDUM: The current mammogram has been reviewed and remains BI-RADS as follows OVERALL ASSESSMENT: BI-RADS 2 - Benign Findings RECOMMENDATION: 1 year F/U Electronically signed by: Tricia German DO 05/27/2024 03:27 PM EST Addendum Dictated By: Tricia German DO Addendum Signed By: <Electronically signed by Tricia German DO in OV> 05/27/24 1527 Addendum Cosigned By: [...] OV> 05/12/24 0847 DD/ 14 TD/TT: 05/03/241024 Milanese Knitting Machine Operator: Procedure Note Donotuseinterpreter, Image - 05/27/2024 [facility] [address] [place], [place] [address] Mammography Report Signed with Addenda Patient: Ann-Marie Flores [facility]#: [id number] 6 : 1965Acct:[id number] Age/Sex: 58 / FADM Date: 05/03/24 Loc: HO.MAMMO Attending Dr: Leelee Yanes MD Ordering Physician: Leelee Yanes MDResults: 2Be nign Findings Date of Service: 05/03/24Follow Up: 1 Year From Orig inal Mammogram Procedure(s): MM tomosynthesis screening BI Accession Number(s): [id number] cc: Leelee Yanes MD ADDENDUM ADDENDUM #1 [...] OV> 05/12/24 0847 DD/ 14 TD/TT: 05/03/241024 Milanese Knitting Machine Operator: Leelee Yanes MD G BI PROCEDURES Edited Result - Final * Albumin, Random Urine W/Creatinine (05/18/2023 8:57 AM EST) Creatinine, Urine 309.29 mg/dL [facility] Microalbumin Urine 9.0 mg/L [facility] Microalbum Creatinine Ratio Ur 2.9 <30 ug/mg cr [facility] Comment:Albumin/Creatinine R atio Reference Ranges: Normal: < 30 ug/mg creatinine Microalbuminuria: 30 - 300 ug/mg creatinineClinical Albuminuria: > 300 ug/mg creatinine 05/18/2023 8:57 AM EST 05/18/2023 11:33 AM EST Leelee Yanes MD LAB URINE ORDERABLES Fin al Result [facility] [address] [place] [phone] * (ABNORMAL) Lipid Panel with Reflex to Direct LDL (05/18/2023 8:51 AM EST) Triglycerides 278(H) <150 mg/dL [facility] Comment:Desirable Triglyceri de: less than 150 mg/dLBorderline High Triglyceride 150-199 mg/dLHigh Triglyceride: 200-499 mg/dLVery High Triglyceride: greater than or equal to 5OO mg/dL Cholesterol 168 <200 mg/dL [facility] Comment:Desirable Cholestero l: less than 200 mg/dLBorderline High Cholesterol: 200-239 mg/dLHigh Cholesterol: greater than 239 mg/dL LDL Cholesterol Calculated 77 <100 mg/dL [facility] Comment:Desirable LDL: less than 100 mg/dLNear Optimal/Above Optimal LDL: 110- 129 mg/dLBorderline High LDL: 130-159 mg/dLHigh LDL: 160-189 mg/dLVery High LDL: greater than or equal to 190 mg/dL HDL Cholesterol 36(L) >40 mg/dL [facility] Comment:Desirable HDL: great er than 40 mg/dL Note: This HDL assay may give artificially low results in patients with liver disease. Blood 05/18/2023 8:51 AM EST 05/18/2023 11:48 AM EST Leelee Yanes MD LAB BLOOD ORDERABLES Fin al Result [facility] [address] [place] [phone] [phone] from Last 3 Months or Most Recently Relevant to Health Maintenance Insurance [employer]3 Care Teams Cylinder Die Machine Operator Relationship Specialty Start Date End Date Leelee Yanes MD [address] [place] [address] PCP - General Family Medicine 06/11/20
--- OUTSIDE RECORDS SUMMARY | 2025-02-10 10:40 | XMS_ITS | Encounter Summary ---
Author Organization [employer] Address [address] [facility] 7t [place] [address] Care Team Providers Care Custodial Services Manager Name Role Phone Leelee Yanes MD Primary Care Provider + Reason for Visit * Reason Comments Med Refill Encounter Details Date Type Department Care Team (Late st Contact Info) Description 06/10/2024 Refill [facility] [address] [place] [address] Leelee Yanes MD [address] [place] [address] Lumbar radiculopathy; Primary osteoarthritis of left knee; [...] Description 06/02/2025 1:00 PM EST Clinical Support [facility] [address] [place] [address] Yoana Perry RN documented as of this encounter Visit Diagnoses Diagnosis Lumbar radiculopathy Thoracic or lumbosacral neuritis or radiculitis, unspecified Primary osteoarthritis of left knee Acute bilateral low back pain, unspecified whether sciatica present documented in this encounter Additional Health Concerns Assessment Noted Time PHQ-9 Depression Total Score: 16 024 9:59 AM EST documented as of this encounter Care Teams Custodial Services Manager Relationship Specialty Start Date End Date Leelee Yanes MD [address] [place] [address] PCP - General Family Medicine 06/11/20 documented as of this encounter
--- OUTSIDE RECORDS SUMMARY | 2025-02-10 10:40 | XMS_ITS | Encounter Summary ---
Author Organization [employer] Address [address] [place] [address] 7t [place] [address] Care Team Providers Care Research And Development Engineer Name Role Phone Leelee Yanes MD Primary Care Provider + Reason for Visit * Reason Comments Med Refill Encounter Details Date Type Department Care Team ([facility] st Contact Info) Description 05/22/2024 Refill [facility] [address] [place] [address] Leelee Yanes MD [address] [place], [place] [phone] Type 2 diabetes mellitus without complication, without long-term current use of insulin ([facility]) Social History Tobacco Use Types Packs/Day [...] Description 06/02/2025 1:00 PM EST Clinical Support [facility] [address] [place] [address] Yoana Perry RN documented as of this encounter Visit Diagnoses Diagnosis Type 2 diabetes mellitus without complication, without long-term current use of insulin (HCC) documented in this encounter Additional Health Concerns Assessment Noted Time PHQ-9 Depression Total Score: 16 024 9:59 AM EST documented as of this encounter Care Teams Research And Development Engineer Relationship Specialty Start Date End Date Leelee Yanes MD [address] [place] [address] PCP - General Family Medicine 06/11/20 documented as of this encounter
--- OUTSIDE RECORDS SUMMARY | 2025-02-10 10:40 | XMS_ITS | Encounter Summary ---
Author Organization [employer] Address [address] [facility] 7t [place] [address] Care Team Providers Care Insulation Engineman Name Role Phone Leelee Yanes MD Primary Care Provider + Encounter Details Date Type Department Care Team ([facility] Contact Info) Description 07/19/2022 Orders Only [facility] [address] [place], [place] [phone] Marbella Munoz LPN Social History Tobacco Use [...] Description 06/02/2025 1:00 PM EST Clinical Support [facility] [address] [place], [place] [phone] Yoana Perry RN documented as of this encounter Visit Diagnoses Not on filedocumented in this encounter Care Teams Insulation Engineman Relationship Specialty Start Date End Date Leelee Yanes MD [address] [place] [address] PCP - General Family Medicine 06/11/20 documented as of this encounter
--- OUTSIDE RECORDS SUMMARY | 2025-02-10 10:40 | XMS_ITS | Encounter Summary ---
Author Organization [employer] Address [address] [place] [address] [address] [place] [address] Care Team Providers Care Car Ferrier Name Role Phone Leelee Yanes MD Primary Care Provider + Reason for Visit * Reason Comments Med Refill Encounter Details Date Type Department Care Team ([facility] st Contact Info) Description 06/05/2023 Refill [facility] [address] [place] [address] Leelee Yanes MD [address] [place] [address] Lumbar radiculopathy; Primary osteoarthritis of left knee; [...] Description 06/02/2025 1:00 PM EST Clinical Support [facility] [address] [place] [address] Yoana Perry RN documented as of this encounter Visit Diagnoses Diagnosis Lumbar radiculopathy Thoracic or lumbosacral neuritis or radiculitis, unspecified Primary osteoarthritis of left knee Acute bilateral low back pain, unspecified whether sciatica present documented in this encounter Additional Health Concerns Assessment Noted Time PHQ-9 Depression Total Score: 16 024 9:59 AM EST documented as of this encounter Care Teams Car Ferrier Relationship Specialty Start Date End Date Leelee Yanes MD [address] [place] [address] PCP - General Family Medicine 06/11/20 documented as of this encounter
--- OUTSIDE RECORDS SUMMARY | 2025-02-10 10:40 | XMS_ITS | Encounter Summary ---
Author Organization [employer] Address [address] [facility] [address]t [place] [address] Care Team Providers Care Cat Scan Tech Name Role Phone Leelee Yanes MD Primary Care Provider + Reason for Visit * Reason Comments Med Refill Encounter Details Date Type Department Care Team (Late Contact Info) Description 09/04/2022 Refill [facility] [address] [place] [address] Leelee Yanes MD [address] [place] [address] snf current use of diuretic Social History Tobacco [...] Description 06/02/2025 1:00 PM EST Clinical Support [facility] [address] [place] [address] Yoana Perry RN documented as of this encounter Visit Diagnoses Diagnosis clinical specialist vascular current use of diuretic documented in this encounter Additional Health Concerns Assessment Noted Time PHQ-9 Depression Total Score: 14 023 9:55 AM EDT documented as of this encounter Care Teams Cat Scan Tech Relationship Specialty Start Date End Date Leelee Yanes MD [address] [place] [address] PCP - General Family Medicine 06/11/20 documented as of this encounter
--- OUTSIDE RECORDS SUMMARY | 2025-02-10 10:40 | XMS_ITS | Encounter Summary ---
Author Organization [employer] Address [address] [place] [address] [address]t [place] [address] Care Team Providers Care Purchaser Name Role Phone Leelee Yanes MD Primary Care Provider + Reason for Visit * Reason Comments Med Refill Encounter Details Date Type Department Care Team ([facility] st Contact Info) Description 03/15/2024 Refill [facility] [address] [place] [address] Leelee Yanes MD [address] [place], [place] [phone] Type 2 diabetes mellitus without complication, without long-term current use of insulin ([facility]) Social History Tobacco Use Types [...] EST Clinical Support [facility] [address] [place] [address] Yoana Perry RN documented as of this encounter Visit Diagnoses Diagnosis Type 2 diabetes mellitus without complication, without long-term current use of insulin (HCC) documented in this encounter Additional Health Concerns Assessment Noted Time PHQ-9 Depression Total Score: 16 024 9:59 AM EST documented as of this encounter Care Teams Purchaser Relationship Specialty Start Date End Date Leelee Yanes MD [address] [place] [address] PCP - General Family Medicine 06/11/20 documented as of this encounter
--- OUTSIDE RECORDS SUMMARY | 2025-02-10 10:40 | XMS_ITS | Encounter Summary ---
Author Organization [employer] Address [address] [facility] 7t [place] [address] Care Team Providers Care Shared Services And Outsourcing Manager Name Role Phone Leelee Yanes MD Primary Care Provider + Encounter Details Date Type Department Care Team ([facility] st Contact Info) Description 02/17/2023 Telephone [facility] [address] [place], [place] [phone] Leelee Yanes MD [address] [place] [address] Social History Tobacco Use Types Packs/Day Years [...] C3 requesting a call in regards to HIDE WASHER form. Please contact parvez at [phone] documented in this encounter Plan of Treatment Upcoming Encounters Date Type Department Care Team (Late st Contact Info) Description 06/02/2025 1:00 PM EST Clinical Support [facility] [address] [place] [address] Yoana Perry, RN documented as of this encounter Visit Diagnoses Not on filedocumented in this encounter Additional Health Concerns Assessment Noted Time PHQ-9 Depression Total Score: 14 023 9:55 AM EDT documented as of this encounter Care Teams Shared Services And Outsourcing Manager Relationship Specialty Start Date End Date Leelee Yanes MD [address] [place] [address] PCP - General Family Medicine 06/11/20 documented as of this encounter
--- OUTSIDE RECORDS SUMMARY | 2025-02-10 10:40 | XMS_ITS | Encounter Summary ---
Author Organization [employer] Address [address] [facility] 7t [place] [address] Care Team Providers Care Kiln Maintenance Name Role Phone Leelee Yanes MD Primary Care Provider + Reason for Visit * Reason Comments Med Refill Encounter Details Date Type Department Care Team (Late st Contact Info) Description 06/06/2024 Refill [facility] CHC MED & PEDS [address] [place] [address] Leelee Yanes MD [address] [place] [address] Lumbar radiculopathy; Primary osteoarthritis of left knee; [...] Description 06/02/2025 1:00 PM EST Clinical Support [facility] MEDICINE [address] [place] [address] Yoana Perry RN documented as of this encounter Visit Diagnoses Diagnosis Lumbar radiculopathy Thoracic or lumbosacral neuritis or radiculitis, unspecified Primary osteoarthritis of left knee Acute bilateral low back pain, unspecified whether sciatica present documented in this encounter Additional Health Concerns Assessment Noted Time PHQ-9 Depression Total Score: 16 024 9:59 AM EST documented as of this encounter Care Teams Kiln Maintenance Relationship Specialty Start Date End Date Leelee Yanes MD [address] [place] [address] PCP - General Family Medicine 06/11/20 documented as of this encounter
--- OUTSIDE RECORDS SUMMARY | 2025-02-10 10:40 | XMS_ITS | Encounter Summary ---
Author Organization [employer] Address [address] [place] [address] 7t [place] [address] Care Team Providers Care Water Mechanic Name Role Phone Leelee Yanes MD Primary Care Provider + Reason for Visit * Reason Onset Date Comments Med Refill 05/24/2024 Encounter Details Date Type Department Care Team ([facility] st Contact Info) Description 05/24/2024 Telephone [facility] MEDICINE [address] [place], [place] [phone] Leelee Yanes MD [address] [place], [place] [phone] Med Refill Social History Tobacco Use Types [...] MG/0.5ML solution pen-injector To be sent to: [facility] - [place], [place] - [address] [facility] PT DOES NOT HAVE ANY MEDICATION LEFT documented in this encounter Plan of Treatment Upcoming Encounters Date Type Department Care Team (Late st Contact Info) Description 06/02/2025 1:00 PM EST Clinical Support [facility] MEDICINE [address] [place] [address] Yoana Perry RN documented as of this encounter Visit Diagnoses Not on filedocumented in this encounter Additional Health Concerns Assessment Noted Time PHQ-9 Depression Total Score: 16 024 9:59 AM EST documented as of this encounter Care Teams Water Mechanic Relationship Specialty Start Date End Date Leelee Yanes MD [address] [place] [phone] PCP - General Family Medicine 06/11/20 documented as of this encounter
--- OUTSIDE RECORDS SUMMARY | 2025-02-10 10:40 | XMS_ITS | Encounter Summary ---
Author Organization [employer] Address [address] [place] [address] 7t [place] [address] Care Team Providers Care University Librarian Name Role Phone Leelee Yanes MD Primary Care Provider + Reason for Visit * Reason Comments Med Refill Encounter Details Date Type Department Care Team (Late st Contact Info) Description 01/18/2023 Refill [facility] MEDICINE [address] [place] [address] [phone] Leelee Yanes MD [address] [place] [address] [phone] Social History Tobacco Use Types Packs/Day Years [...] Description 06/02/2025 1:00 PM EST Clinical Support [facility] MEDICINE [address] [place] [address] [phone] Yoana Perry RN documented as of this encounter Visit Diagnoses Not on filedocumented in this encounter Additional Health Concerns Assessment Noted Time PHQ-9 Depression Total Score: 14 023 9:55 AM EDT documented as of this encounter Care Teams University Librarian Relationship Specialty Start Date End Date Leelee Yanes MD [address] [place] [phone] PCP - General Family Medicine 06/11/20 documented as of this encounter
--- OUTSIDE RECORDS SUMMARY | 2025-02-10 10:40 | XMS_ITS | Encounter Summary ---
Author Organization [employer] Address [address] [place] [address] 7t [place] [address] Care Team Providers Care Cashier Clerk Name Role Phone Leelee Yanes MD Primary Care Provider + Encounter Details Date Type Department Care Team (Late st Contact Info) Description 05/03/2022 Orders Only [facility] CHC MED & PEDS [address] [place] [address] Marbella Munoz LPN Social History Tobacco Use [...] 1:00 PM EST Clinical Support [facility] MEDICINE [address] [place] [address] Yoana Perry, RN documented as of this encounter Visit Diagnoses Not on filedocumented in this encounter Care Teams Cashier Clerk Relationship Specialty Start Date End Date Leelee Yanes MD [address] [place], [place] [phone] PCP - General Family Medicine 06/11/20 documented as of this encounter
--- OUTSIDE RECORDS SUMMARY | 2025-02-10 10:40 | XMS_ITS | Encounter Summary ---
Author Organization [facility] Address [address] [place] [address] 7 [place] [address] Care Team Providers Care Field Marketing Representative Name Role Phone Leelee Yanes MD Primary Care Provider + Reason for Visit * Reason Comments Med Refill Encounter Details Date Type Department Care Team ([facility] Contact Info) Description 05/24/2022 Refill [facility] MEDICINE [address] [place] [phone] Leelee Yanes MD [address] [place] [phone] Acute bilateral low back pain, unspecified whether [...] Description 06/02/2025 1:00 PM EST Clinical Support [facility] MEDICINE [address] [place] [phone] Yoana Perry RN documented as of this encounter Visit Diagnoses Diagnosis Acute bilateral low back pain, unspecified whether sciatica present documented in this encounter Care Teams Field Marketing Representative Relationship Specialty Start Date End Date Leelee Yanes MD [address] [place] [address] [phone] PCP - General Family Medicine 06/11/20 documented as of this encounter
--- OUTSIDE RECORDS SUMMARY | 2025-02-10 10:40 | XMS_ITS | Encounter Summary ---
Author Organization [employer] Address [address] [place] [address] 7t [place] [address] Care Team Providers Care Livestock Laborer Name Role Phone Leelee Yanes MD Primary Care Provider + Reason for Visit * Reason Comments Med Refill Encounter Details Date Type Department Care Team ([facility] st Contact Info) Description 02/08/2025 Refill [facility] MEDICINE [address] [place], [place] [phone] [facility] [address] [place] [address] Social History Tobacco Use Types Packs/Day Years [...] Description 06/02/2025 1:00 PM EST Clinical Support [facility] MEDICINE [address] [place] [address] Yoana Perry RN documented as of this encounter Visit Diagnoses Not on filedocumented in this encounter Additional Health Concerns Assessment Noted Time PHQ-9 Depression Total Score: 15 025 9:19 AM EDT documented as of this encounter Care Teams Livestock Laborer Relationship Specialty Start Date End Date Leelee Yanes MD [address] [place] [address] PCP - General Family Medicine 06/11/20 documented as of this encounter
--- OUTSIDE RECORDS SUMMARY | 2025-02-10 10:40 | XMS_ITS | Encounter Summary ---
Author Organization [employer] Address [address] [place] [address] 7[address] [place] [address] Care Team Providers Care Plastic Die Maker Apprentice Name Role Phone Leelee Yanes MD Primary Care Provider + Reason for Visit * Reason Comments Med Refill Encounter Details Date Type Department Care Team (Late Contact Info) Description 08/31/2022 Refill [facility] MEDICINE [address] [place] [address] Leelee Yanes MD [address] [place] [address] Acute bilateral low back pain, unspecified whether [...] Description 06/02/2025 1:00 PM EST Clinical Support [facility] MEDICINE [address] [place] [address] Yoana Perry, ESTEFANÍA documented as of this encounter Visit Diagnoses Diagnosis Acute bilateral low back pain, unspecified whether sciatica present documented in this encounter Additional Health Concerns Assessment Noted Time PHQ-9 Depression Total Score: 14 023 9:55 AM EDT documented as of this encounter Care Teams Plastic Die Maker Apprentice Relationship Specialty Start Date End Date Leelee Yanes MD [address] [place] [address] PCP - General Family Medicine 06/11/20 documented as of this encounter
[2025-02-10 11:37] LABS: Potassium 3.2 mmol/L (3.3-5.1)
[2025-02-10 12:09] LABS: Magnesium 1.1 mg/dL (1.6-2.6)
== END 2025-02-10 10:37 | disposition home or self-care (01) ==
LOC: HO.HHCL 10:36
PROVIDERS: PCP Internal Medicine; Visit Provider Internal Medicine
DX: E87.6 Hypokalemia (principal); E83.42 Hypomagnesemia
CPT/HCPCS: 36415; 83735; 84132

== ENCOUNTER 2025-02-10 14:52 | Emergency (ER) | payer MEDICAID, SELFPAY ==
[2025-02-10] VITALS (7 sets, daily range): BP systolic 104–149; BP diastolic 55–91; PULSE 68–92; RESP 13–22; TEMP 36.5–36.9; O2SAT 96–98; BMI 39.3
--- NOTE | ~2025-02-10 | XR_ITS ---
CLINICAL HISTORY: chest pain 2 view chest x-ray Comparison: CR/SR - XR CHEST 1 VIEW - 09/02/24 16:12 EDT Findings: No consolidation or effusion. Heart size is normal. No acute fracture. IMPRESSION: 1. No acute findings. This document has been electronically signed by: Saige Morocho MD on 02/10/2025 16:22:16
--- NOTE | 2025-02-10 15:14 | ED.GENADULT ---
HPI - General Adult General Chief complaint: Recheck/Abnormal Lab/Rx Stated complaint: abnormal labs Time Seen by Provider: 02/10/25 16:01 Related Data Home Medications ?Medication ?Instructions ?Recorded ?Confirmed atorvastatin 40 mg tablet 40 mg PO BEDTIME 02/27/20 12/10/24 epinephrine 0.3 mg/0.3 mL 0.3 mg IM Q10M PRN Anaphylaxis 02/27/20 12/10/24 injection, auto-injector fluticasone propionate 50 1 spray intranasal DAILY 02/27/20 12/10/24 mcg/actuation nasal spray,suspension (Flonase Allergy Relief) furosemide 40 mg tablet 40 mg PO DAILY 02/27/20 12/10/24 loratadine 10 mg capsule 10 mg PO DAILY 02/27/20 12/10/24 lorazepam 0.5 mg tablet 0.5 mg PO BID PRN Anxiety 02/27/20 12/10/24 montelukast 10 mg tablet 10 mg PO BEDTIME 02/27/20 12/10/24 pantoprazole 40 mg tablet,delayed 40 mg PO DAILY 02/27/20 12/10/24 release zolpidem 10 mg tablet 10 mg PO BEDTIME PRN Insomnia 02/27/20 12/10/24 citalopram 40 mg tablet 1 tab PO QAM 11/05/20 12/10/24 hydroxyzine HCl 25 mg tablet 1 tab PO BEDTIME PRN itch 11/05/20 12/10/24 cyanocobalamin (vitamin B-12) 1,000 mcg PO DAILY 08/17/22 12/10/24 1,000 mcg tablet (Vitamin B-12) multivitamin with folic acid 400 1 tab PO DAILY 08/17/22 12/10/24 mcg tablet (Daily-Royal (with folic acid)) tramadol 50 mg tablet 50 mg PO BID PRN severe pain 12/14/22 12/10/24 blood sugar diagnostic (FreeStyle #10 ea 03/20/23 12/10/24 Lite Strips) lancets 33 gauge (Easy Touch Twist #100 ea 03/20/23 12/10/24 Lancets) ipratropium bromide 21 mcg (0.03 1 - 2 spray intranasal DAILY PRN 06/02/23 12/10/24 %) nasal spray Nasal Congestion dulaglutide 1.5 mg/0.5 mL 1.5 mg subcut QWEEK 11/13/24 12/10/24 subcutaneous pen injector (Trulicity) Previous Rx's ?Medication ?Instructions ?Recorded albuterol sulfate 2.5 mg/3 mL 2.5 mg (3 mL) inhalation Q4H PRN 10/30/20 (0.083 %) solution for nebulization shortness of breath or wheezing #75 mL docusate sodium 100 mg capsule 100 mg PO BID 14 days #28 caps 09/22/22 walker #1 ea 09/23/22 cyclobenzaprine 10 mg tablet 10 mg PO TID PRN muscle spasm #10 01/30/23 tabs cholecalciferol (vitamin D3) 25 25 mcg PO DAILY #90 tabs 05/17/23 mcg (1,000 unit) tablet magnesium oxide 400 mg PO DAILY low magnesium #30 06/19/23 caps thiamine HCl (vitamin B1) 100 mg 100 mg PO DAILY #90 tabs 06/22/23 tablet albuterol sulfate 90 mcg/actuation 1 puff PO Q4-6H PRN for wheezing 08/04/23 aerosol inhaler (Ventolin HFA) #18 ea fluticasone 250 mcg-salmeterol 50 1 inh inhalation BID #60 ea 01/16/25 mcg/dose blistr powdr for inhalation (Advair Diskus) Allergies Allergy/AdvReac Type Severity Reaction Status Date / Time sulfamethoxazole (From Allergy Intermediate RASH Verified 02/10/25 15:18 Bactrim) PMFSH Past Medical History Medical History Osteoarthritis of left knee Hypersomnolence Renal calculi Diabetes COVID-19 vaccine administered COPD (chronic obstructive pulmonary disease) Allergic rhinitis KAYLEE on CPAP Obesity (BMI 30-39.9) Obesity Axillary hidradenitis suppurativa GERD (gastroesophageal reflux disease) Asthma Arthritis Hypertension Hyperlipidemia Surgical History S/P total knee arthroplasty (09/20/22) History of carpal tunnel release Hx of knee surgery Hx of cystoscopy History of esophagogastroduodenoscopy (EGD) H/O colonoscopy Hx of total knee replacement History of salpingoophorectomy H/O lithotripsy H/O hemicolectomy H/O tubal ligation Hx of cholecystectomy S/P laparoscopic sleeve gastrectomy Family History Family History Mother No problems noted. Father No problems noted. Son No problems noted. Daughter No problems noted. Son No problems noted. Sister No problems noted. Sister No problems noted. Brother No problems noted. Brother No problems noted. Brother No problems noted. Brother No problems noted. 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) Alcohol intake: never Patient Tobacco Use Status: Never used Tobacco Smoked in Last 30 Days: No Use of substances other than those prescribed or required for medical reasons: No Advance Directives: No Advance Directives Information Provided: No Advance Directives Date on File: 03/08/15 Do you have a plan to hurt others: No Plan Patient : No service: No Current occupational status: disabled 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 Physical Exam ED Vital Signs: Vital Signs - 24 hr 02/10/25 15:11 02/10/25 15:39 02/10/25 17:54 Temperature 98.0 F 97.7 F 98.4 F Pulse Rate 78 92 73 Respiratory Rate 18 14 18 Blood Pressure 126/84 149/91 H 117/68 Pulse Oximetry 98 97 97 Oxygen Delivery Method Room Air Room Air Room Air 02/10/25 19:09 02/10/25 19:17 Temperature 98.4 F 98.5 F Pulse Rate 73 68 Respiratory Rate 18 13 Blood Pressure 117/68 111/57 L Pulse Oximetry 97 96 Oxygen Delivery Method Room Air Room Air BMI result Body Mass Index 39.3 Course Course Course Narrative: Rapid medical examination performed in triage by Zeina Leiva PA-C. Patient is a 59 year old assigned female at presenting to the emergency department with low magnesium and potassium reported to her by [facility]. Detailed physical exam and review of systems are deferred to the district manager primary care sales. EKG and labs ordered. Patient placed back in the waiting room pending room availability and results. Medications Administered Discontinued Medications Generic Name Dose Route Start Last Admin Trade Name Freq PRN Reason Stop Dose Admin Magnesium Sulfate 2 gm in 50 mls @ 150 mls/hr 02/10/25 16:03 02/10/25 17:01 Magnesium Sulfate/H2o IV 02/10/25 16:22 Infused ONCE ONE Infusion Magnesium Sulfate 2 gm in 50 mls @ 25 mls/hr 02/10/25 16:04 02/10/25 18:14 Magnesium Sulfate/H2o IV 02/10/25 18:03 Infused ONCE ONE Infusion Potassium Chloride 40 meq 02/10/25 18:05 02/10/25 18:13 Potassium Chloride Er 20 Meq Tab.Er.Prt PO 02/10/25 18:06 40 meq ONCE ONE Administration Medical Decision Making Lab Data 02/10/25 15:39 02/10/25 19:17 Labs: Lab Results 02/10/25 02/10/25 Range/Units 15:39 19:17 WBC 11.5 H (4.8-10.8) X10*3/uL RBC 4.65 (4.20-5.50) X10*6/uL Hgb 12.5 (12.0-16.0) g/dl Hct 38.7 (37.0-47.0) % MCV 83.2 (80.0-98.0) fL MCH 26.9 L (27.0-33.0) pg MCHC 32.3 (31.0-35.0) g/dl RDW 14.3 (11.0-16.0) % Plt Count 338 (160-400) X10*3/uL MPV 10.7 (9.4-12.3) fL Immature Gran % (Auto) 0.3 (0.0-0.4) % Neut % (Auto) 71.6 (45-73) % Lymph % (Auto) 20.5 (20-40) % Williamson % (Auto) 7.2 (2-11) % Eos % (Auto) 0.1 (0-4) % Baso % (Auto) 0.3 (0-2) % Lymph # (Auto) 2.4 (1.2-4.9) X10*3/uL Williamson # (Auto) 0.8 (0.1-1.2) X10*3/uL Eos # (Auto) 0.0 (0.0-0.4) X10*3/uL Baso # (Auto) 0.0 (0.0-0.2) X10*3/uL Abs Immat Gran (auto) 0.03 (0.00-0.03) X10*3/uL Absolute Neuts (auto) 8.2 (2.0-8.3) x10*3/uL Absolute Nucleated RBC 0.000 (0.0-0.012) X10*3/uL Nucleated RBC % (auto) 0.0 (0.0-0.2) /100WBC PT 11.5 (10.9-12.4) SEC INR 1.0 (0.9-1.1) Sodium 145 145 (135-145) mmol/L Potassium 3.2 L 3.6 (3.3-5.1) mmol/L Chloride 108 106 (96-108) mmol/L Carbon Dioxide 28 30 H (22-29) mmol/L Anion Gap 12 13 (12-20) BUN 18 H 18 H (9-16) mg/dL Creatinine 1.08 1.09 (0.5-1.4) mg/dL Estim Creat Clear Calc 57.3 56.8 Estimated GFR 52 51 Random Glucose 109 109 (60-115) mg/dL Calcium 8.9 D 9.4 (8.4-10.2) mg/dL Magnesium 1.0 L* 2.6 (1.6-2.6) mg/dL Total Bilirubin 0.4 (0.0-1.0) mg/dL AST 22 (5-31) U/L ALT 32 H (0-31) U/L Alkaline Phosphatase 100 (39-117) U/L Troponin I High Sens < 2.7 (<3.5-17.0) ng/L NT-Pro-B Natriuret Pep 164.2 (<300) pg/mL Total Protein 7.1 (6.5-8.0) g/dL Albumin 4.2 (3.5-5.0) g/dL Discharge Plan Discharge Clinical Impression: Hypomagnesemia Patient Disposition: Home, Self-Care Instructions: Hypomagnesemia (ED) Prescriptions: No Action (DME) walker Misc See Rx Instructions .MEDSUPPLY Qty: 1 0RF Rx Instructions: Folding Front wheeled walker cholecalciferol (vitamin D3) 25 mcg (1,000 unit) tablet 25 mcg PO DAILY Qty: 90 3RF thiamine HCl (vitamin B1) 100 mg tablet 100 mg PO DAILY Qty: 90 3RF albuterol sulfate [Ventolin HFA] 90 mcg/actuation HFA aerosol inhaler 1 puff PO Q4-6H PRN (Reason: for wheezing) Qty: 18 0RF fluticasone propion-salmeterol [Advair Diskus] 250-50 mcg/dose blister with device 1 inh inhalation BID Qty: 60 0RF albuterol sulfate 2.5 mg /3 mL (0.083 %) solution for nebulization 2.5 mg inhalation Q4H PRN (Reason: shortness of breath or wheezing) Qty: 75 0RF citalopram 40 mg tablet 1 tab PO QAM hydroxyzine HCl 25 mg tablet 1 tab PO BEDTIME PRN (Reason: itch) docusate sodium 100 mg Capsule 100 mg PO BID 14 Days Qty: 28 0RF cyclobenzaprine 10 mg tablet 10 mg PO TID PRN (Reason: muscle spasm) Qty: 10 0RF magnesium oxide 400 mg magnesium capsule 400 mg PO DAILY Qty: 30 0RF Trulicity 1.5 mg/0.5 mL pen injector 1.5 mg subcut QWEEK zolpidem 10 mg tablet 10 mg PO BEDTIME PRN (Reason: Insomnia) lorazepam 0.5 mg tablet 0.5 mg PO BID PRN (Reason: Anxiety) furosemide 40 mg tablet 40 mg PO DAILY epinephrine 0.3 mg/0.3 mL auto-injector 0.3 mg IM Q10M PRN (Reason: Anaphylaxis) Rx Instructions: for 2 doses pantoprazole 40 mg tablet,delayed release (DR/EC) 40 mg PO DAILY montelukast 10 mg tablet 10 mg PO BEDTIME loratadine 10 mg capsule 10 mg PO DAILY fluticasone propionate [Flonase Allergy Relief] 50 mcg/actuation spray,suspension 1 spray intranasal DAILY Rx Instructions: administer into each nostril atorvastatin 40 mg tablet 40 mg PO BEDTIME (DME) lancets [Easy Touch Twist Lancets] 33 gauge misc See Rx Instructions .ROUTE BID Qty: 100 Rx Instructions: As directed (DME) FreeStyle Lite Strips Strip See Rx Instructions .ROUTE BID Qty: 10 Rx Instructions: As directed multivitamin with folic acid [Daily-Royal (with folic acid)] 400 mcg tablet 1 tab PO DAILY cyanocobalamin (vitamin B-12) [Vitamin B-12] 1,000 mcg tablet 1,000 mcg PO DAILY tramadol 50 mg tablet 50 mg PO BID PRN (Reason: severe pain) ipratropium bromide 21 mcg (0.03 %) spray,non-aerosol 1 - 2 spray intranasal DAILY PRN (Reason: Nasal Congestion) Referrals: Leelee Yanes MD [Primary Care Provider, Internal Medicine] - 02/12/25 Print Language: Anguillan
--- NOTE | 2025-02-10 15:15 | ECG_ITS ---
Test Reason : WEAKNESS Blood Pressure : */* mmHG Vent. Rate : 77 BPM Atrial Rate : 77 BPM P-R Int : 138 ms QRS Dur : 84 ms QT Int : 376 ms P-R-T Axes : 36 49 38 degrees QTcB Int : 425 ms Normal sinus rhythm Normal ECG When compared with ECG of 02-Sep-2024 16:17, No significant change was found Referred By: Zeina Leiva Electronically Signed By: Romulo Aguiar
--- NOTE | 2025-02-10 15:41 | PC.NURSE ---
Patient presents to ED c/o abnormal labs [facility] informed patient of her hypo magnesium and hypokalemia Patient had chest pain yesterday but it has since resolved. VSS and up to date Blood collected/sent Provider in to see patient Plan of care on going
[2025-02-10 15:46] LABS: MANUAL DIFF FLAG NO
[2025-02-10 15:51] LABS: Hematocrit 38.7 % (37.0-47.0); Hemoglobin 12.5 g/dl (12.0-16.0); Imm Gran Abs Auto 0.03 X10*3/uL (0.00-0.03); Imm Gran Pct Auto 0.3 % (0.0-0.4); Lymphocytes Absolute Auto 2.4 X10*3/uL (1.2-4.9); Mean Corpuscular HGB Conc 32.3 g/dl (31.0-35.0); Mean Corpuscular Hemoglobin 26.9 pg (27.0-33.0); Mean Corpuscular Volume 83.2 fL (80.0-98.0); NRBC Abs Auto 0.000 X10*3/uL (0.0-0.012); NRBC Pct Auto 0.0 /100WBC (0.0-0.2); Platelet Count 338 X10*3/uL (160-400); Red Blood Count 4.65 X10*6/uL (4.20-5.50); White Blood Count 11.5 X10*3/uL (4.8-10.8)
[2025-02-10 15:56] LABS: INTERNATIONAL NORM RATIO 1.0 (0.9-1.1); Prothrombin Time 11.5 SEC (10.9-12.4)
[2025-02-10 16:09] LABS: NT Pro B Type Natriuretic Pept 164.2 pg/mL (<300)
--- NOTE | 2025-02-10 16:10 | ED.RECABL ---
HPI - Recheck/Abnormal Lab/Rx General Chief Complaint: Recheck/Abnormal Lab/Rx Stated Complaint: abnormal labs Time Seen by Provider: 02/10/25 16:01 History of Present Illness HPI narrative: Patient is a 59-year-old female presents today with having low magnesium noted by PMD is lab. It was noted to be 1.1. Patient was sent to the ED for further evaluation there is no chest pain there is no shortness of breath there is no dizziness there is nonspecific tingling sensation to the right gluteal area. There is no issues with bowel urine. There is no difficulty with ambulation. There is no focal weakness. There is no numbness down the entire leg. Ambulates with a normal gait. Patient is on PPIs. SHe is also on loop diuretic is on 40 mg of Lasix on a daily basis Related Data Home Medications ?Medication ?Instructions ?Recorded ?Confirmed atorvastatin 40 mg tablet 40 mg PO BEDTIME 02/27/20 12/10/24 epinephrine 0.3 mg/0.3 mL 0.3 mg IM Q10M PRN Anaphylaxis 02/27/20 12/10/24 injection, auto-injector fluticasone propionate 50 1 spray intranasal DAILY 02/27/20 12/10/24 mcg/actuation nasal spray,suspension (Flonase Allergy Relief) furosemide 40 mg tablet 40 mg PO DAILY 02/27/20 12/10/24 loratadine 10 mg capsule 10 mg PO DAILY 02/27/20 12/10/24 lorazepam 0.5 mg tablet 0.5 mg PO BID PRN Anxiety 02/27/20 12/10/24 montelukast 10 mg tablet 10 mg PO BEDTIME 02/27/20 12/10/24 pantoprazole 40 mg tablet,delayed 40 mg PO DAILY 02/27/20 12/10/24 release zolpidem 10 mg tablet 10 mg PO BEDTIME PRN Insomnia 02/27/20 12/10/24 citalopram 40 mg tablet 1 tab PO QAM 11/05/20 12/10/24 hydroxyzine HCl 25 mg tablet 1 tab PO BEDTIME PRN itch 11/05/20 12/10/24 cyanocobalamin (vitamin B-12) 1,000 mcg PO DAILY 08/17/22 12/10/24 1,000 mcg tablet (Vitamin B-12) multivitamin with folic acid 400 1 tab PO DAILY 08/17/22 12/10/24 mcg tablet (Daily-Royal (with folic acid)) tramadol 50 mg tablet 50 mg PO BID PRN severe pain 12/14/22 12/10/24 blood sugar diagnostic (FreeStyle #10 ea 03/20/23 12/10/24 Lite Strips) lancets 33 gauge (Easy Touch Twist #100 ea 03/20/23 12/10/24 Lancets) ipratropium bromide 21 mcg (0.03 1 - 2 spray intranasal DAILY PRN 06/02/23 12/10/24 %) nasal spray Nasal Congestion dulaglutide 1.5 mg/0.5 mL 1.5 mg subcut QWEEK 11/13/24 12/10/24 subcutaneous [facility] Previous Rx's ?Medication ?Instructions ?Recorded albuterol sulfate 2.5 mg/3 mL 2.5 mg (3 mL) inhalation Q4H PRN 10/30/20 (0.083 %) solution for nebulization shortness of breath or wheezing #75 mL docusate sodium 100 mg capsule 100 mg PO BID 14 days #28 caps 09/22/22 walker #1 ea 09/23/22 cyclobenzaprine 10 mg tablet 10 mg PO TID PRN muscle spasm #10 01/30/23 tabs cholecalciferol (vitamin D3) 25 25 mcg PO DAILY #90 tabs 05/17/23 mcg (1,000 unit) tablet magnesium oxide 400 mg PO DAILY low magnesium #30 06/19/23 caps thiamine HCl (vitamin B1) 100 mg 100 mg PO DAILY #90 tabs 06/22/23 tablet albuterol sulfate 90 mcg/actuation 1 puff PO Q4-6H PRN for wheezing 08/04/23 aerosol inhaler (Ventolin HFA) #18 ea fluticasone 250 mcg-salmeterol 50 1 inh inhalation BID #60 ea 01/16/25 mcg/dose blistr powdr for inhalation (Advair Diskus) Allergies Allergy/AdvReac Type Severity Reaction Status Date / Time sulfamethoxazole (From Allergy Intermediate RASH Verified 02/10/25 15:18 Bactrim) Review of Systems Review of Systems: No fever no chills no chest pain or shortness breath no systemic complaints other than the numbness to the right gluteal area that is been ongoing for months Yes all other systems are reviewed and are negative [facility] Past Medical History Attestation statement: The following information was validated with the patient. Medical History Osteoarthritis of left knee Hypersomnolence Renal calculi Diabetes COVID-19 vaccine administered COPD (chronic obstructive pulmonary disease) Allergic rhinitis KAYLEE on CPAP Obesity (BMI 30-39.9) Obesity Axillary hidradenitis suppurativa GERD (gastroesophageal reflux disease) Asthma Arthritis Hypertension Hyperlipidemia Surgical History S/P total knee arthroplasty (09/20/22) History of carpal tunnel release Hx of knee surgery Hx of cystoscopy History of esophagogastroduodenoscopy (EGD) H/O colonoscopy Hx of total knee replacement History of salpingoophorectomy H/O lithotripsy H/O hemicolectomy H/O tubal ligation Hx of cholecystectomy S/P laparoscopic sleeve gastrectomy Family History Family History Mother No problems noted. Father No problems noted. Son No problems noted. Daughter No problems noted. Son No problems noted. Sister No problems noted. Sister No problems noted. Brother No problems noted. Brother No problems noted. Brother No problems noted. Brother No problems noted. Social History Social History Household Members: Children [facility] Are you a primary care services manager to a significant other at home: No Do you presently have visiting nurse or other home services: Yes ([employer]) Alcohol intake: never Patient Tobacco Use Status: Never used Tobacco Smoked in Last 30 Days: No Use of substances other than those prescribed or required for medical reasons: No Advance Directives: No Advance Directives Information Provided: No Advance Directives Date on File: 03/08/15 Do you have a plan to hurt others: No Plan Patient : No service: No Current occupational status: disabled 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 Oriented X3. No acute distress. Eyes: Pupils equal, round and reactive to light. ENT: Pharynx normal. Neck: Normal inspection. Neck supple. No lymph nodes noted. No crepitus CVS: Normal heart rate and rhythm. Pulses normal. Normal S1 and S2 Respiratory: No respiratory distress. Breath sounds normal. No Wheezing. No rales Abdomen: Soft and nontender. No rigidity. No distention. good BS x4 Skin: Skin warm and dry. Normal skin color. Normal skin turgor. Extremities: No lower extremity edema. Neurovascular intact to all extremities. No Lacerations. No Rash Neuro: Oriented X 3. No motor deficit. No sensory deficit. Moving all extermities. No slurred speech Vital Signs: Vital Signs: Last Vital Signs Temp 98.5 F 02/10/25 19:17 Pulse 68 02/10/25 19:17 Resp 13 02/10/25 19:17 BP 111/57 L 02/10/25 19:17 Pulse Ox 96 02/10/25 19:17 O2 Del Method Room Air 02/10/25 19:17 BMI result Body Mass Index 39.3 Medications Administered Discontinued Medications Generic Name Dose Route Start Last Admin Trade Name Freq PRN Reason Stop Dose Admin Magnesium Sulfate 2 gm in 50 mls @ 150 mls/hr 02/10/25 16:03 02/10/25 17:01 Magnesium Sulfate/H2o IV 02/10/25 16:22 Infused ONCE ONE Infusion Magnesium Sulfate 2 gm in 50 mls @ 25 mls/hr 02/10/25 16:04 02/10/25 18:14 Magnesium Sulfate/H2o IV 02/10/25 18:03 Infused ONCE ONE Infusion Potassium Chloride 40 meq 02/10/25 18:05 02/10/25 18:13 Potassium Chloride Er 20 Meq Tab.Er.Prt PO 02/10/25 18:06 40 meq ONCE ONE Administration Medical Decision Making Medical Decision Making MDM Narrative: Patient had a magnesium of 1.0. Question etiology question secondary to Lasix use question secondary to PPI use. Patient is on both is on 40 mg of Lasix daily. Is on 40 mg of pantoprazole daily. Repleted patient with 4 g of magnesium will recheck patient's magnesium level has nonspecific tingling to the leg patient's NIH stroke scale was 0. Well-appearing. Neurologically intact. Will recheck patient's electrolytes prior to discharge. No history for diarrhea. No history for alcohol use. I repleted patient's magnesium and also potassium. The K is now 3.6 the magnesium is now 2.6. In range for normal. Will discharge patient home close follow-up advised. Explained to patient patient needs to follow-up with primary physician about use of Lasix and use of PPIs. Namely pantoprazole. Currently in stable condition. Will discharge home. Patient has no diarrhea. No GI symptoms. No history of alcohol use. Differential Diagnosis Differential Diagnoses: The differential diagnosis associated with the presentation includes Hypomagnesemia secondary to PPI secondary to loop diuretic secondary to diarrhea secondary to alcohol use. Low potassium secondary to low magnesium Admission/Observation Consideration of admission/observation: Escalation of care including admission/observation considered Lab Data MDM Lab Attestation statement: I reviewed the patient's lab results. 02/10/25 15:39 02/10/25 19:17 Labs: Lab Results 02/10/25 02/10/25 Range/Units 15:39 19:17 WBC 11.5 H (4.8-10.8) X10*3/uL RBC 4.65 (4.20-5.50) X10*6/uL Hgb 12.5 (12.0-16.0) g/dl Hct 38.7 (37.0-47.0) % MCV 83.2 (80.0-98.0) fL MCH 26.9 L (27.0-33.0) pg MCHC 32.3 (31.0-35.0) g/dl RDW 14.3 (11.0-16.0) % Plt Count 338 (160-400) X10*3/uL MPV 10.7 (9.4-12.3) fL Immature Gran % (Auto) 0.3 (0.0-0.4) % Neut % (Auto) 71.6 (45-73) % Lymph % (Auto) 20.5 (20-40) % [place] % (Auto) 7.2 (2-11) % Eos % (Auto) 0.1 (0-4) % Baso % (Auto) 0.3 (0-2) % Lymph # (Auto) 2.4 (1.2-4.9) X10*3/uL [place] # (Auto) 0.8 (0.1-1.2) X10*3/uL Eos # (Auto) 0.0 (0.0-0.4) X10*3/uL Baso # (Auto) 0.0 (0.0-0.2) X10*3/uL Abs Immat Gran (auto) 0.03 (0.00-0.03) X10*3/uL Absolute Neuts (auto) 8.2 (2.0-8.3) x10*3/uL Absolute Nucleated RBC 0.000 (0.0-0.012) X10*3/uL Nucleated RBC % (auto) 0.0 (0.0-0.2) /100WBC PT 11.5 (10.9-12.4) SEC INR 1.0 (0.9-1.1) Sodium 145 145 (135-145) mmol/L Potassium 3.2 L 3.6 (3.3-5.1) mmol/L Chloride 108 106 (96-108) mmol/L Carbon Dioxide 28 30 H (22-29) mmol/L Anion Gap 12 13 (12-20) BUN 18 H 18 H (9-16) mg/dL Creatinine 1.08 1.09 (0.5-1.4) mg/dL Estim Creat Clear Calc 57.3 56.8 Estimated GFR 52 51 Random Glucose 109 109 (60-115) mg/dL Calcium 8.9 D 9.4 (8.4-10.2) mg/dL Magnesium 1.0 L* 2.6 (1.6-2.6) mg/dL Total Bilirubin 0.4 (0.0-1.0) mg/dL AST 22 (5-31) U/L ALT 32 H (0-31) U/L Alkaline Phosphatase 100 (39-117) U/L Troponin I High Sens < 2.7 (<3.5-17.0) ng/L NT-Pro-B Natriuret Pep 164.2 (<300) pg/mL Total Protein 7.1 (6.5-8.0) g/dL Albumin 4.2 (3.5-5.0) g/dL Independent Interpretation I performed an independent interpretation of an: EKG (Sinus heart rate is 75 ID QRS QTC within normal limits there is no acute ST segment elevation.) Radiology Impression Discussion of test interpretation with radiology: I have reviewed the radiologist's reading. External Record Review External record reviewed: Inpatient record Chronic Conditions History of being on loop diuretics for hypertension. History of being on PPIs Social Determinants Patient?s care significantly limited by Social Determinants of Health including: Problems related to primary support group Discharge Plan Discharge Clinical Impression: Hypomagnesemia Patient Disposition: Home, Self-Care Instructions: Hypomagnesemia (ED) Prescriptions: No Action (DME) walker Misc See Rx Instructions .MEDSUPPLY Qty: 1 0RF Rx Instructions: Folding Front wheeled walker cholecalciferol (vitamin D3) 25 mcg (1,000 unit) tablet 25 mcg PO DAILY Qty: 90 3RF thiamine HCl (vitamin B1) 100 mg tablet 100 mg PO DAILY Qty: 90 3RF albuterol sulfate [Ventolin HFA] 90 mcg/actuation HFA aerosol inhaler 1 puff PO Q4-6H PRN (Reason: for wheezing) Qty: 18 0RF fluticasone propion-salmeterol [Advair Diskus] 250-50 mcg/dose blister with device 1 inh inhalation BID Qty: 60 0RF albuterol sulfate 2.5 mg /3 mL (0.083 %) solution for nebulization 2.5 mg inhalation Q4H PRN (Reason: shortness of breath or wheezing) Qty: 75 0RF citalopram 40 mg tablet 1 tab PO QAM hydroxyzine HCl 25 mg tablet 1 tab PO BEDTIME PRN (Reason: itch) docusate sodium 100 mg Capsule 100 mg PO BID 14 Days Qty: 28 0RF cyclobenzaprine 10 mg tablet 10 mg PO TID PRN (Reason: muscle spasm) Qty: 10 0RF magnesium oxide 400 mg magnesium capsule 400 mg PO DAILY Qty: 30 0RF Trulicity 1.5 mg/0.5 mL pen injector 1.5 mg subcut QWEEK zolpidem 10 mg tablet 10 mg PO BEDTIME PRN (Reason: Insomnia) lorazepam 0.5 mg tablet 0.5 mg PO BID PRN (Reason: Anxiety) furosemide 40 mg tablet 40 mg PO DAILY epinephrine 0.3 mg/0.3 mL auto-injector 0.3 mg IM Q10M PRN (Reason: Anaphylaxis) Rx Instructions: for 2 doses pantoprazole 40 mg tablet,delayed release (DR/EC) 40 mg PO DAILY montelukast 10 mg tablet 10 mg PO BEDTIME loratadine 10 mg capsule 10 mg PO DAILY fluticasone propionate [Flonase Allergy Relief] 50 mcg/actuation spray,suspension 1 spray intranasal DAILY Rx Instructions: administer into each nostril atorvastatin 40 mg tablet 40 mg PO BEDTIME (DME) lancets [Easy Touch Twist Lancets] 33 gauge misc See Rx Instructions .ROUTE BID Qty: 100 Rx Instructions: As directed (DME) FreeStyle Lite Strips Strip See Rx Instructions .ROUTE BID Qty: 10 Rx Instructions: As directed multivitamin with folic acid [Daily-Royal (with folic acid)] 400 mcg tablet 1 tab PO DAILY cyanocobalamin (vitamin B-12) [Vitamin B-12] 1,000 mcg tablet 1,000 mcg PO DAILY tramadol 50 mg tablet 50 mg PO BID PRN (Reason: severe pain) ipratropium bromide 21 mcg (0.03 %) spray,non-aerosol 1 - 2 spray intranasal DAILY PRN (Reason: Nasal Congestion) Referrals: Leelee Yanes MD [Primary Care Provider, Internal Medicine] - 02/12/25 Print Language: Mongolian
[2025-02-10 16:11] LABS: Troponin-I High Sensitivity < 2.7 ng/L (<3.5-17.0)
[2025-02-10 16:13] LABS: Alanine Aminotransferase 32 U/L (0-31); Albumin Level 4.2 g/dL (3.5-5.0); Alkaline Phosphatase 100 U/L (39-117); Anion Gap 12 (12-20); Aspartate Amino Transferase 22 U/L (5-31); Blood Urea Nitrogen 18 mg/dL (9-16); Calcium 8.9 mg/dL (8.4-10.2); Carbon Dioxide 28 mmol/L (22-29); Chloride 108 mmol/L (96-108); Creatinine Clr Calc Pharmacy 57.3; Estimated Glomerular Filt Rate 52; Magnesium 1.0 mg/dL (1.6-2.6); Potassium 3.2 mmol/L (3.3-5.1); Sodium 145 mmol/L (135-145); Total Protein 7.1 g/dL (6.5-8.0)
[2025-02-10] MEDS: Magnesium Sulfate/H2O 2 GM/50 ML PIGGYBACK IV ×2 (16:23)
[2025-02-10] MEDS: Potassium Chloride ER 20 MEQ TAB.ER.PRT 40 MEQ PO (18:13)
[2025-02-10 19:35] LABS: Anion Gap 13 (12-20); Blood Urea Nitrogen 18 mg/dL (9-16); Calcium 9.4 mg/dL (8.4-10.2); Carbon Dioxide 30 mmol/L (22-29); Chloride 106 mmol/L (96-108); Creatinine Clr Calc Pharmacy 56.8; Estimated Glomerular Filt Rate 51; Magnesium 2.6 mg/dL (1.6-2.6); Potassium 3.6 mmol/L (3.3-5.1); Sodium 145 mmol/L (135-145)
== END 2025-02-10 20:30 | disposition home or self-care (01) ==
PROVIDERS: Physician Assistant Medical; Emergency Provider Emergency Medicine Emergency Medical Services; PCP Internal Medicine
DX: E83.42 Hypomagnesemia (principal); I10 Essential (primary) hypertension; E11.9 Type 2 diabetes mellitus without complications; E66.9 Obesity, unspecified; Z68.39 Body mass index [BMI] 39.0-39.9, adult; J45.909 Unspecified asthma, uncomplicated; Z79.899 Other long term (current) drug therapy
CPT/HCPCS: 36415; 71046; 80048; 80053; 83735; 83880; 84484; 85025; 85610; 93005; 96365; 96366; 99284; 99285; J3475

== ENCOUNTER → 2025-02-10 15:15 | Outpatient (BNV) | payer MEDICAID, SELFPAY | PROVIDERS: Emergency Provider Emergency Medicine Emergency Medical Services; PCP Internal Medicine; Visit Provider Internal Medicine Cardiovascular Disease | DX: R53.1 Weakness (principal) | CPT/HCPCS: 93010 ==

== ENCOUNTER → 2025-02-10 15:17 | Outpatient (BNV) | payer MEDICAID, SELFPAY | PROVIDERS: Emergency Provider Emergency Medicine Emergency Medical Services; PCP Internal Medicine; Visit Provider Radiology Diagnostic Radiology | DX: R07.9 Chest pain, unspecified (principal) | CPT/HCPCS: 71046 ==

== ENCOUNTER 2025-02-17 11:19 | Outpatient (REF) | payer MEDICAID, SELFPAY ==
--- OUTSIDE RECORDS SUMMARY | 2024-11-15 07:00 | XMS_ITS ---
Author Organization [facility] Address [address] [place] [address] Care Team Providers Care Warehouse Associate Driver Name Role Phone Farzana KELLY, Leelee Primary Care Provider Unavail Shay Ashraf [phone] REASON FOR VISIT gerd, dysphagia, screening Encounters Encounter Location Date Provider Diagnosis [facility] [place] [address] [facility] [place] [id number] 11/15/2024 Shay Araya Plan Of Treatment No Information Progress Notes * ERWIN HARRIS NDOB:1965 (59 yo F)Acc No.[id number]:11/15/2024 EGD and COL/MAC Patient: ERWIN TATE Provider: Diana Araya MD :1965 A ge:59 Y S ex:Female Date:11/15/2024 Address:[address] [id number] Pcp:Leelee Yanes MD Subjective: * Chief Complaints: [...] MD Date: 0 11/15/2024 Generated for Margyi ng/Faxing/eTransmitting on: 1 09:10 AM EDT
[2025-02-17 13:28] LABS: Magnesium 1.5 mg/dL (1.6-2.6); Potassium 3.7 mmol/L (3.3-5.1)
--- OUTSIDE RECORDS SUMMARY | 2025-02-17 13:58 | XMS_ITS | Encounter Summary ---
Author Organization [employer] Address [address] [place] [address] [address] [place] [address] Care Team Providers Care Servicer Travel Trailers Name Role Phone Leelee Yanes MD Primary Care Provider + Reason for Visit * Reason Comments Med Refill Encounter Details Date Type Department Care Team (Late Contact Info) Description 07/12/2022 Refill [facility] MEDICINE [address] [place] [address] [phone] Name, MD Charles [address] [place] [phone] Acute bilateral low back pain, unspecified whether [...] Description 06/02/2025 1:00 PM EST Clinical Support [facility] MEDICINE [address] [place] [phone] Yoana Perry RN documented as of this encounter Visit Diagnoses Diagnosis Acute bilateral low back pain, unspecified whether sciatica present documented in this encounter Care Teams Servicer Travel Trailers Relationship Specialty Start Date End Date Leelee Yanes MD [address] [place] [phone] PCP - General Family Medicine 06/11/20 documented as of this encounter
--- OUTSIDE RECORDS SUMMARY | 2025-02-17 13:58 | XMS_ITS | Encounter Summary ---
Author Organization [facility] Address [address] [place] [address] [address] [place] [address] Care Team Providers Care Chief Orthoptist Name Role Phone Leelee Yanes MD Primary Care Provider + Reason for Visit * Reason Comments Med Refill Encounter Details Date Type Department Care Team ([facility] Contact Info) Description 05/24/2022 Refill [facility] MEDICINE [address] [place] [phone] Leelee Yanes MD [address] [place] [phone] Acute bilateral low back pain, unspecified whether [...] 1:00 PM EST Clinical Support [facility] MEDICINE [address] [place] [phone] Yoana Perry RN documented as of this encounter Visit Diagnoses Diagnosis Acute bilateral low back pain, unspecified whether sciatica present documented in this encounter Care Teams Chief Orthoptist Relationship Specialty Start Date End Date Leelee Yanes MD [address] [place] [address] [phone] PCP - General Family Medicine 06/11/20 documented as of this encounter
--- OUTSIDE RECORDS SUMMARY | 2025-02-17 13:58 | XMS_ITS | Clinical Summary ---
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 TAKE 1 TABLET [...] VIA [place]AL [place] 90 tablet 3 Active loratadine (Claritin) 10 MG tabletIndication s:Seasonal allergies TAKE 1 TABLET BY MOUTH EVERY DAY 90 tablet 025 Active Trulicity 1.5 MG/0.5ML solution auto-injector INJECT ONE PEN (=1.5MG) SUBCUTANEOUSLY ONCE A WEEK DIRECTED 2 mL 3 025 Active Ketotifen Fumarate 0.035 % solution PONGA TAYLOR GOTA EN NICOLE AFECTADO DOS VECES AL JOSÉ LUIS 5 mL 1 025 Active nystatin (Mycostatin) 798472 UNIT/GM powder USE ON AFFECTED AREA(S) TWICE DAILY DIRECTED Active clotrimazole (Lotrimin) 1 % cream Apply topically 2 times daily for 28 days. 30 g 5 025 2024 Active cyanocobalamin (Vitamin B-12) 1000 MCG tablet Take 1 tablet (1,000 mcg) by mouth Once per day. 90 tablet 3 Active Multiple Vitamin (Daily-Royal Multivitamin) tablet TAKE 1 TABLET BY MOUTH WITH FOOD 90 tablet 3 Active traMADol (Ultram) 50 MG tabletIndication s:Lumbar radiculopathy,Pr imary osteoarthritis of left knee,Acute bilateral low back pain, unspecified whether sciatica present Take 1 tablet (50 mg) by mouth every 12 (twelve) hours if needed for severe pain for up to 28 days. Do not start before January 30, 2025. 56 tablet 025 2024 Active Acetaminophen Extra Strength 500 MG tablet TAKE 1 TABLET BY MOUTH EVERY 8 HOURS IF NEEDED. 90 tablet 025 Active traMADol (Ultram) 50 MG tabletIndication [...] eorder (will not trigger notification to Pharmacy)) Acetaminophen Extra Strength 500 MG tablet TAKE 1 TABLET BY MOUTH EVERY 8 HOURS IF NEEDED. 90 tablet 025 2024 Discontinued magnesium oxide (Mag-Ox) 400 (240 Mg) MG [...] Indication: lumbar radiculopathy, OA bilat knees Last REFRIGERATION TECHNICIAN Agreement: 05/10/23 Assessment & Plan (02/20/2024 8:11 PM EDT): -Today was first group, she will decide if group setting or individual visit with RN is preferred. Scheduled for REFRIGERATION TECHNICIAN group 03/12/24 as requested. -Encouraged multifactorial approach [...] for Utox today, she will fu with REFRIGERATION TECHNICIAN nurse, she's aware that she should be [...] has changed from most recent one (see REFRIGERATION TECHNICIAN nurse note). Next refill will be due [...] replaced if lost or stolen. FU with REFRIGERATION TECHNICIAN nurse as scheduled Assessment & Plan (06/24/2022 1:08 PM EST): Continue weight reduction, tylenol 1000mg BID and 500mg tramadol qhs FU with orthopedics recommended use of cane for ambulation counseled regarding compliance with REFRIGERATION TECHNICIAN appointments, utox ordered today was negative pharmaco education regarding opiate use including proper storage, prohibited sharing medications with others, avoid alcohol or other recreational substances counseled to FU closely with REFRIGERATION TECHNICIAN provider. Type 2 diabetes mellitus without complication [...] Encounters Date Type Department Care Team Description 02/17/2025 Telephone [facility] [address] [place] [address] Leelee Yanes MD pre op 02/11/2025 Telephone [facility] [address] [place] [address] Leelee Yanes MD telephone call 02/11/2025 Results Follow-Up [facility] [place] [address] Leelee Yanes MD CBC auto differential, Prothrombin Time-INR, NT-proBNP, Additional followed-up results: 5 02/10/2025 Orders Only GENERIC EXTERNAL DATA DEPARTMENT Provider, Generic External Data 02/10/2025 Telephone [facility] [place] [address] Leelee Yanes MD 02/08/2025 Refill [facility] [place] [address] [facility] 02/03/2025 2:00 PM EDT Clinical Support [facility] [place] [address] Yoana Perry RN Long-term current use of opiate analgesic (Primary Dx) 02/03/2025 Travel 01/24/2025 Refill [facility] [place] [address] Leelee Yanes MD Lumbar radiculopathy; Primary osteoarthritis of left knee; Acute bilateral low back pain, unspecified whether sciatica present 01/23/2025 2:45 PM EDT Office Visit [facility] [place] [address] Leelee Yanes MD Type 2 diabetes mellitus without complication, unspecified whether senior care insulin use (CMS/HCC) (Primary Dx); Class 2 severe obesity due to excess calories with serious comorbidity and body mass index (BMI) of 39.0 to 39.9 in adult (CMS/HCC); Dysphonia; Hiatal hernia; Chronic vaginitis; Morbid obesity (CMS/HCC); Dietary counseling; Exercise counseling 01/23/2025 Orders Only [facility] [place] [address] Leelee Yanes MD 01/23/2025 Travel 01/23/2025 Results Follow-Up [facility] [place] [address] Leelee Yanes MD Basic Metabolic Panel, Magnesium, Phosphate (As Phosphorus), Additional followed-up results: 5 01/23/2025 Telephone [facility]EDIATR[facility] [address] [place] [address] Leelee Yanes MD CRITICAL LAB 01/22/2025 Telephone [facility] [address] [place] [phone] Leelee Yanes MD chart prep 01/22/2025 Telephone [facility] [address] [place] [phone] Leelee Yanes MD 01/22/2025 Refill [facility] [address] [place] [phone] Leelee Yanes MD Lumbar radiculopathy; Primary osteoarthritis of left knee; Acute bilateral low back pain, unspecified whether sciatica present 01/20/2025 Orders Only [facility] External Provider, [facility] 01/17/2025 3:00 PM EDT Office Visit [facility] [address] [place] [address] SanchezKarly oneal, OD Diabetes type 2, no ocular involvement (CMS/HCC) (Primary Dx); Dry eye syndrome of both eyes; Age-related nuclear cataract of both eyes; Presbyopia of both eyes 01/17/2025 Travel 01/15/2025 Patient Outreach [facility] [address] [place] [phone] Leelee Yanes MD Pre-visit Planning (SDOH screening negative and tobacco screening negative) 01/08/2025 Refill [facility] [address] [place] [phone] Yulia Perez MD 01/01/2025 Refill [facility] [address] [place] [address] Leelee Yanes MD 12/31/2024 Refill [facility] [address] [place] [address] Leelee Yanes MD Lumbar radiculopathy; Primary osteoarthritis of left knee; Acute bilateral low back pain, unspecified whether sciatica present 12/18/2024 Refill [facility] [address] [place] [address] Marbella Carlin DO 12/16/2024 Refill [facility] [address] [place] [address] Leelee Yanes MD 12/10/2024 Refill [facility] [address] [place] [address] Marbella Carlin DO Seasonal allergies 12/10/2024 Refill [facility] [address] [place] [address] Leelee Yanes MD Seasonal allergies 12/04/2024 Refill [facility] [address] [place] [address] Leelee Yaens MD 12/03/2024 Refill [facility] [address] [place] [address] Leelee Yanes MD Lumbar radiculopathy; Primary osteoarthritis of left knee; Acute bilateral low back pain, unspecified whether sciatica present 12/03/2024 Refill [facility] [address] [place] [address] Marbella Carlin DO Lumbar radiculopathy; Primary osteoarthritis of left knee; Acute bilateral low back pain, unspecified whether sciatica present from Last 3 Months Immunizations Immunization Administration [...] the past 12 months, has t he [employer], gas, oil or water company threatened to [...] Description 06/02/2025 1:00 PM EST Clinical Support [facility] [address] [place] [phone] Yoana Perry, RN Health Maintenance Due Date [...] 06/25/2020, Additional history exists COVID-19 Vaccine ( - season) 2024 02/16/2021, 08/03/2020, 07/13/2020 Influenza Vaccine (#1) 2024 , 05/10/2021, 01/27/2020, Additional history exists Mammogram 05/03/2025 [...] Procedure Name Priority Date/Time Associated Diagnosis Comments POTASSIUM Routine 02/17/2025 11:30 AM EDT Hypomagnesemia MAGNESIUM Routine 02/17/2025 11:30 AM EDT Hypomagnesemia MAGNESIUM Routine 02/10/2025 7:17 PM EDT BASIC METABOLIC PANEL Routine 02/10/2025 7:17 PM EDT XR CHEST 2 VIEWS Routine 02/10/2025 4:22 PM EDT MAGNESIUM Routine 02/10/2025 3:39 PM EDT COMPREHENSIVE METABOLIC PANEL Routine 02/10/2025 3:39 PM EDT HIGH SENSITIVITY TROPONIN I Routine 02/10/2025 3:39 PM EDT NT-PROBNP Routine 02/10/2025 3:39 PM EDT PROTHROMBIN TIME-INR Routine 02/10/2025 3:39 PM EDT CBC WITH AUTO DIFFERENTIAL Routine 02/10/2025 3:39 PM EDT MAGNESIUM Routine 02/10/2025 10:40 AM EDT Hypomagnesemia POTASSIUM Routine 02/10/2025 10:40 AM EDT Hypokalemia POCT ZACHARY-14 URINE DRUG SCREEN Routine 02/03/2025 2:06 PM EDT Long-term current use of opiate analgesic BACTERIAL VAGINOSIS PANEL Routine 01/23/2025 4:18 PM EDT CHLAMYDIA/N. GONORRHOEAE RNA, TMA, UROGENITAL Routine 01/23/2025 4:18 PM EDT Chronic vaginitis POCT GLYCATED HEMOGLOBIN, TOTAL Routine 01/23/2025 3:25 PM EDT Type 2 diabetes mellitus without complication, unspecified whether joint terminal attack controller insulin use ([facility]) POCT GLUCOSE Routine 01/23/2025 3:07 PM EDT Type 2 diabetes mellitus without complication, unspecified whether joint terminal attack controller insulin use ([facility]) VITAMIN B12/FOLATE, SERUM PANEL Routine 01/23/2025 10:46 [...] complication, without long-term current use of insulin ([facility]) Long toenail HM COLONOSCOPY Routine 11/15/2024 BI MAMMOGRAM SCREENING TOMOSYNTHESIS BILATERAL Routine 05/03/2024 10:15 AM EST ALBUMIN, RANDOM URINE W/CREATININE Routine 05/18/2023 8:57 AM EST LIPID PANEL WITH REFLEX TO DIRECT LDL Routine 05/18/2023 8:51 AM EST Essential hypertension from Last 3 Months or Most Recently Relevant to Health Maintenance Results * Potassium (02/17/2025 11:30 AM EDT) Only the most recent of2 resultswithin the time period is included. Potassium 3.7 3.3 - 5.1 mmol/L [facility] Blood Venous blood specimen / Unknown 02/17/2025 11:30 AM EDT 02/17/2025 12:59 PM EDT Leelee Yanes MD LAB BLOOD ORDERABLES Fin al Result Performing Organization Address City/[facility]/ZIP Co de Phone Number [facility] [address] [place] [phone] * (ABNORMAL) Magnesium (02/17/2025 11:30 AM EDT) Only the most recent of5 resultswithin the time period is included. Magnesium 1.5(L) 1.6 - 2.6 mg/dL [facility] Blood Venous blood specimen / Unknown 02/17/2025 11:30 AM EDT 02/17/2025 12:59 PM EDT Leelee Yanes MD LAB BLOOD ORDERABLES Fin al Result Performing Organization Address [facility] de Phone Number [facility] [address] [place] [phone] * (ABNORMAL) Basic Metabolic Panel (02/10/2025 7:17 PM EDT) Only the most recent of2 resultswithin the time period is included. Sodium 145 135 - 145 mmol/L [facility] Potassium 3.6 3.3 - 5.1 mmol/L [facility] Chloride 106 96 - 108 mmol/L [facility] Carbon Dioxide 30(H) 22 - 29 mmol/L [facility] Anion Gap 13 12 - 20 [facility] Urea Nitrogen (BUN) 18(H) 9 - 16 mg/dL [facility] Creatinine, Serum 1.09 0.5 - 1.4 mg/dL [facility] Creatinine Clr Calc Pharmacy 56.8 [facility] Comment:Provided height and weight: 154.94 cm,94.3 kg.eGFR (calculated from the MDRD study equation) and eCrCl(calculated from the Cockcroft-Gault equation) are based ondifferent parameters and may not yield comparable results.If eCrCl result is absurd, please check patient'sheight/weight. Estimated Glomerular Filt Rate 51 [facility] Comment:Chronic Kidney Disea se: Estimated GFR < 60 mL/min/1.42c4Xzbkmm Kidney Disease: Estimated GFR < 15 mL/min/1.73m2 Glucose 109 60 - 115 mg/dL [facility] Calcium 9.4 8.4 - 10.2 mg/dL [facility] 02/10/2025 7:17 PM EDT 02/10/2025 7:21 PM EDT us Generic External Data Provider LAB BLOOD ORDERAB LES Final Result Performing Organization Address City/State/[facility] Co de Phone Number [facility] [address] [place] [phone] * XR Chest 2 Views (02/10/2025 4:22 PM EDT) Anatomical Region Laterality Modality Chest Radiographic Kim ging 02/10/2025 4:22 PM EDT Narrative 02/10/2025 4:23 PM EDT [address] [address] XRay Report Signed Patient: Ann-Marie Flores MR#: [id number] 6 : 1965 Acct:[id number] Age/Sex: 59 / F ADM Date: 02/10/25 Loc: .ED Attending Dr: Ordering Physician: Zeina Leiva Date of Service: 02/10/25 Procedure(s): XR chest 2V Accession Number(s): [id number] cc: Leelee Yanes MD; Zeina Leiva Reason for Exam: chest pain CLINICAL HISTORY: chest pain 2 view chest x-ray Comparison: CR/SR - XR CHEST 1 VIEW - 09/02/24 16:12 EDT Findings: No consolidation or effusion. Heart size is normal. No acute fracture. IMPRESSION: 1. No acute findings. This document has been electronically signed by: Saige Morocho MD on 02/10/2025 16:22:16 Dictated By: Saige Morocho MD Signed By: <Electronically signed by Saige Morocho MD in OV> 02/10/251622 DD/ 21 TD/TT: 02/10/251621 Mat Puncher: Procedure Note Donotuseinterpreter, Image - 02/10/2025 [place] [address] XRay Report Signed Patient: Ann-Marie Flores [facility]#: [id number] 6 : 1965Acct:[id number] Age/Sex: 59 / FADM Date: 02/10/25 Loc: .ED Attending Dr: Ordering Physician: Zeina Leiva Date of Service: 02/10/25 Procedure(s): XR chest 2V Accession Number(s): [id number] cc: Leelee Yanes MD; Zeina Leiva Reason for Exam: chest pain CLINICAL HISTORY: chest pain 2 view chest x-ray Comparison: CR/SR - XR CHEST 1 VIEW - 09/02/24 16:12 EDT Findings: No consolidation or effusion. Heart size is normal. No acute fracture. IMPRESSION: 1. No acute findings. This document has been electronically signed by: Saige Morocho MD on 02/10/2025 16:22:16 Dictated By: Saige Morocho MD Signed By: <Electronically signed by Saige Morocho MD in OV> 02/10/251622 DD/ 21 TD/TT: 02/10/251621 Mat Puncher: [facility] External Provider IMG XR PROCEDURES Edited Result - Final * High Sensitivity Troponin I (02/10/2025 3:39 PM EDT) TROPONIN I HIGH SENSITIVITY <2.7 <3.5 - 17.0 ng/L [facility] Comment:The Coffman high sens itivity Troponin-I results should beused in conjunction with other diagnostic information suchas ECG, clinical observations and information, and patientsymptoms to aid in the diagnosis of MS. 02/10/2025 3:39 PM EDT 02/10/2025 3:45 PM EDT Generic External Data Provider LAB BLOOD ORDERAB LES Final Result Performing Organization Address [facility] Co de Phone Number [facility] [address] [place] [phone] * NT-proBNP (02/10/2025 3:39 PM EDT) Pathologist [facility] NT-proBNP 164.2 <300 pg/mL [facility] Comment:Reference Range:Age Group (years) NT-proBNP (pg/ml) InterpretationAll <300 Negative: HF unlikelyFor patients presenting to the ED with clinical suspicion ofnew onset or worsening HF, see below:18 to <50 >299.9 to <450.0 Grayzone: [id number] to 75 >299.9 to <900.0 other causes of>75 >299.9 to <1800.0 NT-proBNP [id number] to <50 >449.9 Positive: HF -99 >899.9>75 >1799.9Note: Elevated NT-proBNP levels should be interpreted inthe context of other clinical information. 02/10/2025 3:39 PM EDT 02/10/2025 3:45 PM EDT Generic External Data Provider LAB BLOOD ORDERAB LES Final Result Performing Organization Address [facility]/ZIP Co de Phone Number [facility] [address] [place] [phone] * (ABNORMAL) CBC auto differential (02/10/2025 3:39 PM EDT) White Blood Count 11.5(H) 4.8 - 10.8 X10*3/uL [facility] Red Blood Count 4.65 4.20 - 5.50 X10*6/uL [facility] Hemoglobin 12.5 12.0 - 16.0 g/dl [facility] Hematocrit 38.7 37.0 - 47.0 % [facility] Mean Corpuscular Volume 83.2 80.0 - 98.0 fL [facility] Mean Corpuscular Hemoglobin 26.9(L) 27.0 - 33.0 pg [facility] Mean Corpuscular HGB Conc 32.3 31.0 - 35.0 g/dl [facility] Red Cell Distribution Width 14.3 11.0 - 16.0 % [facility] Platelet Count 338 160 - 400 X10*3/uL [facility] Mean Platelet Volume 10.7 9.4 - 12.3 fL [facility] Neutrophils Percent Auto 71.6 45 - 73 % [facility] Imm Gran Pct Auto 0.3 0.0 - 0.4 % [facility] Lymphocytes Percent Auto 20.5 20 - 40 % [facility] Monocytes Percent Auto 7.2 2 - 11 % [facility] Eosinophils Percent Auto 0.1 0 - 4 % [facility] Basophils Percent Auto 0.3 0 - 2 % [facility] NRBC Pct Auto 0.0 0.0 - 0.2 /100WBC [facility] Neutrophils Absolute Auto 8.2 2.0 - 8.3 x10*3/uL [facility] Imm Gran Abs Auto 0.03 0.00 - 0.03 X10*3/uL [facility] Lymphocytes Absolute Auto 2.4 1.2 - 4.9 X10*3/uL [facility] Monocytes Absolute Auto 0.8 0.1 - 1.2 X10*3/uL [facility] Eosinophils Absolute Auto 0.0 0.0 - 0.4 X10*3/uL [facility] Basophils Absolute Auto 0.0 0.0 - 0.2 X10*3/uL [facility] NRBC Abs Auto 0.000 0.0 - 0.012 X10*3/uL [facility] 02/10/2025 3:39 PM EDT 02/10/2025 3:45 PM EDT us Generic External Data Provider LAB BLOOD ORDERAB LES Final Result Performing Organization Address [facility]/ZIP Co de Phone Number [facility] [address] [place] [phone] * Prothrombin Time-INR (02/10/2025 3:39 PM EDT) Prothrombin Time 11.5 10.9 - 12.4 SEC [facility] INTERNATIONAL NORM RATIO 1.0 0.9 - 1.1 [facility] Comment:INTERNATIONAL NORMAL IZED RATIO (INR) REFERENCE RANGES Reference RangeFor patients not on anticoagulant therapy: 0.9 - 1.1INR ranges for oral anticoagulanttherapy:For prevention and treatment of venous thrombosis and pulmonary embolism: 2.0 - 3.0For acute myocardial infarction with aspirin therapy: 2.0 - 3.0For acute myocardial infarction without aspirin therapy: 3.0 - 4.0For patients with mechanical prosthetic heart valves: 2.5 - 3.5 02/10/2025 3:39 PM EDT 02/10/2025 3:45 PM EDT Generic External Data Provider LAB BLOOD ORDERAB LES Final Result Performing Organization Address [facility] Co de Phone Number [facility] [address] [place] [phone] * (ABNORMAL) Comprehensive Metabolic Panel (02/10/2025 3:39 PM EDT) Pathologist [facility] Sodium 145 135 - 145 mmol/L [facility] Potassium 3.2(L) 3.3 - 5.1 mmol/L [facility] Chloride 108 96 - 108 mmol/L [facility] Carbon Dioxide 28 22 - 29 mmol/L [facility] Anion Gap 12 12 - 20 [facility] Urea Nitrogen (BUN) 18(H) 9 - 16 mg/dL [facility] Creatinine, Serum 1.08 0.5 - 1.4 mg/dL [facility] Creatinine Clr Calc Pharmacy 57.3 [facility] Comment:Provided height and weight: 154.94 cm,94.3 kg.eGFR (calculated from the MDRD study equation) and eCrCl(calculated from the Cockcroft-Gault equation) are based ondifferent parameters and may not yield comparable results.If eCrCl result is absurd, please check patient'sheight/weight. Estimated Glomerular Filt Rate 52 [facility] Comment:Chronic Kidney Disea se: Estimated GFR < 60 mL/min/1.73p5Akpcbj Kidney Disease: Estimated GFR < 15 mL/min/1.73m2 Glucose 109 60 - 115 mg/dL [facility] Calcium 8.9 8.4 - 10.2 mg/dL [facility] Bilirubin, Total 0.4 0.0 - 1.0 mg/dL [facility] Aspartate Amino Transferase 22 5 - 31 U/L [facility] Alanine Aminotransferase 32(H) 0 - 31 U/L [facility] Total Protein 7.1 6.5 - 8.0 g/dL [facility] Albumin Level 4.2 3.5 - 5.0 g/dL [facility] Alkaline Phosphatase 100 39 - 117 U/L [facility] 02/10/2025 3:39 PM EDT 02/10/2025 3:45 PM EDT us Generic External Data Provider LAB BLOOD ORDERAB LES Final Result [facility] [address] [place] [phone] * (ABNORMAL) POCT ZACHARY-14 Urine Drug Screen [...] procedure / Unknown 02/03/2025 2:06 PM EDT Narrative Yoana Perry RN - 02/03/2025 2:06 PM EDT UTOX cup Lot#[id number] Exp. 02/04/26 Internal Pass Control Leelee Yanes MD POINT OF CARE TEST ENTER /EDIT ORDERABLES Final Result * Bacterial Vaginosis (01/23/2025 4:18 PM EDT) TRICHOMONAS VAGINALIS DETECTION BY PCR NOT DETECTED Not Detect [facility] BACTERIAL VAGINOSIS DETECTION BY PCR NEGATIVE Negative [facility] Comment:The BV organism targ ets of [...] DETECTION BY PCR NOT DETECTED Not Detect [facility] Chula glab krusei PCR NOT DETECTED Not Detect [facility] 01/23/2025 4:18 PM EDT 01/24/2025 12:19 PM EDT us Leelee Yanes MD LAB MICROBIOLOGY - GENER AL ORDERABLES Final Result [facility] [address] [place] [address] [phone] * Chlamydia/N. Gonorrhoeae RNA, TMA, Urogenitial (01/23/2025 4:18 PM EDT) CT PCR NOT DETECTED Not Detect. [facility] Comment:A not detected test result does [...] psychologicalconsequences. NG PCR NOT DETECTED Not Detect. [facility] Comment:A not detected test result does [...] 4:18 PM EDT 01/24/2025 12:17 PM EDT us Leelee Yanes MD LAB MICROBIOLOGY - [facility] AL ORDERABLES Final Result [facility] [address], [place] [phone] * POCT Hgb A1c (01/23/2025 3:25 PM EDT) Hemoglobin A1C 5.5 4.0 - 5.7 % QC Media Lot # [id number] Lot# Expiration Date ,216,200 Blood 01/23/2025 3:25 PM EDT Leelee Yanes MD POINT OF CARE TEST ENTER /EDIT ORDERABLES Final Result * POCT Glucose (01/23/2025 3:07 PM EDT) Glucose Blood, POC 109 60 - 200 mg/dL Comment:random QC Media Lot # [id number] Lot# Expiration Date Blood Capillary blood specimen / Unknown 01/23/2025 3:07 PM EDT Result [facility] Leelee Yanes MD POINT OF CARE TEST ENTER /EDIT ORDERABLES Final Result * Vitamin D, 25-Hydroxy, Total, Immunoassay (01/23/2025 10:46 AM EDT) Pathologist [facility] Vitamin D 25-OH Total 40.7 >30 ng/mL [facility] Comment: Health Based Reference Values*< 20 ng/mL [id number] ng/mL Insufficient> 30 ng/mL Sufficient*Librado GERARDO. N [...] Performing Organization Address [facility]/ZIP Co de Phone Number [facility] [address] [place] [phone] * Vitamin B12/Folate, Serum Panel (01/23/2025 10:46 AM EDT) Vitamin B12 207 200 - 900 pg/mL [facility] Comment:NORMAL 200-900 PG/ML INDETERMINATE 160-199 PG/ML DEFICIENT < 160 PG/ML Folate 14.1 > or = 4.0 ng/mL [facility] Comment:Reference Values:> o r = 4.0 [...] ORDERABLES Fin al Result Performing Organization Address [facility] Co de Phone Number [facility] [address] [place] [phone] * TSH with Reflex to Free T4 (01/23/2025 10:46 AM EDT) TSH reflex Free T4 1.42 0.32 - 4.0 uIU/mL [facility] Blood 01/23/2025 10:4 6 AM EDT 01/23/2025 1:06 PM EDT Leelee Yanes MD LAB BLOOD ORDERABLES Fin al Result Performing Organization Address City/[facility]/ZIP Co de Phone Number [facility] [address] [place] [phone] * Phosphate (As Phosphorus) (01/23/2025 10:46 AM EDT) Phosphorus 3.6 2.7 - 4.5 mg/dL [facility] Blood Venous blood specimen / Unknown 01/23/2025 10:46 AM EDT 01/23/2025 1:06 PM EDT us Leelee Yanes MD LAB BLOOD ORDERABLES Fin al Result Performing Organization Address City/State/[facility] Co de Phone Number [facility] [address] [place] [phone] * US Renal Complete (01/20/2025 2:41 PM EDT) Anatomical Region Laterality Modality Kidney Ultrasound 01/20/2025 2:41 PM EDT Narrative 01/20/2025 3:08 PM EDT [address] [address] Ultrasound Report Signed Patient: Ann-Marie Flores MR#: [id number] 6 : 1965 Acct:[id number] Age/Sex: 59 / F ADM Date: 01/20/25 Loc: HO.US Attending Dr: Adal Christiansen MD Ordering Physician: Adal Christiansen MD Date of Service: 01/20/25 Procedure(s): US renal BI Accession Number(s): [id number] cc: Adal Christiansen MD; Leelee Yanes MD [...] Shay Tim MD 01/20/2025 03:05 PM EDT RP Dictated By: Shay Tim MD Signed By: <Electronically signed by Shay Tim MD in OV> 01/20/25 1505 DD/ 1441 TD/TT: 01/20/25 1450 Mat Puncher: Procedure Note Donotuseinterpreter, Image - 01/20/2025 [place] [address] Ultrasound Report Signed Patient: Ann-Marie Flores NMR#: [id number] 6 : 1965Acct:[id number] Age/Sex: 59 / FADM Date: 01/20/25 Loc: HO.US Attending Dr: Adal Christiansen MD Ordering Physician: Adal Christiansen MD Date of Service: 01/20/25 Procedure(s): US renal BI Accession Number(s): [id number] cc: Adal Christiansen MD; Leelee Yanes MD [...] 01/20/25 1505 DD/ 1441 TD/TT: 01/20/25 1450 Mat Puncher: [facility] External Provider IMG US PROCEDURES Final Result * Referral to Podiatry (12/31/2024) Leelee Yanes MD OUTPATIENT REFERRAL [place]DE [place] Final Result * Hm Colonoscopy (11/15/2024) Colonoscopy Normal Normal Narrative Shadi Carrizalesba - 11/15/2024 Recommended 10 years. See See external hospital admission note on 11/15/2024 Historical Provider HEALTH MAINTENANCE Final Result * BI Mammogram Screening Tomosynthesis Bilateral (05/03/2024 10:15 AM EST) Anatomical Region Laterality Modality Breast Bilateral Mammography 05/03/2024 10:1 5 AM EST Narrative 05/12/2024 8:49 AM EST [address] [place] [address] Mammography Report Signed with Addenda Patient: Ann-Marie Flores MR#: [id number] 6 : 1965 Acct:[id number] Age/Sex: 58 / F ADM Date: 05/03/24 Loc: DAVIO Attending Dr: Leelee Yanes MD Ordering Physician: Leelee Yanes MD Results: 2Be nign Findings Date of Service: 05/03/24 Follow Up: 1 Year From Orig inal Mammogram Procedure(s): MM tomosynthesis screening BI Accession Number(s): [id number] cc: Leelee Yanes MD ADDENDUM ADDENDUM #1 [...] in OV> 05/12/24 0847 DD/ 14 TD/TT: 05/03/24 102 Mat Puncher: Procedure Note Donotuseinterpreter, Image - 05/27/2024 [facility] [address] [place] [address] [place] [address] Mammography Report Signed with Addenda Patient: Ann-Marie Flores [facility]#: [id number] 6 : 1965Acct:[id number] Age/Sex: 58 / FADM Date: 05/03/24 Loc: HO.MAMMO Attending Dr: Leelee Yanes MD Ordering Physician: Leelee Yanes MDResults: 2Be nign Findings Date of Service: 05/03/24Follow Up: 1 Year From Orig ina Mammogram Procedure(s): MM tomosynthesis screening BI Accession Number(s): [id number] cc: Leelee Yanes MD ADDENDUM ADDENDUM #1 [...] 05/12/24 0847 DD/ 1015 TD/TT: 05/03/24 1025 Mat Puncher: us Leelee Yanes MD IMG BI PROCEDURES Edited Result - Final * Albumin, Random Urine W/Creatinine (05/18/2023 8:57 AM EST) Creatinine, Urine 309.29 mg/dL [facility] Microalbumin Urine 9.0 mg/L [facility] Microalbum Creatinine Ratio Ur 2.9 <30 ug/mg cr [facility] Comment:Albumin/Creatinine R atio Reference Ranges: Normal: < 30 ug/mg creatinine Microalbuminuria: 30 - 300 ug/mg creatinineClinical Albuminuria: > 300 ug/mg creatinine 05/18/2023 8:57 AM EST 05/18/2023 11:33 AM EST us Leelee Yanes MD LAB URINE ORDERABLES Fin al Result [facility] [address] [place] [address] [phone] * (ABNORMAL) Lipid Panel with Reflex to Direct LDL (05/18/2023 8:51 AM EST) Triglycerides 278(H) <150 mg/dL [facility] Comment:Desirable Triglyceri de: less than 150 mg/dLBorderline High Triglyceride 150-199 mg/dLHigh Triglyceride: 200-499 mg/dLVery High Triglyceride: greater than or equal to 5OO mg/dL Cholesterol 168 <200 mg/dL [facility] Comment:Desirable Cholestero l: less than 200 mg/dLBorderline High Cholesterol: 200-239 mg/dLHigh Cholesterol: greater than 239 mg/dL LDL Cholesterol Calculated 77 <100 mg/dL [facility] Comment:Desirable LDL: less than 100 mg/dLNear Optimal/Above Optimal LDL: 110- 129 mg/dLBorderline High LDL: 130-159 mg/dLHigh LDL: 160-189 mg/dLVery High LDL: greater than or equal to 190 mg/dL HDL Cholesterol 36(L) >40 mg/dL [facility] Comment:Desirable HDL: great er than 40 mg/dL Note: This HDL assay may give artificially low results in patients with liver disease. Blood 05/18/2023 8:51 AM EST 05/18/2023 11:48 AM EST Leelee Yanes MD LAB BLOOD ORDERABLES Fin al Result [facility] [address], [place] [phone] from Last 3 Months or Most Recently Relevant to Health Maintenance Insurance [employer] Care Teams Die Hardener Relationship Specialty Start Date End Date Leelee Yanes MD [address] [place] [address] PCP - General Family Medicine 06/11/20
--- OUTSIDE RECORDS SUMMARY | 2025-02-17 13:58 | XMS_ITS | Encounter Summary ---
Author Organization [employer] Address [address] [place] [address] 7t [place] [address] Care Team Providers Care Modern Languages Professor Name Role Phone Leelee Yanes MD Primary Care Provider + Reason for Visit * Reason Comments Med Refill Encounter Details Date Type Department Care Team (Late st Contact Info) Description 06/25/2022 Refill [facility] [address] [place] [phone] Marbella Carlin DO [address] [place], [place] [phone] Acute bilateral low back pain, unspecified whether [...] Description 06/02/2025 1:00 PM EST Clinical Support [facility] [address] [place] [phone] Yoana Perry RN documented as of this encounter Visit Diagnoses Diagnosis Acute bilateral low back pain, unspecified whether sciatica present documented in this encounter Care Teams Modern Languages Professor Relationship Specialty Start Date End Date Leelee Yanes MD [address] [place] [address] PCP - General Family Medicine 06/11/20 documented as of this encounter
--- OUTSIDE RECORDS SUMMARY | 2025-02-17 13:58 | XMS_ITS | Encounter Summary ---
Author Organization [employer] Address [address] [place] [address] 7t [place] [address] Care Team Providers Care Precinct Captain Name Role Phone Leelee Yanes MD Primary Care Provider + Reason for Visit * Reason Comments Med Refill Encounter Details Date Type Department Care Team ([facility] st Contact Info) Description 06/05/2023 Refill [facility] [address] [place] [address] Leelee Yanes MD [address] [place] [address] Lumbar radiculopathy; Primary osteoarthritis of left knee; [...] Description 06/02/2025 1:00 PM EST Clinical Support [facility]INE [address] [place] [address] Yoana Perry RN documented as of this encounter Visit Diagnoses Diagnosis Lumbar radiculopathy Thoracic or lumbosacral neuritis or radiculitis, unspecified Primary osteoarthritis of left knee Acute bilateral low back pain, unspecified whether sciatica present documented in this encounter Additional Health Concerns Assessment Noted Time PHQ-9 Depression Total Score: 16 024 9:59 AM EST documented as of this encounter Care Teams Precinct Captain Relationship Specialty Start Date End Date Leelee Yanes MD [address] [place] [address] PCP - General Family Medicine 06/11/20 documented as of this encounter
--- OUTSIDE RECORDS SUMMARY | 2025-02-17 13:59 | XMS_ITS | Encounter Summary ---
Author Organization [employer] Address [address] [facility] 7t [place] [address] Care Team Providers Care Music Theory Teacher Name Role Phone Leelee Yanes MD Primary Care Provider + Reason for Visit * Reason Comments Med Refill Encounter Details Date Type Department Care Team (Late st Contact Info) Description 06/06/2024 Refill [facility] MED & PEDS [address] [place] [address] Leelee Yanes MD [address] [place] [address] Lumbar radiculopathy; Primary osteoarthritis of left knee; [...] 1:00 PM EST Clinical Support [facility] MEDICINE [address] [place] [address] Yoana Perry RN documented as of this encounter Visit Diagnoses Diagnosis Lumbar radiculopathy Thoracic or lumbosacral neuritis or radiculitis, unspecified Primary osteoarthritis of left knee Acute bilateral low back pain, unspecified whether sciatica present documented in this encounter Additional Health Concerns Assessment Noted Time PHQ-9 Depression Total Score: 16 024 9:59 AM EST documented as of this encounter Care Teams Music Theory Teacher Relationship Specialty Start Date End Date Leelee Yanes MD [address] [place] [address] PCP - General Family Medicine 06/11/20 documented as of this encounter
--- OUTSIDE RECORDS SUMMARY | 2025-02-17 13:59 | XMS_ITS | Encounter Summary ---
Author Organization [employer] Address [address] [place] [address] 7t [place] [address] Care Team Providers Care Bag End Sewer Name Role Phone Leelee Yanes MD Primary Care Provider + Reason for Visit * Reason Comments Med Refill Encounter Details Date Type Department Care Team ([facility] st Contact Info) Description 06/05/2023 Refill [facility] [address] [place] [address] Leelee Yanes MD [address] [place] [address] Lumbar radiculopathy; Primary osteoarthritis of left knee; [...] Description 06/02/2025 1:00 PM EST Clinical Support [facility] [address] [place] [address] Yoana Perry RN documented as of this encounter Visit Diagnoses Diagnosis Lumbar radiculopathy Thoracic or lumbosacral neuritis or radiculitis, unspecified Primary osteoarthritis of left knee Acute bilateral low back pain, unspecified whether sciatica present documented in this encounter Additional Health Concerns Assessment Noted Time PHQ-9 Depression Total Score: 16 024 9:59 AM EST documented as of this encounter Care Teams Bag End Sewer Relationship Specialty Start Date End Date Leelee Yanes MD [address] [place] [address] PCP - General Family Medicine 06/11/20 documented as of this encounter
--- OUTSIDE RECORDS SUMMARY | 2025-02-17 13:59 | XMS_ITS | Patient Health Record ---
Author Organization [facility] Address [address] [place] [address] Care Team Providers Care Automation/Controls Manager Name Role Phone Yoel Yanes MD Primary Care Provider Unavail able Shay Araya Unavailable [phone] Allergies Allergen (clinical drug ingredient) Drug/Non Drug Allergy documented on EMR Reaction Allergy Type Onset Date Status Rocephin Unknown Drug Allergy Active Keflex Unknown Drug Allergy Active sulfamethoxazole / trimethoprim Bactrim Unknown Drug Allergy Active Results Component Value Reference Range Notes Glucose, Whole Blood Reviewed date:11/16/2024 01:03:38 AM Interpretation: Performing Lab:[facility], [address] [place] [phone] Notes/Report: Glucose, Whole Blood 94 60-115 mg/dL METER # : [id number] Pathology (Not yet reviewed by provider) Interpretation: Performing Lab:[facility], [address] [place] [phone] Notes/Report: Reason For Referral Referring Provider First Name Ivana Referring Provider Last Name Eduardo Referred Organization [facility] Referred Provider Shay Araya Referred Address [address] [facility],[address],[place],[address], Referred Provider Specialty Gastroentero logy General Notes Carri Vidal 2024 01:54:30 PM requested a [facility] referral from the [facility] for visit with Dr. Araya on 08-07-2024 Referral Priority Routine Medications Medication SIG (Take, Route, Frequency, Duration) Notes Start Date End Date Status Citalopram Hydrobromide 40 MG TOME TAYLOR TABLETA TODOS LOS D EN LA MA YOEL Oral; Duration: 30 Days Active Mupirocin 2 % APLIQUE AL KATHY AFEC TADA TODOS LOS D POR 10 D External; Duration: 10 Days Active DuoNeb Active Colyte w Flavor Packs 240 GM as directed Orally as directed; Duration: 1 day(s) 04/05/2014 Active Saline 0.65 % [...] EVERY TWELVE HOURS NEEDED FOR SEVERE PAIN Oral; Duration: 28 Days Active Zolpidem Tartrate 10 MG 1 tablet at bedt myrna as needed Orally Once a day Active Trulicity 1.5 MG/0.5ML INJECT ONE PEN (= 1.5MG) SUBCUTANEOUSLY ONCE A WEEK DIRECTED Subcutaneous; Duration: 28 Days Active Citalopram Hydrobromide 40 MG 0.5 tablet Orally Once a day Active Ketotifen Fumarate 0.035 % PONGA TAYLOR GOTA EN NICOLE AFECTADO DOS VECES AL JOSÉ LUIS Ophthalmic; Duration: 19 Days Active buPROPion HCl ER (XL) 300 MG 1 tablet in the morning Orally Once a day Active Ipratropium Magazine 0.03 % INHALE 1-2 SPRAYS NASALLY NEEDED UP TO 3 TIMES A DAY. Nasal; Duration: 30 Days Active ProAir HFA 108 (90 Base) MCG/ACT 2 puffs as needed Inhalation every 4 hrs Active PriLOSEC OTC 20 MG 1 tablet Orally Once a day Not-Taking Furosemide 20 MG 1 tablet Orally Once a day Active Daily-Royal Multivitamin - TAKE 1 TABLET BY MOUTH WITH FOOD Oral; Duration: 90 Days Active LORazepam 0.5 MG 1 tablet as needed O rally Twice a day Active Multivitamin Orally Active Atorvastatin Calcium 40 MG TOME 1 TABLETA POR V A ORAL TODOS LOS D Oral; Duration: 90 Days Active Ibuprofen 600 MG 1 tablet Orally Thre e times a day Active Montelukast Sodium 10 MG TOME TAYLOR TABLETA TODOS LOS D AL ACOSTARSE Oral; Duration: 90 Days Active Doxycycline Hyclate 50 MG 2 capsules Orally Once a day Active Pantoprazole Sodium 40 MG TOME 1 TABLETA POR V A ORAL TODOS LOS D EN LA MA YOEL Oral; Duration: 90 Days Active Hibiclens 4 % Externally Activ e Loratadine 10 MG TOME 1 TABLETA POR V A ORAL TODOS LOS D Oral; Duration: 90 Days Active Loratadine 10 MG 1 [...] Status W/U Status Risk Notes Problem Diarrhea (89782673) Diarrhea (787.91) Active confirmed Problem Colon cancer screening (484154730) Colon cancer screening (V76.51) Active confirmed Problem Gastroesophageal reflux disease (135002856) GERD (gastroesopha geal reflux disease) (530.81) Active confirmed Problem Colon cancer screening (971916753) Colon cancer screening (Z12.11) Active confirmed Problem Dysphagia (45320536) Dysphagia (R13.10) Active confirmed Problem Gastroesophageal reflux disease (866272170) GERD (gastroesopha geal reflux disease) (K21.9) Active [...] N/A Encounters Encounter Location Date Provider Diagnosis [facility] Outpatient [address] [place], [place] [phone] 11/15/2024 Shay Araya [facility] [address] [place] [phone] 08/07/2024 Shay Quiana Colon cancer screening Z12.11 ; Dysphagia R13.10 and GERD (gastroesophageal reflux disease) K21.9 [facility] [address] [place] [phone] 08/07/2024 Shay Araya Assessments Encounter Date Diagnosis [...] Of note, there will be a medical assisting instructor present on the day of the procedure [...] Of note, there will be a medical assisting instructor present on the day of the procedure [...] Of note, there will be a medical assisting instructor present on the day of the procedure [...] Start Date Coverage End Date [facility] [address] [place]IE LUCIANO [phone] [id number] ANN-MARIE HARRIS Self - patient is the insured Medical (General) History Medical History History ICD Code Neg. colonoscopy in 2001 GERD-EGD in 2001 with no esophagitis, HH , nor Leonardo's Allergic rhinitis Back pain Asthma Hypertension Hyperlipidemia Obesity Sleep apnea-uses CPAP Denies NC,CVA,renal disease Depression/Anxiety Arthritis NIDDM Negative screening colonoscopy in 06/2014 Kidney stones Surgical History Surgery Date(Month/Year) Gastric sleeve with Dr. Blanco 2015 Bilateral knee replacement-2022 she had a complication during [employer]PERVIS[employer] surgery that required a subsequent exploratory laparotomy, lysis of adhesions, drainage of a pelvic abscess, a resection of the distal ileum and cecum, and a right to left ureterostomy Hysterectomy [address] Rubi
--- OUTSIDE RECORDS SUMMARY | 2025-02-17 13:59 | XMS_ITS | Encounter Summary ---
Author Organization [employer] Address [address] [place] [address] 7t [place] [address] Care Team Providers Care Recruitment Assistant Name Role Phone Leelee Yanes MD Primary Care Provider + Reason for Visit * Reason Onset Date Comments Med Refill 05/24/2024 Encounter Details Date Type Department Care Team ([facility] st Contact Info) Description 05/24/2024 Telephone [facility] [address] [place], [place] [phone] Leelee Yanes MD [address] [place], [place] [phone] Med Refill Social History Tobacco Use Types [...] MG/0.5ML solution pen-injector To be sent to: [facility] - [place], [place] - [address] [facility] PT DOES NOT HAVE ANY MEDICATION LEFT documented in this encounter Plan of Treatment Upcoming Encounters Date Type Department Care Team (Late st Contact Info) Description 06/02/2025 1:00 PM EST Clinical Support [facility] MEDICINE [address] [place] [address] Yoana Perry RN documented as of this encounter Visit Diagnoses Not on filedocumented in this encounter Additional Health Concerns Assessment Noted Time PHQ-9 Depression Total Score: 16 024 9:59 AM EST documented as of this encounter Care Teams Recruitment Assistant Relationship Specialty Start Date End Date Leelee Yanes MD [address] [place] [address] PCP - General Family Medicine 06/11/20 documented as of this encounter
--- OUTSIDE RECORDS SUMMARY | 2025-02-17 13:59 | XMS_ITS | Encounter Summary ---
Author Organization [employer] Address [address] [place] [address] 7t [place] [address] Care Team Providers Care Coding And Reimbursement Specialist Name Role Phone Leelee Yanes MD Primary Care Provider + Reason for Visit * Reason Comments Med Refill Encounter Details Date Type Department Care Team ([facility] st Contact Info) Description 05/22/2024 Refill [facility] MEDICINE [address] [place] [address] Leelee Yanes MD [address] [place], [place] [phone] Type 2 diabetes mellitus without complication, without long-term current use of insulin ([facility]) Social History Tobacco Use Types [...] 06/02/2025 1:00 PM EST Clinical Support [facility] MEDICINE [address] [place] [address] Yoana Perry RN documented as of this encounter Visit Diagnoses Diagnosis Type 2 diabetes mellitus without complication, without long-term current use of insulin (HCC) documented in this encounter Additional Health Concerns Assessment Noted Time PHQ-9 Depression Total Score: 16 024 9:59 AM EST documented as of this encounter Care Teams Coding And Reimbursement Specialist Relationship Specialty Start Date End Date Leelee Yanes MD [address] [place] [address] PCP - General Family Medicine 06/11/20 documented as of this encounter
--- OUTSIDE RECORDS SUMMARY | 2025-02-17 13:59 | XMS_ITS | Encounter Summary ---
Author Organization [employer] Address [address] [place] [address] 7t [place] [address] Care Team Providers Care Accountant Assistant Name Role Phone Leelee Yanes MD Primary Care Provider + Encounter Details Date Type Department Care Team (Late st Contact Info) Description 05/03/[address] [facility] CHC MED & PEDS [address] [place] [address] Marbella Munoz LPN Social History Tobacco Use [...] Description 06/02/2025 1:00 PM EST Clinical Support [facility] MEDICINE [address] [place] [address] Yoana Perry, RN documented as of this encounter Visit Diagnoses Not on filedocumented in this encounter Care Teams Accountant Assistant Relationship Specialty Start Date End Date Leelee Yanes MD [address] [place], [place] [phone] PCP - General Family Medicine 06/11/20 documented as of this encounter
--- OUTSIDE RECORDS SUMMARY | 2025-02-17 13:59 | XMS_ITS | Encounter Summary ---
Author Organization [employer] Address [address] [place] [address] 7t [place] [address] Care Team Providers Care Robot Technician Name Role Phone Leelee Yanes MD Primary Care Provider + Reason for Visit * Reason Onset Date Comments pre op 02/17/2025 Encounter Details Date Type Department Care Team ([facility] st Contact Info) Description 02/17/2025 Telephone [facility] [address] [place] [address] Leelee Yanes MD [address] [place] [address] pre op Social History Tobacco Use Types Packs/Day Years [...] encounter Miscellaneous Notes * Telephone Encounter - Emma Fairchild - 02/17/2025 1:37 PM EDT Date of Surgery: 03/11 Surgical procedure being done: Cataract right eye Type of anesthesia: MAC Lab needed: No EKG: No Surgeon's name: Dr Rian Isidro Facility name: [facility] Surgeon's office number: [phone] Surgeon's office fax number: [phone] Contact name (person you spoke with): Sofiya Last office note from surgeon requested: Yes Send Message to Nader Hernandez documented in this encounter Plan of Treatment Upcoming Encounters Date Type Department Care Team ([facility] st Contact Info) Description 06/02/2025 1:00 PM EST Clinical Support [facility] [address] [place] [phone] Yoana Perry RN documented as of this encounter Visit Diagnoses Not on filedocumented in this encounter Additional Health Concerns Assessment Noted Time PHQ-9 Depression Total Score: 15 025 9:19 AM EDT documented as of this encounter Care Teams Robot Technician Relationship Specialty Start Date End Date Leelee Yanes MD [address] [place] [address] PCP - General Family Medicine 06/11/20 documented as of this encounter
--- OUTSIDE RECORDS SUMMARY | 2025-02-17 13:59 | XMS_ITS | Encounter Summary ---
Author Organization [employer] Address [address] [facility] 7t [place] [address] Care Team Providers Care Health Manager Name Role Phone Leelee Yanes MD Primary Care Provider + Reason for Visit * Reason Comments Med Refill Encounter Details Date Type Department Care Team (Late st Contact Info) Description 10/10/2024 Refill [facility] MED & PEDS [address] [place] [address] Leelee Yanes MD [address] [place] [address] Lumbar radiculopathy; Primary osteoarthritis of left knee; [...] Description 06/02/2025 1:00 PM EST Clinical Support [facility] MEDICINE [address] [place] [address] Yoana Perry RN documented as of this encounter Visit Diagnoses Diagnosis Lumbar radiculopathy Thoracic or lumbosacral neuritis or radiculitis, unspecified Primary osteoarthritis of left knee Acute bilateral low back pain, unspecified whether sciatica present documented in this encounter Additional Health Concerns Assessment Noted Time PHQ-9 Depression Total Score: 16 024 9:59 AM EST documented as of this encounter Care Teams Health Manager Relationship Specialty Start Date End Date Leelee Yanes MD [address] [place] [address] PCP - General Family Medicine 06/11/20 documented as of this encounter
--- OUTSIDE RECORDS SUMMARY | 2025-02-17 13:59 | XMS_ITS | Encounter Summary ---
Author Organization [employer] Address 75 [facility] 7t [place] [address] Care Team Providers Care Tile Inspector Name Role Phone Leelee Yanes MD Primary Care Provider + Reason for Visit * Reason Comments Med Refill Encounter Details Date Type Department Care Team (Late st Contact Info) Description 06/10/2024 Refill [facility] MED & PEDS [address] [place] [address] Leelee Yanes MD 230 [place] [address] Lumbar radiculopathy; Primary osteoarthritis of left knee; [...] 06/02/2025 1:00 PM EST Clinical Support [facility] MEDICINE 230 [place] [address] Yoana Perry RN documented as of this encounter Visit Diagnoses Diagnosis Lumbar radiculopathy Thoracic or lumbosacral neuritis or radiculitis, unspecified Primary osteoarthritis of left knee Acute bilateral low back pain, unspecified whether sciatica present documented in this encounter Additional Health Concerns Assessment Noted Time PHQ-9 Depression Total Score: 16 024 9:59 AM EST documented as of this encounter Care Teams Tile Inspector Relationship Specialty Start Date End Date Leelee Yanes MD 230 [place] [address] PCP - General Family Medicine 06/11/20 documented as of this encounter
--- OUTSIDE RECORDS SUMMARY | 2025-02-17 14:00 | XMS_ITS | Encounter Summary ---
Author Organization [employer] Address [address] [place] [address] 7t [place] [address] Care Team Providers Care Tank House Operator Name Role Phone Leelee Yanes MD Primary Care Provider + Encounter Details Date Type Department Care Team (Late st Contact Info) Description 05/18/2022 Orders Only [facility] MEDICINE [address] [place] [phone] Ghada Isidro LPN Social History Tobacco Use [...] 1:00 PM EST Clinical Support [facility] MED[facility]INE [address] [place] [phone] Yoana Perry, RN documented as of this encounter Visit Diagnoses Not on filedocumented in this encounter Care Teams Tank House Operator Relationship Specialty Start Date End Date Leelee Yanes MD [address] [place] [address] PCP - General Family Medicine 06/11/20 documented as of this encounter
--- OUTSIDE RECORDS SUMMARY | 2025-02-17 14:00 | XMS_ITS | Encounter Summary ---
Author Organization [employer] Address [address] [place] [address] 7t [place] [address] Care Team Providers Care Deli Worker Name Role Phone Leelee Yanes MD Primary Care Provider + Reason for Visit * Reason Comments Med Refill Encounter Details Date Type Department Care Team (Late st Contact Info) Description 01/18/2023 Refill [facility] MEDICINE [address] [place] [address] [phone] Leelee Yanes MD [address] [place] [address] [phone] Social History Tobacco Use Types Packs/Day Years [...] Description 06/02/2025 1:00 PM EST Clinical Support [facility] MEDICINE [address] [place] [address] [phone] Yoana Perry RN documented as of this encounter Visit Diagnoses Not on filedocumented in this encounter Additional Health Concerns Assessment Noted Time PHQ-9 Depression Total Score: 14 023 9:55 AM EDT documented as of this encounter Care Teams Deli Worker Relationship Specialty Start Date End Date Leelee Yanes MD [address] [place] [address] PCP - General Family Medicine 06/11/20 documented as of this encounter
--- OUTSIDE RECORDS SUMMARY | 2025-02-17 14:00 | XMS_ITS | Encounter Summary ---
Author Organization [employer] Address 75 [facility] 7t [place] [address] Care Team Providers Care Dramatic Teacher Name Role Phone Leelee Yanes MD Primary Care Provider + Encounter Details Date Type Department Care Team ([facility] Contact Info) Description 01/23/2023 Orders Only [facility] CH[facility] MED & PEDS 505 [place] [address] Ghada Isidro LPN Social History Tobacco Use [...] Description 06/02/2025 1:00 PM EST Clinical Support [facility] MEDICINE 230 [place] [address] Yoana Perry RN documented as of this encounter Visit Diagnoses Not on filedocumented in this encounter Additional Health Concerns Assessment Noted Time PHQ-9 Depression Total Score: 14 023 9:55 AM EDT documented as of this encounter Care Teams Dramatic Teacher Relationship Specialty Start Date End Date Leelee Yanes MD [address] [place] [address] PCP - General Family Medicine 06/11/20 documented as of this encounter
--- OUTSIDE RECORDS SUMMARY | 2025-02-17 14:00 | XMS_ITS | Clinical Summary ---
Author Organization [facility] Address 175 [place] [address] Phone Care Team Providers Care Floral Specialist Name Role Phone Leelee Yanes MD Primary Care Provider + [phone] Allergies No known active allergies Medications acetaminophen [...] use of insulin ([facility] V24, [facility] V28) 05/07/2024 Dysphonia 05/07/2024 Primary hypertension 05/07/2024 [...] 2:30 PM EDT Office Visit Orthopedic Surgery [facility] [address] [phone] Sudeep De La Vega DPM Controlled type 2 diabetes with neuropathy ([facility] V24, [facility] V28) (Primary Dx); PAD (peripheral artery disease) (CMS/HCC V24); Equinus contracture of right ankle; Plantar fasciitis 12/31/2024 3:00 PM EDT Office Visit Orthopedic Surgery [place] [address] [phone] Sudeep De La Vega DPM Controlled type [...] Upcoming Encounters Date Type Department Care Team ([facility] st Contact Info) Description 03/04/2025 2:45 PM EST Office Visit Orthopedic Surgery [place] [address] [place] [phone] Sudeep De La Vega, DPM 175 [facility] 250 [place] [address] Health Maintenance Due Date Last Done Comments Breast Cancer Screening 1965 Colorectal Cancer Screening: Colonoscopy 1965 Diabetes: Annual Retina Eye Exam 09/26/1973 Cervical Cancer Screening: Pap Smear 09/26/1984 RSV Immunization Adult Patients (1 - Risk 50-74 years 1-dose series) 09/26/2013 Zoster Vaccines (2 of 2) 08/17/2021 06/22/2021 DTaP,Tdap,and Td Vaccines (3 - Td or Tdap) 07/06/2022 07/06/2012, 11/11/2005 Cholesterol Screening (Lipid Panel) 03/04/2024 HIV Screening [...] Months Insurance MEDICAID - [place] Care Teams Floral Specialist Relationship Specialty Start Date End Date Leelee Yanes MD [address] [phone] PCP - General 06/02/23
--- OUTSIDE RECORDS SUMMARY | 2025-02-17 14:00 | XMS_ITS | Encounter Summary ---
Author Organization [employer] Address [address] [place] [address] 7t [place] [address] Care Team Providers Care Precision Lens Centerer And Edger Name Role Phone Leelee Yanes MD Primary Care Provider + Reason for Visit * Reason Comments Med Refill Encounter Details Date Type Department Care Team (Late st Contact Info) Description 01/22/2025 Refill [facility] 230 [place] [address] Leelee Yanes MD 230 [place] [address] Lumbar radiculopathy; Primary osteoarthritis of left knee; [...] 06/02/2025 1:00 PM EST Clinical Support [facility] 230 [place] [address] Yoana Perry RN documented as of this encounter Visit Diagnoses Diagnosis Lumbar radiculopathy Thoracic or lumbosacral neuritis or radiculitis, unspecified Primary osteoarthritis of left knee Acute bilateral low back pain, unspecified whether sciatica present documented in this encounter Additional Health Concerns Assessment Noted Time PHQ-9 Depression Total Score: 16 024 9:59 AM EST documented as of this encounter Care Teams Precision Lens Centerer And Edger Relationship Specialty Start Date End Date Leelee Yanes MD 230 [place] [address] PCP - General Family Medicine 06/11/20 documented as of this encounter
--- OUTSIDE RECORDS SUMMARY | 2025-02-17 14:00 | XMS_ITS | Encounter Summary ---
Author Organization [email or web address] Address 75 [facility] 7t [place] [address] Care Team Providers Care Match Up Person Name Role Phone Leelee Yanes MD Primary Care Provider + Reason for Visit * Reason Comments Med Refill Encounter Details Date Type Department Care Team (Late st Contact Info) Description 03/07/2023 Refill [facility] MEDICINE 230 [place] [address] Yulia Perez MD 230 [place] [address] Lumbar radiculopathy; Primary osteoarthritis of left knee; [...] Description 06/02/2025 1:00 PM EST Clinical Support [facility] MEDICINE [address] [place] [phone] Yoana Perry RN documented as of this encounter Visit Diagnoses Diagnosis Lumbar radiculopathy Thoracic or lumbosacral neuritis or radiculitis, unspecified Primary osteoarthritis of left knee Acute bilateral low back pain, unspecified whether sciatica present documented in this encounter Additional Health Concerns Assessment Noted Time PHQ-9 Depression Total Score: 14 023 9:55 AM EDT documented as of this encounter Care Teams Match Up Person Relationship Specialty Start Date End Date Leelee Yanes MD [address] [place] [address] PCP - General Family Medicine 06/11/20 documented as of this encounter
--- OUTSIDE RECORDS SUMMARY | 2025-02-17 14:00 | XMS_ITS | Encounter Summary ---
Author Organization [employer] Address 75 [facility] 7t [place] [address] Care Team Providers Care Workers' Compensation Claims Examiner Name Role Phone Leelee Yanes MD Primary Care Provider + Encounter Details Date Type Department Care Team ([facility] st Contact Info) Description 02/17/2023 Telephone [facility] MEDICINE 230 [place], [place] [phone] Leelee Yanes MD 230 [place] [address] Social History Tobacco Use Types Packs/Day Years [...] C3 requesting a call in regards to NON PROFIT FINANCIAL CONTROLLER form. Please contact parvez at [phone] documented in this encounter Plan of Treatment Upcoming Encounters Date Type Department Care Team (Late st Contact Info) Description 06/02/2025 1:00 PM EST Clinical Support [facility] MEDICINE 230 [place] [address] Yoana Perry, RN documented as of this encounter Visit Diagnoses Not on filedocumented in this encounter Additional Health Concerns Assessment Noted Time PHQ-9 Depression Total Score: 14 023 9:55 AM EDT documented as of this encounter Care Teams Workers' Compensation Claims Examiner Relationship Specialty Start Date End Date Leelee Yanes MD 230 [place] [address] PCP - General Family Medicine 06/11/20 documented as of this encounter
--- OUTSIDE RECORDS SUMMARY | 2025-02-17 14:01 | XMS_ITS | Encounter Summary ---
Author Organization [employer] Address [address] [place] [address] 7t [place] [address] Care Team Providers Care Fur Trapper Name Role Phone Leelee Yanes MD Primary Care Provider + Reason for Visit * Reason Comments Med Refill Encounter Details Date Type Department Care Team (Late Contact Info) Description 08/31/[address] [facility] MEDICINE 230 [place] [address] Leelee Yanes MD 230 [place] [address] Acute bilateral low back pain, unspecified whether [...] 1:00 PM EST Clinical Support [facility] MEDICINE 230 [place] [address] Yoana Perry, ESTEFANÍA documented as of this encounter Visit Diagnoses Diagnosis Acute bilateral low back pain, unspecified whether sciatica present documented in this encounter Additional Health Concerns Assessment Noted Time PHQ-9 Depression Total Score: 14 023 9:55 AM EDT documented as of this encounter Care Teams Fur Trapper Relationship Specialty Start Date End Date Leelee Yanes MD 230 [place] [address] PCP - General Family Medicine 06/11/20 documented as of this encounter
--- OUTSIDE RECORDS SUMMARY | 2025-02-17 14:01 | XMS_ITS | Encounter Summary ---
Author Organization [employer] Address 75 [facility] 7t [place] [address] Care Team Providers Care Sas Clinical Programmer Name Role Phone Leelee Yanes MD Primary Care Provider + Reason for Visit * Reason Comments Med Refill Encounter Details Date Type Department Care Team (Late Contact Info) Description 09/04/2022 Refill [facility] MED & PEDS 505 [place] [address] Leelee Yanes MD 230 [place] [address] nursing home current use of diuretic Social History Tobacco [...] 1:00 PM EST Clinical Support [facility] MEDICINE 230 [place] [address] Yoana Perry RN documented as of this encounter 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
--- OUTSIDE RECORDS SUMMARY | 2025-02-17 14:01 | XMS_ITS | Encounter Summary ---
Author Organization [employer] Address [address] [place] [address] 7t [place] [address] Care Team Providers Care Internet Merchant Name Role Phone Leelee Yanes MD Primary Care Provider + Reason for Visit * Reason Comments Med Refill Encounter Details Date Type Department Care Team (Late Contact Info) Description 01/06/2023 Refill [facility] MEDICINE [address] [place] [phone] Leelee Yanes MD [address] [place] [address] [phone] Lumbar radiculopathy; Primary osteoarthritis of left knee; [...] Clinical Support [facility] MEDICINE [address] [place] [address] [phone] Yoana Perry RN documented as of this encounter Visit Diagnoses Diagnosis Lumbar radiculopathy Thoracic or lumbosacral neuritis or radiculitis, unspecified Primary osteoarthritis of left knee Acute bilateral low back pain, unspecified whether sciatica present documented in this encounter Additional Health Concerns Assessment Noted Time PHQ-9 Depression Total Score: 14 023 9:55 AM EDT documented as of this encounter Care Teams Internet Merchant Relationship Specialty Start Date End Date Leelee Yanes MD [address] [place] [address] PCP - General Family Medicine 06/11/20 documented as of this encounter
--- OUTSIDE RECORDS SUMMARY | 2025-02-17 14:01 | XMS_ITS | Encounter Summary ---
Author Organization [employer] Address 75 [facility] 7t [place] [address] Care Team Providers Care Unit Aide Name Role Phone Leelee Yanes MD Primary Care Provider + Encounter Details Date Type Department Care Team ([facility] Contact Info) Description 07/19/2022 Orders Only [facility] MED & PEDS 505 [place], [place] [phone] Marbella Munoz LPN Social History Tobacco Use [...] 1:00 PM EST Clinical Support [facility] MEDICINE 230 [place], [place] [phone] Yoana Perry RN documented as of this encounter Visit Diagnoses Not on filedocumented in this encounter Care Teams Unit Aide Relationship Specialty Start Date End Date Leelee Yanes MD 230 [place] [address] PCP - General Family Medicine 06/11/20 documented as of this encounter
--- OUTSIDE RECORDS SUMMARY | 2025-02-17 14:01 | XMS_ITS | Encounter Summary ---
Author Organization [employer] Address [address] [place] [address] 7t [place] [address] Care Team Providers Care Fringing Machine Operator Name Role Phone Leelee Yanes MD Primary Care Provider + Reason for Visit * Reason Onset Date Comments Durable Medical Equipment 09/28/2022 Encounter Details Date Type Department Care Team (Late st Contact Info) Description 09/28/2022 Telephone [facility] MEDICINE 230 [place] [address] Leelee Yanes MD 230 [place] [address] Durable Medical Equipment Social History Tobacco Use [...] have PCP send script for walker to [facility] on [facility]. Please contact pt at [phone] documented in this encounter Plan of Treatment Upcoming Encounters Date Type Department Care Team (Late st Contact Info) Description 06/02/2025 1:00 PM EST Clinical Support [facility] MEDICINE [address] [place] [phone] Yoana Perry RN documented as of this encounter Visit Diagnoses Not on filedocumented in this encounter Additional Health Concerns Assessment Noted Time PHQ-9 Depression Total Score: 14 023 9:55 AM EDT documented as of this encounter Care Teams Fringing Machine Operator Relationship Specialty Start Date End Date Leelee Yanes MD [address] [place] [address] PCP - General Family Medicine 06/11/20 documented as of this encounter
--- OUTSIDE RECORDS SUMMARY | 2025-02-17 14:01 | XMS_ITS | Encounter Summary ---
Author Organization [employer] Address [address] [place] [address] 7t [place] [address] Care Team Providers Care Wire Worker Name Role Phone Leelee Yanes MD Primary Care Provider + Reason for Visit * Reason Comments Med Refill Encounter Details Date Type Department Care Team (Late st Contact Info) Description 08/02/2022 Refill [facility] MEDICINE [address] [place] [address] [phone] Leelee Yanes MD [address] [place] [address] [phone] Acute bilateral low back pain, unspecified whether [...] Clinical Support [facility] MEDICINE [address] [place] [phone] Vicky, Yoana, RN documented as of this encounter Visit Diagnoses Diagnosis Acute bilateral low back pain, unspecified whether sciatica present documented in this encounter Care Teams Wire Worker Relationship Specialty Start Date End Date Leelee Yanes MD [address] [place] [address] PCP - General Family Medicine 06/11/20 documented as of this encounter
--- OUTSIDE RECORDS SUMMARY | 2025-02-17 14:01 | XMS_ITS | Encounter Summary ---
Author Organization [employer] Address [address] [place] [address] 7t [place] [address] Care Team Providers Care Director Of Bands Name Role Phone Leelee Yanes MD Primary Care Provider + Reason for Visit * Reason Comments Med Refill Encounter Details Date Type Department Care Team ([facility] st Contact Info) Description 03/15/2024 Refill [facility] MEDICINE 230 [place] [address] Leelee Yanes MD 230 [place], [place] [phone] Type 2 diabetes mellitus without complication, without long-term current use of insulin ([facility]) Social History Tobacco Use [...] Description 06/02/2025 1:00 PM EST Clinical Support [facility] MEDICINE 230 [place] [address] Yoana Perry RN documented as of this encounter Visit Diagnoses Diagnosis Type 2 diabetes mellitus without complication, without long-term current use of insulin (HCC) documented in this encounter Additional Health Concerns Assessment Noted Time PHQ-9 Depression Total Score: 16 024 9:59 AM EST documented as of this encounter Care Teams Director Of Bands Relationship Specialty Start Date End Date Leelee Yanes MD 230 [place] [address] PCP - General Family Medicine 06/11/20 documented as of this encounter
--- OUTSIDE RECORDS SUMMARY | 2025-02-17 14:01 | XMS_ITS | Encounter Summary ---
Author Organization [employer] Address [address] [place] [address] 7t [place] [address] Care Team Providers Care Epic Stork Specialists Name Role Phone Leelee Yanes MD Primary Care Provider + Reason for Visit * Reason Comments Med Refill Encounter Details Date Type Department Care Team ([facility] Contact Info) Description 08/04/2022 Refill [facility] MEDICINE [address] [place] [phone] Marbella Carlin DO 230 [place], [place] [phone] Social History Tobacco Use Types Packs/Day Years [...] Description 06/02/2025 1:00 PM EST Clinical Support [facility] MEDICINE [address] [place] [phone] Yoana Perry RN documented as of this encounter Visit Diagnoses Not on filedocumented in this encounter Care Teams Epic Stork Specialists Relationship Specialty Start Date End Date Leelee Yanes MD [address] [place] [address] PCP - General Family Medicine 06/11/20 documented as of this encounter
== END 2025-02-17 11:20 | disposition home or self-care (01) ==
LOC: HO.HHCL 11:19
PROVIDERS: PCP Internal Medicine; Visit Provider Internal Medicine
DX: E83.42 Hypomagnesemia (principal)
CPT/HCPCS: 36415; 83735; 84132

== ENCOUNTER 2025-03-13 10:30 | Outpatient (REF) | payer MEDICAID, SELFPAY ==
--- OUTSIDE RECORDS SUMMARY | 2024-11-15 06:00 | XMS_ITS ---
Author Organization [facility] Address [address] [place] [address] Care Team Providers Care Frothing Machine Operator Name Role Phone Farzana KELLY, Leelee Primary Care Provider Unavail Shay Ashraf [phone] REASON FOR VISIT gerd, dysphagia, screening Encounters Encounter Location Date Provider Diagnosis [facility] [place] [address] [facility] [place] [id number] 11/15/2024 Shay Araya Plan Of Treatment No Information Progress Notes * HARRISERWIN RIOS NDOB:1965 (59 yo F)Acc No.[id number]:11/15/2024 EGD and COL/MAC Patient: ERWIN TATE Provider: Diana Araya MD :1965 A ge:59 Y S ex:Female Date:11/15/2024 Address[address] [id number] Pcp:Leelee Yanes MD Subjective: * Chief Complaints: * 1 . Gerd, dysphagia, screening. * Medical History: Objective: * Vitals: Assessment: Plan: * Treatment: * * The named appointment provid er may or may not be the originator of this progress note, and it is not deemed complete until electronically signed by the appointment provider. Sign off status: Pending * Provider: Diana Araya MD Date: 0 11/15/2024 Generated for Margyi ng/Farachelleg/eTransmitting on: 05/13/2024 12:52 PM EST
--- OUTSIDE RECORDS SUMMARY | 2025-03-13 12:51 | XMS_ITS | Encounter Summary ---
Author Organization [employer] Address [address] [place] [address] 7t [place] [address] Care Team Providers Care Field Test Engineer Name Role Phone Leelee Yanes MD Primary Care Provider + Reason for Visit * Reason Comments Med Refill Encounter Details Date Type Department Care Team ([facility] st Contact Info) Description 06/05/2023 Refill [facility] MEDICINE 230 [place] [address] Leelee Yanes MD 230 [place] [address] Lumbar radiculopathy; Primary osteoarthritis of left knee; [...] Description 06/02/2025 1:00 PM EST Clinical Support [facility] MEDICINE [address] [place] [address] Yoana Perry RN documented as of this encounter Visit Diagnoses Diagnosis Lumbar radiculopathy Thoracic or lumbosacral neuritis or radiculitis, unspecified Primary osteoarthritis of left knee Acute bilateral low back pain, unspecified whether sciatica present documented in this encounter Additional Health Concerns Assessment Noted Time PHQ-9 Depression Total Score: 16 024 9:59 AM EST documented as of this encounter Care Teams Field Test Engineer Relationship Specialty Start Date End Date Leelee Yanes MD 230 [place] [address] PCP - General Family Medicine 06/11/20 documented as of this encounter
--- OUTSIDE RECORDS SUMMARY | 2025-03-13 12:51 | XMS_ITS | Encounter Summary ---
Author Organization [email or web address] Address [address] [place] [address] 7t [place] [address] Care Team Providers Care E Commerce Retailer Name Role Phone Leelee Yanes MD Primary Care Provider + Reason for Visit * Reason Comments Med Refill Encounter Details Date Type Department Care Team (Late Contact Info) Description 07/12/2022 Refill [facility] MEDICINE [address] [place] [address] [phone] Name, MD Charles [address] [place] [phone] Acute bilateral low back pain, unspecified whether [...] Description 06/02/2025 1:00 PM EST Clinical Support [facility] MEDICINE [address] [place] [phone] Yoana Perry RN documented as of this encounter Visit Diagnoses Diagnosis Acute bilateral low back pain, unspecified whether sciatica present documented in this encounter Care Teams E Commerce Retailer Relationship Specialty Start Date End Date Leelee Yanes MD [address] [place] [address] PCP - General Family Medicine 06/11/20 documented as of this encounter
--- OUTSIDE RECORDS SUMMARY | 2025-03-13 12:51 | XMS_ITS | Encounter Summary ---
Author Organization [facility] Address [address] [place] [address] 7 [place] [address] Care Team Providers Care Block Sawyer Name Role Phone Leelee Yanes MD Primary Care Provider + Reason for Visit * Reason Comments Med Refill Encounter Details Date Type Department Care Team ([facility] Contact Info) Description 05/24/2022 Refill [facility] [address] [place] [phone] Leelee Yanes MD [address] [place] [phone] Acute bilateral low back pain, unspecified whether [...] Description 06/02/2025 1:00 PM EST Clinical Support [facility] [address] [place] [phone] Yoana Perry RN documented as of this encounter Visit Diagnoses Diagnosis Acute bilateral low back pain, unspecified whether sciatica present documented in this encounter Care Teams Block Sawyer Relationship Specialty Start Date End Date Leelee Yanes MD [address] [place] [address] [phone] PCP - General Family Medicine 06/11/20 documented as of this encounter
--- OUTSIDE RECORDS SUMMARY | 2025-03-13 12:51 | XMS_ITS | Encounter Summary ---
Author Organization [facility] [employer] Address [address] [place] [address] [address] [place] [address] Care Team Providers Care Manager Change Name Role Phone Leelee Yanes MD Primary Care Provider + Reason for Visit * Reason Comments Med Refill Encounter Details Date Type Department Care Team (Late st Contact Info) Description 06/25/2022 Refill [facility] [address] [place] [phone] Marbella Carlin DO [address], [place] [phone] Acute bilateral low back pain, unspecified whether [...] Description 06/02/2025 1:00 PM EST Clinical Support [facility] [address] [place] [phone] Yoana Perry RN documented as of this encounter Visit Diagnoses Diagnosis Acute bilateral low back pain, unspecified whether sciatica present documented in this encounter Care Teams Manager Change Relationship Specialty Start Date End Date Leelee Yanes MD [address] [place] [id number] PCP - General Family Medicine 06/11/20 documented as of this encounter
--- OUTSIDE RECORDS SUMMARY | 2025-03-13 12:52 | XMS_ITS | Clinical Summary ---
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 90 tablet 3 Active Multiple Vitamin (Daily-Royal Multivitamin) tablet TAKE 1 TABLET BY MOUTH WITH FOOD 90 tablet 3 025 Active Acetaminophen Extra Strength 500 MG tablet TAKE 1 TABLET BY MOUTH EVERY 8 HOURS IF NEEDED. 90 tablet 025 Active magnesium oxide (Mag-Ox) 400 MG tablet 1 tablet p.o. twice daily x 3 days, then 1 tablet p.o. q. OD thereafter x 2 weeks 15 tablet 025 Active traMADol (Ultram) 50 MG tabletIndication s:Lumbar radiculopathy,Pr imary osteoarthritis of left knee,Acute bilateral low back pain, unspecified whether sciatica present TAKE 1 TABLET BY MOUTH EVERY TWELVE HOURS NEEDED FOR SEVERE PAIN FOR UP TO 28 DAYS 56 tablet 025 2024 Active montelukast (Singulair) 10 MG tabletIndication s:Moderate persistent asthma without complication TOME TAYLOR TABLETA TODOS LOS OSWALD AL ACOSTARSE 90 tablet 3 025 Active montelukast (Singulair) 10 MG tabletIndication s:Moderate persistent asthma without complication TOME TAYLOR TABLETA TODOS [place] OSWALD AL ACOSTARSE 90 tablet 3 024 2024 Discontinued azithromycin (Zithromax Z-Clayton) 250 MG tabletIndication s:Moderate persistent asthma with exacerbation Take 2 tabs po x 1 day then 1 tab po daily x 4 days 6 tablet 025 2024 Discontinued(T herapy completed) clotrimazole (Lotrimin) 1 % cream Apply topically 2 times daily for 28 days. 30 g 5 025 2024 traMADol (Ultram) 50 MG tabletIndication s:Lumbar radiculopathy,Pr imary osteoarthritis of left knee,Acute bilateral low back pain, unspecified whether sciatica present Take 1 tablet (50 mg) by mouth every 12 (twelve) hours if needed for severe pain for up to 28 days. Do not start before January 30, 2025. 56 tablet 025 2024 Discontinued carbamide peroxide (Debrox) 6.5 % otic solution Administer 5-10 drops into affected ear(s) 2 times daily for 4 days. 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 Call back if sxs persist after 1w Long-term current use of opiate analgesic 2023 Overview (02/20/2024): Medication: Tramadol 50mg Q12H BID Indication: lumbar radiculopathy, OA bilat knees Last NEUROLOGY DIRECTOR Agreement: 05/10/23 Assessment & Plan (02/20/2024 8:11 PM EDT): -Today was first group, she will decide if group setting or individual visit with RN is preferred. Scheduled for NEUROLOGY DIRECTOR group 03/12/24 as requested. -Encouraged multifactorial approach [...] for Utox today, she will fu with NEUROLOGY DIRECTOR nurse, she's aware that she should be [...] has changed from most recent one (see NEUROLOGY DIRECTOR nurse note). Next refill will be due [...] replaced if lost or stolen. FU with NEUROLOGY DIRECTOR nurse as scheduled Assessment & Plan (06/24/2022 1:08 PM EST): Continue weight reduction, tylenol 1000mg BID and 500mg tramadol qhs FU with orthopedics recommended use of cane for ambulation counseled regarding compliance with NEUROLOGY DIRECTOR appointments, utox ordered today was negative pharmaco education regarding opiate use including proper storage, prohibited sharing medications with others, avoid alcohol or other recreational substances counseled to FU closely with NEUROLOGY DIRECTOR provider. Type 2 diabetes mellitus with diabetic cataract 06/24/2022 Assessment & Plan (01/23/2025 3:37 PM EDT): [...] activity. Check home BP BIW and prn CP/NEWELL/OMRENO Non smoking patient. Allergic rhinitis 04/30/2015 Chronic [...] Use clotrimazole cream prn to affected areas. 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 03/07/2025 Refill [facility] [address], [place] [phone] Leelee Yanes MD Moderate persistent asthma without complication 03/06/2025 Refill [facility] [address] [place] [address] Leelee Yanes MD Lumbar radiculopathy; Primary osteoarthritis of left knee; Acute bilateral low back pain, unspecified whether sciatica present 02/26/2025 Telephone [facility] [address] [place] [phone] Leelee Yanes MD Referral 02/25/2025 Refill [facility] [address] [place] [address] Leelee Yanes MD Lumbar radiculopathy; Primary osteoarthritis of left knee; Acute bilateral low back pain, unspecified whether sciatica present 02/24/2025 2:00 PM EDT Office Visit [facility] [address] [place] [phone] Sakshi Yen NP Type 2 diabetes mellitus with diabetic cataract, without long-term current use of insulin (HCC) (Primary Dx); Cataract, unspecified cataract type, unspecified laterality; Essential hypertension; KAYLEE (obstructive sleep apnea); Moderate persistent asthma with exacerbation; Long-term current use of opiate analgesic; History of Murphy's palsy; Vertigo 02/24/2025 Travel 02/21/2025 Telephone [facility] [address] [place] [phone] Osmel Ramirez [place] chart prep 02/21/2025 Refill [facility] [address] [place] [address] Leelee Yanes MD Lumbar radiculopathy; Primary osteoarthritis of left knee; Acute bilateral low back pain, unspecified whether sciatica present 02/17/2025 10:30 AM EDT Office Visit [facility] [address] [place] [address] Sanchez, Karly, OD Presbyopia of both eyes (Primary Dx) 02/17/2025 Telephone [facility] [address] [place] [address] Leelee Yanes MD pre op 02/11/2025 Telephone [facility] [address] [place] [phone] Leelee Yanes MD telephone call 02/11/2025 Results Follow-Up [facility] [place] [phone] Leelee Yanes MD CBC auto differential, Prothrombin Time-INR, NT-proBNP, Additional followed-up results: 7 02/10/2025 Orders Only GENERIC EXTERNAL DATA DEPARTMENT Provider, Generic External Data 02/10/2025 Telephone [address] [place] [phone] Leelee Yanes MD 02/08/2025 Refill [facility] [place] [address] [place] [address] 02/03/2025 2:00 PM EDT Clinical Support [facility] [place] [address] Yoana Perry RN Long-term current use of opiate analgesic (Primary Dx) 02/03/2025 Travel 01/24/2025 Refill [facility] [place] [phone] Leelee Yanes MD Lumbar radiculopathy; Primary osteoarthritis of left knee; Acute bilateral low back pain, unspecified whether sciatica present 01/23/2025 2:45 PM EDT Office Visit [facility] [place] [address] Leelee Yanes MD Type 2 diabetes mellitus without complication, unspecified whether longterm insulin use (CMS/HCC) (Primary Dx); Class 2 severe obesity due to excess calories with serious comorbidity and body mass index (BMI) of 39.0 to 39.9 in adult (CMS/HCC); Dysphonia; Hiatal hernia; Chronic vaginitis; Morbid obesity (CMS/HCC); Dietary counseling; Exercise counseling 01/23/2025 Orders Only [facility] [place] [phone] Leelee Yanes MD 01/23/2025 Travel 01/23/2025 Results Follow-Up [facility] [place] [address] Leelee Yanes MD Basic Metabolic Panel, Magnesium, Phosphate (As Phosphorus), Additional followed-up results: 5 01/23/2025 Telephone [facility] [address] [place] [address] Leelee Yanes MD CRITICAL LAB 01/22/2025 Telephone [facility] [address] [place] [phone] Leelee Yanes MD chart prep 01/22/2025 Telephone [facility] [address] [place] [phone] Leelee Yanes MD 01/22/2025 Refill [facility] [address] [place] [phone] Leelee Yanes MD Lumbar radiculopathy; Primary osteoarthritis of left knee; Acute bilateral low back pain, unspecified whether sciatica present 01/20/2025 Orders Only [facility] External Provider, [facility] 01/17/2025 3:00 PM EDT Office Visit [facility] [address] [place] [phone] SanchezKarly oneal, OD Diabetes type 2, no ocular involvement (CMS/HCC) (Primary Dx); Dry eye syndrome of both eyes; Age-related nuclear cataract of both eyes; Presbyopia of both eyes 01/17/2025 Travel 01/15/2025 Patient Outreach [facility] [address] [place] [phone] Leelee Yanes MD Pre-visit Planning (SDOH screening negative and tobacco screening negative) 01/08/2025 Refill [facility] [address] [place] [phone] Yulia [place] MD 01/01/2025 Refill [facility] [address] [place] [address] Leelee Yanes MD 12/31/2024 Refill [facility] [address] [place] [phone] Leelee Yanes MD Lumbar radiculopathy; Primary osteoarthritis of left knee; Acute bilateral low back pain, unspecified whether sciatica present 12/18/2024 Refill [facility] [address] [place], [place] [phone] Marbella Carlin DO 12/16/2024 Refill [facility] [address] [place] [address] Leelee Yanes MD from Last 3 Months Immunizations Immunization Administration [...] Packs/Day Years Used Date Smoking Tobacco: Never Passive Smoke Exposure: Never Smokeless Tobacco: Never Tobacco Cessation:Counseling Given: [...] Sign Reading Time Taken Comments Blood Pressure 134/78 02/24/2025 2:22 PM EDT Pulse 65 02/24/2025 2:22 PM EDT Temperature 37.1 C (98.8 F) 02/24/2025 2:22 PM EDT Respiratory Rate 12 02/24/2025 2:22 PM EDT Oxygen Saturation 98% 02/24/2025 2:22 PM EDT Inhaled Oxygen Concentration - - Weight 96.2 kg (212 lb 2 oz) 02/24/2025 2:22 PM EDT Height 154.9 cm (5' 1 ) 02/24/2025 2:22 PM EDT Body Mass Index 40.08 02/24/2025 2:22 PM EDT Plan of Treatment Upcoming Encounters Date Type Department Care Team (Late st Contact Info) Description 06/02/2025 1:00 PM EST Clinical Support [facility] [address] [place] [phone] Yoana Perry, RN Health Maintenance Due Date Last Done Comments CT Colonography 1965 FIT DNA/Cologuard 1965 FIT 1965 FOBT 1965 HIV Screening 1965 Sigmoidoscopy 1965 Hepatitis C Screening 09/26/1981 Pap Smear 09/26/1984 Cervical Cancer Screening 09/26/1993 HPV/Cotest 09/26/1993 RSV Patients and Patients Aged 60 years or older (1 - Risk 50-74 years 1-dose series) 09/26/2013 Zoster Vaccines (2 of 2) 08/17/2021 06/22/2021 DTaP/Tdap/Td Vaccines (2 - Td or Tdap) 07/06/2022 07/06/2012, 11/11/2005 Diabetes: Urine Protein Screening 05/18/2024 05/18/2023 Lipid Panel 05/18/2024 05/18/2023, 12/31, 06/25/2020, Additional history exists COVID-19 Vaccine ( season) 2024 02/16/2021, 08/03/2020, 07/13/2020 Influenza Vaccine (#1) 2024 , 05/10/2021, 01/27/2020, Additional history exists Mammogram 05/03/2025 05/03/2024, 06/30, 05/29/2023, Additional history exists Depression Monitoring 07/28/2025 01/28/2025, 025 Diabetes: Hemoglobin A1C 08/25/2025 025, 01/23/2025, 02/20/2024, Additional history exists Diabetes: Foot Exam 12/31/2025 12/31/2024, 02/20/2024, 02/20/2024, Additional history exists SDOH Screening 01/15/2026 01/15/2025 Alcohol/Substance Use Screening 02/24/2026 02/24/2025 Disability Screening 02/24/2026 02/24/2025 Tobacco Screening 02/24/2026 02/24/2025 Eye Exam 01/17/2027 01/17/2025, 12/30, 01/17/2025, Additional [...] Name Priority Date/Time Associated Diagnosis Comments POCT GLYCATED HEMOGLOBIN, TOTAL Routine 02/24/2025 2:24 PM EDT Type 2 diabetes mellitus with diabetic cataract, without long-term current use of insulin (HCC) POCT GLUCOSE Routine 02/24/2025 2:24 PM EDT Type 2 diabetes mellitus with diabetic cataract, without long-term current use of insulin (HCC) POTASSIUM Routine 02/17/2025 11:30 AM EDT Hypomagnesemia [...] 2 diabetes mellitus without complication, unspecified whether longterm insulin use ([facility]) POCT GLUCOSE Routine 01/23/2025 3:07 PM EDT Type 2 diabetes mellitus without complication, unspecified whether longterm insulin use ([facility]) VITAMIN B12/FOLATE, SERUM PANEL Routine 01/23/2025 10:46 [...] complication, without long-term current use of insulin ([facility]) Long toenail HM COLONOSCOPY Routine 11/15/2024 BI MAMMOGRAM SCREENING TOMOSYNTHESIS BILATERAL Routine 05/03/2024 10:15 AM EST ALBUMIN, RANDOM URINE W/CREATININE Routine 05/18/2023 8:57 AM EST LIPID PANEL WITH REFLEX TO DIRECT LDL Routine 05/18/2023 8:51 AM EST Essential hypertension from Last 3 Months or Most Recently Relevant to Health Maintenance Results * POCT Hgb A1c (02/24/2025 2:24 PM EDT) Only the most recent of2 resultswithin the time period is included. Hemoglobin A1C 5.7 4.0 - 5.7 % QC Media Lot # [id number] Lot# Expiration Date [id number] Blood 02/24/2025 2:24 PM EDT Sakshi Yen NP POINT OF CARE TEST ENTER/EDIT OR DERABLES Final Result * POCT Glucose (02/24/2025 2:24 PM EDT) Only the most recent of2 resultswithin the time period is included. Glucose Blood, POC 109 60 - 200 mg/dL QC Media Lot # [id number] Lot# Expiration Date [id number] Blood Capillary blood specimen / Unknown 02/24/2025 2:24 PM EDT Result [facility] Sakshi Yen NP POINT OF CARE TEST ENTER/EDIT OR DERABLES Final Result * Potassium (02/17/2025 11:30 AM EDT) Only the most recent of2 resultswithin the time period is included. Potassium 3.7 3.3 - 5.1 mmol/L [facility] Blood Venous blood specimen / Unknown 02/17/2025 11:30 AM EDT 02/17/2025 12:59 PM EDT Result [facility] Leelee Yanes MD LAB BLOOD ORDERABLES Fin al Result Performing Organization Address City/[facility] Co de Phone Number [facility] [address] [place] [phone] * (ABNORMAL) Magnesium (02/17/2025 11:30 AM EDT) Only the most recent of5 resultswithin the time period is included. Magnesium 1.5(L) 1.6 - 2.6 mg/dL [facility] Blood Venous blood specimen / Unknown 02/17/2025 11:30 AM EDT 02/17/2025 12:59 PM EDT Leelee Yanes MD LAB BLOOD ORDERABLES Fin al Result Performing Organization Address City/[facility]/ZIP Co de Phone Number [facility] [address] [place] [phone] * (ABNORMAL) Basic Metabolic Panel (02/10/2025 7:17 PM EDT) Only the most recent of2 resultswithin the time period is included. Sodium 145 135 - 145 mmol/L [facility] Potassium 3.6 3.3 - 5.1 mmol/L [facility] Chloride 106 96 - 108 mmol/L [facility] Carbon Dioxide 30(H) 22 - 29 mmol/L [facility] Anion Gap 13 12 - 20 [facility] Urea Nitrogen (BUN) 18(H) 9 - 16 mg/dL [facility] Creatinine, Serum 1.09 0.5 - 1.4 mg/dL [facility] Creatinine Clr Calc Pharmacy 56.8 [facility] Comment:Provided height and weight: 154.94 cm,94.3 kg.eGFR (calculated from the MDRD study equation) and eCrCl(calculated from the Cockcroft-Gault equation) are based ondifferent parameters and may not yield comparable results.If eCrCl result is absurd, please check patient'sheight/weight. Estimated Glomerular Filt Rate 51 [facility] Comment:Chronic Kidney Disea se: Estimated GFR < 60 mL/min/1.74l5Lcrlce Kidney Disease: Estimated GFR < 15 mL/min/1.73m2 Glucose 109 60 - 115 mg/dL [facility] Calcium 9.4 8.4 - 10.2 mg/dL [facility] 02/10/2025 7:17 PM EDT 02/10/2025 7:21 PM EDT us Generic External Data Provider LAB BLOOD ORDERAB LES Final Result [facility] [address] [place] [phone] * XR Chest 2 Views (02/10/2025 4:22 PM EDT) Anatomical Region Laterality Modality Chest Radiographic Kim ging 02/10/2025 4:22 PM EDT Narrative 02/10/2025 4:23 PM EDT [address] [address] XRay Report Signed Patient: Ann-Marie Flores MR#: [id number] 6 : 1965 Acct:[id number] Age/Sex: 59 / F ADM Date: 02/10/25 Loc: HO.ED Attending Dr: Ordering Physician: Zeina Leiva Date of Service: 02/10/25 Procedure(s): XR chest 2V Accession Number(s): [id number] cc: Leelee Yanes MD; Zeina Leiva Reason [...] signed by Saige Morocho MD in OV> 02/10/25 1623 DD/ 162 TD/TT: 02/10/251621 Cement Car Dumper: Procedure Note Donotuseinterpreter, Image - 02/10/2025 [place] [address] XRay Report Signed Patient: Ann-Marie Flores [facility]#: [id number] 6 : 1965Acct:[id number] Age/Sex: 59 / FADM Date: 02/10/25 Loc: .ED Attending Dr: Ordering Physician: Zeina Leiva Date of Service: 02/10/25 Procedure(s): XR chest 2V Accession Number(s): [id number] cc: Leelee Yanes MD; Zeina Leiva Reason [...] signed by Saige Morocho MD in OV> 02/10/25 1623 DD/ 1622 TD/TT: 02/10/25 1622 Cement Car Dumper: [facility] External Provider IMG XR PROCEDURES Edited Result - Final * High Sensitivity Troponin I (02/10/2025 3:39 PM EDT) TROPONIN I HIGH SENSITIVITY <2.7 <3.5 - 17.0 ng/L [facility] Comment:The [place] high sens itivity Troponin-I results should beused in conjunction with other diagnostic information suchas ECG, clinical observations and information, and patientsymptoms to aid in the diagnosis of NV. 02/10/2025 3:39 PM EDT 02/10/2025 3:45 PM EDT Generic External Data Provider LAB BLOOD ORDERAB LES Final Result Performing Organization Address City/State/[facility] Co de Phone Number [facility] [address] [place] [phone] * NT-proBNP (02/10/2025 3:39 PM EDT) Pathologist [facility] NT-proBNP 164.2 <300 pg/mL [facility] Comment:Reference Range:Age Group (years) NT-proBNP (pg/ml) InterpretationAll <300 Negative: HF unlikelyFor patients presenting to the ED with clinical suspicion ofnew onset or worsening HF, see below:18 to <50 >299.9 to <450.0 Grayzone: [id number] to 75 >299.9 to <900.0 other causes of>75 >299.9 to <1800.0 NT-proBNP to <50 >449.9 Positive: HF [id number] >899.9>75 >1799.9Note: Elevated NT-proBNP levels should be interpreted inthe context of other clinical information. 02/10/2025 3:39 PM EDT 02/10/2025 3:45 PM EDT Generic External Data Provider LAB BLOOD ORDERAB LES Final Result [facility] [address] [place], [place] [phone] * (ABNORMAL) CBC auto differential (02/10/2025 3:39 PM EDT) White Blood Count 11.5(H) 4.8 - 10.8 X10*3/uL [facility] Red Blood Count 4.65 4.20 - 5.50 X10*6/uL [facility] Hemoglobin 12.5 12.0 - 16.0 g/dl [facility] Hematocrit 38.7 37.0 - 47.0 % [facility] Mean Corpuscular Volume 83.2 80.0 - 98.0 fL [facility] Mean Corpuscular Hemoglobin 26.9(L) 27.0 - 33.0 pg [facility] Mean Corpuscular HGB Conc 32.3 31.0 - 35.0 g/dl [facility] Red Cell Distribution Width 14.3 11.0 - 16.0 % [facility] Platelet Count 338 160 - 400 X10*3/uL [facility] Mean Platelet Volume 10.7 9.4 - 12.3 fL [facility] Neutrophils Percent Auto 71.6 45 - 73 % [facility] Imm Gran Pct Auto 0.3 0.0 - 0.4 % [facility] Lymphocytes Percent Auto 20.5 20 - 40 % [facility] Monocytes Percent Auto 7.2 2 - 11 % [facility] Eosinophils Percent Auto 0.1 0 - 4 % [facility] Basophils Percent Auto 0.3 0 - 2 % [facility] NRBC Pct Auto 0.0 0.0 - 0.2 /100WBC [facility] Neutrophils Absolute Auto 8.2 2.0 - 8.3 x10*3/uL [facility] Imm Gran Abs Auto 0.03 0.00 - 0.03 X10*3/uL [facility] Lymphocytes Absolute Auto 2.4 1.2 - 4.9 X10*3/uL [facility] Monocytes Absolute Auto 0.8 0.1 - 1.2 X10*3/uL [facility] Eosinophils Absolute Auto 0.0 0.0 - 0.4 X10*3/uL [facility] Basophils Absolute Auto 0.0 0.0 - 0.2 X10*3/uL [facility] NRBC Abs Auto 0.000 0.0 - 0.012 X10*3/uL [facility] 02/10/2025 3:39 PM EDT 02/10/2025 3:45 PM EDT Generic External Data Provider LAB BLOOD ORDERAB LES Final Result Performing Organization Address [facility] de Phone Number [facility] [address] [place] [phone] * Prothrombin Time-INR (02/10/2025 3:39 PM EDT) Prothrombin Time 11.5 10.9 - 12.4 SEC [facility] INTERNATIONAL NORM RATIO 1.0 0.9 - 1.1 [facility] Comment:INTERNATIONAL NORMAL IZED RATIO (INR) [...] 3:39 PM EDT 02/10/2025 3:45 PM EDT [employer] External Data Provider LAB BLOOD ORDERAB LES Final Result Performing Organization Address [facility] de Phone Number [facility] [address] [place] [phone] * (ABNORMAL) Comprehensive Metabolic Panel (02/10/2025 3:39 PM EDT) Pathologist [facility] Sodium 145 135 - 145 mmol/L [facility] Potassium 3.2(L) 3.3 - 5.1 mmol/L [facility] Chloride 108 96 - 108 mmol/L [facility] Carbon Dioxide 28 22 - 29 mmol/L [facility] Anion Gap 12 12 - 20 [facility] Urea Nitrogen (BUN) 18(H) 9 - 16 mg/dL [facility] Creatinine, Serum 1.08 0.5 - 1.4 mg/dL [facility] Creatinine Clr Calc Pharmacy 57.3 [facility] Comment:Provided height and weight: 154.94 cm,94.3 kg.eGFR (calculated from the MDRD study equation) and eCrCl(calculated from the Cockcroft-Gault equation) are based ondifferent parameters and may not yield comparable results.If eCrCl result is absurd, please check patient'sheight/weight. Estimated Glomerular Filt Rate 52 [facility] Comment:Chronic Kidney Disea se: Estimated GFR < 60 mL/min/1.79v2Xsopel Kidney Disease: Estimated GFR < 15 mL/min/1.73m2 Glucose 109 60 - 115 mg/dL [facility] Calcium 8.9 8.4 - 10.2 mg/dL [facility] Bilirubin, Total 0.4 0.0 - 1.0 mg/dL [facility] Aspartate Amino Transferase 22 5 - 31 U/L [facility] Alanine Aminotransferase 32(H) 0 - 31 U/L [facility] Total Protein 7.1 6.5 - 8.0 g/dL [facility] Albumin Level 4.2 3.5 - 5.0 g/dL [facility] Alkaline Phosphatase 100 39 - 117 U/L [facility] 02/10/2025 3:39 PM EDT 02/10/2025 3:45 PM EDT us Generic External Data Provider LAB BLOOD ORDERAB LES Final Result [facility] [address] [place] [phone] * (ABNORMAL) POCT ZACHARY-14 Urine Drug [...] - 02/03/2025 2:06 PM EDT UTOX cup Lot#[id number] Exp. 02/04/26 Internal Pass Control Leelee Yanes MD POINT OF CARE TEST ENTER /EDIT ORDERABLES Final Result * Bacterial Vaginosis (01/23/2025 4:18 PM EDT) TRICHOMONAS VAGINALIS DETECTION BY PCR NOT DETECTED Not Detect [facility] BACTERIAL VAGINOSIS DETECTION BY PCR NEGATIVE Negative [facility] Comment:The BV organism targ ets [...] DETECTION BY PCR NOT DETECTED Not Detect [facility] Chula glab krusei PCR NOT DETECTED Not Detect [facility] 01/23/2025 4:18 PM EDT 01/24/2025 12:19 PM EDT us Leelee Yanes MD LAB MICROBIOLOGY - GENER AL ORDERABLES Final Result [facility] [address] [place] [address] [phone] * Chlamydia/N. Gonorrhoeae RNA, TMA, Urogenitial (01/23/2025 4:18 PM EDT) CT PCR NOT DETECTED Not Detect. [facility] Comment:A not detected test result [...] psychologicalconsequences. NG PCR NOT DETECTED Not Detect. [facility] Comment:A not detected test result [...] MICROBIOLOGY - GENER AL ORDERABLES Final Result [facility] [address] [place] [address] [phone] * Vitamin D, 25-Hydroxy, Total, Immunoassay (01/23/2025 10:46 AM EDT) Vitamin D 25-OH Total 40.7 >30 ng/mL [facility] Comment: Health Based Reference Values*< 20 ng/mL Kyweuhdrh42-37 ng/mL Insufficient> 30 ng/mL Sufficient*Librado GERARDO. N [...] MD LAB BLOOD ORDERABLES Fin al Result [facility] [address] [place] [address] [phone] * Vitamin B12/Folate, Serum Panel (01/23/2025 10:46 AM EDT) Vitamin B12 207 200 - 900 pg/mL [facility] Comment:NORMAL 200-900 PG/ML INDETERMINATE 160-199 PG/ML DEFICIENT < 160 PG/ML Folate 14.1 > or = 4.0 ng/mL [facility] Comment:Reference Values:> o r = [...] ORDERABLES Fin al Result Performing Organization Address City/[facility] Co de Phone Number [facility] [address] [place] [phone] * TSH with Reflex to Free T4 (01/23/2025 10:46 AM EDT) TSH reflex Free T4 1.42 0.32 - 4.0 uIU/mL [facility] Blood 01/23/2025 10:4 6 AM EDT 01/23/2025 1:06 PM EDT Leelee Yanes MD LAB BLOOD ORDERABLES Fin al Result Performing Organization Address [facility] Co de Phone Number [facility] [address] [place] [phone] * Phosphate (As Phosphorus) (01/23/2025 10:46 AM EDT) Phosphorus 3.6 2.7 - 4.5 mg/dL [facility] Blood Venous blood specimen / Unknown 01/23/2025 10:46 AM EDT 01/23/2025 1:06 PM EDT Leelee Yanes MD LAB BLOOD ORDERABLES Fin al Result [facility] [address] [place] [phone] * US Renal Complete (01/20/2025 2:41 PM EDT) Anatomical Region Laterality Modality Kidney Ultrasound 01/20/2025 2:41 PM EDT Narrative 01/20/2025 3:08 PM EDT [address] [address] Ultrasound Report Signed Patient: Ann-Marie Flores MR#: [id number] 6 : 1965 Acct:[id number] Age/Sex: 59 / F ADM Date: 01/20/25 Loc: HO.US Attending Dr: Adal Christiansen MD Ordering Physician: Adal Christiansen MD Date of Service: 01/20/25 Procedure(s): US renal BI Accession Number(s): [id number] cc: Adal Christiansen MD; Leelee Yanes MD [...] 01/20/25 1505 DD/ 1441 TD/TT: 01/20/25 1450 Cement Car Dumper: Procedure Note Donotuseinterpreter, Image - 01/20/[address] [address] Ultrasound Report Signed Patient: Ann-Marie Flores NMR#: [id number] 6 : 1965Acct:[id number] Age/Sex: 59 / FADM Date: 01/20/25 Loc: HO.US Attending Dr: Adal Christiansen MD Ordering Physician: Adal Christiansen MD Date of Service: 01/20/25 Procedure(s): US renal BI Accession Number(s): [id number] cc: Adal Christiansen MD; Leelee Yanes MD [...] 01/20/25 1505 DD/ 1441 TD/TT: 01/20/25 1450 Cement Car Dumper: us [facility] External Provider IMG US PROCEDURES Final Result * Referral to Podiatry (12/31/2024) Leelee Yanes MD OUTPATIENT REFERRAL [facility] Final Result * Hm Colonoscopy (11/15/2024) Colonoscopy Normal Normal Narrative Latanya Carrizales - 11/15/2024 Recommended 10 years. See See external hospital admission note on 11/15/2024 Historical Provider HEALTH MAINTENANCE Final Result * BI Mammogram Screening Tomosynthesis Bilateral (05/03/2024 10:15 AM EST) Anatomical Region Laterality Modality Breast Bilateral Mammography 05/03/2024 10:1 5 AM EST Narrative 05/12/2024 8:49 AM EST [facility] [address] [place] [address] Mammography Report Signed with Vannesa Patient: Ann-Marie Flores MR#: [id number] 6 : 1965 Acct:[id number] Age/Sex: 58 / F ADM Date: 05/03/24 Loc: HO.MAMMO Attending Dr: Leelee Yanes MD Ordering Physician: Leelee Yanes MD Results: 2Be nign Findings Date of Service: 05/03/24 Follow Up: 1 Year From Orig inal Mammogram Procedure(s): MM tomosynthesis screening BI Accession Number(s): [id number] cc: Leelee Yanes MD ADDENDUM ADDENDUM #1 ADDENDUM: The current mammogram has been reviewed and remains BI-RADS as follows OVERALL ASSESSMENT: BI-RADS 2 - Benign Findings RECOMMENDATION: 1 year F/U Electronically signed by: Tricia German DO 05/27/2024 03:27 PM EST Addendum Dictated By: Tricia German DO Addendum Signed By: <Electronically signed by rTicia German DO in OV> 05/27/24 1527 Addendum [...] German DO in OV> 05/12/24 0847 DD/ TD/TT: 05/03/241024 Cement Car Dumper: Procedure Note Donotuseinterpreter, Image - 05/27/2024 [facility] [address] [place] [address] Mammography Report Signed with Addenda Patient: Ann-Marie Flores [facility]#: [id number] 6 : 1965Acct:[id number] Age/Sex: 58 / FADM Date: 05/03/24 Loc: HO.MAMMO Attending Dr: Leelee Yanes MD Ordering Physician: Leelee Yanes MDResults: 2Be nign Findings Date of Service: 05/03/24Follow Up: 1 Year From Orig ina Mammogram Procedure(s): MM tomosynthesis screening BI Accession Number(s): [id number] cc: Leelee Yanes MD ADDENDUM ADDENDUM #1 [...] German DO in OV> 05/12/24 0847 DD/ TD/TT: 05/03/24 102 Cement Car Dumper: eLelee Yanes MD IMG BI PROCEDURES Edited Result - Final * Albumin, Random Urine W/Creatinine (05/18/2023 8:57 AM EST) Creatinine, Urine 309.29 mg/dL [facility] Microalbumin Urine 9.0 mg/L H [facility] Microalbum Creatinine Ratio Ur 2.9 <30 ug/mg cr [facility] Comment:Albumin/Creatinine R atio Reference Ranges: Normal: < 30 ug/mg creatinine Microalbuminuria: 30 - 300 ug/mg creatinineClinical Albuminuria: > 300 ug/mg creatinine 05/18/2023 8:57 AM EST 05/18/2023 11:33 AM EST us Leelee Yanes MD LAB URINE ORDERABLES Fin al Result [facility] [address] [place] [phone] * (ABNORMAL) Lipid Panel with Reflex to Direct LDL (05/18/2023 8:51 AM EST) Triglycerides 278(H) <150 mg/dL [facility] Comment:Desirable Triglyceri de: less than 150 mg/dLBorderline High Triglyceride 150-199 mg/dLHigh Triglyceride: 200-499 mg/dLVery High Triglyceride: greater than or equal to 5OO mg/dL Cholesterol 168 <200 mg/dL [facility] Comment:Desirable Cholestero l: less than 200 mg/dLBorderline High Cholesterol: 200-239 mg/dLHigh Cholesterol: greater than 239 mg/dL LDL Cholesterol Calculated 77 <100 mg/dL [facility] Comment:Desirable LDL: less than 100 mg/dLNear Optimal/Above Optimal LDL: 110- 129 mg/dLBorderline High LDL: 130-159 mg/dLHigh LDL: 160-189 mg/dLVery High LDL: greater than or equal to 190 mg/dL HDL Cholesterol 36(L) >40 mg/dL [facility] Comment:Desirable HDL: great er than 40 mg/dL Note: This HDL assay may give artificially low results in patients with liver disease. Blood 05/18/2023 8:51 AM EST 05/18/2023 11:48 AM EST us Leelee Yanes MD LAB BLOOD ORDERABLES Fin al Result [facility] [address] [place], [place] [phone] from Last 3 Months or Most Recently Relevant to Health Maintenance Insurance LessThan3 C3 Care Teams Coil Taper Relationship Specialty Start Date End Date Leelee Yanes MD [address] [place] [address] PCP - General Family Medicine 06/11/20
--- OUTSIDE RECORDS SUMMARY | 2025-03-13 12:52 | XMS_ITS | Encounter Summary ---
Author Organization [employer] Address [address] [place] [address] 7[address] [place] [address] Care Team Providers Care Mechanical Supervisor Name Role Phone Leelee Yanes MD Primary Care Provider + Reason for Visit * Reason Onset Date Comments Med Refill 05/24/2024 Encounter Details Date Type Department Care Team ([facility] st Contact Info) Description 05/24/2024 Telephone [facility] [address] [place] [address] Leelee Yanes MD [address] [place] [address] Med Refill Social History Tobacco Use Types [...] MG/0.5ML solution pen-injector To be sent to: [facility] - [place], [place] - [address] [facility] PT DOES NOT HAVE ANY MEDICATION LEFT documented in this encounter Plan of Treatment Upcoming Encounters Date Type Department Care Team (Late st Contact Info) Description 06/02/2025 1:00 PM EST Clinical Support [facility] [address] [place] [address] Yoana Perry RN documented as of this encounter Visit Diagnoses Not on filedocumented in this encounter Additional Health Concerns Assessment Noted Time PHQ-9 Depression Total Score: 16 024 9:59 AM EST documented as of this encounter Care Teams Mechanical Supervisor Relationship Specialty Start Date End Date Leelee Yanes MD [address] [place] [phone] PCP - General Family Medicine 06/11/20 documented as of this encounter
--- OUTSIDE RECORDS SUMMARY | 2025-03-13 12:52 | XMS_ITS | Encounter Summary ---
Author Organization [employer] Address [address] [place] [address] 7[address] [place] [address] Care Team Providers Care Final Assembly And Packing Supervisor Name Role Phone Leelee Yanes MD Primary Care Provider + Reason for Visit * Reason Comments Med Refill Encounter Details Date Type Department Care Team ([facility] st Contact Info) Description 05/22/2024 Refill [facility] [address] [place] [address] Leelee Yanes MD [address] [place], [place] [phone] Type 2 diabetes mellitus without complication, without long-term current use of insulin ([facility]) Social History Tobacco Use Types [...] EST Clinical Support [facility] [address] [place] [address] Yoana Perry RN documented as of this encounter Visit Diagnoses Diagnosis Type 2 diabetes mellitus without complication, without long-term current use of insulin (HCC) documented in this encounter Additional Health Concerns Assessment Noted Time PHQ-9 Depression Total Score: 16 024 9:59 AM EST documented as of this encounter Care Teams Final Assembly And Packing Supervisor Relationship Specialty Start Date End Date Leelee Yanes MD [address] [place] [address] PCP - General Family Medicine 06/11/20 documented as of this encounter
--- OUTSIDE RECORDS SUMMARY | 2025-03-13 12:52 | XMS_ITS | Encounter Summary ---
Author Organization [employer] Address [address] [place] [address] 7t [place] [address] Care Team Providers Care Resolution Analyst Name Role Phone Leelee Yanes MD Primary Care Provider + Reason for Visit * Reason Onset Date Comments Durable Medical Equipment 09/28/2022 Encounter Details Date Type Department Care Team (Late st Contact Info) Description 09/28/2022 Telephone [facility] [address] [place] [address] Leelee Yanes MD [address] [place] [address] Durable Medical Equipment Social History Tobacco Use [...] have PCP send script for walker to [facility] on [facility]. Please contact pt at [phone] documented in this encounter Plan of Treatment Upcoming Encounters Date Type Department Care Team (Late st Contact Info) Description 06/02/2025 1:00 PM EST Clinical Support [facility] [address] [place] [phone] Yoana Perry RN documented as of this encounter Visit Diagnoses Not on filedocumented in this encounter Additional Health Concerns Assessment Noted Time PHQ-9 Depression Total Score: 14 023 9:55 AM EDT documented as of this encounter Care Teams Resolution Analyst Relationship Specialty Start Date End Date Leelee Yanes MD [address] [place] [phone] PCP - General Family Medicine 06/11/20 documented as of this encounter
--- OUTSIDE RECORDS SUMMARY | 2025-03-13 12:52 | XMS_ITS | Encounter Summary ---
Author Organization [employer] Address [address] [place] [address] 7t [place] [address] Care Team Providers Care Java Systems Analyst Name Role Phone Leelee Yanes MD Primary Care Provider + Reason for Visit * Reason Comments Med Refill Encounter Details Date Type Department Care Team ([facility] st Contact Info) Description 06/05/2023 Refill [facility] [address] [place] [address] Leelee Yanes MD [address] [place] [address] Lumbar radiculopathy; Primary osteoarthritis of left knee; [...] EST Clinical Support [facility] [address] [place] [address] Yoana Perry RN documented as of this encounter Visit Diagnoses Diagnosis Lumbar radiculopathy Thoracic or lumbosacral neuritis or radiculitis, unspecified Primary osteoarthritis of left knee Acute bilateral low back pain, unspecified whether sciatica present documented in this encounter Additional Health Concerns Assessment Noted Time PHQ-9 Depression Total Score: 16 024 9:59 AM EST documented as of this encounter Care Teams Java Systems Analyst Relationship Specialty Start Date End Date Leelee Yanes MD [address] [place] [address] PCP - General Family Medicine 06/11/20 documented as of this encounter
--- OUTSIDE RECORDS SUMMARY | 2025-03-13 12:52 | XMS_ITS | Encounter Summary ---
Author Organization [employer] Address [address] [facility] 7t [place] [address] Care Team Providers Care Middle School Guidance Counselor Name Role Phone Leelee Yanes MD Primary Care Provider + Reason for Visit * Reason Comments Med Refill Encounter Details Date Type Department Care Team (Late st Contact Info) Description 06/10/2024 Refill [facility] [address] [place] [address] Leelee Yanes MD [address] [place] [address] Lumbar radiculopathy; Primary osteoarthritis of left knee; [...] Description 06/02/2025 1:00 PM EST Clinical Support [facility] [address] [place] [address] Yoana Perry RN documented as of this encounter Visit Diagnoses Diagnosis Lumbar radiculopathy Thoracic or lumbosacral neuritis or radiculitis, unspecified Primary osteoarthritis of left knee Acute bilateral low back pain, unspecified whether sciatica present documented in this encounter Additional Health Concerns Assessment Noted Time PHQ-9 Depression Total Score: 16 024 9:59 AM EST documented as of this encounter Care Teams Middle School Guidance Counselor Relationship Specialty Start Date End Date Leelee Yanes MD [address] [place] [address] PCP - General Family Medicine 06/11/20 documented as of this encounter
--- OUTSIDE RECORDS SUMMARY | 2025-03-13 12:52 | XMS_ITS | Encounter Summary ---
Author Organization [employer] Address [address] [facility] 7t [place] [address] Care Team Providers Care Flexographic Press Set Up Operator Name Role Phone Leelee Yanes MD Primary Care Provider + Encounter Details Date Type Department Care Team ([facility] Contact Info) Description 01/23/2023 Orders Only [facility] & PEDS [address] [place], [place] [phone] Ghada Isidro LPN Social History Tobacco Use [...] Description 06/02/2025 1:00 PM EST Clinical Support [facility] [address] [place] [address] Yoana Perry RN documented as of this encounter Visit Diagnoses Not on filedocumented in this encounter Additional Health Concerns Assessment Noted Time PHQ-9 Depression Total Score: 14 023 9:55 AM EDT documented as of this encounter Care Teams Flexographic Press Set Up Operator Relationship Specialty Start Date End Date Leelee Yanes MD [address] [place] [phone] PCP - General Family Medicine 06/11/20 documented as of this encounter
--- OUTSIDE RECORDS SUMMARY | 2025-03-13 12:52 | XMS_ITS | Clinical Summary ---
Author Organization [address] [facility] Address [address] [place] [address] Phone Care Team Providers Care Kinesiology Internship Name Role Phone Leelee Ynaes MD Primary Care Provider + [phone] Allergies No known active allergies Medications acetaminophen [...] complication, without long-term current use of insulin ([facility] V24, [facility] V28) 05/07/2024 [...] Encounters Date Type Department Care Team Description 03/04/2025 2:45 PM EST Office Visit Orthopedic Surgery [facility] [address] [phone] Sudeep De La Vega, DPM Controlled type 2 diabetes with neuropathy ([facility] V24, CMS/[facility]ER[facility] V28) (Primary Dx); PAD (peripheral artery disease) ([facility] V24); Arthritis of both feet; Dermatophytosis, nail 01/07/2025 2:30 PM EDT Office Visit Orthopedic [facility] [address] [phone] Sudeep De La Vega, DPM Controlled type 2 diabetes with neuropathy (CMS/HCC V24, CMS/HCC V28) (Primary Dx); PAD (peripheral artery disease) ([facility]/HCC V24); Equinus contracture of right ankle; Plantar fasciitis 12/31/2024 3:00 PM EDT Office Visit Orthopedic [facility] [address] [phone] Sudeep De La Vega, DPM Controlled type 2 diabetes with neuropathy ([facility]/HCC V24, CMS/HCC V28) (Primary Dx); PAD (peripheral artery disease) ([facility]/HCC V24); Arthritis of both feet; Dermatophytosis, nail; [...] Care Team (Late st Contact Info) Description 05/06/2025 2:45 PM EST Office Visit Orthopedic Surgery - [place] [address] [phone] Sudeep De La Vega, JOHANNY [address] [address] Health Maintenance Due Date Last Done Comments [...] Diabetes: Annual Urine Albumin-Creatinine Ratio (uACR) 05/07/2024 COVID-19 Vaccine ( season) 2024 02/16/2021, 08/03/2020, 07/13/2020 Influenza Vaccine (#1) 2024 3, 05/10/2021, 01/27/2020, Additional history exists Diabetes: Blood Sugar Control Test (HGBA1C) 08/25/2025 02/24/2025, 01/23/2025, 02/20/2024 Diabetes: Annual Foot Exam 12/31/2025 12/31/2024 Diabetes: Annual GFR (Glomerular Filtration Rate) 02/10/2026 02/10/2025, 02/10/2025, 01/23/2025, Additional history exists Hypertension/CHF/CAD Annual BMP Blood Test 02/10/2026 02/10/2025, 02/10/2025, 01/23/2025, Additional history exists Hepatitis B Vaccines Aged [...] Months Insurance MEDICAID - [place] Care Teams Kinesiology Internship Relationship Specialty Start Date End Date Leelee Yanes MD [address] [place] [phone] PCP - General 06/02/23
--- OUTSIDE RECORDS SUMMARY | 2025-03-13 12:52 | XMS_ITS | Encounter Summary ---
Author Organization [employer] Address [address] [place] [address] 7t [place] [address] Care Team Providers Care Oven Stripper Name Role Phone Leelee Yanes MD Primary Care Provider + Reason for Visit * Reason Comments Med Refill Encounter Details Date Type Department Care Team ([facility] st Contact Info) Description 02/21/[address] [facility] [address] [place] [address] Leelee Yanes MD [address] [place] [address] Lumbar radiculopathy; Primary osteoarthritis of left knee; [...] Description 06/02/2025 1:00 PM EST Clinical Support [facility] [address] [place] [address] Yoana Perry RN documented as of this encounter Visit Diagnoses Diagnosis Lumbar radiculopathy Thoracic or lumbosacral neuritis or radiculitis, unspecified Primary osteoarthritis of left knee Acute bilateral low back pain, unspecified whether sciatica present documented in this encounter Additional Health Concerns Assessment Noted Time PHQ-9 Depression Total Score: 15 025 9:19 AM EDT documented as of this encounter Care Teams Oven Stripper Relationship Specialty Start Date End Date Leelee Yanes MD [address] [place] [address] PCP - General Family Medicine 06/11/20 documented as of this encounter
--- OUTSIDE RECORDS SUMMARY | 2025-03-13 12:52 | XMS_ITS | Encounter Summary ---
Author Organization [employer] Address [address] [facility] 7t [place] [address] Care Team Providers Care Farm Machinery Mechanic Name Role Phone Leelee Yanes MD Primary Care Provider + Reason for Visit * Reason Comments Med Refill Encounter Details Date Type Department Care Team (Late st Contact Info) Description 10/10/[address] [facility] PEDS [address] [place] [address] Leelee Yanes MD [address] [place] [address] Lumbar radiculopathy; Primary osteoarthritis of left knee; [...] PM EST Clinical Support [facility] [address] [place] [address] Yoana Perry RN documented as of this encounter Visit Diagnoses Diagnosis Lumbar radiculopathy Thoracic or lumbosacral neuritis or radiculitis, unspecified Primary osteoarthritis of left knee Acute bilateral low back pain, unspecified whether sciatica present documented in this encounter Additional Health Concerns Assessment Noted Time PHQ-9 Depression Total Score: 16 024 9:59 AM EST documented as of this encounter Care Teams Farm Machinery Mechanic Relationship Specialty Start Date End Date Leelee Yanes MD [address] [place] [address] PCP - General Family Medicine 06/11/20 documented as of this encounter
--- OUTSIDE RECORDS SUMMARY | 2025-03-13 12:52 | XMS_ITS | Encounter Summary ---
Author Organization [employer] Address [address] [facility] 7t [place] [address] Care Team Providers Care Lime Mixer Tender Name Role Phone Leelee Yanes MD Primary Care Provider + Encounter Details Date Type Department Care Team ([facility] st Contact Info) Description 02/17/2023 Telephone [facility] MEDICINE [address] [place], [place] [phone] Leelee Yanes MD [address] [place] [address] Social History Tobacco Use Types Packs/Day Years [...] C3 requesting a call in regards to PUNCH MACHINE HAND form. Please contact parvez at [phone] documented in this encounter Plan of Treatment Upcoming Encounters Date Type Department Care Team (Late st Contact Info) Description 06/02/2025 1:00 PM EST Clinical Support [facility] MEDICINE [address] [place] [address] Yoana Perry, RN documented as of this encounter Visit Diagnoses Not on filedocumented in this encounter Additional Health Concerns Assessment Noted Time PHQ-9 Depression Total Score: 14 023 9:55 AM EDT documented as of this encounter Care Teams Lime Mixer Tender Relationship Specialty Start Date End Date Leelee Yanes MD [address] [place] [address] PCP - General Family Medicine 06/11/20 documented as of this encounter
--- OUTSIDE RECORDS SUMMARY | 2025-03-13 12:52 | XMS_ITS | Encounter Summary ---
Author Organization [email or web address] [facility] Address [address] [place] [address] 7t [place] [address] Care Team Providers Care Hotel Supplies Salesperson Name Role Phone Leelee Yanes MD Primary Care Provider + Encounter Details Date Type Department Care Team (Late st Contact Info) Description 05/18/2022 Orders Only [facility] MEDICINE [address] [place] [address] Ghada Isidro LPN Social History Tobacco Use [...] 06/02/2025 1:00 PM EST Clinical Support [facility] [address] [place] [phone] Yoana Perry, RN documented as of this encounter Visit Diagnoses Not on filedocumented in this encounter Care Teams Hotel Supplies Salesperson Relationship Specialty Start Date End Date Leelee Yanes MD [address] [place] [address] PCP - General Family Medicine 06/11/20 documented as of this encounter
--- OUTSIDE RECORDS SUMMARY | 2025-03-13 12:52 | XMS_ITS | Encounter Summary ---
Author Organization [employer] Address [address] [place] [address] 7t [place] [address] Care Team Providers Care Sql Server Developer Name Role Phone Leelee Yanes MD Primary Care Provider + Reason for Visit * Reason Comments Med Refill Encounter Details Date Type Department Care Team (Late st Contact Info) Description 03/06/2025 Refill [facility] MEDICINE [address] [place] [address] Leelee Yanes MD [address] [place] [address] Lumbar radiculopathy; Primary osteoarthritis of left knee; Acute bilateral low back pain, unspecified whether sciatica present Social History Tobacco Use Types Packs/Day Years Used Date Smoking Tobacco: Never Passive Smoke Exposure: Never Smokeless Tobacco: Never Alcohol Use Standard [...] Description 06/02/2025 1:00 PM EST Clinical Support [facility] [address] [place] [address] Yoana Perry RN documented as of this encounter Visit Diagnoses Diagnosis Lumbar radiculopathy Thoracic or lumbosacral neuritis or radiculitis, unspecified Primary osteoarthritis of left knee Acute bilateral low back pain, unspecified whether sciatica present documented in this encounter Additional Health Concerns Assessment Noted Time PHQ-9 Depression Total Score: 15 025 9:19 AM EDT documented as of this encounter Care Teams Sql Server Developer Relationship Specialty Start Date End Date Leelee Yanes MD [address] [place] [address] PCP - General Family Medicine 06/11/20 documented as of this encounter
--- OUTSIDE RECORDS SUMMARY | 2025-03-13 12:52 | XMS_ITS | Encounter Summary ---
Author Organization [employer] Address [address] [place] [address] 7t [place] [address] Care Team Providers Care Senior Reservoir Engineer Name Role Phone Leelee Yanes MD Primary Care Provider + Reason for Visit * Reason Comments Med Refill Encounter Details Date Type Department Care Team (Late st Contact Info) Description 01/22/2025 Refill [facility] MEDICINE [address] [place] [address] Leelee Yanes MD [address] [place] [address] Lumbar radiculopathy; Primary osteoarthritis of left knee; [...] 1:00 PM EST Clinical Support [facility] MEDICINE [address] [place] [address] Yoana Perry RN documented as of this encounter Visit Diagnoses Diagnosis Lumbar radiculopathy Thoracic or lumbosacral neuritis or radiculitis, unspecified Primary osteoarthritis of left knee Acute bilateral low back pain, unspecified whether sciatica present documented in this encounter Additional Health Concerns Assessment Noted Time PHQ-9 Depression Total Score: 16 024 9:59 AM EST documented as of this encounter Care Teams Senior Reservoir Engineer Relationship Specialty Start Date End Date Leelee Yanes MD [address] [place] [address] PCP - General Family Medicine 06/11/20 documented as of this encounter
--- OUTSIDE RECORDS SUMMARY | 2025-03-13 12:52 | XMS_ITS | Patient Health Record ---
Author Organization [facility] Address [address] [place] [address] Care Team Providers Care Radio Assembler Name Role Phone Yoel Yanes MD Primary Care Provider Unavail able Shay Araya Unavailable [phone] Allergies Allergen (clinical drug ingredient) Drug/Non Drug Allergy documented on EMR Reaction Allergy Type Onset Date Status Rocephin Unknown Drug Allergy Active Keflex Unknown Drug Allergy Active sulfamethoxazole / trimethoprim Bactrim Unknown Drug Allergy Active Results Component Value Reference Range Notes Glucose, Whole Blood Reviewed date:11/16/2024 01:03:38 AM Interpretation: Performing Lab:[facility], [address] [place] [phone] Notes/Report: Glucose, Whole Blood 94 60-115 mg/dL METER # : [id number] Pathology (Not yet reviewed by provider) Interpretation: Performing Lab:[facility], [address] [place] [phone] Notes/Report: Reason For Referral Referring Provider First Name Ivana Referring Provider Last Name Eduardo Referred Organization [facility] Referred Provider Shay Araya Referred Address [address] [facility],[place], [place],[address], Referred Provider Specialty Gastroentero logy General Notes Carri Vidal 2024 01:54:30 PM requested a [facility] referral from [facility] for visit with Dr. Araya on 08-07-2024 [...] morning Orally Once a day Active Ipratropium [place] 0.03 % INHALE 1-2 SPRAYS NASALLY NEEDED [...] Status W/U Status Risk Notes Problem Diarrhea (66309264) Diarrhea (787.91) Active confirmed Problem Colon cancer screening (103359719) Colon cancer screening (V76.51) Active confirmed Problem Gastroesophageal reflux disease (863955730) GERD (gastroesopha geal reflux disease) (530.81) Active confirmed Problem Colon cancer screening (359743349) Colon cancer screening (Z12.11) Active confirmed Problem Dysphagia (58741350) Dysphagia (R13.10) Active confirmed Problem Gastroesophageal reflux disease (422721986) GERD (gastroesopha geal reflux disease) (K21.9) Active [...] N/A Encounters Encounter Location Date Provider Diagnosis [facility] [address] [place], [place] [id number] 11/15/2024 Shay Araya [facility] [address] [place] [phone] 08/07/2024 Shay Quiana Colon cancer screening Z12.11 ; Dysphagia R13.10 and GERD (gastroesophageal reflux disease) K21.9 [facility] [address] [place] [phone] 08/07/2024 Shay Araya Assessments Encounter Date Diagnosis [...] Of note, there will be a medical management specialist present on the day of the procedure [...] Of note, there will be a medical management specialist present on the day of the procedure [...] Of note, there will be a medical management specialist present on the day of the procedure [...] Start Date Coverage End Date [facility] [address] [place]CI[place]O [phone] [id number] ANN-MARIE HARRIS Self - patient is the insured Medical (General) History Medical History History ICD Code Neg. colonoscopy in 2001 GERD-EGD in 2001 with no esophagitis, HH , nor Leonardo's Allergic rhinitis Back pain Asthma Hypertension Hyperlipidemia Obesity Sleep apnea-uses CPAP Denies [place],CVA,renal disease Depression/Anxiety Arthritis NIDDM Negative screening colonoscopy in 06/2014 Kidney stones Surgical History Surgery Date(Month/Year) Gastric sleeve with Dr. 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 Rubi
--- OUTSIDE RECORDS SUMMARY | 2025-03-13 12:52 | XMS_ITS | Data Portability ---
Author Organization [place] [facility] Address [address] [place] [phone] Assessment Encounter Date Assessment Date Assessment LastModified [...] care doctor having upper and lower endoscopy. [email or web address] Not available 11/28/2023 09:22:16 Plan of Treatment [...] Address Organization Details Recorded Time Chronic hoarseness 6154451197004 Active 2023 YIN DE SANTIAGO MD 100 [facility],[address], [address] 09:20:04 Feeling of lump in throat 343814747 Active 2023 YIN DE SANTIAGO MD [address] [address], [place], [phone], [facility] 4 09:20:10 Obstructive sleep apnea syndrome 22975287 Active 2023 YIN DE SANTIAGO MD [address] [address], [place], [phone], [facility] [place] 4 09:20:14 Moderate persistent asthma 397792797 Active 2023 YIN DE SANTIAGO MD [address] [address], [place], [phone], [facility] - [facility] [place] 4 09:20:21 Problem Notes None recorded. Procedures Surgical History Date Name Laterality Status Provider Name and Address Organization Details Recorded Time 4 FOL_Reflux_J MS completed YIN REEVES MD [address], [address], [facility] - [facility] [place] 11/28/2023 09:22:24 Gastric bypass for obesity completed Dustin Francis [place] [facility] [place] 11/28/2023 09:27:15 Imaging Results None recorded. 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 Functional Status None recorded. Mental Status None recorded. Family History Nothing Reported. Medical History No medical history recorded. Gynecological HistoryNo gynecological history recorded. Obstetrics History GPAL:G 0 P 0 0 0 0 Past Encounters Encounter ID Performer Location Encounter Start Date Encounter Closed Date Diagnosis/Indication Diagnosis SNOMED-CT Code Diagnosis ICD10 Code Diagnosis IMO Codes Diagnosis Note [id number] YIN ZAVALETA MD [facility] [address] [phone] 11/28/2023 08:57:25 11/28/2023 09:25:04 Chronic hoarseness 9692813406 105 R49.0 Feeling of lump in throat 214247030 R09.89 Obstructiv e sleep apnea syndrome 84142271 G47.33 Moderate p ersistent asthma 946959290 J45.40 Health Concerns Section Related Observation LastModified by Organization Detai ls LastModified Time None Recorded Concern Status LastModified by Organization Details LastModified Time None Recorded Advance Directives Directive None Recorded Payers Insurance Date Sequence Insurance Name Policy Number Policy Angel Covered Member ID Angel Member ID Guarantor Name 11/28/2023 1 [place] [facility] Ann-Marie Flores [id number] Ann-Marie Flores Notes Date Note Type Note Provider Name and Address Organization Details Recorded Time 11/28/2023 text/html Long standing GERD, gastritis, KAYLEE, asthma and hoarseness. Feels throat irritated with spicy food leading ot cough and tickle in throat. Feels trouble swallowing for a long time. Prior barium swallows and hx of gastric bypass for weight loss. Swallowing issue for many years.Waiting for colonoscopy IYN REEVES MD [address] [place] [address], [place], [address], [facility] - [facility] 11/28/2023 09:23:20 OBGyn Episode No OBEpisode recorded.
--- OUTSIDE RECORDS SUMMARY | 2025-03-13 12:52 | XMS_ITS | Encounter Summary ---
Author Organization [employer] Address [address] [place] [address] 7t [place] [address] Care Team Providers Care Mortgage Protection Specialist Name Role Phone Leelee Yanes MD Primary Care Provider + Reason for Visit * Reason Comments Med Refill Encounter Details Date Type Department Care Team (Late Contact Info) Description 08/31/2022 Refill [facility] MED[facility] [address] [place] [address] Leelee Yanes MD [address] [place] [address] Acute bilateral low back pain, unspecified whether [...] 1:00 PM EST Clinical Support [facility] MED[facility]INE [address] [place] [address] Yoana Perry, ESTEFANÍA documented as of this encounter Visit Diagnoses Diagnosis Acute bilateral low back pain, unspecified whether sciatica present documented in this encounter Additional Health Concerns Assessment Noted Time PHQ-9 Depression Total Score: 14 023 9:55 AM EDT documented as of this encounter Care Teams Mortgage Protection Specialist Relationship Specialty Start Date End Date Leelee Yanes MD [address] [place] [address] PCP - General Family Medicine 06/11/20 documented as of this encounter
--- OUTSIDE RECORDS SUMMARY | 2025-03-13 12:52 | XMS_ITS | Encounter Summary ---
Author Organization [employer] Address [address] [facility] 7t [place] [address] Care Team Providers Care Aix System Administrator Name Role Phone Leelee Yanes MD Primary Care Provider + Reason for Visit * Reason Comments Med Refill Encounter Details Date Type Department Care Team (Late st Contact Info) Description 06/06/2024 Refill [facility] MED & PEDS [address] [place] [address] Leelee Yanes MD [address] [place] [address] Lumbar radiculopathy; Primary osteoarthritis of left knee; [...] Description 06/02/2025 1:00 PM EST Clinical Support [facility] MEDICINE [address] [place] [address] Yoana Perry RN documented as of this encounter Visit Diagnoses Diagnosis Lumbar radiculopathy Thoracic or lumbosacral neuritis or radiculitis, unspecified Primary osteoarthritis of left knee Acute bilateral low back pain, unspecified whether sciatica present documented in this encounter Additional Health Concerns Assessment Noted Time PHQ-9 Depression Total Score: 16 024 9:59 AM EST documented as of this encounter Care Teams Aix System Administrator Relationship Specialty Start Date End Date Leelee Yanes MD [address] [place] [address] PCP - General Family Medicine 06/11/20 documented as of this encounter
--- OUTSIDE RECORDS SUMMARY | 2025-03-13 12:52 | XMS_ITS | Encounter Summary ---
Author Organization [employer] Address [address] [place] [address] 7t [place] [address] Care Team Providers Care Business Project Analyst Name Role Phone Leelee Yanes MD Primary Care Provider + Reason for Visit * Reason Comments Med Refill Encounter Details Date Type Department Care Team (Late Contact Info) Description 01/06/2023 Refill [facility] MEDICINE [address] [place] [phone] Leelee Yanes MD [address] [place] [phone] Lumbar radiculopathy; Primary osteoarthritis of left knee; [...] Description 06/02/2025 1:00 PM EST Clinical Support [facility]INE [address] [place] [phone] Yoana Perry RN documented as of this encounter Visit Diagnoses Diagnosis Lumbar radiculopathy Thoracic or lumbosacral neuritis or radiculitis, unspecified Primary osteoarthritis of left knee Acute bilateral low back pain, unspecified whether sciatica present documented in this encounter Additional Health Concerns Assessment Noted Time PHQ-9 Depression Total Score: 14 023 9:55 AM EDT documented as of this encounter Care Teams Business Project Analyst Relationship Specialty Start Date End Date Leelee Yanes MD [address] [place] [phone] PCP - General Family Medicine 06/11/20 documented as of this encounter
--- OUTSIDE RECORDS SUMMARY | 2025-03-13 12:52 | XMS_ITS | Encounter Summary ---
Author Organization [employer] Address [address] [facility] 7t [place] [address] Care Team Providers Care Admitting Representative Name Role Phone Leelee Yanes MD Primary Care Provider + Reason for Visit * Reason Comments Med Refill Encounter Details Date Type Department Care Team (Late st Contact Info) Description 03/07/[address] [facility] MEDICINE [address] [place] [address] Yulia Perez MD [address] [place] [address] Lumbar radiculopathy; Primary osteoarthritis of left knee; [...] PM EST Clinical Support [facility] MEDICINE [address] [place] [phone] Yoana Perry RN documented as of this encounter Visit Diagnoses Diagnosis Lumbar radiculopathy Thoracic or lumbosacral neuritis or radiculitis, unspecified Primary osteoarthritis of left knee Acute bilateral low back pain, unspecified whether sciatica present documented in this encounter Additional Health Concerns Assessment Noted Time PHQ-9 Depression Total Score: 14 023 9:55 AM EDT documented as of this encounter Care Teams Admitting Representative Relationship Specialty Start Date End Date Leelee Yanes MD [address] [place] [phone] PCP - General Family Medicine 06/11/20 documented as of this encounter
--- OUTSIDE RECORDS SUMMARY | 2025-03-13 12:52 | XMS_ITS | Encounter Summary ---
Author Organization [employer] Address [address] [place] [address] 7t [place] [address] Care Team Providers Care Manager Unit Name Role Phone Leelee Yanes MD Primary Care Provider + Reason for Visit * Reason Comments Med Refill Encounter Details Date Type Department Care Team (Late st Contact Info) Description 01/18/2023 Refill [facility] MEDICINE [address] [place] [phone] Leelee Yanes MD [address] [place] [phone] Social History Tobacco Use Types Packs/Day Years [...] Description 06/02/2025 1:00 PM EST Clinical Support [facility] MEDICINE [address] [place] [address] [phone] Yoana Perry RN documented as of this encounter Visit Diagnoses Not on filedocumented in this encounter Additional Health Concerns Assessment Noted Time PHQ-9 Depression Total Score: 14 023 9:55 AM EDT documented as of this encounter Care Teams Manager Unit Relationship Specialty Start Date End Date Leelee Yanes MD [address] [place] [address] PCP - General Family Medicine 06/11/20 documented as of this encounter
--- OUTSIDE RECORDS SUMMARY | 2025-03-13 12:52 | XMS_ITS | Encounter Summary ---
Author Organization [employer] Address [address] [facility] 7t [place] [address] Care Team Providers Care Rigger Third Name Role Phone Leelee Yanes MD Primary Care Provider + Reason for Visit * Reason Comments Med Refill Encounter Details Date Type Department Care Team (Late Contact Info) Description 09/04/2022 Refill [facility] MED & PEDS [address] [place] [address] Leelee Yanes MD [address] [place] [address] assisted current use of diuretic Social History Tobacco [...] Description 06/02/2025 1:00 PM EST Clinical Support [facility] MEDICINE [address] [place] [address] Yoana Perry RN documented as of this encounter Visit Diagnoses Diagnosis manager terminal current use of diuretic documented in this encounter Additional Health Concerns Assessment Noted Time PHQ-9 Depression Total Score: 14 023 9:55 AM EDT documented as of this encounter Care Teams Rigger Third Relationship Specialty Start Date End Date Leelee Yanes MD [address] [place] [address] PCP - General Family Medicine 06/11/20 documented as of this encounter
--- OUTSIDE RECORDS SUMMARY | 2025-03-13 12:52 | XMS_ITS | Encounter Summary ---
Author Organization [employer] Address [address] [place] [address] 7t [place] [address] Care Team Providers Care Retail Loan Originator Name Role Phone Leelee Yanes MD Primary Care Provider + Reason for Visit * Reason Comments Med Refill Encounter Details Date Type Department Care Team ([facility] st Contact Info) Description 03/15/2024 Refill [facility] MEDICINE [address] [place] [address] Leelee Yanes MD [address] [place], [place] [phone] Type 2 diabetes mellitus without complication, without long-term current use of insulin ([facility]) Social History Tobacco Use Types [...] Description 06/02/2025 1:00 PM EST Clinical Support [facility] MEDICINE [address] [place] [address] Yoana Perry RN documented as of this encounter Visit Diagnoses Diagnosis Type 2 diabetes mellitus without complication, without long-term current use of insulin (HCC) documented in this encounter Additional Health Concerns Assessment Noted Time PHQ-9 Depression Total Score: 16 024 9:59 AM EST documented as of this encounter Care Teams Retail Loan Originator Relationship Specialty Start Date End Date Leelee Yanes MD [address] [place] [address] PCP - General Family Medicine 06/11/20 documented as of this encounter
--- OUTSIDE RECORDS SUMMARY | 2025-03-13 12:52 | XMS_ITS | Encounter Summary ---
Author Organization [employer] Address [address] [place] [address] 7t [place] [address] Care Team Providers Care Regional Sales Director Name Role Phone Leelee Yanes MD Primary Care Provider + Encounter Details Date Type Department Care Team (Late st Contact Info) Description 05/03/2022 Orders Only [facility] MED [facility] PEDS [address] [place] [address] Marbella Munoz LPN Social History Tobacco Use [...] Description 06/02/2025 1:00 PM EST Clinical Support [facility] MEDICINE [address] [place] [address] Yoana Perry, RN documented as of this encounter Visit Diagnoses Not on filedocumented in this encounter Care Teams Regional Sales Director Relationship Specialty Start Date End Date Leelee Yanes MD [address] [place], [place] [phone] PCP - General Family Medicine 06/11/20 documented as of this encounter
--- OUTSIDE RECORDS SUMMARY | 2025-03-13 12:52 | XMS_ITS | Encounter Summary ---
Author Organization [employer] Address [address] [facility] 7t [place] [address] Care Team Providers Care Restaurant Cook Name Role Phone Leelee Yanes MD Primary Care Provider + Reason for Visit * Reason Comments Med Refill Encounter Details Date Type Department Care Team ([facility] st Contact Info) Description 03/10/2025 Refill [facility] MED [facility] PEDS [address] [place] [address] Leelee Yanes MD [address] [place] [address] correction current use of diuretic Social History Tobacco [...] 1:00 PM EST Clinical Support [facility] MED[facility] [address] [place] [address] Yoana Perry RN documented as of this encounter Visit Diagnoses Diagnosis correction current use of diuretic documented in this encounter Additional Health Concerns Assessment Noted Time PHQ-9 Depression Total Score: 15 025 9:19 AM EDT documented as of this encounter Care Teams Restaurant Cook Relationship Specialty Start Date End Date Leelee Yanes MD [address] [place] [address] PCP - General Family Medicine 06/11/20 documented as of this encounter
--- OUTSIDE RECORDS SUMMARY | 2025-03-13 12:53 | XMS_ITS | Encounter Summary ---
Author Organization [employer] Address [address] [facility] [address] [place] [address] Care Team Providers Care Placement Specialist Name Role Phone Leelee Yanes MD Primary Care Provider + Encounter Details Date Type Department Care Team ([facility] Contact Info) Description 07/19/2022 Orders Only [facility] MED & PEDS [address] [place], [place] [phone] Marbella Munoz LPN Social History Tobacco Use [...] Description 06/02/2025 1:00 PM EST Clinical Support [facility] MEDICINE [address] [place], [place] [phone] Yoana Perry RN documented as of this encounter Visit Diagnoses Not on filedocumented in this encounter Care Teams Placement Specialist Relationship Specialty Start Date End Date Leelee Yanes MD [address] [place] [address] PCP - General Family Medicine 06/11/20 documented as of this encounter
--- OUTSIDE RECORDS SUMMARY | 2025-03-13 12:53 | XMS_ITS | Encounter Summary ---
Author Organization [employer] Address [address] [place] [address] [address] [place] [address] Care Team Providers Care Coach Name Role Phone Leelee Yanes MD Primary Care Provider + Reason for Visit * Reason Comments Med Refill Encounter Details Date Type Department Care Team ([facility] Contact Info) Description 08/04/2022 Refill [facility] MEDICINE [address] [place] [phone] Marbella Carlin DO [address] [place], [place] [phone] Social History Tobacco Use Types Packs/Day Years [...] Description 06/02/2025 1:00 PM EST Clinical Support [facility] MEDICINE [address] [place] [phone] Yoana Perry RN documented as of this encounter Visit Diagnoses Not on filedocumented in this encounter Care Teams Coach Relationship Specialty Start Date End Date Leelee Yanes MD [address] [place] [phone] PCP - General Family Medicine 06/11/20 documented as of this encounter
--- OUTSIDE RECORDS SUMMARY | 2025-03-13 12:53 | XMS_ITS | Encounter Summary ---
Author Organization [employer] Address [address] [place] [address] 7[address] [place] [address] Care Team Providers Care Gas Dispenser Name Role Phone Leelee Yanes MD Primary Care Provider + Reason for Visit * Reason Comments Med Refill Encounter Details Date Type Department Care Team (Late st Contact Info) Description 08/02/2022 Refill [facility] MEDICINE [address] [place] [phone] Leelee Yanes MD [address] [place] [phone] Acute bilateral low back pain, unspecified whether [...] Description 06/02/2025 1:00 PM EST Clinical Support [facility] MEDICINE [address] [place] [phone] Vicky, Yoana, RN documented as of this encounter Visit Diagnoses Diagnosis Acute bilateral low back pain, unspecified whether sciatica present documented in this encounter Care Teams Gas Dispenser Relationship Specialty Start Date End Date Leelee Yanes MD [address] [place] [phone] PCP - General Family Medicine 06/11/20 documented as of this encounter
[2025-03-13 14:17] LABS: Magnesium 1.7 mg/dL (1.6-2.6)
== END 2025-03-13 10:31 | disposition home or self-care (01) ==
LOC: HO.HHCL 10:30
PROVIDERS: PCP Internal Medicine; Visit Provider Internal Medicine
DX: E83.42 Hypomagnesemia (principal)
CPT/HCPCS: 36415; 83735

== ENCOUNTER 2025-03-20 09:54 | Outpatient (AMB) | payer MEDICAID, SELFPAY ==
--- NOTE | 2025-03-20 09:54 | MHC.OFFVIS ---
Intake Visit Reasons: 1y/US Intake Note: Patient is present today via telehealth for 1yr follow up on US 01/20 Renal US Urology Medication: Vitamin B1, Vitamin B12 Antibiotic Allergies: Sulfa Blood Thinners: None Flight Controls Engineer Required: Yes Flight Controls Engineer Name: Fabian [id number] Information Interpreted: non-clinical & clinical Allergies sulfamethoxazole (From Bactrim) Allergy (Intermediate, Verified 03/20/25 09:57) RASH HPI Comments Details: 03/20/25--59 year old female with history of kidney stones here for follow up. Reviewed renal US 01/20/25- no recurrent renal calculi Results: Renal US - 01/20/25- Unremarkable 03/20/24--58 year old female with history of kidney stones here for follow up. Repeat CTAP 02/05/2024--negative nephrolithiasis negative hydronephrosis. Ann-Marie states she has been doing well denies irritative voiding symptoms or symptoms of renal colic. Again encouraged to continue hydration and monitor diet to decrease stone formation. Monitor kidneys. Follow-up in 1 year with renal ultrasound. 03/20/23--I have reviewed CT Abd/pelvis and renal US. On 03/07/23-renal US does not document renal calcifications. Prior - 01/30/23--CTAP-A 5 mm nonobstructing right renal calculus is seen. I have discussed at length diet modification to decrease risk of forming more kidney stones. I have discussed low oxalate diet and specific foods to avoid including certain green leafy vegetables, chocalate, nuts, tea, beets, rubarb; low sodium, decreased use of animal protein and the importance of hydration drinking up to 2-2.5 liters of fluids and use of adding lemon to water to increase citrate in the diet. A pamphlet is also provided today. Plan: Cont to monitor kidneys. Cont Diet management, Adequate water intake. PFSH Medical History Osteoarthritis of left knee Hypersomnolence Renal calculi Diabetes COVID-19 vaccine administered COPD (chronic obstructive pulmonary disease) Allergic rhinitis KAYLEE on CPAP Obesity (BMI 30-39.9) Obesity Axillary hidradenitis suppurativa GERD (gastroesophageal reflux disease) Asthma Arthritis Hypertension Hyperlipidemia Surgical History S/P total knee arthroplasty (09/20/22) History of carpal tunnel release Hx of knee surgery Hx of cystoscopy History of esophagogastroduodenoscopy (EGD) H/O colonoscopy Hx of total knee replacement History of salpingoophorectomy H/O lithotripsy H/O hemicolectomy H/O tubal ligation Hx of cholecystectomy S/P laparoscopic sleeve gastrectomy Family History Mother No problems noted. Father No problems noted. Son No problems noted. Daughter No problems noted. Son No problems noted. Sister No problems noted. Sister No problems noted. Brother No problems noted. Brother No problems noted. Brother No problems noted. Brother No problems noted. 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 Female Reproductive History Menstrual Age of Menarche: 7 Telehealth Telehealth Telehealth Platform: Telephone Location of provider rendering services: other Location of patient: address on file Patient Identification confirmed using: Name, : Yes Telehealth method: voice only Patient verbally consented to treatment: Yes Patient verbally consented to billing insurance company: Yes Patient informed of any privacy concerns related to visit: Yes Minutes spent on Phone/Video with Pt.: 13 Results Reviewed Results Reviewed: Date of Service: 01/20/25 EXAMINATION: US KIDNEY BILATERAL HISTORY: N20.0 - Calculus of kidney TECHNIQUE: Real-time grayscale ultrasound imaging of the kidneys was performed and images were reviewed. COMPARISON: Comparison is made with the prior examination dated 03/07/2023. FINDINGS: Right kidney: The right kidney measures 10.8 x 5.4 x 5.6 cm. Renal parenchymal echotexture and thickness are normal. There are no masses. There is no hydronephrosis or renal calculi. Left Kidney: The left kidney measures 8.9 x 4.8 x 4.9 cm. Renal parenchymal echotexture and thickness are normal. There are no masses. There is no hydronephrosis or renal calculi. IMPRESSION: Unremarkable renal ultrasound. Date of Service: 02/05/24 CT ABDOMEN AND PELVIS WITHOUT CONTRAST CLINICAL INFORMATION: Calculus of kidney COMPARISON: CT dated January 30, 2023. TECHNIQUE: Multidetector volumetric imaging was performed from the superior aspect of the liver through the pubic symphysis. Sagittal and coronal reformatted images were obtained on the technologist's workstation. This CT examination was performed using dose optimization techniques as appropriate, variously including the following: *Automated exposure control *Adjustment of mA and/or kV according to patient size (this includes techniques or standardized protocols for targeted exams where dose is matched to indication/reason for exam; i.e. extremities or head) *Use of iterative reconstruction technique DLP: 636 mGy-cm FINDINGS: Submitted for interpretation on March 19, 2024. Limited examination of the intra-abdominal organs and vascular structures due to lack of IV contrast. LIVER, GALLBLADDER, AND BILIARY TREE: Liver measures 17 cm. No intrahepatic biliary ductal dilatation. Status post cholecystectomy. No extrahepatic biliary ductal dilatation. PANCREAS: No peripancreatic fluid collections. No main pancreatic ductal dilatation. SPLEEN: 8 cm. ADRENAL GLANDS: No nodular lesions. KIDNEYS AND URETERS: No hydronephrosis. No nephrolithiasis. BLADDER: Fluid-filled nearly collapsed. GASTROINTESTINAL TRACT: Postsurgical changes along the gastroesophageal junction lateral margin/greater curvature of stomach and distal small bowel loops/pericecal. Abundant stool. No intestinal obstruction pattern. No ascites. No pneumoperitoneum. No pneumatosis intestinalis. Numerous diverticula, sigmoid colon. ABDOMINAL WALL: Status post infraumbilical midline laparotomy incision. No gross hernia. LYMPH NODES: Prominent lymph nodes in the inguinal regions bilaterally. VASCULAR: Calcified plaques throughout the abdominal aorta wall without aneurysm. Calcified plaques in the iliac arteries. PELVIC VISCERA: Not evaluated. OSSEOUS STRUCTURES: Multilevel thoracolumbar spondylosis with at acute fracture or gross listhesis. No lytic or blastic lesions. IMPRESSION: No hydronephrosis or nephrolithiasis. Sigmoid colon diverticular disease. Date of Service: 03/07/23 EXAMINATION: US RETROPERITONEAL LIMITED (RENAL ONLY) CLINICAL INFORMATION: Calculus of kidney. COMPARISON: CT abdomen and pelvis 01/30/2023. Renal ultrasound 02/15/2022 and 06/28/2021. X-ray abdomen KUB 01/03/2018. TECHNIQUE: Real-time imaging of the kidneys. FINDINGS: RIGHT KIDNEY: 10.7 x 5.5 x 5.3 cm (SAG x AP x TRV). The kidney is normal in size, contour, and echogenicity. Renal cortical thickness is normal. No calculi or focal parenchymal lesions. No hydronephrosis. LEFT KIDNEY: 10.1 x 5.1 x 5.1 cm (SAG x AP x TRV). The kidney is normal in size, contour, and echogenicity. Renal cortical thickness is normal. No calculi or focal parenchymal lesions. No hydronephrosis. IMPRESSION: Unremarkable kidneys Date of Service: 01/30/23 CT ABDOMEN AND PELVIS WITHOUT CONTRAST CLINICAL INFORMATION: Right flank pain. COMPARISON: Renal ultrasound dated 02/15/2022; CT abdomen and pelvis dated 11/01/2019. TECHNIQUE: Multidetector volumetric imaging was performed from the superior aspect of the liver through the pubic symphysis. Sagittal and coronal reformatted images were obtained on the technologist's workstation. This CT examination was performed using dose optimization techniques as appropriate, variously including the following: *Automated exposure control *Adjustment of mA and/or kV according to patient size (this includes techniques or standardized protocols for targeted exams where dose is matched to indication/reason for exam; i.e. extremities or head) *Use of iterative reconstruction technique DLP: 775 mGy-cm FINDINGS: LUNG BASES: The visualized lung bases are unremarkable. LIVER, GALLBLADDER, AND BILIARY TREE: The liver is normal in size, shape, and attenuation. No focal hepatic lesion or biliary ductal dilatation is present. The gallbladder is surgically absent. PANCREAS: There is mild fat stranding adjacent to the uncinate process (3:34). No focal pancreatic mass or ductal dilatation is noted. There is no acute peripancreatic fluid collection. SPLEEN: Unremarkable. ADRENAL GLANDS: Unremarkable. KIDNEYS AND URETERS: The kidneys are normal in size, shape, and attenuation. At the lower pole of the right kidney (3:35), a 5 mm nonobstructing calculus is seen. No further urinary calculus is seen, and there is no obstructive uropathy. Again, the right ureter crosses the midline, presumably inserted into the leftward urinary bladder. No perinephric stranding. BLADDER: Unremarkable. GASTROINTESTINAL TRACT: There are postoperative changes of the stomach, consistent with a prior sleeve gastrectomy. There is mild diverticulosis, without acute diverticulitis. No bowel obstruction, free intraperitoneal air or abscess is seen. There is no focal bowel wall thickening. There is a patent ileocolic anastomotic staple line. ABDOMINAL WALL: No significant hernia is appreciated. LYMPH NODES: Normal. VASCULAR: There is mild aortoiliac atherosclerotic calcification. No abdominal aortic aneurysm is seen. PELVIC VISCERA: Surgically absent. No pelvic mass, free fluid or lymphadenopathy is seen. OSSEOUS STRUCTURES: There is multi-level marked thoracic and mild lumbar spondylosis. There is no acute or aggressive osseous finding. IMPRESSION: 1. A 5 mm nonobstructing right renal calculus is seen. No further urinary calculus is seen, and is no obstructive uropathy noted bilaterally. 2. There is mild fat stranding adjacent to the uncinate process of the pancreas, raising the question of early pancreatitis. Recommend clinical correlation, possibly to include a serum lipase level. 3. The gallbladder and uterus are surgically absent. 4. No bowel obstruction, free intraperitoneal air or abscess is seen. There is mild diverticulosis, without acute diverticulitis. Postoperative changes are noted, as detailed. 5. There is multi-level marked thoracolumbar spondylosis. No acute or aggressive osseous finding is noted. Assessment & Plan Assessment & Plan (1) History of kidney stones: Code(s): Z87.442 - Personal history of urinary calculi Category: Medical Plan Follow up prn Patient Instructions: The patient had an opportunity to ask questions regarding treatment plan. The patient expressed understanding and agreement with the above treatment plan. The patient is aware they should contact our office by phone for worsening of their current condition or the appearance of new symptoms. Compliance is encouraged with any medications and followup testing that is ordered. It is a privilege to be allowed the opportunity to participate in the urologic care of your patient. If you have any questions or concerns regarding treatment for the above conditions please do not hesitate to contact me. The office telephone contact is [phone]. This note is constructed in part using voice recognition software. While every effort has been made to ensure accuracy medical delivery driver errors may have been included. Yours sincerely, Adal Christiansen MD Coding Level of Care Code Tele Est Pt Level 3 (14319) Diagnoses History of kidney stones Z87.442
== END 2025-03-20 16:30 | disposition home or self-care (01) ==
LOC: HO.HUSH 09:54
PROVIDERS: PCP Internal Medicine; Visit Provider Urology
DX: Z87.442 Personal history of urinary calculi (principal)
CPT/HCPCS: 99213